=== PATIENT | male | born 1935 | race African-American/Black ===

== ENCOUNTER → 2017-06-05 17:18 | Outpatient (CLI) | payer MEDICARE, SELFPAY ==
--- NOTE | 2017-06-05 17:45 | RAD_ITS ---
STUDY: X-RAY CHEST REASON FOR EXAM: Male, 81 years old. Cough, bronchitis TECHNIQUE: Frontal and lateral views COMPARISON: None. FINDINGS: Sternotomy wires are again noted. The lungs are not fully expanded. There is no demonstrated pleural abnormality. Stable mild cardiomegaly. Normal mediastinum and donnie. Normal visualized pulmonary arteries. Calcified aortic arch and descending thoracic aorta. Degenerative changes and scoliosis of the thoracic spine. Normal visualized ribs, clavicles, and shoulders. There is no demonstrated abnormality of the visualized soft tissue structures of the upper abdomen. RAD/Chest PA and Lateral IMPRESSION: No acute pulmonary pathology of the chest. Electronically Signed: Bakari Faust DO at 18:21 EST Tel [phone], Service support ,
== END ==
PROVIDERS: Family Provider Family Medicine Geriatric Medicine; PCP Family Medicine Geriatric Medicine; Visit Provider Family Medicine Geriatric Medicine
DX: J40 Bronchitis, not specified as acute or chronic (principal); R68.83 Chills (without fever)
CPT/HCPCS: 71046; 87633

== ENCOUNTER → 2017-08-05 16:37 | Outpatient (CLI) | payer MEDICARE, SELFPAY ==
[2017-08-05 17:09] LABS: Absolute Lymphocyte Count 2.29 X10^3/ul (0.83-4.51); Basophil# 0.01 X10^3/uL; Basophil% 0.1 % (0-1); Eosinophil# 0.07 X10^3/uL; Hematocrit 40.2 % (40-54); Hemoglobin 13.4 g/dl (13.0-16.5); Lymphocyte # 2.29 X10^3/ul (4.0); Lymphocyte % 33.5 % (19-41); Mean Corp Hgb Conc 33.3 g/gl (32-36); Mean Corpuscular Hgb 30.7 pg (27.0-32.0); Mean Corpuscular Volume 92.2 fL (80-94); Monocyte# 0.42 X10^3/uL; Monocyte% 6.1 % (0-10); Neutrophil # 4.04 X10^3/uL (2.7-7.7); Neutrophil % 59.3 % (47-70); POSITIVE COUNT NO; POSITIVE DIFFERENTIAL NO; POSITIVE MORPHOLOGY NO; Platelet Count 192 K/mm3 (150-450); RBC Distribution Width CV 16.1 % (11.6-14.6); RBC Distribution Width SD 53.5 fl (35.1-43.9); Red Blood Count 4.36 M/mm3 (4.6-6.2); White Blood Count 6.8 K/mm3 (4.4-11.0)
[2017-08-05 17:34] LABS: Erythrocyte Sedimentation Rate 29 mm/hr (0-20)
[2017-08-05 17:56] LABS: Anion Gap 6 (5-15); BUN 17 mg/dL (7-18); CRP < 2.90 mg/L (0.0-3.0); Calcium,Total 9.3 mg/dL (8.5-10.1); Chloride 107 mmol/L (98-107); Creatinine, Serum 1.31 mg/dL (0.70-1.30); EST Glomerular Filtration Rate 56 mL/min (>60); Est Glom Filt Rate - Afr Amer 68 mL/min (>60); Glucose 81 mg/dL (74-106); Potassium 4.5 mmol/L (3.5-5.1); Sodium Level 141 mmol/L (136-145); Uric Acid 7.6 mg/dL (3.5-7.2)
== END ==
PROVIDERS: Family Provider Family Medicine Geriatric Medicine; PCP Family Medicine Geriatric Medicine; Visit Provider Family Medicine Geriatric Medicine
DX: M25.569 Pain in unspecified knee (principal); M79.609 Pain in unspecified limb
CPT/HCPCS: 36415; 80048; 84550; 85025; 85652; 86140

== ENCOUNTER → 2017-08-06 08:47 | Outpatient (CLI) | payer MEDICARE, SELFPAY ==
--- NOTE | 2017-08-05 16:59 | RAD_ITS ---
STUDY: X-RAY - RIGHT KNEE REASON FOR EXAM: Male, 81 years old. Osteoarthritis TECHNIQUE: 3 view(s) of the knee. COMPARISON: 02/03/2013 FINDINGS: Normal visualized distal femur. Normal visualized proximal tibia and fibula. Normal proximal tibiofibular articulation. There is spurring along the articular surface of the patella. There is moderate degenerative arthrosis of the medial femorotibial compartment with moderate joint space narrowing. There is moderate degenerative arthrosis of the lateral femorotibial compartment with moderate joint space narrowing. There is patella janessa. There is no demonstrated joint effusion. There are atherosclerotic calcifications. RAD/Knee 3 Views IMPRESSION: Degenerative changes. No acute bony abnormality. Electronically Signed: Vipul Phipps DO at 10:34 EDT Tel , Service support ,
--- NOTE | 2017-08-06 09:21 | VDLE_ITS ---
Reason For Study: LEG PAIN AND SWELLING RIGHT LEFT GSV is normal. GSV is normal. CFV is compressible, spontaneous, phasic, CFV is compressible, spontaneous, phasic, competent and demonstrates normal competent, and demonstrates normal augmentation. augmentation. FV is compressible, spontaneous, phasic, FV and POP V are patent, compressible, competent and demonstrates normal spontaneous, phasic and demonstrate augmentation. INCOMPETENCY with augmentation. POP V is compressible, spontaneous, phasic, T/P Trunk is compressible. competent and demonstrates normal PTV is compressible. augmentation. LT PerV is compressible. T/P Trunk is compressible. PTV is compressible. RT PerV is compressible. Procedure Exam performed in department. A preliminary report was called and/or faxed to Dr. Tello. Interpretation Summary Deep veins of the lower extremities are bilaterally patent and compressible segmentally. There is no evidence of deep vein thrombosis on either side. Valvular competence appears intact within the proximal deep venous system on the right . On the left, the femoral vein and popliteal vein are incompetent. The left common femoral vein is competent. The greater saphenous veins appear bilaterally patent and compressible segmentally. Ordering Physician: Ashvin Tello Referring Physician: Ashvin Tello Chi Performed By: Binta Marin RVT
== END ==
PROVIDERS: Family Provider Family Medicine Geriatric Medicine; PCP Family Medicine Geriatric Medicine; Visit Provider Family Medicine Geriatric Medicine
DX: R60.0 Localized edema (principal); M17.9 Osteoarthritis of knee, unspecified; R60.9 Edema, unspecified
CPT/HCPCS: 73562; 93970

== ENCOUNTER 2017-10-14 16:41 | Observation (INO) | payer MEDICARE, SELFPAY ==
[2017-10-14] VITALS (10 sets, daily range): BP systolic 127–162; BP diastolic 63–83; PULSE 69–84; RESP 13–22; TEMP 36.8–37.1; O2SAT 93–98; BMI 35.3; BMI 33.5; BMI 33.6
--- NOTE | 2017-10-14 16:53 | EKG12_ITS ---
Test Reason : CP Blood Pressure : / mmHG Vent. Rate : 079 BPM Atrial Rate : 079 BPM P-R Int : 178 ms QRS Dur : 098 ms QT Int : 402 ms P-R-T Axes : 013 -55 -05 degrees QTc Int : 460 ms Sinus rhythm with frequent Premature ventricular complexes Left anterior fascicular block Abnormal ECG Confirmed by ALEXANDER GARZON, KWESI ([id number]), editorial project manager ISABELLE WYMAN ([id number]) on 10/17/2017 1:37:12 PM Referred By: SYEDA Confirmed By:KWESI MUNOZ MD
--- NOTE | 2017-10-14 16:55 | RAD_ITS ---
STUDY: X-RAY CHEST REASON FOR EXAM: Male, 82 years old. PT WITH SUDDEN ONSET OF STERNAL CHEST PAIN WHEN AT EYE DR. TECHNIQUE: Single AP portable view of the chest. COMPARISON: 06.05.17. FINDINGS: The lungs are clear and expanded. There is no demonstrated pleural abnormality. There are calcifications of the coronary arteries. Normal mediastinum and donine. Normal visualized pulmonary arteries. There is atherosclerotic tortuosity of the aortic arch and descending thoracic aorta. There are diffuse degenerative changes of the visualized thoracic spine. There is degenerative osteoarthritis of the bilateral shoulders. There is no demonstrated abnormality of the visualized soft tissue structures of the upper abdomen. RAD/Chest 1 View (Portable) IMPRESSION: Normal x-ray examination of the chest. Electronically Signed: Andrew Chen MD at 17:27 EDT , Service support ,
[2017-10-14 17:49] LABS: Absolute Lymphocyte Count 2.77 X10^3/ul (0.83-4.51); Absolute Neutrophil Count 3.7 X10^3/uL (2.0-7.7); Basophil# 0.02 X10^3/uL; Basophil% 0.3 % (0-1); Eosinophils% 1.4 % (0-5); Hematocrit 43.5 % (40-54); Hemoglobin 14.7 g/dl (13.0-16.5); Lymphocyte # 2.77 X10^3/ul (4.0); Lymphocyte % 38.4 % (19-41); Mean Corp Hgb Conc 33.8 g/gl (32-36); Mean Corpuscular Hgb 31.5 pg (27.0-32.0); Mean Corpuscular Volume 93.3 fL (80-94); Mean Platelet Vol. 10.6 fl (6.2-12.0); Monocyte# 0.58 X10^3/uL; Neutrophil # 3.74 X10^3/uL (2.7-7.7); Neutrophil % 51.8 % (47-70); Platelet Count 221 K/mm3 (150-450); RBC Distribution Width CV 14.9 % (11.6-14.6); RBC Distribution Width SD 50.1 fl (35.1-43.9); Red Blood Count 4.66 M/mm3 (4.6-6.2); White Blood Count 7.2 K/mm3 (4.4-11.0)
[2017-10-14 17:57] LABS: POSITIVE COUNT NO; POSITIVE DIFFERENTIAL NO; POSITIVE MORPHOLOGY NO
[2017-10-14 18:08] LABS: International Normalized Ratio 1.6; Prothrombin Time (Protime)PT. 18.7 SECONDS (11.7-14.9)
[2017-10-14 18:19] LABS: Anion Gap 7 (5-15); BUN 14 mg/dL (7-18); Calcium,Total 9.4 mg/dL (8.5-10.1); Chloride 107 mmol/L (98-107); Creatinine, Serum 1.27 mg/dL (0.70-1.30); EST Glomerular Filtration Rate 58 mL/min (>60); Est Glom Filt Rate - Afr Amer 70 mL/min (>60); Estimated Creatinine Clearance 42.65 ml/min; Glucose 79 mg/dL (74-106); Potassium 4.4 mmol/L (3.5-5.1); Sodium Level 143 mmol/L (136-145)
--- NOTE | 2017-10-14 18:38 | ED.VISSUMM ---
- ER Visit Summary Date of Service: 10/14/17 Chief Complaint: Substernal aching tightness with shortness of breath. History of Present Illness: The patient is a 82 M who presents to the emergency room by ambulance because of midsternal chest discomfort with dyspnea. He is a poor informant. He has known coronary disease with multiple vessels bypassed and multiple stents. He is on Coumadin for recent diagnosis of pulmonary embolus. He was given aspirin by paramedics and nitro. Nitro did help his discomfort. He does have history of orthopnea that is stable. He does report increased swelling of his lower extremities, however. Per review of old records he has had 5 vessels bypassed and multiple stents. He also has history of CVA, congestive heart failure, hypertension, hypercholesterolemia. He has history of tricuspid valve disease. Physical Examination: Vital signs are essentially unremarkable. HEENT exam is unremarkable. Heart is regular. There is no murmur, gallop or rub. Lungs are clear to auscultation. He has well-healed midsternal and midline abdominal scar. There is no abdominal bruit, palpable or pulsatile mass. Difficult to assess pulses because of swelling. There is no asymmetry, discoloration, leg vein distention or tenderness along the description deep venous system. There is no palpable cords. He is alert he is oriented. 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 Chest x-ray reveals median sternal wires. Mild cardiomegaly with limited story volume. No other interpretation was made. There is no evidence of pleural effusion. There is no abnormality of the osseous structures. CBC unremarkable. Electro panels unremarkable. INR is subtherapeutic at 1.6. Troponin is less than 0.015. Emergency Department Course and Treatment: Patient was treated with nitroglycerin sublingual. He received aspirin by squad. Cardiac workup was undertaken. Treatment Plan: PCU for further testing Disposition: Further testing and serial enzymes Impression: 1. Midsternal chest pain 2. History coronary disease 3. History of CVA 4. History hypertension 5. History of hypercholesterolemia 6. History of congestive heart failure 7. History of pulmonary embolus This note was generated with [employer] dictation software. It may contain incorrect words, spelling, and punctuation that were not noted in review of the chart prior to signing ED Disposition - Plan for ED Patient: Chief Complaint: Chest Pain Referrals: Ashvin Tello Chi, MD [Primary Care Provider] -
--- NOTE | 2017-10-14 19:07 | HP.PCM_ITS ---
Problem List (1) Chest pain Status: Acute Qualifiers: Ischemic chest pain type: stable angina pectoris History of Present Illness Date of Admission: 10/14/17 Chief Complaint: chest pain The patient is a 82 year old M with a significant history of multiple CVAs/TIA; CAD with CABG and multiple stents; CHF; pulmonary embolism on warfarin therapy, hypertension and hyperlipidemia who presented with sudden onset excruciating chest pain that started on the day of his admission. 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 The paramedics were called and he was brought to the emergency department. Associated with symptoms is shortness of breath. The patient chest pain improved with nitroglycerin. The patient is a known patient of [facility] and had a last stress test in 2016 which did not show any evidence of ischemia. Past Medical History Past Medical History (Chronic Problems): Chronic Problems (Last Reviewed 10/14/17 @ 19:52 by Bobo Connell MD) History of left heart catheterization (Chronic) Prior to CABG 09/12/2000 @ [facility]; 05/01/[address] Yancey @ [facility]; 08/27/2012 @ [facility] per Dr. Alcala Atherosclerotic heart disease of [place] coronary artery with other forms of angina pectoris (Chronic) CASTILLO graft to LAD, radial art graft to RCA, saphenous vein graft to CFX, saphenous vein graft to OM 1, OM 2 OTCAm 06/21/02 of distal & proximal RCA, PTCA with EASTON to proximal LAD 07/2012 Dizziness and giddiness (Chronic) Precordial chest pain (Chronic) Aortocoronary bypass status (Chronic) CABG 09/12/2000 X 5 vessels: CASTILLO to LAD,left radial artery to RCA, SVG to first snd second DX branches of the LAD and SVG to the lateral CX which 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) Right pulmonary embolus (Chronic) Stroke (Chronic) Hyperlipidemia (Chronic) Hypertension (Chronic) Medical History: Medical History (Last Reviewed 10/14/17 @ 19:52 by Bobo Connell MD) Atherosclerotic heart disease of [place] coronary artery with other forms of angina pectoris (Chronic) I25.118 CASTILLO graft to LAD, radial art graft to RCA, saphenous vein graft to CFX, saphenous vein graft to OM 1, OM 2 OTCAm 06/21/02 of distal & proximal RCA, PTCA with EASTON to proximal LAD 07/2012 Dizziness and giddiness (Chronic) R42 Precordial chest pain (Chronic) 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) Z79.899 Shortness of breath (Chronic) R06.02 Tricuspid valve disorder (Chronic) I07.9 Pulmonary hypertension (Chronic) I27.20 Congestive heart failure (Chronic) I50.9 Systolic dysfunction Family history of hypertension (Chronic) Z82.49 Atherosclerotic heart disease of [place] coronary artery without angina pectoris (Chronic) I25.10 Right pulmonary embolus (Chronic) I26.99 Stroke (Chronic) I63.9 Hyperlipidemia (Chronic) E78.5 Hypertension (Chronic) I10 Allergies diazepam [From Valium] Allergy (Intermediate, Verified 10/14/17 16:42) Other HALLUCINATIONS morphine Allergy (Intermediate, Verified 10/14/17 16:42) Other TWITCHES Home Medications: Ambulatory Orders Medication Instructions Recorded Aspirin [Aspirin, Baby] 81 mg PO DAILY@0800 06/23/13 Metoprolol(XL)Succ [Toprol Xl 25 mg PO DAILY 06/23/13 (Beta Luis Felipe)] Cetirizine HCl [Zyrtec] 10 mg PO DAILY 03/25/15 Finasteride [Proscar] 5 mg PO DAILY 03/25/15 Folic Acid/Vit Bcomp,C [B-Complex 400 mcg PO DAILY 03/25/15 with Vit C Caplet] Furosemide [Lasix] 40 mg PO DAILY 03/25/15 Isosorbide Mononitrate [Isosorbide 60 mg PO DAILY 03/25/15 Mononitrate ER] Multivit-Min/FA/Lycopen/Lutein 1 ea PO DAILY 03/25/15 [Centrum Silver Tablet] Nitroglycerin [Nitrostat] 0.4 mg SUBLINGUAL Q5M PRN 03/25/15 Oxybutynin Chloride [Ditropan Xl] 10 mg PO DAILY 03/25/15 atorvastatin 40 mg tablet 40 mg PO QHS tab 05/08/17 ergocalciferol (vitamin D2) 50,000 50,000 unit PO QMONTH 05/08/17 unit capsule folic acid 400 mcg tablet 400 mcg PO QDAY 05/08/17 lubiprostone 24 mcg capsule 24 mcg PO BID cap 05/08/17 magnesium oxide 400 mg tablet 400 mg PO QDAY tab 05/08/17 pantoprazole 20 mg tablet,delayed See Label Instructions PO QDAY 05/08/17 release hydrocodone 5 mg-acetaminophen 325 1 tab PO Q6H PRN 06/05/17 mg tablet warfarin 5 mg tablet 5 mg PO .COMPLEX tab 06/05/17 Surgical History: Surgical History (Last Reviewed 10/14/17 @ 19:52 by Bobo Connell MD) History of left heart catheterization (Chronic) Z98.890 Prior to CABG 09/12/2000 @ [facility]; 05/01/[address] Yancey @ [facility]; 08/27/2012 @ [facility] per Dr. 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 Monet [facility] Surgical History: coronary bypass surgery, total hip arthroplasty, - - Hiatal hernia surgery. Lives: Spouse/ Significant Other Smoking Status: Former smoker - *Family History Maternal Family History: Family History (Last Reviewed 06/05/17 @ 15:25 by Fito Alcala MD) Father No problems noted. Mother Cancer Brother Throat cancer Brother COPD (chronic obstructive pulmonary disease) Brother No problems noted. Sister COPD (chronic obstructive pulmonary disease) Heart disease Sister COPD (chronic obstructive pulmonary disease) History Items: No pertinent history Paternal Family History: Family History (Last Reviewed 06/05/17 @ 15:25 by Fito Alcala MD) Father No problems noted. Mother Cancer Brother Throat cancer Brother COPD (chronic obstructive pulmonary disease) Brother No problems noted. Sister COPD (chronic obstructive pulmonary disease) Heart disease Sister COPD (chronic obstructive pulmonary disease) History Items: No pertinent history Review of Systems Constitutional: Reports: Fatigue. Denies: Anorexia Eyes: Denies: Double vision, Pain HEENT: Denies: Head Aches, Sinus Congestion, Sinus Drainage Cardiovascular: Reports: Chest Pain, Chest Tightness, Orthopnea - (Chronic) Respiratory: Reports: Shortness of Breath. Denies: Cough, Shortness of breath at rest, Sputum production Gastrointestinal: Denies: Abdominal Pain, Nausea, Vomiting Genitourinary: Denies: Dysuria Musculoskeletal: Reports: Back Pain Skin: Denies: Rash, Wounds Neurological: Denies: Numbness, Tingling, Focal weakness Psychiatric: Denies: Anxiety, Depression, Homicidal Ideations, Suicidal Ideations Hematologic/ Lymphatic: Denies: Easy Bruising, Easy Bleeding VTE Information - Inpt Only VTE Present on Admission: No VTE Mechan Device Prophylaxis: None VTE Pharm Prophylaxis ordered?: No Reason prophylaxis not ordered:: Medical Contraindication - On warfarin for a history of PE. Patient Problems: Active and Suspected Problems (Last Reviewed 10/14/17 @ 19:52 by Bobo Connell MD) Chest pain (Acute) - Physical Exam General: Alert, Oriented x3, Cooperative HEENT: Atraumatic, PERRLA, EOMI, Normocephalic Neck: Supple, No JVD, Negative Carotid Bruits Lungs: Clear to auscultation, Normal air movement Cardiovascular: Regular rate, No murmurs Abdomen: Bowel Sounds Present Extremities: No edema, Capillary Refill Less than 3 Seconds Skin: No rashes, No breakdown Musculoskeletal: No Tenderness to Palpation of Joints or Extremities Neurological: Cranial nerves II-XII grossly intact, - - Motor strength 2/5 in right lower extremity. (Previous CVA).All other extremities 5/5. Range of motion severely limited in right lower extremity. Vital Signs Temp Pulse Resp BP Pulse Ox 98.7 F 71 22 H 152/78 H 95 10/14/17 16:43 10/14/17 18:00 10/14/17 18:00 10/14/17 18:00 10/14/17 18:00 Oxygen Flow Rate (L/min) 2 Oxygen Delivery Method Nasal Cannula Weight: 102.3 kg Body Mass Index (BMI) 35.3 Laboratory Tests Past 24 Hrs 10/14/17 10/14/17 10/14/17 16:55 16:55 16:55 WBC 7.2 RBC 4.66 Hgb 14.7 Hct 43.5 MCV 93.3 MCH 31.5 MCHC 33.8 RDW 14.9 H RDW Differential 50.1 H Plt Count 221 MPV 10.6 Immature Gran % (Auto) 0.100 Neut % (Auto) 51.8 Lymph % (Auto) 38.4 Ballard % (Auto) 8.0 Eos % (Auto) 1.4 Baso % (Auto) 0.3 Absolute Neuts (auto) 3.7 Absolute Lymphs (auto) 2.77 Total Counted Not Reportable PT 18.7 H INR 1.6 Sodium 143 Potassium 4.4 Chloride 107 Carbon Dioxide 29.0 Anion Gap 7 BUN 14 Creatinine 1.27 Estim Creat Clear Calc 42.65 Est GFR (MDRD) Af Amer 70 Est GFR (MDRD) Non-Af 58 L BUN/Creatinine Ratio 11.0 Glucose 79 Calcium 9.4 Troponin I < 0.015 Assessment/Plan All Active Problems (Last Reviewed 10/14/17 @ 19:52 by Bobo Connell MD) Chest pain (Acute) This is an 82 year old gentleman with a significant history of hypertension, CAD status post CABG and stents, CVA, CHF and hyperlipidemia who is a known patient of [facility] presenting with sudden onset chest pain that improved dramatically with nitroglycerin. His last stress test in 2015 did not show evidence of ischemia. His current presentation is concerning for stable angina. Chest pain Likely due to stable angina. However because of his risk factors will continue cardiac enzymes. First cardiac enzymes was negative. Because patient is not known patient of [facility] will consult cardiology. Chest x-ray with a calcification of coronary arteries Nitroglycerin as needed for chest pain The patient received aspirin 324 in route to the ED. Continue aspirin 81 mg daily. Continue metoprolol succinate Continue isosorbide mononitrate Lipitor continued Hypertension Metoprolol and Imdur continue as above Hydralazine as needed for systolic blood pressure 101 60 History of PE On home warfarin INR is sub-therapeutic at 1.6 Warfarin dose adjusted for 5 mg daily to 7.5 mg daily. Daily PT/INR DVT prophylaxis continue Coumadin. Code Visit Inpatient E&M: 99160 Init Hosp L2
--- NOTE | 2017-10-14 20:55 | EKG12_ITS ---
Test Reason : CP REPEAT Blood Pressure : / mmHG Vent. Rate : 066 BPM Atrial Rate : 066 BPM P-R Int : 204 ms QRS Dur : 100 ms QT Int : 434 ms P-R-T Axes : 028 -50 000 degrees QTc Int : 454 ms Poor data quality, interpretation may be adversely affected Sinus rhythm with occasional Premature ventricular complexes and Fusion complexes Left anterior fascicular block Abnormal ECG When compared with ECG of 14-OCT-2017 16:45, MANUAL COMPARISON REQUIRED, DATA IS UNCONFIRMED Confirmed by ALEXANDER GARZON, KWESI ([id number]), development editor ISABELLE WYMAN ([id number]) on 10/17/2017 1:52:54 PM Referred By: JUANI Confirmed By:KWESI MUNOZ MD
[2017-10-14] MEDS: Atorvastatin Calcium 40 MG Tablet PO (23:17)
[2017-10-15] VITALS (8 sets, daily range): BP systolic 110–147; BP diastolic 67–71; PULSE 60–66; RESP 14–16; TEMP 36.7–36.9; O2SAT 93–94
[2017-10-15 04:23] LABS: Absolute Lymphocyte Count 2.62 X10^3/ul (0.83-4.51); Absolute Neutrophil Count 3.7 X10^3/uL (2.0-7.7); Basophil# 0.02 X10^3/uL; Basophil% 0.3 % (0-1); Eosinophil# 0.11 X10^3/uL; Eosinophils% 1.6 % (0-5); Hematocrit 40.6 % (40-54); Hemoglobin 13.7 g/dl (13.0-16.5); Lymphocyte # 2.62 X10^3/ul (4.0); Lymphocyte % 37.6 % (19-41); Mean Corp Hgb Conc 33.7 g/gl (32-36); Mean Corpuscular Hgb 31.5 pg (27.0-32.0); Mean Corpuscular Volume 93.3 fL (80-94); Mean Platelet Vol. 10.6 fl (6.2-12.0); Monocyte# 0.48 X10^3/uL; Monocyte% 6.9 % (0-10); Neutrophil # 3.72 X10^3/uL (2.7-7.7); Neutrophil % 53.5 % (47-70); Platelet Count 201 K/mm3 (150-450); RBC Distribution Width CV 14.7 % (11.6-14.6); RBC Distribution Width SD 50.3 fl (35.1-43.9); Red Blood Count 4.35 M/mm3 (4.6-6.2)
[2017-10-15 04:24] LABS: POSITIVE COUNT NO; POSITIVE DIFFERENTIAL NO; POSITIVE MORPHOLOGY NO
[2017-10-15 04:33] LABS: Anion Gap 10 (5-15); BUN 15 mg/dL (7-18); BUN/Creat Ratio 14.3 RATIO (10-20); Calcium,Total 8.9 mg/dL (8.5-10.1); Chloride 107 mmol/L (98-107); Creatinine, Serum 1.05 mg/dL (0.70-1.30); EST Glomerular Filtration Rate 72 mL/min (>60); Est Glom Filt Rate - Afr Amer 87 mL/min (>60); Estimated Creatinine Clearance 51.59 ml/min; Glucose 93 mg/dL (74-106); Potassium 3.9 mmol/L (3.5-5.1); Sodium Level 142 mmol/L (136-145)
--- NOTE | 2017-10-15 05:55 | EKG12_ITS ---
Test Reason : AM EKG Blood Pressure : / mmHG Vent. Rate : 064 BPM Atrial Rate : 064 BPM P-R Int : 210 ms QRS Dur : 108 ms QT Int : 432 ms P-R-T Axes : 022 -47 -06 degrees QTc Int : 445 ms Sinus rhythm with 1st degree A-V block Left anterior fascicular block Left ventricular hypertrophy Abnormal ECG When compared with ECG of 14-OCT-2017 21:44, MANUAL COMPARISON REQUIRED, DATA IS UNCONFIRMED Confirmed by ALEXANDER GARZON, KWESI ([id number]), movie editor ISABELLE WYMAN ([id number]) on 10/17/2017 1:51:58 PM Referred By: JUANI Confirmed By:KWESI MUNOZ MD
[2017-10-15 07:38] LABS: Partial Thromboplast Time 31.8 Seconds (24.1-36.2)
--- NOTE | 2017-10-15 08:17 | PCM.CONS.C ---
Reason for Consult Date of Consultation: 10/15/17 Reason for Consultation: Chest pain. History of Present Illness: LOVELY SINGH, is a 81 M who presents to the emergency room yesterday. He had been doing well and in his stable state of health until he went to the academic interventionist for a procedure. While there he apparently demonstrated and developed what he says was excruciating chest discomfort. There was no radiation of the discomfort no dizziness or diaphoresis. The emergency medical squad was called and brought him to the emergency room. He says that he had some improvement with sublingual nitroglycerin. He was admitted for further workup.He is a gentleman with a history of coronary artery disease status post coronary bypass surgery. 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 He denies any shortness breath or paroxysmal nocturnal dyspnea or pedal edema. 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 The CASTILLO to the LAD was minimally functional and he had an angioplasty and stenting to the left anterior descending artery. His last stress test was in 2015 with no obvious evidence of ischemia. He has had no neck arm or jaw discomfort suggest angina no dizziness no diaphoresis no near syncope or syncope. His physical exam today demonstrates clear lung colon regular rate and rhythm and no pedal edema. He is scheduled for an awaiting stress testing this morning. [] Past Medical History Allergies/Adverse Reactions: Allergies diazepam [From Valium] Allergy (Intermediate, Verified 10/14/17 16:42) Other HALLUCINATIONS morphine Allergy (Intermediate, Verified 10/14/17 16:42) Other TWITCHES Home Medications: Ambulatory Orders Medication Instructions Recorded Aspirin [Aspirin, Baby] 81 mg PO DAILY@0800 06/23/13 Metoprolol(XL)Succ [Toprol Xl 25 mg PO DAILY 06/23/13 (Beta Luis Felipe)] Cetirizine HCl [Zyrtec] 10 mg PO DAILY 03/25/15 Finasteride [Proscar] 5 mg PO DAILY 03/25/15 Folic Acid/Vit Bcomp,C [B-Complex 400 mcg PO DAILY 03/25/15 with Vit C Caplet] Furosemide [Lasix] 40 mg PO DAILY 03/25/15 Isosorbide Mononitrate [Isosorbide 60 mg PO DAILY 03/25/15 Mononitrate ER] Multivit-Min/FA/Lycopen/Lutein 1 ea PO DAILY 03/25/15 [Centrum Silver Tablet] Nitroglycerin [Nitrostat] 0.4 mg SUBLINGUAL Q5M PRN 03/25/15 Oxybutynin Chloride [Ditropan Xl] 10 mg PO DAILY 03/25/15 atorvastatin 40 mg tablet 40 mg PO QHS tab 05/08/17 ergocalciferol (vitamin D2) 50,000 50,000 unit PO QMONTH 05/08/17 unit capsule folic acid 400 mcg tablet 400 mcg PO QDAY 05/08/17 lubiprostone 24 mcg capsule 24 mcg PO BID cap 05/08/17 magnesium oxide 400 mg tablet 400 mg PO QDAY tab 05/08/17 pantoprazole 20 mg tablet,delayed See Label Instructions PO QDAY 05/08/17 release hydrocodone 5 mg-acetaminophen 325 1 tab PO Q6H PRN 06/05/17 mg tablet warfarin 5 mg tablet 5 mg PO .COMPLEX tab 06/05/17 Past Medical History (Chronic Problems): Chronic Problems (Last Reviewed 10/14/17 @ 19:52 by Bobo Connell MD) History of left heart catheterization (Chronic) Prior to CABG 09/12/2000 @ [facility]; 05/01/[address] Yancey @ [facility]; 08/27/2012 @ [facility] per Dr. Alcala Atherosclerotic heart disease of [place] coronary artery with other forms of angina pectoris (Chronic) CASTILLO graft to LAD, radial art graft to RCA, saphenous vein graft to CFX, saphenous vein graft to OM 1, OM 2 OTCAm 06/21/02 of distal & proximal RCA, PTCA with EASTON to proximal LAD 07/2012 Dizziness and giddiness (Chronic) Precordial chest pain (Chronic) Aortocoronary bypass status (Chronic) CABG 09/12/2000 X 5 vessels: CASTILLO to LAD,left radial artery to RCA, SVG to first snd second DX branches of the LAD and SVG to the lateral CX which 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 - *Family History Maternal Family History: Family History (Last Reviewed 06/05/17 @ 15:25 by Fito Alcala MD) Father No problems noted. Mother Cancer Brother Throat cancer Brother COPD (chronic obstructive pulmonary disease) Brother No problems noted. Sister COPD (chronic obstructive pulmonary disease) Heart disease Sister COPD (chronic obstructive pulmonary disease) History Items: No pertinent history Paternal Family History: Family History (Last Reviewed 06/05/17 @ 15:25 by Fito Alcala MD) Father No problems noted. Mother Cancer Brother Throat cancer Brother COPD (chronic obstructive pulmonary disease) Brother No problems noted. Sister COPD (chronic obstructive pulmonary disease) Heart disease Sister COPD (chronic obstructive pulmonary disease) History Items: No pertinent history Lives: Spouse/ Significant Other Smoking Status: Former smoker Alcohol: None Drugs: None Review of Systems - Review of Systems General: Denies: Fever, Night Sweats, Fatigue Cardiovascular: Reports: Chest Discomfort. Denies: Shortness of Breath, Orthopnea, PND, Peripheral Edema, Palpitations, Lightheadedness, Dizziness, Near Syncope, Syncope Respiratory: Denies: Cough, Sputum Production, Hemoptysis Gastrointestinal: Denies: Hematemesis, Hematochezia, Melena Genitourinary: Denies: Dysuria, Hematuria Skin: Denies: Rash Subjectve: Pleasant gentleman in no distress sleeping. Objective: Vital Signs Temp Pulse Resp BP Pulse Ox 98.4 F 64 16 137/71 H 94 10/15/17 08:07 10/15/17 08:07 10/15/17 08:07 10/15/17 08:07 10/15/17 08:07 Oxygen Delivery Method Room Air Weight: 214 lb 4.629 oz Body Mass Index (BMI) 33.5 Intake and Output for Last 24 Hours 10/13/17 10/14/17 10/15/17 23:59 23:59 23:59 Intake Total 720 / 720 Output Total 1150 / 1150 Balance -430 / -430 General: Awake, Alert, Oriented x 3 HEENT: PERRL, EOMI, Sclera Non Icteric Neck: Supple, Good ROM, No Lymph Node Enlargement Lungs: Clear to auscultation Cardiovascular: Regular Rhythm, Normal S1, Normal S2, No Murmurs, No Rubs, No Gallops Vascular: No Carotid Bruits, Normal Femoral Pulses, Normal Radial Pulses, Normal Dorsalis Pedal Pulse, Normal Posterior Tibial Pulses Abdomen: Bowel Sounds Present, Soft, Non Tender, No HSM, No Organomegaly Extremities: No Cyanosis, No Clubbing, No edema Neurological: No Focal Motor or Sensory Deficit 10/14/17 21:41: Troponin I < 0.015 10/15/17 00:01: Troponin I < 0.015 10/15/17 03:09: Sodium 142, Potassium 3.9, Chloride 107, Carbon Dioxide 25.0, Anion Gap 10, BUN 15, Creatinine 1.05, Est GFR (MDRD) Af Amer 87, Est GFR (MDRD) Non-Af 72, BUN/Creatinine Ratio 14.3, Glucose 93, Calcium 8.9 10/15/17 03:09: Troponin I < 0.015 10/15/17 03:09: WBC 7.0, RBC 4.35 L, Hgb 13.7, Hct 40.6, MCV 93.3, MCH 31.5, MCHC 33.7, RDW 14.7 H, RDW Differential 50.3 H, Plt Count 201, MPV 10.6, Immature Gran % (Auto) 0.100, Neut % (Auto) 53.5, Lymph % (Auto) 37.6, [place] % (Auto) 6.9, Eos % (Auto) 1.6, Baso % (Auto) 0.3, Absolute Neuts (auto) 3.7, Total Counted Not Reportable 10/15/17 07:15: APTT 31.8 Rhythm: EKG: Normal sinus rhythm with a rate of 64 bpm Assessment/Plan 1. Chest pain. Patient has known coronary artery disease history but experienced chest discomfort which was uncharacteristic for angina. His EKG is noted to be normal with no changes in his troponins thus far have been normal. I would recommend and concur with obtaining a pharmacologic myocardial perfusion stress test. If the above is normal I would suggest continued medical therapy. 2. Hypertension Patient has known hypertensive heart disease and his blood pressure appears to well controlled on the current medical therapy I would not recommend we make any changes at this particular time. 3. Coronary artery disease. Patient is status post carotid bypass surgery. His anatomy is well detailed in my HPI. My recommendations at this time will be dependent on what his stress test shows. 4. Previous pulmonary embolism. He does have a history of previous pulmonary embolism but his most recent echocardiogram demonstrated ejection fraction of 55-60% with normal pulmonary pressures. I do not think that this chest pain is a manifestation of that. Thank you for allowing me to participate in the care of your patient. Please don't hesitate to call if any issues arise
--- NOTE | 2017-10-15 08:22 | CON.PCM_ITS ---
Reason for Consult Date of Consultation: 10/15/17 Reason for Consultation: Chest pain. History of Present Illness: LOVELY SINGH, is a 81 M who presents to the emergency room yesterday. He had been doing well and in his stable state of health until he went to the poultry scientist for a procedure. While there he apparently demonstrated and developed what he says was excruciating chest discomfort. There was no radiation of the discomfort no dizziness or diaphoresis. The emergency medical squad was called and brought him to the emergency room. He says that he had some improvement with sublingual nitroglycerin. He was admitted for further workup.He is a gentleman with a history of coronary artery disease status post coronary bypass surgery. 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 He denies any shortness breath or paroxysmal nocturnal dyspnea or pedal edema. 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 The CASTILLO to the LAD was minimally functional and he had an angioplasty and stenting to the left anterior descending artery. His last stress test was in 2015 with no obvious evidence of ischemia. He has had no neck arm or jaw discomfort suggest angina no dizziness no diaphoresis no near syncope or syncope. His physical exam today demonstrates clear lung colon regular rate and rhythm and no pedal edema. He is scheduled for an awaiting stress testing this morning. [] Past Medical History Allergies/Adverse Reactions: Allergies diazepam [From Valium] Allergy (Intermediate, Verified 10/14/17 16:42) Other HALLUCINATIONS morphine Allergy (Intermediate, Verified 10/14/17 16:42) Other TWITCHES Home Medications: Ambulatory Orders Medication Instructions Recorded Aspirin [Aspirin, Baby] 81 mg PO DAILY@0800 06/23/13 Metoprolol(XL)Succ [Toprol Xl 25 mg PO DAILY 06/23/13 (Beta Luis Felipe)] Cetirizine HCl [Zyrtec] 10 mg PO DAILY 03/25/15 Finasteride [Proscar] 5 mg PO DAILY 03/25/15 Folic Acid/Vit Bcomp,C [B-Complex 400 mcg PO DAILY 03/25/15 with Vit C Caplet] Furosemide [Lasix] 40 mg PO DAILY 03/25/15 Isosorbide Mononitrate [Isosorbide 60 mg PO DAILY 03/25/15 Mononitrate ER] Multivit-Min/FA/Lycopen/Lutein 1 ea PO DAILY 03/25/15 [Centrum Silver Tablet] Nitroglycerin [Nitrostat] 0.4 mg SUBLINGUAL Q5M PRN 03/25/15 Oxybutynin Chloride [Ditropan Xl] 10 mg PO DAILY 03/25/15 atorvastatin 40 mg tablet 40 mg PO QHS tab 05/08/17 ergocalciferol (vitamin D2) 50,000 50,000 unit PO QMONTH 05/08/17 unit capsule folic acid 400 mcg tablet 400 mcg PO QDAY 05/08/17 lubiprostone 24 mcg capsule 24 mcg PO BID cap 05/08/17 magnesium oxide 400 mg tablet 400 mg PO QDAY tab 05/08/17 pantoprazole 20 mg tablet,delayed See Label Instructions PO QDAY 05/08/17 release hydrocodone 5 mg-acetaminophen 325 1 tab PO Q6H PRN 06/05/17 mg tablet warfarin 5 mg tablet 5 mg PO .COMPLEX tab 06/05/17 Past Medical History (Chronic Problems): Chronic Problems (Last Reviewed 10/14/17 @ 19:52 by Bobo Connell MD) History of left heart catheterization (Chronic) Prior to CABG 09/12/2000 @ [facility]; 05/01/[address] Yancey @ [facility]; 08/27/[address] [facility] per Dr. Alcala Atherosclerotic heart disease of [place] coronary artery with other forms of angina pectoris (Chronic) CASTILLO graft to LAD, radial art graft to RCA, saphenous vein graft to CFX, saphenous vein graft to OM 1, OM 2 OTCAm 06/21/02 of distal & proximal RCA, PTCA with EASTON to proximal LAD 07/2012 Dizziness and giddiness (Chronic) Precordial chest pain (Chronic) Aortocoronary bypass status (Chronic) CABG 09/12/2000 X 5 vessels: CASTILLO to LAD,left radial artery to RCA, SVG to first snd second DX branches of the LAD and SVG to the lateral CX which 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 Monet 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 - *Family History Maternal Family History: Family History (Last Reviewed 06/05/17 @ 15:25 by Fito Alcala MD) Father No problems noted. Mother Cancer Brother Throat cancer Brother COPD (chronic obstructive pulmonary disease) Brother No problems noted. Sister COPD (chronic obstructive pulmonary disease) Heart disease Sister COPD (chronic obstructive pulmonary disease) History Items: No pertinent history Paternal Family History: Family History (Last Reviewed 06/05/17 @ 15:25 by Fito Alcala MD) Father No problems noted. Mother Cancer Brother Throat cancer Brother COPD (chronic obstructive pulmonary disease) Brother No problems noted. Sister COPD (chronic obstructive pulmonary disease) Heart disease Sister COPD (chronic obstructive pulmonary disease) History Items: No pertinent history Lives: Spouse/ Significant Other Smoking Status: Former smoker Alcohol: None Drugs: None Review of Systems - Review of Systems General: Denies: Fever, Night Sweats, Fatigue Cardiovascular: Reports: Chest Discomfort. Denies: Shortness of Breath, Orthopnea, PND, Peripheral Edema, Palpitations, Lightheadedness, Dizziness, Near Syncope, Syncope Respiratory: Denies: Cough, Sputum Production, Hemoptysis Gastrointestinal: Denies: Hematemesis, Hematochezia, Melena Genitourinary: Denies: Dysuria, Hematuria Skin: Denies: Rash Subjectve: Pleasant gentleman in no distress sleeping. Objective: Vital Signs Temp Pulse Resp BP Pulse Ox 98.4 F 64 16 137/71 H 94 10/15/17 08:07 10/15/17 08:07 10/15/17 08:07 10/15/17 08:07 10/15/17 08:07 Oxygen Delivery Method Room Air Weight: 214 lb 4.629 oz Body Mass Index (BMI) 33.5 Intake and Output for Last 24 Hours 10/13/17 10/14/17 10/15/17 23:59 23:59 23:59 Intake Total 720 / 720 Output Total 1150 / 1150 Balance -430 / -430 General: Awake, Alert, Oriented x 3 HEENT: PERRL, EOMI, Sclera Non Icteric Neck: Supple, Good ROM, No Lymph Node Enlargement Lungs: Clear to auscultation Cardiovascular: Regular Rhythm, Normal S1, Normal S2, No Murmurs, No Rubs, No Gallops Vascular: No Carotid Bruits, Normal Femoral Pulses, Normal Radial Pulses, Normal Dorsalis Pedal Pulse, Normal Posterior Tibial Pulses Abdomen: Bowel Sounds Present, Soft, Non Tender, No HSM, No Organomegaly Extremities: No Cyanosis, No Clubbing, No edema Neurological: No Focal Motor or Sensory Deficit 10/14/17 21:41: Troponin I < 0.015 10/15/17 00:01: Troponin I < 0.015 10/15/17 03:09: Sodium 142, Potassium 3.9, Chloride 107, Carbon Dioxide 25.0, Anion Gap 10, BUN 15, Creatinine 1.05, Est GFR (MDRD) Af Amer 87, Est GFR (MDRD ) Non-Af 72, BUN/Creatinine Ratio 14.3, Glucose 93, Calcium 8.9 10/15/17 03:09: Troponin I < 0.015 10/15/17 03:09: WBC 7.0, RBC 4.35 L, Hgb 13.7, Hct 40.6, MCV 93.3, MCH 31.5, MCHC 33.7, RDW 14.7 H, RDW Differential 50.3 H, Plt Count 201, MPV 10.6, Immature Gran % (Auto) 0.100, Neut % (Auto) 53.5, Lymph % (Auto) 37.6, [place] % ( Auto) 6.9, Eos % (Auto) 1.6, Baso % (Auto) 0.3, Absolute Neuts (auto) 3.7, Total Counted Not Reportable 10/15/17 07:15: APTT 31.8 Rhythm: EKG: Normal sinus rhythm with a rate of 64 bpm Assessment/Plan 1. Chest pain. Patient has known coronary artery disease history but experienced chest discomfort which was uncharacteristic for angina. His EKG is noted to be normal with no changes in his troponins thus far have been normal. I would recommend and concur with obtaining a pharmacologic myocardial perfusion stress test. If the above is normal I would suggest continued medical therapy. 2. Hypertension Patient has known hypertensive heart disease and his blood pressure appears to well controlled on the current medical therapy I would not recommend we make any changes at this particular time. 3. Coronary artery disease. Patient is status post carotid bypass surgery. His anatomy is well detailed in my HPI. My recommendations at this time will be dependent on what his stress test shows. 4. Previous pulmonary embolism. He does have a history of previous pulmonary embolism but his most recent echocardiogram demonstrated ejection fraction of 55-60% with normal pulmonary pressures. I do not think that this chest pain is a manifestation of that. Thank you for allowing me to participate in the care of your patient. Please don't hesitate to call if any issues arise
[2017-10-15 09:29] LABS: International Normalized Ratio 1.6; Prothrombin Time (Protime)PT. 18.8 SECONDS (11.7-14.9)
--- NOTE | 2017-10-15 11:02 | STRESSREP ---
Stress Test Report Pharmacologic myocardial perfusion stress test. 82-year-old man with a history of coronary bypass surgery with a left internal mammary artery to the left anterior descending artery, left radial to the circumflex right coronary artery, saphenous vein graft to first and second diagonal branches and saphenous vein graft to lateral circumflex artery. Stress protocol: Resting EKG demonstrates sinus bradycardia with a rate of 59 bpm normal intervals and noted resting blood pressure is 122/84 mmHg. 0.4 mg of regadenoson was infused per usual protocol followed by rapid intravenous saline flush injection continuous EKG monitoring was performed. The patient maintained sinus rhythm throughout the recording the maximum heart rate was 81 bpm which was 58% of maximum predicted heart rate the maximum workload was 1 metabolic equivalent. The resting blood pressure is 122/84 with a final blood pressure 118/70 mmHg. Myocardial perfusion protocol. 14.4 mCi of technetium 99m sestamibi was injected stress images were obtained stress and rest images were reconstructed and compared in the short axis vertical long and horizontal long axis. Gated images were also obtained. Perfusion SPECT analysis: Review of the stress images demonstrate normal uptake of tracer noted in the septum anterior wall and lateral wall. The basal inferolateral wall has mild to moderately reduced perfusion on the stress images which is also present on the resting images. There is a hint of perhaps minimal improvement. No significant ischemia however is noted. Previous basal inferior infarct is present as well. The right ventricle is noted to be prominent. Gated SPECT analysis: The gated ejection fraction is 68%. Conclusion: Pharmacologic myocardial perfusion stress test with no significant ischemia noted. Previous basal inferior infarct is present. Minimal humaira-infarct ischemia cannot be completely excluded. Preserved ejection fraction.
[2017-10-15] MEDS: Folic Acid 1 MG Tablet 0.5 MG PO (11:49)
[2017-10-15] MEDS: Furosemide 20 MG Tablet PO (11:49)
[2017-10-15] MEDS: Loratadine 10 MG Tablet PO (11:49)
[2017-10-15] MEDS: Lubiprostone 24 MCG Capsule PO (11:49)
[2017-10-15] MEDS: Isosorbide Mononitrate 60 MG Tablet PO (11:49)
[2017-10-15] MEDS: Aspirin 81 MG TAB.CHEW PO (11:49)
[2017-10-15] MEDS: Pantoprazole Sodium 20 MG Tablet PO (11:50)
[2017-10-15] MEDS: Finasteride 5 MG Tablet PO (11:50)
[2017-10-15] MEDS: HYDROcodone Bitartrate/Apap 5/325 Tablet PO (11:50)
[2017-10-15] MEDS: Metoprolol(XL)Succ 25 MG Tablet PO (11:50)
--- NOTE | 2017-10-15 12:28 | CHAPLAIN ---
Type of Pastoral Visit _x__ Initial Visit ___ Follow-up Visit ___ On-call Visit ___ General Patient Visit ___ Spiritual Assessment ___ Family Conference ___ Bereavement ___ Rapid Response ___ Code Blue ___ Other (describe below) Pastoral Care Referral From _x__ Patient ___ Family ___ Nurse ___ Physician ___ Nut Chopper ___ Supervisor Refractory Products ___ Other (describe below) Sacrament/Intervention _x__ Active listening ___ Anointing ___ Jainism _x__ Bereavement ___ Communion _x__ Olivia exploration ___ _x__ Life review _x__ Prayer ___ Reconciliation ___ Sacrament of Sick _x__ Supportive presence ___ Wedding ___ Other (describe below) Pastoral Comments
--- NOTE | 2017-10-15 14:29 | PCM.DC ---
- Discharge Diagnoses Current Active Problems: Current Active and Chronic Problems (Last Reviewed 10/14/17 @ 19:52 by Bobo Connell MD) Chest pain (Acute) You will use the following diet at home:: Other - Resume previous diet Discharge Activity: Return to Normal Activity Call your doctor if you observe: Fever of 101 or Higher, Shortness of breath, Dizziness, Fainting spells, Chest pain Allergies/Adverse Reactions: Allergies diazepam [From Valium] Allergy (Intermediate, Verified 10/14/17 16:42) Other HALLUCINATIONS morphine Allergy (Intermediate, Verified 10/14/17 16:42) Other TWITCHES Medications to take at Discharge Aspirin [Aspirin, Baby] 81 mg PO DAILY@0800 06/23/13 Metoprolol(XL)Succ [Toprol Xl (Beta Luis Felipe)] 25 mg PO DAILY 06/23/13 Cetirizine HCl [Zyrtec] 10 mg PO DAILY 03/25/15 Finasteride [Proscar] 5 mg PO DAILY 03/25/15 Folic Acid/Vit Bcomp,C [B-Complex with Vit C Caplet] 400 mcg PO DAILY 03/25/15 Furosemide [Lasix] 40 mg PO DAILY 03/25/15 Isosorbide Mononitrate [Isosorbide Mononitrate ER] 60 mg PO DAILY 03/25/15 Multivit-Min/FA/Lycopen/Lutein [Centrum Silver Tablet] 1 ea PO DAILY 03/25/15 Nitroglycerin [Nitrostat] 0.4 mg SUBLINGUAL Q5M PRN 03/25/15 Oxybutynin Chloride [Ditropan Xl] 10 mg PO DAILY 03/25/15 atorvastatin 40 mg tablet 40 mg PO QHS tab 05/08/17 ergocalciferol (vitamin D2) 50,000 unit capsule 50,000 unit PO QMONTH 05/08/17 folic acid 400 mcg tablet 400 mcg PO QDAY 05/08/17 lubiprostone 24 mcg capsule 24 mcg PO BID cap 05/08/17 magnesium oxide 400 mg tablet 400 mg PO QDAY tab 05/08/17 pantoprazole 20 mg tablet,delayed release See Label Instructions PO QDAY 05/08/17 hydrocodone 5 mg-acetaminophen 325 mg tablet 1 tab PO Q6H PRN 06/05/17 warfarin 5 mg tablet 5 mg PO .COMPLEX tab 06/05/17 Primary Care Physician: Ashvin Tello Chi, MD [Primary Care Provider] - Please follow up with your Primary Care Physician in: 1-2 weeks Test Results: Test results from this visit will be discussed in further detail at your follow-up appointment, if applicable. Proposed Discharge Date: 10/15/17
--- NOTE | 2017-10-15 14:42 | DCINST_ITS ---
- Discharge Diagnoses Current Active Problems: Current Active and Chronic Problems (Last Reviewed 10/14/17 @ 19:52 by Bobo Connell MD) Chest pain (Acute) You will use the following diet at home:: Other - Resume previous diet Discharge Activity: Return to Normal Activity Call your doctor if you observe: Fever of 101 or Higher, Shortness of breath, Dizziness, Fainting spells, Chest pain Allergies/Adverse Reactions: Allergies diazepam [From Valium] Allergy (Intermediate, Verified 10/14/17 16:42) Other HALLUCINATIONS morphine Allergy (Intermediate, Verified 10/14/17 16:42) Other TWITCHES Medications to take at Discharge Aspirin [Aspirin, Baby] 81 mg PO DAILY@0800 06/23/13 Metoprolol(XL)Succ [Toprol Xl (Beta Luis Felipe)] 25 mg PO DAILY 06/23/13 Cetirizine HCl [Zyrtec] 10 mg PO DAILY 03/25/15 Finasteride [Proscar] 5 mg PO DAILY 03/25/15 Folic Acid/Vit Bcomp,C [B-Complex with Vit C Caplet] 400 mcg PO DAILY 03/25/15 Furosemide [Lasix] 40 mg PO DAILY 03/25/15 Isosorbide Mononitrate [Isosorbide Mononitrate ER] 60 mg PO DAILY 03/25/15 Multivit-Min/FA/Lycopen/Lutein [Centrum Silver Tablet] 1 ea PO DAILY 03/25/15 Nitroglycerin [Nitrostat] 0.4 mg SUBLINGUAL Q5M PRN 03/25/15 Oxybutynin Chloride [Ditropan Xl] 10 mg PO DAILY 03/25/15 atorvastatin 40 mg tablet 40 mg PO QHS tab 05/08/17 ergocalciferol (vitamin D2) 50,000 unit capsule 50,000 unit PO QMONTH 05/08/17 folic acid 400 mcg tablet 400 mcg PO QDAY 05/08/17 lubiprostone 24 mcg capsule 24 mcg PO BID cap 05/08/17 magnesium oxide 400 mg tablet 400 mg PO QDAY tab 05/08/17 pantoprazole 20 mg tablet,delayed release See Label Instructions PO QDAY hydrocodone 5 mg-acetaminophen 325 mg tablet 1 tab PO Q6H PRN 06/05/17 warfarin 5 mg tablet 5 mg PO .COMPLEX tab 06/05/17 Primary Care Physician: Ashvin Tello Chi, MD [Primary Care Provider] - Please follow up with your Primary Care Physician in: 1-2 weeks Test Results: Test results from this visit will be discussed in further detail at your follow- up appointment, if applicable. Proposed Discharge Date: 10/15/17
--- NOTE | 2017-10-21 10:26 | PCM.DC.SUM ---
Discharge Date and Diagnosis Date of Admission: 10/14/17 Date of Discharge: 10/15/17 - Primary Discharge Diagnosis Chest pain - Secondary Discharge Diagnosis Chronic Problems (Last Reviewed 10/14/17 @ 19:52 by Bobo Connell MD) Foraminal stenosis of lumbar region (Chronic) History of left heart catheterization (Chronic) Prior to CABG 09/12/2000 @ [facility]; 05/01/[address] Yancey @ [facility]; 08/27/[address] [facility] per Dr. 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 Electronically Signed: Andrew Chen MD at 17:27 EDT , Service support , Dr. Fito [facility] Operations: None Procedures: Stress test Summary of Care Provided: The patient is a 82 year old M with multiple medical problems including coronary artery disease with history of CABG ?5 vessels who presented to the emergency department at [facility] on 10/14/2017 complaining of tightening in his chest associated with shortness of breath. EKG showed normal sinus rhythm with frequent premature ventricular complexes and a left anterior hemiblock. There were no significant ST or T-wave changes to indicate ischemia. Troponin was less than 0.015. Chest x-ray revealed no acute findings. He was admitted to a monitored bed on PCU and serial cardiac enzymes were ordered and were negative. Consultation was obtained with Dr. Alcala who recommended a pharmacologic stress test. The stress test revealed no significant ischemia and the gated ejection fraction was 68%. Dr. Alcala recommended continuing medical therapy. He had no significant dysrhythmia during the course of his hospital admission. He was discharged home and instructed to follow-up with Dr. Tello in 1-2 weeks. Discharge Activity: Return to Normal Activity Call your doctor if you observe: Fever of 101 or Higher, Shortness of breath, Dizziness, Fainting spells, Chest pain Home Medications: Medications to take at Discharge Aspirin [Aspirin, Baby] 81 mg PO DAILY@0800 06/23/13 Metoprolol(XL)Succ [Toprol Xl (Beta Luis Felipe)] 25 mg PO DAILY 06/23/13 Cetirizine HCl [Zyrtec] 10 mg PO DAILY 03/25/15 Finasteride [Proscar] 5 mg PO DAILY 03/25/15 Folic Acid/Vit Bcomp,C [B-Complex with Vit C Caplet] 400 mcg PO DAILY 03/25/15 Furosemide [Lasix] 40 mg PO DAILY 03/25/15 Isosorbide Mononitrate [Isosorbide Mononitrate ER] 60 mg PO DAILY 03/25/15 Multivit-Min/FA/Lycopen/Lutein [Centrum Silver Tablet] 1 ea PO DAILY 03/25/15 Nitroglycerin [Nitrostat] 0.4 mg SUBLINGUAL Q5M PRN 03/25/15 Oxybutynin Chloride [Ditropan Xl] 10 mg PO DAILY 03/25/15 atorvastatin 40 mg tablet 40 mg PO QHS tab 05/08/17 ergocalciferol (vitamin D2) 50,000 unit capsule 50,000 unit PO QMONTH 05/08/17 folic acid 400 mcg tablet 400 mcg PO QDAY 05/08/17 lubiprostone 24 mcg capsule 24 mcg PO BID cap 05/08/17 magnesium oxide 400 mg tablet 400 mg PO QDAY tab 05/08/17 pantoprazole 20 mg tablet,delayed release See Label Instructions PO QDAY 05/08/17 hydrocodone 5 mg-acetaminophen 325 mg tablet 1 tab PO Q6H PRN 06/05/17 warfarin 5 mg tablet 5 mg PO .COMPLEX tab 06/05/17 Primary Care Physician: Ashvin Tello Chi, MD [Primary Care Provider] - Please follow up with your Primary Care Physician in: 1-2 weeks Disposition: Home Minutes spent on discharge:: 25 Patient Condition:: Good Medical Necessity - Tobacco Use Smoking Status: Former smoker Meaningful Use Info Meaningful Use Diagnoses (Choose all that apply): None applicable Code Visit OBSV E&M: 85990 Observation care discharge
--- NOTE | 2017-10-21 10:32 | DS.PCM_ITS ---
Discharge Date and Diagnosis Date of Admission: 10/14/17 Date of Discharge: 10/15/17 - Primary Discharge Diagnosis Chest pain - Secondary Discharge Diagnosis Chronic Problems (Last Reviewed 10/14/17 @ 19:52 by Bobo Connell MD) Foraminal stenosis of lumbar region (Chronic) History of left heart catheterization (Chronic) Prior to CABG 09/12/2000 @ [facility]; 05/01/[address] Yancey @ [facility]; 08/27/2012 @ [facility] per Dr. 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 Electronically Signed: Andrew Chen MD at 17:27 EDT , Service support , Dr. Fito [facility] Operations: None Procedures: Stress test Summary of Care Provided: The patient is a 82 year old M with multiple medical problems including coronary artery disease with history of CABG ?5 vessels who presented to the emergency department at [facility] on 10/14/2017 complaining of tightening in his chest associated with shortness of breath. EKG showed normal sinus rhythm with frequent premature ventricular complexes and a left anterior hemiblock. There were no significant ST or T-wave changes to indicate ischemia. Troponin was less than 0.015. Chest x-ray revealed no acute findings. He was admitted to a monitored bed on PCU and serial cardiac enzymes were ordered and were negative. Consultation was obtained with Dr. Alcala who recommended a pharmacologic stress test. The stress test revealed no significant ischemia and the gated ejection fraction was 68%. Dr. Alcala recommended continuing medical therapy. He had no significant dysrhythmia during the course of his hospital admission. He was discharged home and instructed to follow-up with Dr. Tello in 1-2 weeks. Discharge Activity: Return to Normal Activity Call your doctor if you observe: Fever of 101 or Higher, Shortness of breath, Dizziness, Fainting spells, Chest pain Home Medications: Medications to take at Discharge Aspirin [Aspirin, Baby] 81 mg PO DAILY@0800 06/23/13 Metoprolol(XL)Succ [Toprol Xl (Beta Luis Felipe)] 25 mg PO DAILY 06/23/13 Cetirizine HCl [Zyrtec] 10 mg PO DAILY 03/25/15 Finasteride [Proscar] 5 mg PO DAILY 03/25/15 Folic Acid/Vit Bcomp,C [B-Complex with Vit C Caplet] 400 mcg PO DAILY 03/25/15 Furosemide [Lasix] 40 mg PO DAILY 03/25/15 Isosorbide Mononitrate [Isosorbide Mononitrate ER] 60 mg PO DAILY 03/25/15 Multivit-Min/FA/Lycopen/Lutein [Centrum Silver Tablet] 1 ea PO DAILY 03/25/15 Nitroglycerin [Nitrostat] 0.4 mg SUBLINGUAL Q5M PRN 03/25/15 Oxybutynin Chloride [Ditropan Xl] 10 mg PO DAILY 03/25/15 atorvastatin 40 mg tablet 40 mg PO QHS tab 05/08/17 ergocalciferol (vitamin D2) 50,000 unit capsule 50,000 unit PO QMONTH 05/08/17 folic acid 400 mcg tablet 400 mcg PO QDAY 05/08/17 lubiprostone 24 mcg capsule 24 mcg PO BID cap 05/08/17 magnesium oxide 400 mg tablet 400 mg PO QDAY tab 05/08/17 pantoprazole 20 mg tablet,delayed release See Label Instructions PO QDAY hydrocodone 5 mg-acetaminophen 325 mg tablet 1 tab PO Q6H PRN 06/05/17 warfarin 5 mg tablet 5 mg PO .COMPLEX tab 06/05/17 Primary Care Physician: Ashvin Tello Chi, MD [Primary Care Provider] - Please follow up with your Primary Care Physician in: 1-2 weeks Disposition: Home Minutes spent on discharge:: 25 Patient Condition:: Good Medical Necessity - Tobacco Use Smoking Status: Former smoker Meaningful Use Info Meaningful Use Diagnoses (Choose all that apply): None applicable Code Visit OBSV E&M: 76888 Observation care discharge
== END 2017-10-15 14:42 | disposition home or self-care (01) ==
LOC: ED 17:15 → PCU 19:51
PROVIDERS: Internal Medicine Cardiovascular Disease; Admitting Provider Hospitalist; Emergency Provider Emergency Medicine; Family Provider Family Medicine Geriatric Medicine; PCP Family Medicine Geriatric Medicine; Visit Provider Internal Medicine
DX: R07.89 Other chest pain (principal); I25.10 Atherosclerotic heart disease of native coronary artery without angina pectoris; I27.20 Pulmonary hypertension, unspecified; E78.5 Hyperlipidemia, unspecified; Z86.73 Personal history of transient ischemic attack (TIA), and cerebral infarction without residual deficits; Z86.711 Personal history of pulmonary embolism; I11.0 Hypertensive heart disease with heart failure; I50.22 Chronic systolic (congestive) heart failure; Z87.891 Personal history of nicotine dependence; M79.89 Other specified soft tissue disorders; Z95.1 Presence of aortocoronary bypass graft; Z79.82 Long term (current) use of aspirin; Z79.899 Other long term (current) drug therapy; Z79.01 Long term (current) use of anticoagulants; I44.4 Left anterior fascicular block
CPT/HCPCS: 36415; 71045; 78452; 80048; 84484; 85025; 85610; 85730; 93005; 93017; 97162; 97165; 97802; 99218; 99285; A9500; J7030; A4216; G0378; J2785

== ENCOUNTER → 2017-12-18 16:26 | Outpatient (CLI) | payer MEDICARE, SELFPAY ==
[2017-12-18 18:27] LABS: M R Staph aureus DNA By PCR Negative (Negative); Probe Check PASS; Staph aureus DNA By PCR NEGATIVE (Negative)
== END ==
PROVIDERS: Family Provider Family Medicine Geriatric Medicine; PCP Family Medicine Geriatric Medicine; Visit Provider Family Medicine Geriatric Medicine
DX: I10 Essential (primary) hypertension (principal); E55.9 Vitamin D deficiency, unspecified; L03.119 Cellulitis of unspecified part of limb; B95.62 Methicillin resistant Staphylococcus aureus infection as the cause of diseases classified elsewhere
CPT/HCPCS: 87070; 87205; 87640

== ENCOUNTER 2018-01-09 10:30 | Outpatient (RCR) | payer MEDICARE, SELFPAY ==
[2018-01-02 09:43] VITALS: BP 132/73; PULSE 68; RESP 18; TEMP 36.6; BMI 34.4
--- NOTE | 2018-01-02 11:52 | PCM.WC.HP ---
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 Monet [facility] (2) Congestive heart failure Status: Chronic Current Visit: Yes Code(s): I50.9 - Heart failure, unspecified Comment: Systolic dysfunction (3) Right pulmonary embolus Status: Chronic Current Visit: No Code(s): I26.99 - Other pulmonary embolism without acute cor pulmonale (4) 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 Status: Chronic Current Visit: Yes Code(s): I83.029 - Varicose veins of left lower extremity with ulcer of unspecified site History of Present Illness Chief Complaint: Nonhealing wound of left lower leg History of Wound: 82-year-old black male who comes to the wound center referred by Dr. Mcgovern for an quarter size open area on the medial aspect of the left lower ankle. Cobble stone type textured skin around the area also. Patient has history of quadruple bypass and use most of the veins from his left lower leg and an artery from his left forearm. Garcia states his left leg is always swollen and does not understand why. Patient has history of the same happenings pretty regularly every year or so. Last visit was in June 2016. Vision was cultured by Dr. Mcgovern for no MRSA. The open area is very superficial about the size of a quarter and should heal well it was blistered and now open. Past Medical History Past Medical History: Chronic Problems (Last Reviewed 10/14/17 @ 19:52 by Bobo Connell MD) Foraminal stenosis of lumbar region (Chronic) History of left heart catheterization (Chronic) Prior to CABG 09/12/2000 @ [facility]; 05/01/[address] Yancey @ [facility]; 08/27/2012 @ [facility] per Dr. 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 Allergies/Adverse Reactions: Allergies diazepam [From Valium] Allergy (Intermediate, Verified 12/05/17 14:57) Other HALLUCINATIONS morphine Allergy (Intermediate, Verified 12/05/17 14:57) Other TWITCHES Home Medications: Ambulatory Orders Medication Instructions Recorded Aspirin [Aspirin, Baby] 81 mg PO DAILY@0800 06/23/13 Metoprolol(XL)Succ [Toprol Xl 25 mg PO DAILY 06/23/13 (Beta Luis Felipe)] Cetirizine HCl [Zyrtec] 10 mg PO DAILY 03/25/15 Finasteride [Proscar] 5 mg PO DAILY 03/25/15 Isosorbide Mononitrate [Isosorbide 60 mg PO DAILY 03/25/15 Mononitrate ER] Multivit-Min/FA/Lycopen/Lutein 1 ea PO DAILY 03/25/15 [Centrum Silver Tablet] Nitroglycerin [Nitrostat] 0.4 mg SUBLINGUAL Q5M PRN 03/25/15 atorvastatin 40 mg tablet 40 mg PO QHS tab 05/08/17 lubiprostone 24 mcg capsule 24 mcg PO BID cap 05/08/17 magnesium oxide 400 mg tablet 400 mg PO QDAY tab 05/08/17 pantoprazole 20 mg tablet,delayed See Rx Instructions PO QDAY 05/08/17 release warfarin 5 mg tablet 5 mg PO .COMPLEX tab 06/05/17 colchicine 0.6 mg tablet PO 30 Days #30 12/05/17 furosemide 40 mg tablet 40 mg PO .prn tab 12/05/17 tamsulosin 0.4 mg capsule PO 30 Days #30 12/05/17 - Family History Maternal Family History: Family History (Last Reviewed 12/05/17 @ 14:59 by Nicole Garber) Father No problems noted. Mother Cancer Brother Throat cancer Brother COPD (chronic obstructive pulmonary disease) Brother No problems noted. Sister COPD (chronic obstructive pulmonary disease) Heart disease Sister COPD (chronic obstructive pulmonary disease) No pertinent history Paternal Family History: Family History (Last Reviewed 12/05/17 @ 14:59 by Nicole Garber) Father No problems noted. Mother Cancer Brother Throat cancer Brother COPD (chronic obstructive pulmonary disease) Brother No problems noted. Sister COPD (chronic obstructive pulmonary disease) Heart disease Sister COPD (chronic obstructive pulmonary disease) No pertinent history Smoking Status: Never smoker Review of Systems Constitutional: Denies: Chills, Fever Eyes: Denies: Blurred vision, Drainage, Pain HEENT: Denies: Difficulty Hearing, Difficulty Swallowing, Sore Throat, Visual Changes Cardiovascular: Denies: Chest Pain, Palpitations, Syncope Respiratory: Denies: Cough, Shortness of Breath Gastrointestinal: Denies: Abdominal Pain, Nausea, Vomiting Genitourinary: Denies: Dysuria, Frequency Musculoskeletal: Denies: Joint Pain, Muscle pain Skin: Reports: Wounds - Peripheral vascular ulcers left lower medial ankle. Denies: Jaundice, Rash Neurological: Denies: Balance problems, Change in Speech, Difficulty swallowing, Focal weakness Psychiatric: Denies: Anxiety, Depression Endocrine: Denies: Change in Body Habitus Hematologic/ Lymphatic: Denies: Adenopathy - Physical Exam Vital Signs Temp Pulse Resp BP 98 F 68 18 132/73 H 01/02/18 09:43 01/02/18 09:43 01/02/18 09:43 01/02/18 09:43 General: Oriented x3, Cooperative, Well developed HEENT: Atraumatic, PERRLA Oral: Moist Mucosa Neck: Supple, No JVD Lungs: Clear to auscultation, Normal air movement Cardiovascular: Regular rate, Regular Rhythm Abdomen: Bowel Sounds Present, Soft, Non Tender, No Hepato-splenomegaly Extremities: No clubbing, Edema, - - Peripheral vascular Wound Measurements and Assessment WC - Nurse 1 - General Ulcer Measurement Start: 01/02/18 09:28 Freq: Status: Active Protocol: Activity Type Activity Date Activity User E-Sign Co-Sign Detail Recorded Client Recorded Date Recorded By Document 01/02/18 09:43 CS [id number] 01/02/18 09:55 CS 01/02/18 09:43 Wound Center Nurse 1 [Ulcer Assessment] #3 LEFT MEDIAL LE -Combined with other wound No -Current Size (cm) - Length 0.1 -Current Size (cm) - Width 0.1 -Current Size (cm) - Depth 0.1 -Total Square Cm 0.01 -Date of Last Picture (Recall this 01/02/18 field) -Photo Taken Yes -Epithelialization Large 67-100% -Tunneling No -Undermining/Tunneling No -Circular Undermining No [Edema Assessment] -Lower Limb Edema Present Yes -Right Calf (cm) 39 -Right Ankle (cm) 25 -Left Calf (cm) 39 -Left Ankle (cm) 25 WC - Nurse 2 - General Ulcer CM Notes Start: 01/02/18 09:28 Freq: Status: Active Protocol: Activity Type Activity Date Activity User E-Sign Co-Sign Detail Recorded Client Recorded Date Recorded By Document 01/02/18 10:22 MW [id number] 01/02/18 10:27 MW 01/02/18 10:22 Wound Center Nurse 2 [Procedure/Treatment] #3 LEFT MEDIAL LE -Time 10:22 -Correct Patient Yes -Correct Side, Site, Position Yes -Correct Procedure Yes -Procedure Performed Yes -Type of Procedure Debridement -Clinical Debridement Subcutaneous -Post Debridement Size (cm) - Length 2.8 -Post Debridement Size (cm) - Width 2.5 -Post Debridement Size (cm) - Depth 0.1 -Total Square Cm 7.00 -Wound/Ulcer Outcome Not Healed -Ulcer Cleansing Rinsed/ Irrigated with Saline -Foul Odor after Cleansing No -Bioengineered Tissue No -Bleeding Controlled with Pressure -Treatment Response Procedure Tolerated Well [See Physician Procedure note for Specifics] Pain Scale: 0-10 Numeric [Pain] -Is Patient Pain Free? Yes Musculoskeletal: No Tenderness to Palpation of Joints or Extremities Lymphatic: No Cervical, Supraclavicular, or Inguinal Adenopathy Neurological: Cranial nerves II-XII grossly intact, Neuro grossly intact Psych/Mental Status: Normal Affect, Appropriate Debridement Note Post-Debridement Measurements/Treatment WC - Nurse 2 - General Ulcer CM Notes Start: 01/02/18 09:28 Freq: Status: Active Protocol: Activity Type Activity Date Activity User E-Sign Co-Sign Detail Recorded Client Recorded Date Recorded By Document 01/02/18 10:22 MW [id number] 01/02/18 10:27 MW 01/02/18 10:22 Wound Center Nurse 2 #3 LEFT MEDIAL LE -Time 10:22 -Correct Patient Yes -Correct Side, Site, Position Yes -Correct Procedure Yes -Procedure Performed Yes -Type of Procedure Debridement -Clinical Debridement Subcutaneous -Post Debridement Size (cm) - Length 2.8 -Post Debridement Size (cm) - Width 2.5 -Post Debridement Size (cm) - Depth 0.1 -Total Square Cm 7.00 -Wound/Ulcer Outcome Not Healed -Ulcer Cleansing Rinsed/ Irrigated with Saline -Foul Odor after Cleansing No -Bioengineered Tissue No -Bleeding Controlled with Pressure -Treatment Response Procedure Tolerated Well Pain Scale: 0-10 Numeric Is Patient Pain Free? Yes Wound debrided: Left lower medial ankle peripheral vascular ulcer Type of Debridement: Selective debridement Anesthesia Used: 5% Lidocaine Gel Depth: Down to and including healthy tissue Percentage of wound debrided: 100 Instrument Used: 3mm curette Tissue Removed: Fibrin and some devitalized tissue Severity: Limited To Skin Breakdown Amount of bleeding with debridement: Mild Bleeding Controlled with: Compression and gauze Patient tolerated procedure well Assessment/Plan Active Problems (Last Reviewed 10/14/17 @ 19:52 by Bobo Connell MD) Aortocoronary bypass status (Chronic) CABG 09/12/2000 X 5 vessels: CASTILLO to LAD,left radial artery to RCA, SVG to first snd second DX branches of the LAD and SVG to the lateral CX which 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 Apply Aquacel silver to the area moistened Adaptic gauze and tape. Layer Tubigrip to the left leg and a regular stocking to the right. Follow up in 1 week
--- NOTE | 2018-01-02 11:56 | HP.PCM_ITS ---
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 Mcgovern for an quarter size open area on the medial aspect of the left lower ankle. Cobble stone type textured skin around the area also. Patient has history of quadruple bypass and use most of the veins from his left lower leg and an artery from his left forearm. Garcia states his left leg is always swollen and does not understand why. Patient has history of the same happenings pretty regularly every year or so. Last visit was in June 2016. Vision was cultured by Dr. Mcgovern for no MRSA. The open area is very superficial about the size of a quarter and should heal well it was blistered and now open. Past Medical History Past Medical History: Chronic Problems (Last Reviewed 10/14/17 @ 19:52 by Bobo Connell MD) Foraminal stenosis of lumbar region (Chronic) History of left heart catheterization (Chronic) Prior to CABG 09/12/2000 @ [facility]; 05/01/[address] Yancey @ [facility]; 08/27/2012 @ [facility] per Dr. Alcala Atherosclerotic heart disease of [place] coronary artery with other forms of angina pectoris (Chronic) CASTILLO graft to LAD, radial art graft to RCA, saphenous vein graft to CFX, saphenous vein graft to OM 1, OM 2 OTCAm 06/21/02 of distal & proximal RCA, PTCA with [place] to proximal LAD 07/2012 Dizziness and giddiness (Chronic) Precordial chest pain (Chronic) Aortocoronary bypass status (Chronic) CABG 09/12/2000 X 5 vessels: CASTILLO to LAD,left radial artery to RCA, SVG to first snd second DX branches of the LAD and SVG to the lateral CX which 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 Allergies/Adverse Reactions: Allergies diazepam [From Valium] Allergy (Intermediate, Verified 12/05/17 14:57) Other HALLUCINATIONS morphine Allergy (Intermediate, Verified 12/05/17 14:57) Other TWITCHES Home Medications: Ambulatory Orders Medication Instructions Recorded Aspirin [Aspirin, Baby] 81 mg PO DAILY@0800 06/23/13 Metoprolol(XL)Succ [Toprol Xl 25 mg PO DAILY 06/23/13 (Beta Luis Felipe)] Cetirizine HCl [Zyrtec] 10 mg PO DAILY 03/25/15 Finasteride [Proscar] 5 mg PO DAILY 03/25/15 Isosorbide Mononitrate [Isosorbide 60 mg PO DAILY 03/25/15 Mononitrate ER] Multivit-Min/FA/Lycopen/Lutein 1 ea PO DAILY 03/25/15 [Centrum Silver Tablet] Nitroglycerin [Nitrostat] 0.4 mg SUBLINGUAL Q5M PRN 03/25/15 atorvastatin 40 mg tablet 40 mg PO QHS tab 05/08/17 lubiprostone 24 mcg capsule 24 mcg PO BID cap 05/08/17 magnesium oxide 400 mg tablet 400 mg PO QDAY tab 05/08/17 pantoprazole 20 mg tablet,delayed See Rx Instructions PO QDAY 05/08/17 release warfarin 5 mg tablet 5 mg PO .COMPLEX tab 06/05/17 colchicine 0.6 mg tablet PO 30 Days #30 12/05/17 furosemide 40 mg tablet 40 mg PO .prn tab 12/05/17 tamsulosin 0.4 mg capsule PO 30 Days #30 12/05/17 - Family History Maternal Family History: Family History (Last Reviewed 12/05/17 @ 14:59 by Nicole Garber) Father No problems noted. Mother Cancer Brother Throat cancer Brother COPD (chronic obstructive pulmonary disease) Brother No problems noted. Sister COPD (chronic obstructive pulmonary disease) Heart disease Sister COPD (chronic obstructive pulmonary disease) No pertinent history Paternal Family History: Family History (Last Reviewed 12/05/17 @ 14:59 by Nicole Garber) Father No problems noted. Mother Cancer Brother Throat cancer Brother COPD (chronic obstructive pulmonary disease) Brother No problems noted. Sister COPD (chronic obstructive pulmonary disease) Heart disease Sister COPD (chronic obstructive pulmonary disease) No pertinent history Smoking Status: Never smoker Review of Systems Constitutional: Denies: Chills, Fever Eyes: Denies: Blurred vision, Drainage, Pain HEENT: Denies: Difficulty Hearing, Difficulty Swallowing, Sore Throat, Visual Changes Cardiovascular: Denies: Chest Pain, Palpitations, Syncope Respiratory: Denies: Cough, Shortness of Breath Gastrointestinal: Denies: Abdominal Pain, Nausea, Vomiting Genitourinary: Denies: Dysuria, Frequency Musculoskeletal: Denies: Joint Pain, Muscle pain Skin: Reports: Wounds - Peripheral vascular ulcers left lower medial ankle. Denies: Jaundice, Rash Neurological: Denies: Balance problems, Change in Speech, Difficulty swallowing, Focal weakness Psychiatric: Denies: Anxiety, Depression Endocrine: Denies: Change in Body Habitus Hematologic/ Lymphatic: Denies: Adenopathy - Physical Exam Vital Signs Temp Pulse Resp BP 98 F 68 18 132/73 H 01/02/18 09:43 01/02/18 09:43 01/02/18 09:43 01/02/18 09:43 General: Oriented x3, Cooperative, Well developed HEENT: Atraumatic, PERRLA Oral: Moist Mucosa Neck: Supple, No JVD Lungs: Clear to auscultation, Normal air movement Cardiovascular: Regular rate, Regular Rhythm Abdomen: Bowel Sounds Present, Soft, Non Tender, No Hepato-splenomegaly Extremities: No clubbing, Edema, - - Peripheral vascular Wound Measurements and Assessment WC - Nurse 1 - General Ulcer Measurement Start: 01/02/18 09:28 Freq: Status: Active Protocol: Activity Type Activity Date Activity User E-Sign Co-Sign Detail Recorded Client Recorded Date Recorded By Document 01/02/18 09:43 CS [id number] 01/02/18 09:55 CS 01/02/18 09:43 Wound Center Nurse 1 [Ulcer Assessment] #3 LEFT MEDIAL LE -Combined with other wound No -Current Size (cm) - Length 0.1 -Current Size (cm) - Width 0.1 -Current Size (cm) - Depth 0.1 -Total Square Cm 0.01 -Date of Last Picture (Recall this 01/02/18 field) -Photo Taken Yes -Epithelialization Large 67-100% -Tunneling No -Undermining/Tunneling No -Circular Undermining No [Edema Assessment] -Lower Limb Edema Present Yes -Right Calf (cm) 39 -Right Ankle (cm) 25 -Left Calf (cm) 39 -Left Ankle (cm) 25 WC - Nurse 2 - General Ulcer CM Notes Start: 01/02/18 09:28 Freq: Status: Active Protocol: Activity Type Activity Date Activity User E-Sign Co-Sign Detail Recorded Client Recorded Date Recorded By Document 01/02/18 10:22 MW [id number] 01/02/18 10:27 MW 01/02/18 10:22 Wound Center Nurse 2 [Procedure/Treatment] #3 LEFT MEDIAL LE -Time 10:22 -Correct Patient Yes -Correct Side, Site, Position Yes -Correct Procedure Yes -Procedure Performed Yes -Type of Procedure Debridement -Clinical Debridement Subcutaneous -Post Debridement Size (cm) - Length 2.8 -Post Debridement Size (cm) - Width 2.5 -Post Debridement Size (cm) - Depth 0.1 -Total Square Cm 7.00 -Wound/Ulcer Outcome Not Healed -Ulcer Cleansing Rinsed/ Irrigated with Saline -Foul Odor after Cleansing No -Bioengineered Tissue No -Bleeding Controlled with Pressure -Treatment Response Procedure Tolerated Well [See Physician Procedure note for Specifics] Pain Scale: 0-10 Numeric [Pain] -Is Patient Pain Free? Yes Musculoskeletal: No Tenderness to Palpation of Joints or Extremities Lymphatic: No Cervical, Supraclavicular, or Inguinal Adenopathy Neurological: Cranial nerves II-XII grossly intact, Neuro grossly intact Psych/Mental Status: Normal Affect, Appropriate Debridement Note Post-Debridement Measurements/Treatment WC - Nurse 2 - General Ulcer CM Notes Start: 01/02/18 09:28 Freq: Status: Active Protocol: Activity Type Activity Date Activity User E-Sign Co-Sign Detail Recorded Client Recorded Date Recorded By Document 01/02/18 10:22 MW [id number] 01/02/18 10:27 MW 01/02/18 10:22 Wound Center Nurse 2 #3 LEFT MEDIAL LE -Time 10:22 -Correct Patient Yes -Correct Side, Site, Position Yes -Correct Procedure Yes -Procedure Performed Yes -Type of Procedure Debridement -Clinical Debridement Subcutaneous -Post Debridement Size (cm) - Length 2.8 -Post Debridement Size (cm) - Width 2.5 -Post Debridement Size (cm) - Depth 0.1 -Total Square Cm 7.00 -Wound/Ulcer Outcome Not Healed -Ulcer Cleansing Rinsed/ Irrigated with Saline -Foul Odor after Cleansing No -Bioengineered Tissue No -Bleeding Controlled with Pressure -Treatment Response Procedure Tolerated Well Pain Scale: 0-10 Numeric Is Patient Pain Free? Yes Wound debrided: Left lower medial ankle peripheral vascular ulcer Type of Debridement: Selective debridement Anesthesia Used: 5% Lidocaine Gel Depth: Down to and including healthy tissue Percentage of wound debrided: 100 Instrument Used: 3mm curette Tissue Removed: Fibrin and some devitalized tissue Severity: Limited To Skin Breakdown Amount of bleeding with debridement: Mild Bleeding Controlled with: Compression and gauze Patient tolerated procedure well Assessment/Plan Active Problems (Last Reviewed 10/14/17 @ 19:52 by Bobo Connell MD) Aortocoronary bypass status (Chronic) CABG 09/12/2000 X 5 vessels: CASTILLO to LAD,left radial artery to RCA, SVG to first snd second DX branches of the LAD and SVG to the lateral CX which 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 Apply Aquacel silver to the area moistened Adaptic gauze and tape. Layer Tubigrip to the left leg and a regular stocking to the right. Follow up in 1 week
[2018-01-09 10:35] VITALS: BP 153/74; PULSE 67; RESP 18; TEMP 36.6; BMI 34.4
--- NOTE | 2018-01-09 12:31 | PN.PCM_ITS ---
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 Mcgovern for an quarter size open area on the medial aspect of the left lower ankle. Cobble stone type textured skin around the area also. Patient has history of quadruple bypass and use most of the veins from his left lower leg and an artery from his left forearm. Garcia states his left leg is always swollen and does not understand why. Patient has history of the same happenings pretty regularly every year or so. Last visit was in June 2016. Vision was cultured by Dr. Mcgovern for no MRSA. The open area is very superficial about the size of a quarter and should heal well it was blistered and now open. Progress of Wound: Today the ulcer has healed and will be discharged from the wound center. Selective debridement to get all skin from around the edge was used but that was all. - Physical Exam Vital Signs Temp Pulse Resp BP 97.8 F 67 18 153/74 H 01/09/18 10:35 01/09/18 10:35 01/09/18 10:35 01/09/18 10:35 General: Oriented x3, Cooperative, Well developed HEENT: Atraumatic, PERRLA Oral: Moist Mucosa Neck: Supple, No JVD Lungs: Clear to auscultation, Normal air movement Cardiovascular: Regular rate, Regular Rhythm Abdomen: Bowel Sounds Present, Soft, Non Tender, No Hepato-splenomegaly Extremities: No clubbing, No edema, - - Right lower extremity medial side of leg Wound Measurements and Assessment WC - Nurse 1 - General Ulcer Measurement Start: 01/02/18 09:28 Freq: Status: Active Protocol: Activity Type Activity Date Activity User E-Sign Co-Sign Detail Recorded Client Recorded Date Recorded By Document 01/09/18 10:35 CS [id number] 01/09/18 10:36 CS 01/09/18 10:35 Wound Center Nurse 1 [Ulcer Assessment] #3 LEFT MEDIAL LE -Combined with other wound No -Current Size (cm) - Length 2.7 -Current Size (cm) - Width 2.6 -Current Size (cm) - Depth 0.1 -Total Square Cm 7.02 -Photo Taken No -Epithelialization Small 1-33% -Tunneling No -Undermining/Tunneling No -Circular Undermining No -Exudate Amt None Present (0 %) -Wound Margin Flat & Intact -Granulation Amt Large (67-100%) -Granulation Quality Hyper- granulation -Slough/Fibrin No -Necrosis Amt None Present (0 %) -Necrotic Tissue Type Eschar -Texture (Renata-wound Skin Appearance) No Abnormality Assessed -Moisture (Renata-wound Skin Appearance No Abnormality ) Assessed -Color (Renata-wound Skin Appearance) No Abnormality Assessed -Temperature (Renata-wound Skin No Abnormality Appearance) (Pt Warm) -Tenderness on Palpation (Renata-wound Yes Skin Appearance) -Ulcer Cleansing Rinsed/ Irrigated with Saline -Foul Odor after Cleansing No -Anesthetic Used 4% Lidocaine Solution [Edema Assessment] -Lower Limb Edema Present Yes -Left Calf (cm) 39.2 -Left Ankle (cm) 25 WC - Nurse 2 - General Ulcer CM Notes Start: 01/02/18 09:28 Freq: Status: Active Protocol: Activity Type Activity Date Activity User E-Sign Co-Sign Detail Recorded Client Recorded Date Recorded By Document 01/09/18 11:10 MW [id number] 01/09/18 11:13 MW 01/09/18 11:10 Wound Center Nurse 2 [Procedure/Treatment] #3 LEFT MEDIAL LE -Time 11:10 -Correct Patient Yes -Correct Side, Site, Position Yes -Correct Procedure Yes -Procedure Performed Yes -Type of Procedure Debridement -Clinical Debridement Selective -Post Debridement Size (cm) - Length 0 -Post Debridement Size (cm) - Width 0 -Post Debridement Size (cm) - Depth 0 -Total Square Cm 0 -Wound/Ulcer Outcome Healed- Epithelialized -Ulcer Cleansing Rinsed/ Irrigated with Saline -Foul Odor after Cleansing No -Bioengineered Tissue No -Bleeding Controlled with NA -Treatment Response Procedure Tolerated Well [See Physician Procedure note for Specifics] Pain Scale: 0-10 Numeric [Pain] -Is Patient Pain Free? Yes Musculoskeletal: No Tenderness to Palpation of Joints or Extremities Lymphatic: No Cervical, Supraclavicular, or Inguinal Adenopathy Neurological: Cranial nerves II-XII grossly intact, Neuro grossly intact Psych/Mental Status: Normal Affect, Appropriate Debridement Note Post-Debridement Measurements/Treatment WC - Nurse 2 - General Ulcer CM Notes Start: 01/02/18 09:28 Freq: Status: Active Protocol: Activity Type Activity Date Activity User E-Sign Co-Sign Detail Recorded Client Recorded Date Recorded By Document 01/02/18 10:22 MW [id number] 01/02/18 10:27 MW Document 01/09/18 11:10 MW [id number] 01/09/18 11:13 MW 01/02/18 01/09/18 10:22 11:10 Wound Center Nurse 2 #3 LEFT MEDIAL LE -Time 10:22 11:10 -Correct Patient Yes Yes -Correct Side, Site, Position Yes Yes -Correct Procedure Yes Yes -Procedure Performed Yes Yes -Type of Procedure Debridement Debridement -Clinical Debridement Subcutaneous Selective -Post Debridement Size (cm) - Length 2.8 0 -Post Debridement Size (cm) - Width 2.5 0 -Post Debridement Size (cm) - Depth 0.1 0 -Total Square Cm 7.00 0 -Wound/Ulcer Outcome Not Healed Healed- Epithelialized -Ulcer Cleansing Rinsed/ Rinsed/ Irrigated with Irrigated with Saline Saline -Foul Odor after Cleansing No No -Bioengineered Tissue No No -Bleeding Controlled with Pressure NA -Treatment Response Procedure Procedure Tolerated Well Tolerated Well Pain Scale: 0-10 Numeric Is Patient Pain Free? Yes Yes Wound debrided: Right lower extremity Type of Debridement: Selective debridement Anesthesia Used: 5% Lidocaine Gel Depth: Down to and including healthy tissue Percentage of wound debrided: 100 Instrument Used: 7mm curette, - Tissue Removed: Devitalized tissue Severity: Limited To Skin Breakdown Amount of bleeding with debridement: None Bleeding Controlled with: Pressure Assessment/Plan Active Problems (Last Reviewed 10/14/17 @ 19:52 by Bobo Connell MD) Aortocoronary bypass status (Chronic) CABG 09/12/2000 X 5 vessels: CASTILLO to LAD,left radial artery to RCA, SVG to first snd second DX branches of the LAD and SVG to the lateral CX which 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 Follow-up as needed
== END 2018-01-28 23:59 ==
LOC: WC 10:30
PROVIDERS: Family Provider Family Medicine Geriatric Medicine; PCP Family Medicine Geriatric Medicine; Visit Provider Nurse Practitioner
DX: I83.023 Varicose veins of left lower extremity with ulcer of ankle (principal); L97.321 Non-pressure chronic ulcer of left ankle limited to breakdown of skin; Z86.711 Personal history of pulmonary embolism; Z95.1 Presence of aortocoronary bypass graft; I25.10 Atherosclerotic heart disease of native coronary artery without angina pectoris; E78.5 Hyperlipidemia, unspecified; I11.0 Hypertensive heart disease with heart failure; Z79.899 Other long term (current) drug therapy; Z79.82 Long term (current) use of aspirin; Z79.01 Long term (current) use of anticoagulants; I50.22 Chronic systolic (congestive) heart failure
CPT/HCPCS: 11042; 99212; 99213; G0463

== ENCOUNTER → 2018-01-27 16:27 | Outpatient (CLI) | payer MEDICARE, SELFPAY ==
[2018-01-27 17:34] LABS: Absolute Lymphocyte Count 2.38 X10^3/ul (0.83-4.51); Absolute Neutrophil Count 3.2 X10^3/uL (2.0-7.7); Basophil# 0.02 X10^3/uL; Basophil% 0.3 % (0-1); Eosinophil# 0.08 X10^3/uL; Eosinophils% 1.3 % (0-5); Hematocrit 39.1 % (40-54); Hemoglobin 12.4 g/dl (13.0-16.5); Lymphocyte # 2.38 X10^3/ul (4.0); Mean Corp Hgb Conc 31.7 g/gl (32-36); Mean Corpuscular Volume 94.4 fL (80-94); Mean Platelet Vol. 10.6 fl (6.2-12.0); Monocyte% 6.6 % (0-10); Neutrophil # 3.21 X10^3/uL (2.7-7.7); Neutrophil % 52.6 % (47-70); Platelet Count 201 K/mm3 (150-450); RBC Distribution Width CV 14.8 % (11.6-14.6); RBC Distribution Width SD 51.3 fl (35.1-43.9); Red Blood Count 4.14 M/mm3 (4.6-6.2); White Blood Count 6.1 K/mm3 (4.4-11.0)
[2018-01-27 17:35] LABS: POSITIVE COUNT NO; POSITIVE DIFFERENTIAL NO; POSITIVE MORPHOLOGY NO
[2018-01-27 17:53] LABS: Anion Gap 6 (5-15); BUN 14 mg/dL (7-18); BUN/Creat Ratio 11.7 RATIO (10-20); CPK Total, Creatine Kinase 895 U/L (39-308); Calcium,Total 9.4 mg/dL (8.5-10.1); Chloride 107 mmol/L (98-107); EST Glomerular Filtration Rate 62 mL/min (>60); Est Glom Filt Rate - Afr Amer 75 mL/min (>60); Glucose 92 mg/dL (74-106); Potassium 4.5 mmol/L (3.5-5.1); Sodium Level 141 mmol/L (136-145)
[2018-01-27 18:03] LABS: D-Dimer Quantitative (DVT/PE) 0.44 FEU/ug/m (0.27-0.49)
[2018-01-28 11:49] LABS: BNP,B-Type NATRIURETIC PEPTIDE 69.7 pg/mL (0-100)
[2018-01-29 10:08] LABS: Myoglobin, Serum 583 ng/mL (28-72)
== END ==
PROVIDERS: Family Provider Family Medicine Geriatric Medicine; PCP Family Medicine Geriatric Medicine; Visit Provider Family Medicine Geriatric Medicine
DX: R06.02 Shortness of breath (principal)
CPT/HCPCS: 36415; 80048; 82550; 83874; 83880; 84484; 85025; 85379

== ENCOUNTER → 2018-01-28 11:14 | Outpatient (CLI) | payer MEDICARE, SELFPAY ==
[2018-01-28 12:53] LABS: CPK Total, Creatine Kinase 947 U/L (39-308)
[2018-01-29 10:08] LABS: Myoglobin, Serum 508 ng/mL (28-72)
== END ==
PROVIDERS: Family Provider Family Medicine Geriatric Medicine; PCP Family Medicine Geriatric Medicine; Visit Provider Family Medicine Geriatric Medicine
DX: R06.02 Shortness of breath (principal)
CPT/HCPCS: 36415; 82550; 83874; 84484

== ENCOUNTER → 2018-02-05 15:07 | Outpatient (CLI) | payer MEDICARE, SELFPAY ==
[2018-02-05 17:39] LABS: CPK Total, Creatine Kinase 892 U/L (39-308)
== END ==
PROVIDERS: Family Provider Family Medicine Geriatric Medicine; PCP Family Medicine Geriatric Medicine; Visit Provider Family Medicine Geriatric Medicine
DX: R06.89 Other abnormalities of breathing (principal)
CPT/HCPCS: 36415; 82550

== ENCOUNTER → 2018-03-17 17:54 | Outpatient (CLI) | payer MEDICARE, SELFPAY ==
--- NOTE | 2018-03-17 18:08 | RAD_ITS ---
STUDY: X-RAY CHEST REASON FOR EXAM: Male, 82 years old. Cough. History of open heart surgery. TECHNIQUE: PA and lateral views of the chest. COMPARISON: October 14, 2017. FINDINGS: The lungs are clear and expanded. There is no demonstrated pleural abnormality. Sternal cerclage wires are present from a prior sternotomy. Normal mediastinum and donnie. Normal visualized pulmonary arteries. There is atherosclerotic calcification of the aortic arch with tortuosity. The thoracic spine is obscured by the mediastinum. There is degenerative osteoarthritis of the bilateral shoulders. There is no demonstrated abnormality of the visualized soft tissue structures of the upper abdomen. RAD/Chest PA and Lateral IMPRESSION: Evidence of median sternotomy. There is no acute cardiopulmonary disease. Electronically Signed: Taurus York DO at 18:16 EST Tel [phone], Service support ,
--- OUTSIDE RECORDS SUMMARY | 2018-06-19 06:03 | XMS RPT_ITS ---
:1935 Author Organization OHIP Support Name Relationship Address Phone THEODORE SINGH Unavailable [address] + [place] [address] SINGH, BRYCE/BRIAN Unavailable Unavailable + [place] [address] R Unavailable Unavailable Unavailable SINGH, THEODORE Unavailable [address] + [place] [address] SINGH, BRYCE/BRIAN Unavailable Unavailable + [place] [address] R Unavailable Unavailable Unavailable SINGH, THEODORE Unavailable [address] + [place] [address] SINGH, BRYCE/BRIAN Unavailable . + [place] [address] R Unavailable Unavailable Unavailable SINGH, THEODORE Unavailable [address] + [place] [address] SINGH, BRYCE/BRIAN Unavailable . + [place] [address] R Unavailable Unavailable Unavailable SINGH, THEODORE Unavailable [address] + [place] [address] SINGH, BRYCE/BRIAN Unavailable . + [place] [address] R Unavailable Unavailable Unavailable SINGH, THEODORE Unavailable [address] + [place] [address] SINGH, BRYCE/BRIAN Unavailable . + [place] [address] R Unavailable Unavailable Unavailable SINGH, THEODORE Unavailable [address] + [place] [address] SINGH, BRYCE/BRIAN Unavailable . + [place] [address] R Unavailable Unavailable Unavailable SINGH, THEODORE Unavailable [address] + [place] [address] SINGH, BRYCE/BRIAN Unavailable . + [place] [address] R Unavailable Unavailable Unavailable SINGH, THEODORE Unavailable [address] + [place] [address] SINGH, BRYCE/BRIAN Unavailable . + [place] [address] R Unavailable Unavailable Unavailable SINGH, THEODORE Unavailable [address] + [place] [address] SINGH, BRYCE/BRIAN Unavailable Unavailable + [place] [address] R Unavailable Unavailable Unavailable SINGH, THEODORE Unavailable [address] + [place] [address] SINGH, BRYCE/BRIAN Unavailable Unavailable + [place] [address] R Unavailable Unavailable Unavailable SINGH, THEODORE Unavailable [address] + [place] [address] R Unavailable Unavailable Unavailable SINGH, THEODORE Unavailable [address] + [place] [address] SINGH, BRYCE/BRIAN Unavailable Unavailable + [place] [address] R Unavailable Unavailable Unavailable SINGH, THEODORE Unavailable [address] + [place] [address] SINGH, BRYCE/BRIAN Unavailable Unavailable + [place] [address] R Unavailable Unavailable Unavailable SINGH, THEODORE Unavailable [address] + [place] [address] R Unavailable Unavailable Unavailable SINGH, THEODORE Unavailable [address] + [place] [address] R Unavailable Unavailable Unavailable SINGH, THEODORE Unavailable [address] + [place] [address] R Unavailable Unavailable Unavailable R Unavailable Unavailable Unavailable SINGH, THEODORE Unavailable [address] + [place] [address] R Unavailable Unavailable Unavailable CARLOS JUSTICE Unavailable [address] + [place] [address] Care Team Providers Name Role Phone Ashvin Tello Chi Attending Unavailable Omer, Ashvin Chi Primary Care Unavailable Fito Alcala Attending Unavailable Bobo Connell Admitting Unavailable Sementi, Irma Attending Unavailable Omer, Ashvin Chi Primary Care Unavailable Fredrick, Fito Consulting Unavailable Semenlarry, Irma Consulting Unavailable Bobo Connell Admitting Unavailable Agyeponbibi Bobo Attending Unavailable Omer, Ashvin Chi Primary Care Unavailable Agyeponbibi Bobo Consulting Unavailable Omer, Ashvin Chi Primary Care Unavailable Agyepong, Bobo Admitting Unavailable Fredrick, [place] Consulting Unavailable Sementi, Irma Attending Unavailable Omer, Ashvin Chi Attending Unavailable Omer, Ashvin Chi Referring Unavailable Omer, Ashvin Chi Primary Care Unavailable Omer, Ashvin Chi Attending Unavailable Omer, Ashvin Chi Primary Care Unavailable Omer, Ashvin Chi Attending Unavailable Omer, Ashvin Chi Primary Care Unavailable Fredrick, Fito Attending Unavailable Omer, Ashvin Chi Referring Unavailable Omer, Ashvin Chi Primary Care Unavailable Omer, Ashvin Chi Attending Unavailable Omer, Ashvin Chi Referring Unavailable Omer, Ashvin Chi Primary Care Unavailable Omer, Ashvin Chi Attending Unavailable Omer, Ashvin Chi Referring Unavailable Omer, Ashvin Chi Primary Care Unavailable Marianna Mckeon LENS CUTTER-C Attending Unavailable Omer, Ashvin Chi Primary Care Unavailable Omer, Ashvin Chi Attending Unavailable Omer, Ashvin Chi Primary Care Unavailable Omer, Ahsvin Chi Attending Unavailable Omer, Ashvin Chi Primary Care Unavailable Marianna Mckeon LENS CUTTER-C Attending Unavailable Omer, Ashvin Chi Primary Care Unavailable Omer, Ashvin Chi Attending Unavailable Omer, Ashvin Chi Primary Care Unavailable Leana Wade Attending Unavailable Omer, Ashvin Chi Referring Unavailable Fredrick, Fito Attending Unavailable PROBLEMS PROBLEMS DATE TYPE CONDITION / CODE ATTENDING STATUS SOURCE 04/09/2018 Unknown R68.83 - Chills Omer, Ashvin Chi Active [place] (without fever) / Community R68.83(ICD-10) Hospital Repository 03/17/2018 Unknown J40 - Bronchitis, not Omer, Ashvin Chi Active [place] specified as acute or Community chronic / J40(ICD-10) Hospital Repository 03/17/2018 Unknown R05 - Cough / Omer, Ashvin Chi Active [place] R05(ICD-10) Community Hospital Repository 12/24/2017 Unknown I10 - Essential Omer, Ashvin Chi Active [place] (primary) hypertension Community / I10(ICD-10) Hospital Repository 11/11/2017 Unknown R07.9 - Chest pain, Fredrick, [place] Active [place] unspecified / Community R07.9(ICD-10) Hospital Repository 11/12/2017 Unknown R94.31 - Abnormal Fredrick, Fito Active [place] electrocardiogram Community [ECG] [EKG] / Hospital R94.31(ICD-10) Repository 06/05/2017 Unknown Z95.1 - Presence of Fredrick, [place] Active [place] aortocoronary bypass Community graft / Z95.1(ICD-10) Hospital Repository 06/05/2017 Unknown E78.5 - Fredrick, [place] Active [place] Hyperlipidemia, Community unspecified / Hospital E78.5(ICD-10) Repository 06/05/2017 Unknown I26.99 - Other Fredrick, [place] Active [place] pulmonary embolism Community without acute cor Hospital pulmonale / Repository I26.99(ICD-10) PROCEDURES PROCEDURES No Procedure Records FoundRESULTS RESULTS Observed: 04/09/2018 Status: F Source: [place] RESPIRATORY PANEL 6:55 PM [facility] MOLECULAR REPOSITORY RP PANEL ADENOVIRUS Not Detected HUMAN METAPHNEUMO Not Detected INFLUENZA A Not Detected INFLUENZA A (SUBTYPE H1) Not Detected INFLUENZA A (SUBTYPE H3) Not Detected INFLUENZA B Not Detected PARAINFLUENZA 1 Not Detected PARAINFLUENZA 2 Not Detected PARAINFLUENZA 3 Not Detected PARAINFLUENZA 4 Not Detected RHINOVIRUS Not Detected RSV A Not Detected RSV B Not Detected NAAT METHOD Testing was performed using nucleic acid amplification Performed By: #### M100.638 #### [facility] [address], [place], [id number] Observed: 03/17/2018 Status: F Source: [place] RESPIRATORY PANEL 6:30 PM [facility] MOLECULAR REPOSITORY RP PANEL ADENOVIRUS Not Detected HUMAN METAPHNEUMO Not Detected INFLUENZA A Not Detected INFLUENZA A (SUBTYPE H1) Not Detected INFLUENZA A (SUBTYPE H3) Not Detected INFLUENZA B Not Detected PARAINFLUENZA 1 Not Detected PARAINFLUENZA 2 Not Detected PARAINFLUENZA 3 Not Detected PARAINFLUENZA 4 Not Detected RHINOVIRUS Not Detected RSV A Not Detected RSV B Not Detected NAAT METHOD Testing was performed using nucleic acid amplification Performed By: #### M100.638 #### [facility] [address], [place], [id number] CHEST PA AND LATERAL Observed: 03/17/2018 Status: F Source: [place] 6:08 PM [facility] REPOSITORY [facility] Imaging Services [address] [place] [address] Chest PA and Lateral MR#: [id number] Acct: [id number] Name: LOVELY SINGH Sr. Rep #: [id number] : 1935 M 82 From: Fatmata York DO PCP: Ashvin Tello MD, Chi Status: REG CLI Study: Chest PA and Lateral Date of Exam: 03/17/18 Exam# [id number] Ordering Dr: Ashvin Tello MD STUDY: X-RAY CHEST REASON FOR EXAM: Male, 82 years old. Cough. History of open heart surgery. TECHNIQUE: PA and lateral views of the chest. COMPARISON: October 14, 2017. FINDINGS: The lungs are clear and expanded. There is no demonstrated pleural abnormality. Sternal cerclage wires are present from a prior sternotomy. Normal mediastinum and donnie. Normal visualized pulmonary arteries. There is atherosclerotic calcification of the aortic arch with tortuosity. The thoracic spine is obscured by the mediastinum. There is degenerative osteoarthritis of the bilateral shoulders. There is no demonstrated abnormality of the visualized soft tissue structures of the upper abdomen. RAD/Chest PA and Lateral IMPRESSION: Evidence of median sternotomy. There is no acute cardiopulmonary disease. Electronically Signed: Fatmata York DO at 18:16 EST Tel [phone], Service support , CC: Ashvin Tello MD Web Systems Developer: Signed CPK TOTAL, CREATINE Collected: 02/05/2018 Status: F Source: [place] KINASE 3:08 PM [facility] REPOSITORY TYPE CODE TESTS RESULT OUT OF RANGE REFERENCE UNITS LAB L501.3620 39-308 U/L High CPK TOTAL 892 Performed By: #### L501.3620 #### [facility] [address] [place], [address] CPK TOTAL, CREATINE Collected: 01/28/2018 Status: F Source: [place] KINASE 11:16 AM [facility] REPOSITORY Order Comment: 'TROP' Serial specimen #1, #2, #3, or #4: 1 TYPE CODE TESTS RESULT OUT OF RANGE REFERENCE UNITS LAB L501.3620 39-308 U/L High CPK TOTAL 947 Performed By: #### L501.3620, L501.4010 #### [facility] [address] [place], [address] TROPONIN-I Collected: 01/28/2018 Status: F Source: [place] 11:16 AM [facility] REPOSITORY Order Comment: 'TROP' Serial specimen #1, #2, #3, or #4: 1 TYPE CODE TESTS RESULT OUT OF RANGE REFERENCE UNITS LAB L501.4010 <0.045 ng/mL Normal < 0.015 TROPONIN-I Result Comment: TROPONIN-I EXPECTED VALUES <0.045 Negative 0.045 - 0.590 Consistent with Cardiac Damage > OR = 0.600 Critical Value Not every elevated troponin is indicative of OR. These values should be used with clinical judgement in examining the patient's clinical picture for diagnosis. To establish a diagnosis of OR versus myocardial injury, there must be a demonstrated rise and/or fall in the troponin values, in addition to ischemic symptoms, EKG changes, new regional wall motion abnormality, and/or angiographical evidence. PLEASE NOTE: REFERENCE RANGES EDITED 17 Performed By: #### L501.3620, L501.4010 #### [facility] [address] [place], [address] MYOGLOBIN, SERUM Collected: 01/28/2018 Status: F Source: [place] 11:16 AM [facility] REPOSITORY TYPE CODE TESTS RESULT OUT OF RANGE REFERENCE UNITS LAB L3600.5100 28-72 ng/mL High 508 Myoglobin, Ser Result Comment: Performed at: [facility] [id number] Software Clerk: Joey Cho PhD, Phone: [phone] Performed By: #### L3600.5100 #### [facility] (refer to report for specific site) refer to report for address and phone number CBC W/DIFF, AUTOMATED Collected: 01/27/2018 Status: F Source: [place] 4:29 PM [facility] REPOSITORY TYPE CODE TESTS RESULT OUT OF RANGE REFERENCE UNITS LAB L100.1000 4.4-11.0 K/mm3 Normal WBC 6.1 LAB L100.1200 4.6-6.2 M/mm3 Low RBC 4.14 LAB L100.1300 13.0-16.5 g/dl Low HGB 12.4 LAB L100.1400 40-54 % Low HCT 39.1 LAB L100.1500 80-94 fL High MCV 94.4 LAB L100.1600 27.0-32.0 pg Normal MCH 30.0 LAB L100.1700 32-36 g/gl Low MCHC 31.7 LAB L100.1810 11.6-14.6 % High RDW CV 14.8 LAB L100.1820 35.1-43.9 fl High RDW SD 51.3 LAB L100.1900 150-450 K/mm3 Normal PLT 201 LAB L100.2000 6.2-12.0 fl Normal MPV 10.6 LAB L100.2100 47-70 % Normal NEUT% 52.6 LAB L100.2200 19-41 % Normal LY% 39.0 LAB L100.2300 0-10 % Normal MONO% 6.6 LAB L100.2400 0-5 % Normal EO% 1.3 LAB L100.2500 0-1 % Normal BASO% 0.3 LAB L100.2550 0.0-0.9 % Normal IM GRAN % 0.200 Result Comment: IG% - Immature Granulocytes (promyelocytes, myelocytes and metamyelocytes) > 1% indicates that a LEFT SHIFT is Present. LAB L100.2620 2.0-7.7 X10 3/uL Normal Absolute Neut 3.2 LAB L100.2720 0.83-4.51 X10 3/ul Normal Absolute Lymph 2.38 Performed By: #### L100.0100 #### [facility] [place], [address] BASIC METABOLIC Collected: 01/27/2018 Status: F Source: [place] PROFILE (BMP) 4:29 PM [facility] REPOSITORY Order Comment: 'TROP' Serial specimen #1, #2, #3, or #4: 1 TYPE CODE TESTS RESULT OUT OF RANGE REFERENCE UNITS LAB L501.0100 74-106 mg/dL Normal GLU 92 Result Comment: Please note revised GLUCOSE reference range effective 2017. LAB L501.1000 7-18 mg/dL Normal BUN 14 LAB L501.1100 0.70-1.30 mg/dL Normal CREAT,SERUM 1.20 Result Comment: The validity of the calculated GFR AND GFRAA in patients over 70 years has not been determined. Clinical correlation is essential. LAB L501.1110 >60 mL/min Normal EST GFR 62 Result Comment: Non- GFR Calc LAB L501.1115 >60 mL/min Normal EST GFR - AA 75 Result Comment: GFR Calc LAB L501.1300 10-20 RATIO Normal BUN/CRE 11.7 LAB L501.2200 8.5-10.1 mg/dL CA Normal 9.4 LAB L501.5300 136-145 mmol/L NA Normal 141 LAB L501.5600 3.5-5.1 mmol/L K Normal 4.5 LAB L501.5900 98-107 mmol/L CL Normal 107 LAB L501.6100 21.0-32.0 mmol/L Normal CO2 28.0 LAB L501.6200 5-15 Normal GAP 6 Performed By: #### L500.2500, L501.3620, L501.4010 #### [facility] [address] [place], [place], [id number] CPK TOTAL, CREATINE Collected: 01/27/2018 Status: F Source: [place] KINASE 4:29 PM [facility] REPOSITORY Order Comment: 'TROP' Serial specimen #1, #2, #3, or #4: 1 TYPE CODE TESTS RESULT OUT OF RANGE REFERENCE UNITS LAB L501.3620 39-308 U/L High CPK TOTAL 895 Performed By: #### L500.2500, L501.3620, L501.4010 #### [facility] [address] [place], [place], [address] TROPONIN-I Collected: 01/27/2018 Status: F Source: [place] 4:29 PM [facility] REPOSITORY Order Comment: 'TROP' Serial specimen #1, #2, #3, or #4: 1 TYPE CODE TESTS RESULT OUT OF RANGE REFERENCE UNITS LAB L501.4010 <0.045 ng/mL Normal < 0.015 TROPONIN-I Result Comment: TROPONIN-I EXPECTED VALUES <0.045 Negative 0.045 - 0.590 Consistent with Cardiac Damage > OR = 0.600 Critical Value Not every elevated troponin is indicative of OR. These values should be used with clinical judgement in examining the patient's clinical picture for diagnosis. To establish a diagnosis of OR versus myocardial injury, there must be a demonstrated rise and/or fall in the troponin values, in addition to ischemic symptoms, EKG changes, new regional wall motion abnormality, and/or angiographical evidence. PLEASE NOTE: REFERENCE RANGES EDITED 17 Performed By: #### L500.2500, L501.3620, L501.4010 #### [facility] [address] [place], [address] D-DIMER QUANTITATIVE Collected: 01/27/2018 Status: F Source: [place] (DVT/PE) 4:29 PM [facility] REPOSITORY TYPE CODE TESTS RESULT OUT OF RANGE REFERENCE UNITS LAB L300.8000 0.27-0.49 FEU/ug/m Normal D-DIMER 0.44 QUANT Result Comment: NORMAL D-Dimer level (<0.50) indicates no DVT or PE. Performed By: #### L300.8000 #### [facility] [address] [place], [address] BNP,B-TYPE NATRIURETIC Collected: 01/27/2018 Status: F Source: [place] PEPTIDE 4:29 PM [facility] REPOSITORY TYPE CODE TESTS RESULT OUT OF RANGE REFERENCE UNITS LAB L503.6620 0-100 pg/mL Normal B-TYPE 69.7 SELWYN PEP Performed By: #### L503.6620 #### [facility] [address] [place], [address] MYOGLOBIN, SERUM Collected: 01/27/2018 Status: F Source: [place] 4:29 PM [facility] REPOSITORY TYPE CODE TESTS RESULT OUT OF RANGE REFERENCE UNITS LAB L3600.5100 28-72 ng/mL High 583 Myoglobin, Ser Result Comment: Performed at: - [facility] [address], [place], [place] [id number] Software Clerk: Joey Cho PhD, Phone: [phone] Performed By: #### L3600.5100 #### [facility] (refer to report for specific site) refer to report for address and phone number WOUND CTR HISTORY Observed: 01/02/2018 Status: F Source: [place] AND PHYSICAL 11:58 AM [facility] REPOSITORY [facility] [address] [place] [address] Wound Ctr History AND Physical 01/02/18 1152 MR#: [id number] Acct: [id number] Name: LOVELY SINGH Sr. 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 Mcgovern for an quarter size open area on the medial aspect of the left lower ankle. Cobble stone type textured skin around the area also. Patient has history of quadruple bypass and use most of the veins from his left lower leg and an artery from his left forearm. Garcia states his left leg is always swollen and does not understand why. Patient has history of the same happenings pretty regularly every year or so. Last visit was in June 2016. Vision was cultured by Dr. Mcgovern for no MRSA. The open area is very superficial about the size of a quarter and should heal well it was blistered and now open. Past Medical History Past Medical History: Chronic Problems (Last Reviewed 10/14/17 @ 19:52 by Bobo Connell MD) Foraminal stenosis of lumbar region (Chronic) History of left heart catheterization (Chronic) Prior to CABG 09/12/2000 @ [facility]; 05/01/[address] Yancey @ [facility]; 08/27/2012 @ [facility] per Dr. 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 Allergies/Adverse Reactions: Allergies diazepam [From Valium] Allergy (Intermediate, Verified 12/05/17 14:57) Other HALLUCINATIONS morphine Allergy (Intermediate, Verified 12/05/17 14:57) Other TWITCHES Home Medications: Ambulatory Orders Medication Instructions Recorded Aspirin [Aspirin, Baby] 81 mg PO DAILY@0800 06/23/13 Metoprolol(XL)Succ [Toprol Xl 25 mg PO DAILY 06/23/13 (Beta Luis Felipe)] - Family History Maternal Family History: Family History (Last Reviewed 12/05/17 @ 14:59 by Nicole Garber) Father No problems noted. Mother Cancer Brother Throat cancer Brother COPD (chronic obstructive pulmonary disease) Brother No problems noted. Sister COPD (chronic obstructive pulmonary disease) Heart disease Sister COPD (chronic obstructive pulmonary disease) No pertinent history Paternal Family History: Family History (Last Reviewed 12/05/17 @ 14:59 by Nicole Garber) Father No problems noted. Mother Cancer Brother Throat cancer Brother COPD (chronic obstructive pulmonary disease) Brother No problems noted. Sister COPD (chronic obstructive pulmonary disease) Heart disease Sister COPD (chronic obstructive pulmonary disease) No pertinent history Smoking Status: Never smoker Review of Systems Constitutional: Denies: Chills, Fever Eyes: Denies: Blurred vision, Drainage, Pain HEENT: Denies: Difficulty Hearing, Difficulty Swallowing, Sore Throat, Visual Changes Cardiovascular: Denies: Chest Pain, Palpitations, Syncope Respiratory: Denies: Cough, Shortness of Breath Gastrointestinal: Denies: Abdominal Pain, Nausea, Vomiting Genitourinary: Denies: Dysuria, Frequency Musculoskeletal: Denies: Joint Pain, Muscle pain Skin: Reports: Wounds - Peripheral vascular ulcers left lower medial ankle. Denies: Jaundice, Rash Neurological: Denies: Balance problems, Change in Speech, Difficulty swallowing, Focal weakness Psychiatric: Denies: Anxiety, Depression Endocrine: Denies: Change in Body Habitus Hematologic/ Lymphatic: Denies: Adenopathy - Physical Exam Vital Signs Temp Pulse Resp BP 98 F 68 18 132/73 H 01/02/18 09:43 01/02/18 09:43 01/02/18 09:43 01/02/18 09:43 General: Oriented x3, Cooperative, Well developed HEENT: Atraumatic, PERRLA Oral: Moist Mucosa Neck: Supple, No JVD Lungs: Clear to auscultation, Normal air movement Cardiovascular: Regular rate, Regular Rhythm Abdomen: Bowel Sounds Present, Soft, Non Tender, No Hepato-splenomegaly Extremities: No clubbing, Edema, - - Peripheral vascular Wound Measurements and Assessment WC - Nurse 1 - General Ulcer Measurement Start: 01/02/18 09:28 Freq: Status: Active Protocol: Activity Type Activity Date Activity User E-Sign Co-Sign Detail Recorded Client Recorded Date Recorded By Document 01/02/18 09:43 CS [id number] 01/02/18 09:55 CS Wound Center Nurse 1 [Ulcer Assessment] #3 LEFT MEDIAL LE -Combined with other wound No -Current Size (cm) - Length 0.1 -Current Size (cm) - Width 0.1 WC - Nurse 2 - General Ulcer CM Notes Start: 01/02/18 09:28 Freq: Status: Active Protocol: Activity Type Activity Date Activity User E-Sign Co-Sign Detail Recorded Client Recorded Date Recorded By Document 01/02/18 10:22 MW [id number] 01/02/18 10:27 MW Wound Center Nurse 2 Musculoskeletal: No Tenderness to Palpation of Joints or Extremities Lymphatic: No Cervical, Supraclavicular, or Inguinal Adenopathy Neurological: Cranial nerves II-XII grossly intact, Neuro grossly intact Psych/Mental Status: Normal Affect, Appropriate Debridement Note Post-Debridement Measurements/Treatment WC - Nurse 2 - General Ulcer CM Notes Start: 01/02/18 09:28 Freq: Status: Active Protocol: Activity Type Activity Date Activity User E-Sign Co-Sign Detail Recorded Client Recorded Date Recorded By Document 01/02/18 10:22 MW [id number] 01/02/18 10:27 MW Wound Center Nurse 2 #3 LEFT MEDIAL LE -Time 10:22 -Correct Patient Yes -Correct Side, Site, Position Yes Wound debrided: Left lower medial ankle peripheral vascular ulcer Type of Debridement: Selective debridement Anesthesia Used: 5% Lidocaine Gel Depth: Down to and including healthy tissue Percentage of wound debrided: 100 Instrument Used: 3mm curette Tissue Removed: Fibrin and some devitalized tissue Severity: Limited To Skin Breakdown Amount of bleeding with debridement: Mild Bleeding Controlled with: Compression and gauze Patient tolerated procedure well Assessment/Plan Active Problems (Last Reviewed 10/14/17 @ 19:52 by Bobo Connell MD) Aortocoronary bypass status (Chronic) CABG 09/12/2000 X 5 vessels: CASTILLO to LAD,left radial artery to RCA, SVG to first snd second DX branches of the LAD and SVG to the lateral CX which 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 Apply Aquacel silver to the area moistened Adaptic gauze and tape. Layer Tubigrip to the left leg and a regular stocking to the right. Follow up in 1 week 01/02/18 1158 <Electronically signed by Marianna MYERS> Date Marianna MYERS CC: Signed MRSA WOUND DNA BY Collected: 12/18/2017 Status: F Source: NATE PCR 4:27 PM [facility] REPOSITORY Order Comment: Specimen Source? LEG WOUND SWAB TYPE CODE TESTS RESULT OUT OF RANGE REFERENCE UNITS LAB L8200.1100 Negative Normal MRSA Negative RESULT LAB [id number] Negative Normal SA RESULT NEGATIVE Performed By: #### [id number] #### [facility] [address] [place], [address] Observed: 12/18/2017 Status: F Source: NATE CULTURE, WOUND 4:27 PM [facility] REPOSITORY Gram Stain Gram Stain No organisms seen Wound Culture Possible skin contamination, further Identification and sensitivity will be performed only by physician's request. ORGANISM 1: Coag Negative Staph Amount Growth Rare Performed By: #### [id number] #### [facility] [address] [place] [address] [place], [address] CARDIOLOGY VISIT Observed: 12/11/2017 Status: F Source: NATE REPORT 10:36 AM [facility] REPOSITORY [facility] [address] [place] [address] OFFICE VISIT Date of Service: 12/05/17 MR#: [id number] Acct: [id number] Name: LOVELY SINGH Sr. Rep #: [id number] : 1935 Provider: Leana Wade Age/Sex: 82/M Location: [facility] Status: Signed HPI HPI Details: LOVELY SINGH, is a 82 M who presents to the office today for a cardiovascular follow-up. He has a history of coronary artery disease with bypass surgery. 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 He also has a history of hypertension, hyperlipidemia and previous pulmonary embolism. Patient does not have any chest discomfort. He does not have any worsening shortness of breath. He does not have any palpitations. He does not have any lightheadedness or dizziness. He does have lower extremity edema. He does work with his primary care doctor this. He does use his compression stockings. He does have a history of ulcerations in which she does see the wound center for. Intake Vital Signs12/05/17 Height 5 ft 7 in 12/05/17 Weight: 220 lb 12/05/17 Body Mass Index (BMI) 34.4 12/05/17 Blood Pressure 138/82 12/05/17 Blood Pressure Location Lt brachial Intake Visit Reasons: 6 M Clerk Rating Required: No Accompanied by: Is patient in pain?: No Allergies diazepam [From Valium] Allergy (Intermediate, Verified 12/05/17 14:57) Other morphine Allergy (Intermediate, Verified 12/05/17 14:57) Other Medications Aspirin [Aspirin, Baby] 81 mg PO DAILY@0800 06/23/13 [History Confirmed 12/05/17] Metoprolol(XL)Succ [Toprol Xl (Beta Luis Felipe)] 25 mg PO DAILY 06/23/13 [History Confirmed 12/05/17] Cetirizine HCl [Zyrtec] 10 mg PO DAILY 03/25/15 [History Confirmed 12/05/17] Finasteride [Proscar] 5 mg PO DAILY 03/25/15 [History Confirmed 12/05/17] Isosorbide Mononitrate [Isosorbide Mononitrate ER] 60 mg PO DAILY 03/25/15 [History Confirmed 12/05/17] Multivit-Min/FA/Lycopen/Lutein [Centrum Silver Tablet] 1 ea PO DAILY 03/25/15 [History Confirmed 12/05/17] Nitroglycerin [Nitrostat] 0.4 mg SUBLINGUAL Q5M PRN 03/25/15 [History Confirmed 12/05/17] atorvastatin 40 mg tablet 40 mg PO QHS tab 05/08/17 [History Confirmed 12/05/17] lubiprostone 24 mcg capsule 24 mcg PO BID cap 05/08/17 [History Confirmed 12/05/17] magnesium oxide 400 mg tablet 400 mg PO QDAY tab 05/08/17 [History Confirmed 12/05/17] pantoprazole 20 mg tablet,delayed release See Label Instructions PO QDAY 05/08/17 [History Confirmed 12/05/17] warfarin 5 mg tablet 5 mg PO .COMPLEX tab 06/05/17 [History Confirmed 12/05/17] colchicine 0.6 mg tablet PO 30 Days #30 12/05/17 [History Confirmed 12/05/17] furosemide 40 mg tablet 40 mg PO .prn tab 12/05/17 [History Confirmed 12/05/17] tamsulosin 0.4 mg capsule PO 30 Days #30 12/05/17 [History Confirmed 12/05/17] PFSH Medical History Atherosclerotic heart disease of [place] coronary artery with other forms of angina pectoris (Chronic) Dizziness and giddiness (Chronic) Precordial chest pain (Chronic) FCI use of drug (Chronic) Shortness of breath (Chronic) Tricuspid valve disorder (Chronic) Pulmonary hypertension (Chronic) Congestive heart failure (Chronic) Family history of hypertension (Chronic) Atherosclerotic heart disease of [place] coronary artery without angina pectoris (Chronic) Right pulmonary embolus (Chronic) Stroke (Chronic) Hyperlipidemia (Chronic) Hypertension (Chronic) Surgical History History of left heart catheterization (Chronic) Aortocoronary bypass status (Chronic) Family History Father , Unknown cause No problems noted. Mother Cancer Brother Throat cancer Brother COPD (chronic obstructive pulmonary disease) Brother , unknown cause No problems noted. Sister COPD (chronic obstructive pulmonary disease) Heart disease Sister COPD (chronic obstructive pulmonary disease) Social History Smoking Status: Former smoker pack-years: 15 ROS Const Const: Negative for weakness, fatigue, fever(s) or headache(s) Eyes Eyes: Negative for blind spots, loss of peripheral vision or transient loss of vision ENT ENT: Negative for headache(s), dizziness, tinnitus or Nosebleed/epistaxis Cardio Chest Pain: No Palpitations: No Edema: None Muscle aches with walking: None Resp Respiratory: Negative for SOB with activity, SOB at rest, SOB orthopnea\SOB lying down or Cough GI GI: Negative nausea, vomiting, heartburn or vomiting blood/hematemesis : Negative for hematuria Musc Musc: Negative for muscle aches/ myalgia Neuro Neuro: Negative for weakness, headache(s), dizziness, near syncope, syncope, lightheadedness or orthostatic symptoms [place] Hematologic/Lymphatic: Negative for easy bleeding Endo Endo: Negative for fatigue Cardiology Exam Const Appearance: cooperative, healthy appearing, well developed, well groomed and no acute distress Nutritional Appearance: well nourished and average body habitus Orientation: alert, awake and oriented x3 Head Head: normal to inspection, normocephalic and atraumatic Ears: hearing grossly normal bilaterally and external ears normal Nose: external nose normal, nasal mucous membranes and turbinates normal, nares normal, septum normal, no nasal discharge Face and Sinus: face symmetric Mouth: oral mucosae normal, tongue normal, oropharynx normal and moist mucous membranes Teeth and gingiva: dentition normal Throat: posterior oropharynx normal, tonsils normal and uvula midline Eyes General: appearance normal, both eyes and all related structures Eyelids: eyelids normal Conjunctivae: conjunctivae normal Pupils: PERRL, normal by confrontation and accommodation normal EOM: EOM intact bilaterally Neck Neck: normal visual inspection, trachea midline and no JVD JVD: +5 Carotids: normal carotid upstroke and bounding pulses Chest Chest inspection: normal inspection of the chest, symmetric chest movement and normal respiratory effort Auscultation: Bilateral: Clear to Auscultation Cardio Palpation: normal PMI Rate: regular rate Rhythm: regular rhythm Heart sounds: S1 normal, S2 normal and normal, physiologic split S2; negative rub, gallop or murmur GI GI: normal to inspection, soft, no hepatosplenomegaly and bowel sounds present Neuro General: alert, awake, oriented x3, no focal sensory deficit, gait normal and moves all extremities Skin Skin: no rashes or lesions noted Extremities Pulses: Normal: Left Radial Pulse, Diminished: Right Dorsalis Pedis Pulse, Left Dorsalis Pedis Pulse, Right Posterior Tibial Pulse, Left Posterior Tibial Pulse, Absent: Right Radial Pulse (Radial graft ) Lower Extremity Edema: +1: Bilateral (wearing compression stockings) Musculoskel Musculoskeletal: No joint tenderness Psych Psychological: normal affect Supplemental Info Heart catheterization 2012 demonstrated the abnormal circumflex arising from the right coronary artery the right coronary artery was previously angioplastied with mild disease in the left main coronary artery gives rise to left anterior descending artery with an 80% stenotic lesion. The CASTILLO to the LAD was minimally functional and he had an angioplasty and stenting to the left anterior descending artery. His last stress test was in 2015 with no obvious evidence of ischemia. Assessment AND Plan 1. Atherosclerosis of [place] coronary artery of [place] heart without angina pectoris I25.10 Plan - MICHELLE Keith Stable, from a cardiac standpoint patient does not have any symptoms of angina. We recommend that they continue with current aggressive medical management and risk factor modification. 2. Essential hypertension I10 Plan - MICHELLE Keith Blood pressure is well controlled on current medications, we do not recommend any changes at this time. 3. Hyperlipidemia, unspecified hyperlipidemia type E78.5 Plan - MICHELLE Keith This is managed by his primary care doctor. He will continue with his low-dose statin 4. Right pulmonary embolus I26.99 Plan - MICHELLE Kieth Patient will remain on Coumadin. His INR is managed by his primary care Plan Detail Additional Comments - MICHELLE Keith The above patient was discussed with Dr. Alcala, he agrees with plan of care. Thank you for allowing us to participate in patient's plan of care, if you have any questions please do not hesitate to call. This note was generated using a voice recognition system and there may be incorrect words, spelling or punctuation errors that were not noted when reviewing the office note prior to saving. 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 transplanted heart: [place] heart Essential hypertension I10 Hypertension type: essential hypertension Hyperlipidemia, unspecified hyperlipidemia type E78.5 Hyperlipidemia type: unspecified Right pulmonary embolus I26.99 Coding Level of Care Code Off vis,est,level 3 Diagnoses Atherosclerosis of [place] coronary artery of [place] heart without angina pectoris I25.10 [place] vs. transplanted heart: [place] heart Essential hypertension I10 Hypertension type: essential hypertension Hyperlipidemia, unspecified hyperlipidemia type E78.5 Hyperlipidemia type: unspecified Right pulmonary embolus I26.99 12/05/17 1609 <Electronically signed by Leana MARTINEZ> Date Leana MARTINEZ 12/11/17 1036<Electronically signed by Fito Alcala MD> Cosigner Signature: Date (if applicable) Fito Alcala MD CC: Ashvin Tello MD DISCHARGE SUMMARY Observed: 10/21/2017 Status: F Source: MANNING 10:32 AM [facility] REPOSITORY [facility] Medical Records Department [address] [place] [address] Discharge Summary 10/21/17 1026 MR#: [id number] Acct: [id number] Name: LOVELY SINGH . Rep #: [id number] : 1935 82 From: Mike Sanchez DO PCP: Ashvin Tello MD, Chi Status: DIS OLEG Y Location: [place] [address] Discharge Date and Diagnosis Date of Admission: 10/14/17 Date of Discharge: 10/15/17 - Primary Discharge Diagnosis Chest pain - Secondary Discharge Diagnosis Chronic Problems (Last Reviewed 10/14/17 @ 19:52 by Bobo Connell MD) Foraminal stenosis of lumbar region (Chronic) History of left heart catheterization (Chronic) Prior to CABG 09/12/2000 @ [facility]; 05/01/[address] Yancey @ [facility]; 08/27/2012 @ [facility] per Dr. 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 Electronically Signed: Andrew Chen MD at 17:27 EDT , Service support , Dr. Fito Alcala[facility] Operations: None Procedures: Stress test Summary of Care Provided: The patient is a 82 year old M with multiple medical problems including coronary artery disease with history of CABG 5 vessels who presented to the emergency department at [facility] on 10/14/2017 complaining of tightening in his chest associated with shortness of breath. EKG showed normal sinus rhythm with frequent premature ventricular complexes and a left anterior hemiblock. There were no significant ST or T-wave changes to indicate ischemia. Troponin was less than 0.015. Chest x-ray revealed no acute findings. He was admitted to a monitored bed on PCU and serial cardiac enzymes were ordered and were negative. Consultation was obtained with Dr. Alcala who recommended a pharmacologic stress test. The stress test revealed no significant ischemia and the gated ejection fraction was 68%. Dr. Alcala recommended continuing medical therapy. He had no significant dysrhythmia during the course of his hospital admission. He was discharged home and instructed to follow-up with Dr. Tello in 1-2 weeks. Discharge Activity: Return to Normal Activity Call your doctor if you observe: Fever of 101 or Higher, Shortness of breath, Dizziness, Fainting spells, Chest pain Home Medications: Medications to take at Discharge Aspirin [Aspirin, Baby] 81 mg PO DAILY@0800 06/23/13 Metoprolol(XL)Succ [Toprol Xl (Beta Luis Felipe)] 25 mg PO DAILY 06/23/13 Cetirizine HCl [Zyrtec] 10 mg PO DAILY 03/25/15 Finasteride [Proscar] 5 mg PO DAILY 03/25/15 Folic Acid/Vit Bcomp,C [B-Complex with Vit C Caplet] 400 mcg PO DAILY 03/25/15 Furosemide [Lasix] 40 mg PO DAILY 03/25/15 Isosorbide Mononitrate [Isosorbide Mononitrate ER] 60 mg PO DAILY 03/25/15 Multivit-Min/FA/Lycopen/Lutein [Centrum Silver Tablet] 1 ea PO DAILY 03/25/15 Nitroglycerin [Nitrostat] 0.4 mg SUBLINGUAL Q5M PRN 03/25/15 Oxybutynin Chloride [Ditropan Xl] 10 mg PO DAILY 03/25/15 atorvastatin 40 mg tablet 40 mg PO QHS tab 05/08/17 ergocalciferol (vitamin D2) 50,000 unit capsule 50,000 unit PO QMONTH 05/08/17 folic acid 400 mcg tablet 400 mcg PO QDAY 05/08/17 lubiprostone 24 mcg capsule 24 mcg PO BID cap 05/08/17 magnesium oxide 400 mg tablet 400 mg PO QDAY tab 05/08/17 pantoprazole 20 mg tablet,delayed release See Label Instructions PO QDAY 05/08/17 hydrocodone 5 mg-acetaminophen 325 mg tablet 1 tab PO Q6H PRN 06/05/17 warfarin 5 mg tablet 5 mg PO .COMPLEX tab 06/05/17 Primary Care Physician: Ashvin Tello Chi, MD [Primary Care Provider] - Please follow up with your Primary Care Physician in: 1-2 weeks Disposition: Home Minutes spent on discharge:: 25 Patient Condition:: Good Medical Necessity - Tobacco Use Smoking Status: Former smoker Meaningful Use Info Meaningful Use Diagnoses (Choose all that apply): None applicable Code Visit OBSV DARIANA: 87001 Observation care discharge 10/21/17 1032 <Electronically signed by Mike Sanchez DO> Date M Chantel Sanchez DO [facility] Signature (if applicable): Date CC: Irma Sanchez; Ashvin Tello MD Signed 12 LEAD ELECTROCARDIOGRAM Observed: 10/17/2017 Status: F Source: NATE 1:53 PM [facility] REPOSITORY [facility] Cardiovascular Services [address] [place] [address] 12 Lead EKG 10/14/17 2144 MR#: [id number] Acct: [id number] Name: LOVELY SINGH Sr. Rep #: [id number] : 1935 82 From: Fito Alcala MD Attending Dr: Irma Sanchez Status: DIS OLEG Ordering Dr: Bobo Connell MD Date: 10/14/17 Location: [facility] Sex: M AA Admitted: 10/14/17 Test Reason : CP REPEAT Blood Pressure : / mmHG Vent. Rate : 066 BPM Atrial Rate : 066 BPM P-R Int : 204 ms QRS Dur : 100 ms QT Int : 434 ms P-R-T Axes : 028 -50 000 degrees QTc Int : 454 ms Poor data quality, interpretation may be adversely affected Sinus rhythm with occasional Premature ventricular complexes and Fusion complexes Left anterior fascicular block Abnormal ECG When compared with ECG of 14-OCT-2017 16:45, MANUAL COMPARISON REQUIRED, DATA IS UNCONFIRMED Confirmed by FITO ALCALA MD ([id number]), book or script editor ISABELLE WYMAN ([id number]) on 10/17/2017 1:52:54 PM Referred By: JUANI Confirmed By:FITO ALCALA MD 10/17/17 1352 Date Fito Alcala MD CC: Irma Sanchez; Bobo Connell MD; Ashvin Tello MD Signed 12 LEAD ELECTROCARDIOGRAM Observed: 10/17/2017 Status: F Source: NATE 1:52 PM [facility] REPOSITORY [facility] Cardiovascular Services [address] [place] [address] 12 Lead EKG 10/15/17 0511 MR#: [id number] Acct: [id number] Name: LOVELY SINGH Sr. Rep #: [id number] : 1935 82 From: Fito Alcala MD Attending Dr: Irma Sanchez Status: DIS OLEG Ordering Dr: Fito Alcala MD Date: 10/15/17 Location: [facility] Sex: M AA Admitted: 10/14/17 Test Reason : AM EKG Blood Pressure : / mmHG Vent. Rate : 064 BPM Atrial Rate : 064 BPM P-R Int : 210 ms QRS Dur : 108 ms QT Int : 432 ms P-R-T Axes : 022 -47 -06 degrees QTc Int : 445 ms Sinus rhythm with 1st degree A-V block Left anterior fascicular block Left ventricular hypertrophy Abnormal ECG When compared with ECG of 14-OCT-2017 21:44, MANUAL COMPARISON REQUIRED, DATA IS UNCONFIRMED Confirmed by FREDRICK GARZON, FITO ([id number]), book or script editor ISABELLE WYMAN ([id number]) on 10/17/2017 1:51:58 PM Referred By: JUANI Confirmed By:FITO ALCALA MD 10/17/17 1352 Date Fito Alcala MD CC: Irma Sanchez; Fito Alcala MD; Ashvin Tello MD Signed 12 LEAD ELECTROCARDIOGRAM Observed: 10/17/2017 Status: F Source: NATE 1:37 PM [facility] REPOSITORY [facility] Cardiovascular Services [address] [place] [address] 12 Lead EKG 10/14/17 1645 MR#: [id number] Acct: [id number] Name: LOVELY SINGH Sr. Rep #: [id number] : 1935 82 From: Fito Alcala MD Attending Dr: Irma Sanchez Status: DIS OLEG Ordering Dr: Holger Nj MD Date: 10/14/17 Location: [facility] Sex: M AA Admitted: 10/14/17 Test Reason : CP Blood Pressure : / mmHG Vent. Rate : 079 BPM Atrial Rate : 079 BPM P-R Int : 178 ms QRS Dur : 098 ms QT Int : 402 ms P-R-T Axes : 013 -55 -05 degrees QTc Int : 460 ms Sinus rhythm with frequent Premature ventricular complexes Left anterior fascicular block Abnormal ECG Confirmed by FITO ALCALA MD ([id number]), book or script editor ISABELLE WYMAN ([id number]) on 10/17/2017 1:37:12 PM Referred By: SYEDA Confirmed By:FITO ALCALA MD 10/17/17 1337 Date Fito Alcala MD CC: Irma Sanchez; Ashvin Tello MD; Holger Nj MD Signed CONSULTATION Observed: 10/15/2017 Status: F Source: MANNING 7:21 PM [facility] REPOSITORY [facility] Medical Records Department [address] [place] [address] Consultation 10/15/17816 MR#: [id number] Acct: [id number] Name: LOVELY SINGH Sr. Rep #: [id number] : 1935 82 From: Fito Alcala MD PCP: Ashvin Tello MD, Chi Status: DIS OLEG Y Location: [place] [address] Reason for Consult Date of Consultation: 10/15/17 Reason for Consultation: Chest pain. History of Present Illness: LOVELY SINGH, is a 81 M who presents to the emergency room yesterday. He had been doing well and in his stable state of health until he went to the secured entrance monitor for a procedure. While there he apparently demonstrated and developed what he says was excruciating chest discomfort. There was no radiation of the discomfort no dizziness or diaphoresis. The emergency medical squad was called and brought him to the emergency room. He says that he had some improvement with sublingual nitroglycerin. He was admitted for further workup.He is a gentleman with a history of coronary artery disease status post coronary bypass surgery. 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 He denies any shortness breath or paroxysmal nocturnal dyspnea or pedal edema. 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 The CASTILLO to the LAD was minimally functional and he had an angioplasty and stenting to the left anterior descending artery. His last stress test was in 2015 with no obvious evidence of ischemia. He has had no neck arm or jaw discomfort suggest angina no dizziness no diaphoresis no near syncope or syncope. His physical exam today demonstrates clear lung colon regular rate and rhythm and no pedal edema. He is scheduled for an awaiting stress testing this morning. [] Past Medical History Allergies/Adverse Reactions: Allergies diazepam [From Valium] Allergy (Intermediate, Verified 10/14/17 16:42) Other HALLUCINATIONS morphine Allergy (Intermediate, Verified 10/14/17 16:42) Other TWITCHES Home Medications: Ambulatory Orders Medication Instructions Recorded Past Medical History (Chronic Problems): Chronic Problems (Last Reviewed 10/14/17 @ 19:52 by Bobo Connell MD) History of left heart catheterization (Chronic) Prior to CABG 09/12/2000 @ [facility]; 05/01/[address] Yancey @ [facility]; 08/27/2012 @ [facility] per Dr. 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 - *Family History Maternal Family History: Family History (Last Reviewed 06/05/17 @ 15:25 by Fito Alcala MD) Father No problems noted. Mother Cancer Brother Throat cancer Brother COPD (chronic obstructive pulmonary disease) Brother No problems noted. Sister COPD (chronic obstructive pulmonary disease) Heart disease Sister COPD (chronic obstructive pulmonary disease) History Items: No pertinent history Paternal Family History: Family History (Last Reviewed 06/05/17 @ 15:25 by Fito Alcala MD) Father No problems noted. Mother Cancer Brother Throat cancer Brother COPD (chronic obstructive pulmonary disease) Brother No problems noted. Sister COPD (chronic obstructive pulmonary disease) Heart disease Sister COPD (chronic obstructive pulmonary disease) History Items: No pertinent history Lives: Spouse/ Significant Other Smoking Status: Former smoker Alcohol: None Drugs: None Review of Systems - Review of Systems General: Denies: Fever, Night Sweats, Fatigue Cardiovascular: Reports: Chest Discomfort. Denies: Shortness of Breath, Orthopnea, PND, Peripheral Edema, Palpitations, Lightheadedness, Dizziness, Near Syncope, Syncope Respiratory: Denies: Cough, Sputum Production, Hemoptysis Gastrointestinal: Denies: Hematemesis, Hematochezia, Melena Genitourinary: Denies: Dysuria, Hematuria Skin: Denies: Rash Subjectve: Pleasant gentleman in no distress sleeping. Objective: Vital Signs Temp Pulse Resp BP Pulse Ox 98.4 F 64 16 137/71 H 94 10/15/17 08:07 10/15/17 08:07 10/15/17 08:07 10/15/17 08:07 10/15/17 08:07 Oxygen Delivery Method Room Air Weight: 214 lb 4.629 oz Body Mass Index (BMI) 33.5 Intake and Output for Last 24 Hours Intake Total 720 / 720 Output Total 1150 / 1150 Balance -430 / -430 General: Awake, Alert, Oriented x 3 HEENT: PERRL, EOMI, Sclera Non Icteric Neck: Supple, Good ROM, No Lymph Node Enlargement Lungs: Clear to auscultation Cardiovascular: Regular Rhythm, Normal S1, Normal S2, No Murmurs, No Rubs, No Gallops Vascular: No Carotid Bruits, Normal Femoral Pulses, Normal Radial Pulses, Normal Dorsalis Pedal Pulse, Normal Posterior Tibial Pulses Abdomen: Bowel Sounds Present, Soft, Non Tender, No HSM, No Organomegaly Extremities: No Cyanosis, No Clubbing, No edema Neurological: No Focal Motor or Sensory Deficit 10/14/17 21:41: Troponin I < 0.015 10/15/17 00:01: Troponin I < 0.015 10/15/17 03:09: Sodium 142, Potassium 3.9, Chloride 107, Carbon Dioxide 25.0, Anion Gap 10, BUN 15, Creatinine 1.05, Est GFR (MDRD) Af Amer 87, Est GFR (MDRD) Non-Af 72, BUN/Creatinine Ratio 14.3, Glucose 93, Calcium 8.9 10/15/17 03:09: Troponin I < 0.015 10/15/17 03:09: WBC 7.0, RBC 4.35 L, Hgb 13.7, Hct 40.6, MCV 93.3, MCH 31.5, MCHC 33.7, RDW 14.7 H, RDW Differential 50.3 H, Plt Count 201, MPV 10.6, Immature Gran % (Auto) 0.100, Neut % (Auto) 53.5, Lymph % (Auto) 37.6, [place] % (Auto) 6.9, Eos % (Auto) 1.6, Baso % (Auto) 0.3, Absolute Neuts (auto) 3.7, Total Counted Not Reportable 10/15/17 07:15: APTT 31.8 Rhythm: EKG: Normal sinus rhythm with a rate of 64 bpm Assessment/Plan 1. Chest pain. Patient has known coronary artery disease history but experienced chest discomfort which was uncharacteristic for angina. His EKG is noted to be normal with no changes in his troponins thus far have been normal. I would recommend and concur with obtaining a pharmacologic myocardial perfusion stress test. If the above is normal I would suggest continued medical therapy. 2. Hypertension Patient has known hypertensive heart disease and his blood pressure appears to well controlled on the current medical therapy I would not recommend we make any changes at this particular time. 3. Coronary artery disease. Patient is status post carotid bypass surgery. His anatomy is well detailed in my HPI. My recommendations at this time will be dependent on what his stress test shows. 4. Previous pulmonary embolism. He does have a history of previous pulmonary embolism but his most recent echocardiogram demonstrated ejection fraction of 55-60% with normal pulmonary pressures. I do not think that this chest pain is a manifestation of that. Thank you for allowing me to participate in the care of your patient. Please don't hesitate to call if any issues arise 10/15/171920 <Electronically signed by Fito Alcala MD> Date Fito Alcala MD Cosigner Signature (if applicable): Date CC: Fito Alcala MD; Ashvin Tello MD Signed DISCHARGE INSTRUCTION Observed: 10/15/2017 Status: F Source: MANNING 2:43 PM [facility] REPOSITORY [facility] Medical Records Department [address] [place] [id number] Instructions for Home/Discharge Instructions 10/15/17 1429 MR#: [id number] Acct: [id number] Name: LOVELY SINGH Sr. Rep #: [id number] : 1935 82 From: Mike Sanchez DO PCP: Omer GARZON,Ashvin Hall Status: ADM OLEG - Discharge Diagnoses Current Active Problems: Current Active and Chronic Problems (Last Reviewed 10/14/17 @ 19:52 by Bobo Connell MD) Chest pain (Acute) You will use the following diet at home:: Other - Resume previous diet Discharge Activity: Return to Normal Activity Call your doctor if you observe: Fever of 101 or Higher, Shortness of breath, Dizziness, Fainting spells, Chest pain Allergies/Adverse Reactions: Allergies diazepam [From Valium] Allergy (Intermediate, Verified 10/14/17 16:42) Other HALLUCINATIONS morphine Allergy (Intermediate, Verified 10/14/17 16:42) Other TWITCHES Medications to take at Discharge Aspirin [Aspirin, Baby] 81 mg PO DAILY@0800 06/23/13 Metoprolol(XL)Succ [Toprol Xl (Beta Luis Felipe)] 25 mg PO DAILY 06/23/13 Cetirizine HCl [Zyrtec] 10 mg PO DAILY 03/25/15 Finasteride [Proscar] 5 mg PO DAILY 03/25/15 Folic Acid/Vit Bcomp,C [B-Complex with Vit C Caplet] 400 mcg PO DAILY 03/25/15 Furosemide [Lasix] 40 mg PO DAILY 03/25/15 Isosorbide Mononitrate [Isosorbide Mononitrate ER] 60 mg PO DAILY 03/25/15 Multivit-Min/FA/Lycopen/Lutein [Centrum Silver Tablet] 1 ea PO DAILY 03/25/15 Nitroglycerin [Nitrostat] 0.4 mg SUBLINGUAL Q5M PRN 03/25/15 Oxybutynin Chloride [Ditropan Xl] 10 mg PO DAILY 03/25/15 atorvastatin 40 mg tablet 40 mg PO QHS tab 05/08/17 ergocalciferol (vitamin D2) 50,000 unit capsule 50,000 unit PO QMONTH 05/08/17 folic acid 400 mcg tablet 400 mcg PO QDAY 05/08/17 lubiprostone 24 mcg capsule 24 mcg PO BID cap 05/08/17 magnesium oxide 400 mg tablet 400 mg PO QDAY tab 05/08/17 pantoprazole 20 mg tablet,delayed release See Label Instructions PO QDAY 05/08/17 hydrocodone 5 mg-acetaminophen 325 mg tablet 1 tab PO Q6H PRN 06/05/17 warfarin 5 mg tablet 5 mg PO .COMPLEX tab 06/05/17 Primary Care Physician: Ashvin Tello Chi, MD [Primary Care Provider] - Please follow up with your Primary Care Physician in: 1-2 weeks Test Results: Test results from this visit will be discussed in further detail at your follow-up appointment, if applicable. Proposed Discharge Date: 10/15/17 10/15/17 1443 <Electronically signed by Mike Sanchez DO> Date Mike Chantel Sanchez DO CC: Fito Alcala MD; Ashvin Tello MD STRESS REPORT Observed: 10/15/2017 Status: F Source: MANNING 11:07 AM [facility] REPOSITORY [facility] Cardiovascular Services [address] [place] [address] MR#: [id number] Acct: [id number] Name: LOVELY SINGH Sr. Rep #: [id number] : 1935 82 From: Fito Alcala MD Primary Care: Ashvin Tello MD, Chi Status: ADM OLEG Ordering Dr: Sex: Mike CLEMENTS Stress Test Report Pharmacologic myocardial perfusion stress test. 82-year-old man with a history of coronary bypass surgery with a left internal mammary artery to the left anterior descending artery, left radial to the circumflex right coronary artery, saphenous vein graft to first and second diagonal branches and saphenous vein graft to lateral circumflex artery. Stress protocol: Resting EKG demonstrates sinus bradycardia with a rate of 59 bpm normal intervals and noted resting blood pressure is 122/84 mmHg. 0.4 mg of regadenoson was infused per usual protocol followed by rapid intravenous saline flush injection continuous EKG monitoring was performed. The patient maintained sinus rhythm throughout the recording the maximum heart rate was 81 bpm which was 58% of maximum predicted heart rate the maximum workload was 1 metabolic equivalent. The resting blood pressure is 122/84 with a final blood pressure 118/70 mmHg. Myocardial perfusion protocol. 14.4 mCi of technetium 99m sestamibi was injected stress images were obtained stress and rest images were reconstructed and compared in the short axis vertical long and horizontal long axis. Gated images were also obtained. Perfusion SPECT analysis: Review of the stress images demonstrate normal uptake of tracer noted in the septum anterior wall and lateral wall. The basal inferolateral wall has mild to moderately reduced perfusion on the stress images which is also present on the resting images. There is a hint of perhaps minimal improvement. No significant ischemia however is noted. Previous basal inferior infarct is present as well. The right ventricle is noted to be prominent. Gated SPECT analysis: The gated ejection fraction is 68%. Conclusion: Pharmacologic myocardial perfusion stress test with no significant ischemia noted. Previous basal inferior infarct is present. Minimal humaira-infarct ischemia cannot be completely excluded. Preserved ejection fraction. 10/15/177 <Electronically signed by Fito Alcala MD> Date Fito Alcala MD CC: Irma Sanchez; Ashvin Tello MD Date Dictated: 10/15/171101 Date Transcribed: 10/15/171101 Web Systems Developer: CO Signed PARTIAL THROMBOPLAST Collected: 10/15/2017 Status: F Source: MANNING TIME 7:15 AM [facility] REPOSITORY Order Comment: PT REFUSED WAS DRAWN AROUND 0300 DID NOT WANT POKED AGAIN. TYPE CODE TESTS RESULT OUT OF RANGE REFERENCE UNITS LAB L300.4310 24.1-36.2 Seconds Normal PTT 31.8 Performed By: #### L100.0100, L300.4310 #### [facility] [address] [place], [place], [address] PROTHROMBIN TIME W/INR Collected: 10/15/2017 Status: F Source: MANNING 7:15 AM [facility] REPOSITORY TYPE CODE TESTS RESULT OUT OF RANGE REFERENCE UNITS LAB L300.4150 11.7-14.9 SECONDS High PROTIME 18.8 LAB L300.4200 Normal INR 1.6 Performed By: #### L300.3900 #### [facility] [address] [place], [address] TROPONIN-I Collected: 10/15/2017 Status: F Source: MANNING 3:09 AM [facility] REPOSITORY Order Comment: 'TROP' Serial specimen #1, #2 or #3: 3 TYPE CODE TESTS RESULT OUT OF RANGE REFERENCE UNITS LAB L501.4010 <0.045 ng/mL Normal < 0.015 TROPONIN-I Result Comment: TROPONIN-I EXPECTED VALUES <0.045 Negative 0.045 - 0.590 Consistent with Cardiac Damage > OR = 0.600 Critical Value Not every elevated troponin is indicative of OR. These values should be used with clinical judgement in examining the patient's clinical picture for diagnosis. To establish a diagnosis of OR versus myocardial injury, there must be a demonstrated rise and/or fall in the troponin values, in addition to ischemic symptoms, EKG changes, new regional wall motion abnormality, and/or angiographical evidence. PLEASE NOTE: REFERENCE RANGES EDITED 17 Performed By: #### L501.4010 #### [facility] [place], [address] CBC W/DIFF, AUTOMATED Collected: 10/15/2017 Status: F Source: MANNING 3:09 AM [facility] REPOSITORY TYPE CODE TESTS RESULT OUT OF RANGE REFERENCE UNITS LAB L100.1000 4.4-11.0 K/mm3 Normal WBC 7.0 LAB L100.1200 4.6-6.2 M/mm3 Low RBC 4.35 LAB L100.1300 13.0-16.5 g/dl Normal HGB 13.7 LAB L100.1400 40-54 % Normal HCT 40.6 LAB L100.1500 80-94 fL Normal MCV 93.3 LAB L100.1600 27.0-32.0 pg Normal MCH 31.5 LAB L100.1700 32-36 g/gl Normal MCHC 33.7 LAB L100.1810 11.6-14.6 % High RDW CV 14.7 LAB L100.1820 35.1-43.9 fl High RDW SD 50.3 LAB L100.1900 150-450 K/mm3 Normal PLT 201 LAB L100.2000 6.2-12.0 fl Normal MPV 10.6 LAB L100.2100 47-70 % Normal NEUT% 53.5 LAB L100.2200 19-41 % Normal LY% 37.6 LAB L100.2300 0-10 % Normal MONO% 6.9 LAB L100.2400 0-5 % Normal EO% 1.6 LAB L100.2500 0-1 % Normal BASO% 0.3 LAB L100.2550 0.0-0.9 % Normal IM GRAN % 0.100 Result Comment: IG% - Immature Granulocytes (promyelocytes, myelocytes and metamyelocytes) > 1% indicates that a LEFT SHIFT is Present. LAB L100.2620 2.0-7.7 X10 3/uL Normal Absolute Neut 3.7 LAB L100.2720 0.83-4.51 X10 3/ul Normal Absolute Lymph 2.62 Performed By: #### L100.0100, L300.4310 #### [facility] [address] [place], [place], [address] BASIC METABOLIC Collected: 10/15/2017 Status: F Source: NATE PROFILE (BMP) 3:09 AM [facility] REPOSITORY TYPE CODE TESTS RESULT OUT OF RANGE REFERENCE UNITS LAB L501.0100 74-106 mg/dL Normal GLU 93 Result Comment: Please note revised GLUCOSE reference range effective 2017. LAB L501.1000 7-18 mg/dL Normal BUN 15 LAB L501.1100 0.70-1.30 mg/dL Normal CREAT,SERUM 1.05 Result Comment: The validity of the calculated GFR AND GFRAA in patients over 70 years has not been determined. Clinical correlation is essential. LAB L501.1110 >60 mL/min Normal EST GFR 72 Result Comment: Non- GFR Calc LAB L501.1115 >60 mL/min Normal EST GFR - AA 87 Result Comment: GFR Calc LAB L501.1255 ml/min Normal Estimated CRCL 51.59 LAB L501.1300 10-20 RATIO Normal BUN/CRE 14.3 LAB L501.2200 8.5-10 mg/dL Normal .1 CA 8.9 LAB L501.5300 136-14 mmol/L Normal 5 NA 142 LAB L501.5600 3.5-5. mmol/L Normal 1 K 3.9 LAB L501.5900 98-107 mmol/L Normal CL 107 LAB L501.6100 21.0-3 mmol/L Normal 2.0 CO2 25.0 LAB L501.6200 5-15 Normal GAP 10 Performed By: #### L500.2500 #### [facility] [address] [facility] [place], [address] TROPONIN-I Collected: 10/15/2017 Status: F Source: NATE 12:01 AM [facility] REPOSITORY Order Comment: 'TROP' Serial specimen #1, #2 or #3: 2 TYPE CODE TESTS RESULT OUT OF RANGE REFERENCE UNITS LAB L501.4010 <0.045 ng/mL Normal < 0.015 TROPONIN-I Result Comment: TROPONIN-I EXPECTED VALUES <0.045 Negative 0.045 - 0.590 Consistent with Cardiac Damage > OR = 0.600 Critical Value Not every elevated troponin is indicative of OR. These values should be used with clinical judgement in examining the patient's clinical picture for diagnosis. To establish a diagnosis of OR versus myocardial injury, there must be a demonstrated rise and/or fall in the troponin values, in addition to ischemic symptoms, EKG changes, new regional wall motion abnormality, and/or angiographical evidence. PLEASE NOTE: REFERENCE RANGES EDITED 17 Performed By: #### L501.4010 #### [facility] [address] [place], [address] TROPONIN-I Collected: 10/14/2017 Status: F Source: MANNING 9:41 PM [facility] REPOSITORY Order Comment: 'TROP' Serial specimen #1, #2 or #3: 1 TYPE CODE TESTS RESULT OUT OF RANGE REFERENCE UNITS LAB L501.4010 <0.045 ng/mL Normal < 0.015 TROPONIN-I Result Comment: TROPONIN-I EXPECTED VALUES <0.045 Negative 0.045 - 0.590 Consistent with Cardiac Damage > OR = 0.600 Critical Value Not every elevated troponin is indicative of OR. These values should be used with clinical judgement in examining the patient's clinical picture for diagnosis. To establish a diagnosis of OR versus myocardial injury, there must be a demonstrated rise and/or fall in the troponin values, in addition to ischemic symptoms, EKG changes, new regional wall motion abnormality, and/or angiographical evidence. PLEASE NOTE: REFERENCE RANGES EDITED 17 Performed By: #### L501.4010 #### [facility] [address] [place], [address] HISTORY AND PHYSICAL Observed: 10/14/2017 Status: F Source: MANNING EXAM 8:18 PM [facility] REPOSITORY [facility] Medical Records Department [address] [place] [address] History and Physical 10/14/17 1907 MR#: [id number] Acct: [id number] Name: LOVELY SINGH Rep #: [id number] : 1935 82 From: Bobo Connell MD PCP: Omer GARZON,Ashvin Hall Status: ADM OLEG Y Location: [place] [address] Problem List (1) Chest pain Status: Acute Qualifiers: Ischemic chest pain type: stable angina pectoris History of Present Illness Date of Admission: 10/14/17 Chief Complaint: chest pain The patient is a 82 year old M with a significant history of multiple CVAs/TIA; CAD with CABG and multiple stents; CHF; pulmonary embolism on warfarin therapy,hypertension and hyperlipidemia who presented with sudden onset excruciating chest pain that started on the day of his admission. 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 The paramedics were called and he was brought to the emergency department. Associated with symptoms is shortness of breath. The patient chest pain improved with nitroglycerin. The patient is a known patient of [facility] and had a last stress test in 2015 which did not show any evidence of ischemia. Past Medical History Past Medical History (Chronic Problems): Chronic Problems (Last Reviewed 10/14/17 @ 19:52 by Bobo Connell MD) History of left heart catheterization (Chronic) Prior to CABG 09/12/2000 @ [facility]; 05/01/[address] Yancey @ [facility]; 08/27/2012 @ [facility] per Dr. Alcala Atherosclerotic heart disease of [place] coronary artery with other forms of angina pectoris (Chronic) CASTILLO graft to LAD, radial art graft to RCA, saphenous vein graft to CFX, saphenous vein graft to OM 1, OM 2 OTCAm 06/21/02 of distal AND proximal RCA, PTCA with EASTON to proximal LAD 07/2012 Dizziness and giddiness (Chronic) Precordial chest pain (Chronic) Aortocoronary bypass status (Chronic) CABG 09/12/2000 X 5 vessels: CASTILOL to LAD,left radial artery to RCA, SVG to first snd second DX branches of the LAD and SVG to the lateral CX which 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) Right pulmonary embolus (Chronic) Stroke (Chronic) Hyperlipidemia (Chronic) Hypertension (Chronic) Medical History: Medical History (Last Reviewed 10/14/17 @ 19:52 by Bobo Connell MD) Atherosclerotic heart disease of [place] coronary artery with other forms of angina pectoris (Chronic) I25.118 CASTILLO graft to LAD, radial art graft to RCA, saphenous vein graft to CFX, saphenous vein graft to OM 1, OM 2 OTCAm 06/21/02 of distal AND proximal RCA, PTCA with EASTON to proximal LAD 07/2012 Dizziness and giddiness (Chronic) R42 Precordial chest pain (Chronic) 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 use of drug (Chronic) Z79.899 Shortness of breath (Chronic) R06.02 Tricuspid valve disorder (Chronic) I07.9 Pulmonary hypertension (Chronic) I27.20 Congestive heart failure (Chronic) I50.9 Systolic dysfunction Family history of hypertension (Chronic) Z82.49 Atherosclerotic heart disease of [place] coronary artery without angina pectoris (Chronic) I25.10 Right pulmonary embolus (Chronic) I26.99 Stroke (Chronic) I63.9 Hyperlipidemia (Chronic) E78.5 Hypertension (Chronic) I10 Allergies diazepam [From Valium] Allergy (Intermediate, Verified 10/14/17 16:42) Other HALLUCINATIONS morphine Allergy (Intermediate, Verified 10/14/17 16:42) Other TWITCHES Home Medications: Ambulatory Orders Medication Instructions Recorded Surgical History: Surgical History (Last Reviewed 10/14/17 @ 19:52 by Bobo Connell MD) History of left heart catheterization (Chronic) Z98.890 Prior to CABG 09/12/2000 @ [facility]; 05/01/[address] Yancey @ [facility]; 08/27/2012 @ [facility] per Dr. 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 Monet [facility] Surgical History: coronary bypass surgery, total hip arthroplasty, - - Hiatal hernia surgery. Lives: Spouse/ Significant Other Smoking Status: Former smoker - *Family History Maternal Family History: Family History (Last Reviewed 06/05/17 @ 15:25 by Fito Alcala MD) Father No problems noted. Mother Cancer Brother Throat cancer Brother COPD (chronic obstructive pulmonary disease) Brother No problems noted. Sister COPD (chronic obstructive pulmonary disease) Heart disease Sister COPD (chronic obstructive pulmonary disease) History Items: No pertinent history Paternal Family History: Family History (Last Reviewed 06/05/17 @ 15:25 by Fito Alcala MD) Father No problems noted. Mother Cancer Brother Throat cancer Brother COPD (chronic obstructive pulmonary disease) Brother No problems noted. Sister COPD (chronic obstructive pulmonary disease) Heart disease Sister COPD (chronic obstructive pulmonary disease) History Items: No pertinent history Review of Systems Constitutional: Reports: Fatigue. Denies: Anorexia Eyes: Denies: Double vision, Pain HEENT: Denies: Head Aches, Sinus Congestion, Sinus Drainage Cardiovascular: Reports: Chest Pain, Chest Tightness, Orthopnea - (Chronic) Respiratory: Reports: Shortness of Breath. Denies: Cough, Shortness of breath at rest, Sputum production Gastrointestinal: Denies: Abdominal Pain, Nausea, Vomiting Genitourinary: Denies: Dysuria Musculoskeletal: Reports: Back Pain Skin: Denies: Rash, Wounds Neurological: Denies: Numbness, Tingling, Focal weakness Psychiatric: Denies: Anxiety, Depression, Homicidal Ideations, Suicidal Ideations Hematologic/ Lymphatic: Denies: Easy Bruising, Easy Bleeding VTE Information - Inpt Only VTE Present on Admission: No VTE Mechan Device Prophylaxis: None VTE Pharm Prophylaxis ordered?: No Reason prophylaxis not ordered:: Medical Contraindication - On warfarin for a history of PE. Patient Problems: Active and Suspected Problems (Last Reviewed 10/14/17 @ 19:52 by Bobo Connell MD) Chest pain (Acute) - Physical Exam General: Alert, Oriented x3, Cooperative HEENT: Atraumatic, PERRLA, EOMI, Normocephalic Neck: Supple, No JVD, Negative Carotid Bruits Lungs: Clear to auscultation, Normal air movement Cardiovascular: Regular rate, No murmurs Abdomen: Bowel Sounds Present Extremities: No edema, Capillary Refill Less than 3 Seconds Skin: No rashes, No breakdown Musculoskeletal: No Tenderness to Palpation of Joints or Extremities Neurological: Cranial nerves II-XII grossly intact, - - Motor strength 2/5 in right lower extremity. (Previous CVA).All other extremities 5/5. Range of motion severely limited in right lower extremity. Vital Signs Temp Pulse Resp BP Pulse Ox 98.7 F 71 22 H 152/78 H 95 10/14/17 16:43 10/14/17 18:00 10/14/17 18:00 10/14/17 18:00 10/14/17 18:00 Oxygen Flow Rate (L/min) 2 Oxygen Delivery Method Nasal Cannula Weight: 102.3 kg Body Mass Index (BMI) 35.3 Laboratory Tests Past 24 Hrs Assessment/Plan All Active Problems (Last Reviewed 10/14/17 @ 19:52 by Bobo Connell MD) Chest pain (Acute) This is an 82 year old gentleman with a significant history of hypertension, CAD status post CABG and stents, CVA, CHF and hyperlipidemia who is a known patient of [facility] presenting with sudden onset chest pain that improved dramatically with nitroglycerin. His last stress test in 2015 did not show evidence of ischemia. His current presentation is concerning for stable angina. Chest pain Likely due to stable angina. However because of his risk factors will continue cardiac enzymes. First cardiac enzymes was negative. Because patient is not known patient of [facility] will consult cardiology. Chest x-ray with a calcification of coronary arteries Nitroglycerin as needed for chest pain The patient received aspirin 324 in route to the ED. Continue aspirin 81 mg daily. Continue metoprolol succinate Continue isosorbide mononitrate Lipitor continued Hypertension Metoprolol and Imdur continue as above Hydralazine as needed for systolic blood pressure 101 60 History of PE On home warfarin INR is sub-therapeutic at 1.6 Warfarin dose adjusted for 5 mg daily to 7.5 mg daily. Daily PT/INR DVT prophylaxis continue Coumadin. Code Visit Inpatient E AND M: 25320 Init Hosp L2 10/14/172017 <Electronically signed by Bobo Connell MD> Date Bobo Connell MD Cosigner Signature: Date (if applicable) CC: Bobo Connell MD; Ashvin Tello MD Signed EMERGENCY DEPARTMENT Observed: 10/14/2017 Status: F Source: MANNING SUMMARY 6:44 PM [facility] REPOSITORY [facility] Medical Records Department [address] [place] [address] Emergency Department Summary 10/14/17 1838 MR#: [id number] Acct: [id number] Name: LOVELY SINGH Rep #: [id number] : 1935 82 From: Holger Nj MD PCP: Ashvin Tello MD, Chi Status: REG ER - ER Visit Summary Date of Service: 10/14/17 Chief Complaint: Substernal aching tightness with shortness of breath. History of Present Illness: The patient is a 82 M who presents to the emergency room by ambulance because of midsternal chest discomfort with dyspnea. He is a poor informant. He has known coronary disease with multiple vessels bypassed and multiple stents. He is on Coumadin for recent diagnosis of pulmonary embolus. He was given aspirin by paramedics and nitro. Nitro did help his discomfort. He does have history of orthopnea that is stable. He does report increased swelling of his lower extremities, however. Per review of old records he has had 5 vessels bypassed and multiple stents. He also has history of CVA, congestive heart failure, hypertension, hypercholesterolemia. He has history of tricuspid valve disease. Physical Examination: Vital signs are essentially unremarkable. HEENT exam is unremarkable. Heart is regular. There is no murmur, gallop or rub. Lungs are clear to auscultation. He has well-healed midsternal and midline abdominal scar. There is no abdominal bruit, palpable or pulsatile mass. Difficult to assess pulses because of swelling. There is no asymmetry, discoloration, leg vein distention or tenderness along the description deep venous system. There is no palpable cords. He is alert he is oriented. 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 Chest x-ray reveals median sternal wires. Mild cardiomegaly with limited story volume. No other interpretation was made. There is no evidence of pleural effusion. There is no abnormality of the osseous structures. CBC unremarkable. Electro panels unremarkable. INR is subtherapeutic at 1.6. Troponin is less than 0.015. Emergency Department Course and Treatment: Patient was treated with nitroglycerin sublingual. He received aspirin by squad. Cardiac workup was undertaken. Treatment Plan: PCU for further testing Disposition: Further testing and serial enzymes Impression: 1. Midsternal chest pain 2. History coronary disease 3. History of CVA 4. History hypertension 5. History of hypercholesterolemia 6. History of congestive heart failure 7. History of pulmonary embolus This note was generated with PoachIt dictation software. It may contain incorrect words, spelling, and punctuation that were not noted in review of the chart prior to signing ED Disposition - Plan for ED Patient: Chief Complaint: Chest Pain Referrals: Ashvin Tello Chi, MD [Primary Care Provider] - What to do if you have Problems For any increased pain, shortness of breath, bleeding, nausea or vomiting, chest pain, or any unexpected problems, contact your Primary Care Provider. Call [facility] ([phone]) or report to the closest Emergency Room. Call 911 if necessary. 10/14/17 4164 <Electronically signed by Holger Nj MD> Date Holger Nj MD Cosigner Signature (If Indicated): Date CC: Ashvin Tello MD CBC W/DIFF, AUTOMATED Collected: 10/14/2017 Status: F Source: NATE 4:55 PM [facility] REPOSITORY TYPE CODE TESTS RESULT OUT OF RANGE REFERENCE UNITS LAB L100.1000 4.4-11.0 K/mm3 Normal WBC 7.2 LAB L100.1200 4.6-6.2 M/mm3 Normal RBC 4.66 LAB L100.1300 13.0-16.5 g/dl Normal HGB 14.7 LAB L100.1400 40-54 % Normal HCT 43.5 LAB L100.1500 80-94 fL Normal MCV 93.3 LAB L100.1600 27.0-32.0 pg Normal MCH 31.5 LAB L100.1700 32-36 g/gl Normal MCHC 33.8 LAB L100.1810 11.6-14.6 % High RDW CV 14.9 LAB L100.1820 35.1-43.9 fl High RDW SD 50.1 LAB L100.1900 150-450 K/mm3 Normal PLT 221 LAB L100.2000 6.2-12.0 fl Normal MPV 10.6 LAB L100.2100 47-70 % Normal NEUT% 51.8 LAB L100.2200 19-41 % Normal LY% 38.4 LAB L100.2300 0-10 % Normal MONO% 8.0 LAB L100.2400 0-5 % Normal EO% 1.4 LAB L100.2500 0-1 % Normal BASO% 0.3 LAB L100.2550 0.0-0.9 % Normal IM GRAN % 0.100 Result Comment: IG% - Immature Granulocytes (promyelocytes, myelocytes and metamyelocytes) > 1% indicates that a LEFT SHIFT is Present. LAB L100.2620 2.0-7.7 X10 3/uL Normal Absolute Neut 3.7 LAB L100.2720 0.83-4.51 X10 3/ul Normal Absolute Lymph 2.77 Performed By: #### L100.0100 #### [facility] [address] [facility]. [place], [place], [address] PROTHROMBIN TIME W/INR Collected: 10/14/2017 Status: F Source: MANNING 4:55 PM [facility] REPOSITORY TYPE CODE TESTS RESULT OUT OF RANGE REFERENCE UNITS LAB L300.4150 11.7-14.9 SECONDS High PROTIME 18.7 LAB L300.4200 Normal INR 1.6 Performed By: #### L300.3900 #### [facility] [address] [place], [address] BASIC METABOLIC Collected: 10/14/2017 Status: F Source: MANNING PROFILE (BMP) 4:55 PM [facility] REPOSITORY TYPE CODE TESTS RESULT OUT OF RANGE REFERENCE UNITS LAB L501.0100 74-106 mg/dL Normal GLU 79 Result Comment: Please note revised GLUCOSE reference range effective 2017. LAB L501.1000 7-18 mg/dL Normal BUN 14 LAB L501.1100 0.70-1.30 mg/dL Normal CREAT,SERUM 1.27 Result Comment: The validity of the calculated GFR AND GFRAA in patients over 70 years has not been determined. Clinical correlation is essential. LAB L501.1110 >60 mL/min Low EST GFR 58 Result Comment: Non- GFR Calc LAB L501.1115 >60 mL/min Normal EST GFR - AA 70 Result Comment: GFR Calc LAB L501.1255 ml/min Normal Estimated CRCL 42.65 LAB L501.1300 10-20 RATIO Normal BUN/CRE 11.0 LAB L501.2200 8.5-10 mg/dL Normal .1 CA 9.4 LAB L501.5300 136-14 mmol/L Normal 5 NA 143 LAB L501.5600 3.5-5. mmol/L Normal 1 K 4.4 Result Comment: Slight Hemolysis, Result may be falsely increased. LAB L501.5900 98-107 mmol/L Normal CL 107 LAB L501.6100 21.0-32.0 mmol/L Normal CO2 29.0 LAB L501.6200 5-15 Normal 7 GAP Performed By: #### L500.2500, L501.4010 #### [facility] [address] [facility] [place], [address] TROPONIN-I Collected: 10/14/2017 Status: F Source: NATE 4:55 PM [facility] REPOSITORY TYPE CODE TESTS RESULT OUT OF RANGE REFERENCE UNITS LAB L501.4010 <0.045 ng/mL Normal < 0.015 TROPONIN-I Result Comment: TROPONIN-I EXPECTED VALUES <0.045 Negative 0.045 - 0.590 Consistent with Cardiac Damage > OR = 0.600 Critical Value Not every elevated troponin is indicative of OR. These values should be used with clinical judgement in examining the patient's clinical picture for diagnosis. To establish a diagnosis of OR versus myocardial injury, there must be a demonstrated rise and/or fall in the troponin values, in addition to ischemic symptoms, EKG changes, new regional wall motion abnormality, and/or angiographical evidence. PLEASE NOTE: REFERENCE RANGES EDITED 17 Performed By: #### L500.2500, L501.4010 #### [facility] [address] [place], [address] CHEST 1 VIEW Observed: 10/14/2017 Status: F Source: MANNING (PORTABLE) 4:54 PM [facility] REPOSITORY [facility] Imaging Services [address] [place] [address] Chest 1 View (Portable) MR#: [id number] Acct: [id number] Name: LOVELY SINGH Rep #: [id number] : 1935 M 82 From: Andrew Chen MD PCP: Omer GARZON,Ashvin Hall Status: REG ER Study: Chest 1 View (Portable) Date of Exam: 10/14/17 Exam# [id number] Ordering Dr: Holger Nj MD STUDY: X-RAY CHEST REASON FOR EXAM: Male, 82 years old. PT WITH SUDDEN ONSET OF STERNAL CHEST PAIN WHEN AT EYE DR. TECHNIQUE: Single AP portable view of the chest. COMPARISON: 3. FINDINGS: The lungs are clear and expanded. There is no demonstrated pleural abnormality. There are calcifications of the coronary arteries. Normal mediastinum and donnie. Normal visualized pulmonary arteries. There is atherosclerotic tortuosity of the aortic arch and descending thoracic aorta. There are diffuse degenerative changes of the visualized thoracic spine. There is degenerative osteoarthritis of the bilateral shoulders. There is no demonstrated abnormality of the visualized soft tissue structures of the upper abdomen. RAD/Chest 1 View (Portable) IMPRESSION: Normal x-ray examination of the chest. Electronically Signed: Andrew Chen MD at 17:27 EDT , Service support , CC: Ashvin Tello MD; Holger Nj MD Web Systems Developer: Signed VENOUS DUPLEX LOWER Observed: 08/06/2017 Status: F Source: NATE EXTREMITY 10:09 PM [facility] REPOSITORY [facility] Cardiovascular Services [address] [address] Venous Duplex US - Donal Extrem 08/06/17922 MR#: [id number] Acct: [id number] Name: LOVELY SINGH Rep #: [id number] : 1935 81 From: Ok Roberts MD Attending Dr: Omer GARZON,Ashvin Hall Status: REG CLI Ordering Dr: Ashvin Tello MD Date: 08/06/17 Location: CVS Sex: M AA Admitted: Reason For Study: LEG PAIN AND SWELLING RIGHT LEFT GSV is normal. GSV is normal. CFV is compressible, spontaneous, phasic, CFV is compressible, spontaneous, phasic, competent and demonstrates normal competent, and demonstrates normal augmentation. augmentation. FV is compressible, spontaneous, phasic, FV and POP V are patent, compressible, competent and demonstrates normal spontaneous, phasic and demonstrate augmentation. INCOMPETENCY with augmentation. POP V is compressible, spontaneous, phasic, T/P Trunk is compressible. competent and demonstrates normal PTV is compressible. augmentation. LT PerV is compressible. T/P Trunk is compressible. PTV is compressible. RT PerV is compressible. Procedure Exam performed in department. A preliminary report was called and/or faxed to Dr. Tello. Interpretation Summary Deep veins of the lower extremities are bilaterally patent and compressible segmentally. There is no evidence of deep vein thrombosis on either side. Valvular competence appears intact within the proximal deep venous system on the right . On the left, the femoral vein and popliteal vein are incompetent. The left common femoral vein is competent. The greater saphenous veins appear bilaterally patent and compressible segmentally. Ordering Physician: Ashvin Tello Referring Physician: Ashvin Tello Chi Performed By: Binta Marin RVT 08/06/172208 Date Ok Roberts MD CC: Ashvin Tello MD Date Dictated: 08/06/17922 Date Transcribed: 08/06/172208 Web Systems Developer: Signed KNEE 3 VIEWS Observed: 08/05/2017 Status: F Source: MANNING 4:59 PM [facility] REPOSITORY [facility] Imaging Services [address] [place] [address] [place] [address] Knee 3 Views MR#: [id number] Acct: [id number] Name: LOVELY SINGH Rep #: [id number] : 1935 M 81 From: Vipul Phipps DO PCP: Ashvin Tello MD, Chi Status: REG CLI Study: Knee 3 Views Date of Exam: 08/05/17 Exam# [id number] Ordering Dr: Ashvin Tello MD STUDY: X-RAY - RIGHT KNEE REASON FOR EXAM: Male, 81 years old. Osteoarthritis TECHNIQUE: 3 view(s) of the knee. COMPARISON: 02/03/2013 FINDINGS: Normal visualized distal femur. Normal visualized proximal tibia and fibula. Normal proximal tibiofibular articulation. There is spurring along the articular surface of the patella. There is moderate degenerative arthrosis of the medial femorotibial compartment with moderate joint space narrowing. There is moderate degenerative arthrosis of the lateral femorotibial compartment with moderate joint space narrowing. There is patella janessa. There is no demonstrated joint effusion. There are atherosclerotic calcifications. RAD/Knee 3 Views IMPRESSION: Degenerative changes. No acute bony abnormality. Electronically Signed: Vipul PhippsDO at 10:34 EDT Tel , Service support , CC: Ashvin Tello MD Web Systems Developer: Signed CBC W/DIFF, AUTOMATED Collected: 08/05/2017 Status: F Source: NATE 4:38 PM [facility] REPOSITORY TYPE CODE TESTS RESULT OUT OF RANGE REFERENCE UNITS LAB L100.1000 4.4-11.0 K/mm3 Normal WBC 6.8 LAB L100.1200 4.6-6.2 M/mm3 Low RBC 4.36 LAB L100.1300 13.0-16.5 g/dl Normal HGB 13.4 LAB L100.1400 40-54 % Normal HCT 40.2 LAB L100.1500 80-94 fL Normal MCV 92.2 LAB L100.1600 27.0-32.0 pg Normal MCH 30.7 LAB L100.1700 32-36 g/gl Normal MCHC 33.3 LAB L100.1810 11.6-14.6 % High RDW CV 16.1 LAB L100.1820 35.1-43.9 fl High RDW SD 53.5 LAB L100.1900 150-450 K/mm3 Normal PLT 192 LAB L100.2000 6.2-12.0 fl Normal MPV 10.0 LAB L100.2100 47-70 % Normal NEUT% 59.3 LAB L100.2200 19-41 % Normal LY% 33.5 LAB L100.2300 0-10 % Normal MONO% 6.1 LAB L100.2400 0-5 % Normal EO% 1.0 LAB L100.2500 0-1 % Normal BASO% 0.1 LAB L100.2550 0.0-0.9 % Normal IM GRAN % 0.000 Result Comment: IG% - Immature Granulocytes (promyelocytes, myelocytes and metamyelocytes) > 1% indicates that a LEFT SHIFT is Present. LAB L100.2620 2.0-7.7 X10 3/uL Normal Absolute Neut 4.0 LAB L100.2720 0.83-4.51 X10 3/ul Normal Absolute Lymph 2.29 Performed By: #### L100.0100, L101.9900 #### [facility] [address] [place], [address] ERYTHROCYTE SED RATE Collected: 08/05/2017 Status: F Source: NATE 4:38 PM [facility] REPOSITORY TYPE CODE TESTS RESULT OUT OF RANGE REFERENCE UNITS LAB L102.0000 0-20 mm/hr High SED RATE 29 Performed By: #### L100.0100, L101.9900 #### [facility] [address] [place], [address] BASIC METABOLIC Collected: 08/05/2017 Status: F Source: NATE PROFILE (BMP) 4:38 PM [facility] REPOSITORY TYPE CODE TESTS RESULT OUT OF RANGE REFERENCE UNITS LAB L501.0100 74-106 mg/dL Normal GLU 81 Result Comment: Please note revised GLUCOSE reference range effective 2017. LAB L501.1000 7-18 mg/dL Normal BUN 17 LAB L501.1100 0.70-1.30 mg/dL High CREAT,SERUM 1.31 Result Comment: The validity of the calculated GFR AND GFRAA in patients over 70 years has not been determined. Clinical correlation is essential. LAB L501.1110 >60 mL/min Low EST GFR 56 Result Comment: Non- GFR Calc LAB L501.1115 >60 mL/min Normal EST GFR - AA 68 Result Comment: GFR Calc LAB L501.1300 10-20 RATIO Normal BUN/CRE 13.0 LAB L501.2200 8.5-10.1 mg/dL CA Normal 9.3 LAB L501.5300 136-145 mmol/L NA Normal 141 LAB L501.5600 3.5-5.1 mmol/L K Normal 4.5 Result Comment: Moderate Hemolysis, Result may be falsely increased. LAB L501.5900 98-107 mmol/L Normal CL 107 LAB L501.6100 21.0-32.0 mmol/L Normal CO2 28.0 LAB L501.6200 5-15 Normal 6 GAP Performed By: #### L500.2500, L501.1400, L501.6710 #### [facility] [address] [place], [address] URIC ACID Collected: 08/05/2017 Status: F Source: MANNING 4:38 PM [facility] REPOSITORY TYPE CODE TESTS RESULT OUT OF RANGE REFERENCE UNITS LAB L501.1400 3.5-7.2 mg/dL High URIC 7.6 Result Comment: The drugs N-Acetylcysteine and Metamizole may falsely depress this assay. Performed By: #### L500.2500, L501.1400, L501.6710 #### [facility] [address] [facility], [address] CRP Collected: 08/05/2017 Status: F Source: MANNING 4:38 PM [facility] REPOSITORY TYPE CODE TESTS RESULT OUT OF RANGE REFERENCE UNITS LAB L501.6710 0.0-3.0 mg/L Normal < 2.90 C-REACTIVE PROT Result Comment: C-Reactive Protein (CRP) provides useful information for the diagnosis, therapy and monitoring of inflammatory processes and associated diseases. For the evaluation of Relative Risk for Cardiovascular Disease, a High Sensitivity CRP (HSCRP) should be ordered. Performed By: #### L500.2500, L501.1400, L501.6710 #### [facility] [address] [facility] [place], [place], [address] Observed: 06/05/2017 Status: F Source: MANNING RESPIRATORY PANEL 6:20 PM [facility] MOLECULAR REPOSITORY RP PANEL ADENOVIRUS Not Detected HUMAN METAPHNEUMO Not Detected INFLUENZA A Not Detected INFLUENZA A (SUBTYPE H1) Not Detected INFLUENZA A (SUBTYPE H3) Not Detected INFLUENZA B Not Detected PARAINFLUENZA 1 Not Detected PARAINFLUENZA 2 Not Detected PARAINFLUENZA 3 Not Detected PARAINFLUENZA 4 Not Detected RHINOVIRUS Not Detected RSV A Not Detected RSV B Not Detected NAAT METHOD Testing was performed using nucleic acid amplification Performed By: #### M100.638 #### [facility] [address] [place], [place], [address] CHEST PA AND LATERAL Observed: 06/05/2017 Status: F Source: MANNING 5:52 PM [facility] REPOSITORY [facility] Imaging Services [address] [place] [address] Chest PA and Lateral MR#: [id number] Acct: [id number] Name: LOVELY SINGH Rep #: [id number] : 1935 M 81 From: Bakari Faust DO PCP: Ashvin Tello MD, Chi Status: REG CLI Study: Chest PA and Lateral Date of Exam: 06/05/17 Exam# [id number] Ordering Dr: Ashvin Tello MD STUDY: X-RAY CHEST REASON FOR EXAM: Male, 81 years old. Cough, bronchitis TECHNIQUE: Frontal and lateral views COMPARISON: None. FINDINGS: Sternotomy wires are again noted. The lungs are not fully expanded. There is no demonstrated pleural abnormality. Stable mild cardiomegaly. Normal mediastinum and donnie. Normal visualized pulmonary arteries. Calcified aortic arch and descending thoracic aorta. Degenerative changes and scoliosis of the thoracic spine. Normal visualized ribs, clavicles, and shoulders. There is no demonstrated abnormality of the visualized soft tissue structures of the upper abdomen. RAD/Chest PA and Lateral IMPRESSION: No acute pulmonary pathology of the chest. Electronically Signed: Bakari Faust DO at 18:21 EST Tel [phone], Service support , CC: Ashvin Tello MD Web Systems Developer: Signed CARDIOLOGY VISIT Observed: 06/05/2017 Status: F Source: MANNING REPORT 3:29 PM [facility] REPOSITORY [facility] [address] [place] [address] OFFICE VISIT Date of Service: 06/05/17 MR#: [id number] Acct: [id number] Name: LOVELY SINGH Rep #: [id number] : 1935 Provider: Fito Alcala MD Age/Sex: 81/M [place] [facility] [place] Signed HPI HPI Chief Complaint: Follow-up visit. Details: LOVELY SNIGH, is a 81 M who presents to the office today for a follow-up visit. She is a gentleman with a history of coronary artery disease status post coronary bypass surgery. 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 He returns for follow-up visit he denies any chest pain or shortness breath or paroxysmal nocturnal dyspnea or pedal edema he says that at the moment he is recovering from an upper respiratory tract infection. 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 The CASTILLO to the LAD was minimally functional and he had an angioplasty and stenting to the left anterior descending artery. His last stress test was in 2015 with no obvious evidence of ischemia. He has had no neck arm or jaw discomfort suggest angina no dizziness no diaphoresis no near syncope or syncope. His physical exam today demonstrates clear lung colon regular rate and rhythm and no pedal edema. Intake Vital Signs06/05/17 Weight: 217 lb 06/05/17 Blood Pressure 120/60 Intake Visit Reasons: 6 M FU (pt r/s from 2-13) Accompanied by: Is patient in pain?: No Allergies diazepam [From Valium] Allergy (Intermediate, Verified 06/05/17 15:13) Other morphine Allergy (Intermediate, Verified 06/05/17 15:13) Other Medications Aspirin [Aspirin, Baby] 81 mg PO DAILY@0800 06/23/13 [History Confirmed 06/04/17] Metoprolol(XL)Succ [Toprol Xl (Beta Luis Felipe)] 25 mg PO DAILY 06/23/13 [History Confirmed 06/04/17] Cetirizine HCl [Zyrtec] 10 mg PO DAILY 03/25/15 [History Confirmed 06/04/17] Finasteride [Proscar] 5 mg PO DAILY 03/25/15 [History Confirmed 06/04/17] Folic Acid/Vit Bcomp,C [B-Complex with Vit C Caplet] 400 mcg PO DAILY 03/25/15 [History Confirmed 06/05/17] Furosemide [Lasix] 40 mg PO DAILY 03/25/15 [History Confirmed 06/04/17] Isosorbide Mononitrate [Isosorbide Mononitrate ER] 60 mg PO DAILY 03/25/15 [History Confirmed 06/04/17] Multivit-Min/FA/Lycopen/Lutein [Centrum Silver Tablet] 1 ea PO DAILY 03/25/15 [History Confirmed 06/04/17] Nitroglycerin [Nitrostat] 0.4 mg SUBLINGUAL Q5M PRN 03/25/15 [History Confirmed 06/04/17] Oxybutynin Chloride [Ditropan Xl] 10 mg PO DAILY 03/25/15 [History Confirmed 06/04/17] atorvastatin 40 mg tablet 40 mg PO QHS tab 05/08/17 [History Confirmed 06/04/17] ergocalciferol (vitamin D2) 50,000 unit capsule 50,000 unit PO QMONTH 05/08/17 [History Confirmed 06/04/17] folic acid 400 mcg tablet 400 mcg PO QDAY 05/08/17 [History Confirmed 06/04/17] lubiprostone 24 mcg capsule 24 mcg PO BID cap 05/08/17 [History Confirmed 06/04/17] magnesium oxide 400 mg tablet 400 mg PO QDAY tab 05/08/17 [History Confirmed 06/04/17] pantoprazole 20 mg tablet,delayed release See Label Instructions PO QDAY 05/08/17 [History Confirmed 06/05/17] hydrocodone 5 mg-acetaminophen 325 mg tablet 1 tab PO Q6H PRN 06/05/17 [History Confirmed 06/05/17] warfarin 5 mg tablet 5 mg PO .COMPLEX tab 06/05/17 [History Confirmed 06/05/17] Ejection fraction %: 55 to 59 PFSH Medical History Atherosclerotic heart disease of [place] coronary artery with other forms of angina pectoris (Chronic) Dizziness and giddiness (Chronic) Precordial chest pain (Chronic) 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 Mother Cancer Brother Throat cancer Brother COPD (chronic obstructive pulmonary disease) Brother , unknown cause No problems noted. Sister COPD (chronic obstructive pulmonary disease) Heart disease Sister COPD (chronic obstructive pulmonary disease) Social History Smoking Status: Former smoker pack-years: 15 ROS Const Const: Positive for fatigue and other (Has a sinus/upper respiratory infection); negative for body ache, fever(s), chills, night sweats, daytime sleepiness, difficulty sleeping, excessive sweating, weight gain, weight loss, increased appetite, poor appetite, anorexia, frequent falls, headache(s) or weakness Eyes Eyes: Negative for blind spots, loss of peripheral vision, transient loss of vision, change in vision, floaters, tunnel vision, other, blurry vision or double vision ENT ENT: Negative for balance problems, tongue swelling, lip swelling, dizziness or headache(s) Cardio Chest Pain: No Palpitations: No Edema: Bilateral (Chronic, wears support socks) Muscle aches with walking: None Resp Respiratory: Positive for other (Cough productive dark yellow sputum); negative for SOB with activity, SOB at rest, SOB orthopnea\SOB lying down, Coughing up blood/hemoptysis, chest congestion, pain on inspiration, snoring, stridor, wheezing, crackles or paroxysmal nocturnal dyspnea GI GI: Positive for nausea (from sinus drainage); negative vomiting, heartburn, constipation, belching, bloating, cramping, vomiting blood/hematemesis, bright, red blood in stools, black,tarry stools, loose stools, Difficulty Swallowing or other : Negative for hematuria, frequent nighttime urination/ nocturia, erectile dysfunction or abnormal vaginal bleeding Musc Musc: Positive for muscle weakness and joint pain; negative for muscle aches/ myalgia or balance problems Skin Skin: Negative redness, non-healing lesions, rash, unusual bruising, skin ulcer, wounds, jaundice or other Neuro Neuro: Positive for other (walks with walker); negative for dizziness, lightheadedness, near syncope, syncope, orthostatic symptoms, frequent falls, headache(s), weakness, confusion, memory loss, restless legs, blurry vision, double vision, vertigo, seizures or lack of coordination [place] Hematologic/Lymphatic: Negative for easy bleeding, easy bruising, enlarged lymph nodes or other Endo Endo: Positive for fatigue; negative for excessive sweating Psych Psych: Negative for anxiety, depression, thoughts of harming anyone, thoughts of harming yourself, visual hallucinations, panic attacks or audible hallucinations Allergy Allergy/Immunology: Negative for rash, Negative for throat swelling, Negative for tongue swelling, Negative for hives, Negative for lip swelling Cardiology Exam Const Appearance: cooperative, healthy appearing, well developed, well groomed and no acute distress Nutritional Appearance: well nourished and average body habitus Orientation: alert, awake and oriented x3 Head Head: normal to inspection, normocephalic and atraumatic Ears: hearing grossly normal bilaterally and external ears normal Nose: external nose normal, nasal mucous membranes and turbinates normal, nares normal, septum normal, no nasal discharge Face and Sinus: face symmetric Mouth: oral mucosae normal, tongue normal, oropharynx normal and moist mucous membranes Teeth and gingiva: dentition normal Throat: posterior oropharynx normal, tonsils normal and uvula midline Eyes General: appearance normal, both eyes and all related structures Eyelids: eyelids normal Conjunctivae: conjunctivae normal Pupils: PERRL, normal by confrontation and accommodation normal EOM: EOM intact bilaterally Neck Neck: normal visual inspection, trachea midline and no JVD JVD: +5 Carotids: normal carotid upstroke and bounding pulses Chest Chest inspection: normal inspection of the chest, symmetric chest movement and normal respiratory effort Auscultation: Bilateral: Clear to Auscultation Cardio Palpation: normal PMI Rate: regular rate Rhythm: regular rhythm Heart sounds: S1 normal, S2 normal and normal, physiologic split S2; negative rub, gallop or murmur GI GI: normal to inspection, soft, no hepatosplenomegaly and bowel sounds present Neuro General: alert, awake, oriented x3, no focal sensory deficit, gait normal and moves all extremities Skin Skin: no rashes or lesions noted Extremities Pulses: Normal: Right Femoral Pulse, Left Femoral Pulse, Right Dorsalis Pedis Pulse, Left Dorsalis Pedis Pulse, Right Posterior Tibial Pulse, Left Posterior Tibial Pulse, Right Radial Pulse, Left Radial Pulse Lower Extremity Edema: None: Bilateral Musculoskel Musculoskeletal: No joint tenderness Psych Psychological: normal affect Assessment AND Plan 1. 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 Monet [facility] Plan He appears to be doing well at this time with no evidence of angina his last catheterization is as described above and his last stress test is as noted above. At this present time my recommendation will be to continue medical therapy with the risk factor modification. He has not used any more nitroglycerin recently. 2. Essential hypertension I10 Plan His blood pressure appears to be under excellent control on the current medications and I would not suggest that we make any adjustments. 3. Hyperlipidemia, unspecified hyperlipidemia type E78.5 Plan He will remain on his high intensity statin for secondary prevention. His most recent lipid profile is not immediately available to me however if you would continue to check it out be most grateful. 4. Right pulmonary embolus I26.99 Plan He does have a history of pulmonary embolism but his last echocardiogram demonstrated preserved ejection fraction estimated at 55-60% and a normally functioning right ventricle. There did not appear to be any significant tricuspid regurgitation. My recommendation will be for him to continue on his Coumadin. No other changes will be made. Thank you for allowing me to participate in the care of your patient. 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 Essential hypertension I10 Hypertension type: essential hypertension Hyperlipidemia, unspecified hyperlipidemia type E78.5 Hyperlipidemia type: unspecified Right pulmonary embolus I26.99 06/05/17 1529 <Electronically signed by Fito Alcala MD> Date Fito Alcala MD Cosigner Signature: Date (if applicable) CC: Ashvin Tello MD ALLERGIES ALLERGIES DATE TYPE / CODE NAME / CODE REACTION SEVERITY SOURCE 12/05/2017 Drug diazepam/F00 Other [place] [facility] Allergy/4160 [id number]([place] [address]([facility]) Repository CT) 12/05/2017 Drug morphine/F00 Other [place] [facility] Allergy/4160 [id number]([place] [address]([facility]) Repository CT) ENCOUNTERS ENCOUNTERS ADMIT/DISCHARGE ACCOUNT ADMITTING ENCOUNTER LOCATION SOURCE NUMBER CLASS 04/09/2018 [id number] Ambulatory [place] 2 [facility] ing:LABSPEC Repository 03/17/2018 [id number] Ambulatory [place] 2 [facility] ing:LAB Repository 02/08/2018 [id number] Ambulatory [place] 9 [facility] ing:WC Repository 02/05/2018 [id number] Ambulatory [place] 3 [facility] ing:POLAB3 Repository 01/28/2018 [id number] Ambulatory [place] 8 [facility] ing:POLAB3 Repository 01/27/2018 [id number] [place] 4 [facility] ing:POLAB3 Repository 01/09/2018/ [id number] Ambulatory [place] 8 4 [facility] ing:WC Repository 12/18/2017 [id number] Ambulatory [place] 5 [facility] ing:LABSPEC Repository 12/05/2017/ [id number] Ambulatory BMSBuilding:B [place] 8 5 [place] [place] 10/14/2017/ [id number] Ambulatory BMSBuilding:W [place] 8 6 [facility] Repository 10/14/2017 [id number] [place], Ambulatory BMSBuilding:B [place] 3 [place] [facility] [place] 10/14/2017 [id number] [place], Ambulatory BMSBuilding:B [place] 7 [place].[facility] Repository 10/14/2017/ [id number] [place], Amb[place] 5 [facility] ing:PCURoom: Repository [id number]: 1 10/14/2017/ [id number] Ambulatory BMSBuilding:W [place] 8 8 [facility] Repository 08/06/2017 [id number] Ambulatory [place] 9 [facility] ing:CVS Repository 08/05/2017 [id number] Ambulatory [place] 7 [facility] ing:POLAB3 Repository 06/05/2017 [id number] Ambulatory [place] 2 [facility] ing:RAD Repository 06/05/2017/ [id number] Ambulatory BMSBuilding:B [place] 8 8 [facility] Repository PAYERS PAYERS ENCOUNTER GUARANTOR PAYER SUBSCRIBER SOURCE 04/09/2018 LOVELY SINGH Primary LOVELY SINGH [place] Sr[address] Insurance:MEDICARE Sr.: [place] PART A [facility] [id number] Hospital [address]Div: (330) Number: Repository [phone] () [id number] Date:2018-04-09 04/09/2018 Secondary NOT GIVENUNK [place] Insurance:SELF PAY [facility] Number: Effective Repository Date:2018-04-09 03/17/2018 LOVELY SINGH Primary LOVELY SINGH [place] Sr[address] Insurance:MEDICARE Sr.: [place] PART A [facility] [id number] Hospital [address]Ulm: (330) Number: Repository [phone] () [id number] Date:2018-03-17 03/17/2018 Secondary NOT GIVENUNK [place] Insurance:SELF PAY [facility] Number: Effective Repository Date:2018-03-17 02/08/2018 LOVELY SINGH Primary LOVELY SINGH [place] Sr[address] Insurance:MEDICARE Sr.: [place] PART A [facility] [id number] Hospital [address]Pev: (330) Number: Repository [phone] () [id number] Date:2018-01-02 02/08/2018 Secondary NOT GIVENUNK [place] Insurance:SELF PAY [facility] Number: Effective Repository Date:2018-01-29 02/05/2018 LOVELY SINGH Primary LOVELY [place] Sr[address] Insurance:MEDICARE Sr.: [place] PART A [facility] [id number] Hospital [address]Uzq: (330) Number: Repository [phone] () [id number] Date:2018-02-05 02/05/2018 Secondary NOT GIVENUNK [place] Insurance:SELF PAY [facility] Number: Effective Repository Date:2018-02-05 01/28/2018 LOVELY SINGH Primary LOVELY [place] Sr[address] Insurance:MEDICARE Sr.: [place] PART A [facility] [id number] Hospital [address]Qcz: (330) Number: Repository [phone] () [id number] Date:2018-01-28 01/28/2018 Secondary NOT GIVENUNK [place] Insurance:SELF PAY [facility] Number: Effective Repository Date:2018-01-28 01/27/2018 LOVELY SINGH Primary LOVELY [place] Sr[address] Insurance:MEDICARE Sr.: [place] PART A [facility] [id number] Hospital [address]Non: (330) Number: Repository [phone] () [id number] Date:2018-01-27 01/27/2018 Secondary NOT GIVENUNK [place] Insurance:SELF PAY [facility] Number: Effective Repository Date:2018-01-27 01/09/2018 LOVELY SINGH Primary LOVELY [place] Sr[address] Insurance:MEDICARE Sr.: [place] PART A [facility] [id number] Hospital [address]Sgt: (330) Number: Repository [phone] () [id number] Date:2018-01-02 01/09/2018 Secondary NOT GIVENUNK [place] Insurance:SELF PAY [facility] Number: Effective Repository Date:2018-01-02 12/18/2017 LOVELY SINGH Primary LOVELY SINGH [place] Sr[address] Insurance:MEDICARE Sr.: [place] PART A [facility] [id number] Hospital [address]Swl: (330) Number: Repository [phone] () [id number] Date:2017-11-03 12/18/2017 Secondary NOT GIVENUNK [place] Insurance:SELF PAY [facility] Effective Repository Date:2017-11-03 12/05/2017 LOVELY SINGH Primary LOVELY SINGH [place] Sr[address] Insurance:MEDICARE Sr.: [place] PART A [facility] [id number] Hospital [address]Ctz: (330) Number: Repository [phone] () [id number] Date:2017-06-05 12/05/2017 Secondary LOVELY SAMANTHA [place] Insurance:AETNA Sr.: [facility] SUPPLEMENT [facility] [id number] Hospital Number: Repository [id number] Date:[id number] SENIOR SUPPLEMENT [address] [place] [id number]: 12/05/2017 Tertiary NOT GIVENUNK [place] Insurance:SELF PAY [facility] Number: Effective Repository Date:2017-12-05 10/14/2017 LOVELY SINGH Primary LOVELY [place] Sr[address] Insurance:MEDICARE Sr.: [place] PART A [facility] [id number] Hospital [address]Dgx: (330) Number: Repository [phone] () [id number] Date:2017-10-14 10/14/2017 Secondary NOT GIVENUNK [place] Insurance:SELF PAY [facility] Number: Effective Repository Date:2017-10-14 10/14/2017 LOVELY SINGH Primary LOVELY SINGH [place] Sr[address] Insurance:MEDICARE Sr.: [place] PART A [facility] [id number] Hospital [address]Lhy: (330) Number: Repository [phone] () [id number] Date:2017-10-14 10/14/2017 Secondary NOT GIVENUNK [place] Insurance:SELF PAY [facility] Number: Effective Repository Date:2017-10-14 10/14/2017 LOVELY SINGH[address] Primary LOVELY SINGHDOB: [place], Insurance:MEDICARE [id number] On license of [facility] [address]Vnk: PART A [facility] Number: Repository () [id number] Date:2017-10-14 10/14/2017 Secondary NOT GIVENUNK [place] Insurance:SELF PAY [facility] Number: Effective Repository Date:2017-10-14 10/14/2017 LOVELY SINGH Primary LOVELY SINGH [place] Sr[address] Insurance:MEDICARE Sr.: [place] PART A [facility] [id number] Hospital [address]Brt: (330) Number: Repository [phone] () [id number] Date:2017-10-14 10/14/2017 Secondary NOT GIVENUNK [place] Insurance:SELF PAY [facility] Number: Effective Repository Date:2017-10-14 10/14/2017 LOVELY SINGH Primary LOVELY SINGH [place] Sr[address] Insurance:MEDICARE Sr.: [place] PART A [facility] [id number] Hospital [address]Muj: (330) Number: Repository [phone] () [id number] Date:2017-10-14 10/14/2017 Secondary NOT GIVENUNK [place] Insurance:SELF PAY [facility] Number: Effective Repository Date:2017-10-14 08/06/2017 LOVELY SINGH[address] Primary LOVELY SINGHDOB: [place], Insurance:MEDICARE [id number] On license of [facility] [address]Wns: PART A [facility] Number: Repository () [id number] Date:2017-08-05 08/06/2017 Secondary NOT GIVENUNK [place] Insurance:SELF PAY [facility] Number: Effective Repository Date:2017-08-05 08/05/2017 LOVELY SINGH[address] Primary LOVELY SINGHDOB: [place], Insurance:MEDICARE [id number] [address]Wrr: PART A [facility] Number: Repository () [id number] Date:2017-08-05 08/05/2017 Secondary NOT GIVENUNK [place] Insurance:SELF PAY [facility] Number: Effective Repository Date:2017-08-05 06/05/2017 LOVELY DIAS [address] Primary LOVELY SINGHDOB: [place], Insurance:MEDICARE [id number] [address]Maq: PART A [facility] Number: Repository () [id number] Date:2017-06-05 06/05/2017 Secondary NOT GIVENUNK [place] Insurance:SELF PAY [facility] Number: Effective Repository Date:2017-06-05 06/05/2017 LOVELY SINGH[address] Primary LOVELY SINGHDOB: [place], Insurance:MEDICARE [id number] [address]Qcw: PART A [facility] Number: Repository () [id number] Date:2017-05-16 06/05/2017 Secondary LOVELY SIMMONSB: [place] Insurance:AETNA [id number] Number: Repository [id number] Date:[id number] [facility] SUPPLEMENT [address] [address], [place] [address]XY: 06/05/2017 Tertiary NOT GIVENUNK [place] Insurance:SELF PAY [facility] Number: Effective Repository Date:2017-05-16
== END ==
PROVIDERS: Family Provider Family Medicine Geriatric Medicine; PCP Family Medicine Geriatric Medicine; Referring Provider Family Medicine Geriatric Medicine; Visit Provider Family Medicine Geriatric Medicine
DX: J40 Bronchitis, not specified as acute or chronic (principal); R68.83 Chills (without fever); R05 Cough
CPT/HCPCS: 71046; 87633

== ENCOUNTER → 2018-04-09 18:42 | Outpatient (CLI) | payer MEDICARE, SELFPAY | PROVIDERS: Family Provider Family Medicine Geriatric Medicine; PCP Family Medicine Geriatric Medicine; Referring Provider Family Medicine Geriatric Medicine; Visit Provider Family Medicine Geriatric Medicine | DX: R68.83 Chills (without fever) (principal) | CPT/HCPCS: 87633 ==

== ENCOUNTER → 2018-04-30 15:27 | Outpatient (CLI) | payer MEDICARE, SELFPAY ==
[2018-04-30 17:09] LABS: Absolute Lymphocyte Count 1.71 X10^3/ul (0.83-4.51); Absolute Neutrophil Count 2.9 X10^3/uL (2.0-7.7); Basophil# 0.01 X10^3/uL; Basophil% 0.2 % (0-1); Eosinophil# 0.65 X10^3/uL; Eosinophils% 11.5 % (0-5); Hematocrit 36.8 % (40-54); Hemoglobin 11.6 g/dl (13.0-16.5); Lymphocyte # 1.71 X10^3/ul (4.0); Lymphocyte % 30.3 % (19-41); Mean Corp Hgb Conc 31.5 g/gl (32-36); Mean Corpuscular Hgb 28.7 pg (27.0-32.0); Mean Corpuscular Volume 91.1 fL (80-94); Mean Platelet Vol. 10.6 fl (6.2-12.0); Monocyte# 0.42 X10^3/uL; Monocyte% 7.4 % (0-10); Neutrophil # 2.85 X10^3/uL (2.7-7.7); Neutrophil % 50.4 % (47-70); Platelet Count 187 K/mm3 (150-450); RBC Distribution Width SD 56.9 fl (35.1-43.9); Red Blood Count 4.04 M/mm3 (4.6-6.2); White Blood Count 5.7 K/mm3 (4.4-11.0)
[2018-04-30 17:14] LABS: POSITIVE COUNT NO; POSITIVE DIFFERENTIAL NO; POSITIVE MORPHOLOGY NO
[2018-04-30 17:17] LABS: Anion Gap 10 (5-15); BUN 18 mg/dL (7-18); Chloride 108 mmol/L (98-107); Creatinine, Serum 1.29 mg/dL (0.70-1.30); EST Glomerular Filtration Rate 57 mL/min (>60); Est Glom Filt Rate - Afr Amer 69 mL/min (>60); Glucose 94 mg/dL (74-106); Potassium 4.9 mmol/L (3.5-5.1); Sodium Level 142 mmol/L (136-145)
== END ==
PROVIDERS: Family Provider Family Medicine Geriatric Medicine; PCP Family Medicine Geriatric Medicine; Visit Provider Family Medicine Geriatric Medicine
DX: R60.9 Edema, unspecified (principal)
CPT/HCPCS: 36415; 80048; 85025

== ENCOUNTER → 2018-05-04 16:20 | Outpatient (CLI) | payer MEDICARE, SELFPAY ==
[2018-05-04 17:07] LABS: Absolute Lymphocyte Count 3.05 X10^3/ul (0.83-4.51); Basophil# 0.03 X10^3/uL; Basophil% 0.4 % (0-1); Eosinophil# 0.46 X10^3/uL; Eosinophils% 6.4 % (0-5); Hematocrit 38.2 % (40-54); Lymphocyte # 3.05 X10^3/ul (4.0); Lymphocyte % 42.6 % (19-41); Mean Corp Hgb Conc 31.4 g/gl (32-36); Mean Corpuscular Hgb 28.2 pg (27.0-32.0); Mean Corpuscular Volume 89.7 fL (80-94); Mean Platelet Vol. 10.3 fl (6.2-12.0); Monocyte# 0.63 X10^3/uL; Monocyte% 8.8 % (0-10); Neutrophil # 2.98 X10^3/uL (2.7-7.7); Neutrophil % 41.7 % (47-70); POSITIVE COUNT NO; POSITIVE DIFFERENTIAL NO; POSITIVE MORPHOLOGY NO; Platelet Count 226 K/mm3 (150-450); RBC Distribution Width CV 16.5 % (11.6-14.6); RBC Distribution Width SD 53.4 fl (35.1-43.9); Red Blood Count 4.26 M/mm3 (4.6-6.2); White Blood Count 7.2 K/mm3 (4.4-11.0)
[2018-05-04 17:41] LABS: ALB/GLOB Ratio 0.6 RATIO (0.9-2.4); AST(SGOT) 28 U/L (15-37); Alanine Aminotransfer ALT/SGPT 32 U/L (16-61); Albumin, Serum 2.8 g/dL (3.2-5.0); Alkaline Phosphatase 91 U/L (45-117); Anion Gap 11 (5-15); BUN 21 mg/dL (7-18); BUN/Creat Ratio 14.1 RATIO (10-20); Calcium,Total 9.1 mg/dL (8.5-10.1); Chloride 107 mmol/L (98-107); Creatinine, Serum 1.49 mg/dL (0.70-1.30); EST Glomerular Filtration Rate 48 mL/min (>60); Est Glom Filt Rate - Afr Amer 58 mL/min (>60); Globulin 4.8 g/dL (2.2-4.2); Glucose 95 mg/dL (74-106); Protein, Total 7.6 g/dL (6.4-8.2); Sodium Level 143 mmol/L (136-145); Thyroid Stim Hormone (TSH) 1.45 uIU/mL (0.358-3.74); Uric Acid 7.4 mg/dL (3.5-7.2)
[2018-05-04 17:51] LABS: Vitamin D,25 Hydroxy 17.8 ng/mL (29.95-100.01)
== END ==
PROVIDERS: Family Provider Family Medicine Geriatric Medicine; PCP Family Medicine Geriatric Medicine; Visit Provider Family Medicine Geriatric Medicine
DX: I10 Essential (primary) hypertension (principal); M10.9 Gout, unspecified; E55.9 Vitamin D deficiency, unspecified
CPT/HCPCS: 36415; 80053; 82306; 84443; 84550; 85025

== ENCOUNTER → 2018-05-05 12:20 | Outpatient (CLI) | payer MEDICARE, OTHER, SELFPAY ==
--- NOTE | 2018-05-05 12:25 | VDLE_ITS ---
Reason For Study: edema RIGHT LEFT GSV is normal. GSV is normal. CFV is compressible, spontaneous, phasic, CFV is compressible, spontaneous, phasic, competent and demonstrates normal competent, and demonstrates normal augmentation. augmentation. FV is compressible, spontaneous, phasic, FV is compressible, spontaneous, phasic, competent and demonstrates normal competent and demonstrates normal augmentation. augmentation. POP V is compressible, spontaneous, phasic, T/P Trunk is compressible. competent and demonstrates normal PTV is compressible. augmentation. LT PerV is compressible. T/P Trunk is compressible. POP V is patent, compressible, spontaneous, PTV is compressible. phasic and demonstrate incompetency with RT PerV is compressible. augmentation. Procedure Exam performed in department. The exam was diagnostic. Limited views if calf veins due to edema. A preliminary report was called and/or faxed to Dr. Tello's office. Interpretation Summary Deep veins of the lower extremities are bilaterally patent and compressible segmentally. There is no evidence of deep vein thrombosis on either side. Valvular competence appears intact within the proximal deep venous system on the right . On the left, the popliteal vein is incompetent. The greater saphenous veins appear bilaterally patent and compressible segmentally. Ordering Physician: Ashvin Tello Performed By: Yosvany Johansen RVT
--- NOTE | 2018-05-05 13:08 | CT_ITS ---
STUDY: CT RIGHT TIBIA AND FIBULA WITH CONTRAST REASON FOR EXAM: Male, 82 years old. Sores of the lower leg and ankle being treated at wound Center RADIATION DOSAGE (If Supplied By Facility): CTDIvol = ( 15.35 ) mGy, DLP = ( 986.99 ) mGycm TECHNIQUE: Transaxial CT imaging of the lower leg was performed post contrast administration. The examination was performed with intravenous administration of 100 ml of Isovue 300 contrast material. Sagittal and coronal images were reconstructed. Individualized dose optimization techniques were used for this CT. COMPARISON: None. FINDINGS: No acute fracture of the tibia or fibula. There is arthritic change at the knee with spurring and joint effusion. There is skin thickening and subcutaneous edema at the anterior aspect of the lower leg and the dorsum of the foot. There is no enhancing mass or fluid collection. Normal musculature. There are atherosclerotic calcifications. CT/Extremity Lower WITH Contrast IMPRESSION: Subcutaneous edema and skin thickening. No abscess or fluid collection. No fracture or periosteal reaction. Electronically Signed: Robert Baca MD at 17:55 EST , Service support ,
== END ==
PROVIDERS: Family Provider Family Medicine Geriatric Medicine; PCP Family Medicine Geriatric Medicine; Referring Provider Family Medicine Geriatric Medicine; Visit Provider Family Medicine Geriatric Medicine
DX: R60.0 Localized edema (principal); M79.609 Pain in unspecified limb
CPT/HCPCS: 73701; 93970; Q9967

== ENCOUNTER 2018-05-10 10:22 | Inpatient (IN) | payer MEDICARE, OTHER, SELFPAY ==
[2018-05-10] VITALS (11 sets, daily range): BP systolic 130–160; BP diastolic 73–91; PULSE 71–84; RESP 18–26; TEMP 36.7–37.1; O2SAT 95–100; BMI 35.2; BMI 34.9; BMI 35.0
--- NOTE | 2018-05-10 10:36 | EKG12_ITS ---
Test Reason : CP Blood Pressure : / mmHG Vent. Rate : 083 BPM Atrial Rate : 083 BPM P-R Int : 170 ms QRS Dur : 104 ms QT Int : 380 ms P-R-T Axes : 032 -42 -24 degrees QTc Int : 446 ms Normal sinus rhythm Left axis deviation Pulmonary disease pattern Incomplete right bundle branch block Minimal voltage criteria for LVH, may be normal variant Abnormal ECG Confirmed by ALEXANDER GARZON, KWESI ([id number]), fashion editor ISABELLE WYMAN ([id number]) on 05/15/2018 9:03:00 AM Referred By: NELLY Confirmed By:KWESI MUNOZ MD
--- NOTE | 2018-05-10 10:36 | RAD_ITS ---
STUDY: X-RAY CHEST REASON FOR EXAM: Male, 82 years old. Chest pain TECHNIQUE: AP COMPARISON: 03/17/2018 FINDINGS: Lungs continue to be hypoinflated with bibasilar atelectasis or fibrotic scarring, stable. There is no demonstrated pleural abnormality. There is mild cardiac enlargement. Sternal wires and mediastinal surgical clips compatible with prior CABG. Normal visualized pulmonary arteries. Normal visualized aortic arch and descending thoracic aorta. No acute bony process. There is no demonstrated abnormality of the visualized soft tissue structures of the upper abdomen. RAD/Chest 1 View (Portable) IMPRESSION: Stable, nonacute portable x-ray examination of the chest. Electronically Signed: Jermaine Lawler MD at 11:03 EST , Service support ,
--- NOTE | 2018-05-10 10:50 | ED.DCSUM_ITS ---
- ER Visit Summary Date of Service: 05/10/18 Chief Complaint: Body aches, chest pain, leg wounds History of Present Illness: The patient is a 82 M reports body aches, chest pain since yesterday. He states he is not felt well recently in general. He has had a cough and was recently diagnosed with bronchitis. He is currently on antibiotics for leg infection. It does appear the patient had a CT scan of his lower leg less than 1 week ago that showed skin thickening but no evidence of abscess. Patient has history of coronary disease with cardiac bypass, CHF, hypertension, high cholesterol, prior stroke, and pulmonary embolism. He does continue to take Coumadin. Physical Examination: Vital signs are remarkable only for respiratory rate of 26. Patient is lying in bed no acute distress. He speaking full sentences. Head neck examination is unremarkable. Heart is regular rate and rhythm. Lungs sounds are diminished at the bases. He does have anterior chest wall tenderness that re-creates his pain. There is no crepitus. Abdomen is soft with mild epigastric tenderness. No guarding or rebound. Active bowel sounds noted throughout. Lower extremity examination reveals 2+ edema to the bilateral ankles that is symmetric. He has right lower leg wounds with clean edges. There is mild surrounding erythema. There is mild erythema noted to the anterior left lower salgado without evidence of skin breakdown. Test Results: EKG is sinus 83 with no sign of acute ischemia. He has an intraventricular conduction delay noted that is unchanged when compared to prior. Portable chest x-ray shows stable nonacute chest. CBC was normal white count with hemoglobin 11.5. Chemistry studies unremarkable. INR is supratherapeutic at 4.1. Initial troponin is 0.027. Emergency Department Course and Treatment: Patient was given aspirin. On repeat evaluation patient states he has no pain now that he is wrapped in warm blankets. I did review prior records and he did have a stress test in September 2017. He was wishing to go home, but in light of his prior cardiac disease we did agree to repeat troponin and repeat EKG. Repeat EKG is unchanged, however repeat troponin is now 0.430. On repeat evaluation at this time he does describe some slight chest tightness. He will be given nitro to see if this helps relieve the pain. He will be admitted for further treatment and evaluation. Treatment Plan: [] Disposition: Admit Impression: 1. Chest pain/NSTEMI 2. Supratherapeutic INR 3. Chronic lower leg wounds/cellulitis This note was generated with [employer] dictation software. It may contain incorrect words, spelling, and punctuation that were not noted in review of the chart prior to signing ED Disposition - Plan for ED Patient: Referrals: Ashvin Tello Chi, MD [Primary Care Provider] -
[2018-05-10 11:02] LABS: Absolute Lymphocyte Count 1.84 X10^3/ul (0.83-4.51); Absolute Neutrophil Count 4.1 X10^3/uL (2.0-7.7); Basophil# 0.02 X10^3/uL; Basophil% 0.3 % (0-1); Eosinophil# 0.26 X10^3/uL; Eosinophils% 3.8 % (0-5); Hemoglobin 11.5 g/dl (13.0-16.5); Lymphocyte # 1.84 X10^3/ul (4.0); Lymphocyte % 26.8 % (19-41); Mean Corp Hgb Conc 31.9 g/gl (32-36); Mean Corpuscular Hgb 28.8 pg (27.0-32.0); Mean Platelet Vol. 9.7 fl (6.2-12.0); Monocyte# 0.61 X10^3/uL; Monocyte% 8.9 % (0-10); Neutrophil # 4.12 X10^3/uL (2.7-7.7); Neutrophil % 60.1 % (47-70); Platelet Count 229 K/mm3 (150-450); RBC Distribution Width CV 16.4 % (11.6-14.6); RBC Distribution Width SD 53.1 fl (35.1-43.9); White Blood Count 6.9 K/mm3 (4.4-11.0)
[2018-05-10 11:03] LABS: POSITIVE COUNT NO; POSITIVE DIFFERENTIAL NO; POSITIVE MORPHOLOGY NO
[2018-05-10] MEDS: 0.9% Normal Saline 1,000 ML 15 ML IV (11:04)
[2018-05-10 11:09] LABS: International Normalized Ratio 4.1
--- NOTE | 2018-05-10 11:10 | NURSING ---
NOTIFIED OF PT/INR RESULTS
[2018-05-10 11:16] LABS: Anion Gap 7 (5-15); BUN 17 mg/dL (7-18); BUN/Creat Ratio 13.4 RATIO (10-20); Calcium,Total 8.9 mg/dL (8.5-10.1); Chloride 108 mmol/L (98-107); Creatinine, Serum 1.27 mg/dL (0.70-1.30); EST Glomerular Filtration Rate 58 mL/min (>60); Est Glom Filt Rate - Afr Amer 70 mL/min (>60); Estimated Creatinine Clearance 42.65 ml/min; Glucose 95 mg/dL (74-106); Potassium 4.4 mmol/L (3.5-5.1); Sodium Level 140 mmol/L (136-145)
--- NOTE | 2018-05-10 12:24 | EKG12_ITS ---
Test Reason : REPEAT Blood Pressure : / mmHG Vent. Rate : 072 BPM Atrial Rate : 072 BPM P-R Int : 184 ms QRS Dur : 102 ms QT Int : 404 ms P-R-T Axes : 030 -38 -18 degrees QTc Int : 442 ms Sinus rhythm with Premature atrial complexes Left axis deviation Abnormal ECG Confirmed by ALEXANDER GARZON, KWESI ([id number]), business editor ISABELLE WYMAN ([id number]) on 05/15/2018 9:03:46 AM Referred By: VIVIENNE Confirmed By:KWESI MUNOZ MD
[2018-05-10] MEDS: Aspirin 81 MG TAB.CHEW 324 MG PO (12:40)
--- NOTE | 2018-05-10 15:13 | PCM.HP.STD ---
Problem List (1) Unstable angina Status: Acute (2) Cellulitis Status: Acute Qualifiers: Site of cellulitis: extremity Site of cellulitis of extremity: lower extremity Laterality: unspecified laterality Qualified Code(s): L03.119 - Cellulitis of unspecified part of limb History of Present Illness Date of Admission: 05/10/18 Chief Complaint: Chest pain The patient is a 82 year old M who has not been feeling well but started experiencing chest pain yesterday. Patient described it is across his chest and also associated with malaise. Patient had recent been treated for lower extremity cellulitis. Patient said he had some blisters on his distal lower extremities and then subsequent redness. Patient presented to the emergency room with his chest pain complaint and underwent EKG that was unremarkable as well as initial troponin. Patient's chest pain was still ongoing and underwent a subsequent troponin that was positive at 0.4. Patient received a nitroglycerin. He is currently feeling better still having chest pain at this time. Patient does have a history of coronary artery disease with CABG and 8-10 stents. He cannot say that this is similar to his prior episodes of chest pain but it may be different. He does complain of some abdominal pain but does have a known hiatal hernia. Positive nausea. [] Past Medical History Past Medical History (Chronic Problems): Chronic Problems (Last Reviewed 10/14/17 @ 19:52 by Bobo Connell MD) Foraminal stenosis of lumbar region (Chronic) History of left heart catheterization (Chronic) Prior to CABG 09/12/2000 @ [facility]; 05/01/[address] Yancey @ [facility]; 08/27/2012 @ [facility] per Dr. Alcala Atherosclerotic heart disease of [place] coronary artery with other forms of angina pectoris (Chronic) CASTILLO graft to LAD, radial art graft to RCA, saphenous vein graft to CFX, saphenous vein graft to OM 1, OM 2 OTCAm 06/21/02 of distal & proximal RCA, PTCA with EASTON to proximal LAD 07/2012 Dizziness and giddiness (Chronic) Precordial chest pain (Chronic) Aortocoronary bypass status (Chronic) CABG 09/12/2000 X 5 vessels: CASTILLO to LAD,left radial artery to RCA, SVG to first snd second DX branches of the LAD and SVG to the lateral CX which 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) Right pulmonary embolus (Chronic) Stroke (Chronic) Hyperlipidemia (Chronic) Hypertension (Chronic) Medical History: Medical History (Last Reviewed 05/10/18 @ 15:16 by Ravi Tafoya DO) Atherosclerotic heart disease of [place] coronary artery with other forms of angina pectoris (Chronic) I25.118 CASTILLO graft to LAD, radial art graft to RCA, saphenous vein graft to CFX, saphenous vein graft to OM 1, OM 2 OTCAm 06/21/02 of distal & proximal RCA, PTCA with EASTON to proximal LAD 07/2012 Dizziness and giddiness (Chronic) R42 Precordial chest pain (Chronic) 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) Z79.899 Shortness of breath (Chronic) R06.02 Tricuspid valve disorder (Chronic) I07.9 Pulmonary hypertension (Chronic) I27.20 Congestive heart failure (Chronic) I50.9 Systolic dysfunction Family history of hypertension (Chronic) Z82.49 Atherosclerotic heart disease of [place] coronary artery without angina pectoris (Chronic) I25.10 Right pulmonary embolus (Chronic) I26.99 Stroke (Chronic) I63.9 Hyperlipidemia (Chronic) E78.5 Hypertension (Chronic) I10 Allergies diazepam [From Valium] Allergy (Intermediate, Verified 05/10/18 10:27) Other HALLUCINATIONS morphine Allergy (Intermediate, Verified 05/10/18 10:27) Other TWITCHES Home Medications: Ambulatory Orders Medication Instructions Recorded Aspirin [Aspirin, Baby] 81 mg PO DAILY@0800 06/23/13 Metoprolol(XL)Succ [Toprol Xl 50 mg PO DAILY 06/23/13 (Beta Luis Felipe)] Cetirizine HCl [Zyrtec] 10 mg PO DAILY 03/25/15 Finasteride [Proscar] 5 mg PO DAILY 03/25/15 Isosorbide Mononitrate [Isosorbide 60 mg PO DAILY 03/25/15 Mononitrate ER] Multivit-Min/FA/Lycopen/Lutein 1 ea PO DAILY 03/25/15 [Centrum Silver Tablet] atorvastatin 40 mg tablet 40 mg PO QHS tab 05/08/17 lubiprostone 24 mcg capsule 24 mcg PO BID cap 05/08/17 magnesium oxide 400 mg (241.3 mg 400 mg PO QDAY tab 05/08/17 magnesium) tablet pantoprazole 20 mg tablet,delayed 40 mg PO QDAY 05/08/17 release warfarin 5 mg tablet 5 mg PO .COMPLEX tab 06/05/17 furosemide 40 mg tablet 40 mg PO DAILY tab 12/05/17 tamsulosin 0.4 mg capsule 0.4 mg PO DAILY 30 Days #30 12/05/17 Albuterol IH (ProAir) [Proair Hfa 2 puff INHALATION Q4H PRN PRN 05/10/18 (SP)Vent Pts] Cephalexin [Keflex] 500 mg PO TID 05/10/18 Doxycycline 100 mg PO BID 05/10/18 Folic Acid 0.4 mg PO DAILY@0800 05/10/18 Travoprost 0.004% [Travatan-Z 1 drop EACH EYE QHS 05/10/18 0.004% Eye Drop] Varicella-Zoster Ge/As01b/Pf 50 mcg IM . DIRECTED 05/10/18 [Shingrix Vial Kit] Surgical History: Surgical History (Last Updated 05/10/18 @ 15:16 by Ravi Tafoya DO) History of left heart catheterization (Chronic) Z98.890 Prior to CABG 09/12/2000 @ [facility]; 05/01/[address] Yancey @ [facility]; 08/27/2012 @ [facility] per Dr. 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 Monet [facility] History of repair of hiatal hernia Z98.890, Z87.19 Surgical History: coronary bypass surgery, total hip arthroplasty, - - Hiatal hernia surgery. Smoking Status: Former smoker Tobacco Use: Non-smoker Alcohol: None Drugs: None - *Family History Maternal Family History: Family History (Last Reviewed 05/10/18 @ 15:16 by Ravi Tafoya DO) Father No problems noted. Mother Cancer Brother Throat cancer Brother COPD (chronic obstructive pulmonary disease) Brother No problems noted. Sister COPD (chronic obstructive pulmonary disease) Heart disease Sister COPD (chronic obstructive pulmonary disease) History Items: No pertinent history Paternal Family History: Family History (Last Reviewed 05/10/18 @ 15:16 by Ravi Tafoya DO) Father No problems noted. Mother Cancer Brother Throat cancer Brother COPD (chronic obstructive pulmonary disease) Brother No problems noted. Sister COPD (chronic obstructive pulmonary disease) Heart disease Sister COPD (chronic obstructive pulmonary disease) History Items: No pertinent history Review of Systems Constitutional: Reports: Malaise. Denies: Anorexia, Chills, Fever Eyes: Denies: Blurred vision, Double vision HEENT: Denies: Head Aches, Sinus Congestion, Sinus Drainage Cardiovascular: Reports: Chest Pain, Edema Respiratory: Reports: Shortness of Breath. Denies: Cough Gastrointestinal: Reports: Abdominal Pain, Constipation, Nausea. Denies: Vomiting Genitourinary: Denies: Dysuria Musculoskeletal: Denies: Joint Pain, Joint Tenderness Skin: Reports: - - Swelling and blisters of his lower extremities that opened up and subsequent redness. Neurological: Denies: Numbness, Tingling, Focal weakness Psychiatric: Denies: Anxiety, Depression Endocrine: Denies: Change in Body Habitus, Heat/ Cold Intolerance Hematologic/ Lymphatic: Reports: Hx of blood clot. Denies: Easy Bruising, Easy Bleeding Comment: A 10 point review of systems were negative except as mentioned in the history of present illness and the other review of systems. VTE Information - Inpt Only VTE Present on Admission: No VTE Mechan Device Prophylaxis: None VTE Pharm Prophylaxis ordered?: Yes Patient Problems: Active and Suspected Problems (Last Reviewed 10/14/17 @ 19:52 by Bobo Connell MD) Unstable angina (Acute) Cellulitis (Acute) - Physical Exam General: Alert, Cooperative, No apparent distress, - - Listless. Afebrile. Covered in blankets. HEENT: Atraumatic, Normocephalic, - - No scleral icterus Oral: Moist Mucosa, No Gingival or Mucosal Lesions/ Ulcerations, - - Dentures in place Neck: No Nodes, Thyroid Normal Size and Texture Lungs: Clear to auscultation, Normal air movement, No rhonchi, No wheeze Cardiovascular: Regular rate, Regular Rhythm, Normal S1, Normal S2, No murmurs Abdomen: Bowel Sounds Present, Soft, Non-Distended, No Hepato-splenomegaly, Tender - Epigastric Extremities: No Calf Tenderness, Edema Skin: - - Venous stasis dermatitis of lower extremities. Does have some faint erythema of the distal lower extremities. Some other skin tears are opened vesicles on the anterior shins. No purulence nor foul odor was appreciated. Musculoskeletal: No Tenderness to Palpation of Joints or Extremities, No Muscle Wasting Neurological: Deep Tendon Reflexes 2+/4 and Symmetrical, Neuro grossly intact, - - No clonus Psych/Mental Status: Normal Affect, Appropriate Vital Signs Temp Pulse Resp BP Pulse Ox 37.0 C 74 18 141/77 H 97 05/10/18 10:32 05/10/18 15:12 05/10/18 15:10 05/10/18 15:12 05/10/18 15:10 Oxygen Flow Rate (L/min) 2 Oxygen Delivery Method Room Air Weight: 102.058 kg Body Mass Index (BMI) 35.2 Laboratory Tests Past 24 Hrs 05/10/18 05/10/18 05/10/18 10:45 10:45 10:45 WBC 6.9 RBC 4.00 L Hgb 11.5 L Hct 36.0 L MCV 90.0 MCH 28.8 MCHC 31.9 L RDW 16.4 H RDW Differential 53.1 H Plt Count 229 MPV 9.7 Immature Gran % (Auto) 0.100 Neut % (Auto) 60.1 Lymph % (Auto) 26.8 Bowie % (Auto) 8.9 Eos % (Auto) 3.8 Baso % (Auto) 0.3 Absolute Neuts (auto) 4.1 Absolute Lymphs (auto) 1.84 Total Counted Not Reportable PT 40.0 H INR 4.1 H* Sodium 140 Potassium 4.4 Chloride 108 H Carbon Dioxide 25.0 Anion Gap 7 BUN 17 Creatinine 1.27 Estim Creat Clear Calc 42.65 Est GFR (MDRD) Af Amer 70 Est GFR (MDRD) Non-Af 58 L BUN/Creatinine Ratio 13.4 Glucose 95 Calcium 8.9 Troponin I 0.027 05/10/18 13:35 WBC RBC Hgb Hct MCV MCH MCHC RDW RDW Differential Plt Count MPV Immature Gran % (Auto) Neut % (Auto) Lymph % (Auto) Bowie % (Auto) Eos % (Auto) Baso % (Auto) Absolute Neuts (auto) Absolute Lymphs (auto) Total Counted PT INR Sodium Potassium Chloride Carbon Dioxide Anion Gap BUN Creatinine Estim Creat Clear Calc Est GFR (MDRD) Af Amer Est GFR (MDRD) Non-Af BUN/Creatinine Ratio Glucose Calcium Troponin I 0.430 H EKG personally reviewed and showed normal sinus rhythm with incomplete right bundle branch block T wave inversion V1. Unchanged from October 15, 2017. Chest x-ray reviewed and showed poor respiratory effort. No definitive infiltrates. Cardiomegaly. Assessment/Plan All Active Problems (Last Reviewed 10/14/17 @ 19:52 by Bobo Connell MD) Unstable angina (Acute) Cellulitis (Acute) Chest pain (Acute) Cellulitis and abscess of left lower extremity (Resolved) 1. Unstable angina Patient with known coronary disease with history of CASTILLO to the LAD, left radial to the right coronary, SVG to the first and second diagonal branch of the LAD and SVG to the lateral circumflex which has an aberrant origin from the RCA plus multiple stents Troponin is a slightly elevated at 0.43, up from 0.027 earlier today Patient already anticoagulated with an INR of 4.1. Continue with aspirin, metoprolol succinate Discussed with Dr. Carlton,, of cardiology, he stated that patient will be evaluated by cardiology service on the . Will place patient on Nitropatch. Patient is still having symptoms then we may need to initiate a nitroglycerin drip. 2. Bilateral lower extremity cellulitis Patient does have increased warmth. This may very well be cellulitis or just venous stasis dermatitis. Would continue with the doxycycline and Keflex as ordered as outpatient previously. Patient does have some opened vesicles versus skin tears on his shins, to which, I will have wound care evaluate. 3. Heart failure with preserved ejection fraction Patient does not appear to be an acute heart failure at this time. However, his weight has gone up 2 kg since. We will will place the patient on IV Lasix to facilitate further diuresis while he is inpatient. Once patient is euvolemic, I would anticipate patient being returned back to his oral Lasix. Will need to be determined if he is to resume his 40 mg daily or dosing or something else. 4. Venous thromboembolism Already anticoagulated on Coumadin 5. DVT prophylaxis: Patient is anticoagulated with a supratherapeutic INR. Discussed with the patient's family at bedside. All questions were answered. Code Visit Inpatient E&M: [id number] Init Hosp L3
--- NOTE | 2018-05-10 15:17 | HP.PCM_ITS ---
Problem List (1) Unstable angina Status: Acute (2) Cellulitis Status: Acute Qualifiers: Site of cellulitis: extremity Site of cellulitis of extremity: lower extremity Laterality: unspecified laterality Qualified Code(s): L03.119 - Cellulitis of unspecified part of limb History of Present Illness Date of Admission: 05/10/18 Chief Complaint: Chest pain The patient is a 82 year old M who has not been feeling well but started experiencing chest pain yesterday. Patient described it is across his chest and also associated with malaise. Patient had recent been treated for lower extremity cellulitis. Patient said he had some blisters on his distal lower extremities and then subsequent redness. Patient presented to the emergency room with his chest pain complaint and underwent EKG that was unremarkable as well as initial troponin. Patient's chest pain was still ongoing and underwent a subsequent troponin that was positive at 0.4. Patient received a nitroglycerin. He is currently feeling better still having chest pain at this time. Patient does have a history of coronary artery disease with CABG and 8-10 stents. He cannot say that this is similar to his prior episodes of chest pain but it may be different. He does complain of some abdominal pain but does have a known hiatal hernia. Positive nausea. [] Past Medical History Past Medical History (Chronic Problems): Chronic Problems (Last Reviewed 10/14/17 @ 19:52 by Bobo Connell MD) Foraminal stenosis of lumbar region (Chronic) History of left heart catheterization (Chronic) Prior to CABG 09/12/2000 @ [facility]; 05/01/[address] Yancey @ [facility]; 08/27/2012 @ [facility] per Dr. Alcala Atherosclerotic heart disease of [place] coronary artery with other forms of angina pectoris (Chronic) CASTILLO graft to LAD, radial art graft to RCA, saphenous vein graft to CFX, saphenous vein graft to OM 1, OM 2 OTCAm 06/21/02 of distal & proximal RCA, PTCA with EASTON to proximal LAD 07/2012 Dizziness and giddiness (Chronic) Precordial chest pain (Chronic) Aortocoronary bypass status (Chronic) CABG 09/12/2000 X 5 vessels: CASTILLO to LAD,left radial artery to RCA, SVG to first snd second DX branches of the LAD and SVG to the lateral CX which 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 Monet 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) Right pulmonary embolus (Chronic) Stroke (Chronic) Hyperlipidemia (Chronic) Hypertension (Chronic) Medical History: Medical History (Last Reviewed 05/10/18 @ 15:16 by Ravi Tafoya DO) Atherosclerotic heart disease of [place] coronary artery with other forms of angina pectoris (Chronic) I25.118 CASTILLO graft to LAD, radial art graft to RCA, saphenous vein graft to CFX, s aphenous vein graft to OM 1, OM 2 OTCAm 06/21/02 of distal & proximal RCA, PTCA with EASTON to proximal LAD 07/2012 Dizziness and giddiness (Chronic) R42 Precordial chest pain (Chronic) R07.2 senior living use of drug (Chronic) Z79.899 Shortness of breath (Chronic) R06.02 Tricuspid valve disorder (Chronic) I07.9 Pulmonary hypertension (Chronic) I27.20 Congestive heart failure (Chronic) I50.9 Systolic dysfunction Family history of hypertension (Chronic) Z82.49 Atherosclerotic heart disease of [place] coronary artery without angina pectoris (Chronic) I25.10 Right pulmonary embolus (Chronic) I26.99 Stroke (Chronic) I63.9 Hyperlipidemia (Chronic) E78.5 Hypertension (Chronic) I10 Allergies diazepam [From Valium] Allergy (Intermediate, Verified 05/10/18 10:27) Other HALLUCINATIONS morphine Allergy (Intermediate, Verified 05/10/18 10:27) Other TWITCHES Home Medications: Ambulatory Orders Medication Instructions Recorded Aspirin [Aspirin, Baby] 81 mg PO DAILY@0800 06/23/13 Metoprolol(XL)Succ [Toprol Xl 50 mg PO DAILY 06/23/13 (Beta Luis Felipe)] Cetirizine HCl [Zyrtec] 10 mg PO DAILY 03/25/15 Finasteride [Proscar] 5 mg PO DAILY 03/25/15 Isosorbide Mononitrate [Isosorbide 60 mg PO DAILY 03/25/15 Mononitrate ER] Multivit-Min/FA/Lycopen/Lutein 1 ea PO DAILY 03/25/15 [Centrum Silver Tablet] atorvastatin 40 mg tablet 40 mg PO QHS tab 05/08/17 lubiprostone 24 mcg capsule 24 mcg PO BID cap 05/08/17 magnesium oxide 400 mg (241.3 mg 400 mg PO QDAY tab 05/08/17 magnesium) tablet pantoprazole 20 mg tablet,delayed 40 mg PO QDAY 05/08/17 release warfarin 5 mg tablet 5 mg PO .COMPLEX tab 06/05/17 furosemide 40 mg tablet 40 mg PO DAILY tab 12/05/17 tamsulosin 0.4 mg capsule 0.4 mg PO DAILY 30 Days #30 12/05/17 Albuterol IH (ProAir) [Proair Hfa 2 puff INHALATION Q4H PRN PRN 05/10/18 (SP)Vent Pts] Cephalexin [Keflex] 500 mg PO TID 05/10/18 Doxycycline 100 mg PO BID 05/10/18 Folic Acid 0.4 mg PO DAILY@0800 05/10/18 Travoprost 0.004% [Travatan-Z 1 drop EACH EYE QHS 05/10/18 0.004% Eye Drop] Varicella-Zoster Ge/As01b/Pf 50 mcg IM . DIRECTED 05/10/18 [Shingrix Vial Kit] Surgical History: Surgical History (Last Updated 05/10/18 @ 15:16 by Ravi Tafoya DO) History of left heart catheterization (Chronic) Z98.890 Prior to CABG 09/12/2000 @ [facility]; 05/01/[address] Yancey @ [facility]; 08/27/2012 @ [facility] per Dr. 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 Monet [facility] History of repair of hiatal hernia Z98.890, Z87.19 Surgical History: coronary bypass surgery, total hip arthroplasty, - - Hiatal hernia surgery. Smoking Status: Former smoker Tobacco Use: Non-smoker Alcohol: None Drugs: None - *Family History Maternal Family History: Family History (Last Reviewed 05/10/18 @ 15:16 by Ravi Tafoya DO) Father No problems noted. Mother Cancer Brother Throat cancer Brother COPD (chronic obstructive pulmonary disease) Brother No problems noted. Sister COPD (chronic obstructive pulmonary disease) Heart disease Sister COPD (chronic obstructive pulmonary disease) History Items: No pertinent history Paternal Family History: Family History (Last Reviewed 05/10/18 @ 15:16 by Ravi Tafoya DO) Father No problems noted. Mother Cancer Brother Throat cancer Brother COPD (chronic obstructive pulmonary disease) Brother No problems noted. Sister COPD (chronic obstructive pulmonary disease) Heart disease Sister COPD (chronic obstructive pulmonary disease) History Items: No pertinent history Review of Systems Constitutional: Reports: Malaise. Denies: Anorexia, Chills, Fever Eyes: Denies: Blurred vision, Double vision HEENT: Denies: Head Aches, Sinus Congestion, Sinus Drainage Cardiovascular: Reports: Chest Pain, Edema Respiratory: Reports: Shortness of Breath. Denies: Cough Gastrointestinal: Reports: Abdominal Pain, Constipation, Nausea. Denies: Vomiting Genitourinary: Denies: Dysuria Musculoskeletal: Denies: Joint Pain, Joint Tenderness Skin: Reports: - - Swelling and blisters of his lower extremities that opened up and subsequent redness. Neurological: Denies: Numbness, Tingling, Focal weakness Psychiatric: Denies: Anxiety, Depression Endocrine: Denies: Change in Body Habitus, Heat/ Cold Intolerance Hematologic/ Lymphatic: Reports: Hx of blood clot. Denies: Easy Bruising, Easy Bleeding Comment: A 10 point review of systems were negative except as mentioned in the history of present illness and the other review of systems. VTE Information - Inpt Only VTE Present on Admission: No VTE Mechan Device Prophylaxis: None VTE Pharm Prophylaxis ordered?: Yes Patient Problems: Active and Suspected Problems (Last Reviewed 10/14/17 @ 19:52 by Bobo Connell MD) Unstable angina (Acute) Cellulitis (Acute) - Physical Exam General: Alert, Cooperative, No apparent distress, - - Listless. Afebrile. Covered in blankets. HEENT: Atraumatic, Normocephalic, - - No scleral icterus Oral: Moist Mucosa, No Gingival or Mucosal Lesions/ Ulcerations, - - Dentures in place Neck: No Nodes, Thyroid Normal Size and Texture Lungs: Clear to auscultation, Normal air movement, No rhonchi, No wheeze Cardiovascular: Regular rate, Regular Rhythm, Normal S1, Normal S2, No murmurs Abdomen: Bowel Sounds Present, Soft, Non-Distended, No Hepato-splenomegaly, T hallie - Epigastric Extremities: No Calf Tenderness, Edema Skin: - - Venous stasis dermatitis of lower extremities. Does have some faint erythema of the distal lower extremities. Some other skin tears are opened vesicles on the anterior shins. No purulence nor foul odor was appreciated. Musculoskeletal: No Tenderness to Palpation of Joints or Extremities, No Muscle Wasting Neurological: Deep Tendon Reflexes 2+/4 and Symmetrical, Neuro grossly intact, - - No clonus Psych/Mental Status: Normal Affect, Appropriate Vital Signs Temp Pulse Resp BP Pulse Ox 37.0 C 74 18 141/77 H 97 05/10/18 10:32 05/10/18 15:12 05/10/18 15:10 05/10/18 15:12 05/10/18 15:10 Oxygen Flow Rate (L/min) 2 Oxygen Delivery Method Room Air Weight: 102.058 kg Body Mass Index (BMI) 35.2 Laboratory Tests Past 24 Hrs 05/10/18 05/10/18 05/10/18 10:45 10:45 10:45 WBC 6.9 RBC 4.00 L Hgb 11.5 L Hct 36.0 L MCV 90.0 MCH 28.8 MCHC 31.9 L RDW 16.4 H RDW Differential 53.1 H Plt Count 229 MPV 9.7 Immature Gran % (Auto) 0.100 Neut % (Auto) 60.1 Lymph % (Auto) 26.8 [place] % (Auto) 8.9 Eos % (Auto) 3.8 Baso % (Auto) 0.3 Absolute Neuts (auto) 4.1 Absolute Lymphs (auto) 1.84 Total Counted Not Reportable PT 40.0 H INR 4.1 H* Sodium 140 Potassium 4.4 Chloride 108 H Carbon Dioxide 25.0 Anion Gap 7 BUN 17 Creatinine 1.27 Estim Creat Clear Calc 42.65 Est GFR (MDRD) Af Amer 70 Est GFR (MDRD) Non-Af 58 L BUN/Creatinine Ratio 13.4 Glucose 95 Calcium 8.9 Troponin I 0.027 05/10/18 13:35 WBC RBC Hgb Hct MCV MCH MCHC RDW RDW Differential Plt Count MPV Immature Gran % (Auto) Neut % (Auto) Lymph % (Auto) [place] % (Auto) Eos % (Auto) Baso % (Auto) Absolute Neuts (auto) Absolute Lymphs (auto) Total Counted PT INR Sodium Potassium Chloride Carbon Dioxide Anion Gap BUN Creatinine Estim Creat Clear Calc Est GFR (MDRD) Af Amer Est GFR (MDRD) Non-Af BUN/Creatinine Ratio Glucose Calcium Troponin I 0.430 H EKG personally reviewed and showed normal sinus rhythm with incomplete right bundle branch block T wave inversion V1. Unchanged from October 15, 2017. Chest x-ray reviewed and showed poor respiratory effort. No definitive infiltrates. Cardiomegaly. Assessment/Plan All Active Problems (Last Reviewed 10/14/17 @ 19:52 by Bobo Connell MD) Unstable angina (Acute) Cellulitis (Acute) Chest pain (Acute) Cellulitis and abscess of left lower extremity (Resolved) 1. Unstable angina Patient with known coronary disease with history of CASTILLO to the LAD, left radial to the right coronary, SVG to the first and second diagonal branch of the LAD and SVG to the lateral circumflex which has an aberrant origin from the RCA plus multiple stents Troponin is a slightly elevated at 0.43, up from 0.027 earlier today Patient already anticoagulated with an INR of 4.1. Continue with aspirin, metoprolol succinate Discussed with Dr. Carlton,, of cardiology, he stated that patient will be evaluated by cardiology service on the . Will place patient on Nitropatch. Patient is still having symptoms then we may need to initiate a nitroglycerin drip. 2. Bilateral lower extremity cellulitis Patient does have increased warmth. This may very well be cellulitis or just venous stasis dermatitis. Would continue with the doxycycline and Keflex as ordered as outpatient previously. Patient does have some opened vesicles versus skin tears on his shins, to which, I will have wound care evaluate. 3. Heart failure with preserved ejection fraction Patient does not appear to be an acute heart failure at this time. However, his weight has gone up 2 kg since. We will will place the patient on IV Lasix to facilitate further diuresis while he is inpatient. Once patient is euvolemic, I would anticipate patient being returned back to his oral Lasix. Will need to be determined if he is to resume his 40 mg daily or dosing or something else. 4. Venous thromboembolism Already anticoagulated on Coumadin 5. DVT prophylaxis: Patient is anticoagulated with a supratherapeutic INR. Discussed with the patient's family at bedside. All questions were answered. Code Visit Inpatient E&M: 39629 Init Hosp L3
--- NOTE | 2018-05-10 15:59 | EKG12_ITS ---
Test Reason : MORNING EKG Blood Pressure : / mmHG Vent. Rate : 071 BPM Atrial Rate : 071 BPM P-R Int : 198 ms QRS Dur : 104 ms QT Int : 430 ms P-R-T Axes : 018 -46 -29 degrees QTc Int : 467 ms Sinus rhythm with Premature atrial complexes Pulmonary disease pattern Incomplete right bundle branch block Left anterior fascicular block Minimal voltage criteria for LVH, may be normal variant ST & T wave abnormality, consider lateral ischemia Confirmed by ALEXNADER GARZON, KWESI ([id number]), acquisitions editor ISABELLE WYMAN ([id number]) on 05/19/2018 11:46:59 AM Referred By: KAITLYN Confirmed By:KWESI MNUOZ MD
--- NOTE | 2018-05-10 16:00 | ECHOCS_ITS ---
Reason For Study: ELEVATED TROPONIN Procedure This was a 2D Doppler, Color Flow transthoracic echocardiogram. Contrast injection was performed. The study was technically limited. Exam performed portable in patient room. Left Ventricle Normal LV size. Mild concentric left ventricular hypertrophy. Left ventricular systolic function is normal. The estimated ejection fraction is 65 %. No regional wall motion abnormalities noted. Right Ventricle Normal RV size. Normal systolic function. Atria The left atrium is mildly enlarged. Normal right atrium. Mitral Valve Normal mitral valve. Tricuspid Valve Normal tricuspid valve. Mild (1+) tricuspid valve insufficiency. Pulmonary artery systolic pressure is 38 mmHg. Aortic Valve Trisinus/trileaflet aortic valve. Mild (1+) aortic valve insufficiency. Pulmonic Valve Normal pulmonic valve. Great Vessels Normal aortic root. The pulmonary artery is normal size. Normal inferior vena cava. Pericardium/Pleural No pericardial effusion. Medication Diluted definity 3ml given slow IV push to enhance endocardial definition. MMode/2D Measurements & Calculations LVIDd: 3.4 cm IVSd: 1.4 cm Ao root diam: 3.7 cm LVIDs: 2.4 cm LVPWd: 1.1 cm FS: 29.2 % LAV(MOD-sp4): 61.0 ml LVAd ap4: 29.6 cm2 SV(MOD-sp4): 58.2 ml EDV(MOD-sp4): 85.0 ml EDV(sp4-el): 91.5 ml LVAs ap4: 14.4 cm2 ESV(MOD-sp4): 26.8 ml ESV(sp4-el): 26.5 ml EF(MOD-sp4): 68.5 % EF(sp4-el): 71.0 % SV(sp4-el): 65.0 ml LA A4 area: 21.7 cm2 LA dimension(2D): 3.8 cm RA A4 area: 17.8 cm2 Time Measurements MV dec time: 0.24 sec Doppler Measurements & Calculations MV E max mayank: 77.7 cm/sec Lat Peak E' Mayank: 9.4 cm/sec Med Peak E' Mayank: 5.2 cm/sec MV A max mayank: 75.1 cm/sec E/E' lat: 8.2 E/E' med: 14.9 MV E/A: 1.0 Ao V2 max: 150.4 cm/sec LV V1 max: 98.0 cm/sec TR max mayank: 292.6 cm/sec Ao max P.1 mmHg LV V1 max P.9 mmHg TR max P.3 mmHg Interpretation Summary The left atrium is mildly enlarged. Normal LV size. Mild concentric left ventricular hypertrophy. Left ventricular systolic function is normal. The estimated ejection fraction is 65 %. Pulmonary artery systolic pressure is 38 mmHg. Contrast injection was performed. Ordering Physician: Ravi Tafoya Referring Physician: LIAT CLARK [facility]I Performed By: Ciara Degroot, BRADLEY, RVT
--- NOTE | 2018-05-10 17:25 | NURSING ---
Lab phones with critical troponin of 0.852
[2018-05-10] MEDS: Nitroglycerin Oint 1 INCH PACKET TRANSDERM. (19:05)
[2018-05-10] MEDS: Furosemide 40 MG/4 ML Vial IV (19:07)
[2018-05-10] MEDS: Cephalexin 500 MG Capsule PO (21:15)
[2018-05-10] MEDS: Doxycycline 100 MG CAPSULE PO (21:15)
[2018-05-10] MEDS: Atorvastatin Calcium 40 MG Tablet PO (21:16)
[2018-05-10] MEDS: Latanoprost 0.005% 1 Bottle 1 DRP EACH EYE (21:16)
[2018-05-11] VITALS (16 sets, daily range): BP systolic 93–132; BP diastolic 51–69; PULSE 66–90; RESP 16–20; TEMP 36.6–37.2; O2SAT 92–100
[2018-05-11] MEDS: Nitroglycerin Oint 1 INCH PACKET TRANSDERM. ×3 (01:40→11:45)
[2018-05-11 05:51] LABS: Partial Thromboplast Time 64.5 Seconds (24.1-36.2); Prothrombin Time (Protime)PT. 35.8 SECONDS (11.7-14.9)
[2018-05-11 05:52] LABS: Absolute Lymphocyte Count 2.18 X10^3/ul (0.83-4.51); Absolute Neutrophil Count 4.2 X10^3/uL (2.0-7.7); Basophil# 0.03 X10^3/uL; Basophil% 0.4 % (0-1); Eosinophil# 0.31 X10^3/uL; Eosinophils% 4.3 % (0-5); Hematocrit 37.4 % (40-54); Hemoglobin 11.8 g/dl (13.0-16.5); Lymphocyte # 2.18 X10^3/ul (4.0); Lymphocyte % 30.2 % (19-41); Mean Corp Hgb Conc 31.6 g/gl (32-36); Mean Corpuscular Hgb 28.4 pg (27.0-32.0); Mean Corpuscular Volume 90.1 fL (80-94); Monocyte# 0.51 X10^3/uL; Monocyte% 7.1 % (0-10); Neutrophil # 4.17 X10^3/uL (2.7-7.7); Neutrophil % 57.9 % (47-70); Platelet Count 254 K/mm3 (150-450); RBC Distribution Width CV 16.4 % (11.6-14.6); RBC Distribution Width SD 53.1 fl (35.1-43.9); Red Blood Count 4.15 M/mm3 (4.6-6.2); White Blood Count 7.2 K/mm3 (4.4-11.0)
[2018-05-11 05:55] LABS: Anion Gap 9 (5-15); BUN 19 mg/dL (7-18); BUN/Creat Ratio 16.1 RATIO (10-20); Calcium,Total 9.3 mg/dL (8.5-10.1); Chloride 106 mmol/L (98-107); Cholesterol 125 mg/dL (200); Creatinine, Serum 1.18 mg/dL (0.70-1.30); EST Glomerular Filtration Rate 63 mL/min (>60); Est Glom Filt Rate - Afr Amer 76 mL/min (>60); Glucose 98 mg/dL (74-106); High Density Lipoprotein 48 mg/dL; Potassium 4.2 mmol/L (3.5-5.1); Sodium Level 141 mmol/L (136-145); Triglycerides 116 mg/dL; Very Low Density Lipoprotein 23 mg/dL (5-40)
[2018-05-11] MEDS: Cephalexin 500 MG Capsule PO ×3 (06:18→21:52)
[2018-05-11 06:24] LABS: International Normalized Ratio 3.6
[2018-05-11 06:25] LABS: POSITIVE COUNT NO; POSITIVE DIFFERENTIAL NO; POSITIVE MORPHOLOGY NO
--- NOTE | 2018-05-11 07:52 | PCM.CONS.C ---
Reason for Consult Date of Consultation: 05/11/18 Reason for Consultation: Chest pain and abnormal cardiac enzymes History of Present Illness: The patient is a 82 year old M who presented to the emergency room yesterday. He had been doing well and in his stable state of health until yesterday when he said he started having some chest discomfort. He thinks this has been going on for the last month or so however. He is also had some malaise. He says at times the chest pain is sharp. There was no radiation of the discomfort no dizziness or diaphoresis. He says that he had some improvement with sublingual nitroglycerin. He was admitted for further workup.He is a gentleman with a history of coronary artery disease status post coronary bypass surgery. 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 He denies any shortness breath or paroxysmal nocturnal dyspnea or pedal edema. 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 The CASTILLO to the LAD was minimally functional and he had an angioplasty and stenting to the left anterior descending artery. His last stress test was in 2018 with no obvious evidence of ischemia. Small amount of lateral humaira-infarct ischemia cannot be excluded he has had no neck arm or jaw discomfort suggest angina no dizziness no diaphoresis no near syncope or syncope. His physical exam today demonstrates clear lung colon regular rate and rhythm and no pedal edema. Past Medical History Allergies/Adverse Reactions: Allergies diazepam [From Valium] Allergy (Intermediate, Verified 05/10/18 10:27) Other HALLUCINATIONS morphine Allergy (Intermediate, Verified 05/10/18 10:27) Other TWITCHES Home Medications: Ambulatory Orders Medication Instructions Recorded Aspirin [Aspirin, Baby] 81 mg PO DAILY@0800 06/23/13 Metoprolol(XL)Succ [Toprol Xl 50 mg PO DAILY 06/23/13 (Beta Luis Felipe)] Cetirizine HCl [Zyrtec] 10 mg PO DAILY 03/25/15 Finasteride [Proscar] 5 mg PO DAILY 03/25/15 Isosorbide Mononitrate [Isosorbide 60 mg PO DAILY 03/25/15 Mononitrate ER] Multivit-Min/FA/Lycopen/Lutein 1 ea PO DAILY 03/25/15 [Centrum Silver Tablet] atorvastatin 40 mg tablet 40 mg PO QHS tab 05/08/17 lubiprostone 24 mcg capsule 24 mcg PO BID cap 05/08/17 magnesium oxide 400 mg (241.3 mg 400 mg PO QDAY tab 05/08/17 magnesium) tablet pantoprazole 20 mg tablet,delayed 40 mg PO DAILY 05/08/17 release warfarin 5 mg tablet 5 mg PO .COMPLEX tab 06/05/17 furosemide 40 mg tablet 40 mg PO DAILY tab 12/05/17 tamsulosin 0.4 mg capsule 0.4 mg PO DAILY 30 Days #30 12/05/17 Albuterol IH (ProAir) [Proair Hfa 2 puff INHALATION Q4H PRN PRN 05/10/18 (SP)Vent Pts] Cephalexin [Keflex] 500 mg PO TID 05/10/18 Doxycycline 100 mg PO BID 05/10/18 Folic Acid 0.4 mg PO DAILY@0800 05/10/18 Travoprost 0.004% [Travatan-Z 1 drop EACH EYE QHS 05/10/18 0.004% Eye Drop] Varicella-Zoster Ge/As01b/Pf 50 mcg IM . 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 Yancey @ [facility]; 08/27/[address] [facility] per Dr. 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 - *Family History Maternal Family History: Family History (Last Reviewed 05/10/18 @ 15:16 by Ravi Tafoya DO) Father No problems noted. Mother Cancer Brother Throat cancer Brother COPD (chronic obstructive pulmonary disease) Brother No problems noted. Sister COPD (chronic obstructive pulmonary disease) Heart disease Sister COPD (chronic obstructive pulmonary disease) History Items: No pertinent history Paternal Family History: Family History (Last Reviewed 05/10/18 @ 15:16 by Ravi Tafoya DO) Father No problems noted. Mother Cancer Brother Throat cancer Brother COPD (chronic obstructive pulmonary disease) Brother No problems noted. Sister COPD (chronic obstructive pulmonary disease) Heart disease Sister COPD (chronic obstructive pulmonary disease) History Items: No pertinent history Smoking Status: Former smoker Tobacco Use: Non-smoker Alcohol: None Drugs: None Review of Systems - Review of Systems General: Reports: Fatigue, Malaise. Denies: Fever, Night Sweats HEENT: Denies: Vision Change Cardiovascular: Denies: Chest Discomfort, Shortness of Breath, Orthopnea, PND, Peripheral Edema, Palpitations, Lightheadedness, Dizziness, Near Syncope, Syncope Respiratory: Denies: Cough, Sputum Production, Hemoptysis Gastrointestinal: Denies: Hematemesis, Hematochezia, Melena Genitourinary: Denies: Dysuria, Hematuria Skin: Denies: Rash Neurological: Denies: Dizziness Psychiatric: Denies: Anxiety Endocrine: Denies: Unexplained Weight Loss Hematologic/ Lymphatic: Denies: Anemia Subjectve: Pleasant gentleman in no apparent distress Objective: Vital Signs Temp Pulse Resp BP Pulse Ox 98.3 F 70 18 128/67 H 97 05/11/18 06:15 05/11/18 06:15 05/11/18 06:15 05/11/18 06:17 05/11/18 06:15 Oxygen Flow Rate (L/min) 2 Oxygen Delivery Method Room Air Weight: 222 lb 14.197 oz Body Mass Index (BMI) 34.9 Intake and Output for Last 24 Hours 05/09/18 05/10/18 05/11/18 23:59 23:59 23:59 Intake Total 250 / 250 360 / 360 Output Total 2425 / 2425 Balance 250 / 250 -2064 / -2064 General: Awake, Alert, Oriented x 3 HEENT: PERRL, EOMI, Sclera Non Icteric Neck: Supple, Good ROM, No Lymph Node Enlargement Lungs: Clear to auscultation Cardiovascular: Regular Rhythm, Normal S1, Normal S2, No Murmurs, No Rubs, No Gallops Vascular: No Carotid Bruits, Normal Femoral Pulses, Normal Radial Pulses, Normal Dorsalis Pedal Pulse, Normal Posterior Tibial Pulses Abdomen: Bowel Sounds Present, Soft, Non Tender, No HSM, No Organomegaly Extremities: No Cyanosis, No Clubbing, No edema Musculoskeletal: No Erythema Skin: No Rashes Lymphatic: No Lymph Node Enlargement Neurological: No Focal Motor or Sensory Deficit Psych/Mental Status: Appropriate 05/10/18 10:45: WBC 6.9, RBC 4.00 L, Hgb 11.5 L, Hct 36.0 L, MCV 90.0, MCH 28.8, MCHC 31.9 L, RDW 16.4 H, RDW Differential 53.1 H, Plt Count 229, MPV 9.7, Immature Gran % (Auto) 0.100, Neut % (Auto) 60.1, Lymph % (Auto) 26.8, [place] % (Auto) 8.9, Eos % (Auto) 3.8, Baso % (Auto) 0.3, Absolute Neuts (auto) 4.1, Total Counted Not Reportable 05/10/18 10:45: PT 40.0 H, INR 4.1 H* 05/10/18 10:45: Sodium 140, Potassium 4.4, Chloride 108 H, Carbon Dioxide 25.0, Anion Gap 7, BUN 17, Creatinine 1.27, Est GFR (MDRD) Af Amer 70, Est GFR (MDRD) Non-Af 58 L, BUN/Creatinine Ratio 13.4, Glucose 95, Calcium 8.9, Troponin I 0.027 05/10/18 13:35: Troponin I 0.430 H 05/10/18 16:26: Troponin I 0.852 H* 05/11/18 05:15: WBC 7.2, RBC 4.15 L, Hgb 11.8 L, Hct 37.4 L, MCV 90.1, MCH 28.4, MCHC 31.6 L, RDW 16.4 H, RDW Differential 53.1 H, Plt Count 254, MPV 10.0, Immature Gran % (Auto) 0.100, Neut % (Auto) 57.9, Lymph % (Auto) 30.2, [place] % (Auto) 7.1, Eos % (Auto) 4.3, Baso % (Auto) 0.4, Absolute Neuts (auto) 4.2, Total Counted Not Reportable 05/11/18 05:15: PT 35.8 H, INR 3.6 H*, APTT 64.5 H 05/11/18 05:15: Sodium 141, Potassium 4.2, Chloride 106, Carbon Dioxide 26.0, Anion Gap 9, BUN 19 H, Creatinine 1.18, Est GFR (MDRD) Af Amer 76, Est GFR (MDRD) Non-Af 63, BUN/Creatinine Ratio 16.1, Glucose 98, Calcium 9.3, Triglycerides 116, Cholesterol 125, LDL Cholesterol 54, VLDL Cholesterol 23, HDL Cholesterol 48 Rhythm: EKG: Normal sinus rhythm with T wave inversions noted inferiorly Assessment/Plan 1. Non-ST elevation myocardial infarction Patient presents with chest discomfort albeit atypical and has a non-ST elevation myocardial infarction. He underwent stress testing last year with no obvious ischemia. At this juncture it may be prudent to reevaluate his coronary anatomy. He is unfortunately on Coumadin due to previous pulmonary emboli and the recommendation would be to hold his Coumadin until his INR is close to therapeutic. Will obtain an echocardiogram on him today and then repeat his INR in the morning. It may be a few days before this. We will start him on isosorbide in the meantime. 2. Coronary artery disease The patient has known coronary artery disease as discussed above. This will be evaluated later this week. 3. Hypertension Patient's blood pressure is under excellent control at this particular time no other changes will be made 4. Hyperlipidemia Will continue with aggressive risk factor modification. Thank you for allowing me to participate in the care of your patient. Please don't hesitate to call if any issues arise
--- NOTE | 2018-05-11 07:56 | CON.PCM_ITS ---
Reason for Consult Date of Consultation: 05/11/18 Reason for Consultation: Chest pain and abnormal cardiac enzymes History of Present Illness: The patient is a 82 year old M who presented to the emergency room yesterday. He had been doing well and in his stable state of health until yesterday when he said he started having some chest discomfort. He thinks this has been going on for the last month or so however. He is also had some malaise. He says at times the chest pain is sharp. There was no radiation of the discomfort no dizziness or diaphoresis. He says that he had some improvement with sublingual nitroglycerin. He was admitted for further workup.He is a gentleman with a history of coronary artery disease status post coronary bypass surgery. 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 He denies any shortness breath or paroxysmal nocturnal dyspnea or pedal edema. 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 The CASTILLO to the LAD was minimally functional and he had an angioplasty and stenting to the left anterior descending artery. His last stress test was in 2018 with no obvious evidence of ischemia. Small amount of lateral humaira-infarct ischemia cannot be excluded he has had no neck arm or jaw discomfort suggest angina no dizziness no diaphoresis no near syncope or syncope. His physical exam today d emonstrates clear lung colon regular rate and rhythm and no pedal edema. Past Medical History Allergies/Adverse Reactions: Allergies diazepam [From Valium] Allergy (Intermediate, Verified 05/10/18 10:27) Other HALLUCINATIONS morphine Allergy (Intermediate, Verified 05/10/18 10:27) Other TWITCHES Home Medications: Ambulatory Orders Medication Instructions Recorded Aspirin [Aspirin, Baby] 81 mg PO DAILY@0800 06/23/13 Metoprolol(XL)Succ [Toprol Xl 50 mg PO DAILY 06/23/13 (Beta Luis Felipe)] Cetirizine HCl [Zyrtec] 10 mg PO DAILY 03/25/15 Finasteride [Proscar] 5 mg PO DAILY 03/25/15 Isosorbide Mononitrate [Isosorbide 60 mg PO DAILY 03/25/15 Mononitrate ER] Multivit-Min/FA/Lycopen/Lutein 1 ea PO DAILY 03/25/15 [Centrum Silver Tablet] atorvastatin 40 mg tablet 40 mg PO QHS tab 05/08/17 lubiprostone 24 mcg capsule 24 mcg PO BID cap 05/08/17 magnesium oxide 400 mg (241.3 mg 400 mg PO QDAY tab 05/08/17 magnesium) tablet pantoprazole 20 mg tablet,delayed 40 mg PO DAILY 05/08/17 release warfarin 5 mg tablet 5 mg PO .COMPLEX tab 06/05/17 furosemide 40 mg tablet 40 mg PO DAILY tab 12/05/17 tamsulosin 0.4 mg capsule 0.4 mg PO DAILY 30 Days #30 12/05/17 Albuterol IH (ProAir) [Proair Hfa 2 puff INHALATION Q4H PRN PRN 05/10/18 (SP)Vent Pts] Cephalexin [Keflex] 500 mg PO TID 05/10/18 Doxycycline 100 mg PO BID 05/10/18 Folic Acid 0.4 mg PO DAILY@0800 05/10/18 Travoprost 0.004% [Travatan-Z 1 drop EACH EYE QHS 05/10/18 0.004% Eye Drop] Varicella-Zoster Ge/As01b/Pf 50 mcg IM . 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 Yancey @ [facility]; 08/27/2012 @ [facility] per Dr. Alcala Atherosclerotic heart disease of [place] coronary artery with other forms of angina pectoris (Chronic) CASTILLO graft to LAD, radial art graft to RCA, saphenous vein graft to CFX, saphenous vein graft to OM 1, OM 2 OTCAm 06/21/02 of distal & proximal RCA, PTCA with [place] to proximal LAD 07/2012 Dizziness and giddiness (Chronic) Precordial chest pain (Chronic) Aortocoronary bypass status (Chronic) CABG 09/12/2000 X 5 vessels: CASTILLO to LAD,left radial artery to RCA, SVG to first snd second DX branches of the LAD and SVG to the lateral CX which 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 - *Family History Maternal Family History: Family History (Last Reviewed 05/10/18 @ 15:16 by Ravi Tafoya DO) Father No problems noted. Mother Cancer Brother Throat cancer Brother COPD (chronic obstructive pulmonary disease) Brother No problems noted. Sister COPD (chronic obstructive pulmonary disease) Heart disease Sister COPD (chronic obstructive pulmonary disease) History Items: No pertinent history Paternal Family History: Family History (Last Reviewed 05/10/18 @ 15:16 by Ravi Tafoya DO) Father No problems noted. Mother Cancer Brother Throat cancer Brother COPD (chronic obstructive pulmonary disease) Brother No problems noted. Sister COPD (chronic obstructive pulmonary disease) Heart disease Sister COPD (chronic obstructive pulmonary disease) History Items: No pertinent history Smoking Status: Former smoker Tobacco Use: Non-smoker Alcohol: None Drugs: None Review of Systems - Review of Systems General: Reports: Fatigue, Malaise. Denies: Fever, Night Sweats HEENT: Denies: Vision Change Cardiovascular: Denies: Chest Discomfort, Shortness of Breath, Orthopnea, PND, Peripheral Edema, Palpitations, Lightheadedness, Dizziness, Near Syncope, Syncope Respiratory: Denies: Cough, Sputum Production, Hemoptysis Gastrointestinal: Denies: Hematemesis, Hematochezia, Melena Genitourinary: Denies: Dysuria, Hematuria Skin: Denies: Rash Neurological: Denies: Dizziness Psychiatric: Denies: Anxiety Endocrine: Denies: Unexplained Weight Loss Hematologic/ Lymphatic: Denies: Anemia Subjectve: Pleasant gentleman in no apparent distress Objective: Vital Signs Temp Pulse Resp BP Pulse Ox 98.3 F 70 18 128/67 H 97 05/11/18 06:15 05/11/18 06:15 05/11/18 06:15 05/11/18 06:17 05/11/18 06:15 Oxygen Flow Rate (L/min) 2 Oxygen Delivery Method Room Air Weight: 222 lb 14.197 oz Body Mass Index (BMI) 34.9 Intake and Output for Last 24 Hours 05/09/18 05/10/18 05/11/18 23:59 23:59 23:59 Intake Total 250 / 250 360 / 360 Output Total 2425 / 2425 Balance 250 / 250 -2064 / -2064 General: Awake, Alert, Oriented x 3 HEENT: PERRL, EOMI, Sclera Non Icteric Neck: Supple, Good ROM, No Lymph Node Enlargement Lungs: Clear to auscultation Cardiovascular: Regular Rhythm, Normal S1, Normal S2, No Murmurs, No Rubs, No Gallops Vascular: No Carotid Bruits, Normal Femoral Pulses, Normal Radial Pulses, Normal Dorsalis Pedal Pulse, Normal Posterior Tibial Pulses Abdomen: Bowel Sounds Present, Soft, Non Tender, No HSM, No Organomegaly Extremities: No Cyanosis, No Clubbing, No edema Musculoskeletal: No Erythema Skin: No Rashes Lymphatic: No Lymph Node Enlargement Neurological: No Focal Motor or Sensory Deficit Psych/Mental Status: Appropriate 05/10/18 10:45: WBC 6.9, RBC 4.00 L, Hgb 11.5 L, Hct 36.0 L, MCV 90.0, MCH 28.8, MCHC 31.9 L, RDW 16.4 H, RDW Differential 53.1 H, Plt Count 229, MPV 9.7, Immature Gran % (Auto) 0.100, Neut % (Auto) 60.1, Lymph % (Auto) 26.8, [place] % (Auto) 8.9, Eos % (Auto) 3.8, Baso % (Auto) 0.3, Absolute Neuts (auto) 4.1, Total Counted Not Reportable 05/10/18 10:45: PT 40.0 H, INR 4.1 H* 05/10/18 10:45: Sodium 140, Potassium 4.4, Chloride 108 H, Carbon Dioxide 25.0, Anion Gap 7, BUN 17, Creatinine 1.27, Est GFR (MDRD) Af Amer 70, Est GFR (MDRD) Non-Af 58 L, BUN/Creatinine Ratio 13.4, Glucose 95, Calcium 8.9, Troponin I 0.027 05/10/18 13:35: Troponin I 0.430 H 05/10/18 16:26: Troponin I 0.852 H* 05/11/18 05:15: WBC 7.2, RBC 4.15 L, Hgb 11.8 L, Hct 37.4 L, MCV 90.1, MCH 28.4, MCHC 31.6 L, RDW 16.4 H, RDW Differential 53.1 H, Plt Count 254, MPV 10.0, Immature Gran % (Auto) 0.100, Neut % (Auto) 57.9, Lymph % (Auto) 30.2, [place] % (Auto) 7.1, Eos % (Auto) 4.3, Baso % (Auto) 0.4, Absolute Neuts (auto) 4.2, Total Counted Not Reportable 05/11/18 05:15: PT 35.8 H, INR 3.6 H*, APTT 64.5 H 05/11/18 05:15: Sodium 141, Potassium 4.2, Chloride 106, Carbon Dioxide 26.0, Anion Gap 9, BUN 19 H, Creatinine 1.18, Est GFR (MDRD) Af Amer 76, Est GFR (MDRD) Non-Af 63, BUN/Creatinine Ratio 16.1, Glucose 98, Calcium 9.3, Triglycerides 116, Cholesterol 125, LDL Cholesterol 54, VLDL Cholesterol 23, HDL Cholesterol 48 Rhythm: EKG: Normal sinus rhythm with T wave inversions noted inferiorly Assessment/Plan 1. Non-ST elevation myocardial infarction * Patient presents with chest discomfort albeit atypical and has a non-ST elevation myocardial infarction. * He underwent stress testing last year with no obvious ischemia. At this juncture it may be prudent to reevaluate his coronary anatomy. He is unfortunately on Coumadin due to previous pulmonary emboli and the recommendation would be to hold his Coumadin until his INR is close to therapeutic. * Will obtain an echocardiogram on him today and then repeat his INR in the morning. It may be a few days before this. We will start him on isosorbide in the meantime. * 2. Coronary artery disease * The patient has known coronary artery disease as discussed above. This will be evaluated later this week. * 3. Hypertension * Patient's blood pressure is under excellent control at this particular time no other changes will be made * 4. Hyperlipidemia * Will continue with aggressive risk factor modification. * * Thank you for allowing me to participate in the care of your patient. Please don't hesitate to call if any issues arise
[2018-05-11] MEDS: Pantoprazole Sodium 40 MG Tablet PO (09:34)
[2018-05-11] MEDS: Tamsulosin HCl 0.4 MG Capsule PO (09:34)
[2018-05-11] MEDS: Metoprolol(XL)Succ 50 MG Tablet PO (09:34)
[2018-05-11] MEDS: Magnesium Oxide 400 MG Tablet PO (09:35)
[2018-05-11] MEDS: Furosemide 40 MG/4 ML Vial IV (09:35)
[2018-05-11] MEDS: Isosorbide Mononitrate 60 MG Tablet PO (09:35)
[2018-05-11] MEDS: Loratadine 10 MG Tablet PO (09:35)
[2018-05-11] MEDS: Finasteride 5 MG Tablet PO (09:35)
[2018-05-11] MEDS: Aspirin 81 MG TAB.CHEW PO (09:35)
[2018-05-11] MEDS: Folic Acid 1 MG Tablet PO (09:35)
[2018-05-11] MEDS: Doxycycline 100 MG CAPSULE PO ×2 (09:35→21:51)
[2018-05-11] MEDS: Multivitamins,Ther W-Minerals Tablet 1 TABLET PO (09:35)
[2018-05-11] MEDS: 0.9% NaCl Peripheral Flush Adult/Peds IV ×4 (09:36→23:32)
--- NOTE | 2018-05-11 10:27 | NURSING ---
wound photo: right lower leg
--- NOTE | 2018-05-11 10:28 | NURSING ---
wound photo: left lower leg
--- NOTE | 2018-05-11 12:13 | PCM.PN.HOSP ---
Patient Problems: Active and Suspected Problems (Last Reviewed 05/10/18 @ 15:16 by Ravi Tafoya DO) Unstable angina (Acute) Cellulitis (Acute) Subjective: Patient is an 82-year-old gentleman with extensive past medical history including CAD status post CABG, pulmonary embolism on systemic anticoagulation with Coumadin who presented with chest pain. Admitted to a monitored bed subsequent serial cardiac enzymes consistent with acute non-STEMI consult placed to cardiology Objective: GENERAL: cooperative HEENT: Atraumatic; moist oral mucosa EYES; Anicteric, Normal Conjunctiva NECK; supple, normal thyroid, no distended JVD. RESPIRATORY: Diminished to auscultation bilaterally, CARDIOVASCULAR: Regular S1 S2, no audible murmurs GI: soft, non-tender, normoactive bowel sounds, : No Renal angle tenderness; EXTREMITIES: no clubbing, no cyanosis. MUSCULOSKELETAL: No Joint Tenderness; no muscle waisting NEURO: Awake; no lateralizing signs. SKIN: Bilateral lower extremity stasis dermatitis PSYCH; Normal affect Vitals/I&O's: Vital Signs Temp Pulse Resp BP Pulse Ox 98.4 F 74 16 108/51 L 92 05/11/18 11:32 05/11/18 11:45 05/11/18 11:32 05/11/18 11:45 05/11/18 11:32 Oxygen Flow Rate (L/min) 2 Oxygen Delivery Method Room Air Weight: 101.1 kg Body Mass Index (BMI) 34.9 Intake and Output for Last 24 Hours 05/09/18 05/10/18 05/11/18 23:59 23:59 23:59 Intake Total 250 / 250 660 / 660 Output Total 2425 / 2425 Balance 250 / 250 -1765 / -1765 Laboratory Results 05/10/18 13:35: Troponin I 0.430 H 05/10/18 16:26: Troponin I 0.852 H* 05/11/18 05:15: WBC 7.2, RBC 4.15 L, Hgb 11.8 L, Hct 37.4 L, MCV 90.1, MCH 28.4, MCHC 31.6 L, RDW 16.4 H, RDW Differential 53.1 H, Plt Count 254, MPV 10.0, Immature Gran % (Auto) 0.100, Neut % (Auto) 57.9, Lymph % (Auto) 30.2, [place] % (Auto) 7.1, Eos % (Auto) 4.3, Baso % (Auto) 0.4, Absolute Neuts (auto) 4.2, Absolute Lymphs (auto) 2.18, Total Counted Not Reportable 05/11/18 05:15: PT 35.8 H, INR 3.6 H*, APTT 64.5 H 05/11/18 05:15: Sodium 141, Potassium 4.2, Chloride 106, Carbon Dioxide 26.0, Anion Gap 9, BUN 19 H, Creatinine 1.18, Estim Creat Clear Calc 45.90, Est GFR (MDRD) Af Amer 76, Est GFR (MDRD) Non-Af 63, BUN/Creatinine Ratio 16.1, Glucose 98, Calcium 9.3, Triglycerides 116, Cholesterol 125, LDL Cholesterol 54, VLDL Cholesterol 23, HDL Cholesterol 48 Current Medications Albuterol Sulfate (Ventolin Aerosols) 2 mg INHALATION Q4H PRN PRN PRN Reason: WHEEZING Aspirin (Aspirin, Baby) 81 mg PO DAILY@0800 [facility] Last Admin: 05/11/18 09:35 Dose: 81 mg Atorvastatin Calcium (Lipitor) 40 mg PO QHS [facility] Last Admin: 05/10/18 21:16 Dose: 40 mg Cephalexin (Keflex) 500 mg PO TID [facility] Last Admin: 05/11/18 06:18 Dose: 500 mg Doxycycline Monohydrate (Doxycycline) 100 mg PO BID [facility] Last Admin: 05/11/18 09:35 Dose: 100 mg Finasteride (Proscar) 5 mg PO DAILY [facility] Last Admin: 05/11/18 09:35 Dose: 5 mg Folic Acid (Folic Acid) 1 mg PO DAILY@0800 [facility] Last Admin: 05/11/18 09:35 Dose: 1 mg Furosemide (Lasix) 40 mg IV BID@1000,1800 [facility] Last Admin: 05/11/18 09:35 Dose: 40 mg Isosorbide Mononitrate (Imdur) 60 mg PO DAILY [facility] Last Admin: 05/11/18 09:35 Dose: 60 mg Latanoprost (Xalatan Opthalmic) 1 drop EACH EYE QHS [facility] Last Admin: 05/10/18 21:16 Dose: 1 drop Loratadine (Claritin) 10 mg PO DAILY [facility] Last Admin: 05/11/18 09:35 Dose: 10 mg Magnesium Hydroxide (Milk Of Magnesia) 30 ml PO DAILY PRN PRN Reason: Constipation Magnesium Oxide (Mag-Ox 400) 400 mg PO DAILY [facility] Last Admin: 05/11/18 09:35 Dose: 400 mg Metoprolol Succinate (Toprol Xl (Beta Luis Felipe)) 50 mg PO DAILY [facility] Last Admin: 05/11/18 09:34 Dose: 50 mg Multivitamins/Minerals (Multivitamin With Minerals) 1 tablet PO DAILY@0800 [facility] Last Admin: 05/11/18 09:35 Dose: 1 tablet Nitroglycerin (Nitrostat) 0.4 mg SUBLINGUAL Q5M PRN PRN Reason: CHEST PAIN Nitroglycerin (Nitrobid) 1 inch TRANSDERM. Q6 [facility] Last Admin: 05/11/18 11:45 Dose: 1 inch Nutritional Formula (Lactose Free) (Ensure Enlive) 120 ml PO 4X/DAY [facility] Last Admin: 05/11/18 09:38 Dose: 120 ml Pantoprazole Sodium (Protonix) 40 mg PO DAILY [facility] Last Admin: 05/11/18 09:34 Dose: 40 mg Sodium Chloride () 5 - 15 ml IV UD PRN PRN Reason: SALINE FLUSH Last Admin: 05/11/18 09:36 Dose: 10 ml Tamsulosin HCl (Flomax) 0.4 mg PO DAILY [facility] Last Admin: 05/11/18 09:34 Dose: 0.4 mg Medical Necessity - Tobacco Use Smoking Status: Former smoker Tobacco Use: Non-smoker Assessment/Plan All Active Problems (Last Reviewed 05/10/18 @ 15:16 by Ravi Tafoya DO) Chest pain (Acute) Unstable angina (Acute) Cellulitis (Acute) Cellulitis and abscess of left lower extremity (Resolved) Patient is an 82-year-old gentleman with extensive past medical history including CAD status post CABG, pulmonary embolism on systemic anticoagulation with Coumadin who presented with chest pain. Admitted to a monitored bed subsequent serial cardiac enzymes consistent with acute non-STEMI consult placed to cardiology 1. Acute non-STEMI: Patient has been admitted to monitored bed where he is being managed per protocol so far with beta-blockade starting therapy and antiplatelet with aspirin. Patient was not placed on systemic anticoagulation since he is on Coumadin and INR was markedly elevated on admission. Patient is been seen by cardiology with plans for patient to undergo possible left heart cath. 2. 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 Monet [facility] 3. Hypertension-blood pressure controlled, home medications continued with dose adjustment as needed 4. Dyslipidemia-patient is on statin therapy, continued at home dose 5. BPH patient is on Proscar 6. History of pulmonary embolism on systemic anticoagulation with Coumadin INR on admission was 4.1, 3.6 as of 05/11/2018 7. Bilateral lower extremity cellulitis. This was felt to be venous stasis dermatitis by admitting physician however patient had been started on doxycycline as outpatient continued during his stay. 8. DVT prophylaxis on Coumadin no need for additional measures Active Medications Albuterol Sulfate (Ventolin Aerosols) 2 mg INHALATION Q4H PRN PRN PRN Reason: WHEEZING Aspirin (Aspirin, Baby) 81 mg PO DAILY@0800 [facility] Last Admin: 05/11/18 09:35 Dose: 81 mg Atorvastatin Calcium (Lipitor) 40 mg PO QHS [facility] Last Admin: 05/10/18 21:16 Dose: 40 mg Cephalexin (Keflex) 500 mg PO TID [facility] Last Admin: 05/11/18 06:18 Dose: 500 mg Doxycycline Monohydrate (Doxycycline) 100 mg PO BID [facility] Last Admin: 05/11/18 09:35 Dose: 100 mg Finasteride (Proscar) 5 mg PO DAILY [facility] Last Admin: 05/11/18 09:35 Dose: 5 mg Folic Acid (Folic Acid) 1 mg PO DAILY@0800 [facility] Last Admin: 05/11/18 09:35 Dose: 1 mg Furosemide (Lasix) 40 mg IV BID@1000,1800 [facility] Last Admin: 05/11/18 09:35 Dose: 40 mg Isosorbide Mononitrate (Imdur) 60 mg PO DAILY [facility] Last Admin: 05/11/18 09:35 Dose: 60 mg Latanoprost (Xalatan Opthalmic) 1 drop EACH EYE QHS [facility] Last Admin: 05/10/18 21:16 Dose: 1 drop Loratadine (Claritin) 10 mg PO DAILY [facility] Last Admin: 05/11/18 09:35 Dose: 10 mg Magnesium Hydroxide (Milk Of Magnesia) 30 ml PO DAILY PRN PRN Reason: Constipation Magnesium Oxide (Mag-Ox 400) 400 mg PO DAILY [facility] Last Admin: 05/11/18 09:35 Dose: 400 mg Metoprolol Succinate (Toprol Xl (Beta Luis Felipe)) 50 mg PO DAILY [facility] Last Admin: 05/11/18 09:34 Dose: 50 mg Multivitamins/Minerals (Multivitamin With Minerals) 1 tablet PO DAILY@0800 [facility] Last Admin: 05/11/18 09:35 Dose: 1 tablet Nitroglycerin (Nitrostat) 0.4 mg SUBLINGUAL Q5M PRN PRN Reason: CHEST PAIN Nitroglycerin (Nitrobid) 1 inch TRANSDERM. Q6 [facility] Last Admin: 05/11/18 11:45 Dose: 1 inch Nutritional Formula (Lactose Free) (Ensure Enlive) 120 ml PO 4X/DAY [facility] Last Admin: 05/11/18 09:38 Dose: 120 ml Pantoprazole Sodium (Protonix) 40 mg PO DAILY [facility] Last Admin: 05/11/18 09:34 Dose: 40 mg Sodium Chloride () 5 - 15 ml IV UD PRN PRN Reason: SALINE FLUSH Last Admin: 05/11/18 09:36 Dose: 10 ml Tamsulosin HCl (Flomax) 0.4 mg PO DAILY [facility] Last Admin: 05/11/18 09:34 Dose: 0.4 mg Clinical Impression(s) from Imaging Studies Chest X-Ray 05/10/18 10:36 IMPRESSION: Stable, nonacute portable x-ray examination of the chest. Electronically Signed: Jermaine Lawler MD at 11:03 EST , Service support , Code Visit Inpatient E&M: 01278 Subs Hosp L3
--- NOTE | 2018-05-11 14:39 | CASEMGMT ---
RN CM Assessment Presentation: pt presented with chest pain, lower extremity cellulitis. Possible plan for heart cathPt has been [facility] past. is able to assist with dressing changes if needed to be done @ home. Intro role of CM and purpose of RN CM assessment. PCP: Dr. Tello Preferred Pharmacy: [facility] Insurance: [facility] Prescription Benefit: yes LNOK: Marie Living Arrangements: one story home with ramp into home. Pt needs assist with bathing, ADL's. states she is able to assist him with these. She is willing to learn dressing changes to legs if needed. DME: shower chair, cane, walker, Cpap. No oxygen use. HHC: both pt and decline wanting home health care at this time. DC PLAN: Anticipate home on discharge.
--- NOTE | 2018-05-11 14:45 | CASEMGMT ---
SW spoke with patient and he said he does not have a Healthcare POA or Healthcare LW. He is not interested in documents. Latricia JON MSW
[2018-05-11] MEDS: Atorvastatin Calcium 40 MG Tablet PO (21:52)
[2018-05-11] MEDS: Latanoprost 0.005% 1 Bottle 1 DRP EACH EYE (21:52)
--- NOTE | 2018-05-11 23:08 | NURSING ---
Pharmacy contacted at this time d/t concern for interaction when ordering Toradol. An interaction came up with Aspirin. Ravi in pharmacy said since ASA and Toradol are both non-sterroidals, it could increase bleeding. Pharmacy notified that pt potentially having heart cath in the AM and that INR is already high. Ravi states that with it being a X1 dose of Toradol and 81 mg ASA, it will be okay.
[2018-05-11] MEDS: Ketorolac 30 MG/ML Syringe IV (23:24)
[2018-05-12] VITALS (17 sets, daily range): BP systolic 105–133; BP diastolic 55–74; PULSE 61–86; RESP 14–18; TEMP 36.7–36.8; O2SAT 91–97
[2018-05-12 01:05] LABS: Color, Urine Straw (Yellow); Glucose, Dipstick Normal (Normal); Ketone-Dipstick Negative (Negative); Leukocyte Esterase-Dipstick Negative /ul (Negative); Nitrite-Dipstick Negative (Negative); Occult Blood-Urine 250 /ul (Negative); Protein-Dipstick Negative (Negative); Urine Bilirubin Dipstick Negative (Negative); Urine Clarity Clear (Clear); Urine Urobilinogen Normal (Normal)
[2018-05-12 05:51] LABS: Absolute Lymphocyte Count 2.19 X10^3/ul (0.83-4.51); Basophil# 0.03 X10^3/uL; Basophil% 0.4 % (0-1); Eosinophils% 4.2 % (0-5); Hemoglobin 11.5 g/dl (13.0-16.5); Lymphocyte # 2.19 X10^3/ul (4.0); Lymphocyte % 30.4 % (19-41); Mean Corp Hgb Conc 31.9 g/gl (32-36); Mean Corpuscular Hgb 28.8 pg (27.0-32.0); Mean Platelet Vol. 9.4 fl (6.2-12.0); Monocyte# 0.68 X10^3/uL; Monocyte% 9.4 % (0-10); Neutrophil # 3.98 X10^3/uL (2.7-7.7); Neutrophil % 55.3 % (47-70); Platelet Count 242 K/mm3 (150-450); RBC Distribution Width CV 16.5 % (11.6-14.6); RBC Distribution Width SD 53.3 fl (35.1-43.9); White Blood Count 7.2 K/mm3 (4.4-11.0)
[2018-05-12 05:52] LABS: POSITIVE COUNT NO; POSITIVE DIFFERENTIAL NO; POSITIVE MORPHOLOGY NO
--- NOTE | 2018-05-12 05:55 | EKG12_ITS ---
Test Reason : AM EKG Blood Pressure : / mmHG Vent. Rate : 066 BPM Atrial Rate : 066 BPM P-R Int : 206 ms QRS Dur : 106 ms QT Int : 428 ms P-R-T Axes : 017 -40 -27 degrees QTc Int : 448 ms Normal sinus rhythm Left axis deviation Pulmonary disease pattern Minimal voltage criteria for LVH, may be normal variant Nonspecific T wave abnormality Abnormal ECG When compared with ECG of 10-MAY-2018 16:08, MANUAL COMPARISON REQUIRED, DATA IS UNCONFIRMED Confirmed by ALEXANDER GARZON, KWESI ([id number]), telegraph editor ISABELLE WYMAN ([id number]) on 05/15/2018 9:25:02 AM Referred By: DR VEGA Confirmed By:KWESI MUNOZ MD
[2018-05-12 05:59] LABS: Prothrombin Time (Protime)PT. 22.6 SECONDS (11.7-14.9)
[2018-05-12 06:07] LABS: Anion Gap 10 (5-15); BUN 28 mg/dL (7-18); BUN/Creat Ratio 20.1 RATIO (10-20); Chloride 103 mmol/L (98-107); Creatinine, Serum 1.39 mg/dL (0.70-1.30); EST Glomerular Filtration Rate 52 mL/min (>60); Est Glom Filt Rate - Afr Amer 63 mL/min (>60); Estimated Creatinine Clearance 38.97 ml/min; Glucose 94 mg/dL (74-106); Potassium 4.3 mmol/L (3.5-5.1); Sodium Level 140 mmol/L (136-145)
--- NOTE | 2018-05-12 06:38 | NURSING ---
Pt states he doesn't feel well this morning. States he feels worn out. States nothing in particular is bothering him. Pt seems drowsy. Vital signs stable.
[2018-05-12] MEDS: Nitroglycerin Oint 1 INCH PACKET TRANSDERM. ×4 (06:46→23:41)
[2018-05-12] MEDS: Cephalexin 500 MG Capsule PO ×3 (06:47→22:11)
--- NOTE | 2018-05-12 09:15 | PCM.PN.HOSP ---
Patient Problems: Active and Suspected Problems (Last Reviewed 05/10/18 @ 15:16 by Ravi Tafoya DO) Unstable angina (Acute) Cellulitis (Acute) Subjective: Patient seen complains of not feeling well however unable to pinpoint exactly what is wrong with him. INR is down to 2.0. Patient troponin repeated the day prior was trending down. Objective: GENERAL: cooperative HEENT: Atraumatic; moist oral mucosa EYES; Anicteric, Normal Conjunctiva NECK; supple, normal thyroid, no distended JVD. RESPIRATORY: Diminished to auscultation bilaterally, CARDIOVASCULAR: Regular S1 S2, no audible murmurs GI: soft, non-tender, normoactive bowel sounds, : No Renal angle tenderness; EXTREMITIES: no clubbing, no cyanosis. MUSCULOSKELETAL: No Joint Tenderness; no muscle waisting NEURO: Awake; no lateralizing signs. SKIN: Bilateral lower extremity stasis dermatitis PSYCH; Normal affect Vitals/I&O's: Vital Signs Temp Pulse Resp BP Pulse Ox 98.1 F 61 16 123/71 H 91 05/12/18 06:30 05/12/18 07:00 05/12/18 06:30 05/12/18 06:46 05/12/18 07:24 Oxygen Flow Rate (L/min) 95 Oxygen Delivery Method Room Air Weight: 102 kg Body Mass Index (BMI) 34.9 Intake and Output for Last 24 Hours 05/10/18 05/11/18 05/12/18 23:59 23:59 23:59 Intake Total 250 / 250 1030 / 1030 Output Total 3325 / 3325 0 / 0 Balance 250 / 250 -2295 / -2295 Laboratory Results 05/11/18 12:35: Troponin I 0.418 H 05/12/18 00:46: Urine Color Straw, Urine Clarity Clear, Urine pH 6.0, Ur Specific [place] 1.010, Urine Protein Negative, Urine Glucose (UA) Normal, Urine Ketones Negative, Urine Occult Blood 250 H, Urine Nitrite Negative, Urine Bilirubin Negative, Urine Urobilinogen Normal, Ur Leukocyte Esterase Negative 05/12/18 05:32: WBC 7.2, RBC 4.00 L, Hgb 11.5 L, Hct 36.0 L, MCV 90.0, MCH 28.8, MCHC 31.9 L, RDW 16.5 H, RDW Differential 53.3 H, Plt Count 242, MPV 9.4, Immature Gran % (Auto) 0.300, Neut % (Auto) 55.3, Lymph % (Auto) 30.4, [place] % (Auto) 9.4, Eos % (Auto) 4.2, Baso % (Auto) 0.4, Absolute Neuts (auto) 4.0, Absolute Lymphs (auto) 2.19, Total Counted Not Reportable 05/12/18 05:32: PT 22.6 H, INR 2.0, APTT 48.0 H 05/12/18 05:32: Sodium 140, Potassium 4.3, Chloride 103, Carbon Dioxide 27.0, Anion Gap 10, BUN 28 H, Creatinine 1.39 H, Estim Creat Clear Calc 38.97, Est GFR (MDRD) Af Amer 63, Est GFR (MDRD) Non-Af 52 L, BUN/Creatinine Ratio 20.1 H, Glucose 94, Calcium 9.0 Current Medications Albuterol Sulfate (Ventolin Aerosols) 2 mg INHALATION Q4H PRN PRN PRN Reason: WHEEZING Aspirin (Aspirin, Baby) 81 mg PO DAILY@0800 [facility] Last Admin: 05/11/18 09:35 Dose: 81 mg Atorvastatin Calcium (Lipitor) 40 mg PO QHS [facility] Last Admin: 05/11/18 21:52 Dose: 40 mg Cephalexin (Keflex) 500 mg PO TID [facility] Last Admin: 05/12/18 06:47 Dose: 500 mg Doxycycline Monohydrate (Doxycycline) 100 mg PO BID [facility] Last Admin: 05/11/18 21:51 Dose: 100 mg Finasteride (Proscar) 5 mg PO DAILY [facility] Last Admin: 05/11/18 09:35 Dose: 5 mg Folic Acid (Folic Acid) 1 mg PO DAILY@0800 [facility] Last Admin: 05/11/18 09:35 Dose: 1 mg Furosemide (Lasix) 40 mg IV BID@1000,1800 [facility] Last Admin: 05/11/18 17:29 Dose: Not Given Isosorbide Mononitrate (Imdur) 60 mg PO DAILY [facility] Last Admin: 05/11/18 09:35 Dose: 60 mg Latanoprost (Xalatan Opthalmic) 1 drop EACH EYE QHS [facility] Last Admin: 05/11/18 21:52 Dose: 1 drop Loratadine (Claritin) 10 mg PO DAILY [facility] Last Admin: 05/11/18 09:35 Dose: 10 mg Magnesium Hydroxide (Milk Of Magnesia) 30 ml PO DAILY PRN PRN Reason: Constipation Magnesium Oxide (Mag-Ox 400) 400 mg PO DAILY [facility] Last Admin: 05/11/18 09:35 Dose: 400 mg Metoprolol Succinate (Toprol Xl (Beta Luis Felipe)) 50 mg PO DAILY [facility] Last Admin: 05/11/18 09:34 Dose: 50 mg Multivitamins/Minerals (Multivitamin With Minerals) 1 tablet PO DAILY@0800 [facility] Last Admin: 05/11/18 09:35 Dose: 1 tablet Nitroglycerin (Nitrostat) 0.4 mg SUBLINGUAL Q5M PRN PRN Reason: CHEST PAIN Nitroglycerin (Nitrobid) 1 inch TRANSDERM. Q6 [facility] Last Admin: 05/12/18 06:46 Dose: 1 inch Nutritional Formula (Lactose Free) (Ensure Enlive) 120 ml PO 4X/DAY [facility] Last Admin: 05/11/18 23:34 Dose: 120 ml Pantoprazole Sodium (Protonix) 40 mg PO DAILY [facility] Last Admin: 05/11/18 09:34 Dose: 40 mg Sodium Chloride () 5 - 15 ml IV UD PRN PRN Reason: SALINE FLUSH Last Admin: 05/11/18 23:32 Dose: 10 ml Tamsulosin HCl (Flomax) 0.4 mg PO DAILY [facility] Last Admin: 05/11/18 09:34 Dose: 0.4 mg Medical Necessity - Tobacco Use Smoking Status: Former smoker Tobacco Use: Non-smoker Assessment/Plan All Active Problems (Last Reviewed 05/10/18 @ 15:16 by Ravi Tafoya DO) Chest pain (Acute) Unstable angina (Acute) Cellulitis (Acute) Cellulitis and abscess of left lower extremity (Resolved) Patient is an 82-year-old gentleman with extensive past medical history including CAD status post CABG, pulmonary embolism on systemic anticoagulation with Coumadin who presented with chest pain. Admitted to a monitored bed subsequent serial cardiac enzymes consistent with acute non-STEMI consult placed to cardiology 1. Acute non-STEMI: Patient has been admitted to monitored bed where he is being managed per protocol so far with beta-blockade starting therapy and antiplatelet with aspirin. Patient was not placed on systemic anticoagulation since he is on Coumadin and INR was markedly elevated on admission. Patient has been seen by cardiology with plans for patient to undergo possible left heart cath.. 2. 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 Monet [facility] 3. Hypertension-blood pressure controlled, home medications continued with dose adjustment as needed 4. Dyslipidemia-patient is on statin therapy, continued at home dose 5. BPH patient is on Proscar 6. History of pulmonary embolism on systemic anticoagulation with Coumadin INR on admission was 4.1, 3.6 as of 05/11/2018 7. Bilateral lower extremity cellulitis. This was felt to be venous stasis dermatitis by admitting physician however patient had been started on doxycycline as outpatient continued during his stay. 8. DVT prophylaxis on Coumadin no need for additional measures Code Visit Inpatient E&M: [id number] Subs Hosp L2
[2018-05-12] MEDS: Magnesium Oxide 400 MG Tablet PO (10:29)
[2018-05-12] MEDS: Folic Acid 1 MG Tablet PO (10:29)
[2018-05-12] MEDS: Finasteride 5 MG Tablet PO (10:29)
[2018-05-12] MEDS: Metoprolol(XL)Succ 50 MG Tablet PO (10:29)
[2018-05-12] MEDS: Isosorbide Mononitrate 60 MG Tablet PO (10:29)
[2018-05-12] MEDS: Doxycycline 100 MG CAPSULE PO ×2 (10:30→22:10)
[2018-05-12] MEDS: Multivitamins,Ther W-Minerals Tablet 1 TABLET PO (10:30)
[2018-05-12] MEDS: Pantoprazole Sodium 40 MG Tablet PO (10:30)
[2018-05-12] MEDS: Aspirin 81 MG TAB.CHEW PO (10:30)
[2018-05-12] MEDS: Loratadine 10 MG Tablet PO (10:30)
[2018-05-12] MEDS: Tamsulosin HCl 0.4 MG Capsule PO (10:30)
[2018-05-12] MEDS: 0.9% NaCl Peripheral Flush Adult/Peds IV (12:03)
[2018-05-12] MEDS: Furosemide 40 MG/4 ML Vial IV ×2 (12:03→17:04)
--- NOTE | 2018-05-12 16:44 | PN.CARD_ITS ---
Subjectve: Patient seen and evaluated. Has not had any chest pain. Objective: Vital Signs Temp Pulse Resp BP Pulse Ox 98.3 F 80 18 105/55 L 97 05/12/18 15:09 05/12/18 15:09 05/12/18 15:09 05/12/18 15:09 05/12/18 15:09 Oxygen Flow Rate (L/min) 95 Oxygen Delivery Method Room Air Weight: 224 lb 13.944 oz Body Mass Index (BMI) 34.9 Intake and Output for Last 24 Hours 05/10/18 05/11/18 05/12/18 23:59 23:59 23:59 Intake Total 250 / 250 1030 / 1030 510 / 510 Output Total 3325 / 3325 350 / 350 Balance 250 / 250 -2295 / -2295 160 / 160 General: Awake, Alert, Oriented x 3 HEENT: PERRL, EOMI, Sclera Non Icteric Neck: Supple, Good ROM, No Lymph Node Enlargement Lungs: Clear to auscultation Cardiovascular: Regular Rhythm, Normal S1, Normal S2, No Murmurs, No Rubs, No Gallops Vascular: No Carotid Bruits, Normal Femoral Pulses, Normal Radial Pulses, Normal Dorsalis Pedal Pulse, Normal Posterior Tibial Pulses Abdomen: Bowel Sounds Present, Soft, Non Tender, No HSM, No Organomegaly Extremities: No Cyanosis, No Clubbing, No edema Musculoskeletal: No Erythema Skin: No Rashes Lymphatic: No Lymph Node Enlargement Neurological: No Focal Motor or Sensory Deficit Psych/Mental Status: Appropriate 05/12/18 00:46: Urine Color Straw, Urine Clarity Clear, Urine pH 6.0, Ur Specific [place] 1.010, Urine Protein Negative, Urine Glucose (UA) Normal, Urine Ketones Negative, Urine Occult Blood 250 H, Urine Nitrite Negative, Urine Bilirubin Negative, Urine Urobilinogen Normal, Ur Leukocyte Esterase Negative 05/12/18 05:32: WBC 7.2, RBC 4.00 L, Hgb 11.5 L, Hct 36.0 L, MCV 90.0, MCH 28.8, MCHC 31.9 L, RDW 16.5 H, RDW Differential 53.3 H, Plt Count 242, MPV 9.4, Immature Gran % (Auto) 0.300, Neut % (Auto) 55.3, Lymph % (Auto) 30.4, [place] % (Auto) 9.4, Eos % (Auto) 4.2, Baso % (Auto) 0.4, Absolute Neuts (auto) 4.0, Total Counted Not Reportable 05/12/18 05:32: PT 22.6 H, INR 2.0, APTT 48.0 H 05/12/18 05:32: Sodium 140, Potassium 4.3, Chloride 103, Carbon Dioxide 27.0, Anion Gap 10, BUN 28 H, Creatinine 1.39 H, Est GFR (MDRD) Af Amer 63, Est GFR (MDRD) Non-Af 52 L, BUN/Creatinine Ratio 20.1 H, Glucose 94, Calcium 9.0 Medical Necessity - Tobacco Use Smoking Status: Former smoker Tobacco Use: Non-smoker Assessment/Plan 1. Non-ST elevation myocardial infarction * Patient presents with chest discomfort albeit atypical and has a non-ST elevation myocardial infarction. * He underwent stress testing last year with no obvious ischemia. At this juncture it may be prudent to reevaluate his coronary anatomy. He is unfortunately on Coumadin due to previous pulmonary emboli and the recommendation would be to hold his Coumadin until his INR is close to therapeutic. * For left heart catheterization in a.m. * His echocardiogram demonstrated preserved left ventricular systolic function estimated at 65% with no wall motion abnormalities present 2. Coronary artery disease * The patient has known coronary artery disease as discussed above. This will be evaluated later this week. * 3. Hypertension * Patient's blood pressure is under excellent control at this particular time no other changes will be made * 4. Hyperlipidemia * Will continue with aggressive risk factor modification. * * Thank you for allowing me to participate in the care of your patient. Please don't hesitate to call if any issues arise
[2018-05-12] MEDS: Latanoprost 0.005% 1 Bottle 1 DRP EACH EYE (22:11)
[2018-05-12] MEDS: Atorvastatin Calcium 40 MG Tablet PO (22:11)
[2018-05-13] VITALS (28 sets, daily range): BP systolic 98–154; BP diastolic 57–84; PULSE 61–81; RESP 16–27; TEMP 36.6–37; O2SAT 94–100
[2018-05-13 05:20] LABS: Hematocrit 37.6 % (40-54); Hemoglobin 12.1 g/dl (13.0-16.5); Mean Corp Hgb Conc 32.2 g/gl (32-36); Mean Corpuscular Hgb 28.9 pg (27.0-32.0); Mean Corpuscular Volume 89.7 fL (80-94); Mean Platelet Vol. 9.8 fl (6.2-12.0); Platelet Count 245 K/mm3 (150-450); RBC Distribution Width CV 16.3 % (11.6-14.6); RBC Distribution Width SD 52.5 fl (35.1-43.9); Red Blood Count 4.19 M/mm3 (4.6-6.2); White Blood Count 7.7 K/mm3 (4.4-11.0)
[2018-05-13 05:23] LABS: Scan Indicated on CBC? Y/N NO
[2018-05-13] MEDS: Cephalexin 500 MG Capsule PO ×3 (05:25→21:29)
[2018-05-13 05:26] LABS: International Normalized Ratio 1.4; Prothrombin Time (Protime)PT. 17.6 SECONDS (11.7-14.9)
[2018-05-13] MEDS: Nitroglycerin Oint 1 INCH PACKET TRANSDERM. (05:26)
[2018-05-13] MEDS: Aspirin 81 MG TAB.CHEW PO (05:26)
[2018-05-13] MEDS: Isosorbide Mononitrate 60 MG Tablet PO (05:27)
[2018-05-13] MEDS: Metoprolol(XL)Succ 50 MG Tablet PO (05:27)
[2018-05-13] MEDS: 0.9% NaCl Peripheral Flush Adult/Peds IV ×2 (05:28→13:53)
[2018-05-13 05:36] LABS: Anion Gap 7 (5-15); BUN 29 mg/dL (7-18); BUN/Creat Ratio 21.3 RATIO (10-20); Calcium,Total 9.2 mg/dL (8.5-10.1); Chloride 105 mmol/L (98-107); Creatinine, Serum 1.36 mg/dL (0.70-1.30); EST Glomerular Filtration Rate 53 mL/min (>60); Est Glom Filt Rate - Afr Amer 65 mL/min (>60); Estimated Creatinine Clearance 39.83 ml/min; Glucose 99 mg/dL (74-106); Potassium 4.7 mmol/L (3.5-5.1); Sodium Level 141 mmol/L (136-145)
--- NOTE | 2018-05-13 05:55 | EKG12_ITS ---
Test Reason : POST PCI Blood Pressure : / mmHG Vent. Rate : 068 BPM Atrial Rate : 068 BPM P-R Int : 194 ms QRS Dur : 112 ms QT Int : 410 ms P-R-T Axes : 027 -41 -08 degrees QTc Int : 435 ms Normal sinus rhythm Left axis deviation Abnormal ECG When compared with ECG of 13-MAY-2018 05:39, MANUAL COMPARISON REQUIRED, DATA IS UNCONFIRMED Confirmed by ALEXANDER GARZON, KWESI ([id number]), society editor ISABELLE WYMAN ([id number]) on 05/15/2018 9:31:07 AM Referred By: HALLIE Confirmed By:KWESI MUNOZ MD
--- NOTE | 2018-05-13 09:34 | PCM.PN.HOSP ---
Patient Problems: Active and Suspected Problems (Last Reviewed 05/10/18 @ 15:16 by Ravi Tafoya DO) Unstable angina (Acute) Cellulitis (Acute) Subjective: Patient seen INR down to 1.4 plans for patient plan is for patient to undergo left heart catheterization later this morning Objective: GENERAL: cooperative HEENT: Atraumatic; moist oral mucosa EYES; Anicteric, Normal Conjunctiva NECK; supple, normal thyroid, no distended JVD. RESPIRATORY: Diminished to auscultation bilaterally, CARDIOVASCULAR: Regular S1 S2, no audible murmurs GI: soft, non-tender, normoactive bowel sounds, : No Renal angle tenderness; EXTREMITIES: no clubbing, no cyanosis. MUSCULOSKELETAL: No Joint Tenderness; no muscle waisting NEURO: Awake; no lateralizing signs. SKIN: Bilateral lower extremity stasis dermatitis PSYCH; Normal affect Vitals/I&O's: Vital Signs Temp Pulse Resp BP Pulse Ox 98.5 F 64 18 138/70 H 94 05/13/18 05:22 05/13/18 05:27 05/13/18 05:22 05/13/18 05:27 05/13/18 05:22 Oxygen Flow Rate (L/min) 95 Oxygen Delivery Method Room Air Weight: 101 kg Body Mass Index (BMI) 34.9 Intake and Output for Last 24 Hours 05/11/18 05/12/18 05/13/18 23:59 23:59 23:59 Intake Total 1030 / 1030 870 / 870 Output Total 3325 / 3325 1325 / 1325 Balance -2295 / -2295 -455 / -455 Microbiology Past 72 Hours 05/10/18 11:00 Blood Culture (Wb) - Anticubital Right Blood Culture - Preliminary No growth in 48 hours. 05/10/18 10:45 Blood Culture (Wb) - Anticubital Left Blood Culture - Preliminary No growth in 48 hours. Laboratory Results 05/13/18 05:00: WBC 7.7, RBC 4.19 L, Hgb 12.1 L, Hct 37.6 L, MCV 89.7, MCH 28.9, MCHC 32.2, RDW 16.3 H, RDW Differential 52.5 H, Plt Count 245, MPV 9.8 05/13/18 05:00: PT 17.6 H, INR 1.4, APTT 40.0 H 05/13/18 05:00: Sodium 141, Potassium 4.7, Chloride 105, Carbon Dioxide 29.0, Anion Gap 7, BUN 29 H, Creatinine 1.36 H, Estim Creat Clear Calc 39.83, Est GFR (MDRD) Af Amer 65, Est GFR (MDRD) Non-Af 53 L, BUN/Creatinine Ratio 21.3 H, Glucose 99, Calcium 9.2 Current Medications Albuterol Sulfate (Ventolin Aerosols) 2 mg INHALATION Q4H PRN PRN PRN Reason: WHEEZING Aspirin (Aspirin, Baby) 81 mg PO DAILY@0800 [facility] Last Admin: 05/13/18 05:26 Dose: 81 mg Atorvastatin Calcium (Lipitor) 40 mg PO QHS [facility] Last Admin: 05/12/18 22:11 Dose: 40 mg Cephalexin (Keflex) 500 mg PO TID [facility] Last Admin: 05/13/18 05:25 Dose: 500 mg Doxycycline Monohydrate (Doxycycline) 100 mg PO BID [facility] Last Admin: 05/12/18 22:10 Dose: 100 mg Finasteride (Proscar) 5 mg PO DAILY [facility] Last Admin: 05/12/18 10:29 Dose: 5 mg Folic Acid (Folic Acid) 1 mg PO DAILY@0800 [facility] Last Admin: 05/12/18 10:29 Dose: 1 mg Furosemide (Lasix) 40 mg IV BID@1000,1800 [facility] Last Admin: 05/12/18 17:04 Dose: 40 mg Sodium Chloride () 1,000 mls @ 15 mls/hr IV .Q48H [facility] Isosorbide Mononitrate (Imdur) 60 mg PO DAILY [facility] Last Admin: 05/13/18 05:27 Dose: 60 mg Latanoprost (Xalatan Opthalmic) 1 drop EACH EYE QHS [facility] Last Admin: 05/12/18 22:11 Dose: 1 drop Loratadine (Claritin) 10 mg PO DAILY [facility] Last Admin: 05/12/18 10:30 Dose: 10 mg Lubiprostone (Amitiza) 24 mcg PO BID [facility] Last Admin: 05/12/18 23:37 Dose: Not Given Magnesium Hydroxide (Milk Of Magnesia) 30 ml PO DAILY PRN PRN Reason: Constipation Magnesium Oxide (Mag-Ox 400) 400 mg PO DAILY [facility] Last Admin: 05/12/18 10:29 Dose: 400 mg Metoprolol Succinate (Toprol Xl (Beta Luis Felipe)) 50 mg PO DAILY [facility] Last Admin: 05/13/18 05:27 Dose: 50 mg Multivitamins/Minerals (Multivitamin With Minerals) 1 tablet PO DAILY@0800 [facility] Last Admin: 05/12/18 10:30 Dose: 1 tablet Nitroglycerin (Nitrostat) 0.4 mg SUBLINGUAL Q5M PRN PRN Reason: CHEST PAIN Nitroglycerin (Nitrobid) 1 inch TRANSDERM. Q6 [facility] Last Admin: 05/13/18 05:26 Dose: 1 inch Nutritional Formula (Lactose Free) (Ensure Enlive) 120 ml PO 4X/DAY [facility] Last Admin: 05/12/18 22:11 Dose: 120 ml Pantoprazole Sodium (Protonix) 40 mg PO DAILY [facility] Last Admin: 05/12/18 10:30 Dose: 40 mg Sodium Chloride () 5 - 15 ml IV UD PRN PRN Reason: SALINE FLUSH Last Admin: 05/13/18 05:28 Dose: 10 ml Tamsulosin HCl (Flomax) 0.4 mg PO DAILY [facility] Last Admin: 05/12/18 10:30 Dose: 0.4 mg Medical Necessity - Tobacco Use Smoking Status: Former smoker Tobacco Use: Non-smoker Assessment/Plan All Active Problems (Last Reviewed 05/10/18 @ 15:16 by Ravi Tafoya DO) Chest pain (Acute) Unstable angina (Acute) Cellulitis (Acute) Cellulitis and abscess of left lower extremity (Resolved) Patient is an 82-year-old gentleman with extensive past medical history including CAD status post CABG, pulmonary embolism on systemic anticoagulation with Coumadin who presented with chest pain. Admitted to a monitored bed subsequent serial cardiac enzymes consistent with acute non-STEMI consult placed to cardiology 1. Acute non-STEMI: Patient has been admitted to monitored bed where he is being managed per protocol so far with beta-blockade starting therapy and antiplatelet with aspirin. Patient was not placed on systemic anticoagulation since he is on Coumadin and INR was markedly elevated on admission. Patient has been seen by cardiology with plans for patient to undergo left heart cath on 05/13/2018 with INR down to 1.4.. 2. 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 Monet [facility] 3. Hypertension-blood pressure controlled, home medications continued with dose adjustment as needed 4. Dyslipidemia-patient is on statin therapy, continued at home dose 5. BPH patient is on Proscar 6. History of pulmonary embolism on systemic anticoagulation with Coumadin INR on admission was 4.1, 3.6 as of 05/11/2018 7. Bilateral lower extremity cellulitis. This was felt to be venous stasis dermatitis by admitting physician however patient had been started on doxycycline as outpatient continued during his stay. 8. DVT prophylaxis on Coumadin no need for additional measures Code Visit Inpatient E&M: 52028 Subs Hosp L2
[2018-05-13] MEDS: 0.9% Normal Saline 1,000 ML 15 ML IV (11:26)
--- NOTE | 2018-05-13 12:28 | PCM.PN.CARD ---
Subjectve: Patient seen and evaluated. Appears to be doing fair. Objective: Vital Signs Temp Pulse Resp BP Pulse Ox 98.5 F 64 16 108/72 96 05/13/18 09:30 05/13/18 09:30 05/13/18 09:30 05/13/18 09:30 05/13/18 09:30 Oxygen Flow Rate (L/min) 95 Oxygen Delivery Method Room Air Weight: 222 lb 10.67 oz Body Mass Index (BMI) 34.9 Intake and Output for Last 24 Hours 05/11/18 05/12/18 05/13/18 23:59 23:59 23:59 Intake Total 1030 / 1030 870 / 870 Output Total 3325 / 3325 1325 / 1325 Balance -2295 / -2295 -455 / -455 General: Awake, Alert, Oriented x 3 HEENT: PERRL, EOMI, Sclera Non Icteric Neck: Supple, Good ROM, No Lymph Node Enlargement Lungs: Clear to auscultation Cardiovascular: Regular Rhythm, Normal S1, Normal S2, No Murmurs, No Rubs, No Gallops Vascular: No Carotid Bruits, Normal Femoral Pulses, Normal Radial Pulses, Normal Dorsalis Pedal Pulse, Normal Posterior Tibial Pulses Abdomen: Bowel Sounds Present, Soft, Non Tender, No HSM, No Organomegaly Extremities: No Cyanosis, No Clubbing, No edema Neurological: No Focal Motor or Sensory Deficit Psych/Mental Status: Appropriate 05/13/18 05:00: WBC 7.7, RBC 4.19 L, Hgb 12.1 L, Hct 37.6 L, MCV 89.7, MCH 28.9, MCHC 32.2, RDW 16.3 H, RDW Differential 52.5 H, Plt Count 245, MPV 9.8 05/13/18 05:00: PT 17.6 H, INR 1.4, APTT 40.0 H 05/13/18 05:00: Sodium 141, Potassium 4.7, Chloride 105, Carbon Dioxide 29.0, Anion Gap 7, BUN 29 H, Creatinine 1.36 H, Est GFR (MDRD) Af Amer 65, Est GFR (MDRD) Non-Af 53 L, BUN/Creatinine Ratio 21.3 H, Glucose 99, Calcium 9.2 Rhythm: EKG: ECHO: Stress Test: Cardiac Cath: PCI: CT Surgery: Holter monitor: EPS: PPM: CXR: Chest CT Scan: Medical Necessity - Tobacco Use Smoking Status: Former smoker Tobacco Use: Non-smoker Assessment/Plan 1. Non-ST elevation myocardial infarction Patient presents with chest discomfort albeit atypical and has a non-ST elevation myocardial infarction. He underwent stress testing last year with no obvious ischemia. At this juncture it may be prudent to reevaluate his coronary anatomy. Cardiac catheterization demonstrated the following: Normal left main coronary artery extending into the left anterior descending artery with previously placed stent which is patent with no high-grade stenosis noted in the LAD. [place] right coronary artery with ulcerated plaque of 80-85% in the mid to distal portion and moderately severe disease in the proximal to midportion with slow flow noted distally. Saphenous vein graft sequential to the obtuse marginal 1 and 2 with no high-grade stenosis Radial graft to the right coronary artery which is noted to be previously occluded. Left internal mammary artery to the left anterior descending artery which was atretic Based on the above angiographic findings the patient would undergo angioplasty and stenting of the right coronary artery. His echocardiogram demonstrated preserved left ventricular systolic function estimated at 65% with no wall motion abnormalities present 2. Coronary artery disease The patient has known coronary artery disease as discussed above. This will be evaluated later this week. 3. Hypertension Patient's blood pressure is under excellent control at this particular time no other changes will be made 4. Hyperlipidemia Will continue with aggressive risk factor modification. Thank you for allowing me to participate in the care of your patient. Please don't hesitate to call if any issues arise
--- NOTE | 2018-05-13 12:31 | PN.CARD_ITS ---
Subjectve: Patient seen and evaluated. Appears to be doing fair. Objective: Vital Signs Temp Pulse Resp BP Pulse Ox 98.5 F 64 16 108/72 96 05/13/18 09:30 05/13/18 09:30 05/13/18 09:30 05/13/18 09:30 05/13/18 09:30 Oxygen Flow Rate (L/min) 95 Oxygen Delivery Method Room Air Weight: 222 lb 10.67 oz Body Mass Index (BMI) 34.9 Intake and Output for Last 24 Hours 05/11/18 05/12/18 05/13/18 23:59 23:59 23:59 Intake Total 1030 / 1030 870 / 870 Output Total 3325 / 3325 1325 / 1325 Balance -2295 / -2295 -455 / -455 General: Awake, Alert, Oriented x 3 HEENT: PERRL, EOMI, Sclera Non Icteric Neck: Supple, Good ROM, No Lymph Node Enlargement Lungs: Clear to auscultation Cardiovascular: Regular Rhythm, Normal S1, Normal S2, No Murmurs, No Rubs, No Gallops Vascular: No Carotid Bruits, Normal Femoral Pulses, Normal Radial Pulses, Normal Dorsalis Pedal Pulse, Normal Posterior Tibial Pulses Abdomen: Bowel Sounds Present, Soft, Non Tender, No HSM, No Organomegaly Extremities: No Cyanosis, No Clubbing, No edema Neurological: No Focal Motor or Sensory Deficit Psych/Mental Status: Appropriate 05/13/18 05:00: WBC 7.7, RBC 4.19 L, Hgb 12.1 L, Hct 37.6 L, MCV 89.7, MCH 28.9, MCHC 32.2, RDW 16.3 H, RDW Differential 52.5 H, Plt Count 245, MPV 9.8 05/13/18 05:00: PT 17.6 H, INR 1.4, APTT 40.0 H 05/13/18 05:00: Sodium 141, Potassium 4.7, Chloride 105, Carbon Dioxide 29.0, Anion Gap 7, BUN 29 H, Creatinine 1.36 H, Est GFR (MDRD) Af Amer 65, Est GFR (MDRD) Non-Af 53 L, BUN/Creatinine Ratio 21.3 H, Glucose 99, Calcium 9.2 Rhythm: EKG: ECHO: Stress Test: Cardiac Cath: PCI: CT Surgery: Holter monitor: EPS: PPM: CXR: Chest CT Scan: Medical Necessity - Tobacco Use Smoking Status: Former smoker Tobacco Use: Non-smoker Assessment/Plan 1. Non-ST elevation myocardial infarction * Patient presents with chest discomfort albeit atypical and has a non-ST elevation myocardial infarction. * He underwent stress testing last year with no obvious ischemia. At this juncture it may be prudent to reevaluate his coronary anatomy. * Cardiac catheterization demonstrated the following: Normal left main coronary artery extending into the left anterior descending artery with previously placed stent which is patent with no high-grade stenosis noted in the LAD. * [place] right coronary artery with ulcerated plaque of 80-85% in the mid to distal portion and moderately severe disease in the proximal to midportion with slow flow noted distally. * Saphenous vein graft sequential to the obtuse marginal 1 and 2 with no high- grade stenosis * Radial graft to the right coronary artery which is noted to be previously occluded. * Left internal mammary artery to the left anterior descending artery which was atretic * Based on the above angiographic findings the patient would undergo angioplasty and stenting of the right coronary artery. * * His echocardiogram demonstrated preserved left ventricular systolic function estimated at 65% with no wall motion abnormalities present 2. Coronary artery disease * The patient has known coronary artery disease as discussed above. This will be evaluated later this week. * 3. Hypertension * Patient's blood pressure is under excellent control at this particular time no other changes will be made * 4. Hyperlipidemia * Will continue with aggressive risk factor modification. * * Thank you for allowing me to participate in the care of your patient. Please don't hesitate to call if any issues arise
--- NOTE | 2018-05-13 13:21 | CL.D_ITS ---
Patient Name: LOVELY SINGH Study Date: 05/13/2018 Performing: Fito Alcala MD Ht: 66.92 inches 170 cm : 1935 Wt: 222.67 lbs 101 kg Age: 82 Gender: male BSA: 2.11 PROCEDURE(S) PERFORMED MO03-DZI/COR/CABG [id number] W OR WO PTCA, SINGLE CORONARY ARTERY CLINICAL PROFILE AND INDICATIONS Indications: Worsening Angina, Suspected CAD, ACS <= 24 hrs, Worsening Angina, Stable Known CAD Heart Failure: None Stress/Imaging Stress/Image Study Performed: No Stress/Image Study Performed: No Angina Classification Anginal Classification w/in 2 Weeks: CCS III CAD Presentations: Unstable angina. Non-STEMI. Symptom onset Date/Time: 05/12/2018 Time Not Availa ble Comorbidities/Risk Factors: Hypertension Dyslipidemia Prior PCI CONCLUSIONS Severe disease noted of the [place] right coronary artery RECOMMENDATIONS Referred for immediate PCI DESCRIPTION OF PROCEDURE The patient arrived to the procedure lab. The risks and benefits of the procedure as well as a full d escription of our services here and current unavailability of surgical backup were fully explained to the patient and/or their significant other prior to the catheterization. The Timeout was completed, verifying the correct patient and procedure. The patient's procedural site was prepped and draped in the usual fashion. Local anesthetic was given subcutaneously to right groin region with Lidocaine 2%. Using a modified Seldinger technique, arterial access was obtained via the right femoral artery, a 5 Fr sheath was inserted. Left Coronary Artery selective angiography was performed in multiple views u sing a 5 Fr. JL4 catheter. Saphenous Vein graft to the OM 1 selective angiography was performed in mu ltiple views using a 5 Fr. 3DRC catheter. Right Coronary Artery selective angiography was then perfor med in multiple views using a 5 Fr. 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 RIGHT CORONARY ARTERY: PROX RCA: Mild luminal irregularities less than 30% MID RCA: Mild luminal irregularities DISTAL RCA: Eccentric plaque with 80-90% stenosis GRAFTS: CASTILLO graft to the Mid LAD atretic Sequential graft to the OM1 and 2 is patent with mild diffuse disease Radial graft to the RPDA is totally occluded COMPLICATIONS No Complications PROCEDURE MEDICATIONS Oxygen: 2 L/min via nasal cannula Brilinta 180 mg PO @ 05/13/2018 12:03:37 Heparin 2 unit(s) IV 05/13/2018 12:35:06 Nitro 200 mcg IC 05/13/2018 12:37:25 Nitro 200 mcg IC 05/13/2018 12:37:25 Nitro 200 mcg IC 05/13/2018 12:43:58 SUMMARY OF HEMODYNAMIC DATA Time AIR REST ECG 12:03:53 AO 119/61 (86) SA 12:04:02 AO 114/61 (84) 12:38:05 Signed By Fito Alcala MD On 05/13/2018 13:20:43 Fito Alcala MD
--- NOTE | 2018-05-13 13:27 | CL.I_ITS ---
Patient Name: LOVELY SINGH Study Date: 05/13/2018 Performing: Elias Montilla MD Ht: 66.92 inches 170 cm : 1935 Wt: 222.67 lbs 101 kg Age: 82 Gender: male BSA: 2.11 PROCEDURE(S) PERFORMED [id number] W OR WO PTCA, SINGLE CORONARY ARTERY CLINICAL PROFILE AND CO-MORBIDITIES Indications: Worsening Angina, Suspected CAD, ACS <= 24 hrs, Worsening Angina, Stable Known CAD Heart Failure: None Stress/Imaging Stress/Image Study Performed: No Stress/Image Study Performed: No Angina Classification Anginal Classification w/in 2 Weeks: CCS III CAD Presentations: Unstable angina. Non-STEMI. Symptom onset Date/Time: 05/12/2018 Time Not Availa ble Comorbidities/Risk Factors: Hypertension Dyslipidemia Prior PCI Prior CABG CONCLUSIONS Successful PTCA/EASTON distal RCA with a 3.5 x 38 Promus Syergy, post dilated proximally at 3.78 and 4.0 mm at interface of 4.0 stent; 85%-->0%, no dissection. Successful PTCA/EASTON mid RCA with a 4.0 x 32 Promus Synergy, post dilated with a 4.0 x 12 NC Balloon; 75%-->0%, no dissection. RECOMMENDATIONS Highly recommend quitting all tobacco products Follow up with primary chief nurse Risk factor modification ASA Indefinitley Plavix for at least 12 months Routine post interventional care Refer for Outpatient Cardiac Rehab Manual sheath removal per protocol Follow up with Dr. Alcala Manual sheath removal given sheath appears to be in profunda artery. DESCRIPTION OF PROCEDURE The patient arrived to the procedure lab. The risks and benefits of the procedure as well as a full d escription of our services here and current unavailability of surgical backup were fully explained to the patient and/or their significant other prior to the catheterization. The Timeout was completed, verifying the correct patient and procedure. The patient's procedural site was prepped and draped in the usual fashion. Local anesthetic was given subcutaneously to right groin region with Lidocaine 2% Using a modified Seldinger technique,arterial access was obtained via the right femoral artery, a 5Fr sheath was inserted. Left Coronary Artery selective angiography was performed in multiple views usin g a 5 Fr. JL4 catheter. Saphenous Vein graft to the OM 1 selective angiography was performed in multi ple views using a 5 Fr. 3DRC catheter. Right Coronary Artery selective angiography was then performed in multiple views using a 5 Fr. 3DRC (Peng) catheter.The images were reviewed and options discussed. A decision was then made to proceed with an Intervention, IVUS or other adjunct pr ocedure. Arterial sheath was exchanged for a 6 Fr 55 Sheath. AL 1.0 Guide catheter was inserted and engage d into the RCA. BMW Guide wire was advanced to the RCA. 2.00X12 EMERGE Balloon catheter was inserted. Balloon catheter was advanced across lesion in the right coronary, distal. PTCA balloon inflated at 6 atms for 6 secs. PTCA balloon inflated at 12 atms for 8 secs. PTCA balloon inflated at 12 atms for 8 secs. PTCA balloon inflated at 12 atms for 8 secs. Angiogram performed post balloon dilatation. 3.5 0X38 SYNERGY Drug Eluting stent was inserted. Drug Eluting stent was advanced across the lesion in th e right coronary, distal. 4.00X32 SYNERGY Drug Eluting stent was inserted. Drug Eluting stent was adv anced across the lesion in the right coronary, mid. 4.00X12 NC EUPHORA Balloon catheter was inserted post stent. Angiogram performed post balloon dilatation. Arterial sheath was exchanged for a 6 Fr 11C M Sheath. The arterial sheath was sutured in place and capped INTERVENTION INFORMATION LESION SITE: RCA (Distal) Lesion Complexity: High/C, lesion at bifurcation: No, thrombus present: No, lesion length: 38 mm, cul prit lesion: Yes Pre Stenosis: 85 % Pre intervention BRYNN flow: 3 PROCEDURE: Drug Eluting Stent with pre and post dilatation Post Stenosis: 0 % Post intervention BRYNN flow: 3 Lesion Devices: Bernal .014 BMW Carver Straight 190cm Cook 6F 55cm Sheath Medtronic 6 Fr AL1.0 100cm Guide Catheter Melecio Sci EMERGE MR 2.00x12 BALLOON Melecio Sci Synergy MR EASTON 3.50x38 Medtronic NC EUPHORA RX 4.0x12 BALLOON LESION SITE: RCA (Mid) Lesion Complexity: High/C, lesion at bifurcation: No, thrombus present: No, lesion length: 32 mm, cul prit lesion: No Pre Stenosis: 75 % Pre intervention BRYNN flow: 3 PROCEDURE: Drug Eluting Stent with pre and post dilatation Post Stenosis: 0 % Post intervention BRYNN flow: 3 Lesion Devices: Bernal .014 BMW Carver Straight 190cm Medtronic 6 Fr AL1.0 100cm Guide Catheter Melecio Sci Synergy MR EASTON 4.00x32 Medtronic NC EUPHORA RX 4.0x12 BALLOON COMPLICATIONS No Complications PROCEDURE MEDICATIONS Oxygen: 2 L/min via nasal cannula Brilinta 180 mg PO @ 05/13/2018 12:03:37 Heparin 2 unit(s) IV 05/13/2018 12:35:06 Nitro 200 mcg IC 05/13/2018 12:37:25 Nitro 200 mcg IC 05/13/2018 12:37:25 Nitro 200 mcg IC 05/13/2018 12:43:58 SUMMARY OF HEMODYNAMIC DATA Time AIR REST ECG 12:03:53 AO 119/61 (86) SA 12:04:02 AO 114/61 (84) 12:38:05 Signed By Elias Montilla MD On 05/13/2018 13:26:02 Elias Montilla MD
[2018-05-13] MEDS: 0.9% Normal Saline 1,000 ML 150 ML IV (13:30)
[2018-05-13] MEDS: Ketorolac 30 MG/ML Syringe IV (15:12)
[2018-05-13] MEDS: Folic Acid 1 MG Tablet PO (15:13)
[2018-05-13] MEDS: Tamsulosin HCl 0.4 MG Capsule PO (15:13)
[2018-05-13] MEDS: Multivitamins,Ther W-Minerals Tablet 1 TABLET PO (15:13)
[2018-05-13] MEDS: Finasteride 5 MG Tablet PO (15:13)
[2018-05-13] MEDS: Magnesium Oxide 400 MG Tablet PO (15:14)
[2018-05-13] MEDS: Lubiprostone 24 MCG Capsule PO ×2 (15:14→21:29)
[2018-05-13] MEDS: Pantoprazole Sodium 40 MG Tablet PO (15:14)
[2018-05-13] MEDS: Doxycycline 100 MG CAPSULE PO ×2 (15:15→21:29)
[2018-05-13] MEDS: Loratadine 10 MG Tablet PO (15:15)
[2018-05-13 15:56] LABS: ACT Activated Clotting Time 164 sec (74-137)
[2018-05-13] MEDS: Ondansetron 4 MG/2 ML Vial IV (17:41)
[2018-05-13 17:51] LABS: ACT Activated Clotting Time 180 sec (74-137)
--- NOTE | 2018-05-13 18:00 | NURSING ---
Patients home med, Herb, returned to patients (Marie) to take home.
[2018-05-13] MEDS: Furosemide 40 MG/4 ML Vial IV (19:02)
--- NOTE | 2018-05-13 19:30 | NURSING ---
during shift to shift report it was noted that pt pulled PIV out
[2018-05-13] MEDS: Atorvastatin Calcium 40 MG Tablet PO (21:29)
[2018-05-13] MEDS: Latanoprost 0.005% 1 Bottle 1 DRP EACH EYE (21:29)
[2018-05-14] VITALS (13 sets, daily range): BP systolic 106–134; BP diastolic 63–94; PULSE 64–81; RESP 14–31; TEMP 36.6–36.7; O2SAT 93–98
[2018-05-14] MEDS: Cephalexin 500 MG Capsule PO (05:43)
[2018-05-14] MEDS: 0.9% NaCl Peripheral Flush Adult/Peds IV (05:43)
--- NOTE | 2018-05-14 07:15 | PCM.PN.HOSP ---
Patient Problems: Active and Suspected Problems (Last Updated 05/13/18 @ 17:19 by Lena Holder) Unstable angina (Acute) Cellulitis (Acute) Subjective: Seen. Underwent angioplasty to the RCA on 03/12/2019 Objective: GENERAL: cooperative HEENT: Atraumatic; moist oral mucosa EYES; Anicteric, Normal Conjunctiva NECK; supple, normal thyroid, no distended JVD. RESPIRATORY: Diminished to auscultation bilaterally, CARDIOVASCULAR: Regular S1 S2, no audible murmurs GI: soft, non-tender, normoactive bowel sounds, : No Renal angle tenderness; EXTREMITIES: no clubbing, no cyanosis. MUSCULOSKELETAL: No Joint Tenderness; no muscle waisting NEURO: Awake; no lateralizing signs. SKIN: Bilateral lower extremity stasis dermatitis PSYCH; Normal affect Vitals/I&O's: Vital Signs Temp Pulse Resp BP Pulse Ox 97.9 F 64 19 H 128/70 H 94 05/14/18 00:00 05/14/18 06:00 05/14/18 06:00 05/14/18 06:00 05/14/18 06:00 Oxygen Flow Rate (L/min) 2 Oxygen Delivery Method Room Air Weight: 101 kg Body Mass Index (BMI) 34.9 Intake and Output for Last 24 Hours 05/12/18 05/13/18 05/14/18 23:59 23:59 23:59 Intake Total 870 / 870 780 / 780 200 / 200 Output Total 1325 / 1325 1400 / 1400 900 / 900 Balance -455 / -455 -620 / -620 -700 / -700 Microbiology Past 72 Hours 05/10/18 11:00 Blood Culture (Wb) - Anticubital Right Blood Culture - Preliminary No growth in 48 hours. 05/10/18 10:45 Blood Culture (Wb) - Anticubital Left Blood Culture - Preliminary No growth in 48 hours. Laboratory Results 05/13/18 13:07: Activated Clotting Time 180 H 05/13/18 15:41: Activated Clotting Time 164 H Current Medications Albuterol Sulfate (Ventolin Aerosols) 2 mg INHALATION Q4H PRN PRN PRN Reason: WHEEZING Aspirin (Aspirin, Baby) 81 mg PO DAILY@0800 [facility] Last Admin: 05/13/18 05:26 Dose: 81 mg Atorvastatin Calcium (Lipitor) 40 mg PO QHS [facility] Last Admin: 05/13/18 21:29 Dose: 40 mg Cephalexin (Keflex) 500 mg PO TID [facility] Last Admin: 05/14/18 05:43 Dose: 500 mg Doxycycline Monohydrate (Doxycycline) 100 mg PO BID [facility] Last Admin: 05/13/18 21:29 Dose: 100 mg Finasteride (Proscar) 5 mg PO DAILY [facility] Last Admin: 05/13/18 15:13 Dose: 5 mg Folic Acid (Folic Acid) 1 mg PO DAILY@0800 [facility] Last Admin: 05/13/18 15:13 Dose: 1 mg Furosemide (Lasix) 40 mg IV BID@1000,1800 [facility] Last Admin: 05/13/18 19:02 Dose: 40 mg Sodium Chloride () 1,000 mls @ 15 mls/hr IV .Q48H [facility] Last Admin: 05/13/18 11:26 Dose: 15 mls/hr Isosorbide Mononitrate (Imdur) 60 mg PO DAILY [facility] Last Admin: 05/13/18 05:27 Dose: 60 mg Ketorolac Tromethamine (Toradol) 30 mg IV Q6H PRN PRN PRN Reason: PAIN Stop: 05/18/18 14:50 Last Admin: 05/13/18 15:12 Dose: 30 mg Latanoprost (Xalatan Opthalmic) 1 drop EACH EYE QHS [facility] Last Admin: 05/13/18 21:29 Dose: 1 drop Loratadine (Claritin) 10 mg PO DAILY [facility] Last Admin: 05/13/18 15:15 Dose: 10 mg Lubiprostone (Amitiza) 24 mcg PO BID [facility] Last Admin: 05/13/18 21:29 Dose: 24 mcg Magnesium Hydroxide (Milk Of Magnesia) 30 ml PO DAILY PRN PRN Reason: Constipation Magnesium Oxide (Mag-Ox 400) 400 mg PO DAILY [facility] Last Admin: 05/13/18 15:14 Dose: 400 mg Meperidine HCl (Demerol) 25 mg IV Q4H PRN PRN PRN Reason: RIGORS Last Admin: 05/13/18 17:42 Dose: 25 mg Metoprolol Succinate (Toprol Xl (Beta Luis Felipe)) 50 mg PO DAILY [facility] Last Admin: 05/13/18 05:27 Dose: 50 mg Multivitamins/Minerals (Multivitamin With Minerals) 1 tablet PO DAILY@0800 [facility] Last Admin: 05/13/18 15:13 Dose: 1 tablet Nitroglycerin (Nitrostat) 0.4 mg SUBLINGUAL Q5M PRN PRN Reason: CHEST PAIN Nutritional Formula (Lactose Free) (Ensure Enlive) 120 ml PO 4X/DAY [facility] Last Admin: 05/13/18 21:30 Dose: 120 ml Ondansetron HCl (Zofran) 4 mg IV Q6H PRN PRN PRN Reason: NAUSEA/VOMITING Last Admin: 05/13/18 17:41 Dose: 4 mg Pantoprazole Sodium (Protonix) 40 mg PO DAILY [facility] Last Admin: 05/13/18 15:14 Dose: 40 mg Sodium Chloride () 5 - 15 ml IV UD PRN PRN Reason: SALINE FLUSH Last Admin: 05/14/18 05:43 Dose: 10 ml Tamsulosin HCl (Flomax) 0.4 mg PO DAILY [facility] Last Admin: 05/13/18 15:13 Dose: 0.4 mg Medical Necessity - Tobacco Use Smoking Status: Former smoker Tobacco Use: Non-smoker Assessment/Plan All Active Problems (Last Updated 05/13/18 @ 17:19 by Lena Holder) H/O coronary artery bypass surgery (Resolved 09/12/00) History of coronary artery stent placement (Resolved 05/13/18) Unstable angina (Acute) Cellulitis (Acute) Cellulitis and abscess of left lower extremity (Resolved) Chest pain (Resolved) Patient is an 82-year-old gentleman with extensive past medical history including CAD status post CABG, pulmonary embolism on systemic anticoagulation with Coumadin who presented with chest pain. Admitted to a monitored bed subsequent serial cardiac enzymes consistent with acute non-STEMI consult placed to cardiology 1. Acute non-STEMI: Patient has been admitted to monitored bed where he is being managed per protocol so far with beta-blockade starting therapy and antiplatelet with aspirin. Patient was not placed on systemic anticoagulation since he is on Coumadin and INR was markedly elevated on admission. Patient has underwent left heart cath on 05/13/2018; findings below a)Normal left main coronary artery extending into the left anterior descending artery with previously placed stent which is patent with no high-grade stenosis noted in the LAD. b )[place] right coronary artery with ulcerated plaque of 80-85% in the mid to distal portion and moderately severe disease in the proximal to midportion with slow flow noted distally. c) Saphenous vein graft sequential to the obtuse marginal 1 and 2 with no high-grade stenosis d) Radial graft to the right coronary artery which is noted to be previously occluded. e) Left internal mammary artery to the left anterior descending artery which was atretic Based on the above angiographic findings the patient would undergo angioplasty and stenting of the right coronary artery. His echocardiogram demonstrated preserved left ventricular systolic function estimated at 65% with no wall motion abnormalities present 2. CAD status post CABG 09/12/2000 X 5 vessels: CASTILOL to LAD,left radial artery to RCA, SVG to first snd second DX branches of the LAD and SVG to the lateral CX which 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 Monet [facility] 3. Hypertension-blood pressure controlled, home medications continued with dose adjustment as needed 4. Dyslipidemia-patient is on statin therapy, continued at home dose 5. BPH patient is on Proscar 6. History of pulmonary embolism on systemic anticoagulation with Coumadin INR on admission was 4.1, 3.6 as of 05/11/2018 7. Bilateral lower extremity cellulitis. This was felt to be venous stasis dermatitis by admitting physician however patient had been started on doxycycline as outpatient continued during his stay. 8. DVT prophylaxis on Coumadin no need for additional measures Code Visit Inpatient E&M: [address] [facility] Hosp L3
--- NOTE | 2018-05-14 08:01 | PN.CARD_ITS ---
Subjectve: Patient seen and evaluated. Appears to be doing well. Objective: Vital Signs Temp Pulse Resp BP Pulse Ox 97.9 F 68 31 H 134/75 H 95 05/14/18 00:00 05/14/18 07:43 05/14/18 07:43 05/14/18 07:43 05/14/18 07:43 Oxygen Flow Rate (L/min) 2 Oxygen Delivery Method Room Air Weight: 222 lb 10.67 oz Body Mass Index (BMI) 34.9 Intake and Output for Last 24 Hours 05/12/18 05/13/18 05/14/18 23:59 23:59 23:59 Intake Total 870 / 870 780 / 780 200 / 200 Output Total 1325 / 1325 1400 / 1400 900 / 900 Balance -455 / -455 -620 / -620 -700 / -700 General: Awake, Alert, Oriented x 3 HEENT: PERRL, EOMI, Sclera Non Icteric Neck: Supple, Good ROM, No Lymph Node Enlargement Lungs: Clear to auscultation Cardiovascular: Regular Rhythm, Normal S1, Normal S2, No Murmurs, No Rubs, No Gallops Vascular: No Carotid Bruits, Normal Femoral Pulses, Normal Radial Pulses, Normal Dorsalis Pedal Pulse, Normal Posterior Tibial Pulses Abdomen: Bowel Sounds Present, Soft, Non Tender, No HSM, No Organomegaly Extremities: No Cyanosis, No Clubbing, No edema Neurological: No Focal Motor or Sensory Deficit Rhythm: EKG: ECHO: Stress Test: Cardiac Cath: PCI: CT Surgery: Holter monitor: EPS: PPM: CXR: Chest CT Scan: Medical Necessity - Tobacco Use Smoking Status: Former smoker Tobacco Use: Non-smoker Assessment/Plan 1. Non-ST elevation myocardial infarction * Patient presents with chest discomfort albeit atypical and has a non-ST elevation myocardial infarction. * He underwent stress testing last year with no obvious ischemia. At this juncture it may be prudent to reevaluate his coronary anatomy. * Cardiac catheterization demonstrated the following: Normal left main coronary artery extending into the left anterior descending artery with previously placed stent which is patent with no high-grade stenosis noted in the LAD. * [place] right coronary artery with ulcerated plaque of 80-85% in the mid to distal portion and moderately severe disease in the proximal to midportion with slow flow noted distally. * Saphenous vein graft sequential to the obtuse marginal 1 and 2 with no high- grade stenosis * Radial graft to the right coronary artery which is noted to be previously occluded. * Left internal mammary artery to the left anterior descending artery which was atretic * Based on the above angiographic findings the patient underwent angioplasty and stenting of the right coronary artery. * We will continue Brilinta 90 mg twice a day for a month * Restart anticoagulation with Coumadin * * His echocardiogram demonstrated preserved left ventricular systolic function estimated at 65% with no wall motion abnormalities present 2. Coronary artery disease * The patient has known coronary artery disease as discussed above. This will be evaluated later this week. * 3. Hypertension * Patient's blood pressure is under excellent control at this particular time no other changes will be made * 4. Hyperlipidemia * Will continue with aggressive risk factor modification. * * * Patient can be discharged for outpatient follow-up. * Thank you for allowing me to participate in the care of your patient. Please don't hesitate to call if any issues arise
--- NOTE | 2018-05-14 08:34 | DCINST_ITS ---
- Discharge Diagnoses Current Active Problems: Current Active and Chronic Problems (Last Updated 05/13/18 @ 17:19 by Lena Holder) Essential (primary) hypertension (Chronic) Secondary pulmonary arterial hypertension (Chronic) Unstable angina (Acute) Cellulitis (Acute) You will use the following diet at home:: Cardiac Allergies/Adverse Reactions: Allergies diazepam [From Valium] Allergy (Intermediate, Verified 05/10/18 10:27) Other HALLUCINATIONS morphine Allergy (Intermediate, Verified 05/10/18 10:27) Other TWITCHES Medications to take at Discharge Aspirin [Aspirin, Baby] 81 mg PO DAILY@0800 06/23/13 Metoprolol(XL)Succ [Toprol Xl (Beta Luis Felipe)] 50 mg PO DAILY 06/23/13 Cetirizine HCl [Zyrtec] 10 mg PO DAILY 03/25/15 Finasteride [Proscar] 5 mg PO DAILY 03/25/15 Isosorbide Mononitrate [Isosorbide Mononitrate ER] 60 mg PO DAILY 03/25/15 Multivit-Min/FA/Lycopen/Lutein [Centrum Silver Tablet] 1 ea PO DAILY 03/25/15 atorvastatin 40 mg tablet 40 mg PO QHS tab 05/08/17 lubiprostone 24 mcg capsule 24 mcg PO BID cap 05/08/17 magnesium oxide 400 mg (241.3 mg magnesium) tablet 400 mg PO QDAY tab 05/08/17 pantoprazole 20 mg tablet,delayed release 40 mg PO DAILY 05/08/17 warfarin 5 mg tablet 5 mg PO .COMPLEX tab 06/05/17 furosemide 40 mg tablet 40 mg PO DAILY tab 12/05/17 tamsulosin 0.4 mg capsule 0.4 mg PO DAILY 30 Days #30 12/05/17 Albuterol IH (ProAir) [Proair Hfa] 2 puff INHALATION Q4H PRN PRN 05/10/18 Folic Acid 0.4 mg PO DAILY@0800 05/10/18 Travoprost 0.004% [Travatan-Z 0.004% Eye Drop] 1 drop EACH EYE QHS 05/10/18 Varicella-Zoster Ge/As01b/Pf [Shingrix Vial Kit] 50 mcg IM . DIRECTED 05/10/18 Ticagrelor [Brilinta] 90 mg PO BID #180 tablet 05/14/18 The following prescriptions were given: Ticagrelor [Brilinta] 90 mg PO BID #180 tablet Primary Care Physician: Ashvin Tello Chi, MD [Primary Care Provider] - Please follow up with your Primary Care Physician in: in 3-5 days for INR check and subsequent adjustment of Coumadin dose if nee Test Results: Test results from this visit will be discussed in further detail at your follow- up appointment, if applicable. Please Follow Up With: Fito Alcala MD When: in 2-4 weeks Proposed Discharge Date: 05/14/18
--- NOTE | 2018-05-14 08:34 | PCM.DC.SUM ---
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) Atherosclerotic heart disease of [place] coronary artery with other forms of angina pectoris (Chronic) Dizziness and giddiness (Chronic) Shortness of breath (Chronic) Right pulmonary embolus (Chronic) Stroke (Chronic) Hyperlipidemia (Chronic) Hospital Course and Treatment Consultations 05/10/18 16:00 Consult: Onc/Wound/director pediatric Routine Comment: Operations: None Summary of Care Provided: Patient is an 82-year-old gentleman with extensive past medical history including CAD status post CABG, pulmonary embolism on systemic anticoagulation with Coumadin who presented with chest pain. Admitted to a monitored bed subsequent serial cardiac enzymes consistent with acute non-STEMI consult placed to cardiology 1. Acute non-STEMI: Patient has been admitted to monitored bed where he is being managed per protocol so far with beta-blockade starting therapy and antiplatelet with aspirin. Patient was not placed on systemic anticoagulation since he is on Coumadin and INR was markedly elevated on admission. Patient underwent left heart cath on 05/13/2018; findings below a)Normal left main coronary artery extending into the left anterior descending artery with previously placed stent which is patent with no high-grade stenosis noted in the LAD. b )[place] right coronary artery with ulcerated plaque of 80-85% in the mid to distal portion and moderately severe disease in the proximal to midportion with slow flow noted distally. c) Saphenous vein graft sequential to the obtuse marginal 1 and 2 with no high-grade stenosis d) Radial graft to the right coronary artery which is noted to be previously occluded. e) Left internal mammary artery to the left anterior descending artery which was atretic Based on the above angiographic findings the patient would undergo angioplasty and stenting of the right coronary artery. His echocardiogram demonstrated preserved left ventricular systolic function estimated at 65% with no wall motion abnormalities present 2. 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 Monet [facility] 3. Hypertension-blood pressure controlled, home medications continued with dose adjustment as needed 4. Dyslipidemia-patient is on statin therapy, continued at home dose 5. BPH patient is on Proscar 6. History of pulmonary embolism on systemic anticoagulation with Coumadin INR on admission was 4.1, 3.6 as of 05/11/2018 7. Bilateral lower extremity cellulitis. This was felt to be venous stasis dermatitis by admitting physician however patient had been started on doxycycline as outpatient continued during his stay. 8. DVT prophylaxis on Coumadin no need for additional measures Patient Problems: Active and Suspected Problems (Last Updated 05/13/18 @ 17:19 by Lena Holder) NSTEMI (non-ST elevated myocardial infarction) (Acute) Unstable angina (Acute) Objective: GENERAL: cooperative HEENT: Atraumatic; moist oral mucosa EYES; Anicteric, Normal Conjunctiva NECK; supple, normal thyroid, no distended JVD. RESPIRATORY: Diminished to auscultation bilaterally, CARDIOVASCULAR: Regular S1 S2, GI: soft, non-tender, normoactive bowel sounds, : No Renal angle tenderness; EXTREMITIES: no clubbing, no cyanosis NEURO: Awake; no lateralizing signs. - Physical Exam Vital Signs Temp Pulse Resp BP Pulse Ox 97.9 F 68 31 H 134/75 H 95 05/14/18 00:00 05/14/18 07:43 05/14/18 07:43 05/14/18 07:43 05/14/18 07:43 Oxygen Flow Rate (L/min) 2 Oxygen Delivery Method Room Air Weight: 101 kg Body Mass Index (BMI) 34.9 Intake and Output for Last 24 Hours 05/12/18 05/13/18 05/14/18 23:59 23:59 23:59 Intake Total 870 / 870 780 / 780 200 / 200 Output Total 1325 / 1325 1400 / 1400 900 / 900 Balance -455 / -455 -620 / -620 -700 / -700 Microbiology Past 72 Hours 05/10/18 11:00 Blood Culture - Preliminary Blood Culture (Wb) - Anticubital Right No growth in 48 hours. 05/10/18 10:45 Blood Culture - Preliminary Blood Culture (Wb) - Anticubital Left No growth in 48 hours. Laboratory Tests Past 24 Hrs 05/13/18 05/13/18 13:07 15:41 Activated Clotting Time 180 H 164 H Discharge Diet: Low fat/ Low Cholesterol Discharge Activity: Return to Normal Activity Home Medications: Medications to take at Discharge Aspirin [Aspirin, Baby] 81 mg PO DAILY@0800 06/23/13 Metoprolol(XL)Succ [Toprol Xl (Beta Luis Felipe)] 50 mg PO DAILY 06/23/13 Cetirizine HCl [Zyrtec] 10 mg PO DAILY 03/25/15 Finasteride [Proscar] 5 mg PO DAILY 03/25/15 Isosorbide Mononitrate [Isosorbide Mononitrate ER] 60 mg PO DAILY 03/25/15 Multivit-Min/FA/Lycopen/Lutein [Centrum Silver Tablet] 1 ea PO DAILY 03/25/15 atorvastatin 40 mg tablet 40 mg PO QHS tab 05/08/17 lubiprostone 24 mcg capsule 24 mcg PO BID cap 05/08/17 magnesium oxide 400 mg (241.3 mg magnesium) tablet 400 mg PO QDAY tab 05/08/17 pantoprazole 20 mg tablet,delayed release 40 mg PO DAILY 05/08/17 warfarin 5 mg tablet 5 mg PO .COMPLEX tab 06/05/17 furosemide 40 mg tablet 40 mg PO DAILY tab 12/05/17 tamsulosin 0.4 mg capsule 0.4 mg PO DAILY 30 Days #30 12/05/17 Albuterol IH (ProAir) [Proair Hfa] 2 puff INHALATION Q4H PRN PRN 05/10/18 Folic Acid 0.4 mg PO DAILY@0800 05/10/18 Travoprost 0.004% [Travatan-Z 0.004% Eye Drop] 1 drop EACH EYE QHS 05/10/18 Varicella-Zoster Ge/As01b/Pf [Shingrix Vial Kit] 50 mcg IM . DIRECTED 05/10/18 Ticagrelor [Brilinta] 90 mg PO BID #180 tablet 05/14/18 Following Prescrptions Were Given to Patient: Ticagrelor [Brilinta] 90 mg PO BID #180 tablet Primary Care Physician: Ashvin Tello Chi, MD [Primary Care Provider] - Please follow up with your Primary Care Physician in: in 3-5 days for INR check and subsequent adjustment of Coumadin dose if nee Please Follow Up With: Fito Alcala MD When: in 2-4 weeks Disposition: Home Minutes spent on discharge:: 35 Patient Condition:: Stable Medical Necessity - Tobacco Use Smoking Status: Former smoker Tobacco Use: Non-smoker Meaningful Use Info Meaningful Use Diagnoses (Choose all that apply): AMI - AMI Aspirin given w/in 24hrs of arrival?: Yes ASA at discharge?: Yes Statins at discharge?: Yes Donnie/ARB at discharge?: No Reason Donnie/ARB not ordered:: Not indicated Beta Luis Felipe at discharge?: Yes Done w/ Acute NM measure.: Yes Code Visit Inpatient E&M: 03758 Disch Hosp
--- NOTE | 2018-05-14 08:37 | DS.PCM_ITS ---
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 Admitted to a monitored bed subsequent serial cardiac enzymes consistent with acute non-STEMI consult placed to cardiology 1. Acute non-STEMI: Patient has been admitted to monitored bed where he is being managed per protocol so far with beta-blockade starting therapy and antiplatelet with aspirin. Patient was not placed on systemic anticoagulation since he is on Coumadin and INR was markedly elevated on admission. Patient underwent left heart cath on 05/13/2018; findings below a)Normal left main coronary artery extending into the left anterior descending artery with previously placed stent which is patent with no high-grade stenosis noted in the LAD. b )[place] right coronary artery with ulcerated plaque of 80-85% in the mid to distal portion and moderately severe disease in the proximal to midportion with slow flow noted distally. c) Saphenous vein graft sequential to the obtuse marginal 1 and 2 with no high- grade stenosis d) Radial graft to the right coronary artery which is noted to be previously occluded. e) Left internal mammary artery to the left anterior descending artery which was atretic Based on the above angiographic findings the patient would undergo angioplasty and stenting of the right coronary artery. His echocardiogram demonstrated preserved left ventricular systolic function estimated at 65% with no wall motion abnormalities present 2. 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 Monet [facility] 3. Hypertension-blood pressure controlled, home medications continued with dose adjustment as needed 4. Dyslipidemia-patient is on statin therapy, continued at home dose 5. BPH patient is on Proscar 6. History of pulmonary embolism on systemic anticoagulation with Coumadin INR on admission was 4.1, 3.6 as of 05/11/2018 7. Bilateral lower extremity cellulitis. This was felt to be venous stasis dermatitis by admitting physician however patient had been started on doxycycline as outpatient continued during his stay. 8. DVT prophylaxis on Coumadin no need for additional measures Patient Problems: Active and Suspected Problems (Last Updated 05/13/18 @ 17:19 by Lena Holder) NSTEMI (non-ST elevated myocardial infarction) (Acute) Unstable angina (Acute) Objective: GENERAL: cooperative HEENT: Atraumatic; moist oral mucosa EYES; Anicteric, Normal Conjunctiva NECK; supple, normal thyroid, no distended JVD. RESPIRATORY: Diminished to auscultation bilaterally, CARDIOVASCULAR: Regular S1 S2, GI: soft, non-tender, normoactive bowel sounds, : No Renal angle tenderness; EXTREMITIES: no clubbing, no cyanosis NEURO: Awake; no lateralizing signs. - Physical Exam Vital Signs Temp Pulse Resp BP Pulse Ox 97.9 F 68 31 H 134/75 H 95 05/14/18 00:00 05/14/18 07:43 05/14/18 07:43 05/14/18 07:43 05/14/18 07:43 Oxygen Flow Rate (L/min) 2 Oxygen Delivery Method Room Air Weight: 101 kg Body Mass Index (BMI) 34.9 Intake and Output for Last 24 Hours 05/12/18 05/13/18 05/14/18 23:59 23:59 23:59 Intake Total 870 / 870 780 / 780 200 / 200 Output Total 1325 / 1325 1400 / 1400 900 / 900 Balance -455 / -455 -620 / -620 -700 / -700 Microbiology Past 72 Hours 05/10/18 11:00 Blood Culture - Preliminary Blood Culture (Wb) - Anticubital Right No growth in 48 hours. 05/10/18 10:45 Blood Culture - Preliminary Blood Culture (Wb) - Anticubital Left No growth in 48 hours. Laboratory Tests Past 24 Hrs 05/13/18 05/13/18 13:07 15:41 Activated Clotting Time 180 H 164 H Discharge Diet: Low fat/ Low Cholesterol Discharge Activity: Return to Normal Activity Home Medications: Medications to take at Discharge Aspirin [Aspirin, Baby] 81 mg PO DAILY@0800 06/23/13 Metoprolol(XL)Succ [Toprol Xl (Beta Luis Felipe)] 50 mg PO DAILY 06/23/13 Cetirizine HCl [Zyrtec] 10 mg PO DAILY 03/25/15 Finasteride [Proscar] 5 mg PO DAILY 03/25/15 Isosorbide Mononitrate [Isosorbide Mononitrate ER] 60 mg PO DAILY 03/25/15 Multivit-Min/FA/Lycopen/Lutein [Centrum Silver Tablet] 1 ea PO DAILY 03/25/15 atorvastatin 40 mg tablet 40 mg PO QHS tab 05/08/17 lubiprostone 24 mcg capsule 24 mcg PO BID cap 05/08/17 magnesium oxide 400 mg (241.3 mg magnesium) tablet 400 mg PO QDAY tab 05/08/17 pantoprazole 20 mg tablet,delayed release 40 mg PO DAILY 05/08/17 warfarin 5 mg tablet 5 mg PO .COMPLEX tab 06/05/17 furosemide 40 mg tablet 40 mg PO DAILY tab 12/05/17 tamsulosin 0.4 mg capsule 0.4 mg PO DAILY 30 Days #30 12/05/17 Albuterol IH (ProAir) [Proair Hfa] 2 puff INHALATION Q4H PRN PRN 05/10/18 Folic Acid 0.4 mg PO DAILY@0800 05/10/18 Travoprost 0.004% [Travatan-Z 0.004% Eye Drop] 1 drop EACH EYE QHS 05/10/18 Varicella-Zoster Ge/As01b/Pf [Shingrix Vial Kit] 50 mcg IM . DIRECTED 05/10/18 Ticagrelor [Brilinta] 90 mg PO BID #180 tablet 05/14/18 Following Prescrptions Were Given to Patient: Ticagrelor [Brilinta] 90 mg PO BID #180 tablet Primary Care Physician: Ashvin Tello Chi, MD [Primary Care Provider] - Please follow up with your Primary Care Physician in: in 3-5 days for INR check and subsequent adjustment of Coumadin dose if nee Please Follow Up With: Fito Alcala MD When: in 2-4 weeks Disposition: Home Minutes spent on discharge:: 35 Patient Condition:: Stable Medical Necessity - Tobacco Use Smoking Status: Former smoker Tobacco Use: Non-smoker Meaningful Use Info Meaningful Use Diagnoses (Choose all that apply): AMI - AMI Aspirin given w/in 24hrs of arrival?: Yes ASA at discharge?: Yes Statins at discharge?: Yes Donnie/ARB at discharge?: No Reason Donnie/ARB not ordered:: Not indicated Beta Luis Felipe at discharge?: Yes Done w/ Acute TX measure.: Yes Code Visit Inpatient E&M: 83821 Disch Hosp
[2018-05-14] MEDS: Aspirin 81 MG TAB.CHEW PO (08:46)
[2018-05-14] MEDS: Folic Acid 1 MG Tablet PO (08:46)
[2018-05-14] MEDS: Loratadine 10 MG Tablet PO (08:47)
[2018-05-14] MEDS: Tamsulosin HCl 0.4 MG Capsule PO (08:47)
[2018-05-14] MEDS: Magnesium Oxide 400 MG Tablet PO (08:47)
[2018-05-14] MEDS: Lubiprostone 24 MCG Capsule PO (08:47)
[2018-05-14] MEDS: Isosorbide Mononitrate 60 MG Tablet PO (08:47)
[2018-05-14] MEDS: Doxycycline 100 MG CAPSULE PO (08:50)
[2018-05-14] MEDS: Metoprolol(XL)Succ 50 MG Tablet PO (08:51)
[2018-05-14] MEDS: Finasteride 5 MG Tablet PO (08:51)
[2018-05-14] MEDS: Pantoprazole Sodium 40 MG Tablet PO (08:51)
[2018-05-14] MEDS: Multivitamins,Ther W-Minerals Tablet 1 TABLET PO (08:52)
--- NOTE | 2018-05-14 11:05 | CRPHASE1 ---
Patient Data/Charges Phase II Referral:: [facility] Start Phase II:: FOLLOWING OFFICE VISIT WITH LOCKSTITCH COLLAR SETTER Risk Factors/Lifestyle Hx Hypertension: Yes Hx Diabetes Mellitus Type 1: No Hx Diabetes Mellitus Type 2: No Hx Metabolic Disorders: Yes Hx Dyslipidemia: Yes Hx Obesity: Yes Height: 5 ft 7 in - BMI 34.9 Stress: Home/Family Risk Factor for Sedentary Lifestyle: Moderate Risk Family History: Family History (Last Reviewed 05/10/18 @ 15:16 by Ravi Tafoya DO) Father No problems noted. Mother Cancer Brother Throat cancer Brother COPD (chronic obstructive pulmonary disease) Brother No problems noted. Sister COPD (chronic obstructive pulmonary disease) Heart disease Sister COPD (chronic obstructive pulmonary disease) Family History: Heart Disease Past Cardiac Illness: Coronary Artery Disease, Coronary Artery Bypass Graft Laboratory Values: Cardiac Rehab Phase I Labs Triglycerides 116 mg/dL (-199) 05/11/18 05:15 Cholesterol 125 mg/dL (200) 05/11/18 05:15 LDL Cholesterol 54 mg/dL (0-130) 05/11/18 05:15 HDL Cholesterol 48 mg/dL (40-) 05/11/18 05:15 Phase I Education Given On:: [place], Nutrition, Antiplatelet medication Issues Affecting Care:: None Knowledge of Condition:: Yes Learning Preferences: Verbal, Written - PT NOT SEEN D/T BEING DISCHARGED PRIOR TO GETTING CR ORDER- CALLED PATIENT Hospital Course Presenting Symptoms:: NSTEMI Medical/Surgical History CT:: Yes - NSTEMI COPD:: No KARAN:: No Diabetes:: No PVD:: Yes CABG: Yes Discharge/Home/Social Eval Discharge Disposition: Home
--- NOTE | 2018-05-14 11:09 | CRPHASE1_ITS ---
Patient Data/Charges Phase II Referral:: [facility] Start Phase II:: FOLLOWING OFFICE VISIT WITH SPEECH PATHOLOGY SUPERVISOR Risk Factors/Lifestyle Hx Hypertension: Yes Hx Diabetes Mellitus Type 1: No Hx Diabetes Mellitus Type 2: No Hx Metabolic Disorders: Yes Hx Dyslipidemia: Yes Hx Obesity: Yes Height: 5 ft 7 in - BMI 34.9 Stress: Home/Family Risk Factor for Sedentary Lifestyle: Moderate Risk Family History: Family History (Last Reviewed 05/10/18 @ 15:16 by Ravi Tafoya DO) Father No problems noted. Mother Cancer Brother Throat cancer Brother COPD (chronic obstructive pulmonary disease) Brother No problems noted. Sister COPD (chronic obstructive pulmonary disease) Heart disease Sister COPD (chronic obstructive pulmonary disease) Family History: Heart Disease Past Cardiac Illness: Coronary Artery Disease, Coronary Artery Bypass Graft Laboratory Values: Cardiac Rehab Phase I Labs Triglycerides 116 mg/dL (-199) 05/11/18 05:15 Cholesterol 125 mg/dL (200) 05/11/18 05:15 LDL Cholesterol 54 mg/dL (0-130) 05/11/18 05:15 HDL Cholesterol 48 mg/dL (40-) 05/11/18 05:15 Phase I Education Given On:: [place], Nutrition, Antiplatelet medication Issues Affecting Care:: None Knowledge of Condition:: Yes Learning Preferences: Verbal, Written - PT NOT SEEN D/T BEING DISCHARGED PRIOR TO GETTING CR ORDER- CALLED PATIENT Hospital Course Presenting Symptoms:: NSTEMI Medical/Surgical History CA:: Yes - NSTEMI COPD:: No KARAN:: No Diabetes:: No PVD:: Yes CABG: Yes Discharge/Home/Social Eval Discharge Disposition: Home
--- NOTE | 2018-05-14 11:10 | CRPH1.INSTRU ---
General Education CAD and cardiac anatomy and function:: Not instructed Explanation of diagnoses and procedures:: Not instructed Sign/Symptoms of [place]:: Not instructed Antiplatelet therapy: Not instructed Proper use of NTG-SL: Not instructed Emergency procedures and activation of EMS: Not instructed Compliance of all prescribed medications: Not instructed - PT NOT SEEN D/T BEING DISCHARGED PRIOR TO CR ORDER. PT. CALLED/ BOOKLET SENT Smoking Nicotine/Smoking Response Code:: Not instructed Dyslipidemia Patient Dyslipidemia Risk Factors Are:: Total Cholesterol, Triglycerides, HDL, LDL Recommendations Include:: Lipid profile provided, Reviewed NCEP/ATP guidelines, Therapeutic Lifestyle Change dietary guidelines Dyslipidemia Response Code:: Not instructed Overweight/Obesity Patient Overweight/Obesity Risk Factors Are:: Obesity - > or = 30 Recommendations Include:: Weight loss of 5-10%, Reduced calorie diet, Exercise 5-7 times/week Overweight/Obesity:: Not instructed Hypertension Recommendations Include:: Maintain BP <130/85, DASH dietary guidelines, Decrease/maintain normal body weight, Moderation of ETOH Hypertension:: Not instructed Heart Disease Heart Disease Response Code:: Not instructed Diabetes Patient Diabetes Risk Factors Are:: No documented hx of diabetes Metabolic Syndrome Patient Metabolic Syndrome Risk Factors Are [3 of 5]:: Waist circumference > 35 [female] or 40 [male], High triglyceride >150, Hypertension, Low HDL <40 [male] or < 50 [female] Recommendations Include:: Reinforce compliance to risk factor modifications, Encouraged follow-up with Primary Care Physician Metabolic Syndrome Response Code:: Not instructed Sedentary Patient Sedentary Risk Factors Are:: Lack of regular exercise Recommendations Include:: Aerobic exercise 5-7 times/week for 20-30 minutes continuously, Benefits of regular exercise, Discussed home walking program, Monitored Outpatient Cardiac Rehab Sedentary Response Code:: Not instructed Stress Recommendations Include:: Identification of stressors, and assessment of coping skills, Stress management techniques Stress Response Code:: Not instructed
--- NOTE | 2018-05-15 15:06 | CASEMGMT ---
HOOD [facility]URON DC Phone call: DC DATE: 05/14/18 DC Disposition: Home LACE/STRATA: 03/03 Intro role of CM to patient via phone. Pt states he has not picked up Brillinta because cost was $145/month. HOOD DURON offered to call [facility] with Brillinta savings card. Pt is agreeable and HOOD DURON called. First 30 day cost will be free. Called back to patient to let him know and to encourage him to speak with surgical services manager on Friday re: concern for cost of medication. Pt has good understanding of dc instructions. No further questions. Valdemar STONEN RN ACM
== END 2018-05-14 10:05 | disposition home or self-care (01) | DRG 247 ==
LOC: ED 11:12 → PCU 15:24 → ICU 05-14 06:37
PROVIDERS: Internal Medicine Cardiovascular Disease; Emergency Provider Emergency Medicine; Family Provider Family Medicine Geriatric Medicine; PCP Family Medicine Geriatric Medicine; Visit Provider Internal Medicine
DX: I21.4 Non-ST elevation (NSTEMI) myocardial infarction (principal); L03.115 Cellulitis of right lower limb; L03.116 Cellulitis of left lower limb; E78.5 Hyperlipidemia, unspecified; I87.2 Venous insufficiency (chronic) (peripheral); I25.110 Atherosclerotic heart disease of native coronary artery with unstable angina pectoris; N40.0 Benign prostatic hyperplasia without lower urinary tract symptoms; Z79.899 Other long term (current) drug therapy; Z87.891 Personal history of nicotine dependence; Z95.1 Presence of aortocoronary bypass graft; Z86.711 Personal history of pulmonary embolism; Z95.5 Presence of coronary angioplasty implant and graft; Z79.01 Long term (current) use of anticoagulants
CPT/HCPCS: 36415; 71045; 80048; 80061; 81002; 84484; 85025; 85027; 85347; 85610; 85730; 87040; 92928; 93005; 93306; 93458; 97162; 97166; 97530; 97535; 97802; 99285; J7030; Q9957; Q9967; A4216; C1725; C1769; C1874; C1887; C1894; C8929; C9600; J1327; J1940; J2405

== ENCOUNTER → 2018-05-18 14:09 | Outpatient (CLI) | payer MEDICARE, OTHER, SELFPAY ==
[2018-05-10 16:24] VITALS: BMI 34.9
[2018-05-18 14:51] LABS: Absolute Lymphocyte Count 2.47 X10^3/ul (0.83-4.51); Absolute Neutrophil Count 4.8 X10^3/uL (2.0-7.7); Basophil# 0.03 X10^3/uL; Basophil% 0.4 % (0-1); Eosinophil# 0.26 X10^3/uL; Eosinophils% 3.3 % (0-5); Hematocrit 37.6 % (40-54); Hemoglobin 11.8 g/dl (13.0-16.5); Lymphocyte # 2.47 X10^3/ul (4.0); Lymphocyte % 30.9 % (19-41); Mean Corp Hgb Conc 31.4 g/gl (32-36); Mean Corpuscular Hgb 28.2 pg (27.0-32.0); Mean Corpuscular Volume 89.7 fL (80-94); Mean Platelet Vol. 9.7 fl (6.2-12.0); Monocyte# 0.48 X10^3/uL; Neutrophil # 4.75 X10^3/uL (2.7-7.7); Neutrophil % 59.3 % (47-70); Platelet Count 245 K/mm3 (150-450); RBC Distribution Width CV 16.6 % (11.6-14.6); RBC Distribution Width SD 54.5 fl (35.1-43.9); Red Blood Count 4.19 M/mm3 (4.6-6.2)
[2018-05-18 14:55] LABS: POSITIVE COUNT NO; POSITIVE DIFFERENTIAL NO; POSITIVE MORPHOLOGY NO
[2018-05-18 15:13] LABS: BUN 17 mg/dL (7-18); Creatinine, Serum 1.31 mg/dL (0.70-1.30); Glucose 94 mg/dL (74-106)
[2018-05-18 15:14] LABS: Anion Gap 5 (5-15); CPK Total, Creatine Kinase 408 U/L (39-308); Calcium,Total 9.1 mg/dL (8.5-10.1); Chloride 104 mmol/L (98-107); EST Glomerular Filtration Rate 56 mL/min (>60); Est Glom Filt Rate - Afr Amer 67 mL/min (>60); Potassium 4.4 mmol/L (3.5-5.1); Sodium Level 137 mmol/L (136-145)
[2018-05-20 10:59] LABS: Myoglobin, Serum 156 ng/mL (28-72)
== END ==
LOC: POLAB3 14:10 → PSN 14:25
PROVIDERS: Family Provider Family Medicine Geriatric Medicine; PCP Family Medicine Geriatric Medicine; Visit Provider Family Medicine Geriatric Medicine
DX: I25.10 Atherosclerotic heart disease of native coronary artery without angina pectoris (principal); R68.83 Chills (without fever); R07.9 Chest pain, unspecified
CPT/HCPCS: 36415; 80048; 82550; 83874; 84484; 85025; 87633

== ENCOUNTER 2018-05-18 16:01 | Inpatient (IN) | payer MEDICARE, OTHER, SELFPAY ==
[2018-05-10 16:24] VITALS: BMI 34.9
[2018-05-18] VITALS (9 sets, daily range): BP systolic 110–146; BP diastolic 68–89; PULSE 58–73; RESP 16–24; TEMP 36.4–36.8; O2SAT 96–100; BMI 35.3; BMI 34.2; BMI 34.3
--- NOTE | 2018-05-18 16:22 | EKG12_ITS ---
Test Reason : OST PCI Blood Pressure : / mmHG Vent. Rate : 066 BPM Atrial Rate : 066 BPM P-R Int : 184 ms QRS Dur : 106 ms QT Int : 420 ms P-R-T Axes : 020 -49 -07 degrees QTc Int : 440 ms Normal sinus rhythm Left anterior fascicular block Nonspecific T wave abnormality Abnormal ECG When compared with ECG of 13-MAY-2018 13:40, MANUAL COMPARISON REQUIRED, DATA IS UNCONFIRMED Confirmed by ALEXANDER GARZON, KWESI ([id number]), newspaper editor ISABELLE WYMAN ([id number]) on 05/19/2018 11:55:23 AM Referred By: HALLIE Confirmed By:KWESI MUNOZ MD
--- NOTE | 2018-05-18 16:25 | RAD_ITS ---
STUDY: X-RAY CHEST REASON FOR EXAM: Male, 82 years old. Chest pain. TECHNIQUE: Single AP portable view of the chest. COMPARISON: May 10, 2018. FINDINGS: Telemetry wires overlie the chest. There is hypoexpansion of lungs without focal mass or infiltrate. There is no demonstrated pleural abnormality. Sternal cerclage wires are present from a prior sternotomy. The heart remains borderline enlarged. Normal mediastinum and donnie. Normal visualized pulmonary arteries. There is atherosclerotic calcification of the aortic arch with tortuosity. No visualized osseous changes. There is no demonstrated abnormality of the visualized soft tissue structures of the upper abdomen. RAD/Chest 1 View (Portable) IMPRESSION: Borderline cardiomegaly without acute pulmonary disease or interval change. Electronically Signed: Taurus York DO at 16:37 EST Tel [phone], Service support ,
[2018-05-18] MEDS: Aspirin 81 MG TAB.CHEW 243 MG PO (16:50)
[2018-05-18] MEDS: 0.9% Normal Saline 1,000 ML 15 ML IV (16:51)
[2018-05-18 16:58] LABS: International Normalized Ratio 1.1
--- NOTE | 2018-05-18 17:00 | ED.RN ---
TROP 1.[address] DR GARDNER AWARE
--- NOTE | 2018-05-18 17:08 | PCM.CONS.C ---
Reason for Consult Date of Consultation: 05/18/18 History of Present Illness: The patient is a 82 year old M who presented to the emergency room today. He had been doing well and in his stable state of health until yesterday when he said he started having some chest discomfort. He presented to his primary physician's office and had an EKG and troponin done the latter of which was abnormal and they called my office and he was instructed to go to the emergency room. He was admitted for further workup.He is a gentleman with a history of coronary artery disease status post coronary bypass surgery. 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 He denies any shortness breath or paroxysmal nocturnal dyspnea or pedal edema. His last heart catheterization 2017 demonstrated the abnormal circumflex arising from the right coronary artery the right coronary artery was previously angioplastied with severe disease noted in the distal and mid portions for which she underwent angioplasty and placement of a drug-eluting stent. There was mild disease in the left main coronary artery which gave rise to left anterior descending artery. The CASTILLO to the LAD was minimally functional. He was evaluated in the emergency room today and repeat blood work demonstrated that it was abnormal. His INR was however noted to be normal. Past Medical History Allergies/Adverse Reactions: Allergies diazepam [From Valium] Allergy (Intermediate, Verified 05/18/18 16:06) Other HALLUCINATIONS morphine Allergy (Intermediate, Verified 05/18/18 16:06) Other TWITCHES Home Medications: Ambulatory Orders Medication Instructions Recorded Aspirin [Aspirin, Baby] 81 mg PO DAILY@0800 06/23/13 Metoprolol(XL)Succ [Toprol Xl 50 mg PO DAILY 06/23/13 (Beta Luis Felipe)] Cetirizine HCl [Zyrtec] 10 mg PO DAILY 03/25/15 Finasteride [Proscar] 5 mg PO DAILY 03/25/15 Isosorbide Mononitrate [Isosorbide 60 mg PO DAILY 03/25/15 Mononitrate ER] Multivit-Min/FA/Lycopen/Lutein 1 ea PO DAILY 03/25/15 [Centrum Silver Tablet] atorvastatin 40 mg tablet 40 mg PO QHS tab 05/08/17 lubiprostone 24 mcg capsule 24 mcg PO BID cap 05/08/17 magnesium oxide 400 mg (241.3 mg 400 mg PO QDAY tab 05/08/17 magnesium) tablet pantoprazole 20 mg tablet,delayed 40 mg PO DAILY 05/08/17 release warfarin 5 mg tablet 5 mg PO .COMPLEX tab 06/05/17 furosemide 40 mg tablet 40 mg PO DAILY tab 12/05/17 tamsulosin 0.4 mg capsule 0.4 mg PO DAILY 30 Days #30 12/05/17 Albuterol IH (ProAir) [Proair Hfa] 2 puff INHALATION Q4H PRN PRN 05/10/18 Folic Acid 0.4 mg PO DAILY@0800 05/10/18 Travoprost 0.004% [Travatan-Z 1 drop EACH EYE QHS 05/10/18 0.004% Eye Drop] Varicella-Zoster Ge/As01b/Pf 50 mcg IM . 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 - *Family History Maternal Family History: Family History (Last Reviewed 05/10/18 @ 15:16 by Ravi Tafoya DO) Father No problems noted. Mother Cancer Brother Throat cancer Brother COPD (chronic obstructive pulmonary disease) Brother No problems noted. Sister COPD (chronic obstructive pulmonary disease) Heart disease Sister COPD (chronic obstructive pulmonary disease) History Items: No pertinent history Paternal Family History: Family History (Last Reviewed 05/10/18 @ 15:16 by Ravi Tafoya DO) Father No problems noted. Mother Cancer Brother Throat cancer Brother COPD (chronic obstructive pulmonary disease) Brother No problems noted. Sister COPD (chronic obstructive pulmonary disease) Heart disease Sister COPD (chronic obstructive pulmonary disease) History Items: No pertinent history Smoking Status: Former smoker Alcohol: None Drugs: None Review of Systems - Review of Systems General: Denies: Fever, Night Sweats, Fatigue HEENT: Denies: Vision Change Cardiovascular: Reports: Chest Discomfort. Denies: Shortness of Breath, Orthopnea, PND, Peripheral Edema, Palpitations, Lightheadedness, Dizziness, Near Syncope, Syncope Respiratory: Denies: Cough, Sputum Production, Hemoptysis Gastrointestinal: Denies: Hematemesis, Hematochezia, Melena Genitourinary: Denies: Dysuria, Hematuria Muscoloskeletal: Denies: Myalgias Skin: Denies: Rash Neurological: Denies: Dizziness Psychiatric: Denies: Anxiety Endocrine: Denies: Unexplained Weight Loss Hematologic/ Lymphatic: Denies: Anemia Subjectve: Pleasant gentleman in no apparent distress looks sleepy. Objective: Vital Signs Temp Pulse Resp BP Pulse Ox 98.3 F 71 24 H 110/68 100 05/18/18 16:01 05/18/18 17:03 05/18/18 17:03 05/18/18 17:03 05/18/18 17:03 Oxygen Flow Rate (L/min) 2 Oxygen Delivery Method Nasal Cannula Weight: 225 lb 12.054 oz Body Mass Index (BMI) 35.3 General: Awake, Alert, Oriented x 3 HEENT: PERRL, EOMI, Sclera Non Icteric Neck: Supple, Good ROM, No Lymph Node Enlargement Lungs: Clear to auscultation Cardiovascular: Regular Rhythm, Normal S1, Normal S2, No Murmurs, No Rubs, No Gallops Vascular: No Carotid Bruits, Normal Femoral Pulses, Normal Radial Pulses, Normal Dorsalis Pedal Pulse, Normal Posterior Tibial Pulses Abdomen: Bowel Sounds Present, Soft, Non Tender, No HSM, No Organomegaly Extremities: No Cyanosis, No Clubbing, No edema Musculoskeletal: No Erythema Skin: No Rashes Lymphatic: No Lymph Node Enlargement Neurological: No Focal Motor or Sensory Deficit Psych/Mental Status: Appropriate 05/18/18 16:15: PT 14.0, INR 1.1 05/18/18 16:15: Troponin I 1.260 H* Rhythm: EKG: ECHO: Stress Test: Cardiac Cath: PCI: CT Surgery: Holter monitor: EPS: PPM: CXR: Chest CT Scan: Assessment/Plan 1. Non-ST elevation myocardial infarction He presents approximately a week after his previous non-ST elevation myocardial infarction for which she underwent angioplasty and stenting and now has recurrent chest discomfort with enzyme elevation. At this point the appropriate thing would be to reevaluate his right coronary artery which was angioplastied and consider angioplasty to his apparent circumflex artery if the previously stented right coronary artery is noted to be patent. This has been discussed with interventionalist and will be performed tomorrow around noon. 2. Coronary artery bypass surgery Patient is status post coronary artery bypass surgery with his anatomy as described above. 3. Hypertension Blood pressure appears to be under good control will continue current medical therapy. 4. Hyperlipidemia Continue with aggressive risk factor modification. Will hold off on anticoagulation for now. Thank you for allowing me to participate in the care of your patient. Please don't hesitate to call if any issues arise
--- NOTE | 2018-05-18 17:13 | ED.DCSUM_ITS ---
- ER Visit Summary Date of Service: 05/18/18 Chief Complaint: Chest pain History of Present Illness: The patient is a 82 M admitted approximately week ago after having chest pain and an end STEMI. Patient received 1 cardiac stent and was discharged home on May 14. Patient states shortly after returning home he developed chest pain. He says was seen by his PCP today. Troponins drawn at the office today are now higher than at the time of discharge. He was intended to come back to the emergency room. Patient had previously been on Coumadin and states he restarted this medication after his stent. Physical Examination: Vital signs are unremarkable. Patient sitting upright in bed no acute distress. Head neck examination is unremarkable. Heart is regular rate and rhythm. Lungs sounds are clear. He does have chest wall tenderness along the left anterior chest. No crepitus. Abdomen is soft nontender. Extremity examination reveals 1+ bilateral edema. Test Results: Blood work from earlier today is reviewed. Patient's creatinine is 1.31 which is consistent with his baseline. Troponin was 1.130. During his last hospital stay troponin on the was 0.418. Chest x-ray was obtained at this time that shows borderline cardiomegaly. EKG at this time is sinus at [address] change. INR is 1.1. Troponin is currently 1.26. Emergency Department Course and Treatment: Patient was given baby aspirin. He received 1 sublingual nitro. He states he did not change his chest pain at all but did give him a headache and did slightly drop his blood pressure. Because he is not therapeutic on his Coumadin he is given an injection of Lovenox. I spoken with Dr. Alcala who will see the patient. I will speak with the hospitalist for admission. Treatment Plan: [] Disposition: Admit Impression: 1. Chest pain with recent end STEMI 2. Increasing troponins This note was generated with [employer] dictation software. It may contain incorrect words, spelling, and punctuation that were not noted in review of the chart prior to signing ED Disposition - Plan for ED Patient: Referrals: Ashvin Tello Chi, MD [Primary Care Provider] -
[2018-05-18] MEDS: Enoxaparin 100 MG/ML Syringe SC (17:17)
--- NOTE | 2018-05-18 17:18 | CON.PCM_ITS ---
Reason for Consult Date of Consultation: 05/18/18 History of Present Illness: The patient is a 82 year old M who presented to the emergency room today. He had been doing well and in his stable state of health until yesterday when he said he started having some chest discomfort. He presented to his primary physician's office and had an EKG and troponin done the latter of which was abnormal and they called my office and he was instructed to go to the emergency room. He was admitted for further workup.He is a gentleman with a history of coronary artery disease status post coronary bypass surgery. 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 He denies any shortness breath or paroxysmal nocturnal dyspnea or pedal edema. His last heart catheterization 2017 demonstrated the abnormal circumflex arising from the right coronary artery the right coronary artery was previously angioplastied with severe disease noted in the distal and mid portions for which she underwent angioplasty and placement of a drug-eluting stent. There was mild disease in the left main coronary artery which gave rise to left anterior descending artery. The CASTILLO to the LAD was minimally functional. He was evaluated in the emergency room today and repeat blood work demonstrated that it was abnormal. His INR was however noted to be normal. Past Medical History Allergies/Adverse Reactions: Allergies diazepam [From Valium] Allergy (Intermediate, Verified 05/18/18 16:06) Other HALLUCINATIONS morphine Allergy (Intermediate, Verified 05/18/18 16:06) Other TWITCHES Home Medications: Ambulatory Orders Medication Instructions Recorded Aspirin [Aspirin, Baby] 81 mg PO DAILY@0800 06/23/13 Metoprolol(XL)Succ [Toprol Xl 50 mg PO DAILY 06/23/13 (Beta Luis Felipe)] Cetirizine HCl [Zyrtec] 10 mg PO DAILY 03/25/15 Finasteride [Proscar] 5 mg PO DAILY 03/25/15 Isosorbide Mononitrate [Isosorbide 60 mg PO DAILY 03/25/15 Mononitrate ER] Multivit-Min/FA/Lycopen/Lutein 1 ea PO DAILY 03/25/15 [Centrum Silver Tablet] atorvastatin 40 mg tablet 40 mg PO QHS tab 05/08/17 lubiprostone 24 mcg capsule 24 mcg PO BID cap 05/08/17 magnesium oxide 400 mg (241.3 mg 400 mg PO QDAY tab 05/08/17 magnesium) tablet pantoprazole 20 mg tablet,delayed 40 mg PO DAILY 05/08/17 release warfarin 5 mg tablet 5 mg PO .COMPLEX tab 06/05/17 furosemide 40 mg tablet 40 mg PO DAILY tab 12/05/17 tamsulosin 0.4 mg capsule 0.4 mg PO DAILY 30 Days #30 12/05/17 Albuterol IH (ProAir) [Proair Hfa] 2 puff INHALATION Q4H PRN PRN 05/10/18 Folic Acid 0.4 mg PO DAILY@0800 05/10/18 Travoprost 0.004% [Travatan-Z 1 drop EACH EYE QHS 05/10/18 0.004% Eye Drop] Varicella-Zoster Ge/As01b/Pf 50 mcg IM . 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 - *Family History Maternal Family History: Family History (Last Reviewed 05/10/18 @ 15:16 by aRvi Tafoya DO) Father No problems noted. Mother Cancer Brother Throat cancer Brother COPD (chronic obstructive pulmonary disease) Brother No problems noted. Sister COPD (chronic obstructive pulmonary disease) Heart disease Sister COPD (chronic obstructive pulmonary disease) History Items: No pertinent history Paternal Family History: Family History (Last Reviewed 05/10/18 @ 15:16 by Ravi Tafoya DO) Father No problems noted. Mother Cancer Brother Throat cancer Brother COPD (chronic obstructive pulmonary disease) Brother No problems noted. Sister COPD (chronic obstructive pulmonary disease) Heart disease Sister COPD (chronic obstructive pulmonary disease) History Items: No pertinent history Smoking Status: Former smoker Alcohol: None Drugs: None Review of Systems - Review of Systems General: Denies: Fever, Night Sweats, Fatigue HEENT: Denies: Vision Change Cardiovascular: Reports: Chest Discomfort. Denies: Shortness of Breath, Orthopnea, PND, Peripheral Edema, Palpitations, Lightheadedness, Dizziness, Near Syncope, Syncope Respiratory: Denies: Cough, Sputum Production, Hemoptysis Gastrointestinal: Denies: Hematemesis, Hematochezia, Melena Genitourinary: Denies: Dysuria, Hematuria Muscoloskeletal: Denies: Myalgias Skin: Denies: Rash Neurological: Denies: Dizziness Psychiatric: Denies: Anxiety Endocrine: Denies: Unexplained Weight Loss Hematologic/ Lymphatic: Denies: Anemia Subjectve: Pleasant gentleman in no apparent distress looks sleepy. Objective: Vital Signs Temp Pulse Resp BP Pulse Ox 98.3 F 71 24 H 110/68 100 05/18/18 16:01 05/18/18 17:03 05/18/18 17:03 05/18/18 17:03 05/18/18 17:03 Oxygen Flow Rate (L/min) 2 Oxygen Delivery Method Nasal Cannula Weight: 225 lb 12.054 oz Body Mass Index (BMI) 35.3 General: Awake, Alert, Oriented x 3 HEENT: PERRL, EOMI, Sclera Non Icteric Neck: Supple, Good ROM, No Lymph Node Enlargement Lungs: Clear to auscultation Cardiovascular: Regular Rhythm, Normal S1, Normal S2, No Murmurs, No Rubs, No Gallops Vascular: No Carotid Bruits, Normal Femoral Pulses, Normal Radial Pulses, Normal Dorsalis Pedal Pulse, Normal Posterior Tibial Pulses Abdomen: Bowel Sounds Present, Soft, Non Tender, No HSM, No Organomegaly Extremities: No Cyanosis, No Clubbing, No edema Musculoskeletal: No Erythema Skin: No Rashes Lymphatic: No Lymph Node Enlargement Neurological: No Focal Motor or Sensory Deficit Psych/Mental Status: Appropriate 05/18/18 16:15: PT 14.0, INR 1.1 05/18/18 16:15: Troponin I 1.260 H* Rhythm: EKG: ECHO: Stress Test: Cardiac Cath: PCI: CT Surgery: Holter monitor: EPS: PPM: CXR: Chest CT Scan: Assessment/Plan 1. Non-ST elevation myocardial infarction * He presents approximately a week after his previous non-ST elevation myocardial infarction for which she underwent angioplasty and stenting and now has recurrent chest discomfort with enzyme elevation. At this point the appropriate thing would be to reevaluate his right coronary artery which was a ngioplastied and consider angioplasty to his apparent circumflex artery if the previously stented right coronary artery is noted to be patent. This has been discussed with interventionalist and will be performed tomorrow around noon. * 2. Coronary artery bypass surgery * Patient is status post coronary artery bypass surgery with his anatomy as described above. * 3. Hypertension * Blood pressure appears to be under good control will continue current medical therapy. * 4. Hyperlipidemia * Continue with aggressive risk factor modification. * * Will hold off on anticoagulation for now. * * Thank you for allowing me to participate in the care of your patient. Please don't hesitate to call if any issues arise
--- NOTE | 2018-05-18 18:03 | PCM.HP.STD ---
<Amaya Phipps - Last Filed: 05/18/18 18:57> Problem List (1) NSTEMI (non-ST elevated myocardial infarction) Status: Acute (2) Essential (primary) hypertension Status: Chronic (3) Secondary pulmonary arterial hypertension Status: Chronic (4) H/O coronary artery bypass surgery Status: Chronic Comment: CABG X 5 vessels: CASTILLO to LAD,left radial artery to RCA, SVG to first snd second DX branches of the LAD and SVG to the lateral CX which had aberrant origin from the RCA 09/12/2000 (5) History of coronary artery stent placement Status: Chronic Comment: PTCA/EASTON distal RCA with a 3.5 x 38 Promus Syergy and EASTON mid RCA with a 4.0 x 32 Promus Synergy Stent 05/13/18 EASTON-Prox LAD w/ 3.5 mm x 20 mm Promus Stent 08/27/12 [id number] & proximal RCA 06/21/2002 (6) 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 Status: Chronic (7) 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 (8) Cellulitis Status: Resolved Qualifiers: Site of cellulitis: extremity Site of cellulitis of extremity: lower extremity Laterality: unspecified laterality Qualified Code(s): L03.119 - Cellulitis of unspecified part of limb (9) Atherosclerotic heart disease of [place] coronary artery with other forms of angina pectoris Status: Chronic (10) Right pulmonary embolus Status: Resolved (11) Stroke Status: Chronic Qualifiers: Laterality of affected vessel: unspecified (12) Hyperlipidemia Status: Chronic Qualifiers: Hyperlipidemia type: unspecified Qualified Code(s): E78.5 - Hyperlipidemia, unspecified History of Present Illness Date of Admission: 05/18/18 Chief Complaint: Chest pain. The patient is a 82 year old M who presents emergency room due to chest pain. Patient was recently discharged 05/14/2018 following NSTEMI in which she underwent angioplasty and stenting of the right coronary artery. Last evening, patient developed chest pain with associated dizziness and shortness of breath. He denies pain radiation. He reports chest pain felt similar to recent admission with NSTEMI. Patient follows with Dr. Alcala. Patient states he followed up with primary care physician this morning who completed an EKG which was found to be abnormal and he was referred to the emergency room at that time. His past medical history includes CAD status post CABG and stents, hypertension, hyperlipidemia, BPH, history of pulmonary embolism on anticoagulation with Coumadin, GERD. Past Medical History Past Medical History (Chronic Problems): Chronic Problems (Last Updated 05/13/18 @ 17:19 by Lena Holder) Essential (primary) hypertension (Chronic) Secondary pulmonary arterial hypertension (Chronic) H/O coronary artery bypass surgery (Chronic 09/12/00) CABG X 5 vessels: CASTILLO to LAD,left radial artery to RCA, SVG to first snd second DX branches of the LAD and SVG to the lateral CX which had aberrant origin from the RCA 09/12/2000 History of coronary artery stent placement (Chronic 05/13/18) PTCA/EASTON distal RCA with a 3.5 x 38 Promus Syergy and EASTON mid RCA with a 4.0 x 32 Promus Synergy Stent 05/13/18 EASTON-Prox LAD w/ 3.5 mm x 20 mm Promus Stent 08/27/12 [id number] & proximal RCA 06/21/2002 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) 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 (Chronic) Stroke (Chronic) Hyperlipidemia (Chronic) Medical History: Medical History (Last Updated 05/13/18 @ 17:19 by Lena Holder) Essential (primary) hypertension (Chronic) I10 Secondary pulmonary arterial hypertension (Chronic) I27.21 Atherosclerotic heart disease of [place] coronary artery with other forms of angina pectoris (Chronic) I25.118 Stroke (Chronic) I63.9 Hyperlipidemia (Chronic) E78.5 Right pulmonary embolus (Resolved) I26.99 Congestive heart failure (Inactive) I50.9 Systolic dysfunction Family history of hypertension (Inactive) 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) Z79.899 Precordial chest pain (Inactive) R07.2 Pulmonary hypertension (Inactive) 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 Allergies diazepam [From Valium] Allergy (Intermediate, Verified 05/18/18 16:06) Other HALLUCINATIONS morphine Allergy (Intermediate, Verified 05/18/18 16:06) Other TWITCHES Home Medications: Ambulatory Orders Medication Instructions Recorded Aspirin [Aspirin, Baby] 81 mg PO DAILY@0800 06/23/13 Metoprolol(XL)Succ [Toprol Xl 50 mg PO DAILY 06/23/13 (Beta Luis Felipe)] Cetirizine HCl [Zyrtec] 10 mg PO DAILY 03/25/15 Finasteride [Proscar] 5 mg PO DAILY 03/25/15 Isosorbide Mononitrate [Isosorbide 60 mg PO DAILY 03/25/15 Mononitrate ER] Multivit-Min/FA/Lycopen/Lutein 1 ea PO DAILY 03/25/15 [Centrum Silver Tablet] atorvastatin 40 mg tablet 40 mg PO QHS tab 05/08/17 lubiprostone 24 mcg capsule 24 mcg PO BID cap 05/08/17 magnesium oxide 400 mg (241.3 mg 400 mg PO QDAY tab 05/08/17 magnesium) tablet pantoprazole 20 mg tablet,delayed 40 mg PO DAILY 05/08/17 release warfarin 5 mg tablet 5 mg PO .COMPLEX tab 06/05/17 furosemide 40 mg tablet 40 mg PO DAILY tab 12/05/17 tamsulosin 0.4 mg capsule 0.4 mg PO DAILY 30 Days #30 12/05/17 Albuterol IH (ProAir) [Proair Hfa] 2 puff INHALATION Q4H PRN PRN 05/10/18 Folic Acid 0.4 mg PO DAILY@0800 05/10/18 Travoprost 0.004% [Travatan-Z 1 drop EACH EYE QHS 05/10/18 0.004% Eye Drop] Varicella-Zoster Ge/As01b/Pf 50 mcg IM . DIRECTED 05/10/18 [Shingrix Vial Kit] Ticagrelor [Brilinta] 90 mg PO BID #180 tablet 05/14/18 Surgical History: Surgical History (Last Reviewed 05/18/18 @ 18:05 by LUCIA Prieto) H/O coronary artery bypass surgery (Chronic) Onset Date: 09/12/00 Z95.1 CABG X 5 vessels: CASTILLO to LAD,left radial artery to RCA, SVG to first snd second DX branches of the LAD and SVG to the lateral CX which had aberrant origin from the RCA 09/12/2000 History of coronary artery stent placement (Chronic) Onset Date: 05/13/18 Z95.5 PTCA/EASTON distal RCA with a 3.5 x 38 Promus Syergy and EASTON mid RCA with a 4.0 x 32 Promus Synergy Stent 05/13/18 EASTON-Prox LAD w/ 3.5 mm x 20 mm Promus Stent 08/27/12 [id number] & proximal RCA 06/21/2002 History of repair of hiatal hernia Z98.890, Z87.19 Surgical History: coronary bypass surgery, total hip arthroplasty, - - Hiatal hernia surgery. Lives: Spouse/ Significant Other Smoking Status: Former smoker Alcohol: None Drugs: None - *Family History Maternal Family History: Family History (Last Reviewed 05/18/18 @ 18:06 by LUCIA Prieto) Father No problems noted. Mother Cancer Brother Throat cancer Brother COPD (chronic obstructive pulmonary disease) Brother No problems noted. Sister COPD (chronic obstructive pulmonary disease) Heart disease Sister COPD (chronic obstructive pulmonary disease) Paternal Family History: Family History (Last Reviewed 05/18/18 @ 18:06 by LUCIA Prieto) Father No problems noted. Mother Cancer Brother Throat cancer Brother COPD (chronic obstructive pulmonary disease) Brother No problems noted. Sister COPD (chronic obstructive pulmonary disease) Heart disease Sister COPD (chronic obstructive pulmonary disease) Review of Systems Constitutional: Denies: Chills, Fever, Weight Change HEENT: Denies: Head Aches, Sinus Congestion, Sinus Drainage Cardiovascular: Reports: Chest Pain, Light Headedness. Denies: Palpitations, Syncope Respiratory: Denies: Cough, Shortness of breath at rest, Sputum production Gastrointestinal: Denies: Abdominal Pain, Nausea, Vomiting Genitourinary: Denies: Dysuria Musculoskeletal: Denies: Joint Pain, Joint Tenderness Skin: Denies: Rash, Wounds Neurological: Denies: Numbness, Tingling, Focal weakness Psychiatric: Denies: Anxiety, Depression, Homicidal Ideations, Suicidal Ideations Hematologic/ Lymphatic: Denies: Easy Bruising, Easy Bleeding VTE Information - Inpt Only VTE Present on Admission: No VTE Mechan Device Prophylaxis: None VTE Pharm Prophylaxis ordered?: Yes - Physical Exam General: Alert, Oriented x3, Cooperative HEENT: Atraumatic, PERRLA, EOMI, Normocephalic Neck: Supple, No JVD, Negative Carotid Bruits Lungs: Clear to auscultation, Normal air movement Cardiovascular: Regular rate, Regular Rhythm, Normal S1, Normal S2, No murmurs Abdomen: Bowel Sounds Present, Soft, Non Tender, Non-Distended Extremities: No clubbing, No cyanosis, No edema, Capillary Refill Less than 3 Seconds Skin: No rashes, No breakdown, - - Chronic venous stasis skin changes bilateral lower extremities with superficial ulcerations. Musculoskeletal: No Tenderness to Palpation of Joints or Extremities Neurological: Cranial nerves II-XII grossly intact, Neuro grossly intact Psych/Mental Status: Normal Affect, Appropriate Vital Signs Temp Pulse Resp BP Pulse Ox 98.3 F 65 23 H 124/74 H 99 05/18/18 16:01 05/18/18 17:55 05/18/18 17:55 05/18/18 17:55 05/18/18 17:55 Oxygen Flow Rate (L/min) 2 Oxygen Delivery Method Nasal Cannula Weight: 225 lb 12.054 oz Body Mass Index (BMI) 35.3 Laboratory Tests Past 24 Hrs 05/18/18 05/18/18 16:15 16:15 PT 14.0 INR 1.1 Troponin I 1.260 H* Assessment/Plan All Active Problems (Last Updated 05/13/18 @ 17:19 by Lena Holder) NSTEMI (non-ST elevated myocardial infarction) (Acute) Cellulitis (Resolved) Cellulitis and abscess of left lower extremity (Resolved) Chest pain (Resolved) Right pulmonary embolus (Resolved) 1. Acute NSTEMI-cardiology consulted from ER. Patient recently underwent left heart cath 05/13/2018 which he underwent angioplasty and stenting of the right coronary artery. Plan for cardiac catheterization tomorrow to reevaluate right coronary artery and to consider angioplasty to circumflex artery if recently stented right coronary artery is patent. Continue aspirin, statin, Brilinta, beta-luis felipe, isosorbide. 2. CAD status post CABG August 2000 and stents-Continue aspirin, statin, Brilinta, beta-luis felipe, isosorbide. 3. Hypertension-stable, continue current regimen. 4. Hyperlipidemia-continue statin. 5. History of pulmonary embolism-on anticoagulation with Coumadin. 6. 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 7. BPH-continue Proscar regimen. DVT prophylaxis-Coumadin This patient was seen by LUCIA Prieto under the supervision of Dr. Minor. <Praveen Minor - Last Filed: 05/18/18 19:11> History of Present Illness The patient is a 82 year old M [] Past Medical History Medical History: Medical History (Last Updated 05/13/18 @ 17:19 by Lena Holder) Essential (primary) hypertension (Chronic) I10 Secondary pulmonary arterial hypertension (Chronic) I27.21 Atherosclerotic heart disease of [place] coronary artery with other forms of angina pectoris (Chronic) I25.118 Stroke (Chronic) I63.9 Hyperlipidemia (Chronic) E78.5 Right pulmonary embolus (Resolved) I26.99 Congestive heart failure (Inactive) I50.9 Systolic dysfunction Family history of hypertension (Inactive) Z82.49 half-way use of drug (Inactive) Z79.899 Precordial chest pain (Inactive) R07.2 Pulmonary hypertension (Inactive) 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 Allergies diazepam [From Valium] Allergy (Intermediate, Verified 05/18/18 16:06) Other HALLUCINATIONS morphine Allergy (Intermediate, Verified 05/18/18 16:06) Other TWITCHES Surgical History: Surgical History (Last Reviewed 05/18/18 @ 18:05 by LUCIA Prieto) H/O coronary artery bypass surgery (Chronic) Onset Date: 09/12/00 Z95.1 CABG X 5 vessels: CASTILLO to LAD,left radial artery to RCA, SVG to first snd second DX branches of the LAD and SVG to the lateral CX which had aberrant origin from the RCA 09/12/2000 History of coronary artery stent placement (Chronic) Onset Date: 05/13/18 Z95.5 PTCA/EASTON distal RCA with a 3.5 x 38 Promus Syergy and EASTON mid RCA with a 4.0 x 32 Promus Synergy Stent 05/13/18 EASTON-Prox LAD w/ 3.5 mm x 20 mm Promus Stent 08/27/12 [id number] & proximal RCA 06/21/2002 History of repair of hiatal hernia Z98.890, Z87.19 - *Family History Maternal Family History: Family History (Last Reviewed 05/18/18 @ 18:06 by LUCIA Prieto) Father No problems noted. Mother Cancer Brother Throat cancer Brother COPD (chronic obstructive pulmonary disease) Brother No problems noted. Sister COPD (chronic obstructive pulmonary disease) Heart disease Sister COPD (chronic obstructive pulmonary disease) Paternal Family History: Family History (Last Reviewed 05/18/18 @ 18:06 by Amaya Phipps NP-C) Father No problems noted. Mother Cancer Brother Throat cancer Brother COPD (chronic obstructive pulmonary disease) Brother No problems noted. Sister COPD (chronic obstructive pulmonary disease) Heart disease Sister COPD (chronic obstructive pulmonary disease) - Physical Exam Vital Signs Temp Pulse Resp BP Pulse Ox 97.5 F L 62 16 142/78 H 100 05/18/18 18:48 05/18/18 18:48 05/18/18 18:48 05/18/18 18:48 05/18/18 18:48 Oxygen Flow Rate (L/min) 2 Oxygen Delivery Method Nasal Cannula Weight: 218 lb 11.177 oz Body Mass Index (BMI) 34.2 Laboratory Tests Past 24 Hrs 05/18/18 05/18/18 16:15 16:15 PT 14.0 INR 1.1 Troponin I 1.260 H* Code Visit Addendum: Dr. Minor I personally examined the patient and reviewed the chart. I agree with the above. 82-year-old male who was recently discharged after having a stent placed for an NSTEMI, presents with chest pain. He was found to have an elevated troponin in the ER. Cardiology was consulted and they recommend undergoing a cardiac cath to reevaluate his right circulation. We will continue with his Brilinta and his aspirin, will hold his Coumadin for procedure in the morning. Otherwise we will also continue with aggressive medical management of his risk factors. Inpatient E&M: 95437 Init Hosp L3
--- NOTE | 2018-05-18 18:13 | HP.PCM_ITS ---
<Amaya Phipps - Last Filed: 05/18/18 18:57> Problem List (1) NSTEMI (non-ST elevated myocardial infarction) Status: Acute (2) Essential (primary) hypertension Status: Chronic (3) Secondary pulmonary arterial hypertension Status: Chronic (4) H/O coronary artery bypass surgery Status: Chronic Comment: CABG X 5 vessels: CASTILLO to LAD,left radial artery to RCA, SVG to first snd second DX branches of the LAD and SVG to the lateral CX which had aberrant origin from the RCA 09/12/2000 (5) History of coronary artery stent placement Status: Chronic Comment: PTCA/EASTON distal RCA with a 3.5 x 38 Promus Syergy and ESATON mid RCA with a 4.0 x 32 Promus Synergy Stent 05/13/18 EASTON-Prox LAD w/ 3.5 mm x 20 mm Promus Stent 08/27/12 [id number] & proximal RCA 06/21/2002 (6) 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 Status: Chronic (7) 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 (8) Cellulitis Status: Resolved Qualifiers: Site of cellulitis: extremity Site of cellulitis of extremity: lower extremity Laterality: unspecified laterality Qualified Code(s): L03.119 - Cellulitis of unspecified part of limb (9) Atherosclerotic heart disease of [place] coronary artery with other forms of angina pectoris Status: Chronic (10) Right pulmonary embolus Status: Resolved (11) Stroke Status: Chronic Qualifiers: Laterality of affected vessel: unspecified (12) Hyperlipidemia Status: Chronic Qualifiers: Hyperlipidemia type: unspecified Qualified Code(s): E78.5 - Hyperlipidemia, unspecified History of Present Illness Date of Admission: 05/18/18 Chief Complaint: Chest pain. The patient is a 82 year old M who presents emergency room due to chest pain. Patient was recently discharged 05/14/2018 following NSTEMI in which she underwent angioplasty and stenting of the right coronary artery. Last evening, patient developed chest pain with associated dizziness and shortness of breath. He denies pain radiation. He reports chest pain felt similar to recent admission with NSTEMI. Patient follows with Dr. Alcala. Patient states he followed up with primary care physician this morning who completed an EKG which was found to be abnormal and he was referred to the emergency room at that time. His past medical history includes CAD status post CABG and stents, hypertension, hyperlipidemia, BPH, history of pulmonary embolism on anticoagulation with Coumadin, GERD. Past Medical History Past Medical History (Chronic Problems): Chronic Problems (Last Updated 05/13/18 @ 17:19 by Lena Holder) Essential (primary) hypertension (Chronic) Secondary pulmonary arterial hypertension (Chronic) H/O coronary artery bypass surgery (Chronic 09/12/00) CABG X 5 vessels: CASTILLO to LAD,left radial artery to RCA, SVG to first snd second DX branches of the LAD and SVG to the lateral CX which had aberrant origin from the RCA 09/12/2000 History of coronary artery stent placement (Chronic 05/13/18) PTCA/EASTON distal RCA with a 3.5 x 38 Promus Syergy and EASTON mid RCA with a 4.0 x 32 Promus Synergy Stent 05/13/18 EASTON-Prox LAD w/ 3.5 mm x 20 mm Promus Stent 08/27/12 [id number] & proximal RCA 06/21/2002 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) Foraminal stenosis of lumbar region (Chronic) Atherosclerotic heart disease of [place] coronary artery with other forms of angina pectoris (Chronic) Stroke (Chronic) Hyperlipidemia (Chronic) Medical History: Medical History (Last Updated 05/13/18 @ 17:19 by Lena Holder) Essential (primary) hypertension (Chronic) I10 Secondary pulmonary arterial hypertension (Chronic) I27.21 Atherosclerotic heart disease of [place] coronary artery with other forms of angina pectoris (Chronic) I25.118 Stroke (Chronic) I63.9 Hyperlipidemia (Chronic) E78.5 Right pulmonary embolus (Resolved) I26.99 Congestive heart failure (Inactive) I50.9 Systolic dysfunction Family history of hypertension (Inactive) 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 (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) Z79.899 Precordial chest pain (Inactive) R07.2 Pulmonary hypertension (Inactive) 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 Allergies diazepam [From Valium] Allergy (Intermediate, Verified 05/18/18 16:06) Other HALLUCINATIONS morphine Allergy (Intermediate, Verified 05/18/18 16:06) Other TWITCHES Home Medications: Ambulatory Orders Medication Instructions Recorded Aspirin [Aspirin, Baby] 81 mg PO DAILY@0800 06/23/13 Metoprolol(XL)Succ [Toprol Xl 50 mg PO DAILY 06/23/13 (Beta Luis Felipe)] Cetirizine HCl [Zyrtec] 10 mg PO DAILY 03/25/15 Finasteride [Proscar] 5 mg PO DAILY 03/25/15 Isosorbide Mononitrate [Isosorbide 60 mg PO DAILY 03/25/15 Mononitrate ER] Multivit-Min/FA/Lycopen/Lutein 1 ea PO DAILY 03/25/15 [Centrum Silver Tablet] atorvastatin 40 mg tablet 40 mg PO QHS tab 05/08/17 lubiprostone 24 mcg capsule 24 mcg PO BID cap 05/08/17 magnesium oxide 400 mg (241.3 mg 400 mg PO QDAY tab 05/08/17 magnesium) tablet pantoprazole 20 mg tablet,delayed 40 mg PO DAILY 05/08/17 release warfarin 5 mg tablet 5 mg PO .COMPLEX tab 06/05/17 furosemide 40 mg tablet 40 mg PO DAILY tab 12/05/17 tamsulosin 0.4 mg capsule 0.4 mg PO DAILY 30 Days #30 12/05/17 Albuterol IH (ProAir) [Proair Hfa] 2 puff INHALATION Q4H PRN PRN 05/10/18 Folic Acid 0.4 mg PO DAILY@0800 05/10/18 Travoprost 0.004% [Travatan-Z 1 drop EACH EYE QHS 05/10/18 0.004% Eye Drop] Varicella-Zoster Ge/As01b/Pf 50 mcg IM . DIRECTED 05/10/18 [Shingrix Vial Kit] Ticagrelor [Brilinta] 90 mg PO BID #180 tablet 05/14/18 Surgical History: Surgical History (Last Reviewed 05/18/18 @ 18:05 by LUCIA Prieto) H/O coronary artery bypass surgery (Chronic) Onset Date: 09/12/00 Z95.1 CABG X 5 vessels: CASTILLO to LAD,left radial artery to RCA, SVG to first snd second DX branches of the LAD and SVG to the lateral CX which had aberrant origin from the RCA 09/12/2000 History of coronary artery stent placement (Chronic) Onset Date: 05/13/18 Z95.5 PTCA/EASTON distal RCA with a 3.5 x 38 Promus Syergy and EASTON mid RCA with a 4.0 x 32 Promus Synergy Stent 05/13/18 EASTON-Prox LAD w/ 3.5 mm x 20 mm Promus Stent 08/27/12 ANF-Pydof-iutmju & proximal RCA 06/21/2002 History of repair of hiatal hernia Z98.890, Z87.19 Surgical History: coronary bypass surgery, total hip arthroplasty, - - Hiatal hernia surgery. Lives: Spouse/ Significant Other Smoking Status: Former smoker Alcohol: None Drugs: None - *Family History Maternal Family History: Family History (Last Reviewed 05/18/18 @ 18:06 by LUCIA Prieto) Father No problems noted. Mother Cancer Brother Throat cancer Brother COPD (chronic obstructive pulmonary disease) Brother No problems noted. Sister COPD (chronic obstructive pulmonary disease) Heart disease Sister COPD (chronic obstructive pulmonary disease) Paternal Family History: Family History (Last Reviewed 05/18/18 @ 18:06 by LUCIA Prieto) Father No problems noted. Mother Cancer Brother Throat cancer Brother COPD (chronic obstructive pulmonary disease) Brother No problems noted. Sister COPD (chronic obstructive pulmonary disease) Heart disease Sister COPD (chronic obstructive pulmonary disease) Review of Systems Constitutional: Denies: Chills, Fever, Weight Change HEENT: Denies: Head Aches, Sinus Congestion, Sinus Drainage Cardiovascular: Reports: Chest Pain, Light Headedness. Denies: Palpitations, Syncope Respiratory: Denies: Cough, Shortness of breath at rest, Sputum production Gastrointestinal: Denies: Abdominal Pain, Nausea, Vomiting Genitourinary: Denies: Dysuria Musculoskeletal: Denies: Joint Pain, Joint Tenderness Skin: Denies: Rash, Wounds Neurological: Denies: Numbness, Tingling, Focal weakness Psychiatric: Denies: Anxiety, Depression, Homicidal Ideations, Suicidal Ideations Hematologic/ Lymphatic: Denies: Easy Bruising, Easy Bleeding VTE Information - Inpt Only VTE Present on Admission: No VTE Mechan Device Prophylaxis: None VTE Pharm Prophylaxis ordered?: Yes - Physical Exam General: Alert, Oriented x3, Cooperative HEENT: Atraumatic, PERRLA, EOMI, Normocephalic Neck: Supple, No JVD, Negative Carotid Bruits Lungs: Clear to auscultation, Normal air movement Cardiovascular: Regular rate, Regular Rhythm, Normal S1, Normal S2, No murmurs Abdomen: Bowel Sounds Present, Soft, Non Tender, Non-Distended Extremities: No clubbing, No cyanosis, No edema, Capillary Refill Less than 3 Seconds Skin: No rashes, No breakdown, - - Chronic venous stasis skin changes bilateral lower extremities with superficial ulcerations. Musculoskeletal: No Tenderness to Palpation of Joints or Extremities Neurological: Cranial nerves II-XII grossly intact, Neuro grossly intact Psych/Mental Status: Normal Affect, Appropriate Vital Signs Temp Pulse Resp BP Pulse Ox 98.3 F 65 23 H 124/74 H 99 05/18/18 16:01 05/18/18 17:55 05/18/18 17:55 05/18/18 17:55 05/18/18 17:55 Oxygen Flow Rate (L/min) 2 Oxygen Delivery Method Nasal Cannula Weight: 225 lb 12.054 oz Body Mass Index (BMI) 35.3 Laboratory Tests Past 24 Hrs 05/18/18 05/18/18 16:15 16:15 PT 14.0 INR 1.1 Troponin I 1.260 H* Assessment/Plan All Active Problems (Last Updated 05/13/18 @ 17:19 by Lena Holder) NSTEMI (non-ST elevated myocardial infarction) (Acute) Cellulitis (Resolved) Cellulitis and abscess of left lower extremity (Resolved) Chest pain (Resolved) Right pulmonary embolus (Resolved) 1. Acute NSTEMI-cardiology consulted from ER. Patient recently underwent left heart cath 05/13/2018 which he underwent angioplasty and stenting of the right coronary artery. Plan for cardiac catheterization tomorrow to reevaluate right coronary artery and to consider angioplasty to circumflex artery if recently stented right coronary artery is patent. Continue aspirin, statin, Brilinta, beta-luis felipe, isosorbide. 2. CAD status post CABG August 2000 and stents-Continue aspirin, statin, Brilinta, beta-luis felipe, isosorbide. 3. Hypertension-stable, continue current regimen. 4. Hyperlipidemia-continue statin. 5. History of pulmonary embolism-on anticoagulation with Coumadin. 6. 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 7. BPH-continue Proscar regimen. DVT prophylaxis-Coumadin This patient was seen by LUCIA Prieto under the supervision of Dr. Minor. <Praveen Minor - Last Filed: 05/18/18 19:11> History of Present Illness The patient is a 82 year old M [] Past Medical History Medical History: Medical History (Last Updated 05/13/18 @ 17:19 by Lena Holder) Essential (primary) hypertension (Chronic) I10 Secondary pulmonary arterial hypertension (Chronic) I27.21 Atherosclerotic heart disease of [place] coronary artery with other forms of angina pectoris (Chronic) I25.118 Stroke (Chronic) I63.9 Hyperlipidemia (Chronic) E78.5 Right pulmonary embolus (Resolved) I26.99 Congestive heart failure (Inactive) I50.9 Systolic dysfunction Family history of hypertension (Inactive) Z82.49 intermediate use of drug (Inactive) Z79.899 Precordial chest pain (Inactive) R07.2 Pulmonary hypertension (Inactive) 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 Allergies diazepam [From Valium] Allergy (Intermediate, Verified 05/18/18 16:06) Other HALLUCINATIONS morphine Allergy (Intermediate, Verified 05/18/18 16:06) Other TWITCHES Surgical History: Surgical History (Last Reviewed 05/18/18 @ 18:05 by LUCIA Prieto) H/O coronary artery bypass surgery (Chronic) Onset Date: 09/12/00 Z95.1 CABG X 5 vessels: CASTILLO to LAD,left radial artery to RCA, SVG to first snd second DX branches of the LAD and SVG to the lateral CX which had aberrant origin from the RCA 09/12/2000 History of coronary artery stent placement (Chronic) Onset Date: 05/13/18 Z95.5 PTCA/EASTON distal RCA with a 3.5 x 38 Promus Syergy and EASTON mid RCA with a 4.0 x 32 Promus Synergy Stent 05/13/18 EASTON-Prox LAD w/ 3.5 mm x 20 mm Promus Stent 08/27/12 IMK-Pomcc-jsqjvo & proximal RCA 06/21/2002 History of repair of hiatal hernia Z98.890, Z87.19 - *Family History Maternal Family History: Family History (Last Reviewed 05/18/18 @ 18:06 by LUCIA Prieto) Father No problems noted. Mother Cancer Brother Throat cancer Brother COPD (chronic obstructive pulmonary disease) Brother No problems noted. Sister COPD (chronic obstructive pulmonary disease) Heart disease Sister COPD (chronic obstructive pulmonary disease) Paternal Family History: Family History (Last Reviewed 05/18/18 @ 18:06 by Amaya Phipps NP-C) Father No problems noted. Mother Cancer Brother Throat cancer Brother COPD (chronic obstructive pulmonary disease) Brother No problems noted. Sister COPD (chronic obstructive pulmonary disease) Heart disease Sister COPD (chronic obstructive pulmonary disease) - Physical Exam Vital Signs Temp Pulse Resp BP Pulse Ox 97.5 F L 62 16 142/78 H 100 05/18/18 18:48 05/18/18 18:48 05/18/18 18:48 05/18/18 18:48 05/18/18 18:48 Oxygen Flow Rate (L/min) 2 Oxygen Delivery Method Nasal Cannula Weight: 218 lb 11.177 oz Body Mass Index (BMI) 34.2 Laboratory Tests Past 24 Hrs 05/18/18 05/18/18 16:15 16:15 PT 14.0 INR 1.1 Troponin I 1.260 H* Code Visit Addendum: Dr. Minor I personally examined the patient and reviewed the chart. I agree with the above. 82-year-old male who was recently discharged after having a stent placed for an NSTEMI, presents with chest pain. He was found to have an elevated troponin in the ER. Cardiology was consulted and they recommend undergoing a cardiac cath to reevaluate his right circulation. We will continue with his Stacey linta and his aspirin, will hold his Coumadin for procedure in the morning. Otherwise we will also continue with aggressive medical management of his risk factors. Inpatient E&M: 24783 Init Hosp L3
--- NOTE | 2018-05-18 18:40 | EKG12_ITS ---
Test Reason : CP Blood Pressure : / mmHG Vent. Rate : 074 BPM Atrial Rate : 074 BPM P-R Int : 178 ms QRS Dur : 106 ms QT Int : 384 ms P-R-T Axes : 022 -50 -23 degrees QTc Int : 426 ms Normal sinus rhythm Leftward axis Incomplete right bundle branch block Left anterior fascicular block Moderate voltage criteria for LVH, may be normal variant Nonspecific T wave abnormality Poor R wave progression Abnormal ECG Confirmed by HELADIO GARZON, LIBIA ([id number]), city editor ISABELLE WYMAN ([id number]) on 05/20/2018 9:56:31 AM Referred By: YUNIOR Confirmed By:LIBIA LEIJA MD
[2018-05-18] MEDS: Atorvastatin Calcium 40 MG Tablet PO (20:45)
[2018-05-18] MEDS: TICAGRELOR 90 MG TABLET PO (20:45)
[2018-05-18] MEDS: Latanoprost 0.005% 1 Bottle 1 DRP EACH EYE (20:46)
[2018-05-18] MEDS: 0.9% NaCl Peripheral Flush Adult/Peds IV (21:16)
[2018-05-19] VITALS (25 sets, daily range): BP systolic 85–192; BP diastolic 38–78; PULSE 58–72; RESP 12–23; TEMP 36.5–36.8; O2SAT 97–100
--- NOTE | 2018-05-19 01:42 | NURSING ---
00:50 RUQ abd dressing saturated with bright red blood. Pinhole examined. Still oozing. Dsg replaced with folded 4x4 and elastic tape to aid with pressure. Will cont to monitor for bleeding.
[2018-05-19 05:24] LABS: Absolute Lymphocyte Count 1.87 X10^3/ul (0.83-4.51); Basophil# 0.02 X10^3/uL; Basophil% 0.3 % (0-1); Eosinophil# 0.29 X10^3/uL; Eosinophils% 4.4 % (0-5); Hematocrit 35.6 % (40-54); Hemoglobin 11.2 g/dl (13.0-16.5); Lymphocyte # 1.87 X10^3/ul (4.0); Lymphocyte % 28.4 % (19-41); Mean Corp Hgb Conc 31.5 g/gl (32-36); Mean Corpuscular Hgb 28.3 pg (27.0-32.0); Mean Corpuscular Volume 89.9 fL (80-94); Mean Platelet Vol. 9.6 fl (6.2-12.0); Monocyte% 6.1 % (0-10); Neutrophil % 60.6 % (47-70); Platelet Count 226 K/mm3 (150-450); RBC Distribution Width CV 16.6 % (11.6-14.6); RBC Distribution Width SD 55.2 fl (35.1-43.9); Red Blood Count 3.96 M/mm3 (4.6-6.2); White Blood Count 6.6 K/mm3 (4.4-11.0)
[2018-05-19 05:27] LABS: POSITIVE COUNT NO; POSITIVE DIFFERENTIAL NO; POSITIVE MORPHOLOGY NO
[2018-05-19 05:35] LABS: Anion Gap 7 (5-15); BUN 16 mg/dL (7-18); BUN/Creat Ratio 14.7 RATIO (10-20); Calcium,Total 8.8 mg/dL (8.5-10.1); Chloride 108 mmol/L (98-107); Creatinine, Serum 1.09 mg/dL (0.70-1.30); EST Glomerular Filtration Rate 69 mL/min (>60); Est Glom Filt Rate - Afr Amer 83 mL/min (>60); Estimated Creatinine Clearance 49.69 ml/min; Glucose 100 mg/dL (74-106); Potassium 4.8 mmol/L (3.5-5.1); Sodium Level 139 mmol/L (136-145)
[2018-05-19 05:37] LABS: International Normalized Ratio 1.1; Prothrombin Time (Protime)PT. 14.4 SECONDS (11.7-14.9)
[2018-05-19 05:38] LABS: Partial Thromboplast Time 41.9 Seconds (24.1-36.2)
--- NOTE | 2018-05-19 05:46 | NURSING ---
0530 abd dressing saturated with isaac red blood. Some very small lines of clots noted on the gauze. Pts dsg removed. Pinhole still oozing very slowly. 2 4x4 folded gauze applied with elastic bandage to make it tight for pressure. Will continue to monitor.
--- NOTE | 2018-05-19 05:55 | EKG12_ITS ---
Test Reason : AM EKG Blood Pressure : / mmHG Vent. Rate : 065 BPM Atrial Rate : 065 BPM P-R Int : 198 ms QRS Dur : 100 ms QT Int : 416 ms P-R-T Axes : 008 -51 -41 degrees QTc Int : 432 ms Normal sinus rhythm Incomplete right bundle branch block Left anterior fascicular block Minimal voltage criteria for LVH, may be normal variant T wave abnormality, consider inferolateral ischemia Abnormal ECG Confirmed by HELADIO GARZON, LIBIA ([id number]), editorial intern ISABELLE WYMAN ([id number] on 05/20/2018 10:09:36 AM Referred By: NIA Confirmed By:LIBIA LEIJA MD
[2018-05-19] MEDS: Metoprolol(XL)Succ 50 MG Tablet PO (06:42)
[2018-05-19] MEDS: Pantoprazole Sodium 20 MG Tablet 40 MG PO (06:42)
[2018-05-19] MEDS: Aspirin 81 MG TAB.CHEW PO (06:43)
[2018-05-19] MEDS: TICAGRELOR 90 MG TABLET PO ×2 (06:43→21:36)
[2018-05-19] MEDS: Isosorbide Mononitrate 60 MG Tablet PO (06:43)
[2018-05-19] MEDS: 0.9% Normal Saline 1,000 ML 15 ML IV ×2 (06:45→10:41)
[2018-05-19 07:35] LABS: Bacteria 0 SEEN /hpf (None Seen); Mucous, Urine 0 SEEN /hpf (<or=2+); Red Blood Cells-Urine 0 SEEN /hpf (0-5); Squamous Epithelial Cells - UA 0 SEEN /hpf (0-5); White Blood Cells 0 SEEN /hpf (0-5)
[2018-05-19 07:47] LABS: Color, Urine Straw (Yellow); Glucose, Dipstick Normal (Normal); Ketone-Dipstick Negative (Negative); Leukocyte Esterase-Dipstick Negative /ul (Negative); Nitrite-Dipstick Negative (Negative); Occult Blood-Urine Negative /ul (Negative); Protein-Dipstick Negative (Negative); Urine Bilirubin Dipstick Negative (Negative); Urine Clarity Clear (Clear); Urine Urobilinogen Normal (Normal)
--- NOTE | 2018-05-19 12:22 | PN_ITS ---
<Amaya Phipps - Last Filed: 05/19/18 12:22> Subjective: Patient seen and examined prior to undergoing cardiac cath. Mild chest pain overnight, he reports improvement overall. To undergo cardiac catheterization this afternoon. - Physical Exam General: Alert, Oriented x3, Cooperative HEENT: Atraumatic, PERRLA, EOMI, Normocephalic Neck: Supple, No JVD, Negative Carotid Bruits Lungs: Clear to auscultation, Normal air movement Cardiovascular: Regular rate, Regular Rhythm, Normal S1, Normal S2, No murmurs Abdomen: Bowel Sounds Present, Soft, Non Tender, Non-Distended Extremities: No clubbing, No cyanosis, No edema, Capillary Refill Less than 3 Seconds Skin: No rashes, No breakdown, - - Chronic venous stasis skin changes bilateral lower extremities with superficial ulcerations. Musculoskeletal: No Tenderness to Palpation of Joints or Extremities Neurological: Cranial nerves II-XII grossly intact, Neuro grossly intact Psych/Mental Status: Normal Affect, Appropriate Vital Signs Temp Pulse Resp BP Pulse Ox 98.2 F 62 20 H 122/71 H 97 05/19/18 06:32 05/19/18 07:00 05/19/18 06:32 05/19/18 06:42 05/19/18 06:32 Oxygen Flow Rate (L/min) 2 Oxygen Delivery Method Room Air Weight: 218 lb 11.177 oz Body Mass Index (BMI) 34.2 Intake and Output for Last 24 Hours 05/17/18 05/18/18 05/19/18 23:59 23:59 23:59 Intake Total 510 / 510 Output Total 875 / 875 Balance -365 / -365 Laboratory Tests Past 24 Hrs 05/18/18 05/18/18 05/18/18 16:15 16:15 19:20 WBC RBC Hgb Hct MCV MCH MCHC RDW RDW Differential Plt Count MPV Immature Gran % (Auto) Neut % (Auto) Lymph % (Auto) Jenkins % (Auto) Eos % (Auto) Baso % (Auto) Absolute Neuts (auto) Absolute Lymphs (auto) Total Counted PT 14.0 INR 1.1 APTT Sodium Potassium Chloride Carbon Dioxide Anion Gap BUN Creatinine Estim Creat Clear Calc Est GFR (MDRD) Af Amer Est GFR (MDRD) Non-Af BUN/Creatinine Ratio Glucose Calcium Troponin I 1.260 H* 1.510 H* Urine Color Urine Clarity Urine pH Ur Specific Bruno Urine Protein Urine Glucose (UA) Urine Ketones Urine Occult Blood Urine Nitrite Urine Bilirubin Urine Urobilinogen Ur Leukocyte Esterase Urine RBC Urine WBC Ur Squamous Epith Cells Urine Bacteria Urine Mucus 05/18/18 05/19/18 05/19/18 22:45 05:00 05:00 WBC 6.6 RBC 3.96 L Hgb 11.2 L Hct 35.6 L MCV 89.9 MCH 28.3 MCHC 31.5 L RDW 16.6 H RDW Differential 55.2 H Plt Count 226 MPV 9.6 Immature Gran % (Auto) 0.200 Neut % (Auto) 60.6 Lymph % (Auto) 28.4 Jenkins % (Auto) 6.1 Eos % (Auto) 4.4 Baso % (Auto) 0.3 Absolute Neuts (auto) 4.0 Absolute Lymphs (auto) 1.87 Total Counted Not Reportable PT INR APTT Sodium 139 Potassium 4.8 Chloride 108 H Carbon Dioxide 24.0 Anion Gap 7 BUN 16 Creatinine 1.09 Estim Creat Clear Calc 49.69 Est GFR (MDRD) Af Amer 83 Est GFR (MDRD) Non-Af 69 BUN/Creatinine Ratio 14.7 Glucose 100 Calcium 8.8 Troponin I 1.510 H* Urine Color Urine Clarity Urine pH Ur Specific Bruno Urine Protein Urine Glucose (UA) Urine Ketones Urine Occult Blood Urine Nitrite Urine Bilirubin Urine Urobilinogen Ur Leukocyte Esterase Urine RBC Urine WBC Ur Squamous Epith Cells Urine Bacteria Urine Mucus 05/19/18 05/19/18 05:00 07:30 WBC RBC Hgb Hct MCV MCH MCHC RDW RDW Differential Plt Count MPV Immature Gran % (Auto) Neut % (Auto) Lymph % (Auto) Jenkins % (Auto) Eos % (Auto) Baso % (Auto) Absolute Neuts (auto) Absolute Lymphs (auto) Total Counted PT 14.4 INR 1.1 APTT 41.9 H Sodium Potassium Chloride Carbon Dioxide Anion Gap BUN Creatinine Estim Creat Clear Calc Est GFR (MDRD) Af Amer Est GFR (MDRD) Non-Af BUN/Creatinine Ratio Glucose Calcium Troponin I Urine Color Straw Urine Clarity Clear Urine pH 8.0 Ur Specific Bruno 1.010 Urine Protein Negative Urine Glucose (UA) Normal Urine Ketones Negative Urine Occult Blood Negative Urine Nitrite Negative Urine Bilirubin Negative Urine Urobilinogen Normal Ur Leukocyte Esterase Negative Urine RBC 0 SEEN Urine WBC 0 SEEN Ur Squamous Epith Cells 0 SEEN Urine Bacteria 0 SEEN Urine Mucus 0 SEEN Medical Necessity - Tobacco Use Smoking Status: Former smoker Assessment/Plan All Active Problems (Last Updated 05/19/18 @ 16:49 by Lena Holder) NSTEMI (non-ST elevated myocardial infarction) (Acute) Cellulitis (Resolved) Cellulitis and abscess of left lower extremity (Resolved) Chest pain (Resolved) Right pulmonary embolus (Resolved) 1. Acute NSTEMI-cardiology consulted. Patient recently underwent left heart cath 05/13/2018 which he underwent angioplasty and stenting of the right coronary artery. Plan for cardiac catheterization today to reevaluate right coronary artery and to consider angioplasty to circumflex artery if recently stented right coronary artery is patent. Continue aspirin, statin, Brilinta, beta- maria e, isosorbide. 2. CAD status post CABG August 2000 and stents-Continue aspirin, statin, Brilinta, beta-maria e, isosorbide. 3. Hypertension-stable, continue current regimen. 4. Hyperlipidemia-continue statin. 5. History of pulmonary embolism-on anticoagulation with Coumadin. 6. 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 7. BPH-continue Proscar regimen. DVT prophylaxis-Coumadin on hold pending cath. This patient was seen by LUCIA Prieto under the supervision of Dr. Jean Baptiste. <Kelsey Jean Baptiste - Last Filed: 05/19/18 17:01> - Physical Exam Vital Signs Temp Pulse Resp BP Pulse Ox 97.7 F L 58 L 15 114/57 L 99 05/19/18 13:45 05/19/18 16:00 05/19/18 16:00 05/19/18 16:00 05/19/18 16:00 Oxygen Flow Rate (L/min) 2 Oxygen Delivery Method Room Air Weight: 99.2 kg Body Mass Index (BMI) 34.2 Intake and Output for Last 24 Hours 05/17/18 05/18/18 05/19/18 23:59 23:59 23:59 Intake Total 510 / 510 Output Total 875 / 875 Balance -365 / -365 Laboratory Tests Past 24 Hrs 05/18/18 05/18/18 05/18/18 16:15 16:15 19:20 WBC RBC Hgb Hct MCV MCH MCHC RDW RDW Differential Plt Count MPV Immature Gran % (Auto) Neut % (Auto) Lymph % (Auto) Jenkins % (Auto) Eos % (Auto) Baso % (Auto) Absolute Neuts (auto) Absolute Lymphs (auto) Total Counted PT 14.0 INR 1.1 APTT Activated Clotting Time Sodium Potassium Chloride Carbon Dioxide Anion Gap BUN Creatinine Estim Creat Clear Calc Est GFR (MDRD) Af Amer Est GFR (MDRD) Non-Af BUN/Creatinine Ratio Glucose Calcium Troponin I 1.260 H* 1.510 H* Urine Color Urine Clarity Urine pH Ur Specific Bruno Urine Protein Urine Glucose (UA) Urine Ketones Urine Occult Blood Urine Nitrite Urine Bilirubin Urine Urobilinogen Ur Leukocyte Esterase Urine RBC Urine WBC Ur Squamous Epith Cells Urine Bacteria Urine Mucus 05/18/18 05/19/18 05/19/18 22:45 05:00 05:00 WBC 6.6 RBC 3.96 L Hgb 11.2 L Hct 35.6 L MCV 89.9 MCH 28.3 MCHC 31.5 L RDW 16.6 H RDW Differential 55.2 H Plt Count 226 MPV 9.6 Immature Gran % (Auto) 0.200 Neut % (Auto) 60.6 Lymph % (Auto) 28.4 Jenkins % (Auto) 6.1 Eos % (Auto) 4.4 Baso % (Auto) 0.3 Absolute Neuts (auto) 4.0 Absolute Lymphs (auto) 1.87 Total Counted Not Reportable PT INR APTT Activated Clotting Time Sodium 139 Potassium 4.8 Chloride 108 H Carbon Dioxide 24.0 Anion Gap 7 BUN 16 Creatinine 1.09 Estim Creat Clear Calc 49.69 Est GFR (MDRD) Af Amer 83 Est GFR (MDRD) Non-Af 69 BUN/Creatinine Ratio 14.7 Glucose 100 Calcium 8.8 Troponin I 1.510 H* Urine Color Urine Clarity Urine pH Ur Specific Bruno Urine Protein Urine Glucose (UA) Urine Ketones Urine Occult Blood Urine Nitrite Urine Bilirubin Urine Urobilinogen Ur Leukocyte Esterase Urine RBC Urine WBC Ur Squamous Epith Cells Urine Bacteria Urine Mucus 05/19/18 05/19/18 05/19/18 05:00 07:30 12:56 WBC RBC Hgb Hct MCV MCH MCHC RDW RDW Differential Plt Count MPV Immature Gran % (Auto) Neut % (Auto) Lymph % (Auto) Jenkins % (Auto) Eos % (Auto) Baso % (Auto) Absolute Neuts (auto) Absolute Lymphs (auto) Total Counted PT 14.4 INR 1.1 APTT 41.9 H Activated Clotting Time 290 H Sodium Potassium Chloride Carbon Dioxide Anion Gap BUN Creatinine Estim Creat Clear Calc Est GFR (MDRD) Af Amer Est GFR (MDRD) Non-Af BUN/Creatinine Ratio Glucose Calcium Troponin I Urine Color Straw Urine Clarity Clear Urine pH 8.0 Ur Specific Bruno 1.010 Urine Protein Negative Urine Glucose (UA) Normal Urine Ketones Negative Urine Occult Blood Negative Urine Nitrite Negative Urine Bilirubin Negative Urine Urobilinogen Normal Ur Leukocyte Esterase Negative Urine RBC 0 SEEN Urine WBC 0 SEEN Ur Squamous Epith Cells 0 SEEN Urine Bacteria 0 SEEN Urine Mucus 0 SEEN 05/19/18 05/19/18 15:03 16:05 WBC RBC Hgb Hct MCV MCH MCHC RDW RDW Differential Plt Count MPV Immature Gran % (Auto) Neut % (Auto) Lymph % (Auto) Jenkins % (Auto) Eos % (Auto) Baso % (Auto) Absolute Neuts (auto) Absolute Lymphs (auto) Total Counted PT INR APTT Activated Clotting Time 213 H 191 H Sodium Potassium Chloride Carbon Dioxide Anion Gap BUN Creatinine Estim Creat Clear Calc Est GFR (MDRD) Af Amer Est GFR (MDRD) Non-Af BUN/Creatinine Ratio Glucose Calcium Troponin I Urine Color Urine Clarity Urine pH Ur Specific Bruno Urine Protein Urine Glucose (UA) Urine Ketones Urine Occult Blood Urine Nitrite Urine Bilirubin Urine Urobilinogen Ur Leukocyte Esterase Urine RBC Urine WBC Ur Squamous Epith Cells Urine Bacteria Urine Mucus Assessment/Plan This patient was seen in conjunction with Amaya Phipps NP. I have independently interviewed and examined the patient and reviewed pertinent historical, laboratory, and other data. Please refer to her note for patient's presentation, findings, and recommendations. Patient was seen and examined. He was admitted yesterday after being asked to go to the emergency department when an EKG and troponin done in his primary care doctor's office, were abnormal. He was admitted to the telemetry floor and managed as NSTEMI. 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 Overnight patient had bleeding from his Lovenox injection site. Had to be reinforced. He was seen in the ICU post cardiac cath. He denied any chest pain or dizziness. He is undergoing post cardiac cath groin protocol. Vitals were reviewed -stable Physical Exam: Gen: Alert oriented x3, not pale, not jaundiced, appears comfortable CVS:HS I +II, regular, no murmurs RESP: Clinically clear to auscultation GI: Bowel sounds present, soft, nontender, no palpable organs EXT:No edema, dressing over the right distal leg ASSESSMENT: 1. 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 CAD status post CABG 3. Hypertension 4. Hyperlipidemia 5. History of PE 6. Bilateral lower extremity venous stasis dermatitis, chronic right leg ulcer 7. BPH 8. Bleeding from Lovenox injection site Meds reviewed Plan: Continue with post-cath protocol With aspirin, Plavix, statin, beta-maria e Pressure dressing to Lovenox injection site Code Visit Inpatient E&M: [id number] [facility] Hosp L3
[2018-05-19 13:22] LABS: ACT Activated Clotting Time 290 sec (74-137)
--- NOTE | 2018-05-19 13:27 | CL.I_ITS ---
Patient Name: LOVELY SINGH Study Date: 05/19/2018 Performing: Elais Montilla MD Ht: 67 inches 170 cm : 1935 Wt: 218.5 lbs 99 kg Age: 82 Gender: male BSA: 2.1 PROCEDURE(S) PERFORMED [id number], CORONARY OR GRAFT, INITIAL VESSEL [id number] W OR WO PTCA, SINGLE CORONARY ARTERY [id number] W OR WO PTCA, SINGLE CORONARY ARTERY CLINICAL PROFILE AND CO-MORBIDITIES Patient presents with NSTEMI for urgent cardiac cath Indications: ACS <= 24 hrs, New Onset Angina <= 2 months, Stable Known CAD, Other Heart Failure: None Stress/Imaging Stress/Image Study Performed: No Angina Classification Anginal Classification w/in 2 Weeks: CCS IV CAD Presentations: Unstable angina. Non-STEMI. Symptom onset Date/Time: 05/18/2018 Time Not Availa ble Comorbidities/Risk Factors: Hypertension Dyslipidemia Prior PCI CONCLUSIONS Successful PTCA/EASTON of distal RCA in stent plaque protrusion with possible non occlusive thrombus uti lizing multiple wires, ballloons, and finally a 3.5 x 32 Promus Synergy, post dilated with a 4.0 x 8 NC Ballloon; 85%-->0%, no dissection. Stent apposition confirmed with IVUS before and after stent de ployment. Successful PTCA/EASTON Anomalous LCX off of RCA with a 2.25 x 24 Promus Synergy, 90%-->0%, no dissection . RECOMMENDATIONS Highly recommend quitting all tobacco products Follow up with primary wood heel back liner Risk factor modification ASA Indefinitley Plavix for at least 12 months Routine post interventional care Refer for Outpatient Cardiac Rehab Manual sheath removal per protocol Follow up with Dr. Alcala NO COUMADIN FOR AT LEAST 3 MONTHS UNTIL ALL STENTS HAVE ENDOTHELIALIZED. Manual sheath removal given proximity to profunda and hip replacement. asa and either brilinta or plavix for life. DESCRIPTION OF PROCEDURE The patient arrived to the procedure lab. The risks and benefits of the procedure as well as a full d escription of our services here and current unavailability of surgical backup were fully explained to the patient and/or their significant other prior to the catheterization. The Timeout was completed, verifying the correct patient and procedure. The patient's procedural site was prepped and draped in the usual fashion. Local anesthetic was given subcutaneously to right groin region with Lidocaine 2%. Using a modified Seldinger technique, arterial access was obtained via the right femoral artery, a 4 Fr sheath was inserted. Right Coronary Artery selective angiography was then performed in multiple vi ews using a 4 Fr. 3DRC catheter Arterial sheath was exchanged for a 6 Fr 55cm Sheath. AL1 Guide catheter was inserted and engaged into the RCA. BMW Cambridge Guide wire was advanced to the RCA. NC Emerge 3.5 x 12 Balloon catheter was inserted. Balloon catheter was advanced across lesion in the right coronary, distal. Angiogram pe rformed pre balloon dilatation. PTCA balloon inflated at 14 atms for 10 secs. PTCA balloon inflated a t 10 atms for 10 secs. Angiogram performed post balloon dilatation. PTCA balloon inflated at 14 atms for 10 secs. PTCA balloon inflated at 16 atms for 8 secs. Angiogram performed post balloon dilatation . NC Euphora 4.0 x 12 Balloon catheter was inserted. Balloon catheter was advanced across lesion in t he right coronary, distal. Angiogram performed pre balloon dilatation. PTCA balloon inflated at 14 at ms for 14 secs. PTCA balloon inflated at 14 atms for 6 secs. PTCA balloon inflated at 14 atms for 6 s ecs. PTCA balloon inflated at 14 atms for 14 secs. PTCA balloon inflated at 12 atms for 5 secs. PTCA balloon inflated at 12 atms for 3 secs. PTCA balloon inflated at 14 atms for 6 secs. PTCA balloon inflated at 14 atms for 6 secs. PTCA balloon inflated at 14 atms for 6 secs. Angiogram perfor med post balloon dilatation. IVUS pullback recording was performed on the RCA for post PCI assessmen t. [place] AP inserted Pass # 1 [place] AP Removed Synergy 4.0 x 32 Drug Eluting stent was inserted. Dr ug Eluting stent was advanced across the lesion in the right coronary, distal. Angiogram performed pr e stent deployment. Drug Eluting stent was removed intact, failed to cross lesion Runthrough Guide wi re was inserted as a zoila wire NC Euphora 4.0 x 12 Balloon catheter was reinserted Balloon catheter was advanced across lesion in the right coronary, distal. PTCA balloon inflated at 12 atms for 10 sec s. PTCA balloon inflated at 12 atms for 4 secs. PTCA balloon inflated at 12 atms for 47 secs. PTCA ba lloon inflated at 14 atms for 6 secs. PTCA balloon inflated at 14 atms for 6 secs. Angiogram performed post balloon dilatation. PTCA balloon inflated at 14 atms for 5 secs. [place] AP i nserted Pass # 2 [place] AP Removed [place] AP inserted on Runthrough wire for pass #3 [place] AP Remove d Synergy 4.0 x 32 Drug Eluting stent was inserted on the Runthrough Wire. Drug Eluting stent was rem kirill intact, failed to cross lesion Synergy 4.0 x 32 Drug Eluting stent was reinserted on [employer] Wire. Drug Eluting stent was removed intact, failed to cross lesion Resolute 4.0 x 30 Drug Eluting stent was inserted. Drug Eluting stent was removed intact, failed to cross lesion Synergy 3.50 x 32 Drug Eluting stent was inserted om the Runthrough wire. Drug Eluting stent was removed intact, failed to cross lesion Synergy 3.5 x 32 Drug Eluting stent was reinserted Drug Eluting stent was advanced a cross the lesion in the right coronary, distal. Angiogram performed post stent deployment. NC Euphora 4.0 x 12 Balloon catheter was inserted. Balloon catheter was advanced across lesion in the right coronary, distal. NC Emerge 4.0 x 8 Balloon catheter was inserted. Angiogram performed post balloon dilatation. IVUS pullback recording was performed on the RCA for post PCI assessment. MP2 G uide catheter was inserted and engaged into the LCA. BMW Cambridge Guide wire was reinserted and adva nced to the Circumflex. Emerge 2.0 x 12 Balloon catheter was inserted. Angiogram performed pre balloo n dilatation. Balloon catheter was reinserted PTCA balloon inflated at 8 atms for 6 secs. PTCA balloo n inflated at 8 atms for 6 secs. Angiogram performed post balloon dilatation. PTCA balloon inflated a t 8 atms for 6 secs. PTCA balloon inflated at 10 atms for 4 secs. PTCA balloon inflated at 10 atms fo r 20 secs. Angiogram performed post balloon dilatation. synergy 2.25x24 Drug Eluting stent was insert ed. Arterial sheath was exchanged for a 6 Fr Sheath. Contrast was injected through the sheath and the Right Iliac and Femoral artery were assessed for possible closure device. The arterial sheath was sutured in place and capped INTERVENTION INFORMATION LESION SITE: RCA (Distal) Lesion Complexity: High/C, lesion at bifurcation: No, thrombus present: Yes, lesion length: 32 mm, cu lprit lesion: Yes Pre Stenosis: 85 % Pre intervention BRYNN flow: 3 PROCEDURE: Drug Eluting Stent with pre and post dilatation Post Stenosis: 0 % Post intervention BRYNN flow: 3 Lesion Devices: Cook 6F 55cm Sheath Medtronic 6 Fr AL1.0 100cm Guide Catheter Bernal .014 BMW Cambridge Straight 190cm Melecio Sci NC EMERGE MR 3.50x12 BALLOON Medtronic NC EUPHORA RX 4.0x12 BALLOON Medtronic 6 Fr. [place] AP Aspiration Catheter IGT Devices ( Formerly [employer]) Coronary IVUS Catheter Terumo .014 Runthrough Extra Floppy 180cm straight Melecio Sci Synergy MR EASTON 3.50x32 Melecio Sci NC EMERGE MR 4.00x08 BALLOON LESION SITE: Circumflex (Proximal) Lesion Complexity: High/C, lesion at bifurcation: No, thrombus present: No, lesion length: 24 mm, cul prit lesion: No Pre Stenosis: 90 % Pre intervention BRYNN flow: 2 PROCEDURE: Drug Eluting Stent with pre dilatation. Post Stenosis: 0 % Post intervention BRYNN flow: 3 Lesion Devices: Terumo .014 Runthrough Extra Floppy 180cm straight Medtronic 6 Fr MP2 100cm Guide Catheter Melecio Sci EMERGE MR 2.00x12 BALLOON Melecio Sci Synergy MR EASTON 2.25x24 COMPLICATIONS No Complications PROCEDURE MEDICATIONS Fentanyl 25 mcg IV Versed 1 mg IV Fentanyl 25 mcg IV Versed 1 mg IV Fentanyl 25 mcg IV Fentanyl 25 mcg IV Versed 1 mg IV Oxygen: 2 L/min via nasal cannula Heparin 6000 unit(s) IV 05/19/2018 11:17:27 Heparin 4000 unit(s) IV 05/19/2018 11:47:16 Heparin 4000 unit(s) IV 05/19/2018 12:29:04 Nitro 200 mcg IC 05/19/2018 12:11:46 Nitro 200 mcg IC 05/19/2018 12:11:46 IV Bolus: .9 NaCl 1500ml total 05/19/2018 11:12:54 IV Fluids: .9 NaCl decreased to 150 ml/hr 05/19/2018 12:37:03 SUMMARY OF HEMODYNAMIC DATA Time AIR REST ECG 10:58:32 AO 101/57 (76) SA 11:12:31 AO 108/62 (78) 12:55:23 Signed By Elias Montilla MD On 05/19/2018 13:25:40 Elias Montilla MD
--- NOTE | 2018-05-19 13:42 | EKG12_ITS ---
Test Reason : CP ADMIT Blood Pressure : / mmHG Vent. Rate : 059 BPM Atrial Rate : 059 BPM P-R Int : 210 ms QRS Dur : 100 ms QT Int : 428 ms P-R-T Axes : 013 -47 -37 degrees QTc Int : 423 ms Sinus bradycardia with 1st degree A-V block Incomplete right bundle branch block Left anterior fascicular block Minimal voltage criteria for LVH, may be normal variant T wave abnormality, consider inferior ischemia T wave abnormality, consider anterolateral ischemia Abnormal ECG Confirmed by HELADIO GARZON, LIBIA ([id number]), editor in chief ISABELLE WYMAN ([id number]) on 05/20/2018 10:10:56 AM Referred By: DR KRAMER Confirmed By:LIBIA LEIJA MD
[2018-05-19] MEDS: fentaNYL 100 MCG/2 ML Ampul 25 MCG IV ×2 (14:06→17:11)
[2018-05-19] MEDS: Acetaminophen 325 MG Tablet 650 MG PO (14:06)
[2018-05-19] MEDS: Furosemide 40 MG Tablet PO (14:07)
[2018-05-19] MEDS: Loratadine 10 MG Tablet PO (14:07)
[2018-05-19] MEDS: Tamsulosin HCl 0.4 MG Capsule PO (14:07)
[2018-05-19] MEDS: Finasteride 5 MG Tablet PO (14:08)
[2018-05-19] MEDS: Folic Acid 1 MG Tablet 0.5 MG PO (14:08)
[2018-05-19 15:16] LABS: ACT Activated Clotting Time 213 sec (74-137)
[2018-05-19] MEDS: 0.9% Normal Saline 1,000 ML 150 ML IV (15:54)
[2018-05-19 16:16] LABS: ACT Activated Clotting Time 191 sec (74-137)
[2018-05-19 17:26] LABS: ACT Activated Clotting Time 175 sec (74-137)
[2018-05-19 18:26] LABS: ACT Activated Clotting Time 158 sec (74-137)
[2018-05-19] MEDS: Atorvastatin Calcium 40 MG Tablet PO (21:36)
[2018-05-19] MEDS: Latanoprost 0.005% 1 Bottle 1 DRP EACH EYE (21:37)
[2018-05-20] VITALS (13 sets, daily range): BP systolic 96–155; BP diastolic 53–78; PULSE 65–88; RESP 15–24; TEMP 36.7–36.8; O2SAT 97–99
[2018-05-20 04:31] LABS: Hematocrit 30.7 % (40-54); Hemoglobin 9.8 g/dl (13.0-16.5); Mean Corp Hgb Conc 31.9 g/gl (32-36); Mean Corpuscular Hgb 28.8 pg (27.0-32.0); Mean Corpuscular Volume 90.3 fL (80-94); Mean Platelet Vol. 10.4 fl (6.2-12.0); Platelet Count 215 K/mm3 (150-450); RBC Distribution Width CV 16.5 % (11.6-14.6); White Blood Count 7.4 K/mm3 (4.4-11.0)
[2018-05-20 04:41] LABS: Anion Gap 10 (5-15); BUN 17 mg/dL (7-18); BUN/Creat Ratio 14.3 RATIO (10-20); Calcium,Total 8.2 mg/dL (8.5-10.1); Chloride 107 mmol/L (98-107); Creatinine, Serum 1.19 mg/dL (0.70-1.30); EST Glomerular Filtration Rate 62 mL/min (>60); Est Glom Filt Rate - Afr Amer 75 mL/min (>60); Estimated Creatinine Clearance 45.52 ml/min; Glucose 100 mg/dL (74-106); Potassium 4.5 mmol/L (3.5-5.1); Scan Indicated on CBC? Y/N NO; Sodium Level 140 mmol/L (136-145)
--- NOTE | 2018-05-20 07:58 | CRPHASE1 ---
Patient Data/Charges Reason Not Completed:: Patient was just recently catherd on 05/14/2018 and seen following that intervention. Risk Factors/Lifestyle Family History: Family History (Last Reviewed 05/18/18 @ 18:06 by LUCIA Prieto) Father No problems noted. Mother Cancer Brother Throat cancer Brother COPD (chronic obstructive pulmonary disease) Brother No problems noted. Sister COPD (chronic obstructive pulmonary disease) Heart disease Sister COPD (chronic obstructive pulmonary disease)
--- NOTE | 2018-05-20 08:00 | CRPH1.INSTRU ---
General Education CAD and cardiac anatomy and function:: Not instructed - Patient was just recently cathed on 05/14/2018 and seen by [facility] staff following his previous intervention.
--- NOTE | 2018-05-20 08:05 | PN.CARD_ITS ---
Subjectve: Patient seen and evaluated. Appears to be doing much better. Objective: Vital Signs Temp Pulse Resp BP Pulse Ox 98.2 F 72 15 138/73 H 99 05/20/18 05:00 05/20/18 06:00 05/20/18 06:00 05/20/18 06:00 05/20/18 06:00 Oxygen Flow Rate (L/min) 2 Oxygen Delivery Method Room Air Weight: 218 lb 11.177 oz Body Mass Index (BMI) 34.2 Intake and Output for Last 24 Hours 05/18/18 05/19/18 05/20/18 23:59 23:59 23:59 Intake Total 1561 / 1561 120 / 120 Output Total 2024 / 2024 200 / 200 Balance -464 / -464 -80 / -80 General: Awake, Alert, Oriented x 3 HEENT: PERRL, EOMI, Sclera Non Icteric Neck: Supple, Good ROM, No Lymph Node Enlargement Lungs: Clear to auscultation Cardiovascular: Regular Rhythm, Normal S1, Normal S2, No Murmurs, No Rubs, No Gallops Vascular: No Carotid Bruits, Normal Femoral Pulses, Normal Radial Pulses, Normal Dorsalis Pedal Pulse, Normal Posterior Tibial Pulses Abdomen: Bowel Sounds Present, Soft, Non Tender, No HSM, No Organomegaly Extremities: No Cyanosis, No Clubbing, No edema Lymphatic: No Lymph Node Enlargement Neurological: No Focal Motor or Sensory Deficit Psych/Mental Status: Appropriate 05/19/18 07:30: Urine Color Straw, Urine Clarity Clear, Urine pH 8.0, Ur Specific [place] 1.010, Urine Protein Negative, Urine Glucose (UA) Normal, Urine Ketones Negative, Urine Occult Blood Negative, Urine Nitrite Negative, Urine Bilirubin Negative, Urine Urobilinogen Normal, Ur Leukocyte Esterase Negative, Urine RBC 0 SEEN, Urine WBC 0 SEEN 05/20/18 04:15: WBC 7.4, RBC 3.40 L, Hgb 9.8 L, Hct 30.7 L, MCV 90.3, MCH 28.8, MCHC 31.9 L, RDW 16.5 H, RDW Differential 53.0 H, Plt Count 215, MPV 10.4 05/20/18 04:15: Sodium 140, Potassium 4.5, Chloride 107, Carbon Dioxide 23.0, Anion Gap 10, BUN 17, Creatinine 1.19, Est GFR (MDRD) Af Amer 75, Est GFR (MDRD) Non-Af 62, BUN/Creatinine Ratio 14.3, Glucose 100, Calcium 8.2 L Rhythm: EKG: ECHO: Stress Test: Cardiac Cath: PCI: CT Surgery: Holter monitor: EPS: PPM: CXR: Chest CT Scan: Medical Necessity - Tobacco Use Smoking Status: Former smoker Assessment/Plan 1. Non-ST elevation myocardial infarction * He presents approximately a week after his previous non-ST elevation myocardial infarction for which she underwent angioplasty and stenting and now has recurrent chest discomfort with enzyme elevation. * She underwent cardiac catheterization yesterday which demonstrated restenosis of her recently placed stent for which he had angioplasty and stent placement in the right coronary artery. 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 He appears to have done well his groin is intact his EKG is unchanged and his creatinine is better with his hemoglobin is stable. * 2. Coronary artery bypass surgery * Patient is status post coronary artery bypass surgery with his anatomy as described above. * 3. Hypertension * Blood pressure appears to be under good control will continue current medical therapy. * 4. Hyperlipidemia * Continue with aggressive risk factor modification. * * Will hold off on anticoagulation for now. Will not resume Coumadin. * Discharge home for outpatient follow-up * Thank you for allowing me to participate in the care of your patient. Please don't hesitate to call if any issues arise
--- NOTE | 2018-05-20 08:06 | DS.PCM_ITS ---
Discharge Date and Diagnosis Date of Admission: 05/18/18 Date of Discharge: 05/20/18 - Primary Discharge Diagnosis 1. 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 09/12/2000 History of coronary artery stent placement (Chronic 05/13/18) PTCA/EASTON Anomalous LCX off of RCA with a 2.25 x 24 Promus Synergy and PTCA/EASTON of distal RCA in stent plaque protrusion with possible non occlusive thrombus w/ 3.5 x 32 Promus Synergy05/19/18 PTCA/EASTON distal RCA with a 3.5 x 38 Promus Syergy and EASTON mid RCA with a 4.0 x 32 Promus Synergy Stent 05/13/18 EASTON-Prox LAD w/ 3.5 mm x 20 mm Promus Stent 08/27/12 [id number] & proximal RCA 06/21/2002 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 pectoris (Chronic) PTCA/EASTON Anomalous LCX off of RCA with a 2.25 x 24 Promus Synergy and PTCA/EASTON of distal RCA in stent plaque protrusion with possible non occlusive thrombus w/ 3.5 x 32 Promus Synergy05/19/18 PTCA/EASTON distal RCA with a 3.5 x 38 Promus Syergy and EASTON mid RCA with a 4.0 x 32 Promus Synergy Stent 05/13/18 EASTON-Prox LAD w/ 3.5 mm x 20 mm Promus Stent 08/27/12 [id number] & proximal RCA 06/21/2002 Stroke (Chronic) Hyperlipidemia (Chronic) Hospital Course and Treatment Imaging Results: Clinical Impression(s) from Imaging Studies Chest X-Ray 05/18/18 16:25 IMPRESSION: Borderline cardiomegaly without acute pulmonary disease or interval change. Electronically Signed: Taurus York DO at 16:37 EST Tel [phone], Service support , Cardiology Operations: None Procedures: Cardiac catheterization Summary of Care Provided: The patient is a 82 year old M with medical history of CAD status post CABG, recently had cardiac catheterization in 2018 with a drug eluting stent was placed in his RCA. Patient has started having some chest discomfort, followed up with his primary care doctor, an EKG and troponin done were abnormal, he was asked to go to the emergency department. His troponins were elevated, INR was normal. Patient was seen by the wicker molded candles in the emergency department, and he underwent left heart cath on 05/19/18 and 2 stents placed in his right coronary artery. He was continued on his aspirin, statin, Brilinta, beta-luis felipe and isosorbide. During his admission, patient had bleeding from his anterior abdominal wall Lovenox patient site for which packing and reinforcement had to be done. There was no more bleeding at the time of discharge. Patient was discontinued on his Coumadin. Subjective: On the day of discharge, patient was seen and examined. No more bleeding from his anterior abdominal wall. Denies any chest pain or dizziness or palpitation s. No acute events overnight. Objective: Physical Exam General: Alert, Oriented x3, Cooperative, obese HEENT: Atraumatic, PERRLA, EOMI, Normocephalic Neck: Supple, No JVD, Negative Carotid Bruits Lungs: Clear to auscultation, Normal air movement Cardiovascular: Regular rate, Regular Rhythm, Normal S1, Normal S2, No murmurs Abdomen: Bowel Sounds Present, Soft, Non Tender, Non-Distended Extremities: No clubbing, No cyanosis, No edema, Capillary Refill Less than 3 Seconds Skin: No rashes, No breakdown, - - Chronic venous stasis skin changes bilateral lower extremities with superficial ulcerations, no bleeding from the anterior abdominal wall injection site Musculoskeletal: No Tenderness to Palpation of Joints or Extremities Neurological: Cranial nerves II-XII grossly intact, Neuro grossly intact Psych/Mental Status: Normal Affect, Appropriate - Physical Exam Vital Signs Temp Pulse Resp BP Pulse Ox 98.2 F 72 15 138/73 H 99 05/20/18 05:00 05/20/18 06:00 05/20/18 06:00 05/20/18 06:00 05/20/18 06:00 Oxygen Flow Rate (L/min) 2 Oxygen Delivery Method Room Air Weight: 99.2 kg Body Mass Index (BMI) 34.2 Intake and Output for Last 24 Hours 05/18/18 05/19/18 05/20/18 23:59 23:59 23:59 Intake Total 1561 / 1561 120 / 120 Output Total 2024 / 2024 200 / 200 Balance -464 / -464 -80 / -80 Laboratory Tests Past 24 Hrs 05/19/18 05/19/18 05/19/18 07:30 12:56 15:03 WBC RBC Hgb Hct MCV MCH MCHC RDW RDW Differential Plt Count MPV Activated Clotting Time 290 H 213 H Sodium Potassium Chloride Carbon Dioxide Anion Gap BUN Creatinine Estim Creat Clear Calc Est GFR (MDRD) Af Amer Est GFR (MDRD) Non-Af BUN/Creatinine Ratio Glucose Calcium Urine Color Straw Urine Clarity Clear Urine pH 8.0 Ur Specific [place] 1.010 Urine Protein Negative Urine Glucose (UA) Normal Urine Ketones Negative Urine Occult Blood Negative Urine Nitrite Negative Urine Bilirubin Negative Urine Urobilinogen Normal Ur Leukocyte Esterase Negative Urine RBC 0 SEEN Urine WBC 0 SEEN Ur Squamous Epith Cells 0 SEEN Urine Bacteria 0 SEEN Urine Mucus 0 SEEN 05/19/18 05/19/18 05/19/18 16:05 17:11 18:15 WBC RBC Hgb Hct MCV MCH MCHC RDW RDW Differential Plt Count MPV Activated Clotting Time 191 H 175 H 158 H Sodium Potassium Chloride Carbon Dioxide Anion Gap BUN Creatinine Estim Creat Clear Calc Est GFR (MDRD) Af Amer Est GFR (MDRD) Non-Af BUN/Creatinine Ratio Glucose Calcium Urine Color Urine Clarity Urine pH Ur Specific [place] Urine Protein Urine Glucose (UA) Urine Ketones Urine Occult Blood Urine Nitrite Urine Bilirubin Urine Urobilinogen Ur Leukocyte Esterase Urine RBC Urine WBC Ur Squamous Epith Cells Urine Bacteria Urine Mucus 05/20/18 05/20/18 04:15 04:15 WBC 7.4 RBC 3.40 L Hgb 9.8 L Hct 30.7 L MCV 90.3 MCH 28.8 MCHC 31.9 L RDW 16.5 H RDW Differential 53.0 H Plt Count 215 MPV 10.4 Activated Clotting Time Sodium 140 Potassium 4.5 Chloride 107 Carbon Dioxide 23.0 Anion Gap 10 BUN 17 Creatinine 1.19 Estim Creat Clear Calc 45.52 Est GFR (MDRD) Af Amer 75 Est GFR (MDRD) Non-Af 62 BUN/Creatinine Ratio 14.3 Glucose 100 Calcium 8.2 L Urine Color Urine Clarity Urine pH Ur Specific [place] Urine Protein Urine Glucose (UA) Urine Ketones Urine Occult Blood Urine Nitrite Urine Bilirubin Urine Urobilinogen Ur Leukocyte Esterase Urine RBC Urine WBC Ur Squamous Epith Cells Urine Bacteria Urine Mucus Discharge Diet: Low fat/ Low Cholesterol, 2000 mg Sodium Diet Discharge Activity: Return to Normal Activity Home Medications: Medications to take at Discharge Aspirin [Aspirin, Baby] 81 mg PO DAILY@0800 06/23/13 Metoprolol(XL)Succ [Toprol Xl (Beta Luis Felipe)] 50 mg PO DAILY 06/23/13 Cetirizine HCl [Zyrtec] 10 mg PO DAILY 03/25/15 Finasteride [Proscar] 5 mg PO DAILY 03/25/15 Isosorbide Mononitrate [Isosorbide Mononitrate ER] 60 mg PO DAILY 03/25/15 Multivit-Min/FA/Lycopen/Lutein [Centrum Silver Tablet] 1 ea PO DAILY 03/25/15 atorvastatin 40 mg tablet 40 mg PO QHS tab 05/08/17 lubiprostone 24 mcg capsule 24 mcg PO BID cap 05/08/17 magnesium oxide 400 mg (241.3 mg magnesium) tablet 400 mg PO QDAY tab 05/08/17 pantoprazole 20 mg tablet,delayed release 40 mg PO DAILY 05/08/17 furosemide 40 mg tablet 40 mg PO DAILY tab 12/05/17 tamsulosin 0.4 mg capsule 0.4 mg PO DAILY 30 Days #30 12/05/17 Albuterol IH (ProAir) [Proair Hfa] 2 puff INHALATION Q4H PRN PRN 05/10/18 Folic Acid 0.4 mg PO DAILY@0800 05/10/18 Travoprost 0.004% [Travatan-Z 0.004% Eye Drop] 1 drop EACH EYE QHS 05/10/18 Varicella-Zoster Ge/As01b/Pf [Shingrix Vial Kit] 50 mcg IM . DIRECTED 05/10/18 Ticagrelor [Brilinta] 90 mg PO BID #180 tablet 05/14/18 Acetaminophen [Tylenol Tablet] 650 mg PO Q6H PRN PRN tablet 05/20/18 Primary Care Physician: Ashvin Tello Chi, MD [Primary Care Provider] - Disposition: Home Minutes spent on discharge:: 40 Patient Condition:: Stable Medical Necessity - Tobacco Use Smoking Status: Former smoker Tobacco Use: Non-smoker Meaningful Use Info Meaningful Use Diagnoses (Choose all that apply): None applicable Code Visit Inpatient E&M: 23210 Disch Hosp
--- NOTE | 2018-05-20 08:18 | DCINST_ITS ---
- Discharge Diagnoses Reason(s) for Visit for Discharge Instructions: Chest pain You will use the following diet at home:: Cardiac Your food should be the consistency of: Regular Your liquids should be the consistency of: Regular/Thin Discharge Activity: Return to Normal Activity Additional Instructions: Continue to take all your medications as prescribed. Your coumadin has been stopped. Follow-up with Dr. Alcala as scheduled. Allergies/Adverse Reactions: Allergies diazepam [From Valium] Allergy (Intermediate, Verified 05/18/18 16:06) Other HALLUCINATIONS morphine Allergy (Intermediate, Verified 05/18/18 16:06) Other TWITCHES Medications to take at Discharge Aspirin [Aspirin, Baby] 81 mg PO DAILY@0800 06/23/13 Metoprolol(XL)Succ [Toprol Xl (Beta Luis Felipe)] 50 mg PO DAILY 06/23/13 Cetirizine HCl [Zyrtec] 10 mg PO DAILY 03/25/15 Finasteride [Proscar] 5 mg PO DAILY 03/25/15 Isosorbide Mononitrate [Isosorbide Mononitrate ER] 60 mg PO DAILY 03/25/15 Multivit-Min/FA/Lycopen/Lutein [Centrum Silver Tablet] 1 ea PO DAILY 03/25/15 atorvastatin 40 mg tablet 40 mg PO QHS tab 05/08/17 lubiprostone 24 mcg capsule 24 mcg PO BID cap 05/08/17 magnesium oxide 400 mg (241.3 mg magnesium) tablet 400 mg PO QDAY tab 05/08/17 pantoprazole 20 mg tablet,delayed release 40 mg PO DAILY 05/08/17 furosemide 40 mg tablet 40 mg PO DAILY tab 12/05/17 tamsulosin 0.4 mg capsule 0.4 mg PO DAILY 30 Days #30 12/05/17 Albuterol IH (ProAir) [Proair Hfa] 2 puff INHALATION Q4H PRN PRN 05/10/18 Folic Acid 0.4 mg PO DAILY@0800 05/10/18 Travoprost 0.004% [Travatan-Z 0.004% Eye Drop] 1 drop EACH EYE QHS 05/10/18 Varicella-Zoster Ge/As01b/Pf [Shingrix Vial Kit] 50 mcg IM . DIRECTED 05/10/18 Ticagrelor [Brilinta] 90 mg PO BID #180 tablet 05/14/18 Acetaminophen [Tylenol Tablet] 650 mg PO Q6H PRN PRN tablet 05/20/18 Primary Care Physician: Ashvin Tello Chi, MD [Primary Care Provider] - Please follow up with your Primary Care Physician in: within 1-2 weeks Test Results: Test results from this visit will be discussed in further detail at your follow- up appointment, if applicable. Please Follow Up With: Fito Alcala MD When: within 1-2 weeks Proposed Discharge Date: 05/20/18
[2018-05-20] MEDS: Tamsulosin HCl 0.4 MG Capsule PO (08:32)
[2018-05-20] MEDS: Aspirin 81 MG TAB.CHEW PO (08:32)
[2018-05-20] MEDS: Isosorbide Mononitrate 60 MG Tablet PO (08:32)
[2018-05-20] MEDS: TICAGRELOR 90 MG TABLET PO (08:32)
[2018-05-20] MEDS: Metoprolol(XL)Succ 50 MG Tablet PO (08:32)
[2018-05-20] MEDS: Furosemide 40 MG Tablet PO (08:32)
[2018-05-20] MEDS: Loratadine 10 MG Tablet PO (08:33)
[2018-05-20] MEDS: Folic Acid 1 MG Tablet 0.5 MG PO (08:33)
[2018-05-20] MEDS: Finasteride 5 MG Tablet PO (08:34)
[2018-05-20] MEDS: Pantoprazole Sodium 20 MG Tablet 40 MG PO (08:39)
--- NOTE | 2018-05-20 10:00 | EKG12_ITS ---
Test Reason : AM EKG Blood Pressure : / mmHG Vent. Rate : 071 BPM Atrial Rate : 071 BPM P-R Int : 186 ms QRS Dur : 106 ms QT Int : 406 ms P-R-T Axes : 015 -47 -28 degrees QTc Int : 441 ms Sinus rhythm with Premature atrial complexes Left anterior fascicular block Anterior infarct , age undetermined T wave abnormality, consider lateral ischemia Abnormal ECG When compared with ECG of 19-MAY-2018 13:28, MANUAL COMPARISON REQUIRED, DATA IS UNCONFIRMED Confirmed by ALEXANDER GARZON, KWESI ([id number]), editor school photograph TAWNYA CASTILLO ([id number]) on 05/25/2018 5:30:51 PM Referred By: NIA Confirmed By:KWESI MUNOZ MD
--- NOTE | 2018-05-20 14:36 | CASEMGMT ---
HOOD CM Readmission Note. Pt readmitted for cardiac intervention. Intro role of CM to patient and his in room. Pt states he has his Brillinta 30 day free prescription filled at home from previous admission. Pt states his mnthly cost will be high. 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 Pt states he is doing well @ home and no assist needed. is able to assist. Valdemar LI RN ACM
--- NOTE | 2018-05-20 14:39 | CASEMGMT ---
RN CM Note: [facility] Tier reduction form not completed by physician yet. Sent through interoffice mail along with copy of pt's prescription card to Dr. Alcala's office for completion.Valdemar LI RN ACM
== END 2018-05-20 10:30 | disposition home or self-care (01) | DRG 247 ==
LOC: ED 16:45 → PCU 17:46 → ICU 05-19 11:42
PROVIDERS: Internal Medicine Cardiovascular Disease; Admitting Provider Family Medicine; Emergency Provider Emergency Medicine; Family Provider Family Medicine Geriatric Medicine; PCP Family Medicine Geriatric Medicine; Visit Provider Internal Medicine
DX: I22.2 Subsequent non-ST elevation (NSTEMI) myocardial infarction (principal); T82.855A Stenosis of coronary artery stent, initial encounter; Q24.5 Malformation of coronary vessels; I21.4 Non-ST elevation (NSTEMI) myocardial infarction; N40.0 Benign prostatic hyperplasia without lower urinary tract symptoms; E78.5 Hyperlipidemia, unspecified; I87.2 Venous insufficiency (chronic) (peripheral); Z87.891 Personal history of nicotine dependence; I25.10 Atherosclerotic heart disease of native coronary artery without angina pectoris; I10 Essential (primary) hypertension; Z95.5 Presence of coronary angioplasty implant and graft; Z79.899 Other long term (current) drug therapy; Z86.711 Personal history of pulmonary embolism; Z95.1 Presence of aortocoronary bypass graft; I27.21 Secondary pulmonary arterial hypertension; R58 Hemorrhage, not elsewhere classified; T80.89XA Other complications following infusion, transfusion and therapeutic injection, initial encounter; Y84.8 Other medical procedures as the cause of abnormal reaction of the patient, or of later complication, without mention of misadventure at the time of the procedure; Z79.82 Long term (current) use of aspirin
CPT/HCPCS: 36415; 71045; 80048; 81001; 82550; 83874; 84484; 85025; 85027; 85347; 85610; 85730; 87633; 92928; 92978; 93005; 99152; 99153; 99285; J7030; J7040; A4216; C1725; C1753; C1757; C1769; C1874; C1887; C1894; C9600; Q9967

== ENCOUNTER → 2018-05-25 08:50 | Outpatient (CLI) | payer MEDICARE, OTHER, SELFPAY ==
[2018-05-18 18:53] VITALS: BMI 34.2
== END ==
PROVIDERS: Family Provider Family Medicine Geriatric Medicine; PCP Family Medicine Geriatric Medicine; Visit Provider Family Medicine Geriatric Medicine
DX: I48.0 Paroxysmal atrial fibrillation (principal)

== ENCOUNTER → 2018-05-28 12:03 | Outpatient (CLI) | payer MEDICARE, OTHER, SELFPAY ==
[2018-05-18 18:53] VITALS: BMI 34.2
--- NOTE | 2018-05-28 12:34 | PCM.CR.HP2 ---
CR - History & Physical - General Arrival date:: 05/28/18 Arrival time:: 12:00 Date of Referral:: 05/18/18 Date of CR Evaluation:: 05/28/18 Referring Physician: Primary Diagnosis: PCI WITH STENT - History of Present Cardiac Event Onset Date: Enter Onset Date of cardiac illnesses in Comment field below PTCA or coronary stenting:: Yes - 05/13/18 - Medications Home Medications: Ambulatory Orders Medication Instructions Recorded Aspirin [Aspirin, Baby] 81 mg PO DAILY@0800 06/23/13 Metoprolol(XL)Succ [Toprol Xl 50 mg PO DAILY 06/23/13 (Beta Luis Felipe)] Cetirizine HCl [Zyrtec] 10 mg PO DAILY 03/25/15 Finasteride [Proscar] 5 mg PO DAILY 03/25/15 Isosorbide Mononitrate [Isosorbide 60 mg PO DAILY 03/25/15 Mononitrate ER] Multivit-Min/FA/Lycopen/Lutein 1 ea PO DAILY 03/25/15 [Centrum Silver Tablet] atorvastatin 40 mg tablet 40 mg PO QHS tab 05/08/17 lubiprostone 24 mcg capsule 24 mcg PO BID cap 05/08/17 magnesium oxide 400 mg (241.3 mg 400 mg PO QDAY tab 05/08/17 magnesium) tablet pantoprazole 20 mg tablet,delayed 40 mg PO DAILY 05/08/17 release furosemide 40 mg tablet 40 mg PO DAILY tab 12/05/17 tamsulosin 0.4 mg capsule 0.4 mg PO DAILY 30 Days #30 12/05/17 Albuterol IH (ProAir) [Proair Hfa] 2 puff INHALATION Q4H PRN PRN 05/10/18 Folic Acid 0.4 mg PO DAILY@0800 05/10/18 Travoprost 0.004% [Travatan-Z 1 drop EACH EYE QHS 05/10/18 0.004% Eye Drop] Varicella-Zoster Ge/As01b/Pf 50 mcg IM . DIRECTED 05/10/18 [Shingrix Vial Kit] Ticagrelor [Brilinta] 90 mg PO BID #180 tablet 05/14/18 Acetaminophen [Tylenol Tablet] 650 mg PO Q6H PRN PRN tablet 05/20/18 - Allergies Allergies/Adverse Reactions: Allergies diazepam [From Valium] Allergy (Intermediate, Verified 05/18/18 16:06) Other HALLUCINATIONS morphine Allergy (Intermediate, Verified 05/18/18 16:06) Other TWITCHES - Sleep Disorder Evaluation Hx of Sleep Apnea: Yes Do you snore loudly (louder than talking or can be heard through closed doors)?: Yes - SLEEP LAB TO CONTACT PATIENT OR REFIT Do you often feel tired/ fatigued/ sleepy during daytime?: Yes Has anyone observed you stop breathing during sleep?: No History of Hypertension (for STOP score): Yes - HE HAS A CPAP AT HOME BUT DOESN'T USE STOP Results: Positive Advanced Directives - Advanced Directives Power of Reading Professor: No Living Will: No Advance Directives Information Provided: No Advance Directives on File: No DNR Order?:: No - MOLST See MOLST form: No Past Medical History - Past Medical Illness Medical History: Past Medical History (Last Updated 05/19/18 @ 16:49 by Lena Holder) Essential (primary) hypertension (Chronic) I10 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 of RCA with a 2.25 x 24 Promus Synergy and PTCA/EASTON of distal RCA in stent plaque protrusion with possible non occlusive thrombus w/ 3.5 x 32 Promus Synergy05/19/18 PTCA/EASTON distal RCA with a 3.5 x 38 Promus Syergy and EASTON mid RCA with a 4.0 x 32 Promus Synergy Stent 05/13/18 EASTON-Prox LAD w/ 3.5 mm x 20 mm Promus Stent 08/27/12 [id number]-hlbtaa & proximal RCA 06/21/2002 Stroke (Chronic) I63.9 Hyperlipidemia (Chronic) E78.5 Right pulmonary embolus (Resolved) I26.99 Congestive heart failure (Inactive) I50.9 Systolic dysfunction Family history of hypertension (Inactive) Z82.49 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) Z79.899 Precordial chest pain (Inactive) R07.2 Pulmonary hypertension (Inactive) 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 - Past Surgical History Surgical History: Past Surgical History (Last Updated 05/19/18 @ 16:49 by Lena Holder) H/O coronary artery bypass surgery (Chronic) Onset Date: 09/12/00 Z95.1 CABG X 5 vessels: CASTILLO to LAD,left radial artery to RCA, SVG to first snd second DX branches of the LAD and SVG to the lateral CX which had aberrant origin from the RCA 09/12/2000 History of coronary artery stent placement (Chronic) Onset Date: 05/13/18 Z95.5 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 - Family History Summary Family History: Family History (Last Reviewed 05/18/18 @ 18:06 by LUCIA Prieto) Father , Unknown cause No problems noted. Mother Cancer Brother Throat cancer Brother COPD (chronic obstructive pulmonary disease) Brother , unknown cause No problems noted. Sister COPD (chronic obstructive pulmonary disease) Heart disease Sister COPD (chronic obstructive pulmonary disease) Social History - Smoking History Smoking Status: Former smoker Hx Smoking Cessation Date: QUIT AT AGE 17 - Alcohol Use Alcohol Usage: No - Substance Abuse Hx Substance Use: No - Occupation Occupation (List type of work in comments):: Retired - Hobbies, Recreation, Social Activities Hobbies: Other - SINGING [employer] FAMILY AT [employer] Recreational Activities: I am able to engage in a few activities Social Environment - Status Marital Status: - Current Living Arrangements Living Environment:: Spouse - Children How many children do you have?: 8 Do any of your children live nearby?: Yes - ONE SON AT HOME - Safety Do you feel safe in your surroundings?: Yes - Assistance Do you need any assistance at home?: NO Review of Systems - Review of Systems Hints: Right click = Denies (Slash). Left click = Reports ([place]) Review of Present Symptoms: Reports: Shortness of Breath at Rest, Shortness of Breath with Exertion, Angina, Dizziness/Lightheadedness - MIGRAINE HEADACHES 3-4/WK TAKES EXCEDERINE HEADACHE PILLS., Fatigue - Pain Is Patient Pain Free?: No Pain Location: back - RUPTURED DISC CAUSING AI IN THE BACK DOWN THE HIP HE STATES HE HAS LIGHT PAIN EVERY DAY IN HIS CHEST1-05/10 Risk Factor Assessment - Vital Signs Pulse Ox: 98 Blood Pressure: 134/78 - Pulse Pulse Rate: 78 Pulse Rhythm: Regular - Hypertension On medication(s)?: YES Blood Pressure Sitting - Right Arm: 134/78 - Diabetes Nutrition Referral for Diabetes: No - Obesity Height: 1.7 m Weight:: 100.244 kg Weight in Pounds: 221.0 lbs Weight Source: Stated by Patient Body Mass Index (BMI): 34.6 - Risk Stratification Risk Guidelines: Lowest Risk: Risk Factor for Dyslipidemia, Risk Factor for Diabetes, Risk Factor for Depression, Moderate Risk: Risk Factor for Obesity, Risk Factor for Hypertension, Highest Risk: Risk Factor for Sedentary Lifestyle - For Smoking Smoking Risk Guidelines: Smoking Low Risk: None or quit greater than 6 months ago. Smoking Moderate Risk: Smoker or quit 6 months or less ago. Smoking High Risk: Smoker - For Dyslipidemia Dyslipidemia Risk Guidelines: Low Risk: Moderate Risk: High Risk: 15-25% fat 25.1-29% fat >/= 30% fat. <7% sat fat 7-9% sat fat >9% sat fat. <150 mg chol 150-299 mg chol >/= 300 mg chol. LDL <100 LDL 100-129 LDL >/= 130. Chol/HDL ratio <5.0 Chol/HDL ratio 5.0-6.0 Chol/HDL ratio >6.0. Triglycerides <100 Triglycerides 100-149 Triglycerides >/= 150 - For Diabetes Mellitus Diabetes Risk Guidelines: Diabetes Low Risk: HgA1c <6.5% and/or FBG <120. Diabetes Moderate Risk: HgA1c 6.6-7.9% and/or FBG 120-180. Diabetes High Risk: HgA1c >/= 8% and/or FBG >180 - For Obesity/Overweight Obesity/Overweight Risk Guidelines: Obesity Low Risk: BMI <25.0. Obesity Moderate Risk: BMI 25-29.9. Obesity High Risk: BMI >/= 30.0 - For Hypertension Hypertension Risk Guidelines: Hypertension Low Risk: Systolic <120 and Diastolic <80. Hypertension Moderate Risk: Systolic 120-139 and Diastolic 80-89. Hypertension High Risk: Systolic >/= 140 and Diastolic >/= 90 - For Sedentary Lifestyle Sedentary Lifestyle Risk Guidelines: Sedentary Lifestyle Low Risk: >/= 1,500 kcal/week. Sedentary Lifestyle Moderate Risk: 700-1,499 kcal/week. Sedentary Lifestyle High Risk: < 700 kcal/week - For Depression Depression Risk Guidelines: Depression Low Risk: Not clinically depressed. Depression Moderate Risk: Mildly depressed. Depression High Risk: Clinically depressed - Family History Family History: Family History (Last Reviewed 05/18/18 @ 18:06 by LUCIA Prieto) Father No problems noted. Mother Cancer Brother Throat cancer Brother COPD (chronic obstructive pulmonary disease) Brother No problems noted. Sister COPD (chronic obstructive pulmonary disease) Heart disease Sister COPD (chronic obstructive pulmonary disease) Motivation - Motivation to Participate On a scale of 1 to 10, how prepared are you to commit to attending program?: 10 What do you see as barriers to successfully being able to complete the program?: BACK PAIN What do you see as the benefits of succesfully completing the program? In other words, what do you hope to get out of participating in the program?: INCREASE ENERGY LEVEL Are there issues you are dealing with that will interfere with completing the program?: YES BACK PAIN Do you have a spouse or signficant other, family or friends who will help support you to complete the program?: YES
--- NOTE | 2018-05-28 12:51 | CR.ITP_ITS ---
General Information - General Information Admitting Diagnosis: PCI WITH STENT Special Needs: USES A CANE FOR SUPPORT - Education/Goals Barriers to Learning: Low Literacy Individual Counseling: Initial Assessment: High Blood Pressure, Overweight/Obesity, B. Waist Circumference >35/Females >40/Males, Hypertension, Sedentary Lifestyle Cardiac Rehabilitation Goals: 1. Maintain the individual as the primary focus of care. 2. To improve the patient's quality of life. 3. Identification of cardiac risk factors and provide cardiac risk factor management. 4. Enhance the psychosocial status of the patient. 5. Reconditioning enough to allow the patient to resume customary activities. 6. Control symptoms of cardiac disease Scale for measuring improvement of personal goals: Enter appropriate number in Comments. 2 = Unchanged. 3 = Slightly Better. 4 = Moderate Improvement. 5 = Met my Goal Personal Goals: Initial Assessment: Improve energy level, Improve knowledge of cardiac disease, Improve muscle strength and endurance, Improve diet and eating habits (eat healthier), Control risk factors (learn risk factor modification) Exercise - Initial Assessment - Visit Date of Eval: 05/28/18 Session #:: 36 - Stages of Change Stages of Change:: Action - Stress Test SpO2 (%):: 98 EKG: NSR 68/MIN - Physician Prescribed Exercise Modalities: NuStep, SciFit Frequency (days/week): 3x/week for 12 weeks [36 sessions] Intensity: 60-80% age predicted maximum heart rate reserve Target Heart Rate:: 100-106 - Hypertension Do any of the following apply?: Yes Resting Blood Pressure:: 134/79 - Education Goals:: Warm-up, RPE PENNY Scale, S/S, Safe Exercise, Self-Monitoring - Exercise Program Goals Exercise Program Goals: Aerobic Activity >30 min Nutrition - Initial Assessment - Program Goals Nutrition Program Goals: LDL <70. Total Cholesterol <200. HDL >45. Triglycerides <150. HgbA1C <7%. BMI <25 - Visit Date of Assessment:: 05/28/18 - Diabetes Diabetes:: No - Weight Management Height: 1.7 m Weight:: 100.244 kg - Intervention Referral to dietitian:: No Referral to Diabetic Clinic:: No Will attend diet classes:: Yes - Education Gave educational materials for:: Healthy eating Tobacco - Initial Assessment - Program Goals Tobacco Program Goals: Complete smoking cessation. Attend education classes. Improve Knowledge Test score - Learning Barriers Learning Barriers: Literacy - Tobacco Use Tobacco Use: Non-smoker - Intervention Education Schedule Given:: Yes - Education Gave educational material for:: Coronary artery disease, Risk factors, Sexuality, Medical compliance, Cardiac A&P, Angina signs & symptoms Psychosocial - Initial Assess - Target Goals Target Goals: Assess presence or absence of depression. Using a valid screening tool, maximizes coping skills. Positive support system - Psychosocial Test Tool Used:: HANDS Depression Questionnaire - Intervention PS - Interventions: Yes Attend Stress Management Classes, No Referral to Mental Health, No Referral to [facility] Case Management, No Referral to Physician, No Uses Stress Management Skills - Education Gave educational materials for:: Coping techniques, Signs & symptoms of depression, Stress management, Relaxation techniques - Patient/Program Goal Preventative Medication(s):: Aspirin, Clopidogrel, Beta maria e, Statin/lipid - Assistive Devices Assistive Devices:: Cane, Wheelchair, Gait belt Fall Risk Assessed:: Yes Patient Health Questionnaire Initial Assessment 1. Little interest or pleasure in doing things: More than half the days 2. Feeling down, depressed, or hopeless: Not at all 3. Trouble falling or staying asleep, or sleeping too much: More than half the days 4. Feeling tired or having little energy: Nearly every day 5. Poor appetite or overeating: Not at all 6. Feeling bad about yourself -- or that you are a failure or have let yourself or your family down: Not at all 7. Trouble concentrating on things, such as reading the newspaper or watching television: Not at all 8. Moving or speaking so slowly that other people could have noticed. Or the opp osite - being so fidgety or restless that you have been moving around a lot more than usual: More than half the days 9. Thoughts that you would be better off , or of hurting yourself in some way: Not at all How difficult have these problems made it for you to do your work, take care of things at home, or get along with other people?: Somewhat difficult Total Score: 9 TALIA-Q SV Test - Statements CAD is a disease of the arteries in the heart: False Examples of risk factors for heart disease: I Don't Know Angina is chest pain or discomfort: I Don't Know The benefits of resistance training include: I Don't Know Eating more meat and dairy products: False Anti-platelet medications such as aspirin are important: True The only effective way to manage stress: False An exercise warm-up slowly increases heart rate: True Prepared, processed foods usually have high sodium: True Depression is common after a heart attack: True The statin medications lower cholesterol: True To control blood pressure, lower the amount of sodium: True If someone gets chest discomfort during walking: I Don't Know Transfats are partially hydrogenated vegetable oils: True Sleep apnea that is not treated increases the risk: True To control cholesterol, one should become a vegetarian: False Someone knows if he/she is exercising at the right level: True Diabetes cannot be prevented with exercise & health eating: False Stress is a large risk for heart attack: True A diet that can help lower blood pressure is rich in: True - Total Score Total Correct Responses: 15 Self-Efficacy Initial Assessment We would like to know how confident you are in doing certain activities. Please select your confidence level for:: Select your confidence level for the following using the scale 1-10 where 1 is not at all confident and 10 is totally confident. Your score is the average of all 6 responses. Fatigue: How confident are you that you can keep the fatigue caused by your disease from interfering with the things you want to do? Select Number: 3 Physical Discomfort or Pain: How confident are you that you can keep the physical discomfort or pain of your disease from interfering with the things you want to do? Select Number: 3 Emotional Distress: How confident are you that you can keep the emotional distress caused by your disease from interfering with the things you want to do? Select Number: 9 Other Symptoms or Health Problems: How confident are you that you can keep other symptoms or health problems from interfering with the things you want to do? Select Number: 8 Different Tasks and Activities: How confident are you that you can do the different tasks and activities needed to manage your health condition so as to reduce your need to see a doctor? Select Number: 2 Medication: How confident are you that you can do things other than just taking medication to reduce how much your illness affects your everyday life? Select Number: 7 Total Score:: 5 Nutrition Survey - Nutrition Survey Instructions Scoring Instructions: Scoring is as follows: Yes = 1 points. No = 0 point. Patient score that is >/=12 is considered to be at potential nutritional risk and could benefit from a referral to a registered dietitian. - Nutrition Survey Initial Have you lost >10 lbs over the past 2 months without trying?: No Are you following a special diet at home for diabetes, low fat, or low salt?: Yes Are you interested in meeting with a dietitian for help understanding your diet?: No Do you eat less than 3 meals a day?: Yes Do you eat fatty meats (smith, sausage, ribs, etc), fried foods, desserts, large amounts of salad dressings, margarine, butter, or cheese most days?: No Do you have food allergies? [Enter types in comment field]: No Do you season food with salt, seasoning salt, or garlic salt?: Yes Do you used canned, boxed, frozen meals, or soups, seasoning packets?: No
--- NOTE | 2018-05-28 12:51 | CR.HP_ITS ---
CR - History & Physical - General Arrival date:: 05/28/18 Arrival time:: 12:00 Date of Referral:: 05/18/18 Date of CR Evaluation:: 05/28/18 Referring Physician: Primary Diagnosis: PCI WITH STENT - History of Present Cardiac Event Onset Date: Enter Onset Date of cardiac illnesses in Comment field below PTCA or coronary stenting:: Yes - 05/13/18 - Medications Home Medications: Ambulatory Orders Medication Instructions Recorded Aspirin [Aspirin, Baby] 81 mg PO DAILY@0800 06/23/13 Metoprolol(XL)Succ [Toprol Xl 50 mg PO DAILY 06/23/13 (Beta Luis Felipe)] Cetirizine HCl [Zyrtec] 10 mg PO DAILY 03/25/15 Finasteride [Proscar] 5 mg PO DAILY 03/25/15 Isosorbide Mononitrate [Isosorbide 60 mg PO DAILY 03/25/15 Mononitrate ER] Multivit-Min/FA/Lycopen/Lutein 1 ea PO DAILY 03/25/15 [Centrum Silver Tablet] atorvastatin 40 mg tablet 40 mg PO QHS tab 05/08/17 lubiprostone 24 mcg capsule 24 mcg PO BID cap 05/08/17 magnesium oxide 400 mg (241.3 mg 400 mg PO QDAY tab 05/08/17 magnesium) tablet pantoprazole 20 mg tablet,delayed 40 mg PO DAILY 05/08/17 release furosemide 40 mg tablet 40 mg PO DAILY tab 12/05/17 tamsulosin 0.4 mg capsule 0.4 mg PO DAILY 30 Days #30 12/05/17 Albuterol IH (ProAir) [Proair Hfa] 2 puff INHALATION Q4H PRN PRN 05/10/18 Folic Acid 0.4 mg PO DAILY@0800 05/10/18 Travoprost 0.004% [Travatan-Z 1 drop EACH EYE QHS 05/10/18 0.004% Eye Drop] Varicella-Zoster Ge/As01b/Pf 50 mcg IM . DIRECTED 05/10/18 [Shingrix Vial Kit] Ticagrelor [Brilinta] 90 mg PO BID #180 tablet 05/14/18 Acetaminophen [Tylenol Tablet] 650 mg PO Q6H PRN PRN tablet 05/20/18 - Allergies Allergies/Adverse Reactions: Allergies diazepam [From Valium] Allergy (Intermediate, Verified 05/18/18 16:06) Other HALLUCINATIONS morphine Allergy (Intermediate, Verified 05/18/18 16:06) Other TWITCHES - Sleep Disorder Evaluation Hx of Sleep Apnea: Yes Do you snore loudly (louder than talking or can be heard through closed doors)?: Yes - SLEEP LAB TO CONTACT PATIENT OR REFIT Do you often feel tired/ fatigued/ sleepy during daytime?: Yes Has anyone observed you stop breathing during sleep?: No History of Hypertension (for STOP score): Yes - HE HAS A CPAP AT HOME BUT DOESN'T USE STOP Results: Positive Advanced Directives - Advanced Directives Power of Warm In Worker: No Living Will: No Advance Directives Information Provided: No Advance Directives on File: No DNR Order?:: No - MOLST See MOLST form: No Past Medical History - Past Medical Illness Medical History: Past Medical History (Last Updated 05/19/18 @ 16:49 by Lena Holder) Essential (primary) hypertension (Chronic) I10 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 of RCA with a 2.25 x 24 Promus Synergy and PTCA/EASTON of distal RCA in stent plaque protrusion with possible non occlusive thrombus w/ 3.5 x 32 Promus Synergy05/19/18 PTCA/EASTON distal RCA with a 3.5 x 38 Promus Syergy and EASTON mid RCA with a 4.0 x 32 Promus Synergy Stent 05/13/18 EASTON-Prox LAD w/ 3.5 mm x 20 mm Promus Stent 08/27/12 [id number] & proximal RCA 06/21/2002 Stroke (Chronic) I63.9 Hyperlipidemia (Chronic) E78.5 Right pulmonary embolus (Resolved) I26.99 Congestive heart failure (Inactive) I50.9 Systolic dysfunction Family history of hypertension (Inactive) 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.899 Precordial chest pain (Inactive) R07.2 Pulmonary hypertension (Inactive) 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 - Past Surgical History Surgical History: Past Surgical History (Last Updated 05/19/18 @ 16:49 by Lnea Holder) H/O coronary artery bypass surgery (Chronic) Onset Date: 09/12/00 Z95.1 CABG X 5 vessels: CASTILLO to LAD,left radial artery to RCA, SVG to first snd second DX branches of the LAD and SVG to the lateral CX which had aberrant origin from the RCA 09/12/2000 History of coronary artery stent placement (Chronic) Onset Date: 05/13/18 Z95.5 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 - Family History Summary Family History: Family History (Last Reviewed 05/18/18 @ 18:06 by LUCIA Prieto) Father , Unknown cause No problems noted. Mother Cancer Brother Throat cancer Brother COPD (chronic obstructive pulmonary disease) Brother , unknown cause No problems noted. Sister COPD (chronic obstructive pulmonary disease) Heart disease Sister COPD (chronic obstructive pulmonary disease) Social History - Smoking History Smoking Status: Former smoker Hx Smoking Cessation Date: QUIT AT AGE 17 - Alcohol Use Alcohol Usage: No - Substance Abuse Hx Substance Use: No - Occupation Occupation (List type of work in comments):: Retired - Hobbies, Recreation, Social Activities Hobbies: Other - SINGING [employer] FAMILY AT [employer] Recreational Activities: I am able to engage in a few activities Social Environment - Status Marital Status: - Current Living Arrangements Living Environment:: Spouse - Children How many children do you have?: 8 Do any of your children live nearby?: Yes - ONE SON AT HOME - Safety Do you feel safe in your surroundings?: Yes - Assistance Do you need any assistance at home?: NO Review of Systems - Review of Systems Hints: Right click = Denies (Slash). Left click = Reports ([place]) Review of Present Symptoms: Reports: Shortness of Breath at Rest, Shortness of Breath with Exertion, Angina, Dizziness/Lightheadedness - MIGRAINE HEADACHES 3- 4/WK TAKES EXCEDERINE HEADACHE PILLS., Fatigue - Pain Is Patient Pain Free?: No Pain Location: back - RUPTURED DISC CAUSING AI IN THE BACK DOWN THE HIP HE STATES HE HAS LIGHT PAIN EVERY DAY IN HIS CHEST1-05/10 Risk Factor Assessment - Vital Signs Pulse Ox: 98 Blood Pressure: 134/78 - Pulse Pulse Rate: 78 Pulse Rhythm: Regular - Hypertension On medication(s)?: YES Blood Pressure Sitting - Right Arm: 134/78 - Diabetes Nutrition Referral for Diabetes: No - Obesity Height: 1.7 m Weight:: 100.244 kg Weight in Pounds: 221.0 lbs Weight Source: Stated by Patient Body Mass Index (BMI): 34.6 - Risk Stratification Risk Guidelines: Lowest Risk: Risk Factor for Dyslipidemia, Risk Factor for Diabetes, Risk Factor for Depression, Moderate Risk: Risk Factor for Obesity, Risk Factor for Hypertension, Highest Risk: Risk Factor for Sedentary Lifestyle - For Smoking Smoking Risk Guidelines: Smoking Low Risk: None or quit greater than 6 months ago. Smoking Moderate Risk: Smoker or quit 6 months or less ago. Smoking High Risk: Smoker - For Dyslipidemia Dyslipidemia Risk Guidelines: Low Risk: Moderate Risk: High Risk: 15-25% fat 25.1-29% fat >/= 30% fat. <7% sat fat 7-9% sat fat >9% sat fat. <150 mg chol 150-299 mg chol >/= 300 mg chol. LDL <100 LDL 100-129 LDL >/= 130. Chol/HDL ratio <5.0 Chol/HDL ratio 5.0-6.0 Chol/HDL ratio >6.0. Triglycerides <100 Triglycerides 100-149 Triglycerides >/= 150 - For Diabetes Mellitus Diabetes Risk Guidelines: Diabetes Low Risk: HgA1c <6.5% and/or FBG <120. Diabetes Moderate Risk: HgA1c 6.6-7.9% and/or FBG 120-180. Diabetes High Risk: HgA1c >/= 8% and/or FBG >180 - For Obesity/Overweight Obesity/Overweight Risk Guidelines: Obesity Low Risk: BMI <25.0. Obesity Moderate Risk: BMI 25-29.9. Obesity High Risk: BMI >/= 30.0 - For Hypertension Hypertension Risk Guidelines: Hypertension Low Risk: Systolic <120 and Diastolic <80. Hypertension Moderate Risk: Systolic 120-139 and Diastolic 80-89. Hypertension High Risk: Systolic >/= 140 and Diastolic >/= 90 - For Sedentary Lifestyle Sedentary Lifestyle Risk Guidelines: Sedentary Lifestyle Low Risk: >/= 1,500 kcal/week. Sedentary Lifestyle Moderate Risk: 700-1,499 kcal/week. Sedentary Lifestyle High Risk: < 700 kcal/week - For Depression Depression Risk Guidelines: Depression Low Risk: Not clinically depressed. Depression Moderate Risk: Mildly depressed. Depression High Risk: Clinically depressed - Family History Family History: Family History (Last Reviewed 05/18/18 @ 18:06 by LUCIA Prieto) Father No problems noted. Mother Cancer Brother Throat cancer Brother COPD (chronic obstructive pulmonary disease) Brother No problems noted. Sister COPD (chronic obstructive pulmonary disease) Heart disease Sister COPD (chronic obstructive pulmonary disease) Motivation - Motivation to Participate On a scale of 1 to 10, how prepared are you to commit to attending program?: 10 What do you see as barriers to successfully being able to complete the program?: BACK PAIN What do you see as the benefits of succesfully completing the program? In other words, what do you hope to get out of participating in the program?: INCREASE ENERGY LEVEL Are there issues you are dealing with that will interfere with completing the program?: YES BACK PAIN Do you have a spouse or signficant other, family or friends who will help support you to complete the program?: YES
[2018-05-28 13:55] VITALS: BP 134/78; PULSE 78; O2SAT 98; BMI 34.6
[2018-05-28 14:11] VITALS: BP 134/79
== END ==
PROVIDERS: Family Provider Family Medicine Geriatric Medicine; PCP Family Medicine Geriatric Medicine; Referring Provider Internal Medicine Cardiovascular Disease; Visit Provider Internal Medicine Cardiovascular Disease
DX: I25.10 Atherosclerotic heart disease of native coronary artery without angina pectoris (principal); I27.21 Secondary pulmonary arterial hypertension; I10 Essential (primary) hypertension; Z95.1 Presence of aortocoronary bypass graft; Z95.5 Presence of coronary angioplasty implant and graft

== ENCOUNTER 2018-07-27 14:15 | Outpatient (RCR) | payer MEDICARE, OTHER, SELFPAY ==
[2018-05-28 13:55] VITALS: BMI 34.6
--- NOTE | 2018-06-24 08:53 | PCM.CR.ITP ---
Exercise - 30-day Assessment - Visit Date of Eval: 06/24/18 - Patient had to postpone starting his CR due to transportation issues. Session #:: 0 - Scheduled to start 07/01/2018 Tobacco - Initial Assessment - Program Goals Tobacco Program Goals: Complete smoking cessation. Attend education classes. Improve Knowledge Test score - Learning Barriers Learning Barriers: Literacy Psychosocial - Initial Assess - Target Goals Target Goals: Assess presence or absence of depression. Using a valid screening tool, maximizes coping skills. Positive support system - Psychosocial Test Tool Used:: HANDS Depression Questionnaire - Assistive Devices Fall Risk Assessed:: Yes
--- NOTE | 2018-07-24 08:18 | CR.ITP_ITS ---
General Information - General Information Admitting Diagnosis: PCI with stenting - Education/Goals Barriers to Learning: None Cardiac Rehabilitation Goals: 1. Maintain the individual as the primary focus of care. 2. To improve the patient's quality of life. 3. Identification of cardiac risk factors and provide cardiac risk factor management. 4. Enhance the psychosocial status of the patient. 5. Reconditioning enough to allow the patient to resume customary activities. 6. Control symptoms of cardiac disease Scale for measuring improvement of personal goals: Enter appropriate number in Comments. 2 = Unchanged. 3 = Slightly Better. 4 = Moderate Improvement. 5 = Met my Goal Exercise - 60-Day Assessment - Visit Date of Eval: 07/24/18 Session #:: 10 - Stages of Change Stages of Change:: Action - Physician Prescribed Exercise Modalities: NuStep Frequency (days/week): 3 Duration (Minutes):: 30-45 Intensity: 60-80% age predicted maximum heart rate reserve METs - Progression: 0.5-1.0 MET, RPE 11-14 WEEK: 2.5 Target Heart Rate:: 100-106 Max HR 78 - Hypertension Resting Blood Pressure:: 128/52 Peak Exercise Blood Pressure:: 148/78 - Intervention Home Exercise/Activity Goal:: Moderate Exercise 30 min/day x 5 days/wk - Education Goals:: Warm-up, RPE PENNY Scale, S/S, Safe Exercise, Self-Monitoring - Exercise Program Goals Exercise Program Goals: Aerobic Activity >30 min, B/P <130/80 Nutrition - 60-Day Assessment - Program Goals Nutrition Program Goals: LDL <70. Total Cholesterol <200. HDL >45. Triglycerides <150. HgbA1C <7%. BMI <25 - Visit Date of Eval: 07/24/18 - Stages of Change Stages of Change:: Action - Lipids Has the patient seen the dietitian?: No - Weight Management Weight:: 100.743 kg - Intervention Referral to dietitian:: No Referral to Diabetic Clinic:: No Will attend diet classes:: Yes - Education Attended class for:: Signs & symptoms of hypoglycemia, Signs & symptoms of hyperglycemia, Relate diabetes to coronary artery disease, Healthy eating Tobacco - Initial Assessment - Program Goals Tobacco Program Goals: Complete smoking cessation. Attend education classes. Improve Knowledge Test score - Learning Barriers Learning Barriers: Literacy Tobacco - 60-Day Assessment - Program Goals Tobacco Program Goals: Complete smoking cessation. Attend education classes. Improve Knowledge Test score - Stage of Change Stages of Change:: Action - Learning Barriers Learning Barriers: Participates in education - Family Support Do you have family support?: Yes - Tobacco Use Tobacco Use: Non-smoker - Intervention Smoking Cessation Referral:: No Individual Education/Counseling:: No Education Schedule Given:: Yes - Education Attended class for:: Tobacco triggers, Coronary artery disease, Risk factors, Sexuality, Medical compliance, Cardiac A&P, Angina signs & symptoms Psychosocial - Initial Assess - Target Goals Target Goals: Assess presence or absence of depression. Using a valid screening tool, maximizes coping skills. Positive support system - Psychosocial Test Tool Used:: HANDS Depression Questionnaire - Assistive Devices Fall Risk Assessed:: Yes Psychosocial - 60-Day Assess - Target Goals Target Goals: Assess presence or absence of depression. Using a valid screening tool, maximizes coping skills. Positive support system - Stages of Change Stages of Change:: Action - Psychosocial Test Tool Used:: HANDS Depression Questionnaire - Intervention PS - Interventions: Yes Attend Stress Management Classes, Yes Uses Stress Management Skills, No Referral to Mental Health, No Referral to [facility] Case Management, No Referral to Physician - Education Attended classes for:: Coping techniques, Signs & symptoms of depression, Stress management, Relaxation techniques - Assistive Devices Assistive Devices:: None Fall Risk Assessed:: Yes
[2018-07-24 08:21] VITALS: BP 128/52; BP 148/78
== END 2018-07-28 23:59 ==
LOC: CR 14:15
PROVIDERS: Family Provider Family Medicine Geriatric Medicine; PCP Family Medicine Geriatric Medicine; Referring Provider Internal Medicine Cardiovascular Disease; Visit Provider Internal Medicine Cardiovascular Disease
DX: I21.4 Non-ST elevation (NSTEMI) myocardial infarction (principal); I10 Essential (primary) hypertension; I27.21 Secondary pulmonary arterial hypertension; Z95.1 Presence of aortocoronary bypass graft; Z95.5 Presence of coronary angioplasty implant and graft
CPT/HCPCS: 93798

== ENCOUNTER 2018-08-28 14:15 | Outpatient (RCR) | payer MEDICARE, OTHER, SELFPAY ==
[2018-06-05 11:06] VITALS: BMI 34.0
[2018-07-29 00:20] VITALS: BP 128/52; BP 148/78
--- NOTE | 2018-08-26 08:36 | PCM.CR.ITP ---
General Information - General Information Admitting Diagnosis: PCI W/Stenting - Education/Goals Barriers to Learning: None Cardiac Rehabilitation Goals: 1. Maintain the individual as the primary focus of care. 2. To improve the patient's quality of life. 3. Identification of cardiac risk factors and provide cardiac risk factor management. 4. Enhance the psychosocial status of the patient. 5. Reconditioning enough to allow the patient to resume customary activities. 6. Control symptoms of cardiac disease Scale for measuring improvement of personal goals: Enter appropriate number in Comments. 2 = Unchanged. 3 = Slightly Better. 4 = Moderate Improvement. 5 = Met my Goal Exercise - 90-Day Assessment - Visit Date of Eval: 08/26/18 Session #:: 23 - Stages of Change Stages of Change:: Action - Physician Prescribed Exercise Modalities: NuStep Frequency (days/week): 3 Duration (Minutes):: 30-45 Intensity: 60-80% age predicted maximum heart rate reserve METs - Progression: 0.5-1.0 MET, RPE 11-14 WEEK: 3.5 Target Heart Rate:: 100-106 Max HR 74 - Hypertension Resting Blood Pressure:: 132/80 Peak Exercise Blood Pressure:: 142/82 - Intervention Home Exercise/Activity Goal:: Sitting Time <3 hrs/day - Education Goals:: Warm-up, RPE PENNY Scale, S/S, Safe Exercise, Self-Monitoring - Exercise Program Goals Exercise Program Goals: Aerobic Activity >30 min, B/P <130/80 Nutrition - 90-Day Assessment - Program Goals Nutrition Program Goals: LDL <70. Total Cholesterol <200. HDL >45. Triglycerides <150. HgbA1C <7%. BMI <25 - Visit Date of Eval: 08/26/18 - Stages of Change Stages of Change:: Action - Weight Management Weight:: 100.743 kg - Intervention Referral to dietitian:: No Referral to Diabetic Clinic:: No Will attend diet classes:: Yes - Education Attended class for:: Signs & symptoms of hypoglycemia, Signs & symptoms of hyperglycemia, Relate diabetes to coronary artery disease, Healthy eating Tobacco - Initial Assessment - Program Goals Tobacco Program Goals: Complete smoking cessation. Attend education classes. Improve Knowledge Test score - Learning Barriers Learning Barriers: Literacy Tobacco - 90-Day Assessment - Program Goals Tobacco Program Goals: Complete smoking cessation. Attend education classes. Improve Knowledge Test score - Stage of Change Stages of Change:: Action - Learning Barriers Learning Barriers: Participates in education - Family Support Do you have family support?: Yes - Tobacco Use Tobacco Use: Non-smoker - Intervention Smoking Cessation Referral:: No Individual Education/Counseling:: No Education Schedule Given:: Yes - Education Attended class for:: Tobacco triggers, Coronary artery disease, Risk factors, Sexuality, Medical compliance, Cardiac A&P, Angina signs & symptoms Psychosocial - Initial Assess - Target Goals Target Goals: Assess presence or absence of depression. Using a valid screening tool, maximizes coping skills. Positive support system - Psychosocial Test Tool Used:: HANDS Depression Questionnaire - Assistive Devices Fall Risk Assessed:: Yes Psychosocial - 90-Day Assess - Target Goals Target Goals: Assess presence or absence of depression. Using a valid screening tool, maximizes coping skills. Positive support system - Stages of Change Stages of Change:: Action - Psychosocial Test Tool Used:: HANDS Depression Questionnaire - Intervention PS - Interventions: Yes Attend Stress Management Classes, Yes Uses Stress Management Skills, No Referral to Mental Health, No Referral to [facility] Case Management, No Referral to Physician - Education Attended classes for:: Coping techniques, Signs & symptoms of depression, Stress management, Relaxation techniques - Assistive Devices Assistive Devices:: Cane, Wheelchair, Gait belt Fall Risk Assessed:: Yes
[2018-08-26 08:40] VITALS: BP 132/80; BP 142/82
== END 2018-08-28 23:59 ==
LOC: CR 14:15
PROVIDERS: Family Provider Family Medicine Geriatric Medicine; PCP Family Medicine Geriatric Medicine; Referring Provider Internal Medicine Cardiovascular Disease; Visit Provider Internal Medicine Cardiovascular Disease
DX: I21.4 Non-ST elevation (NSTEMI) myocardial infarction (principal); I10 Essential (primary) hypertension; I27.21 Secondary pulmonary arterial hypertension; Z95.1 Presence of aortocoronary bypass graft; Z95.5 Presence of coronary angioplasty implant and graft
CPT/HCPCS: 93798

== ENCOUNTER → 2018-09-08 16:24 | Outpatient (CLI) | payer MEDICARE, OTHER, SELFPAY ==
[2018-06-05 11:06] VITALS: BMI 34.0
--- NOTE | 2018-09-08 16:28 | RAD_ITS ---
STUDY: X-RAY - LUMBAR SPINE REASON FOR EXAM: Male, 83 years old. Back pain. TECHNIQUE: 3 view(s) of the lumbar spine were obtained. COMPARISON: January 22, 2016. FINDINGS: Lumbar levoscoliosis. Multilevel degenerative changes with disc space narrowing and osteophytosis. Prominent right lateral osteophytes L2-3 and L4-5. The soft tissue structures are unremarkable. Surgical clips right upper quadrant. Total right hip arthroplasty in normal alignment. Surgical clips in the pelvis. RAD/Lumbar Spine 2 or 3 Views IMPRESSION: No significant change in moderate to severe multilevel degenerative changes of the lumbar spine. Lumbar levoscoliosis. Electronically Signed: Moshe Rosales MD at 8:03 EDT , Service support ,
--- NOTE | 2018-09-08 16:28 | RAD_ITS ---
STUDY: X-RAY - LEFT SHOULDER REASON FOR EXAM: Male, 83 years old. Pain after fall. TECHNIQUE: 4 view(s) of the shoulder. COMPARISON: None. FINDINGS: Alignment is normal. No fracture or dislocation. Resection distal clavicle. Surgical anchor overlying the humeral head. The heart is enlarged. Sternal wires are present. Normal visualized pulmonary apex. RAD/Shoulder min 2 Views IMPRESSION: Postoperative changes left shoulder. No fracture identified. Electronically Signed: Moshe Rosales MD at 8:00 EDT , Service support ,
--- NOTE | 2018-09-08 16:30 | RAD_ITS ---
STUDY: X-RAY - CERVICAL SPINE REASON FOR EXAM: Male, 83 years old. Back pain. TECHNIQUE: 4 view(s) of the cervical spine were obtained. COMPARISON: None FINDINGS: Normal anterior atlantoaxial articulation. Normal odontoid process. Normal cervical lordosis. C7 and C7-T1 are not well-visualized on the lateral view. Normal vertebral bodies and endplates. Mild disc space narrowing at several levels. Normal visualized intervertebral neuroforamina. The soft tissue structures are unremarkable. RAD/Cerv Spine 2 or 3 Views IMPRESSION: Mild degenerative changes of the cervical spine, no fracture identified. C7 and C7-T1 not well-seen on lateral view. Consider additional view or CT.. Electronically Signed: Moshe Rosales MD at 6:17 EDT , Service support ,
== END ==
LOC: RAD 16:27
PROVIDERS: Family Provider Family Medicine Geriatric Medicine; PCP Family Medicine Geriatric Medicine; Referring Provider Anesthesiology Pain Medicine; Visit Provider Anesthesiology Pain Medicine
DX: M54.2 Cervicalgia (principal); M54.9 Dorsalgia, unspecified; M25.512 Pain in left shoulder
CPT/HCPCS: 72040; 72100; 73030

== ENCOUNTER → 2018-09-09 14:58 | Outpatient (CLI) | payer MEDICARE, OTHER, SELFPAY ==
[2018-06-05 11:06] VITALS: BMI 34.0
[2018-09-09 16:22] LABS: Absolute Neutrophil Count 3.4 X10^3/uL (2.0-7.7); Basophil# 0.02 X10^3/uL; Basophil% 0.3 % (0-1); Eosinophil# 0.24 X10^3/uL; Eosinophils% 3.8 % (0-5); Hematocrit 33.5 % (40-54); Hemoglobin 10.7 g/dl (13.0-16.5); Lymphocyte % 33.3 % (19-41); Mean Corp Hgb Conc 31.9 g/gl (32-36); Mean Corpuscular Hgb 26.9 pg (27.0-32.0); Mean Corpuscular Volume 84.2 fL (80-94); Mean Platelet Vol. 10.7 fl (6.2-12.0); Monocyte# 0.57 X10^3/uL; Neutrophil # 3.36 X10^3/uL (2.7-7.7); Neutrophil % 53.4 % (47-70); Platelet Count 205 K/mm3 (150-450); RBC Distribution Width CV 17.2 % (11.6-14.6); RBC Distribution Width SD 52.4 fl (35.1-43.9); Red Blood Count 3.98 M/mm3 (4.6-6.2); White Blood Count 6.3 K/mm3 (4.4-11.0)
[2018-09-09 16:23] LABS: POSITIVE COUNT NO; POSITIVE DIFFERENTIAL NO; POSITIVE MORPHOLOGY NO
[2018-09-09 16:49] LABS: Anion Gap 5 (5-15); BUN 16 mg/dL (7-18); BUN/Creat Ratio 13.4 RATIO (10-20); Calcium,Total 9.1 mg/dL (8.5-10.1); Chloride 110 mmol/L (98-107); Creatinine, Serum 1.19 mg/dL (0.70-1.30); EST Glomerular Filtration Rate 62 mL/min (>60); Est Glom Filt Rate - Afr Amer 75 mL/min (>60); Glucose 65 mg/dL (74-106); Potassium 4.7 mmol/L (3.5-5.1); Sodium Level 138 mmol/L (136-145)
== END ==
PROVIDERS: Family Provider Family Medicine Geriatric Medicine; PCP Family Medicine Geriatric Medicine; Referring Provider Nurse Practitioner Adult Health; Visit Provider Nurse Practitioner Adult Health
DX: R53.83 Other fatigue (principal)
CPT/HCPCS: 36415; 80048; 85025

== ENCOUNTER → 2018-09-10 13:12 | Outpatient (CLI) | payer MEDICARE, SELFPAY ==
[2018-06-05 11:06] VITALS: BMI 34.0
--- NOTE | 2018-09-10 13:17 | RAD_ITS ---
STUDY: X-RAY - RIGHT KNEE REASON FOR EXAM: Right knee pain. TECHNIQUE: 4 view(s) of the knee. COMPARISON: Radiographs 08/05/2017. FINDINGS: Normal visualized distal femur. Normal visualized proximal tibia and fibula. Normal proximal tibiofibular articulation. There are marginal osteophytes and moderate joint space narrowing of the medial femorotibial compartment. There are marginal osteophytes and severe joint space narrowing of the lateral femorotibial compartment, increased since the prior study. There are small marginal osteophytes without joint space narrowing of the patellofemoral articulation. There is vascular calcification. 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 Electronically Signed: Teodoro Prescott MD at 13:35 EDT Tel , Service support ,
== END ==
LOC: MTRAD 13:16
PROVIDERS: Family Provider Family Medicine; PCP Family Medicine; Referring Provider Nurse Practitioner Adult Health; Visit Provider Nurse Practitioner Adult Health
DX: M25.561 Pain in right knee (principal)
CPT/HCPCS: 73564

== ENCOUNTER → 2018-09-15 | Outpatient (CLI) | payer MEDICARE, SELFPAY ==
[2018-09-15 14:42] VITALS: BMI 34.0
[2018-09-15 15:59] LABS: BNP,B-Type NATRIURETIC PEPTIDE 419.2 pg/mL (0-100)
== END | disposition home or self-care (01) ==
LOC: LAB 14:52
PROVIDERS: Family Provider Family Medicine; PCP Family Medicine; Referring Provider Nurse Practitioner Family; Visit Provider Nurse Practitioner Family
DX: R06.09 Other forms of dyspnea (principal); I25.118 Atherosclerotic heart disease of native coronary artery with other forms of angina pectoris; I10 Essential (primary) hypertension
CPT/HCPCS: 36415; 83880

== ENCOUNTER 2018-09-23 14:15 | Outpatient (RCR) | payer MEDICARE, OTHER, SELFPAY ==
[2018-06-05 11:06] VITALS: BMI 34.0
[2018-08-29 00:25] VITALS: BP 132/80; BP 142/82
--- NOTE | 2018-09-23 08:21 | CR.ITP_ITS ---
General Information - General Information Admitting Diagnosis: PCI with stenting - Education/Goals Cardiac Rehabilitation Goals: 1. Maintain the individual as the primary focus of care. 2. To improve the patient's quality of life. 3. Identification of cardiac risk factors and provide cardiac risk factor management. 4. Enhance the psychosocial status of the patient. 5. Reconditioning enough to allow the patient to resume customary activities. 6. Control symptoms of cardiac disease Scale for measuring improvement of personal goals: Enter appropriate number in Comments. 2 = Unchanged. 3 = Slightly Better. 4 = Moderate Improvement. 5 = Met my Goal Exercise - Final/Discharge - Visit Date of Eval: 09/23/18 Session #:: 35 - Stages of Change Stages of Change:: Action - Physician Prescribed Exercise Modalities: NuStep Frequency (days/week): 3 Duration (Minutes):: 30-45 Intensity: 60-80% age predicted maximum heart rate reserve METs - Progression: 0.5-1.0 MET, RPE 11-14 WEEK: 3.5 Target Heart Rate:: 100-106 Max HR 80 - Hypertension Resting Blood Pressure:: 142/70 Peak Exercise Blood Pressure:: 154/82 - Intervention Home Exercise/Activity Goal:: Moderate Exercise 30 min/day x 5 days/wk - Education Goal Progress: Goal Met - Exercise Program Goals Exercise Program Goals: Aerobic Activity >30 min, B/P <130/80 Nutrition - Final Assessment - Program Goals Nutrition Program Goals: LDL <70. Total Cholesterol <200. HDL >45. Triglycerides <150. HgbA1C <7%. BMI <25 - Visit Date of Eval: 09/23/18 - Stages of Change Stages of Change:: Action - Weight Management Weight:: 100.743 kg - Intervention Referral to dietitian:: No Referral to Diabetic Clinic:: No Will attend diet classes:: Yes - Education Education Goal Reached?: Yes Tobacco - Initial Assessment - Program Goals Tobacco Program Goals: Complete smoking cessation. Attend education classes. Improve Knowledge Test score - Learning Barriers Learning Barriers: Literacy Tobacco - Final Assessment - Program Goals Tobacco Program Goals: Complete smoking cessation. Attend education classes. Improve Knowledge Test score - Stage of Change Stages of Change:: Action - Family Support Do you have family support?: Yes - Tobacco Use Tobacco Use: Non-smoker - Intervention Smoking Cessation Referral:: No Individual Education/Counseling:: No Education Schedule Given:: Yes - Education Education Goal Reached?: Yes Psychosocial - Initial Assess - Target Goals Target Goals: Assess presence or absence of depression. Using a valid screening tool, maximizes coping skills. Positive support system - Psychosocial Test Tool Used:: HANDS Depression Questionnaire - Assistive Devices Fall Risk Assessed:: Yes Psychosocial - Final Assessmen - Target Goals Target Goals: Assess presence or absence of depression. Using a valid screening tool, maximizes coping skills. Positive support system - Stages of Change Stages of Change:: Action - Psychosocial Test Tool Used:: HANDS Depression Questionnaire - Intervention PS - Interventions: Yes Attend Stress Management Classes, Yes Uses Stress Management Skills, No Referral to Mental Health, No Referral to [facility] Case Management, No Referral to Physician - Assistive Devices Assistive Devices:: Wheelchair Fall Risk Assessed:: Yes
[2018-09-23 08:34] VITALS: BP 142/70; BP 154/82
== END 2018-09-27 23:59 ==
LOC: CR 14:15
PROVIDERS: Family Provider Family Medicine Geriatric Medicine; PCP Family Medicine Geriatric Medicine; Referring Provider Internal Medicine Cardiovascular Disease; Visit Provider Internal Medicine Cardiovascular Disease
DX: I21.4 Non-ST elevation (NSTEMI) myocardial infarction (principal); I10 Essential (primary) hypertension; I27.21 Secondary pulmonary arterial hypertension; Z95.1 Presence of aortocoronary bypass graft; Z95.5 Presence of coronary angioplasty implant and graft
CPT/HCPCS: 93798

== ENCOUNTER 2018-10-04 11:23 | Inpatient (IN) | payer MEDICARE, SELFPAY ==
[2018-09-15 14:42] VITALS: BMI 34.0
[2018-10-04] VITALS (20 sets, daily range): BP systolic 151–173; BP diastolic 71–91; PULSE 64–85; RESP 12–31; TEMP 36.3–36.8; O2SAT 80–100; BMI 36.1; BMI 33.5; BMI 33.6
--- NOTE | 2018-10-04 11:37 | EKG12_ITS ---
Test Reason : CP Blood Pressure : / mmHG Vent. Rate : 079 BPM Atrial Rate : 079 BPM P-R Int : 168 ms QRS Dur : 102 ms QT Int : 430 ms P-R-T Axes : 029 -45 -22 degrees QTc Int : 493 ms Normal sinus rhythm Pulmonary disease pattern Incomplete right bundle branch block Left anterior fascicular block Moderate voltage criteria for LVH, may be normal variant Prolonged QT Abnormal ECG Confirmed by ALEXANDER GARZON, KWESI ([id number]), material expeditor KULWANT ZARCO ([id number]) on 10/06/2018 2:04:26 PM Referred By: MAMI Confirmed By:KWESI MUNOZ MD
--- NOTE | 2018-10-04 11:37 | RAD_ITS ---
STUDY: X-RAY CHEST REASON FOR EXAM: Male, 83 years old. Shortness of breath TECHNIQUE: Frontal view COMPARISON: May 18, 2018 FINDINGS: Stable sternotomy wires. The lungs are not fully expanded. There is no demonstrated pleural abnormality. Stable cardiomegaly Normal mediastinum and donnie. Normal visualized pulmonary arteries. Normal visualized aortic arch and descending thoracic aorta. Normal visualized thoracic spine. Normal visualized ribs, clavicles, and shoulders. There is no demonstrated abnormality of the visualized soft tissue structures of the upper abdomen. RAD/Chest 1 View (Portable) IMPRESSION: Cardiomegaly. Electronically Signed: Bakari Faust DO at 12:57 EDT Tel [phone], Service support ,
[2018-10-04] MEDS: Nitroglycerin Oint 1 INCH PACKET TRANSDERM. (12:05)
[2018-10-04] MEDS: Furosemide 100 MG/10 ML Vial 80 MG IV (12:06)
[2018-10-04 12:07] LABS: Anion Gap 6 (5-15); BUN 20 mg/dL (7-18); BUN/Creat Ratio 15.9 RATIO (10-20); Calcium,Total 8.9 mg/dL (8.5-10.1); Chloride 113 mmol/L (98-107); Creatinine, Serum 1.26 mg/dL (0.70-1.30); EST Glomerular Filtration Rate 58 mL/min (>60); Est Glom Filt Rate - Afr Amer 70 mL/min (>60); Estimated Creatinine Clearance 42.26 ml/min; Glucose 132 mg/dL (74-106); Potassium 4.5 mmol/L (3.5-5.1); Sodium Level 138 mmol/L (136-145)
--- NOTE | 2018-10-04 12:26 | CT_ITS ---
STUDY: CTA CHEST REASON FOR EXAM: Male, 83 years old. CHF, PE, dyspnea RADIATION DOSAGE (If Supplied By Facility): CTDIvol = ( 19.71 ) mGy, DLP = ( 486.38 ) mGycm TECHNIQUE: The examination was performed with the intravenous administration of 100 IV Isovue 370. Post-processing of the angiographic images was performed, with multiplanar reformation and 3D reconstruction. Individualized dose optimization techniques were used for this CT. COMPARISON: None. FINDINGS: Large filling defect is noted within the right main pulmonary artery extending into the proximal branches. This is compatible with pulmonary embolism. Calcified thoracic aorta and visualized great vessels. There is no demonstrated aortic dissection. Normal heart and pericardium. Normal mediastinum. Normal hilar regions. Normal visualized trachea and bronchi. The lungs are well expanded. Left upper and lower lobe infiltrates.. Normal pleura. Normal chest wall structures. Degenerative vertebral changes. Left renal cyst. Prior gastric surgery. CT/CTA Chest W/WO Contrast IMPRESSION: There is right-sided pulmonary embolism. No arterial dissection. Left pulmonary infiltrates. N.B. : The above information has been verbally conveyed by Bakari Faust DO to Sayra Hector MD, , on 10/04/2018 15:36:59 (ET). Electronically Signed: Bakari Faust DO at 15:19 EDT Tel [phone], Service support ,
[2018-10-04 13:06] LABS: Absolute Lymphocyte Count 1.14 X10^3/ul (0.83-4.51); Absolute Neutrophil Count 8.4 X10^3/uL (2.0-7.7); Basophil# 0.02 X10^3/uL; Basophil% 0.2 % (0-1); Eosinophil# 0.05 X10^3/uL; Eosinophils% 0.5 % (0-5); Hematocrit 34.7 % (40-54); Hemoglobin 11.2 g/dl (13.0-16.5); Lymphocyte # 1.14 X10^3/ul (4.0); Lymphocyte % 10.9 % (19-41); Mean Corp Hgb Conc 32.3 g/gl (32-36); Mean Corpuscular Hgb 27.2 pg (27.0-32.0); Mean Corpuscular Volume 84.2 fL (80-94); Mean Platelet Vol. 10.4 fl (6.2-12.0); Monocyte% 7.7 % (0-10); Neutrophil # 8.39 X10^3/uL (2.7-7.7); Neutrophil % 80.2 % (47-70); Platelet Count 162 K/mm3 (150-450); RBC Distribution Width CV 18.9 % (11.6-14.6); RBC Distribution Width SD 58.2 fl (35.1-43.9); Red Blood Count 4.12 M/mm3 (4.6-6.2); White Blood Count 10.5 K/mm3 (4.4-11.0)
[2018-10-04 13:10] LABS: Differential Indicated SCAN CRITERIA MET; POSITIVE COUNT YES; POSITIVE DIFFERENTIAL NO; POSITIVE MORPHOLOGY NO
[2018-10-04 13:27] LABS: Differential Comment SCANNED
[2018-10-04 13:28] LABS: Platelet Estimate ADEQUATE (ADEQ)
[2018-10-04 13:29] LABS: Anisocytosis 1+; Polychromasia RARE
[2018-10-04 13:33] LABS: BNP,B-Type NATRIURETIC PEPTIDE 955.2 pg/mL (0-100)
--- NOTE | 2018-10-04 15:40 | NURSING ---
DR SHADI PARSON
--- NOTE | 2018-10-04 15:41 | ED.DCSUM_ITS ---
- ER Visit Summary Date of Service: 10/04/18 Chief Complaint: [Chest pain] History of Present Illness: The patient is a 83 M [the emergency room chest pain or shortness of breath that started yesterday. Patient describes exertional dyspnea and pain that comes on with activity and improves with rest. Patient also says the pain is achy. On EMS arrival patient was noted to be hypoxic with O2 sat in the 50s. Patient not normally on home O2. Patient does have a history of coronary artery disease, CHF, hypertension, high cholesterol, and history of pulmonary embolism. Patient states his pulmonary embolism was about 5 years ago. He denies recent travel or surgery.] Physical Examination: [HEENT-PERRLA, EOMI. Cranial nerves II through XII grossly intact. TMs clear. Mucous membranes moist. No adenopathy. Cardiovascular-regular rate and rhythm without murmur or ectopy Lungs-bilaterally with some rales in the bases and diffuse rhonchi. Patient is tachypneic. No accessory muscle use or retractions. At the time I am evaluating the patient patient had already been placed on BiPAP. Abdomen-normoactive bowel sounds, soft, nontender, no rebound or rigidity, no peritoneal signs. Extremities-intact ?4, normal range of motion, normal pulses, atraumatic. Patient has edema both lower extremities of +3 symmetric.] Test Results: EKG obtain regular sinus rhythm with a ventricular rate of 79 bpm with an incomplete right bundle branch block and moderate LVH. CBC with differential showing a 10.5, hemoglobin 11.2, hematocrit 35, placement 62. Chemistries unremarkable. BUN was 20 creatinine 1.26. Troponin is 0.127. BNP was 955. Chest x-ray showed cardiomegaly otherwise nothing acute. Patient also had a CT of the chest that showed a large right-sided pulmonary embolism. [] Emergency Department Course and Treatment: [Initially given Lasix 80 mg IV. Patient also started on Lovenox 100 mg subcu.] Patient was started on BiPAP and tolerated it well. Treatment Plan: [Admit for further work-up and evaluation and treatment of his pulmonary embolism.] Disposition: [Admit] Impression: [Pulmonary embolism Hypoxemia] This note was generated with Digital [employer] software. It may contain incorrect words, spelling, and punctuation that were not noted in review of the chart prior to signing ED Disposition - Plan for ED Patient: Referrals: Calderon Ramirez MD [Primary Care Provider] -
--- NOTE | 2018-10-04 15:47 | NURSING ---
124 KORAM PULMONARY EMBOLISM, HYPOXIA
[2018-10-04] MEDS: Enoxaparin 100 MG/ML Syringe SC (15:49)
--- NOTE | 2018-10-04 16:27 | HP.PCM_ITS ---
History of Present Illness Date of Admission: 10/04/18 Chief Complaint: shortness of breath, chest pain The patient is a 83 year old M with an extensive past medical history as listed which includes a history of PE 5 years ago. He also has a history of CAD status post CABG in 2000 and also had drug-eluting stent placement in May 2018. Patient states he was taken off of his Coumadin recently. He was admitted with a complaint of shortness of breath and chest pain for about 2 days duration. Shortness of breath worsened and was assisted with orthopnea and PND and he also had bilateral lower extremity swelling which he says is not new. Symptoms did not improve and so he decided to come into the ED. He denied any history of recent travels or any recent surgeries. On admission in the ED, he was saturating at 85% on room air. Tachypneic with respiratory rate going up into the 30s during review. Was also elevated during review with systolic being in the 170s. Chemistry showed bicarb of 19 and initial troponin of 0.129 as well as BNP of 955. CBC was unremarkable. Chest x-ray showed cardiomegaly and chest CT done showed right-sided pulmonary embolism with left pulmonary infiltrates and no arterial dissection. He has been admitted to be managed for acute hypoxic respiratory failure due to PE and submassive PE. [] Past Medical History Past Medical History (Chronic Problems): Chronic Problems (Last Reviewed 06/05/18 @ 13:40 by Fito Alcala MD) Essential (primary) hypertension (Chronic) Secondary pulmonary arterial hypertension (Chronic) Atherosclerotic heart disease of [place] coronary artery with other forms of angina pectoris (Chronic) PTCA/EASTON Anomalous LCX off of RCA with a 2.25 x 24 Promus Synergy and PTCA/EASTON of distal RCA in stent plaque protrusion with possible non occlusive thrombus w/ 3.5 x 32 Promus Synergy05/19/18 PTCA/EASTON distal RCA with a 3.5 x 38 Promus Syergy and EASTON mid RCA with a 4.0 x 32 Promus Synergy Stent 05/13/18 EASTON-Prox LAD w/ 3.5 mm x 20 mm Promus Stent 08/27/12 [id number] & proximal RCA 06/21/2002 Hyperlipidemia (Chronic) Medical History: Medical History (Last Reviewed 06/05/18 @ 13:40 by Fito Alcala MD) NSTEMI (non-ST elevated myocardial infarction) (Acute) I21.4 Essential (primary) hypertension (Chronic) I10 Secondary pulmonary arterial hypertension (Chronic) I27.21 Atherosclerotic heart disease of [place] coronary artery with other forms of angina pectoris (Chronic) I25.118 PTCA/EASTON Anomalous LCX off of RCA with a 2.25 x 24 Promus Synergy and PTCA/EASTON of distal RCA in stent plaque protrusion with possible non occlusive thrombus w/ 3.5 x 32 Promus Synergy05/19/18 PTCA/EASTON distal RCA with a 3.5 x 38 Promus Syergy and EASTON mid RCA with a 4.0 x 32 Promus Synergy Stent 05/13/18 EASTON-Prox LAD w/ 3.5 mm x 20 mm Promus Stent 08/27/12 [id number] & proximal RCA 06/21/2002 Hyperlipidemia (Chronic) E78.5 CVA (cerebral vascular accident) I63.9 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 Pulmonary embolism I26.99 Right pulmonary embolus (Resolved) I26.99 Congestive heart failure (Inactive) I50.9 Systolic dysfunction Family history of hypertension (Inactive) Z82.49 long-term use of drug (Inactive) Z79.899 Precordial chest pain (Inactive) R07.2 Pulmonary hypertension (Inactive) 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 Allergies diazepam [From Valium] Allergy (Intermediate, Verified 10/04/18 11:24) Other HALLUCINATIONS morphine Allergy (Intermediate, Verified 10/04/18 11:24) Other TWITCHES Home Medications: Ambulatory Orders Medication Instructions Recorded Aspirin [Aspirin, Baby] 81 mg PO DAILY@0800 06/23/13 Metoprolol(XL)Succ [Toprol Xl 50 mg PO DAILY 06/23/13 (Beta Luis Felipe)] Cetirizine HCl [Zyrtec] 10 mg PO DAILY 03/25/15 Isosorbide Mononitrate [Isosorbide 60 mg PO DAILY 03/25/15 Mononitrate ER] Multivit-Min/FA/Lycopen/Lutein 1 ea PO DAILY 03/25/15 [Centrum Silver Tablet] atorvastatin 40 mg tablet 40 mg PO QHS tab 05/08/17 magnesium oxide 400 mg (241.3 mg 400 mg PO QDAY tab 05/08/17 magnesium) tablet furosemide 40 mg tablet 40 mg PO DAILY tab 12/05/17 tamsulosin 0.4 mg capsule 0.4 mg PO DAILY 30 Days #30 12/05/17 Folic Acid 0.4 mg PO DAILY@0800 05/10/18 Travoprost 0.004% [Travatan-Z 1 drop EACH EYE QHS 05/10/18 0.004% Eye Drop] Ticagrelor [Brilinta] 90 mg PO BID #180 tablet 05/14/18 Acetaminophen [Tylenol Tablet] 650 mg PO Q6H PRN PRN tablet 05/20/18 Lubiprostone [Amitiza] 24 mcg PO BID 10/04/18 Surgical History: Surgical History (Last Reviewed 06/05/18 @ 13:40 by Fito Alcala MD) H/O coronary artery bypass surgery (Resolved) Onset Date: 09/12/00 Z95.1 CABG X 5 vessels: CASTILLO to LAD,left radial artery to RCA, SVG to first snd second DX branches of the LAD and SVG to the lateral CX which had aberrant origin from the RCA 09/12/2000 History of coronary artery stent placement (Resolved) Onset Date: 05/13/18 Z95.5 PTCA/EASTON Anomalous LCX off of RCA with a 2.25 x 24 Promus Synergy and PTCA/EASTON of distal RCA in stent plaque protrusion with possible non occlusive thrombus w/ 3.5 x 32 Promus Synergy05/19/18 PTCA/EASTON distal RCA with a 3.5 x 38 Promus Syergy and EASTON mid RCA with a 4.0 x 32 Promus Synergy Stent 05/13/18 EASTON-Prox LAD w/ 3.5 mm x 20 mm Promus Stent 08/27/12 [id number] & proximal RCA 06/21/2002 History of repair of hiatal hernia Z98.890, Z87.19 Surgical History: coronary bypass surgery, total hip arthroplasty, - - Hiatal hernia surgery. Psychiatric History: No pertinent psych hx Smoking Status: Former smoker - *Family History Maternal Family History: Family History (Last Reviewed 06/05/18 @ 13:40 by Fito Alcala MD) Father No problems noted. Mother Cancer Brother Throat cancer Brother COPD (chronic obstructive pulmonary disease) Brother No problems noted. Sister COPD (chronic obstructive pulmonary disease) Heart disease Sister COPD (chronic obstructive pulmonary disease) History Items: No pertinent history Paternal Family History: Family History (Last Reviewed 06/05/18 @ 13:40 by Fito Alcala MD) Father No problems noted. Mother Cancer Brother Throat cancer Brother COPD (chronic obstructive pulmonary disease) Brother No problems noted. Sister COPD (chronic obstructive pulmonary disease) Heart disease Sister COPD (chronic obstructive pulmonary disease) History Items: No pertinent history Review of Systems Constitutional: Denies: Chills, Fever, Malaise, Weakness, Weight Change HEENT: Denies: Head Aches, Sinus Congestion, Sinus Drainage Cardiovascular: Reports: Chest Pain, Chest Tightness, Edema, Orthopnea, Paroxysmal Noc. Dyspnea. Denies: Chest Pressure, Palpitations, Syncope Respiratory: Reports: Shortness of Breath, Shortness of breath at rest, Shortness of breath upon exertion Gastrointestinal: Denies: Abdominal Pain, Nausea, Vomiting Genitourinary: Denies: Dysuria Musculoskeletal: Denies: Joint Pain, Joint Tenderness Skin: Denies: Rash, Wounds Neurological: Denies: Numbness, Tingling, Focal weakness Psychiatric: Denies: Anxiety, Depression, Homicidal Ideations, Suicidal Ideations Hematologic/ Lymphatic: Denies: Easy Bruising, Easy Bleeding VTE Information - Inpt Only VTE Present on Admission: Yes VTE Pharm Prophylaxis ordered?: Yes - Physical Exam General: Alert, Oriented x3, Cooperative, No apparent distress HEENT: Atraumatic, PERRLA, EOMI, Normocephalic Oral: Moist Mucosa Neck: Supple, No JVD, Negative Carotid Bruits Lungs: Short of Breath, Tachypneic, Using Accessory Muscles, - - on BIPAP. Decreased breath sounds bibasally, with some crackles auscultated Cardiovascular: Regular rate, Regular Rhythm, Normal S1, Normal S2, No murmurs Abdomen: Bowel Sounds Present, Soft, Non Tender Extremities: No clubbing, No cyanosis, Capillary Refill Less than 3 Seconds, - - bilateral LE pitting edema Skin: No rashes, No breakdown Musculoskeletal: No Tenderness to Palpation of Joints or Extremities Lymphatic: No Cervical, Supraclavicular, or Inguinal Adenopathy Neurological: Cranial nerves II-XII grossly intact, Neuro grossly intact, Motor Exam 5/5 strength throughout Psych/Mental Status: Normal Affect, Appropriate, Alert and oriented to time, place, person, mood and affect Vital Signs Temp Pulse Resp BP Pulse Ox 98 F 71 24 H 173/91 H 92 10/04/18 16:10 10/04/18 16:10 10/04/18 16:10 10/04/18 16:10 10/04/18 15:17 Oxygen Delivery Method Bi-pap Weight: 231 lb 0.711 oz Body Mass Index (BMI) 36.1 Laboratory Tests Past 24 Hrs 10/04/18 10/04/18 10/04/18 11:37 12:45 12:45 WBC 10.5 RBC 4.12 L Hgb 11.2 L Hct 34.7 L MCV 84.2 MCH 27.2 MCHC 32.3 RDW 18.9 H RDW Differential 58.2 H Plt Count 162 MPV 10.4 Immature Gran % (Auto) 0.500 Neut % (Auto) 80.2 H Lymph % (Auto) 10.9 L Maries % (Auto) 7.7 Eos % (Auto) 0.5 Baso % (Auto) 0.2 Absolute Neuts (auto) 8.4 H Absolute Lymphs (auto) 1.14 Total Counted Not Reportable Differential Comment SCANNED Platelet Estimate ADEQUATE Polychromasia RARE Anisocytosis 1+ Sodium 138 Potassium 4.5 Chloride 113 H Carbon Dioxide 19.0 L Anion Gap 6 BUN 20 H Creatinine 1.26 Estim Creat Clear Calc 42.26 Est GFR (MDRD) Af Amer 70 Est GFR (MDRD) Non-Af 58 L BUN/Creatinine Ratio 15.9 Glucose 132 H Calcium 8.9 Troponin I 0.129 H B-Natriuretic Peptide 955.2 H Diagnostic Data Chest X-Ray 10/04/18 11:37 IMPRESSION: Cardiomegaly. Electronically Signed: Bakari Faust DO at 12:57 EDT Tel [phone], Service support , Chest CTA 10/04/18 12:26 IMPRESSION: There is right-sided pulmonary embolism. No arterial dissection. Left pulmonary infiltrates. N.B. : The above information has been verbally conveyed by Bakari Faust DO to Sayra Hector MD, , on 10/04/2018 15:36:59 (ET). Electronically Signed: Bakari Faust DO at 15:19 EDT Tel [phone], Service support , Assessment/Plan All Active Problems (Last Reviewed 06/05/18 @ 13:40 by Fito Alcala MD) Dyspnea on exertion (Acute) LUQ abdominal pain (Acute) NSTEMI (non-ST elevated myocardial infarction) (Acute) H/O coronary artery bypass surgery (Resolved 09/12/00) History of coronary artery stent placement (Resolved 05/13/18) Cellulitis (Resolved) Cellulitis and abscess of left lower extremity (Resolved) Chest pain (Resolved) Right pulmonary embolus (Resolved) 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 (Resolved) 83 y/o male admitted with a complaint of SOB and chest pain 1. Acute hypoxic respiratory failure due to right sided submassive PE * Admit to PCU with telemetry * CT of the chest showed right-sided PE. Patient had been on Coumadin but it was recently discontinued after he came in and had drug-eluting stent placement in the RCA on account of CAD. * Patient was put on Brilinta and is also on aspirin. * I believe that due to the risk of bleeding with patient being on triple anticoagulants, that is why Coumadin was discontinued. * Initial troponin was 0.129 and BNP was 955.2. This could be due to cardiac strain from PE though he also has a history of heart failure and so acute exacerbation of heart failure cannot be ruled out. * Patient started on Lovenox in the ED. We will continue for now and switch to oral anticoagulant tomorrow. * Trend troponin. * Consult pulmonology. * Stat ABG ordered in the ED and results are pending. * Breathing treatments. * BIPAP * 2D echo ordered * patient counselled he will need to be on anticoagulation for life now * 2. Right-sided submassive PE:as under 1. 3. Acute on chronic exacerbation of heart failure with preserved ejection fraction: * EF is 65% from 2D echo in 05/19 * Hold p.o. Lasix. Start IV Lasix 40 mg twice daily. * Monitor input and output. * Fluid restriction to 1500 cc daily. * Continue metoprolol * 4. CAD status post CABG and stent: * Had drug-eluting stent placed in the RCA in May 2018 for NSTEMI. Subsequently had restenosis of recently placed stent. Currently on aspirin and Brilinta. Will continue. * Due to drug-eluting stent being placed just about 5 months ago, will continue dual antiplatelets due to risk of in-stent stenosis. * Patient counseled that he is at risk of bleeding as he is on dual antiplatelet plus anticoagulant now. * Continue statin. 5. Elevated troponin: * EKG showed no acute ST changes. * This could be due to troponin leak from right-sided PE. Though he also had chest pain, non-STEMI as well as on my list of differential due to the PE explaining the elevated troponin. * Will trend troponin and monitor. * Consult cardiology * 6. IBS: On lubiprostone DVT prophylaxis: Not indicated as patient has acute PE CODE STATUS: Full code * Patient counseled extensively about different types of CODE STATUS including full code, DNR CCA and DNR CCA. Patient elects to be full code. Total [id number] time 17 minutes. Code Visit Inpatient E&M: 12385 Init Hosp L3 Procedures: 12506 Advncd Care Plan 30 Min
[2018-10-04 17:11] LABS: Allen Test POS; Base Excess -2 mmol/L (-2 to +2); Bicarbonate 21.7 mmol/L (22-26); Blood Gas Specimen Type ART; EPAP 8; FI02 45; IPAP 14; PO2 106 mmHG (75-100); RR 12; SITE L Radial; SO2 98 % (95-99); Time Given 1655; Total Carbon Dioxide 23 mmol/L; pCO2 31.8 mmHg (35-45); pH 7.44 (7.35-7.45)
--- NOTE | 2018-10-04 17:48 | NURSING ---
Attempted to complete home medication list. Neither the patient not his know what medications patient is currently on. RN called [facility] to obtain medication list. Many medications hadn't been refilled for a while and family is unsure if he should still be taking. at bedside and states that there is no one at home to verify medications with patient's pill bottles. Patient states that he just switched PCP to Dr. Ramirez at [facility].
[2018-10-04] MEDS: Furosemide 40 MG/4 ML Vial IV (18:50)
[2018-10-04] MEDS: Tamsulosin HCl 0.4 MG Capsule PO (18:50)
[2018-10-04] MEDS: 0.9% NaCl Peripheral Flush Adult/Peds IV (18:51)
[2018-10-04] MEDS: TICAGRELOR 90 MG TABLET PO (23:15)
[2018-10-04] MEDS: Atorvastatin Calcium 40 MG Tablet PO (23:33)
[2018-10-04] MEDS: Latanoprost 0.005% 1 Bottle 1 DRP EACH EYE (23:33)
[2018-10-05] VITALS (23 sets, daily range): BP systolic 101–137; BP diastolic 55–70; PULSE 65–88; RESP 12–30; TEMP 36.5–37.1; O2SAT 92–99
--- NOTE | 2018-10-05 01:04 | NURSING ---
BIPAP ALARMING. PT HAD TAKEN OFF HIS BIPAP. DESATS INTO 70%. BIPAP QUICKLY REAPPLIED. PT RESPONDING TO VERBAL QUESTIONS. INCONT OF URINE. COMPLETE BED CHANGE DONE AT THIS TIME. 02 SATS INCREASED 94% WITH BIPAP IN TACT.
--- NOTE | 2018-10-05 01:49 | NURSING ---
2200: placed on 6l n/c to give hs meds. pt reports he needs to spit. mod amount of blood tinged sputum noted. pt started to desat on 6l n/c down to 70%. suctioned pt's mouth with yankaur and then placed back on bipap. called [facility]PS for high flow 02 tubing. pt also noted to have dislodged r hand iv. new saline lock started in r wrist.#22 ga. pt oxygen starating to rebound to 94% now on bipap. will retry adminstration of meds on 10l n/c.
--- NOTE | 2018-10-05 01:53 | NURSING ---
2315: placed on 10 l high flow 02 in order to give hs meds. 02 maintained at 92-94%. pt took meds at this time. some difficulty with his lipitor pill but was able to get it down
--- NOTE | 2018-10-05 05:55 | ECHOD_ITS ---
Reason For Study: AFIB/FLUTTER Procedure This was a 2D Doppler, Color Flow transthoracic echocardiogram. The study was technically difficult. Due to patient discomfort. Apical views were obtained above the breast near axillary area. Unable to ustilize Definity due to peak TR 77.1 mmHg. PT had active chest pain and near syncope beginning at image # 50 & throughout exam, changed EKG lead at that time. Notified Bob MORATAYA. Exam performed portable in patient room. Left Ventricle Normal LV size. Moderate concentric left ventricular hypertrophy. Left ventricular systolic function is normal. The estimated ejection fraction is 65 %. Stage 2 diastolic dysfunction. No regional wall motion abnormalities noted. Right Ventricle Normal RV size. Normal systolic function. Atria The left atrium is mildly enlarged. The right atrium is mildly enlarged. Mitral Valve Normal mitral valve. Tricuspid Valve Normal tricuspid valve. Moderate (2+) tricuspid valve insufficiency. Severe pulmonary hypertension. Pulmonary artery systolic pressure is 82 mmHg. Aortic Valve Normal aortic valve. Trisinus/trileaflet aortic valve. Pulmonic Valve Normal pulmonic valve. Great Vessels Normal aortic root. The pulmonary artery is normal size. Normal inferior vena cava. Pericardium/Pleural No pericardial effusion. MMode/2D Measurements & Calculations LVIDd: 3.9 cm IVSd: 1.3 cm Ao root diam: 3.5 cm LVIDs: 2.2 cm LVPWd: 1.2 cm FS: 41.9 % LAV(MOD-bp): 73.1 ml LA A4 area: 22.7 cm2 LA dimension(2D): 3.7 cm LAV(MOD-bp) Indexed: 35.1 ml/m2 LAV(MOD-sp2): 70.2 ml LAV(MOD-sp4): 72.9 ml RA A4 area: 21.2 cm2 Doppler Measurements & Calculations MV E max mayank: 77.6 cm/sec Lat Peak E' Mayank: 8.9 cm/sec Med Peak E' Mayank: 4.9 cm/sec MV A max mayank: 84.6 cm/sec E/E' lat: 8.7 E/E' med: 15.8 MV E/A: 0.92 Ao V2 max: 133.9 cm/sec LV V1 max: 100.4 cm/sec PA V2 max: 73.3 cm/sec Ao max P.2 mmHg LV V1 max P.0 mmHg TR max mayank: 423.1 cm/sec TR max P.1 mmHg Interpretation Summary Normal LV size. Left ventricular systolic function is normal. Moderate concentric left ventricular hypertrophy. The estimated ejection fraction is 65 %. Moderate (2+) tricuspid valve insufficiency. Severe pulmonary hypertension. Stage 2 diastolic dysfunction. Pulmonary artery systolic pressure is 82 mmHg. Comparedto the prveiuos the pulmonary pressures have increased. Ordering Physician: Laurel Hernandez Referring Physician: Calderon Ramirez Performed By: Roberta Arguelles, BRADLEY, RVT
[2018-10-05 06:14] LABS: Absolute Lymphocyte Count 1.37 X10^3/ul (0.83-4.51); Absolute Neutrophil Count 10.1 X10^3/uL (2.0-7.7); Basophil# 0.01 X10^3/uL; Basophil% 0.1 % (0-1); Eosinophil# 0.03 X10^3/uL; Eosinophils% 0.2 % (0-5); Hematocrit 32.9 % (40-54); Hemoglobin 10.6 g/dl (13.0-16.5); Lymphocyte # 1.37 X10^3/ul (4.0); Lymphocyte % 10.9 % (19-41); Mean Corp Hgb Conc 32.2 g/gl (32-36); Mean Corpuscular Hgb 26.4 pg (27.0-32.0); Mean Corpuscular Volume 81.8 fL (80-94); Mean Platelet Vol. 10.6 fl (6.2-12.0); Monocyte# 1.06 X10^3/uL; Monocyte% 8.4 % (0-10); Neutrophil # 10.09 X10^3/uL (2.7-7.7); Neutrophil % 80.2 % (47-70); Platelet Count 159 K/mm3 (150-450); RBC Distribution Width CV 18.9 % (11.6-14.6); RBC Distribution Width SD 56.4 fl (35.1-43.9); Red Blood Count 4.02 M/mm3 (4.6-6.2); White Blood Count 12.6 K/mm3 (4.4-11.0)
[2018-10-05 06:20] LABS: Anion Gap 8 (5-15); BUN 26 mg/dL (7-18); BUN/Creat Ratio 20.2 RATIO (10-20); Calcium,Total 8.8 mg/dL (8.5-10.1); Chloride 108 mmol/L (98-107); Creatinine, Serum 1.29 mg/dL (0.70-1.30); EST Glomerular Filtration Rate 57 mL/min (>60); Est Glom Filt Rate - Afr Amer 69 mL/min (>60); Estimated Creatinine Clearance 41.28 ml/min; Glucose 127 mg/dL (74-106); Potassium 3.9 mmol/L (3.5-5.1); Sodium Level 141 mmol/L (136-145)
[2018-10-05] MEDS: Enoxaparin 100 MG/ML Syringe SC (06:26)
[2018-10-05 06:34] LABS: POSITIVE COUNT NO; POSITIVE DIFFERENTIAL NO; POSITIVE MORPHOLOGY NO
--- NOTE | 2018-10-05 07:43 | CON.PCM_ITS ---
Reason for Consult Date of Consultation: 10/05/18 Reason for Consultation: Shortness of breath History of Present Illness: LOVELY SINGH, is a 83 M who presents to the hospital with shortness of breath . He has a history of coronary artery disease with bypass surgery on 09/12/2000. 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 He also has a history of hypertension, hyperlipidemia and previous pulmonary embolism. He was taken off his coagulation due to his recent stent placement. He has been having intermittent chest discomfort. He was seen in the emergency room and evaluated with a chest x-ray and CT scan which demonstrated evidence of pulmonary embolism. He also had mildly elevated troponin and natruretic peptide. Cardiology was called for further evaluation and management. Past Medical History Allergies/Adverse Reactions: Allergies diazepam [From Valium] Allergy (Intermediate, Verified 10/04/18 11:24) Other HALLUCINATIONS morphine Allergy (Intermediate, Verified 10/04/18 11:24) Other TWITCHES Home Medications: Ambulatory Orders Medication Instructions Recorded Aspirin [Aspirin, Baby] 81 mg PO DAILY@0800 06/23/13 Metoprolol(XL)Succ [Toprol Xl 50 mg PO DAILY 06/23/13 (Beta Luis Felipe)] Cetirizine HCl [Zyrtec] 10 mg PO DAILY 03/25/15 Isosorbide Mononitrate [Isosorbide 60 mg PO DAILY 03/25/15 Mononitrate ER] Multivit-Min/FA/Lycopen/Lutein 1 ea PO DAILY 03/25/15 [Centrum Silver Tablet] atorvastatin 40 mg tablet 40 mg PO QHS tab 05/08/17 magnesium oxide 400 mg (241.3 mg 400 mg PO QDAY tab 05/08/17 magnesium) tablet furosemide 40 mg tablet 40 mg PO DAILY tab 12/05/17 tamsulosin 0.4 mg capsule 0.4 mg PO DAILY 30 Days #30 12/05/17 Folic Acid 0.4 mg PO DAILY@0800 05/10/18 Travoprost 0.004% [Travatan-Z 1 drop EACH EYE QHS 05/10/18 0.004% Eye Drop] Ticagrelor [Brilinta] 90 mg PO BID #180 tablet 05/14/18 Acetaminophen [Tylenol Tablet] 650 mg PO Q6H PRN PRN tablet 05/20/18 Hydrocodone/Acetaminophen [[place] 1 tab PO TID 10/04/18 5-325 Tablet] Lubiprostone [Amitiza] 24 mcg PO BID 10/04/18 Naproxen 500 mg PO BID 10/04/18 Past Medical History (Chronic Problems): Chronic Problems (Last Reviewed 06/05/18 @ 13:40 by Fito Alcala MD) Essential (primary) hypertension (Chronic) Secondary pulmonary arterial hypertension (Chronic) 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 Psychiatric History: No pertinent psych hx - *Family History Maternal Family History: Family History (Last Reviewed 06/05/18 @ 13:40 by Fito Alcala MD) Father No problems noted. Mother Cancer Brother Throat cancer Brother COPD (chronic obstructive pulmonary disease) Brother No problems noted. Sister COPD (chronic obstructive pulmonary disease) Heart disease Sister COPD (chronic obstructive pulmonary disease) History Items: No pertinent history Paternal Family History: Family History (Last Reviewed 06/05/18 @ 13:40 by Fito Alcala MD) Father No problems noted. Mother Cancer Brother Throat cancer Brother COPD (chronic obstructive pulmonary disease) Brother No problems noted. Sister COPD (chronic obstructive pulmonary disease) Heart disease Sister COPD (chronic obstructive pulmonary disease) History Items: No pertinent history Lives: Spouse/ Significant Other Alcohol: None Drugs: None Review of Systems - Review of Systems General: Denies: Fever, Night Sweats, Fatigue HEENT: Denies: Vision Change Cardiovascular: Reports: Chest Discomfort, Shortness of Breath. Denies: Orthopnea, PND, Peripheral Edema, Palpitations, Lightheadedness, Dizziness, Near Syncope, Syncope Respiratory: Denies: Cough, Sputum Production, Hemoptysis Gastrointestinal: Denies: Hematemesis, Hematochezia, Melena Genitourinary: Denies: Dysuria, Hematuria Muscoloskeletal: Denies: Myalgias Skin: Denies: Rash Neurological: Denies: Dizziness Psychiatric: Denies: Anxiety Hematologic/ Lymphatic: Denies: Anemia Subjectve: Patient seen and evaluated. Appears to be sleeping. Objective: Vital Signs Temp Pulse Resp BP Pulse Ox 98.8 F 69 25 H 132/61 H 97 10/05/18 06:00 10/05/18 06:00 10/05/18 06:00 10/05/18 06:00 10/05/18 06:00 Oxygen Flow Rate (L/min) 6 Oxygen Delivery Method Bi-pap Weight: 214 lb 4.629 oz Body Mass Index (BMI) 33.5 Intake and Output for Last 24 Hours 10/03/18 10/04/18 10/05/18 23:59 23:59 23:59 Intake Total 250 / 450 350 / 350 Output Total 400 / 400 Balance -150 / 50 350 / 350 General: Awake, Alert, Oriented x 3 HEENT: PERRL, EOMI, Sclera Non Icteric Neck: Supple, Good ROM, No Lymph Node Enlargement Lungs: Clear to auscultation Cardiovascular: Regular Rhythm, Normal S1, Normal S2, No Murmurs, No Rubs, No Gallops Vascular: No Carotid Bruits, Normal Femoral Pulses, Normal Radial Pulses, Normal Dorsalis Pedal Pulse, Normal Posterior Tibial Pulses Abdomen: Bowel Sounds Present, Soft, Non Tender, No HSM, No Organomegaly Extremities: No Cyanosis, No Clubbing, No edema Musculoskeletal: No Erythema Skin: No Rashes Lymphatic: No Lymph Node Enlargement Neurological: No Focal Motor or Sensory Deficit Psych/Mental Status: Appropriate 10/04/18 11:37: Sodium 138, Potassium 4.5, Chloride 113 H, Carbon Dioxide 19.0 L , Anion Gap 6, BUN 20 H, Creatinine 1.26, Est GFR (MDRD) Af Amer 70, Est GFR (MDRD) Non-Af 58 L, BUN/Creatinine Ratio 15.9, Glucose 132 H, Calcium 8.9, Troponin I 0.129 H 10/04/18 12:45: WBC 10.5, RBC 4.12 L, Hgb 11.2 L, Hct 34.7 L, MCV 84.2, MCH 27.2, MCHC 32.3, RDW 18.9 H, RDW Differential 58.2 H, Plt Count 162, MPV 10.4, Immature Gran % (Auto) 0.500, Neut % (Auto) 80.2 H, Lymph % (Auto) 10.9 L, [place] % (Auto) 7.7, Eos % (Auto) 0.5, Baso % (Auto) 0.2, Absolute Neuts (auto) 8.4 H, Total Counted Not Reportable 10/04/18 12:45: B-Natriuretic Peptide 955.2 H 10/04/18 17:04: pH 7.44, Bicarbonate Actual 21.7 L, POC Total CO2 23, Base Excess -2, O2 Saturation 98, ABG pCO2 31.8 L, ABG pO2 106 H, Pawel Test POS 10/04/18 17:30: Troponin I 0.138 H 10/04/18 19:36: Troponin I 0.121 H 10/05/18 05:40: Sodium 141, Potassium 3.9, Chloride 108 H, Carbon Dioxide 25.0, Anion Gap 8, BUN 26 H, Creatinine 1.29, Est GFR (MDRD) Af Amer 69, Est GFR (MDRD) Non-Af 57 L, BUN/Creatinine Ratio 20.2 H, Glucose 127 H, Calcium 8.8 10/05/18 05:40: WBC 12.6 H, RBC 4.02 L, Hgb 10.6 L, Hct 32.9 L, MCV 81.8, MCH 26.4 L, MCHC 32.2, RDW 18.9 H, RDW Differential 56.4 H, Plt Count 159, MPV 10.6, Immature Gran % (Auto) 0.200, Neut % (Auto) 80.2 H, Lymph % (Auto) 10.9 L, [place] % (Auto) 8.4, Eos % (Auto) 0.2, Baso % (Auto) 0.1, Absolute Neuts (auto) 10.1 H , Total Counted Not Reportable Rhythm: EKG: Normal sinus rhythm with nonspecific ST changes Assessment/Plan 1. Dyspnea on exertion Patient presents with dyspnea and is noted to have a pulmonary embolism. He will need to be anticoagulated per usual protocol and would be on triple therapy. We need to be careful about GI bleeding. Echocardiogram should be performed to assess his left ventricular function. I suspect a mild troponin elevation in the natruretic peptide level is from right ventricular strain. 2. 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 No changes were made with the risk factor to his antianginal therapy. 3. 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 4. 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 5. Essential (primary) hypertension I10 Plan Patient's blood pressure is well-controlled. This is also been monitored during cardiac rehab and been well controlled most days. We will continue to monitor. We will not make any medication regimen changes. Orders 6. Hyperlipidemia, unspecified hyperlipidemia type E78.5 Plan He will continue with current statin medication. 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 Stent apposition confirmed with IVUS before and after stent deployment. 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 Echocardiogram from 05/10/2018: Interpretation Summary The left atrium is mildly enlarged. Normal LV size. Mild concentric left ventricular hypertrophy. Left ventricular systolic function is normal. The estimated ejection fraction is 65 %. Pulmonary artery systolic pressure is 38 mmHg. Contrast injection was performed. Stress test from 10/15/2017: Conclusion: Pharmacologic myocardial perfusion stress test with no significant ischemia noted. Previous basal inferior infarct is present. Minimal humaira-infarct ischemia cannot be completely excluded. Preserved ejection fraction.
--- NOTE | 2018-10-05 10:05 | EKG12_ITS ---
Test Reason : CP Blood Pressure : / mmHG Vent. Rate : 084 BPM Atrial Rate : 084 BPM P-R Int : 152 ms QRS Dur : 108 ms QT Int : 394 ms P-R-T Axes : 029 -51 -04 degrees QTc Int : 465 ms Sinus rhythm with Premature atrial complexes Incomplete right bundle branch block Left anterior fascicular block Moderate voltage criteria for LVH, may be normal variant Nonspecific ST and T wave abnormality Abnormal ECG When compared with ECG of 04-OCT-2018 11:32, MANUAL COMPARISON REQUIRED, DATA IS UNCONFIRMED Confirmed by TIFFANIE STERLING ([id number]), script editor KULWANT ZARCO ([id number]) on 10/08/2018 1:57:51 PM Referred By: SHADI Confirmed By:TIFFANIE STERLING
[2018-10-05] MEDS: Furosemide 40 MG/4 ML Vial IV (11:16)
[2018-10-05] MEDS: Metoprolol(XL)Succ 50 MG Tablet PO (11:16)
[2018-10-05] MEDS: Multivitamins,Ther W-Minerals Tablet 1 TABLET PO (11:17)
[2018-10-05] MEDS: TICAGRELOR 90 MG TABLET PO ×2 (11:17→21:47)
[2018-10-05] MEDS: Folic Acid 1 MG Tablet 0.5 MG PO (11:17)
[2018-10-05] MEDS: Magnesium Oxide 400 MG Tablet PO (11:17)
[2018-10-05] MEDS: Loratadine 10 MG Tablet PO (11:17)
[2018-10-05] MEDS: Isosorbide Mononitrate 60 MG Tablet PO (11:17)
[2018-10-05] MEDS: Aspirin 81 MG TAB.CHEW PO (11:18)
[2018-10-05] MEDS: Polyethylene Glycol 3350 17 GM PACKET PO (11:18)
--- NOTE | 2018-10-05 11:48 | CON.PCM_ITS ---
Problem List (1) Acute respiratory failure with hypoxia Status: Acute (2) Pulmonary embolism Status: Acute Qualifiers: Pulmonary embolism type: unspecified Chronicity: acute (3) NSTEMI (non-ST elevated myocardial infarction) Status: Acute (4) Essential (primary) hypertension Status: Chronic (5) Secondary pulmonary arterial hypertension Status: Chronic (6) H/O coronary artery bypass surgery Status: Resolved Comment: CABG X 5 vessels: CASTILLO to LAD,left radial artery to RCA, SVG to first snd second DX branches of the LAD and SVG to the lateral CX which had aberrant origin from the RCA 09/12/2000 (7) History of coronary artery stent placement Status: Resolved Comment: PTCA/EASTON Anomalous LCX off of RCA with a 2.25 x 24 Promus Synergy and PTCA/EASTON of distal RCA in stent plaque protrusion with possible non occlusive thrombus w/ 3.5 x 32 Promus Synergy05/19/18 PTCA/EASTON distal RCA with a 3.5 x 38 Promus Syergy and EASTON mid RCA with a 4.0 x 32 Promus Synergy Stent 05/13/18 EASTON-Prox LAD w/ 3.5 mm x 20 mm Promus Stent 08/27/12 [id number] & proximal RCA 06/21/2002 (8) Atherosclerotic heart disease of [place] coronary artery with other forms of angina pectoris Status: Chronic Comment: PTCA/EASTON Anomalous LCX off of RCA with a 2.25 x 24 Promus Synergy and PTCA/EASTON of distal RCA in stent plaque protrusion with possible non occlusive thrombus w/ 3.5 x 32 Promus Synergy05/19/18 PTCA/EASTON distal RCA with a 3.5 x 38 Promus Syergy and EASTON mid RCA with a 4.0 x 32 Promus Synergy Stent 05/13/18 EASTON-Prox LAD w/ 3.5 mm x 20 mm Promus Stent 08/27/12 [id number] & proximal RCA 06/21/2002 (9) Hyperlipidemia Status: Chronic Qualifiers: Hyperlipidemia type: unspecified Qualified Code(s): E78.5 - Hyperlipidemia, unspecified Reason for Consult Date of Consultation: 10/05/18 Reason for Consultation: Pulmonary embolism History of Present Illness: The patient is a 83 year old M, with past medical history listed below, who presented to [facility] on 10/04/2018 secondary to worsening shortness of breath. Patient reportedly has had worsening exertional dyspnea and pain of the chest on activity. Patient stated that this improved with rest and described the pain as achy. When EMS had arrived, patient was noted to have oxygen saturations in the 50s. Patient is not normally on supplemental oxygen. Patient does have a history of pulmonary embolism in the past approximately 5 years ago. On presentation to the ER, patient was noted to have diffuse rhonchi on exam, but no accessory muscle use. Patient was already on BiPAP therapy from EMS and appeared to have had improved respiratory status. Laboratory work-up showed a BUN of 20 with creatinine of 1.26. Troponin was mildly elevated at 0.127 and BNP was elevated at 955. Chest x-ray was unremarkable, but CT of the chest showed a large right-sided pulmonary embolism. Patient was placed on Lovenox therapy, Lasix and transferred to the PCU for further evaluation. Since being on the PCU, patient has been relatively dependent on BiPAP therapy. Patient reports his pain is somewhat improved. Patient's respiratory status is subjectively improved. Patient reports that he was on Coumadin in the past. Patient does report a cough producing thick brown sputum for the last 24 hours. No obvious bleeding such as hematuria, melena or hematochezia has been reported. Patient does report his right lower extremity has been more swollen than the left. Review of systems otherwise negative x10 systems. Patient somewhat frustrated secondary to BiPAP dependence. Past Medical History Past Medical History (Chronic Problems): Chronic Problems (Last Reviewed 06/05/18 @ 13:40 by Fito Alcala MD) Essential (primary) hypertension (Chronic) Secondary pulmonary arterial hypertension (Chronic) Atherosclerotic heart disease of [place] coronary artery with other forms of angina pectoris (Chronic) PTCA/EASTON Anomalous LCX off of RCA with a 2.25 x 24 Promus Synergy and PTCA/EASTON of distal RCA in stent plaque protrusion with possible non occlusive thrombus w/ 3.5 x 32 Promus Synergy05/19/18 PTCA/EASTON distal RCA with a 3.5 x 38 Promus Syergy and EASTON mid RCA with a 4.0 x 32 Promus Synergy Stent 05/13/18 EASTON-Prox LAD w/ 3.5 mm x 20 mm Promus Stent 08/27/12 [id number] & proximal RCA 06/21/2002 Hyperlipidemia (Chronic) Medical History: Medical History (Last Reviewed 06/05/18 @ 13:40 by Fito Alcala MD) NSTEMI (non-ST elevated myocardial infarction) (Acute) I21.4 Essential (primary) hypertension (Chronic) I10 Secondary pulmonary arterial hypertension (Chronic) I27.21 Atherosclerotic heart disease of [place] coronary artery with other forms of angina pectoris (Chronic) I25.118 PTCA/EASTON Anomalous LCX off of RCA with a 2.25 x 24 Promus Synergy and PTCA/EASTON of distal RCA in stent plaque protrusion with possible non occlusive thrombus w/ 3.5 x 32 Promus Synergy05/19/18 PTCA/EASTON distal RCA with a 3.5 x 38 Promus Syergy and EASTON mid RCA with a 4.0 x 32 Promus Synergy Stent 05/13/18 EASTON-Prox LAD w/ 3.5 mm x 20 mm Promus Stent 08/27/12 [id number] & proximal RCA 06/21/2002 Hyperlipidemia (Chronic) E78.5 CVA (cerebral vascular accident) I63.9 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 Pulmonary embolism I26.99 Right pulmonary embolus (Resolved) I26.99 Congestive heart failure (Inactive) I50.9 Systolic dysfunction Family history of hypertension (Inactive) Z82.49 custodial use of drug (Inactive) Z79.899 Precordial chest pain (Inactive) R07.2 Pulmonary hypertension (Inactive) 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 Allergies diazepam [From Valium] Allergy (Intermediate, Verified 10/04/18 11:24) Other HALLUCINATIONS morphine Allergy (Intermediate, Verified 10/04/18 11:24) Other TWITCHES Home Medications: Ambulatory Orders Medication Instructions Recorded Aspirin [Aspirin, Baby] 81 mg PO DAILY@0800 06/23/13 Metoprolol(XL)Succ [Toprol Xl 50 mg PO DAILY 06/23/13 (Beta Luis Felipe)] Cetirizine HCl [Zyrtec] 10 mg PO DAILY 03/25/15 Isosorbide Mononitrate [Isosorbide 60 mg PO DAILY 03/25/15 Mononitrate ER] Multivit-Min/FA/Lycopen/Lutein 1 ea PO DAILY 03/25/15 [Centrum Silver Tablet] atorvastatin 40 mg tablet 40 mg PO QHS tab 05/08/17 magnesium oxide 400 mg (241.3 mg 400 mg PO QDAY tab 05/08/17 magnesium) tablet furosemide 40 mg tablet 40 mg PO DAILY tab 12/05/17 tamsulosin 0.4 mg capsule 0.4 mg PO DAILY 30 Days #30 12/05/17 Folic Acid 0.4 mg PO DAILY@0800 05/10/18 Travoprost 0.004% [Travatan-Z 1 drop EACH EYE QHS 05/10/18 0.004% Eye Drop] Ticagrelor [Brilinta] 90 mg PO BID #180 tablet 05/14/18 Acetaminophen [Tylenol Tablet] 650 mg PO Q6H PRN PRN tablet 05/20/18 Hydrocodone/Acetaminophen [[place] 1 tab PO TID 10/04/18 5-325 Tablet] Lubiprostone [Amitiza] 24 mcg PO BID 10/04/18 Naproxen 500 mg PO BID 10/04/18 Surgical History: Surgical History (Last Reviewed 06/05/18 @ 13:40 by Fito Alcala MD) H/O coronary artery bypass surgery (Resolved) Onset Date: 09/12/00 Z95.1 CABG X 5 vessels: CASTILLO to LAD,left radial artery to RCA, SVG to first snd second DX branches of the LAD and SVG to the lateral CX which had aberrant origin from the RCA 09/12/2000 History of coronary artery stent placement (Resolved) Onset Date: 05/13/18 Z95.5 PTCA/EASTON Anomalous LCX off of RCA with a 2.25 x 24 Promus Synergy and PTCA/EASTON of distal RCA in stent plaque protrusion with possible non occlusive thrombus w/ 3.5 x 32 Promus Synergy05/19/18 PTCA/EASTON distal RCA with a 3.5 x 38 Promus Syergy and EASTON mid RCA with a 4.0 x 32 Promus Synergy Stent 05/13/18 EASTON-Prox LAD w/ 3.5 mm x 20 mm Promus Stent 08/27/12 [id number] & proximal RCA 06/21/2002 History of repair of hiatal hernia Z98.890, Z87.19 Surgical History: coronary bypass surgery, total hip arthroplasty, - - Hiatal hernia surgery. Psychiatric History: No pertinent psych hx Lives: Spouse/ Significant Other Alcohol: None Drugs: None - *Family History Maternal Family History: Family History (Last Reviewed 06/05/18 @ 13:40 by Fito Alcala MD) Father No problems noted. Mother Cancer Brother Throat cancer Brother COPD (chronic obstructive pulmonary disease) Brother No problems noted. Sister COPD (chronic obstructive pulmonary disease) Heart disease Sister COPD (chronic obstructive pulmonary disease) History Items: No pertinent history Paternal Family History: Family History (Last Reviewed 06/05/18 @ 13:40 by iFto Alcala MD) Father No problems noted. Mother Cancer Brother Throat cancer Brother COPD (chronic obstructive pulmonary disease) Brother No problems noted. Sister COPD (chronic obstructive pulmonary disease) Heart disease Sister COPD (chronic obstructive pulmonary disease) History Items: No pertinent history Review of Systems Comment: See HPI Patient Problems: Active and Suspected Problems (Last Reviewed 06/05/18 @ 13:40 by Fito Alcala MD) Acute respiratory failure with hypoxia (Acute) Pulmonary embolism (Acute) Objective: Echocardiogram shows EF of 65% with stage II diastolic dysfunction. Pulmonary artery systolic pressure of 82 mmHg noted. Left and right atrium are both mildly enlarged. CTA of the chest was personally reviewed and does show a large right-sided pulmonary emboli. Patient also has borderline bronchiectasis, right greater than left. - Physical Exam General: Alert, Oriented x3, Cooperative, - - Mild conversational dyspnea. Good BiPAP synchrony. HEENT: Atraumatic, PERRLA, EOMI, Normocephalic, - - No scleral icterus or injection noted. Oral: No Gingival or Mucosal Lesions/ Ulcerations, Dry Mucosa Neck: Supple, No Nodes, Trachea Midline, JVD, Right Lungs: No wheeze, No rales, Diminished, Rhonchi Cardiovascular: Regular rate, Regular Rhythm, Normal S1, Murmur - Grade 2 out of 6 diastolic ejection murmur at the left sternal border, No rub noted, No Gallop, - - Split S2 Abdomen: Bowel Sounds Present, Soft, Non Tender, Obese Extremities: No cyanosis, Clubbing - Stage II, Edema - Right lower extremity greater than left lower extremity Skin: No rashes, No breakdown, - - Venous stasis changes of bilateral lower extremities Musculoskeletal: No Tenderness to Palpation of Joints or Extremities Lymphatic: No Cervical, Supraclavicular, or Inguinal Adenopathy Neurological: Cranial nerves II-XII grossly intact, Neuro grossly intact, Motor Exam 5/5 strength throughout Psych/Mental Status: Appropriate, Flat Affect Vital Signs Temp Pulse Resp BP Pulse Ox 37.1 C 76 24 H 137/55 H 99 10/05/18 11:12 10/05/18 11:16 10/05/18 11:12 10/05/18 11:16 10/05/18 11:12 Oxygen Flow Rate (L/min) 6 Oxygen Delivery Method Bi-pap Weight: 97.2 kg Body Mass Index (BMI) 33.5 Intake and Output for Last 24 Hours 10/03/18 10/04/18 10/05/18 23:59 23:59 23:59 Intake Total 250 / 450 590 / 590 Output Total 400 / 400 200 / 200 Balance -150 / 50 390 / 390 Laboratory Tests Past 24 Hrs 10/04/18 10/04/18 10/04/18 11:37 12:45 12:45 WBC 10.5 RBC 4.12 L Hgb 11.2 L Hct 34.7 L MCV 84.2 MCH 27.2 MCHC 32.3 RDW 18.9 H RDW Differential 58.2 H Plt Count 162 MPV 10.4 Immature Gran % (Auto) 0.500 Neut % (Auto) 80.2 H Lymph % (Auto) 10.9 L [place] % (Auto) 7.7 Eos % (Auto) 0.5 Baso % (Auto) 0.2 Absolute Neuts (auto) 8.4 H Absolute Lymphs (auto) 1.14 Total Counted Not Reportable Differential Comment SCANNED Platelet Estimate ADEQUATE Polychromasia RARE Anisocytosis 1+ Specimen Type Sample Site pH Bicarbonate Actual POC Total CO2 Base Excess O2 Saturation O2 % ABG pCO2 ABG pO2 Pawel Test Respiration Rate O2 Delivery Device EPAP IPAP Blood Gas Notified Whom Blood Gas Notified Time Sodium 138 Potassium 4.5 Chloride 113 H Carbon Dioxide 19.0 L Anion Gap 6 BUN 20 H Creatinine 1.26 Estim Creat Clear Calc 42.26 Est GFR (MDRD) Af Amer 70 Est GFR (MDRD) Non-Af 58 L BUN/Creatinine Ratio 15.9 Glucose 132 H Calcium 8.9 Troponin I 0.129 H B-Natriuretic Peptide 955.2 H 10/04/18 10/04/18 10/04/18 17:04 17:30 19:36 WBC RBC Hgb Hct MCV MCH MCHC RDW RDW Differential Plt Count MPV Immature Gran % (Auto) Neut % (Auto) Lymph % (Auto) [place] % (Auto) Eos % (Auto) Baso % (Auto) Absolute Neuts (auto) Absolute Lymphs (auto) Total Counted Differential Comment Platelet Estimate Polychromasia Anisocytosis Specimen Type ART Sample Site L Radial pH 7.44 Bicarbonate Actual 21.7 L POC Total CO2 23 Base Excess -2 O2 Saturation 98 O2 % 45 ABG pCO2 31.8 L ABG pO2 106 H Pawel Test POS Respiration Rate 12 O2 Delivery Device Bi / C PAP EPAP 8 IPAP 14 Blood Gas Notified Whom HOSP Blood Gas Notified Time 1655 Sodium Potassium Chloride Carbon Dioxide Anion Gap BUN Creatinine Estim Creat Clear Calc Est GFR (MDRD) Af Amer Est GFR (MDRD) Non-Af BUN/Creatinine Ratio Glucose Calcium Troponin I 0.138 H 0.121 H B-Natriuretic Peptide 10/05/18 10/05/18 05:40 05:40 WBC 12.6 H RBC 4.02 L Hgb 10.6 L Hct 32.9 L MCV 81.8 MCH 26.4 L MCHC 32.2 RDW 18.9 H RDW Differential 56.4 H Plt Count 159 MPV 10.6 Immature Gran % (Auto) 0.200 Neut % (Auto) 80.2 H Lymph % (Auto) 10.9 L [place] % (Auto) 8.4 Eos % (Auto) 0.2 Baso % (Auto) 0.1 Absolute Neuts (auto) 10.1 H Absolute Lymphs (auto) 1.37 Total Counted Not Reportable Differential Comment Platelet Estimate Polychromasia Anisocytosis Specimen Type Sample Site pH Bicarbonate Actual POC Total CO2 Base Excess O2 Saturation O2 % ABG pCO2 ABG pO2 Pawel Test Respiration Rate O2 Delivery Device EPAP IPAP Blood Gas Notified Whom Blood Gas Notified Time Sodium 141 Potassium 3.9 Chloride 108 H Carbon Dioxide 25.0 Anion Gap 8 BUN 26 H Creatinine 1.29 Estim Creat Clear Calc 41.28 Est GFR (MDRD) Af Amer 69 Est GFR (MDRD) Non-Af 57 L BUN/Creatinine Ratio 20.2 H Glucose 127 H Calcium 8.8 Troponin I B-Natriuretic Peptide Clinical Impression(s) from Imaging Studies Chest X-Ray 10/04/18 11:37 IMPRESSION: Cardiomegaly. Electronically Signed: Bakari Faust DO at 12:57 EDT Tel [phone], Service support , Chest CTA 10/04/18 12:26 IMPRESSION: There is right-sided pulmonary embolism. No arterial dissection. Left pulmonary infiltrates. N.B. : The above information has been verbally conveyed by Bakari Faust DO to Sayra Hector MD, MD, on 10/04/2018 15:36:59 (ET). Electronically Signed: Bakari Faust DO at 15:19 EDT Tel [phone], Service support , Assessment/Plan All Active Problems (Last Reviewed 06/05/18 @ 13:40 by Fito Alcala MD) Acute respiratory failure with hypoxia (Acute) Pulmonary embolism (Acute) Dyspnea on exertion (Acute) LUQ abdominal pain (Acute) NSTEMI (non-ST elevated myocardial infarction) (Acute) 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 Continue anticoagulation and monitor for bleeding 2. Wean supplemental oxygen as tolerated 3. Keep saturations greater than 90% at all times 4. Agree with diuretic therapy 5. Walking oximetry prior to discharge 6. Consider outpatient complete PFT IMPRESSIONS: 1. Acute hypoxic respiratory failure secondary to submassive PE with cor pulmonale Patient was significantly elevated right-sided pressures noted on echocardiogram. This may be the etiology of slightly increased troponin and BNP given right ventricular strain. Patient's oxygenation will need to be controlled aggressively to keep saturations greater than 90% to avoid worsening of hypertension. Patient is appropriately on anticoagulant therapy. Wean oxygen as tolerated. Once patient is able to tolerate 30%, BiPAP breaks may be attempted with supplemental oxygen. Cannot exclude the need for long-term supplemental oxygen therapy. Would not recommend lower extremity Dopplers as this is not going to change plan of care. 2. Borderline bronchiectasis with left-sided infiltrates Unclear etiology. Patient may have an underlying pulmonary pathology that is not previously recognized. Patient should have outpatient pulmonary function testing. Left-sided infiltrates may be secondary to pulmonary infarct versus CHF associated with cor pulmonale. Likely hold on any inhaler therapy as tachycardia may exacerbate underlying diastolic dysfunction. 3. Chronic diastolic congestive heart failure/CAD status post CABG and stents/elevated troponin Complicated by cor pulmonale. Agree with diuretic therapy. Continue rate control with metoprolol. Patient recently had a stent in May 2018, so aspirin and Brilinta should be continued. Clinical suspicion for perfusion mismatch secondary to RV strain more than an acute ischemic event. 4. Advanced age/IBS/BPH/chronic pain syndrome/hypercholesterolemia/glaucoma Complicates care, management, recovery and prognosis. Okay to continue with baseline medications from my perspective. Code Visit Inpatient E&M: 87149 Init Hosp L3
--- NOTE | 2018-10-05 12:01 | PN_ITS ---
Patient Problems: Active and Suspected Problems (Last Reviewed 06/05/18 @ 13:40 by Fito Alcala MD) Acute respiratory failure with hypoxia (Acute) Pulmonary embolism (Acute) Subjective: Patient seen and examined. He was still on BiPAP at time of review. He still complained of shortness of breath and right-sided chest pain. He denies any palpitations or dizziness, cough, diarrhea vomiting. Review of symptoms otherwise negative. Labs and vitals reviewed. Vitals/I&O's: Vital Signs Temp Pulse Resp BP Pulse Ox 98.7 F 76 24 H 137/55 H 99 10/05/18 11:12 10/05/18 11:16 10/05/18 11:12 10/05/18 11:16 10/05/18 11:12 Oxygen Flow Rate (L/min) 6 Oxygen Delivery Method Bi-pap Weight: 214 lb 4.629 oz Body Mass Index (BMI) 33.5 Intake and Output for Last 24 Hours 10/03/18 10/04/18 10/05/18 23:59 23:59 23:59 Intake Total 250 / 450 590 / 590 Output Total 400 / 400 200 / 200 Balance -150 / 50 390 / 390 General: Alert, Oriented x3, Cooperative, No apparent distress HEENT: Atraumatic, PERRLA, EOMI, Normocephalic Oral: Moist Mucosa Neck: Supple, No JVD, Negative Carotid Bruits Lungs: Short of Breath, Tachypneic, Using Accessory Muscles, - - on BIPAP. Decreased breath sounds bibasally, with some crackles auscultated Cardiovascular: Regular rate, Regular Rhythm, Normal S1, Normal S2, No murmurs Abdomen: Bowel Sounds Present, Soft, Non Tender Extremities: No clubbing, No cyanosis, Capillary Refill Less than 3 Seconds, - - bilateral LE pitting edema Skin: No rashes, No breakdown Musculoskeletal: No Tenderness to Palpation of Joints or Extremities Lymphatic: No Cervical, Supraclavicular, or Inguinal Adenopathy Neurological: Cranial nerves II-XII grossly intact, Neuro grossly intact, Motor Exam 5/5 strength throughout Psych/Mental Status: Normal Affect, Appropriate, Alert and oriented to time, place, person, mood and affect Laboratory Results 10/04/18 11:37: Sodium 138, Potassium 4.5, Chloride 113 H, Carbon Dioxide 19.0 L , Anion Gap 6, BUN 20 H, Creatinine 1.26, Estim Creat Clear Calc 42.26, Est GFR (MDRD) Af Amer 70, Est GFR (MDRD) Non-Af 58 L, BUN/Creatinine Ratio 15.9, Glucose 132 H, Calcium 8.9, Troponin I 0.129 H 10/04/18 12:45: WBC 10.5, RBC 4.12 L, Hgb 11.2 L, Hct 34.7 L, MCV 84.2, MCH 27.2, MCHC 32.3, RDW 18.9 H, RDW Differential 58.2 H, Plt Count 162, MPV 10.4, Immature Gran % (Auto) 0.500, Neut % (Auto) 80.2 H, Lymph % (Auto) 10.9 L, [place] % (Auto) 7.7, Eos % (Auto) 0.5, Baso % (Auto) 0.2, Absolute Neuts (auto) 8.4 H, Absolute Lymphs (auto) 1.14, Total Counted Not Reportable, Differential Comment SCANNED, Platelet Estimate ADEQUATE, Polychromasia RARE, Anisocytosis 1+ 10/04/18 12:45: B-Natriuretic Peptide 955.2 H 10/04/18 17:04: Specimen Type ART, Sample Site L Radial, pH 7.44, Bicarbonate Actual 21.7 L, POC Total CO2 23, Base Excess -2, O2 Saturation 98, O2 % 45, ABG pCO2 31.8 L, ABG pO2 106 H, Pawel Test POS, Respiration Rate 12, O2 Delivery Device Bi / C PAP, EPAP 8, IPAP 14, Blood Gas Notified Whom BJ GARZON, Blood Gas Notified Time 9453 10/04/18 17:30: Troponin I 0.138 H 10/04/18 19:36: Troponin I 0.121 H 10/05/18 05:40: Sodium 141, Potassium 3.9, Chloride 108 H, Carbon Dioxide 25.0, Anion Gap 8, BUN 26 H, Creatinine 1.29, Estim Creat Clear Calc 41.28, Est GFR (MDRD) Af Amer 69, Est GFR (MDRD) Non-Af 57 L, BUN/Creatinine Ratio 20.2 H, Glucose 127 H, Calcium 8.8 10/05/18 05:40: WBC 12.6 H, RBC 4.02 L, Hgb 10.6 L, Hct 32.9 L, MCV 81.8, MCH 26.4 L, MCHC 32.2, RDW 18.9 H, RDW Differential 56.4 H, Plt Count 159, MPV 10.6, Immature Gran % (Auto) 0.200, Neut % (Auto) 80.2 H, Lymph % (Auto) 10.9 L, [place] % (Auto) 8.4, Eos % (Auto) 0.2, Baso % (Auto) 0.1, Absolute Neuts (auto) 10.1 H, Absolute Lymphs (auto) 1.37, Total Counted Not Reportable Diagnostic Data Chest X-Ray 10/04/18 11:37 IMPRESSION: Cardiomegaly. Electronically Signed: Bakari Faust DO at 12:57 EDT Tel [phone], Service support , Chest CTA 10/04/18 12:26 IMPRESSION: There is right-sided pulmonary embolism. No arterial dissection. Left pulmonary infiltrates. N.B. : The above information has been verbally conveyed by Bakari Faust DO to Sayra Hector MD, , on 10/04/2018 15:36:59 (ET). Electronically Signed: Bakari Faust DO at 15:19 EDT Tel [phone], Service support , Current Medications Acetaminophen (Tylenol) 650 mg PO Q6H PRN PRN PRN Reason: Mild Pain (0-2/10) Apixaban (Eliquis) 10 mg PO BID [facility] Aspirin (Aspirin, Baby) 81 mg PO DAILY@0800 [facility] Last Admin: 10/05/18 11:18 Dose: 81 mg Documented by: Atorvastatin Calcium (Lipitor) 40 mg PO QHS [facility] Last Admin: 10/04/18 23:33 Dose: 40 mg Documented by: Dextrose (D50w Syringe) 0 gm IV X1 PRN; Protocol PRN Reason: Hypoglycemia Folic Acid (Folic Acid) 0.5 mg PO DAILY@0800 [facility] Last Admin: 10/05/18 11:17 Dose: 0.5 mg Documented by: Furosemide (Lasix) 40 mg IV BID@1000,1800 [facility] Last Admin: 10/05/18 11:16 Dose: 40 mg Documented by: Glucagon () 1 mg IM .X1 PRN PRN Reason: Hypoglycemia Isosorbide Mononitrate (Imdur) 60 mg PO DAILY [facility] Last Admin: 10/05/18 11:17 Dose: 60 mg Documented by: Latanoprost (Xalatan Opthalmic) 1 drop EACH EYE QHS [facility] Last Admin: 10/04/18 23:33 Dose: 1 drop Documented by: Loratadine (Claritin) 10 mg PO DAILY [facility] Last Admin: 10/05/18 11:17 Dose: 10 mg Documented by: Magnesium Oxide (Mag-Ox 400) 400 mg PO DAILY [facility] Last Admin: 10/05/18 11:17 Dose: 400 mg Documented by: Metoprolol Succinate (Toprol Xl (Beta Luis Felipe)) 50 mg PO DAILY [facility] Last Admin: 10/05/18 11:16 Dose: 50 mg Documented by: Multivitamins/Minerals (Multivitamin With Minerals) 1 tablet PO DAILY@0800 [facility] Last Admin: 10/05/18 11:17 Dose: 1 tablet Documented by: Nutritional Formula (Lactose Free) (Ensure Enlive) 120 ml PO 4X/DAY [facility] Last Admin: 10/05/18 11:18 Dose: Not Given Documented by: Polyethylene Glycol (Miralax) 17 gm PO DAILY [facility] Last Admin: 10/05/18 11:18 Dose: 17 gm Documented by: Sodium Chloride () 10 - 40 ml IV UD PRN PRN Reason: SALINE FLUSH Last Admin: 10/04/18 18:51 Dose: 10 ml Documented by: Tamsulosin HCl (Flomax) 0.4 mg PO DAILY@1730 [facility] Last Admin: 10/04/18 18:50 Dose: 0.4 mg Documented by: Ticagrelor (Brilinta) 90 mg PO BID [facility] Last Admin: 10/05/18 11:17 Dose: 90 mg Documented by: Assessment/Plan All Active Problems (Last Reviewed 06/05/18 @ 13:40 by Fito Alcala MD) Acute respiratory failure with hypoxia (Acute) Pulmonary embolism (Acute) Dyspnea on exertion (Acute) LUQ abdominal pain (Acute) NSTEMI (non-ST elevated myocardial infarction) (Acute) H/O coronary artery bypass surgery (Resolved 09/12/00) History of coronary artery stent placement (Resolved 05/13/18) Cellulitis (Resolved) Cellulitis and abscess of left lower extremity (Resolved) Chest pain (Resolved) Right pulmonary embolus (Resolved) 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 (Resolved) 83 y/o male admitted with a complaint of SOB and chest pain 1. Acute hypoxic respiratory failure due to right sided submassive PE * still on BIPAP * on lovenox-therapeutic dose * CTA lungs showed right sided PE * BNP nad troponin were also elevated on admission, likely due to cardiac strain from PE * pulmonology and cardiology on board * to wean off BIPAP and transition to intranasal oxygen as tolerated * 2D echo: Normal left ventricular size with moderate concentric left ventricular hypertrophy and normal systolic function. EF of 65% in stage II diastolic dysfunction. Left atrium and right atrium mildly enlarged. PA systolic pressure is 82mmhg. * will likely need anticoagulation for life * continue breathing treatments * * 2. Right-sided submassive PE:as under 1. 3. Acute on chronic exacerbation of heart failure with preserved ejection fraction: * EF is 65% from 2D echo, with stage 2 diastolic dysfunction * on IV lasix 40mg bid * Output over the last 24 hours is just about 600 mils. * Monitor intake output and fluid restriction 1500 cc daily. On metoprolol. Continue. * Hold p.o. Lasix. Start IV Lasix 40 mg twice daily. * Monitor input and output. * Fluid restriction to 1500 cc daily. * Continue metoprolol * 4. Severe pulmonary hypertension * RVSP per echo was 82mmHg. Likely due to right sided PE * as under 1. * pulmonology on board * 5. CAD status post CABG and stent: * Had drug-eluting stent placed in the RCA in May 2018 for NSTEMI. S dominguezsequently had restenosis of recently placed stent. Currently on aspirin and Brilinta. * Due to drug-eluting stent being placed just about 5 months ago, will continue dual antiplatelets due to risk of in-stent stenosis. * Patient counseled that he is at risk of bleeding as he is on dual antiplatelet plus anticoagulant now. * on statin 6. Elevated troponin: * EKG showed no acute ST changes. * initial troponin was 0.129->0.138->0.121 * likely due to cardiac strain from PE * cardiology on board * continue aspirin and brilinta * * 7. IBS: On lubiprostone at home. 8. BPH: on flomax DVT prophylaxis: Not indicated as patient has acute PE Code Visit Inpatient E&M: 66370 Subs Hosp L3
[2018-10-05] MEDS: Acetaminophen 325 MG Tablet 650 MG PO (13:16)
--- NOTE | 2018-10-05 13:25 | CASEMGMT ---
HOOD DURON assessment: Face to Face with patient for initial transition planning/care coordination assessment. HOOD DURON introduced self and role at [facility], pt voices understanding and consents to assessment at this time. Pt is sitting up in bed with labored breathing at this time and pt is has been off/on bipap. Jessica RN at bedside during assessment to monitor pt on 10liters nc at this time. Pt is A/Ox4 at this time and answers all questions appropriately at this time. Pt's present for part of assessment. Care providers, pharmacy, and demographics verified at this time. PCP: Ashley Specialists: Fredrick, cardio Preferred Pharmacy: [facility] Insurance: [facility] A/B Prescription Benefit: Yes Living Will/HPOA: Pt states does not have LW/HPOA and declines need for info at this time. LNOK: ; Teodoro Kim, son; Jose Martin Kim, son Living Arrangements: Pt states lives with in 1 story home and states no concerns at home at this time. Pt states was independent with ADL's but was getting 'weaker' the last couple weeks. Transportation: Pt states drives self and states no transportation concerns at this time. DME/HHC: Pt states has only cpap but has not been using it 'like I should.' Pt states that he gets it thru a company out of [place]. Pt states no need for any further DME at this time. Pt states no hx of SNF or HHC in the past. Pt states some concerns with going home at time of discharge d/t breathing and weakness. Pt states is retired. Pt states does not smoke or drink ETOH. Pt states no further concerns/needs at this time. CM to follow for PT/OT eval, home oxygen need, and for any further discharge planning/needs. Advised pt/ to ask for CM if any further questions/concerns/needs arise, voice understanding. Pt Goal: Home Plan: TBD [place] HO[facility] DURON
[2018-10-05] MEDS: Tamsulosin HCl 0.4 MG Capsule PO (17:12)
[2018-10-05] MEDS: APIXABAN 5 MG TABLET 10 MG PO (17:12)
[2018-10-05] MEDS: Latanoprost 0.005% 1 Bottle 1 DRP EACH EYE (21:47)
[2018-10-05] MEDS: Atorvastatin Calcium 40 MG Tablet PO (21:47)
[2018-10-05] MEDS: NON-FORMULARY 1 PO (23:34)
[2018-10-06] VITALS (21 sets, daily range): BP systolic 102–124; BP diastolic 49–62; PULSE 66–86; RESP 12–26; TEMP 36.6–37.3; O2SAT 92–100
--- NOTE | 2018-10-06 08:23 | PCM.PN.PUL ---
Patient Problems: Active and Suspected Problems (Last Reviewed 06/05/18 @ 13:40 by Fito Alcala MD) Acute respiratory failure with hypoxia (Acute) Pulmonary embolism (Acute) Subjective: Patient did okay overnight. Patient still requiring BiPAP for most of the time, but was able to be on 10 L nasal cannula for short period of time. Patient has reported some hemoptysis, but describes this is mild bright streaks. Patient is denying any pain. - Physical Exam General: Alert, Cooperative, No apparent distress, - - Good BiPAP synchrony. HEENT: Atraumatic, PERRLA, EOMI, Normocephalic, - - Slight scleral injection Oral: No Gingival or Mucosal Lesions/ Ulcerations, Dry Mucosa Neck: Supple, No Nodes, Trachea Midline, JVD, Right Lungs: Clear to auscultation, Normal air movement, No rhonchi, No wheeze, No rales Cardiovascular: Regular rate, Regular Rhythm, Normal S1, Normal S2, Murmur, No rub noted, No Gallop Abdomen: Bowel Sounds Present, Soft, Non Tender, Non-Distended, Obese Extremities: No cyanosis, Clubbing, Edema - Much improved compared to previous Skin: - - No significant change compared to previous Musculoskeletal: No Tenderness to Palpation of Joints or Extremities Lymphatic: No Cervical, Supraclavicular, or Inguinal Adenopathy Neurological: Cranial nerves II-XII grossly intact, Neuro grossly intact, Motor Exam 5/5 strength throughout Psych/Mental Status: Normal Affect, Appropriate Vital Signs Temp Pulse Resp BP Pulse Ox 36.7 C 66 24 H 121/62 H 99 10/06/18 04:15 10/06/18 07:37 10/06/18 04:15 10/06/18 04:15 10/06/18 04:15 Oxygen Flow Rate (L/min) 10 Oxygen Delivery Method Bi-pap Weight: 98.9 kg Body Mass Index (BMI) 33.5 Intake and Output for Last 24 Hours 10/04/18 10/05/18 10/06/18 23:59 23:59 23:59 Intake Total 250 / 450 830 / 950 180 / 180 Output Total 400 / 400 750 / 750 Balance -150 / 50 80 / 200 180 / 180 Assessment/Plan All Active Problems (Last Reviewed 06/05/18 @ 13:40 by Fito Alcala MD) Acute respiratory failure with hypoxia (Acute) Pulmonary embolism (Acute) Dyspnea on exertion (Acute) LUQ abdominal pain (Acute) NSTEMI (non-ST elevated myocardial infarction) (Acute) 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 Continue anticoagulation and monitor for increased bleeding 2. Wean supplemental oxygen as tolerated 3. Keep saturations greater than 90% at all times 4. Agree with diuretic therapy 5. Walking oximetry prior to discharge 6. Consider outpatient complete PFT IMPRESSIONS: 1. Acute hypoxic respiratory failure secondary to submassive PE with cor pulmonale Patient was significantly elevated right-sided pressures noted on echocardiogram. This may be the etiology of slightly increased troponin and BNP given right ventricular strain. Patient's oxygenation will need to be controlled aggressively to keep saturations greater than 90% to avoid worsening of hypertension. Patient is having some mild hemoptysis at this time, but this would likely be tolerated given pulmonary artery pressures. Patient has had some improvement in right lower extremity edema, so repeat clot migration cannot be excluded. Patient's blood pressure appears to be tolerating well. Continue with BiPAP breaks as tolerated. Repeat hemoglobin is currently pending. 2. Borderline bronchiectasis with left-sided infiltrates Unclear etiology. Patient may have an underlying pulmonary pathology that is not previously recognized. Patient should have outpatient pulmonary function testing. Left-sided infiltrates may be secondary to pulmonary infarct versus CHF associated with cor pulmonale. Likely hold on any inhaler therapy as tachycardia may exacerbate underlying diastolic dysfunction. 3. Chronic diastolic congestive heart failure/CAD status post CABG and stents/elevated troponin Complicated by cor pulmonale. Agree with intermittent diuretic therapy. Continue rate control with metoprolol. Patient recently had a stent in May 2018, so aspirin and Brilinta should be continued. Clinical suspicion for perfusion mismatch secondary to RV strain more than an acute ischemic event. Patient will need a repeat echocardiogram in the future. 4. Advanced age/IBS/BPH/chronic pain syndrome/hypercholesterolemia/glaucoma Complicates care, management, recovery and prognosis. Okay to continue with baseline medications from my perspective. Code Visit Inpatient E&M: 10659 Subs Hosp L3
[2018-10-06 08:39] LABS: Absolute Lymphocyte Count 1.62 X10^3/ul (0.83-4.51); Basophil# 0.02 X10^3/uL; Basophil% 0.2 % (0-1); Eosinophil# 0.16 X10^3/uL; Eosinophils% 1.5 % (0-5); Hematocrit 30.8 % (40-54); Hemoglobin 9.9 g/dl (13.0-16.5); Lymphocyte # 1.62 X10^3/ul (4.0); Lymphocyte % 15.1 % (19-41); Mean Corp Hgb Conc 32.1 g/gl (32-36); Mean Corpuscular Hgb 26.6 pg (27.0-32.0); Mean Corpuscular Volume 82.8 fL (80-94); Mean Platelet Vol. 10.7 fl (6.2-12.0); Monocyte% 8.4 % (0-10); Neutrophil # 7.97 X10^3/uL (2.7-7.7); Neutrophil % 74.5 % (47-70); Platelet Count 153 K/mm3 (150-450); RBC Distribution Width CV 18.9 % (11.6-14.6); RBC Distribution Width SD 57.7 fl (35.1-43.9); Red Blood Count 3.72 M/mm3 (4.6-6.2); White Blood Count 10.7 K/mm3 (4.4-11.0)
[2018-10-06] MEDS: Folic Acid 1 MG Tablet 0.5 MG PO (08:40)
[2018-10-06] MEDS: Multivitamins,Ther W-Minerals Tablet 1 TABLET PO (08:40)
[2018-10-06] MEDS: TICAGRELOR 90 MG TABLET PO ×2 (08:40→21:04)
[2018-10-06] MEDS: APIXABAN 5 MG TABLET 10 MG PO ×2 (08:41→21:04)
[2018-10-06] MEDS: Loratadine 10 MG Tablet PO (08:41)
[2018-10-06] MEDS: Aspirin 81 MG TAB.CHEW PO (08:41)
[2018-10-06] MEDS: Magnesium Oxide 400 MG Tablet PO (08:42)
[2018-10-06] MEDS: Isosorbide Mononitrate 60 MG Tablet PO (08:42)
[2018-10-06] MEDS: Furosemide 40 MG/4 ML Vial IV ×2 (08:43→18:46)
[2018-10-06] MEDS: Metoprolol(XL)Succ 50 MG Tablet PO (08:43)
[2018-10-06 08:47] LABS: POSITIVE COUNT NO; POSITIVE DIFFERENTIAL NO; POSITIVE MORPHOLOGY NO
[2018-10-06] MEDS: Polyethylene Glycol 3350 17 GM PACKET PO (08:47)
[2018-10-06 09:00] LABS: Anion Gap 9 (5-15); BUN 34 mg/dL (7-18); BUN/Creat Ratio 25.2 RATIO (10-20); Calcium,Total 8.6 mg/dL (8.5-10.1); Chloride 107 mmol/L (98-107); Creatinine, Serum 1.35 mg/dL (0.70-1.30); EST Glomerular Filtration Rate 54 mL/min (>60); Est Glom Filt Rate - Afr Amer 65 mL/min (>60); Estimated Creatinine Clearance 39.44 ml/min; Glucose 110 mg/dL (74-106); Potassium 3.9 mmol/L (3.5-5.1); Sodium Level 142 mmol/L (136-145)
--- NOTE | 2018-10-06 09:20 | PN.CARD_ITS ---
Subjectve: Patient seen and evaluated. Appears to be doing better. Has had some coughing with mild hemoptysis. Objective: Vital Signs Temp Pulse Resp BP Pulse Ox 99.1 F 69 19 H 118/56 L 99 10/06/18 08:31 10/06/18 08:43 10/06/18 08:31 10/06/18 08:31 10/06/18 08:31 Oxygen Flow Rate (L/min) 10 Oxygen Delivery Method Bi-pap Weight: 218 lb 0.595 oz Body Mass Index (BMI) 33.5 Intake and Output for Last 24 Hours 10/04/18 10/05/18 10/06/18 23:59 23:59 23:59 Intake Total 250 / 450 830 / 950 180 / 180 Output Total 400 / 400 750 / 750 Balance -150 / 50 80 / 200 180 / 180 General: Awake, Alert, Oriented x 3 HEENT: PERRL, EOMI, Sclera Non Icteric Neck: Supple, Good ROM, No Lymph Node Enlargement Lungs: Clear to auscultation Cardiovascular: Regular Rhythm, Normal S1, Normal S2, No Murmurs, No Rubs, No Gallops Vascular: No Carotid Bruits, Normal Femoral Pulses, Normal Radial Pulses, Normal Dorsalis Pedal Pulse, Normal Posterior Tibial Pulses Abdomen: Bowel Sounds Present, Soft, Non Tender, No HSM, No Organomegaly Extremities: No Cyanosis, No Clubbing, No edema Musculoskeletal: No Erythema Skin: No Rashes Lymphatic: No Lymph Node Enlargement Neurological: No Focal Motor or Sensory Deficit Psych/Mental Status: Appropriate 10/06/18 08:10: WBC 10.7, RBC 3.72 L, Hgb 9.9 L, Hct 30.8 L, MCV 82.8, MCH 26.6 L, MCHC 32.1, RDW 18.9 H, RDW Differential 57.7 H, Plt Count 153, MPV 10.7, Immature Gran % (Auto) 0.300, Neut % (Auto) 74.5 H, Lymph % (Auto) 15.1 L, Whitley % (Auto) 8.4, Eos % (Auto) 1.5, Baso % (Auto) 0.2, Absolute Neuts (auto) 8.0 H, Total Counted Not Reportable 10/06/18 08:10: Sodium 142, Potassium 3.9, Chloride 107, Carbon Dioxide 26.0, Anion Gap 9, BUN 34 H, Creatinine 1.35 H, Est GFR (MDRD) Af Amer 65, Est GFR (MDRD) Non-Af 54 L, BUN/Creatinine Ratio 25.2 H, Glucose 110 H, Calcium 8.6 Rhythm: EKG: ECHO: Stress Test: Cardiac Cath: PCI: CT Surgery: Holter monitor: EPS: PPM: CXR: Chest CT Scan: Assessment/Plan 1. Dyspnea on exertion Patient presents with dyspnea and is noted to have a pulmonary embolism. He will need to be anticoagulated per usual protocol and would be on triple therapy. We need to be careful about GI bleeding. Echocardiogram demonstrated significant elevation in right ventricular pressures and this is likely responsible for the increased troponin as well as the natruretic peptide level. Patient has been started on appropriate anticoagulation. We will continue to follow. 2. 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 No changes were made with the risk factor to his antianginal therapy. 3. History of coronary artery stent placement Z95.5 PTCA/EASTON Anomalous LCX off of RCA with a 2.25 x 24 Promus Synergy and PTCA/EASTON of distal RCA in stent plaque protrusion with possible non occlusive thrombus w/ 3.5 x 32 Promus Synergy05/19/18 PTCA/EASTON distal RCA with a 3.5 x 38 Promus Syergy and EASTON mid RCA with a 4.0 x 32 Promus Synergy Stent 05/13/18 EASTON-Prox LAD w/ 3.5 mm x 20 mm Promus Stent 08/27/12 [id number] & proximal RCA 06/21/2002 He will continue the current treatment plan as outlined above. 4. 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 5. Essential (primary) hypertension I10 Plan Patient's blood pressure is well-controlled. This is also been monitored during cardiac rehab and been well controlled most days. We will continue to monitor. We will not make any medication regimen changes. Orders 6. Hyperlipidemia, unspecified hyperlipidemia type E78.5 Plan He will continue with current statin medication. 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 Stent apposition confirmed with IVUS before and after stent deployment. 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 Echocardiogram from 05/10/2018: Interpretation Summary The left atrium is mildly enlarged. Normal LV size. Mild concentric left ventricular hypertrophy. Left ventricular systolic function is normal. The estimated ejection fraction is 65 %. Pulmonary artery systolic pressure is 38 mmHg. Contrast injection was performed. Stress test from 10/15/2017: Conclusion: Pharmacologic myocardial perfusion stress test with no significant ischemia noted. Previous basal inferior infarct is present. Minimal humaira-infarct ischemia cannot be completely excluded. Preserved ejection fraction.
[2018-10-06] MEDS: Acetaminophen 325 MG Tablet 650 MG PO (11:21)
--- NOTE | 2018-10-06 11:48 | PN_ITS ---
Patient Problems: Active and Suspected Problems (Last Reviewed 06/05/18 @ 13:40 by Fito Alcala MD) Acute respiratory failure with hypoxia (Acute) Pulmonary embolism (Acute) Subjective: Patient seen and examined. He complains of coughing and bringing up streaks of blood. He still remains short of breath and is on BiPAP. He denies any chest pain or palpitations, dizziness, diarrhea or vomiting. Review of systems otherwise negative. Labs and vitals reviewed. Vitals/I&O's: Vital Signs Temp Pulse Resp BP Pulse Ox 99.1 F 69 19 H 118/56 L 99 10/06/18 08:31 10/06/18 08:43 10/06/18 08:31 10/06/18 08:31 10/06/18 08:31 Oxygen Flow Rate (L/min) 10 Oxygen Delivery Method Bi-pap Weight: 218 lb 0.595 oz Body Mass Index (BMI) 33.5 Intake and Output for Last 24 Hours 10/04/18 10/05/18 10/06/18 23:59 23:59 23:59 Intake Total 250 / 450 830 / 950 755 / 755 Output Total 400 / 400 750 / 750 200 / 200 Balance -150 / 50 80 / 200 555 / 555 General: Alert, Oriented x3, Cooperative, No apparent distress HEENT: Atraumatic, PERRLA, EOMI, Normocephalic Oral: Moist Mucosa Neck: Supple, No JVD, Negative Carotid Bruits Lungs: Short of Breath, Tachypneic, Using Accessory Muscles, - - on BIPAP. Decreased breath sounds bibasally Cardiovascular: Regular rate, Regular Rhythm, Normal S1, Normal S2, No murmurs Abdomen: Bowel Sounds Present, Soft, Non Tender Extremities: No clubbing, No cyanosis, Capillary Refill Less than 3 Seconds, - - bilateral LE pitting edema, greater on right than left Skin: No rashes, No breakdown Musculoskeletal: No Tenderness to Palpation of Joints or Extremities Lymphatic: No Cervical, Supraclavicular, or Inguinal Adenopathy Neurological: Cranial nerves II-XII grossly intact, Neuro grossly intact, Motor Exam 5/5 strength throughout Psych/Mental Status: Normal Affect, Appropriate, Alert and oriented to time, place, person, mood and affect Laboratory Results 10/06/18 08:10: WBC 10.7, RBC 3.72 L, Hgb 9.9 L, Hct 30.8 L, MCV 82.8, MCH 26.6 L, MCHC 32.1, RDW 18.9 H, RDW Differential 57.7 H, Plt Count 153, MPV 10.7, Immature Gran % (Auto) 0.300, Neut % (Auto) 74.5 H, Lymph % (Auto) 15.1 L, [place] % (Auto) 8.4, Eos % (Auto) 1.5, Baso % (Auto) 0.2, Absolute Neuts (auto) 8.0 H, Absolute Lymphs (auto) 1.62, Total Counted Not Reportable 10/06/18 08:10: Sodium 142, Potassium 3.9, Chloride 107, Carbon Dioxide 26.0, Anion Gap 9, BUN 34 H, Creatinine 1.35 H, Estim Creat Clear Calc 39.44, Est GFR (MDRD) Af Amer 65, Est GFR (MDRD) Non-Af 54 L, BUN/Creatinine Ratio 25.2 H, Glucose 110 H, Calcium 8.6 Diagnostic Data Chest X-Ray 10/04/18 11:37 IMPRESSION: Cardiomegaly. Electronically Signed: Bakari Faust DO at 12:57 EDT Tel [phone], Service support , Chest CTA 10/04/18 12:26 IMPRESSION: There is right-sided pulmonary embolism. No arterial dissection. Left pulmonary infiltrates. N.B. : The above information has been verbally conveyed by Bakari Faust DO to Sayra Hector MD, MD, on 10/04/2018 15:36:59 (ET). Electronically Signed: Bakari Faust DO at 15:19 EDT Tel [phone], Service support , Current Medications Acetaminophen (Tylenol) 650 mg PO Q6H PRN PRN PRN Reason: Mild Pain (0-2/10) Last Admin: 10/06/18 11:21 Dose: 650 mg Documented by: Apixaban (Eliquis) 10 mg PO BID JUAN Last Admin: 10/06/18 08:41 Dose: 10 mg Documented by: Aspirin (Aspirin, Baby) 81 mg PO DAILY@0800 [facility] Last Admin: 10/06/18 08:41 Dose: 81 mg Documented by: Atorvastatin Calcium (Lipitor) 40 mg PO QHS [facility] Last Admin: 10/05/18 21:47 Dose: 40 mg Documented by: Dextrose (D50w Syringe) 0 gm IV X1 PRN; Protocol PRN Reason: Hypoglycemia Folic Acid (Folic Acid) 0.5 mg PO DAILY@0800 [facility] Last Admin: 10/06/18 08:40 Dose: 0.5 mg Documented by: Furosemide (Lasix) 40 mg IV BID@1000,1800 [facility] Last Admin: 10/06/18 08:43 Dose: 40 mg Documented by: Glucagon () 1 mg IM .X1 PRN PRN Reason: Hypoglycemia Isosorbide Mononitrate (Imdur) 60 mg PO DAILY [facility] Last Admin: 10/06/18 08:42 Dose: 60 mg Documented by: Latanoprost (Xalatan Opthalmic) 1 drop EACH EYE QHS [facility] Last Admin: 10/05/18 21:47 Dose: 1 drop Documented by: Loratadine (Claritin) 10 mg PO DAILY [facility] Last Admin: 10/06/18 08:41 Dose: 10 mg Documented by: Magnesium Oxide (Mag-Ox 400) 400 mg PO DAILY [facility] Last Admin: 10/06/18 08:42 Dose: 400 mg Documented by: Metoprolol Succinate (Toprol Xl (Beta Luis Felipe)) 50 mg PO DAILY [facility] Last Admin: 10/06/18 08:43 Dose: 50 mg Documented by: Multivitamins/Minerals (Multivitamin With Minerals) 1 tablet PO DAILY@0800 [facility] Last Admin: 10/06/18 08:40 Dose: 1 tablet Documented by: Nutritional Formula (Lactose Free) (Ensure Enlive) 120 ml PO 4X/DAY [facility] Last Admin: 10/06/18 08:38 Dose: 120 ml Documented by: Oxycodone HCl (Oxyir) 5 mg PO X1 ONE Stop: 10/06/18 11:48 Polyethylene Glycol (Miralax) 17 gm PO DAILY [facility] Last Admin: 10/06/18 08:47 Dose: 17 gm Documented by: Sodium Chloride () 10 - 40 ml IV UD PRN PRN Reason: SALINE FLUSH Last Admin: 10/04/18 18:51 Dose: 10 ml Documented by: Tamsulosin HCl (Flomax) 0.4 mg PO DAILY@1730 [facility] Last Admin: 10/05/18 17:12 Dose: 0.4 mg Documented by: Ticagrelor (Brilinta) 90 mg PO BID [facility] Last Admin: 10/06/18 08:40 Dose: 90 mg Documented by: Assessment/Plan All Active Problems (Last Reviewed 06/05/18 @ 13:40 by Fito Alcala MD) Acute respiratory failure with hypoxia (Acute) Pulmonary embolism (Acute) Dyspnea on exertion (Acute) LUQ abdominal pain (Acute) NSTEMI (non-ST elevated myocardial infarction) (Acute) H/O coronary artery bypass surgery (Resolved 09/12/00) History of coronary artery stent placement (Resolved 05/13/18) Cellulitis (Resolved) Cellulitis and abscess of left lower extremity (Resolved) Chest pain (Resolved) Right pulmonary embolus (Resolved) 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 (Resolved) 83 y/o male admitted with a complaint of SOB and chest pain 1. Acute hypoxic respiratory failure due to right sided submassive PE * still on BIPAP with intermittent oxygen by nasal canula. Required up to 10L of oxygen * on PO eliquis 10mg bid * 2D echo: Normal left ventricular size with moderate concentric left ventricular hypertrophy and normal systolic function. EF of 65% in stage II diastolic dysfunction. Left atrium and right atrium mildly enlarged. PA systolic pressure is 82mmhg. * will likely need anticoagulation for life * continue breathing treatments * cardiology and pulmonology on board * 2. Right-sided submassive PE:as under 1. 3. Acute on chronic exacerbation of heart failure with preserved ejection fraction: * EF is 65% from 2D echo, with stage 2 diastolic dysfunction * on IV lasix 40mg bid * Fluid restriction to 1500 cc daily. * Continue metoprolol * 4. Severe pulmonary hypertension and cor pulmonale * RVSP per echo was 82mmHg. Likely due to right sided PE * as under 1. * pulmonology on board * on BIPAP; to transition to oxygen by nasal canula if patient can tolerate. * 5. CAD status post CABG and stent: * Had drug-eluting stent placed in the RCA in May 2018 for NSTEMI. Subsequently had restenosis of recently placed stent. Currently on aspirin and Brilinta. * Due to drug-eluting stent being placed just about 5 months ago, will continue dual antiplatelets due to risk of in-stent stenosis. * Patient counseled that he is at higher risk of bleeding as he is on dual antiplatelet plus eliquis. * on statin 6. Elevated troponin: * EKG showed no acute ST changes. * initial troponin was 0.129->0.138->0.121 * likely due to cardiac strain from PE * cardiology on board * continue aspirin and brilinta and eliquis * 7. IBS: On lubiprostone. Stable 8. BPH: on flomax DVT prophylaxis: Not indicated as patient has acute PE Code Visit Inpatient E&M: 65775 Subs Hosp L3
[2018-10-06] MEDS: oxyCODONE 5 MG Tablet PO (12:15)
--- NOTE | 2018-10-06 15:06 | CASEMGMT ---
Patient did not do well with therapy. SW spoke with patient about going to a fdc short term for rehab before going home. He said he probably will have to as he is pretty weak. SW spoke with patient and his about facilities and they agreed to have SW call TCU and put his name on the list. Plan: Possibly [facility] TCU when ready. Latricia JNO MSW
[2018-10-06] MEDS: Tamsulosin HCl 0.4 MG Capsule PO (18:44)
--- NOTE | 2018-10-06 19:20 | EKG12_ITS ---
Test Reason : CP Blood Pressure : / mmHG Vent. Rate : 082 BPM Atrial Rate : 082 BPM P-R Int : 148 ms QRS Dur : 104 ms QT Int : 388 ms P-R-T Axes : 028 -59 023 degrees QTc Int : 453 ms Normal sinus rhythm Incomplete right bundle branch block Left anterior fascicular block Minimal voltage criteria for LVH, may be normal variant Nonspecific ST abnormality Abnormal ECG When compared with ECG of 05-OCT-2018 10:27, MANUAL COMPARISON REQUIRED, DATA IS UNCONFIRMED Confirmed by TIFFANIE STERLING ([id number]), supervising editor news reel KULWANT ZARCO ([id number]) on 10/08/2018 2:05:23 PM Referred By: SHADI Confirmed By:TIFFANIE STERLING
--- NOTE | 2018-10-06 20:19 | CPS ---
PATIENT WAS 85% ON 8 LPM HIGH FLOW NC. PATIENT PLACED BACK ON BIPAP DUE TO SOB. PATIENTS NURSE AWARE.
[2018-10-06] MEDS: Atorvastatin Calcium 40 MG Tablet PO (21:04)
[2018-10-06] MEDS: Latanoprost 0.005% 1 Bottle 1 DRP EACH EYE (21:05)
[2018-10-07] VITALS (17 sets, daily range): BP systolic 111–134; BP diastolic 59–70; PULSE 61–87; RESP 12–27; TEMP 36.7–37; O2SAT 92–98
[2018-10-07] MEDS: Aspirin 81 MG TAB.CHEW PO (08:36)
[2018-10-07] MEDS: Loratadine 10 MG Tablet PO (08:37)
[2018-10-07] MEDS: Folic Acid 1 MG Tablet 0.5 MG PO (08:37)
[2018-10-07] MEDS: TICAGRELOR 90 MG TABLET PO ×2 (08:37→21:16)
[2018-10-07] MEDS: Multivitamins,Ther W-Minerals Tablet 1 TABLET PO (08:37)
[2018-10-07] MEDS: Polyethylene Glycol 3350 17 GM PACKET PO (08:38)
[2018-10-07] MEDS: Isosorbide Mononitrate 60 MG Tablet PO (08:38)
[2018-10-07] MEDS: Magnesium Oxide 400 MG Tablet PO (08:38)
[2018-10-07] MEDS: Furosemide 40 MG/4 ML Vial IV ×2 (08:38→17:12)
[2018-10-07] MEDS: APIXABAN 5 MG TABLET 10 MG PO ×2 (08:38→21:16)
[2018-10-07] MEDS: Metoprolol(XL)Succ 50 MG Tablet PO (08:39)
[2018-10-07] MEDS: 0.9% NaCl Peripheral Flush Adult/Peds IV ×2 (08:46→11:05)
--- NOTE | 2018-10-07 09:48 | PCM.PN.PUL ---
Patient Problems: Active and Suspected Problems (Last Reviewed 06/05/18 @ 13:40 by Fito Alcala MD) Acute respiratory failure with hypoxia (Acute) Pulmonary embolism (Acute) Subjective: Patient did okay overnight. No acute issues were reported. Patient was off of BiPAP therapy on my evaluation. Patient was able to produce sputum and dried blood was noted. No bright red blood was noted. Patient overall feels subjectively unchanged compared to previous. No fevers have been noted overnight. - Physical Exam General: Alert, Oriented x3, Cooperative, No apparent distress, - - Mild conversational dyspnea noted. HEENT: Atraumatic, PERRLA, EOMI, Normocephalic Oral: Moist Mucosa, No Gingival or Mucosal Lesions/ Ulcerations Neck: Supple, No Nodes, Trachea Midline, JVD, Right Lungs: No rhonchi, No wheeze, No rales, Diminished Cardiovascular: Regular rate, Regular Rhythm, Normal S1, Normal S2, Murmur, No rub noted, No Gallop Abdomen: Bowel Sounds Present, Soft, Non Tender, Non-Distended, Obese Extremities: No cyanosis, Capillary Refill Less than 3 Seconds, Clubbing, Edema Skin: - - No significant change compared to yesterday. Musculoskeletal: No Tenderness to Palpation of Joints or Extremities Lymphatic: No Cervical, Supraclavicular, or Inguinal Adenopathy Neurological: Cranial nerves II-XII grossly intact, Neuro grossly intact, Motor Exam 5/5 strength throughout Psych/Mental Status: Anxious, Flat Affect Vital Signs Temp Pulse Resp BP Pulse Ox 36.8 C 75 17 127/59 H 97 10/07/18 08:30 10/07/18 08:39 10/07/18 08:30 10/07/18 08:39 10/07/18 08:30 Oxygen Flow Rate (L/min) 8 Oxygen Delivery Method Nasal Cannula Weight: 97.4 kg Body Mass Index (BMI) 33.5 Intake and Output for Last 24 Hours 10/05/18 10/06/18 10/07/18 23:59 23:59 23:59 Intake Total 830 / 950 1405 / 1525 180 / 180 Output Total 750 / 750 500 / 900 550 / 550 Balance 80 / 200 905 / 625 -370 / -370 Assessment/Plan All Active Problems (Last Reviewed 06/05/18 @ 13:40 by Fito Alcala MD) Acute respiratory failure with hypoxia (Acute) Pulmonary embolism (Acute) Dyspnea on exertion (Acute) LUQ abdominal pain (Acute) NSTEMI (non-ST elevated myocardial infarction) (Acute) 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 Continue anticoagulation and monitor for increased bleeding 2. Wean supplemental oxygen as tolerated 3. Keep saturations greater than 90% at all times 4. Agree with diuretic therapy 5. Continue BiPAP with sleep and as needed during the day 6. Consider outpatient complete PFT IMPRESSIONS: 1. Acute hypoxic respiratory failure secondary to submassive PE with cor pulmonale Patient was significantly elevated right-sided pressures noted on echocardiogram. This may be the etiology of slightly increased troponin and BNP given right ventricular strain. Patient's oxygenation will need to be controlled aggressively to keep saturations greater than 90% to avoid worsening of hypertension. Patient is having some mild hemoptysis at this time, but this would likely be tolerated given pulmonary artery pressures. Patient appears to be responding to therapy appropriately. Amount of blood noted on patient's expectorated sample was minimal and the risk of discontinuation of anticoagulation far outweighs hemoptysis. Continue to wean oxygen as tolerated. Do anticipate patient will require BiPAP overnight with sleep despite improvement in daytime oxygenation. 2. Borderline bronchiectasis with left-sided infiltrates Unclear etiology. Patient may have an underlying pulmonary pathology that is not previously recognized. Patient should have outpatient pulmonary function testing. Left-sided infiltrates may be secondary to pulmonary infarct versus CHF associated with cor pulmonale. Likely hold on any inhaler therapy as tachycardia may exacerbate underlying diastolic dysfunction. 3. Chronic diastolic congestive heart failure/CAD status post CABG and stents/elevated troponin Complicated by cor pulmonale. Agree with intermittent diuretic therapy. Continue rate control with metoprolol. Patient recently had a stent in May 2018, so aspirin and Brilinta should be continued. Clinical suspicion for perfusion mismatch secondary to RV strain more than an acute ischemic event. Patient will need a repeat echocardiogram in the future to show improvement in pulmonary artery pressures. 4. Advanced age/IBS/BPH/chronic pain syndrome/hypercholesterolemia/glaucoma Complicates care, management, recovery and prognosis. Okay to continue with baseline medications from my perspective. Code Visit Inpatient E&M: 14321 Subs Hosp L3
[2018-10-07] MEDS: Ondansetron 4 MG/2 ML Vial IV (11:05)
--- NOTE | 2018-10-07 12:35 | PCM.PN.HOSP ---
Patient Problems: Active and Suspected Problems (Last Reviewed 06/05/18 @ 13:40 by Fito Alcala MD) Acute respiratory failure with hypoxia (Acute) Pulmonary embolism (Acute) Subjective: Patient seen and examined. He still does complain of shortness of breath and was on BiPAP at time of review. Review of systems otherwise negative. Vitals/I&O's: Vital Signs Temp Pulse Resp BP Pulse Ox 98.2 F 78 18 127/59 H 96 10/07/18 08:30 10/07/18 10:00 10/07/18 10:00 10/07/18 08:39 10/07/18 10:00 Oxygen Flow Rate (L/min) 8 Oxygen Delivery Method Nasal Cannula Weight: 214 lb 11.684 oz Body Mass Index (BMI) 33.5 Intake and Output for Last 24 Hours 10/05/18 10/06/18 10/07/18 23:59 23:59 23:59 Intake Total 830 / 950 1405 / 1525 567 / 567 Output Total 750 / 750 500 / 900 900 / 900 Balance 80 / 200 905 / 625 -333 / -333 General: Alert, Oriented x3, Cooperative, No apparent distress HEENT: Atraumatic, PERRLA, EOMI, Normocephalic Oral: Moist Mucosa Neck: Supple, No JVD, Negative Carotid Bruits Lungs: - - on BIPAP. Decreased breath sounds bibasally tachypnea has resolved Cardiovascular: Regular rate, Regular Rhythm, Normal S1, Normal S2, No murmurs Abdomen: Bowel Sounds Present, Soft, Non Tender Extremities: No clubbing, No cyanosis, Capillary Refill Less than 3 Seconds, - -1+ bilateral LE pitting edema, greater on right than left, improved Skin: No rashes, No breakdown Musculoskeletal: No Tenderness to Palpation of Joints or Extremities Lymphatic: No Cervical, Supraclavicular, or Inguinal Adenopathy Neurological: Cranial nerves II-XII grossly intact, Neuro grossly intact, Motor Exam 5/5 strength throughout Psych/Mental Status: Normal Affect, Appropriate, Alert and oriented to time, place, person, mood and affect Current Medications Acetaminophen (Tylenol) 650 mg PO Q6H PRN PRN PRN Reason: Mild Pain (0-2/10) Last Admin: 10/06/18 11:21 Dose: 650 mg Documented by: Apixaban (Eliquis) 10 mg PO BID [facility] Last Admin: 10/07/18 08:38 Dose: 10 mg Documented by: Aspirin (Aspirin, Baby) 81 mg PO DAILY@0800 [facility] Last Admin: 10/07/18 08:36 Dose: 81 mg Documented by: Atorvastatin Calcium (Lipitor) 40 mg PO QHS [facility] Last Admin: 10/06/18 21:04 Dose: 40 mg Documented by: Dextrose (D50w Syringe) 0 gm IV X1 PRN; Protocol PRN Reason: Hypoglycemia Folic Acid (Folic Acid) 0.5 mg PO DAILY@0800 [facility] Last Admin: 10/07/18 08:37 Dose: 0.5 mg Documented by: Furosemide (Lasix) 40 mg IV BID@1000,1800 [facility] Last Admin: 10/07/18 08:38 Dose: 40 mg Documented by: Glucagon () 1 mg IM .X1 PRN PRN Reason: Hypoglycemia Isosorbide Mononitrate (Imdur) 60 mg PO DAILY [facility] Last Admin: 10/07/18 08:38 Dose: 60 mg Documented by: Latanoprost (Xalatan Opthalmic) 1 drop EACH EYE QHS [facility] Last Admin: 10/06/18 21:05 Dose: 1 drop Documented by: Loratadine (Claritin) 10 mg PO DAILY [facility] Last Admin: 10/07/18 08:37 Dose: 10 mg Documented by: Magnesium Oxide (Mag-Ox 400) 400 mg PO DAILY [facility] Last Admin: 10/07/18 08:38 Dose: 400 mg Documented by: Metoprolol Succinate (Toprol Xl (Beta Luis Felipe)) 50 mg PO DAILY [facility] Last Admin: 10/07/18 08:39 Dose: 50 mg Documented by: Multivitamins/Minerals (Multivitamin With Minerals) 1 tablet PO DAILY@0800 [facility] Last Admin: 10/07/18 08:37 Dose: 1 tablet Documented by: Nutritional Formula (Lactose Free) (Ensure Enlive) 120 ml PO 4X/DAY [facility] Last Admin: 10/07/18 08:46 Dose: 120 ml Documented by: Ondansetron HCl (Zofran) 4 mg IV Q6H PRN PRN PRN Reason: NAUSEA Last Admin: 10/07/18 11:05 Dose: 4 mg Documented by: Polyethylene Glycol (Miralax) 17 gm PO DAILY [facility] Last Admin: 10/07/18 08:38 Dose: 17 gm Documented by: Sodium Chloride () 10 - 40 ml IV UD PRN PRN Reason: SALINE FLUSH Last Admin: 10/07/18 11:05 Dose: 10 ml Documented by: Tamsulosin HCl (Flomax) 0.4 mg PO DAILY@1730 [facility] Last Admin: 10/06/18 18:44 Dose: 0.4 mg Documented by: Ticagrelor (Brilinta) 90 mg PO BID [facility] Last Admin: 10/07/18 08:37 Dose: 90 mg Documented by: Assessment/Plan All Active Problems (Last Reviewed 06/05/18 @ 13:40 by Fito Alcala MD) Acute respiratory failure with hypoxia (Acute) Pulmonary embolism (Acute) Dyspnea on exertion (Acute) LUQ abdominal pain (Acute) NSTEMI (non-ST elevated myocardial infarction) (Acute) H/O coronary artery bypass surgery (Resolved 09/12/00) History of coronary artery stent placement (Resolved 05/13/18) Cellulitis (Resolved) Cellulitis and abscess of left lower extremity (Resolved) Chest pain (Resolved) Right pulmonary embolus (Resolved) 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 (Resolved) 1. Acute hypoxic respiratory failure due to right sided submassive PE still on BIPAP with intermittent oxygen by nasal canula. now requiring 8L of oxygen. on PO eliquis 10mg bid 2D echo: Normal left ventricular size with moderate concentric left ventricular hypertrophy and normal systolic function. EF of 65% in stage II diastolic dysfunction. Left atrium and right atrium mildly enlarged. PA systolic pressure is 82mmhg. will likely need anticoagulation for life continue breathing treatments cardiology and pulmonology on board 2. Right-sided submassive PE:as under 1. RLE is more swollen than left, and he may have a DVT. However, duplex not ordered as it won't [employer]. 3. Acute on chronic exacerbation of heart failure with preserved ejection fraction: EF is 65% from 2D echo, with stage 2 diastolic dysfunction on IV lasix 40mg bid; will consider switching to PO lasix tomorrow Fluid restriction to 1500 cc daily. Continue metoprolol 4. Severe pulmonary hypertension and cor pulmonale RVSP per echo was 82mmHg. Likely due to right sided PE as under 1. pulmonology on board on BIPAP and oxygen by nasal canula prn 5. CAD status post CABG and stent: Had drug-eluting stent placed in the RCA in May 2018 for NSTEMI. Subsequently had restenosis of recently placed stent. Currently on aspirin and Brilinta. on aspirin and brilinta as well as statin. 6. Elevated troponin: EKG showed no acute ST changes. initial troponin was 0.129->0.138->0.121 likely due to cardiac strain from PE on aspirin, brilinta and statin. 7. IBS: On lubiprostone. Stable 8. BPH: on flomax DVT prophylaxis: on therapeutic eliquis for PE Code Visit Inpatient E&M: 42939 Subs Hosp L3
--- NOTE | 2018-10-07 15:17 | NURSING ---
THIS RN WAS CALLED INTO ROOM BY ANCILLARY STAFF. PATIENT HAD BEEN WORKING WITH PHYSICAL THERAPY AND THEY WERE CONCERNED THAT PATIENT WAS GOING TO LOSE CONSCIOUSNESS. UPON MY ARRIVAL TO THE ROOM, PATIENT WAS LETHARGIC, RESPONSIVE TO VOICE, FOLLOWS COMMANDS, AND ANSWERS QUESTIONS APPROPRIATELY. BGM 174MG/DL. PATIENT'S SPO2 WAS 80% ON 8LPM HIGH FLOW O2 DURING EXERTION. PATIENT PLACED ON BIPAP AND HIS SPO2 INCREASED TO 98% AND HE REGAINED HIS BASELINE LEVEL OF CONSCIOUSNESS. VITAL SIGNS OBTAINED AND ARE STABLE. PATIENT LEFT IN A POSITION O0F COMFORT. BED IS LOWEST LOCKED POSITION WITH SIDE RAILS UP X3. BED ALARM ON. PATIENT DENIES ANY ADDITIONAL NEEDS AT THIS TIME.
[2018-10-07 15:25] LABS: Bedside Glucose 174 mg/dL (70-110)
[2018-10-07] MEDS: Tamsulosin HCl 0.4 MG Capsule PO (17:12)
[2018-10-07] MEDS: Atorvastatin Calcium 40 MG Tablet PO (21:16)
[2018-10-07] MEDS: Latanoprost 0.005% 1 Bottle 1 DRP EACH EYE (21:17)
[2018-10-08] VITALS (16 sets, daily range): BP systolic 113–142; BP diastolic 60–71; PULSE 72–96; RESP 12–27; TEMP 37–37.2; O2SAT 86–99
[2018-10-08] MEDS: Nitroglycerin (INPATIENT USE) 0.4 MG TAB.SUBL SUBLINGUAL (07:02)
--- NOTE | 2018-10-08 07:03 | NURSING ---
This RN updated patients RN on status and orders by Dr. Jean Baptiste.
--- NOTE | 2018-10-08 07:44 | NURSING ---
Nurse called to pt's room for c/o CP. HOOD Duenas went to pt's room to help as this nurse in with another pt with CP. Dr. Jean Baptiste notified, EKG obtained, troponin ordered. Pt given Nitro sublingual, after a few minutes pt states that CP is alleviated some. HOOD Tejada
[2018-10-08 07:58] LABS: Absolute Neutrophil Count 7.5 X10^3/uL (2.0-7.7); Basophil# 0.01 X10^3/uL; Basophil% 0.1 % (0-1); Eosinophil# 0.14 X10^3/uL; Eosinophils% 1.5 % (0-5); Hematocrit 29.9 % (40-54); Hemoglobin 9.7 g/dl (13.0-16.5); Lymphocyte % 7.7 % (19-41); Mean Corp Hgb Conc 32.4 g/gl (32-36); Mean Corpuscular Hgb 26.5 pg (27.0-32.0); Mean Corpuscular Volume 81.7 fL (80-94); Mean Platelet Vol. 10.8 fl (6.2-12.0); Monocyte# 0.73 X10^3/uL; Neutrophil # 7.49 X10^3/uL (2.7-7.7); Neutrophil % 82.6 % (47-70); Platelet Count 188 K/mm3 (150-450); RBC Distribution Width CV 18.6 % (11.6-14.6); RBC Distribution Width SD 55.9 fl (35.1-43.9); Red Blood Count 3.66 M/mm3 (4.6-6.2); White Blood Count 9.1 K/mm3 (4.4-11.0)
[2018-10-08 08:03] LABS: POSITIVE COUNT NO; POSITIVE DIFFERENTIAL NO; POSITIVE MORPHOLOGY NO
--- NOTE | 2018-10-08 08:52 | PN_ITS ---
Patient Problems: Active and Suspected Problems (Last Reviewed 06/05/18 @ 13:40 by Fito Alcala MD) Acute respiratory failure with hypoxia (Acute) Pulmonary embolism (Acute) Subjective: Patient did okay overnight. Patient continues to require high liter flow when off of BiPAP therapy. Patient resting comfortably during my evaluation and not interested in answering questions. - Physical Exam General: Oriented x3, Cooperative, No apparent distress, - - Good BiPAP synchrony. HEENT: Atraumatic, PERRLA, EOMI Oral: No Gingival or Mucosal Lesions/ Ulcerations, Dry Mucosa Neck: Supple, No Nodes, Trachea Midline, JVD, Right Lungs: Clear to auscultation, No rhonchi, No wheeze, No rales Cardiovascular: Normal S1, Normal S2, Irregular Rate, Murmur, No rub noted, No Gallop Abdomen: Bowel Sounds Present, Soft, Non Tender, Non-Distended Extremities: No cyanosis, Clubbing, Edema Skin: No rashes, No breakdown Musculoskeletal: No Tenderness to Palpation of Joints or Extremities Lymphatic: No Cervical, Supraclavicular, or Inguinal Adenopathy Neurological: Cranial nerves II-XII grossly intact, Neuro grossly intact, Motor Exam 5/5 strength throughout Psych/Mental Status: Flat Affect Vital Signs Temp Pulse Resp BP Pulse Ox 37.1 C 72 24 H 142/71 H 99 10/08/18 08:40 10/08/18 08:40 10/08/18 08:40 10/08/18 08:40 10/08/18 08:40 Oxygen Flow Rate (L/min) 10 Oxygen Delivery Method Bi-pap Weight: 95.2 kg Body Mass Index (BMI) 33.5 Intake and Output for Last 24 Hours 10/06/18 10/07/18 10/08/18 23:59 23:59 23:59 Intake Total 1405 / 1525 1327 / 1327 190 / 190 Output Total 500 / 900 1300 / 1300 Balance 905 / 625 27 / 190 / 190 Laboratory Tests Past 24 Hrs 10/08/18 10/08/18 07:25 07:25 WBC 9.1 RBC 3.66 L Hgb 9.7 L Hct 29.9 L MCV 81.7 MCH 26.5 L MCHC 32.4 RDW 18.6 H RDW Differential 55.9 H Plt Count 188 MPV 10.8 Immature Gran % (Auto) 0.100 Neut % (Auto) 82.6 H Lymph % (Auto) 7.7 L [place] % (Auto) 8.0 Eos % (Auto) 1.5 Baso % (Auto) 0.1 Absolute Neuts (auto) 7.5 Absolute Lymphs (auto) 0.70 L Total Counted Not Reportable Troponin I 0.083 H POC Glucose 10/07/18 15:13 POC Glucose 174 H Assessment/Plan All Active Problems (Last Reviewed 06/05/18 @ 13:40 by Fito Alcala MD) Acute respiratory failure with hypoxia (Acute) Pulmonary embolism (Acute) Dyspnea on exertion (Acute) LUQ abdominal pain (Acute) NSTEMI (non-ST elevated myocardial infarction) (Acute) 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 Continue anticoagulation and monitor for increased bleeding 2. Wean supplemental oxygen as tolerated 3. Keep saturations greater than 90% at all times 4. Continue diuretic therapy 5. Continue BiPAP with sleep and as needed during the day 6. Consider outpatient complete PFT IMPRESSIONS: 1. Acute hypoxic respiratory failure secondary to submassive PE with cor pulmonale Patient was significantly elevated right-sided pressures noted on echocardiogram. This may be the etiology of slightly increased troponin and BNP given right ventricular strain. Patient's oxygenation will need to be controlled aggressively to keep saturations greater than 90% to avoid worsening of hypertension. Patient's hemoptysis should not limit anticoagulation. Patient appears to be responding to therapy appropriately. Amount of blood noted on patient's expectorated sample was minimal and the risk of discontinuation of anticoagulation far outweighs hemoptysis. Continue to wean oxygen as tolerated. Do anticipate patient will require BiPAP overnight with sleep despite improvement in daytime oxygenation. 2. Borderline bronchiectasis with left-sided infiltrates Unclear etiology. Patient may have an underlying pulmonary pathology that is not previously recognized. Patient should have outpatient pulmonary function testing. Left-sided infiltrates may be secondary to pulmonary infarct versus CHF associated with cor pulmonale. Likely hold on any inhaler therapy as tachycardia may exacerbate underlying diastolic dysfunction. 3. Chronic diastolic congestive heart failure/CAD status post CABG and stents/elevated troponin Complicated by cor pulmonale. Agree with intermittent diuretic therapy. Continue rate control with metoprolol. Patient recently had a stent in May 2018, so aspirin and Brilinta should be continued. Clinical suspicion for perfu paras mismatch secondary to RV strain more than an acute ischemic event. Patient will need a repeat echocardiogram in the future to show improvement in pulmonary artery pressures. 4. Advanced age/IBS/BPH/chronic pain syndrome/hypercholesterolemia/glaucoma Complicates care, management, recovery and prognosis. Okay to continue with baseline medications from my perspective. Code Visit Inpatient E&M: 50327 Subs Hosp L3
--- NOTE | 2018-10-08 09:58 | EKG12_ITS ---
Test Reason : CP Blood Pressure : / mmHG Vent. Rate : 097 BPM Atrial Rate : 097 BPM P-R Int : 148 ms QRS Dur : 106 ms QT Int : 380 ms P-R-T Axes : 019 -49 001 degrees QTc Int : 482 ms Sinus rhythm with Premature atrial complexes Possible Left atrial enlargement Incomplete right bundle branch block Left anterior fascicular block Left ventricular hypertrophy Nonspecific ST and T wave abnormality Prolonged QT Abnormal ECG When compared with ECG of 06-OCT-2018 19:25, MANUAL COMPARISON REQUIRED, DATA IS UNCONFIRMED Confirmed by MATA GARZON, SHAYY ([id number]), rewrite editor KULWANT ZARCO ([id number]) on 10/09/2018 12:45:23 PM Referred By: SHADI Confirmed By:CHACE AUGUST MD
[2018-10-08] MEDS: Aspirin 81 MG TAB.CHEW PO (10:24)
[2018-10-08] MEDS: TICAGRELOR 90 MG TABLET PO (10:24)
[2018-10-08] MEDS: Multivitamins,Ther W-Minerals Tablet 1 TABLET PO (10:24)
[2018-10-08] MEDS: Loratadine 10 MG Tablet PO (10:24)
[2018-10-08] MEDS: Magnesium Oxide 400 MG Tablet PO (10:24)
[2018-10-08] MEDS: Metoprolol(XL)Succ 50 MG Tablet PO (10:25)
[2018-10-08] MEDS: Isosorbide Mononitrate 60 MG Tablet PO (10:25)
[2018-10-08] MEDS: Folic Acid 1 MG Tablet 0.5 MG PO (10:26)
[2018-10-08] MEDS: Furosemide 40 MG/4 ML Vial IV ×2 (10:26→17:19)
--- NOTE | 2018-10-08 11:26 | PCM.PN.HOSP ---
Patient Problems: Active and Suspected Problems (Last Reviewed 06/05/18 @ 13:40 by Fito Alcala MD) Acute respiratory failure with hypoxia (Acute) Pulmonary embolism (Acute) Subjective: Patient seen and examined. He complained of chest pain this morning. Was also noted to have hemoptysis and was also having epistasis. Shortness of breath still persists. He denies any nausea, vomiting or diarrhea. Review of systems otherwise negative. Labs and vitals reviewed. Vitals/I&O's: Vital Signs Temp Pulse Resp BP Pulse Ox 98.8 F 96 26 H 142/71 H 95 10/08/18 08:40 10/08/18 11:04 10/08/18 11:04 10/08/18 08:40 10/08/18 11:04 Oxygen Flow Rate (L/min) 10 Oxygen Delivery Method Bi-pap Weight: 209 lb 14.081 oz Body Mass Index (BMI) 33.5 Intake and Output for Last 24 Hours 10/06/18 10/07/18 10/08/18 23:59 23:59 23:59 Intake Total 1405 / 1525 1327 / 1327 190 / 190 Output Total 500 / 900 1300 / 1300 Balance 905 / 625 27 / 27 190 / 190 General: Alert, Oriented x3, Cooperative, No apparent distress HEENT: Atraumatic, PERRLA, EOMI, Normocephalic Oral: Moist Mucosa Neck: Supple, No JVD, Negative Carotid Bruits Lungs: - - on BIPAP. Decreased breath sounds bibasally. tachypnea this morning. Cardiovascular: Regular rate, Regular Rhythm, Normal S1, Normal S2, No murmurs Abdomen: Bowel Sounds Present, Soft, Non Tender Extremities: No clubbing, No cyanosis, Capillary Refill Less than 3 Seconds, - -1+ bilateral LE pitting edema, greater on right than left, improved Skin: No rashes, No breakdown Musculoskeletal: No Tenderness to Palpation of Joints or Extremities Lymphatic: No Cervical, Supraclavicular, or Inguinal Adenopathy Neurological: Cranial nerves II-XII grossly intact, Neuro grossly intact, Motor Exam 5/5 strength throughout Psych/Mental Status: Normal Affect, Appropriate, Alert and oriented to time, place, person, mood and affect Laboratory Results 10/07/18 15:13: POC Glucose 174 H 10/08/18 07:25: WBC 9.1, RBC 3.66 L, Hgb 9.7 L, Hct 29.9 L, MCV 81.7, MCH 26.5 L, MCHC 32.4, RDW 18.6 H, RDW Differential 55.9 H, Plt Count 188, MPV 10.8, Immature Gran % (Auto) 0.100, Neut % (Auto) 82.6 H, Lymph % (Auto) 7.7 L, [place] % (Auto) 8.0, Eos % (Auto) 1.5, Baso % (Auto) 0.1, Absolute Neuts (auto) 7.5, Absolute Lymphs (auto) 0.70 L, Total Counted Not Reportable 10/08/18 07:25: Troponin I 0.083 H Current Medications Acetaminophen (Tylenol) 650 mg PO Q6H PRN PRN PRN Reason: Mild Pain (0-2/10) Last Admin: 10/06/18 11:21 Dose: 650 mg Documented by: Apixaban (Eliquis) 10 mg PO BID [facility] Last Admin: 10/07/18 21:16 Dose: 10 mg Documented by: Aspirin (Aspirin, Baby) 81 mg PO DAILY@0800 [facility] Last Admin: 10/08/18 10:24 Dose: 81 mg Documented by: Atorvastatin Calcium (Lipitor) 40 mg PO QHS [facility] Last Admin: 10/07/18 21:16 Dose: 40 mg Documented by: Dextrose (D50w Syringe) 0 gm IV X1 PRN; Protocol PRN Reason: Hypoglycemia Folic Acid (Folic Acid) 0.5 mg PO DAILY@0800 [facility] Last Admin: 10/08/18 10:26 Dose: 0.5 mg Documented by: Furosemide (Lasix) 40 mg IV BID@1000,1800 [facility] Last Admin: 10/08/18 10:26 Dose: 40 mg Documented by: Glucagon () 1 mg IM .X1 PRN PRN Reason: Hypoglycemia Isosorbide Mononitrate (Imdur) 60 mg PO DAILY [facility] Last Admin: 10/08/18 10:25 Dose: 60 mg Documented by: Latanoprost (Xalatan Opthalmic) 1 drop EACH EYE QHS [facility] Last Admin: 10/07/18 21:17 Dose: 1 drop Documented by: Loratadine (Claritin) 10 mg PO DAILY [facility] Last Admin: 10/08/18 10:24 Dose: 10 mg Documented by: Magnesium Oxide (Mag-Ox 400) 400 mg PO DAILY [facility] Last Admin: 10/08/18 10:24 Dose: 400 mg Documented by: Metoprolol Succinate (Toprol Xl (Beta Luis Felipe)) 50 mg PO DAILY [facility] Last Admin: 10/08/18 10:25 Dose: 50 mg Documented by: Multivitamins/Minerals (Multivitamin With Minerals) 1 tablet PO DAILY@0800 [facility] Last Admin: 10/08/18 10:24 Dose: 1 tablet Documented by: Nitroglycerin (Nitrostat) 0.4 mg SUBLINGUAL Q5M PRN PRN Reason: CARDIAC/CHEST PAIN Last Admin: 10/08/18 07:02 Dose: 1 tab Documented by: Nutritional Formula (Lactose Free) (Ensure Enlive) 120 ml PO 4X/DAY [facility] Last Admin: 10/08/18 10:25 Dose: 120 ml Documented by: Ondansetron HCl (Zofran) 4 mg IV Q6H PRN PRN PRN Reason: NAUSEA Last Admin: 10/07/18 11:05 Dose: 4 mg Documented by: Polyethylene Glycol (Miralax) 17 gm PO DAILY [facility] Last Admin: 10/08/18 10:23 Dose: Not Given Documented by: Sodium Chloride () 10 - 40 ml IV UD PRN PRN Reason: SALINE FLUSH Last Admin: 10/07/18 11:05 Dose: 10 ml Documented by: Tamsulosin HCl (Flomax) 0.4 mg PO DAILY@1730 [facility] Last Admin: 10/07/18 17:12 Dose: 0.4 mg Documented by: Ticagrelor (Brilinta) 90 mg PO BID [facility] Last Admin: 10/08/18 10:24 Dose: 90 mg Documented by: Assessment/Plan All Active Problems (Last Reviewed 06/05/18 @ 13:40 by Fito Alcala MD) Acute respiratory failure with hypoxia (Acute) Pulmonary embolism (Acute) Dyspnea on exertion (Acute) LUQ abdominal pain (Acute) NSTEMI (non-ST elevated myocardial infarction) (Acute) H/O coronary artery bypass surgery (Resolved 09/12/00) History of coronary artery stent placement (Resolved 05/13/18) Cellulitis (Resolved) Cellulitis and abscess of left lower extremity (Resolved) Chest pain (Resolved) Right pulmonary embolus (Resolved) 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 (Resolved) 1. Acute hypoxic respiratory failure due to right sided submassive PE still on BIPAP with intermittent oxygen by nasal canula. gets SOB when transitioned to oxygen by nasal canula on PO eliquis 10mg bid 2D echo: Normal left ventricular size with moderate concentric left ventricular hypertrophy and normal systolic function. EF of 65% in stage II diastolic dysfunction. Left atrium and right atrium mildly enlarged. PA systolic pressure is 82mmhg. continue breathing treatments cardiology and pulmonology on board 2. Right-sided submassive PE: as under 1. RLE is more swollen than left, and he may have a DVT. However, duplex not ordered as it won't exchange teller. 3. Chest pain: complained of chest pain this morning. Troponin was 0.083; likely due to effect of PE and cardiac strain. EKG showed no acute ST changes. WIll continue monitoring. 4. Epistaxis and hemoptysis, likely due to anticoagulation noted to have epistaxis htis morning by nurse, and also having isaac hemoptysis discussed with cardiology, will dc brilinta and continue aspirin and eliquis for now 5. Acute on chronic exacerbation of heart failure with preserved ejection fraction: EF is 65% from 2D echo, with stage 2 diastolic dysfunction on IV lasix 40mg bid; Fluid restriction to 1500 cc daily. Continue metoprolol 6. Severe pulmonary hypertension and cor pulmonale RVSP per echo was 82mmHg. Likely due to right sided PE as under 1. pulmonology on board on BIPAP and oxygen by nasal canula prn 7. CAD status post CABG and stent: Had drug-eluting stent placed in the RCA in May 2018 for NSTEMI. Subsequently had restenosis of recently placed stent. Currently on aspirin and Brilinta. Brilinta held today after discussion with cardiology o/a of epistaxis and hemoptysis 8. Elevated troponin: EKG showed no acute ST changes. likely due to cardiac strain from PE on aspirin, brilinta and statin. brilinta discontinued today 7. IBS: On lubiprostone. Stable 8. BPH: on flomax DVT prophylaxis: on therapeutic eliquis for PE Code Visit Inpatient E&M: [id number] [place] [id number]
[2018-10-08] MEDS: APIXABAN 5 MG TABLET 10 MG PO ×2 (12:04→21:28)
--- NOTE | 2018-10-08 16:43 | CHAPLAIN ---
Type of Pastoral Visit _x__ Initial Visit ___ Follow-up Visit ___ On-call Visit ___ General Patient Visit ___ Spiritual Assessment ___ Family Conference ___ Bereavement ___ Rapid Response ___ Code Blue ___ Other (describe below) Pastoral Care Referral From _x__ Patient ___ Family _x__ Nurse ___ Physician ___ Grievance Manager ___ Wood Boat Builder Supervisor ___ Other (describe below) Sacrament/Intervention _x__ Active listening ___ Anointing ___ Synagogue ___ Bereavement ___ Communion _x__ Olivia exploration ___ ___ Life review _x__ Prayer ___ Reconciliation ___ Sacrament of Sick _x__ Supportive presence ___ Wedding ___ Other (describe below) Pastoral Comments RN suggested offer of spiritual care to patient and family members who are gathered into room; family is waiting on hospice consult; pt speaks to this police surgeon of his desire for suffering to end and to go home to be with Boby; pt seeks prayer support as the best thing we can do; family is supportive; pt is member of [employer]; offer of support given to family members
--- NOTE | 2018-10-08 17:07 | PN.CARD_ITS ---
Subjectve: Patient seen and evaluated. Appears to be short of breath also complaining of some chest discomfort. He appears uncomfortable. Objective: Vital Signs Temp Pulse Resp BP Pulse Ox 99.0 F 84 24 H 113/60 97 10/08/18 14:12 10/08/18 15:00 10/08/18 14:12 10/08/18 14:12 10/08/18 14:12 Oxygen Flow Rate (L/min) 10 Oxygen Delivery Method Bi-pap Weight: 209 lb 14.081 oz Body Mass Index (BMI) 33.5 Intake and Output for Last 24 Hours 10/06/18 10/07/18 10/08/18 23:59 23:59 23:59 Intake Total 1405 / 1525 1327 / 1327 430 / 430 Output Total 500 / 900 1300 / 1300 200 / 200 Balance 905 / 625 230 / 230 General: Awake, Alert, Oriented x 3 HEENT: PERRL, EOMI, Sclera Non Icteric Neck: Supple, Good ROM, No Lymph Node Enlargement Lungs: Diminished [place]onal Bases Cardiovascular: Regular Rhythm, Normal S1, Normal S2, No Murmurs, No Rubs, No Gallops Vascular: No Carotid Bruits, Normal Femoral Pulses, Normal Radial Pulses, Normal Dorsalis Pedal Pulse, Normal Posterior Tibial Pulses Abdomen: Bowel Sounds Present, Soft, Non Tender, No HSM, No Organomegaly Extremities: No Cyanosis, No Clubbing, No edema Musculoskeletal: No Erythema Skin: No Rashes Lymphatic: No Lymph Node Enlargement Neurological: No Focal Motor or Sensory Deficit 10/08/18 07:25: WBC 9.1, RBC 3.66 L, Hgb 9.7 L, Hct 29.9 L, MCV 81.7, MCH 26.5 L , MCHC 32.4, RDW 18.6 H, RDW Differential 55.9 H, Plt Count 188, MPV 10.8, Immature Gran % (Auto) 0.100, Neut % (Auto) 82.6 H, Lymph % (Auto) 7.7 L, [place] % (Auto) 8.0, Eos % (Auto) 1.5, Baso % (Auto) 0.1, Absolute Neuts (auto) 7.5, Tot al Counted Not Reportable 10/08/18 07:25: Troponin I 0.083 H Rhythm: EKG: ECHO: Stress Test: Cardiac Cath: PCI: CT Surgery: Holter monitor: EPS: PPM: CXR: Chest CT Scan: Assessment/Plan 1. Dyspnea on exertion Patient presents with dyspnea and is noted to have a pulmonary embolism. He will need to be anticoagulated per usual protocol but due to his epistaxis I would suggest that we discontinue his Brilinta at this particular time. His echocardiogram demonstrated significant elevation in his right ventricular pressures. This is likely responsible for his elevated troponin and natruretic peptide levels. We will continue the apixaban for now. 2. 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 No changes were made with the risk factor to his antianginal therapy. His Brilinta has been discontinued. 3. History of coronary artery stent placement Z95.5 PTCA/EASTON Anomalous LCX off of RCA with a 2.25 x 24 Promus Synergy and PTCA/EASTON of distal RCA in stent plaque protrusion with possible non occlusive thrombus w/ 3.5 x 32 Promus Synergy05/19/18 PTCA/EASTON distal RCA with a 3.5 x 38 Promus Syergy and EASTON mid RCA with a 4.0 x 32 Promus Synergy Stent 05/13/18 EASTON-Prox LAD w/ 3.5 mm x 20 mm Promus Stent 08/27/12 [id number] & proximal RCA 06/21/2002 He will continue the current treatment plan as outlined above. 4. 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 5. Essential (primary) hypertension I10 Plan Patient's blood pressure is well-controlled. This is also been monitored during cardiac rehab and been well controlled most days. We will continue to monitor. We will not make any medication regimen changes. Orders 6. Hyperlipidemia, unspecified hyperlipidemia type E78.5 Plan He will continue with current statin medication. I had a long discussion with his family who had just had a discussion with hospice. At this time they have decided against that. It would be helpful to give him something to relieve his pain. 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 Stent apposition confirmed with IVUS before and after stent deployment. 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 Echocardiogram from 05/10/2018: Interpretation Summary The left atrium is mildly enlarged. Normal LV size. Mild concentric left ventricular hypertrophy. Left ventricular systolic function is normal. The estimated ejection fraction is 65 %. Pulmonary artery systolic pressure is 38 mmHg. Contrast injection was performed. Stress test from 10/15/2017: Conclusion: Pharmacologic myocardial perfusion stress test with no significant ischemia noted. Previous basal inferior infarct is present. Minimal humaira-infarct ischemia cannot be completely excluded. Preserved ejection fraction.
[2018-10-08] MEDS: Tamsulosin HCl 0.4 MG Capsule PO (17:19)
[2018-10-08] MEDS: fentaNYL 100 MCG/2 ML Ampul 25 MCG IV (18:11)
[2018-10-08] MEDS: Atorvastatin Calcium 40 MG Tablet PO (21:28)
[2018-10-08] MEDS: Latanoprost 0.005% 1 Bottle 1 DRP EACH EYE (21:28)
[2018-10-08] MEDS: oxyCODONE 5 MG Tablet PO (22:38)
[2018-10-09] VITALS (19 sets, daily range): BP systolic 110–141; BP diastolic 55–69; PULSE 72–89; RESP 12–29; TEMP 36.4–37.2; O2SAT 81–100
--- NOTE | 2018-10-09 02:04 | NURSING ---
Per RT pt wore Bipap for a while, then declined. Talked with pt, who states the mask is uncomfortable, does not want to wear it right now. Advised pt we will monitor pt's O2 levels, but may need to put bipap back on. Pt aware, and understands. Pt is currently on Hi flow O2 via NC at 10L, will continue to monitor, and adjust O2 as needed. Will monitor and keep MD updated as well. Discussed with sewing supervisor Pt is a/o x3, DNRCCA. HOOD [place]
[2018-10-09] MEDS: oxyCODONE 5 MG Tablet PO ×2 (02:52→23:41)
[2018-10-09] MEDS: Acetaminophen 500 MG Tablet 1000 MG PO ×3 (05:33→21:01)
--- NOTE | 2018-10-09 09:38 | PCM.PN.PUL ---
Patient Problems: Active and Suspected Problems (Last Reviewed 06/05/18 @ 13:40 by Fito Alcala MD) Acute respiratory failure with hypoxia (Acute) Pulmonary embolism (Acute) Subjective: Patient did okay overnight. Patient reportedly had discussions with hospice yesterday evening, but has since denied wishes to address with hospice. This morning, patient was complaining of a chest heaviness on my evaluation. Patient's supplemental oxygen was found out of his nose and pulse oximeter was displaced. Pulse oximetry read 68%, but improved to 89% after replacement of nasal cannula. This did not result in resolution of chest pain. - Physical Exam General: Alert, Cooperative, - - Mild distress. HEENT: Atraumatic, PERRLA, EOMI, Normocephalic, - - Light scleral injection. Dried epistaxis in the right nares Oral: No Gingival or Mucosal Lesions/ Ulcerations, Dry Mucosa Neck: Supple, No Nodes, Trachea Midline, JVD, Right Lungs: No rhonchi, No wheeze, No rales, Diminished, - - Symmetric expansion. No dullness to percussion. Cardiovascular: Normal S1, Normal S2, No murmurs, Irregular Rate, No rub noted, No Gallop Abdomen: Bowel Sounds Present, Soft, Distended Extremities: No cyanosis, Clubbing, Edema Skin: No rashes, No breakdown Musculoskeletal: No Tenderness to Palpation of Joints or Extremities Lymphatic: No Cervical, Supraclavicular, or Inguinal Adenopathy Neurological: Cranial nerves II-XII grossly intact, Neuro grossly intact, Motor Exam 5/5 strength throughout Psych/Mental Status: Impulsive, Restless Vital Signs Temp Pulse Resp BP Pulse Ox 37.0 C 89 18 138/65 H 92 10/09/18 05:34 10/09/18 05:34 10/09/18 05:34 10/09/18 05:34 10/09/18 05:34 Oxygen Flow Rate (L/min) 10 Oxygen Delivery Method Nasal Cannula Weight: 96.6 kg Body Mass Index (BMI) 33.5 Intake and Output for Last 24 Hours 10/07/18 10/08/18 10/09/18 23:59 23:59 23:59 Intake Total 1327 / 1327 850 / 850 230 / 230 Output Total 1300 / 1300 400 / 400 Balance 450 / 450 230 / 230 Assessment/Plan All Active Problems (Last Reviewed 06/05/18 @ 13:40 by Fito Alcala MD) Acute respiratory failure with hypoxia (Acute) Pulmonary embolism (Acute) Dyspnea on exertion (Acute) LUQ abdominal pain (Acute) NSTEMI (non-ST elevated myocardial infarction) (Acute) 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 Continue anticoagulation and monitor for increased bleeding 2. Wean supplemental oxygen as tolerated 3. Keep saturations greater than 90% at all times 4. Continue diuretic therapy 5. Continue BiPAP with sleep and as needed during the day 6. Consider outpatient complete PFT IMPRESSIONS: 1. Acute hypoxic respiratory failure secondary to submassive PE with cor pulmonale Patient was significantly elevated right-sided pressures noted on echocardiogram. This may be the etiology of slightly increased troponin and BNP given right ventricular strain. Patient's oxygenation will need to be controlled aggressively to keep saturations greater than 90% to avoid worsening of hypercarbia. Patient's hemoptysis should not limit anticoagulation at these levels. Patient appears to be responding to therapy slowly. Continue to wean oxygen as tolerated. Do anticipate patient will require BiPAP overnight with sleep despite improvement in daytime oxygenation. 2. Borderline bronchiectasis with left-sided infiltrates Unclear etiology. Patient may have an underlying pulmonary pathology that is not previously recognized. Patient should have outpatient pulmonary function testing. Left-sided infiltrates may be secondary to pulmonary infarct versus CHF associated with cor pulmonale. Likely hold on any inhaler therapy as tachycardia may exacerbate underlying diastolic dysfunction. 3. Chronic diastolic congestive heart failure/CAD status post CABG and stents/elevated troponin Complicated by cor pulmonale. Agree with intermittent diuretic therapy. Continue rate control with metoprolol. Patient recently had a stent in May 2018, so aspirin and Brilinta should be continued. Clinical suspicion for perfusion mismatch secondary to RV strain more than an acute ischemic event. Patient will need a repeat echocardiogram in the future to show improvement in pulmonary artery pressures. Guarded long-term prognosis. 4. Advanced age/IBS/BPH/chronic pain syndrome/hypercholesterolemia/glaucoma Complicates care, management, recovery and prognosis. Okay to continue with baseline medications from my perspective. Patient is reportedly refusing hospice at this time. Code Visit Inpatient E&M: 80522 Subs Hosp L3
[2018-10-09] MEDS: Folic Acid 1 MG Tablet 0.5 MG PO (10:08)
[2018-10-09] MEDS: Loratadine 10 MG Tablet PO (10:08)
[2018-10-09] MEDS: Aspirin 81 MG TAB.CHEW PO (10:08)
[2018-10-09] MEDS: Multivitamins,Ther W-Minerals Tablet 1 TABLET PO (10:08)
[2018-10-09] MEDS: APIXABAN 5 MG TABLET 10 MG PO ×2 (10:09→21:02)
--- NOTE | 2018-10-09 10:09 | PCM.PN.HOSP ---
Patient Problems: Active and Suspected Problems (Last Reviewed 06/05/18 @ 13:40 by Fito Alcala MD) Acute respiratory failure with hypoxia (Acute) Pulmonary embolism (Acute) Subjective: Patient seen and examined. He looks much better today. Patient and family requested hospice evaluation yesterday. After hospice evaluated patient, they chose not to follow through with hospice. He is on nasal cannula 10 L of oxygen today and states he feels much better. Chest pain has improved. He did have some epistaxis this morning. Brilinta has been discontinued. Vitals/I&O's: Vital Signs Temp Pulse Resp BP Pulse Ox 98.6 F 89 18 138/65 H 92 10/09/18 05:34 10/09/18 05:34 10/09/18 05:34 10/09/18 05:34 10/09/18 05:34 Oxygen Flow Rate (L/min) 10 Oxygen Delivery Method Nasal Cannula Weight: 212 lb 15.465 oz Body Mass Index (BMI) 33.5 Intake and Output for Last 24 Hours 10/07/18 10/08/18 10/09/18 23:59 23:59 23:59 Intake Total 1327 / 1327 850 / 850 230 / 230 Output Total 1300 / 1300 400 / 400 Balance / 450 / 450 230 / 230 General: Alert, Oriented x3, Cooperative, No apparent distress, looks much better today HEENT: Atraumatic, PERRLA, EOMI, Normocephalic Oral: Moist Mucosa Neck: Supple, No JVD, Negative Carotid Bruits Lungs: - - off BIPAP. Decreased breath sounds bibasally. tachypnea this morning. Cardiovascular: Regular rate, Regular Rhythm, Normal S1, Normal S2, No murmurs Abdomen: Bowel Sounds Present, Soft, Non Tender Extremities: No clubbing, No cyanosis, Capillary Refill Less than 3 Seconds, - -edema of LE has resolved. Skin: No rashes, No breakdown Musculoskeletal: No Tenderness to Palpation of Joints or Extremities Lymphatic: No Cervical, Supraclavicular, or Inguinal Adenopathy Neurological: Cranial nerves II-XII grossly intact, Neuro grossly intact, Motor Exam 5/5 strength throughout Psych/Mental Status: Normal Affect, Appropriate, Alert and oriented to time, place, person, mood and affect Current Medications Acetaminophen (Tylenol) 650 mg PO Q6H PRN PRN PRN Reason: Mild Pain (0-2/10) Last Admin: 10/06/18 11:21 Dose: 650 mg Documented by: Acetaminophen (Tylenol) 1,000 mg PO Q8 [facility] Last Admin: 10/09/18 05:33 Dose: 1,000 mg Documented by: Apixaban (Eliquis) 10 mg PO BID [facility] Last Admin: 10/08/18 21:28 Dose: 10 mg Documented by: Aspirin (Aspirin, Baby) 81 mg PO DAILY@0800 [facility] Last Admin: 10/08/18 10:24 Dose: 81 mg Documented by: Atorvastatin Calcium (Lipitor) 40 mg PO QHS [facility] Last Admin: 10/08/18 21:28 Dose: 40 mg Documented by: Dextrose (D50w Syringe) 0 gm IV X1 PRN; Protocol PRN Reason: Hypoglycemia Folic Acid (Folic Acid) 0.5 mg PO DAILY@0800 [facility] Last Admin: 10/08/18 10:26 Dose: 0.5 mg Documented by: Furosemide (Lasix) 40 mg IV BID@1000,1800 [facility] Last Admin: 10/08/18 17:19 Dose: 40 mg Documented by: Glucagon () 1 mg IM .X1 PRN PRN Reason: Hypoglycemia Isosorbide Mononitrate (Imdur) 60 mg PO DAILY [facility] Last Admin: 10/08/18 10:25 Dose: 60 mg Documented by: Latanoprost (Xalatan Opthalmic) 1 drop EACH EYE QHS [facility] Last Admin: 10/08/18 21:28 Dose: 1 drop Documented by: Loratadine (Claritin) 10 mg PO DAILY [facility] Last Admin: 10/08/18 10:24 Dose: 10 mg Documented by: Magnesium Oxide (Mag-Ox 400) 400 mg PO DAILY [facility] Last Admin: 10/08/18 10:24 Dose: 400 mg Documented by: Metoprolol Succinate (Toprol Xl (Beta Luis Felipe)) 50 mg PO DAILY [facility] Last Admin: 10/08/18 10:25 Dose: 50 mg Documented by: Multivitamins/Minerals (Multivitamin With Minerals) 1 tablet PO DAILY@0800 [facility] Last Admin: 10/08/18 10:24 Dose: 1 tablet Documented by: Nitroglycerin (Nitrostat) 0.4 mg SUBLINGUAL Q5M PRN PRN Reason: CARDIAC/CHEST PAIN Last Admin: 10/08/18 07:02 Dose: 1 tab Documented by: Nutritional Formula (Lactose Free) (Ensure Enlive) 120 ml PO 4X/DAY [facility] Last Admin: 10/08/18 21:28 Dose: Not Given Documented by: Ondansetron HCl (Zofran) 4 mg IV Q6H PRN PRN PRN Reason: NAUSEA Last Admin: 10/07/18 11:05 Dose: 4 mg Documented by: Oxycodone HCl (Oxyir) 5 mg PO Q4H PRN PRN PRN Reason: SEVERE PAIN (6-01/07) Last Admin: 10/09/18 02:52 Dose: 5 mg Documented by: Polyethylene Glycol (Miralax) 17 gm PO DAILY [facility] Last Admin: 10/08/18 10:23 Dose: Not Given Documented by: Sodium Chloride () 10 - 40 ml IV UD PRN PRN Reason: SALINE FLUSH Last Admin: 10/07/18 11:05 Dose: 10 ml Documented by: Tamsulosin HCl (Flomax) 0.4 mg PO DAILY@1730 [facility] Last Admin: 10/08/18 17:19 Dose: 0.4 mg Documented by: Assessment/Plan All Active Problems (Last Reviewed 06/05/18 @ 13:40 by Fito Alcala MD) Acute respiratory failure with hypoxia (Acute) Pulmonary embolism (Acute) Dyspnea on exertion (Acute) LUQ abdominal pain (Acute) NSTEMI (non-ST elevated myocardial infarction) (Acute) H/O coronary artery bypass surgery (Resolved 09/12/00) History of coronary artery stent placement (Resolved 05/13/18) Cellulitis (Resolved) Cellulitis and abscess of left lower extremity (Resolved) Chest pain (Resolved) Right pulmonary embolus (Resolved) 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 (Resolved) 1. Acute hypoxic respiratory failure due to right sided submassive PE patient feeling much better. Now on 10L of oxygen by nasal canula on eliquis 10mg bid. 2D echo: Normal left ventricular size with moderate concentric left ventricular hypertrophy and normal systolic function. EF of 65% in stage II diastolic dysfunction. Left atrium and right atrium mildly enlarged. PA systolic pressure is 82mmhg. continue breathing treatments cardiology and pulmonology on board 2. Right-sided submassive PE: as under 1. 3. Chest pain: has improved. EKG showed no acute ST changes, and troponin was indeterminate likely due to pain from PE, severe pulmonary hypertension and probable lung infarct stable. 4. Epistaxis and hemoptysis, likely due to anticoagulation having mild epistaxis this morning brilinta discontinued; on aspirin and eliquis 5. Acute on chronic exacerbation of heart failure with preserved ejection fraction: EF is 65% from 2D echo, with stage 2 diastolic dysfunction on IV lasix 40mg bid; will switch to PO lasix 40mg bid. Fluid restriction to 1500 cc daily. Continue metoprolol 6. Severe pulmonary hypertension and cor pulmonale RVSP per echo was 82mmHg. Likely due to right sided PE as under 1. pulmonology on board on BIPAP and oxygen by nasal canula prn 7. CAD status post CABG and stent: Had drug-eluting stent placed in the RCA in May 2018 for NSTEMI. Subsequently had restenosis of recently placed stent. Currently on aspirin and Brilinta. Brilinta held after discussion with cardiology o/a of epistaxis and hemoptysis 8. Elevated troponin: EKG showed no acute ST changes. likely due to cardiac strain from PE on aspirin and statin. brilinta discontinued o/a of epistaxis 9. IBS: Stable 10. BPH: on flomax DVT prophylaxis: on therapeutic eliquis for PE Code status changed to DNRCCA yesterday Code Visit Inpatient E&M: 05329 [facility] Hosp L3
[2018-10-09] MEDS: Magnesium Oxide 400 MG Tablet PO (10:11)
[2018-10-09] MEDS: Isosorbide Mononitrate 60 MG Tablet PO (10:11)
[2018-10-09] MEDS: Furosemide 40 MG/4 ML Vial IV ×2 (10:11→18:29)
[2018-10-09] MEDS: Polyethylene Glycol 3350 17 GM PACKET PO (10:12)
[2018-10-09] MEDS: Metoprolol(XL)Succ 50 MG Tablet PO (10:12)
--- NOTE | 2018-10-09 11:13 | CPS ---
Sats at 83% upon entering the room. Patient had been on 10lpm High Flow Nasal Cannula. RN applying BiPAP. Assisted RN with placing patient on BiPAP. Patient had been having a nose bleed. Heated humidity added in-line on BiPAP, mask changed from Medium to Large. Patient did complain of soreness in cheek with Mask placement. Upper and Lower dentures removed, placed on counter.
--- NOTE | 2018-10-09 13:50 | CPS ---
Addendum entered by Bridgette Avery 10/09/18 15:14: Original Note: Patient refused BiPAP Mask. RN aware.
--- NOTE | 2018-10-09 13:50 | CPS ---
Patient refusing non rebreather mask, placed nasal cannula in mouth, left at the 10 lpm, sats at 92%. RN aware.
--- NOTE | 2018-10-09 13:55 | CPS ---
High flow nasal cannula in mouth.
--- NOTE | 2018-10-09 14:59 | CASEMGMT ---
SW spoke with patient's as patient was not feeling well. Patient's said their son is coming in from [place] tomorrow. D/C plan is tentatively TCU pending patient being medically ready. Green sheet is on the chart. Latricia JON MSW
[2018-10-09] MEDS: Tamsulosin HCl 0.4 MG Capsule PO (15:02)
--- NOTE | 2018-10-09 15:13 | CPS ---
Placed patient on Non Rebreather mask at 15lpm, sats quickly augustus into 90's.
[2018-10-09] MEDS: Atorvastatin Calcium 40 MG Tablet PO (21:01)
[2018-10-09] MEDS: Latanoprost 0.005% 1 Bottle 1 DRP EACH EYE (21:02)
--- NOTE | 2018-10-09 23:00 | CPS ---
pt refused bipap at this time
[2018-10-10] VITALS (13 sets, daily range): BP systolic 109–143; BP diastolic 51–67; PULSE 75–89; RESP 18–22; TEMP 36.7–37.4; O2SAT 92–100
[2018-10-10] MEDS: oxyCODONE 5 MG Tablet PO (04:07)
[2018-10-10] MEDS: Acetaminophen 500 MG Tablet 1000 MG PO ×3 (05:13→21:25)
--- NOTE | 2018-10-10 08:03 | PCM.PN.PUL ---
Patient Problems: Active and Suspected Problems (Last Reviewed 06/05/18 @ 13:40 by Fito Alcala MD) Acute respiratory failure with hypoxia (Acute) Pulmonary embolism (Acute) Subjective: Patient did okay overnight. Patient has been transitioned to a nonrebreather secondary to epistaxis. Patient has required BiPAP rescue overnight. No isaac hemoptysis has been reported. Did discuss with patient's son at the bedside extensively about goals of therapy and prognosis. Also discussed with Dr. Alcala and he will meet with the son also. - Physical Exam General: Alert, Cooperative, Disoriented, - - Poor vocalization. Appears weak. HEENT: Atraumatic, PERRLA, EOMI, Normocephalic, - - Slight scleral injection Oral: Moist Mucosa, No Gingival or Mucosal Lesions/ Ulcerations Neck: Supple, No JVD, No Nodes, Trachea Midline Lungs: Clear to auscultation, No rhonchi, No wheeze, No rales, - - Symmetric expansion. No dullness to percussion. Cardiovascular: Regular rate, Regular Rhythm, Normal S1, Normal S2, Murmur, No rub noted, No Gallop Abdomen: Bowel Sounds Present, Soft, Non Tender, Non-Distended Extremities: No cyanosis, Edema Skin: No rashes, No breakdown Musculoskeletal: No Tenderness to Palpation of Joints or Extremities Lymphatic: No Cervical, Supraclavicular, or Inguinal Adenopathy Neurological: Cranial nerves II-XII grossly intact, Neuro grossly intact Psych/Mental Status: Flat Affect, Restless Vital Signs Temp Pulse Resp BP Pulse Ox 36.9 C 80 18 122/60 H 100 10/10/18 02:59 10/10/18 03:04 10/10/18 02:59 10/10/18 02:59 10/10/18 02:59 Oxygen Flow Rate (L/min) 10 Oxygen Delivery Method Bi-pap Weight: 96.7 kg Body Mass Index (BMI) 33.5 Intake and Output for Last 24 Hours 10/08/18 10/09/18 10/10/18 23:59 23:59 23:59 Intake Total 850 / 850 930 / 930 240 / 240 Output Total 400 / 400 450 / 450 150 / 150 Balance 450 / 450 480 / 480 90 / 90 Assessment/Plan All Active Problems (Last Reviewed 06/05/18 @ 13:40 by Fito Alcala MD) Acute respiratory failure with hypoxia (Acute) Pulmonary embolism (Acute) Dyspnea on exertion (Acute) LUQ abdominal pain (Acute) NSTEMI (non-ST elevated myocardial infarction) (Acute) 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 Continue anticoagulation and monitor for increased bleeding 2. Wean supplemental oxygen as tolerated 3. Consider transition to Ventimask and wean to keep saturations 88 to 94% 4. Continue baseline diuretic therapy 5. Continue BiPAP with sleep and as needed during the day 6. Await family decision on goals of therapy 7. Continue PT/OT IMPRESSIONS: 1. Acute hypoxic respiratory failure secondary to submassive PE with cor pulmonale Patient was significantly elevated right-sided pressures noted on echocardiogram. This may be the etiology of slightly increased troponin and BNP given right ventricular strain. Patient's oxygenation demands have improved over the course of the hospitalization. Patient has had minimal bleeding complications. However, patient appears significantly weak secondary to immobility. Patient is being followed by PT/OT. Consider transition to a Ventimask to allow for titration of supplemental oxygen to avoid CO2 retention. 2. Borderline bronchiectasis with left-sided infiltrates Unclear etiology. Patient may have an underlying pulmonary pathology that is not previously recognized. Patient should have outpatient pulmonary function testing. Left-sided infiltrates may be secondary to pulmonary infarct versus CHF associated with cor pulmonale. Likely hold on any inhaler therapy as tachycardia may exacerbate underlying diastolic dysfunction. 3. Chronic diastolic congestive heart failure/CAD status post CABG and stents/elevated troponin Complicated by cor pulmonale. Agree with intermittent diuretic therapy. Continue rate control with metoprolol. Patient recently had a stent in May 2018, so aspirin and Brilinta should be continued. Clinical suspicion for perfusion mismatch secondary to RV strain more than an acute ischemic event. Patient will need a repeat echocardiogram in the future to show improvement in pulmonary artery pressures if patient remains aggressive. Guarded long-term prognosis. 4. Advanced age/IBS/BPH/chronic pain syndrome/hypercholesterolemia/glaucoma Complicates care, management, recovery and prognosis. Okay to continue with baseline medications from my perspective. Patient is reportedly refusing hospice at this time. Code Visit Inpatient E&M: 76866 Subs Hosp L3
[2018-10-10] MEDS: Multivitamins,Ther W-Minerals Tablet 1 TABLET PO (08:23)
[2018-10-10] MEDS: Aspirin 81 MG TAB.CHEW PO (08:23)
[2018-10-10] MEDS: Folic Acid 1 MG Tablet 0.5 MG PO (08:23)
--- NOTE | 2018-10-10 08:34 | PN.CARD_ITS ---
Subjectve: Patient seen and evaluated. Appears to be doing somewhat better. No bleeding at this time. Still feels quite weak. Objective: Vital Signs Temp Pulse Resp BP Pulse Ox 98.0 F 76 20 H 109/67 99 10/10/18 08:13 10/10/18 08:13 10/10/18 08:13 10/10/18 08:13 10/10/18 08:13 Oxygen Flow Rate (L/min) 14 Oxygen Delivery Method Non-Rebreather Weight: 213 lb 2.992 oz Body Mass Index (BMI) 33.5 Intake and Output for Last 24 Hours 10/08/18 10/09/18 10/10/18 23:59 23:59 23:59 Intake Total 850 / 850 930 / 930 240 / 240 Output Total 400 / 400 450 / 450 150 / 150 Balance 450 / 450 480 / 480 90 / 90 General: Awake, Alert, Oriented x 3, Ill Appearing HEENT: PERRL, EOMI, Sclera Non Icteric Neck: Supple, Good ROM, No Lymph Node Enlargement Lungs: Clear to auscultation Cardiovascular: Regular Rhythm, Normal S1, Normal S2, No Murmurs, No Rubs, No Gallops Vascular: No Carotid Bruits, Normal Femoral Pulses, Normal Radial Pulses, Normal Dorsalis Pedal Pulse, Normal Posterior Tibial Pulses Abdomen: Bowel Sounds Present, Soft, Non Tender, No HSM, No Organomegaly Extremities: No Cyanosis, No Clubbing, No edema Skin: No Rashes Lymphatic: No Lymph Node Enlargement Neurological: No Focal Motor or Sensory Deficit Psych/Mental Status: Appropriate Rhythm: EKG: ECHO: Stress Test: Cardiac Cath: PCI: CT Surgery: Holter monitor: EPS: PPM: CXR: Chest CT Scan: Assessment/Plan 1. Dyspnea on exertion Patient presents with dyspnea and is noted to have a pulmonary embolism. He will need to be anticoagulated per usual protocol but due to his epistaxis I would suggest that we discontinue his Brilinta at this particular time. His echocardiogram demonstrated significant elevation in his right ventricular pressures. This is likely responsible for his elevated troponin and natruretic peptide levels. We will continue the apixaban for now. His bleeding has improved and will continue his current regimen. 2. 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 No changes were made with the risk factor to his antianginal therapy. His Brilinta has been discontinued. 3. History of coronary artery stent placement Z95.5 PTCA/EASTON Anomalous LCX off of RCA with a 2.25 x 24 Promus Synergy and PTCA/EASTON of distal RCA in stent plaque protrusion with possible non occlusive thrombus w/ 3.5 x 32 Promus Synergy05/19/18 PTCA/EASTON distal RCA with a 3.5 x 38 Promus Syergy and EASTON mid RCA with a 4.0 x 32 Promus Synergy Stent 05/13/18 EASTON-Prox LAD w/ 3.5 mm x 20 mm Promus Stent 08/27/12 [id number] & proximal RCA 06/21/2002 He will continue the current treatment plan as outlined above. 4. 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 5. Essential (primary) hypertension I10 Plan Patient's blood pressure is well-controlled. This is also been monitored during cardiac rehab and been well controlled most days. We will continue to monitor. We will not make any medication regimen changes. Orders 6. Hyperlipidemia, unspecified hyperlipidemia type E78.5 Plan He will continue with current statin medication. I had a long discussion with his family who had just had a discussion with ladonna keen. At this time they have decided against that. It would be helpful to give him something to relieve his pain. I will however try and space out his OxyContin so that he is not so somnolent. Plans for extended care facility in [place]. 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 Stent apposition confirmed with IVUS before and after stent deployment. 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 Echocardiogram from 05/10/2018: Interpretation Summary The left atrium is mildly enlarged. Normal LV size. Mild concentric left ventricular hypertrophy. Left ventricular systolic function is normal. The estimated ejection fraction is 65 %. Pulmonary artery systolic pressure is 38 mmHg. Contrast injection was performed. Stress test from 10/15/2017: Conclusion: Pharmacologic myocardial perfusion stress test with no significant ischemia noted. Previous basal inferior infarct is present. Minimal humaira-infarct ischemia cannot be completely excluded. Preserved ejection fraction.
[2018-10-10] MEDS: Furosemide 40 MG Tablet PO (10:38)
[2018-10-10] MEDS: APIXABAN 5 MG TABLET 10 MG PO ×2 (10:39→21:25)
[2018-10-10] MEDS: 0.9% NaCl Peripheral Flush Adult/Peds IV (10:39)
[2018-10-10] MEDS: Isosorbide Mononitrate 60 MG Tablet PO (10:39)
[2018-10-10] MEDS: Magnesium Oxide 400 MG Tablet PO (10:40)
[2018-10-10] MEDS: Polyethylene Glycol 3350 17 GM PACKET PO (10:40)
[2018-10-10] MEDS: Loratadine 10 MG Tablet PO (10:40)
[2018-10-10] MEDS: Metoprolol(XL)Succ 50 MG Tablet PO (10:41)
--- NOTE | 2018-10-10 11:31 | PCM.PN.HOSP ---
Patient Problems: Active and Suspected Problems (Last Reviewed 06/05/18 @ 13:40 by Fito Alcala MD) Acute respiratory failure with hypoxia (Acute) Pulmonary embolism (Acute) Subjective: Patient seen and examined. He still looks frail but did look a bit better than previously. He has been transitioned to a nonrebreather mask on account of epistasis. He had no epistasis at time of review. He complained of feeling tired. Chest pain or however better review of systems otherwise negative. His son was by his bedside. Extensive discussion had with son about patient's presentation, hospital course and goals of care. Patient aware that patient had refused hospice. Son question whether he could take his father back to [place] where the son lives with her father could be closer to him. Hospitalist counseled son that in light of patient's severe debility and illness, would not be a good idea to transport him to [place] by car and was unlikely in commercial airline would fly him in his state. Son agreeable to keeping his father in the hospital urine was different. Patient was also interested in the various nursing homes that were available. Counseled that case management is good inform him better about these nursing homes. Vitals reviewed. Vitals/I&O's: Vital Signs Temp Pulse Resp BP Pulse Ox 98.0 F 89 20 H 109/67 99 10/10/18 08:13 10/10/18 11:11 10/10/18 08:13 10/10/18 08:13 10/10/18 08:13 Oxygen Flow Rate (L/min) 10 Oxygen Delivery Method Nasal Cannula Weight: 213 lb 2.992 oz Body Mass Index (BMI) 33.5 Intake and Output for Last 24 Hours 10/08/18 10/09/18 10/10/18 23:59 23:59 23:59 Intake Total 850 / 850 930 / 930 240 / 240 Output Total 400 / 400 450 / 450 150 / 150 Balance 450 / 450 480 / 480 90 / 90 General: Alert, Oriented x3, Cooperative, No apparent distress, still very frail and tired looking. HEENT: Atraumatic, PERRLA, EOMI, Normocephalic Oral: Moist Mucosa Neck: Supple, No JVD, Negative Carotid Bruits Lungs: - - off BIPAP. Decreased breath sounds bibasally.on oxygen by nonrebreather facemask Cardiovascular: Regular rate, Regular Rhythm, Normal S1, Normal S2, No murmurs Abdomen: Bowel Sounds Present, Soft, Non Tender Extremities: No clubbing, No cyanosis, Capillary Refill Less than 3 Seconds, - -edema of LE has resolved. Skin: No rashes, No breakdown Musculoskeletal: No Tenderness to Palpation of Joints or Extremities Lymphatic: No Cervical, Supraclavicular, or Inguinal Adenopathy Neurological: Cranial nerves II-XII grossly intact, Neuro grossly intact, Motor Exam 5/5 strength throughout Psych/Mental Status: Normal Affect, Appropriate, Alert and oriented to time, place, person, mood and affect Current Medications Acetaminophen (Tylenol) 650 mg PO Q6H PRN PRN PRN Reason: Mild Pain (0-2/10) Last Admin: 10/06/18 11:21 Dose: 650 mg Documented by: Acetaminophen (Tylenol) 1,000 mg PO Q8 [facility] Last Admin: 10/10/18 05:13 Dose: 1,000 mg Documented by: Apixaban (Eliquis) 10 mg PO BID [facility] Last Admin: 10/10/18 10:39 Dose: 10 mg Documented by: Aspirin (Aspirin, Baby) 81 mg PO DAILY@0800 [facility] Last Admin: 10/10/18 08:23 Dose: 81 mg Documented by: Atorvastatin Calcium (Lipitor) 40 mg PO QHS [facility] Last Admin: 10/09/18 21:01 Dose: 40 mg Documented by: Dextrose (D50w Syringe) 0 gm IV X1 PRN; Protocol PRN Reason: Hypoglycemia Folic Acid (Folic Acid) 0.5 mg PO DAILY@0800 [facility] Last Admin: 10/10/18 08:23 Dose: 0.5 mg Documented by: Furosemide (Lasix) 40 mg PO DAILY [facility] Last Admin: 10/10/18 10:38 Dose: 40 mg Documented by: Glucagon () 1 mg IM .X1 PRN PRN Reason: Hypoglycemia Isosorbide Mononitrate (Imdur) 60 mg PO DAILY [facility] Last Admin: 10/10/18 10:39 Dose: 60 mg Documented by: Latanoprost (Xalatan Opthalmic) 1 drop EACH EYE QHS [facility] Last Admin: 10/09/18 21:02 Dose: 1 drop Documented by: Loratadine (Claritin) 10 mg PO DAILY [facility] Last Admin: 10/10/18 10:40 Dose: 10 mg Documented by: Magnesium Oxide (Mag-Ox 400) 400 mg PO DAILY [facility] Last Admin: 10/10/18 10:40 Dose: 400 mg Documented by: Metoprolol Succinate (Toprol Xl (Beta Luis Felipe)) 50 mg PO DAILY [facility] Last Admin: 10/10/18 10:41 Dose: 50 mg Documented by: Multivitamins/Minerals (Multivitamin With Minerals) 1 tablet PO DAILY@0800 [facility] Last Admin: 10/10/18 08:23 Dose: 1 tablet Documented by: Nitroglycerin (Nitrostat) 0.4 mg SUBLINGUAL Q5M PRN PRN Reason: CARDIAC/CHEST PAIN Last Admin: 10/08/18 07:02 Dose: 1 tab Documented by: Nutritional Formula (Lactose Free) (Ensure Enlive) 120 ml PO 4X/DAY [facility] Last Admin: 10/10/18 10:38 Dose: 120 ml Documented by: Ondansetron HCl (Zofran) 4 mg IV Q6H PRN PRN PRN Reason: NAUSEA Last Admin: 10/07/18 11:05 Dose: 4 mg Documented by: Oxycodone HCl (Oxyir) 5 mg PO Q4H PRN PRN PRN Reason: SEVERE PAIN (6-10/10) Last Admin: 10/10/18 04:07 Dose: 5 mg Documented by: Polyethylene Glycol (Miralax) 17 gm PO DAILY [facility] Last Admin: 10/10/18 10:40 Dose: 17 gm Documented by: Sodium Chloride () 10 - 40 ml IV UD PRN PRN Reason: SALINE FLUSH Last Admin: 10/10/18 10:39 Dose: 30 ml Documented by: Tamsulosin HCl (Flomax) 0.4 mg PO DAILY@1730 [facility] Last Admin: 10/09/18 15:02 Dose: 0.4 mg Documented by: Assessment/Plan All Active Problems (Last Reviewed 06/05/18 @ 13:40 by Fito Alcala MD) Acute respiratory failure with hypoxia (Acute) Pulmonary embolism (Acute) Dyspnea on exertion (Acute) LUQ abdominal pain (Acute) NSTEMI (non-ST elevated myocardial infarction) (Acute) H/O coronary artery bypass surgery (Resolved 09/12/00) History of coronary artery stent placement (Resolved 05/13/18) Cellulitis (Resolved) Cellulitis and abscess of left lower extremity (Resolved) Chest pain (Resolved) Right pulmonary embolus (Resolved) 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 (Resolved) 1. Acute hypoxic respiratory failure due to right sided submassive PE on eliquis 10mg bid. 2D echo: Normal left ventricular size with moderate concentric left ventricular hypertrophy and normal systolic function. EF of 65% in stage II diastolic dysfunction. Left atrium and right atrium mildly enlarged. PA systolic pressure is 82mmhg. continue breathing treatments; now transitioned to oxygen by nonrebreather mask o.a o epistaxis. requires rescue BIPAP prn and especially at night cardiology and pulmonology on board 2. Right-sided submassive PE: as under 1. 3. Chest pain: resolved. 4. Epistaxis and hemoptysis, likely due to anticoagulation has improved. now on nonrebreather mask to help with epistaxis brilinta discontinued; on aspirin and eliquis 5. Acute on chronic exacerbation of heart failure with preserved ejection fraction: EF is 65% from 2D echo, with stage 2 diastolic dysfunction on IV lasix 40mg bid; will switch to PO lasix 40mg bid. Fluid restriction to 1500 cc daily. Continue metoprolol 6. Severe pulmonary hypertension and cor pulmonale RVSP per echo was 82mmHg. Likely due to right sided PE as under 1. pulmonology on board on BIPAP and oxygen by nasal canula prn 7. CAD status post CABG and stent: Had drug-eluting stent placed in the RCA in May 2018 for NSTEMI. Subsequently had restenosis of recently placed stent. Brilinta held after discussion with cardiology o/a of epistaxis and hemoptysis on aspirin 8. IBS: Stable 9. BPH: on flomax DVT prophylaxis: on therapeutic eliquis for PE Code status changed to DNRCCA Code Visit Inpatient E&M: 60[address] [facility] L3
[2018-10-10] MEDS: Tamsulosin HCl 0.4 MG Capsule PO (18:24)
--- NOTE | 2018-10-10 21:08 | EKG12_ITS ---
Test Reason : CP Blood Pressure : / mmHG Vent. Rate : 080 BPM Atrial Rate : 080 BPM P-R Int : 176 ms QRS Dur : 110 ms QT Int : 406 ms P-R-T Axes : 009 -43 -09 degrees QTc Int : 468 ms Sinus rhythm with Premature atrial complexes Left axis deviation Incomplete right bundle branch block Moderate voltage criteria for LVH, may be normal variant Nonspecific T wave abnormality Confirmed by ALEXANDER GARZON, KWESI ([id number]), editorial cartoonist KULWANT ZARCO ([id number]) on 10/14/2018 11:20:48 AM Referred By: KYREE Confirmed By:KWESI MUNOZ MD
[2018-10-10] MEDS: Atorvastatin Calcium 40 MG Tablet PO (21:25)
[2018-10-10] MEDS: Latanoprost 0.005% 1 Bottle 1 DRP EACH EYE (21:26)
[2018-10-11] VITALS (18 sets, daily range): BP systolic 119–144; BP diastolic 52–71; PULSE 64–84; RESP 12–28; TEMP 36.6–37.1; O2SAT 35–99
--- NOTE | 2018-10-11 04:21 | CPS ---
pt refuses bipap
[2018-10-11] MEDS: Acetaminophen 500 MG Tablet 1000 MG PO ×3 (05:15→21:03)
--- NOTE | 2018-10-11 06:23 | NURSING ---
This RN received call from lab stating patient refused his morning labs.
--- NOTE | 2018-10-11 08:31 | PN.CARD_ITS ---
Subjectve: Patient seen and evaluated. Overall looks okay. Feels very weak. Objective: Vital Signs Temp Pulse Resp BP Pulse Ox 98.8 F 76 20 H 128/64 H 92 10/11/18 03:00 10/11/18 07:21 10/11/18 03:00 10/11/18 03:00 10/11/18 08:04 Oxygen Flow Rate (L/min) 8 Oxygen Delivery Method Venturi Mask Weight: 214 lb 1.102 oz Body Mass Index (BMI) 33.5 Intake and Output for Last 24 Hours 10/09/18 10/10/18 10/11/18 23:59 23:59 23:59 Intake Total 930 / 930 1130 / 1130 Output Total 450 / 450 850 / 850 Balance 480 / 480 280 / 280 General: Awake, Alert, Oriented x 3 HEENT: PERRL, EOMI, Sclera Non Icteric Neck: Supple, Good ROM, No Lymph Node Enlargement Lungs: Diminished Donal Bases Cardiovascular: Regular Rhythm, Normal S1, Normal S2, No Murmurs, No Rubs, No Gallops Vascular: No Carotid Bruits, Normal Femoral Pulses, Normal Radial Pulses, Normal Dorsalis Pedal Pulse, Normal Posterior Tibial Pulses Abdomen: Bowel Sounds Present, Soft, Non Tender, No HSM, No Organomegaly Extremities: No Cyanosis, No Clubbing, No edema Musculoskeletal: No Erythema Skin: No Rashes Lymphatic: No Lymph Node Enlargement Neurological: No Focal Motor or Sensory Deficit Psych/Mental Status: Appropriate 10/10/18 21:09: Troponin I 0.061 H Rhythm: EKG: ECHO: Stress Test: Cardiac Cath: PCI: CT Surgery: Holter monitor: EPS: PPM: CXR: Chest CT Scan: Assessment/Plan 1. Dyspnea on exertion Patient presents with dyspnea and is noted to have a pulmonary embolism. He will need to be anticoagulated per usual protocol but due to his epistaxis I would suggest that we discontinue his Brilinta at this particular time. His echocardiogram demonstrated significant elevation in his right ventricular pressures. This is likely responsible for his elevated troponin and natruretic peptide levels. We will continue the apixaban for now. His bleeding has i mproved and will continue his current regimen. Patient should be encouraged to sit up in chair. 2. 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 No changes were made with the risk factor to his antianginal therapy. His Brilinta has been discontinued. 3. History of coronary artery stent placement Z95.5 PTCA/EASTON Anomalous LCX off of RCA with a 2.25 x 24 Promus Synergy and PTCA/EASTON of distal RCA in stent plaque protrusion with possible non occlusive thrombus w/ 3.5 x 32 Promus Synergy05/19/18 PTCA/EASTON distal RCA with a 3.5 x 38 Promus Syergy and EASTON mid RCA with a 4.0 x 32 Promus Synergy Stent 05/13/18 EASTON-Prox LAD w/ 3.5 mm x 20 mm Promus Stent 08/27/12 [id number] & proximal RCA 06/21/2002 He will continue the current treatment plan as outlined above. 4. 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 5. Essential (primary) hypertension I10 Plan Patient's blood pressure is well-controlled. This is also been monitored during cardiac rehab and been well controlled most days. We will continue to monitor. We will not make any medication regimen changes. Orders 6. Hyperlipidemia, unspecified hyperlipidemia type E78.5 Plan He will continue with current statin medication. I had a long discussion with his family who had just had a discussion with hospice. At this time they have decided against that. It would be helpful to give him something to relieve his pain. I will however try and space out his OxyContin so that he is not so somnolent. Plans for extended care facility in [place]. 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 Stent apposition confirmed with IVUS before and after stent deployment. 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 Echocardiogram from 05/10/2018: Interpretation Summary The left atrium is mildly enlarged. Normal LV size. Mild concentric left ventricular hypertrophy. Left ventricular systolic function is normal. The estimated ejection fraction is 65 %. Pulmonary artery systolic pressure is 38 mmHg. Contrast injection was performed. Stress test from 10/15/2017: Conclusion: Pharmacologic myocardial perfusion stress test with no significant ischemia noted. Previous basal inferior infarct is present. Minimal humaira-infarct ischemia cannot be completely excluded. Preserved ejection fraction.
--- NOTE | 2018-10-11 09:20 | PCM.PN.PUL ---
Patient Problems: Active and Suspected Problems (Last Reviewed 06/05/18 @ 13:40 by Fito Alcala MD) Acute respiratory failure with hypoxia (Acute) Pulmonary embolism (Acute) Subjective: Patient did okay overnight. Patient continues to be on BiPAP and high nasal cannula to maintain saturations. Patient was found with supplemental oxygen off and complaining of chest pain. This rapidly improved with placement of nasal cannula and improvement in saturations to 90%. Patient reports mild hemoptysis and epistaxis, but has not required any suctioning. Patient appears to be somewhat confused this morning and is unable to tell me if he was out of bed yesterday. Objective: Morning labs have been ordered, but not obtained at the time of this note. - Physical Exam General: Alert, Cooperative, Confused, - - Mild conversational dyspnea. HEENT: Atraumatic, PERRLA, EOMI, Normocephalic, - - No scleral icterus or injection noted. Oral: Moist Mucosa, No Gingival or Mucosal Lesions/ Ulcerations Neck: Supple, No Nodes, Trachea Midline, JVD, Right Lungs: No rhonchi, No wheeze, No rales, Diminished, - - Symmetric expansion. No dullness to percussion. Cardiovascular: Normal S1, Normal S2, Irregular Rate, Murmur, No rub noted, No Gallop Abdomen: Bowel Sounds Present, Soft, Non Tender, Distended - Slightly, Obese Extremities: No cyanosis, Capillary Refill Less than 3 Seconds, Clubbing, Edema Skin: No rashes, No breakdown Musculoskeletal: No Tenderness to Palpation of Joints or Extremities Lymphatic: No Cervical, Supraclavicular, or Inguinal Adenopathy Neurological: Cranial nerves II-XII grossly intact, Neuro grossly intact, Motor Exam 5/5 strength throughout Psych/Mental Status: Flat Affect, Restless Vital Signs Temp Pulse Resp BP Pulse Ox 37.1 C 76 20 H 128/64 H 92 10/11/18 03:00 10/11/18 07:21 10/11/18 03:00 10/11/18 03:00 10/11/18 08:04 Oxygen Flow Rate (L/min) 8 Oxygen Delivery Method Venturi Mask Weight: 97.1 kg Body Mass Index (BMI) 33.5 Intake and Output for Last 24 Hours 10/09/18 10/10/18 10/11/18 23:59 23:59 23:59 Intake Total 930 / 930 1130 / 1130 Output Total 450 / 450 850 / 850 Balance 480 / 480 280 / 280 Laboratory Tests Past 24 Hrs 10/10/18 21:09 Troponin I 0.061 H Assessment/Plan All Active Problems (Last Reviewed 06/05/18 @ 13:40 by Fito Alcala MD) Acute respiratory failure with hypoxia (Acute) Pulmonary embolism (Acute) Dyspnea on exertion (Acute) LUQ abdominal pain (Acute) NSTEMI (non-ST elevated myocardial infarction) (Acute) 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 Continue anticoagulation and monitor for increased bleeding 2. Wean supplemental oxygen as tolerated 3. Transition to Ventimask and wean to keep saturations 88 to 94% 4. Continue baseline diuretic therapy 5. Continue BiPAP with sleep and as needed during the day 6. Await family decision on goals of therapy 7. Continue PT/OT 8. Await morning labs, obtain chest x-ray for tomorrow morning 9. No indication for transfer to the intensive care unit at this time IMPRESSIONS: 1. Acute hypoxic respiratory failure secondary to submassive PE with cor pulmonale Patient was significantly elevated right-sided pressures noted on echocardiogram. This may be the etiology of slightly increased troponin and BNP given right ventricular strain. Patient's oxygenation demands have improved slowly over the course of the hospitalization. Patient has had minimal bleeding complications. However, patient appears significantly weak secondary to immobility. Some concern the patient may have a concomitant atelectasis complicating recovery. Patient is being followed by PT/OT. Consider transition to a Ventimask to allow for titration of supplemental oxygen to avoid CO2 retention. 2. Borderline bronchiectasis with left-sided infiltrates Unclear etiology. Patient may have an underlying pulmonary pathology that is not previously recognized. Patient should have outpatient pulmonary function testing. Left-sided infiltrates may be secondary to pulmonary infarct versus CHF associated with cor pulmonale. Reasonable to add bronchodilators at this time. Possibly add vest therapy if atelectasis or collapse noted on chest x-ray 3. Chronic diastolic congestive heart failure/CAD status post CABG and stents/elevated troponin Complicated by cor pulmonale. Agree with intermittent diuretic therapy. Continue rate control with metoprolol. Patient recently had a stent in May 2018, so aspirin and Brilinta should be continued. Clinical suspicion for perfusion mismatch secondary to RV strain more than an acute ischemic event. Patient will need a repeat echocardiogram in the future to show improvement in pulmonary artery pressures if patient remains aggressive. Guarded long-term prognosis. 4. Advanced age/IBS/BPH/chronic pain syndrome/hypercholesterolemia/glaucoma Complicates care, management, recovery and prognosis. Okay to continue with baseline medications from my perspective. Patient is reportedly refusing hospice at this time. Code Visit Inpatient E&M: 11589 Subs Hosp L3
[2018-10-11] MEDS: Polyethylene Glycol 3350 17 GM PACKET PO (09:36)
[2018-10-11] MEDS: Aspirin 81 MG TAB.CHEW PO (09:37)
[2018-10-11] MEDS: Folic Acid 1 MG Tablet 0.5 MG PO (09:38)
[2018-10-11] MEDS: Multivitamins,Ther W-Minerals Tablet 1 TABLET PO (09:38)
[2018-10-11] MEDS: APIXABAN 5 MG TABLET 10 MG PO ×2 (09:39→21:03)
[2018-10-11] MEDS: Isosorbide Mononitrate 60 MG Tablet PO (09:39)
[2018-10-11] MEDS: Loratadine 10 MG Tablet PO (09:39)
[2018-10-11] MEDS: Magnesium Oxide 400 MG Tablet PO (09:40)
[2018-10-11] MEDS: Metoprolol(XL)Succ 50 MG Tablet PO (09:40)
[2018-10-11] MEDS: Furosemide 40 MG Tablet PO (09:43)
--- NOTE | 2018-10-11 10:11 | PN_ITS ---
Patient Problems: Active and Suspected Problems (Last Reviewed 06/05/18 @ 13:40 by Fito Alcala MD) Acute respiratory failure with hypoxia (Acute) Pulmonary embolism (Acute) Subjective: Patient seen and examined. He still looks very frail and debilitated. He complains of some mild chest pain this morning. He was on nasal cannula oxygen at 8 L today. Review of systems otherwise negative. Vitals/I&O's: Vital Signs Temp Pulse Resp BP Pulse Ox 97.8 F 74 20 H 119/63 94 10/11/18 09:20 10/11/18 09:40 10/11/18 09:20 10/11/18 09:20 10/11/18 09:20 Oxygen Flow Rate (L/min) 8 Oxygen Delivery Method Venturi Mask Weight: 214 lb 1.102 oz Body Mass Index (BMI) 33.5 Intake and Output for Last 24 Hours 10/09/18 10/10/18 10/11/18 23:59 23:59 23:59 Intake Total 930 / 930 1130 / 1130 Output Total 450 / 450 850 / 850 Balance 480 / 480 280 / 280 General: Alert, Oriented x3, Cooperative, No apparent distress, still very frail and debilitated HEENT: Atraumatic, PERRLA, EOMI, Normocephalic Oral: Moist Mucosa Neck: Supple, No JVD, Negative Carotid Bruits Lungs: - - off BIPAP. Decreased breath sounds bibasally.on oxygen by nasal canula Cardiovascular: Regular rate, Regular Rhythm, Normal S1, Normal S2, No murmurs Abdomen: Bowel Sounds Present, Soft, Non Tender Extremities: No clubbing, No cyanosis, Capillary Refill Less than 3 Seconds, no edema Skin: No rashes, No breakdown Musculoskeletal: No Tenderness to Palpation of Joints or Extremities Lymphatic: No Cervical, Supraclavicular, or Inguinal Adenopathy Neurological: Cranial nerves II-XII grossly intact, Neuro grossly intact, Motor Exam 5/5 strength throughout Psych/Mental Status: Normal Affect, Appropriate, Alert and oriented to time, place, person, mood and affect Laboratory Results 10/10/18 21:09: Troponin I 0.061 H Current Medications Acetaminophen (Tylenol) 650 mg PO Q6H PRN PRN PRN Reason: Mild Pain (0-2/10) Last Admin: 10/06/18 11:21 Dose: 650 mg Documented by: Acetaminophen (Tylenol) 1,000 mg PO Q8 [facility] Last Admin: 10/11/18 05:15 Dose: 1,000 mg Documented by: Apixaban (Eliquis) 10 mg PO BID [facility] Last Admin: 10/11/18 09:39 Dose: 10 mg Documented by: Aspirin (Aspirin, Baby) 81 mg PO DAILY@0800 [facility] Last Admin: 10/11/18 09:37 Dose: 81 mg Documented by: Atorvastatin Calcium (Lipitor) 40 mg PO QHS [facility] Last Admin: 10/10/18 21:25 Dose: 40 mg Documented by: Dextrose (D50w Syringe) 0 gm IV X1 PRN; Protocol PRN Reason: Hypoglycemia Folic Acid (Folic Acid) 0.5 mg PO DAILY@0800 [facility] Last Admin: 10/11/18 09:38 Dose: 0.5 mg Documented by: Furosemide (Lasix) 40 mg PO DAILY [facility] Last Admin: 10/11/18 09:43 Dose: 40 mg Documented by: Glucagon () 1 mg IM .X1 PRN PRN Reason: Hypoglycemia Isosorbide Mononitrate (Imdur) 60 mg PO DAILY [facility] Last Admin: 10/11/18 09:39 Dose: 60 mg Documented by: Latanoprost (Xalatan Opthalmic) 1 drop EACH EYE QHS [facility] Last Admin: 10/10/18 21:26 Dose: 1 drop Documented by: Loratadine (Claritin) 10 mg PO DAILY [facility] Last Admin: 10/11/18 09:39 Dose: 10 mg Documented by: Magnesium Oxide (Mag-Ox 400) 400 mg PO DAILY [facility] Last Admin: 10/11/18 09:40 Dose: 400 mg Documented by: Metoprolol Succinate (Toprol Xl (Beta Luis Felipe)) 50 mg PO DAILY [facility] Last Admin: 10/11/18 09:40 Dose: 50 mg Documented by: Multivitamins/Minerals (Multivitamin With Minerals) 1 tablet PO DAILY@0800 [facility] Last Admin: 10/11/18 09:38 Dose: 1 tablet Documented by: Nitroglycerin (Nitrostat) 0.4 mg SUBLINGUAL Q5M PRN PRN Reason: CARDIAC/CHEST PAIN Last Admin: 10/08/18 07:02 Dose: 1 tab Documented by: Nutritional Formula (Lactose Free) (Ensure Enlive) 120 ml PO 4X/DAY [facility] Last Admin: 10/11/18 09:37 Dose: 120 ml Documented by: Ondansetron HCl (Zofran) 4 mg IV Q6H PRN PRN PRN Reason: NAUSEA Last Admin: 10/07/18 11:05 Dose: 4 mg Documented by: Oxycodone HCl (Oxyir) 5 mg PO Q4H PRN PRN PRN Reason: SEVERE PAIN (6-10/10) Last Admin: 10/10/18 04:07 Dose: 5 mg Documented by: Polyethylene Glycol (Miralax) 17 gm PO DAILY [facility] Last Admin: 10/11/18 09:36 Dose: 17 gm Documented by: Sodium Chloride () 10 - 40 ml IV UD PRN PRN Reason: SALINE FLUSH Last Admin: 10/10/18 10:39 Dose: 30 ml Documented by: Tamsulosin HCl (Flomax) 0.4 mg PO DAILY@1730 [facility] Last Admin: 10/10/18 18:24 Dose: 0.4 mg Documented by: Assessment/Plan All Active Problems (Last Reviewed 06/05/18 @ 13:40 by Fito Alcala MD) Acute respiratory failure with hypoxia (Acute) Pulmonary embolism (Acute) Dyspnea on exertion (Acute) LUQ abdominal pain (Acute) NSTEMI (non-ST elevated myocardial infarction) (Acute) H/O coronary artery bypass surgery (Resolved 09/12/00) History of coronary artery stent placement (Resolved 05/13/18) Cellulitis (Resolved) Cellulitis and abscess of left lower extremity (Resolved) Chest pain (Resolved) Right pulmonary embolus (Resolved) 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 (Resolved) 1. Acute hypoxic respiratory failure due to right sided submassive PE * on eliquis 10mg bid. * 2D echo: Normal left ventricular size with moderate concentric left ventricular hypertrophy and normal systolic function. EF of 65% in stage II diastolic dysfunction. Left atrium and right atrium mildly enlarged. PA systolic pressure is 82mmhg. * on BIPAP prn and oxygen by nasal canula. Requiring 8L of oxygen. * cardiology and pulmonology on board * 2. Right-sided submassive PE: * as under 1. * 3. Chest pain: * had some mild chest pain this morning, but this resolved after his oxygen was put back on. * will monitor * on tylenol and oxycodone for pain 4. Epistaxis and hemoptysis, likely due to anticoagulation * has improved. * brilinta discontinued; on aspirin and eliquis 5. Acute on chronic exacerbation of heart failure with preserved ejection fraction: * EF is 65% from 2D echo, with stage 2 diastolic dysfunction * on IV lasix 40mg bid; will switch to PO lasix 40mg daily * Fluid restriction to 1500 cc daily. * Continue metoprolol * 6. Severe pulmonary hypertension and cor pulmonale * RVSP per echo was 82mmHg. Likely due to right sided PE * as under 1. * pulmonology on board * on BIPAP and oxygen by nasal canula prn * 7. CAD status post CABG and stent: * Had drug-eluting stent placed in the RCA in May 2018 for NSTEMI. Subsequently had restenosis of recently placed stent. * Brilinta on dc'd due to * on aspirin, statin and metoprolol as well as Imdur. * 8. IBS: Stable 9. BPH: on flomax DVT prophylaxis: on therapeutic eliquis for PE Code status: DNRCCA. Patient evaluated by hospice and refused hospice care. Code Visit Inpatient E&M: 49484 Subs Hosp L3
[2018-10-11 18:38] LABS: Anion Gap 6 (5-15); BUN 39 mg/dL (7-18); BUN/Creat Ratio 31.2 RATIO (10-20); Calcium,Total 9.2 mg/dL (8.5-10.1); Chloride 99 mmol/L (98-107); Creatinine, Serum 1.25 mg/dL (0.70-1.30); EST Glomerular Filtration Rate 59 mL/min (>60); Est Glom Filt Rate - Afr Amer 71 mL/min (>60); Glucose 126 mg/dL (74-106); Potassium 4.8 mmol/L (3.5-5.1); Sodium Level 133 mmol/L (136-145)
[2018-10-11] MEDS: Tamsulosin HCl 0.4 MG Capsule PO (18:44)
[2018-10-11 19:07] LABS: Absolute Lymphocyte Count 1.62 X10^3/ul (0.83-4.51); Absolute Neutrophil Count 7.9 X10^3/uL (2.0-7.7); Basophil# 0.01 X10^3/uL; Basophil% 0.1 % (0-1); Eosinophil# 0.22 X10^3/uL; Eosinophils% 2.2 % (0-5); Hematocrit 28.4 % (40-54); Hemoglobin 9.5 g/dl (13.0-16.5); Lymphocyte # 1.62 X10^3/ul (4.0); Lymphocyte % 15.9 % (19-41); Mean Corp Hgb Conc 33.5 g/gl (32-36); Mean Corpuscular Hgb 26.8 pg (27.0-32.0); Mean Corpuscular Volume 80.2 fL (80-94); Mean Platelet Vol. 10.4 fl (6.2-12.0); Monocyte# 0.36 X10^3/uL; Monocyte% 3.5 % (0-10); Neutrophil # 7.93 X10^3/uL (2.7-7.7); Neutrophil % 78.1 % (47-70); Platelet Count 317 K/mm3 (150-450); RBC Distribution Width CV 18.5 % (11.6-14.6); RBC Distribution Width SD 54.1 fl (35.1-43.9); Red Blood Count 3.54 M/mm3 (4.6-6.2); White Blood Count 10.2 K/mm3 (4.4-11.0)
[2018-10-11 19:16] LABS: POSITIVE COUNT NO; POSITIVE DIFFERENTIAL NO; POSITIVE MORPHOLOGY NO
[2018-10-11] MEDS: Atorvastatin Calcium 40 MG Tablet PO (21:03)
[2018-10-11] MEDS: Latanoprost 0.005% 1 Bottle 1 DRP EACH EYE (21:04)
--- NOTE | 2018-10-11 22:40 | CPS ---
decreased FIO2 to 30%
[2018-10-12] VITALS (17 sets, daily range): BP systolic 102–128; BP diastolic 53–77; PULSE 68–87; RESP 12–25; TEMP 36.4–37.3; O2SAT 35–98
--- NOTE | 2018-10-12 05:55 | RAD_ITS ---
STUDY: X-RAY CHEST REASON FOR EXAM: Male, 83 years old. Shortness of breath. TECHNIQUE: AP and lateral views of the chest. COMPARISON: Comparison is made with prior study dated October 04, 2018. FINDINGS: EKG electrodes are seen. There is now evidence of infiltrate in the lateral aspect of the right lower lobe abutting the minor fissure. Mild increased markings at the left lung base as well. Sternal cerclage wires and vascular clips are present from a prior sternotomy and coronary artery bypass graft procedure (CABG). Moderate cardiomegaly. Normal mediastinum and donnie. Normal visualized pulmonary arteries. There is atherosclerotic calcification of the aortic arch with tortuosity. There are diffuse degenerative changes of the visualized thoracic spine. There is degenerative osteoarthritis of the bilateral shoulders. There is no demonstrated abnormality of the visualized soft tissue structures of the upper abdomen. RAD/Chest PA and Lateral IMPRESSION: Infiltrate in the peripheral aspect of the right lower lobe. Follow-up is recommended. Electronically Signed: Monico Sherman, at 11:25 EDT , Service support ,
[2018-10-12] MEDS: Acetaminophen 500 MG Tablet 1000 MG PO ×2 (06:14→13:08)
--- NOTE | 2018-10-12 07:33 | PN_ITS ---
Patient Problems: Active and Suspected Problems (Last Reviewed 06/05/18 @ 13:40 by Fito Alcala MD) Acute respiratory failure with hypoxia (Acute) Pulmonary embolism (Acute) Subjective: The patient was seen and examined at the bedside this morning. Events from the last 24 hours have been reviewed. The patient is currently afebrile, hemodynamically stable and maintaining appropriate oxygen saturations on 5 L/min via nasal cannula. The patient's family is present at the bedside. Objective: The patient's most recent lab work, culture data and imaging studies have all been personally reviewed. - Physical Exam General: Alert, Cooperative, No apparent distress HEENT: Atraumatic, PERRLA, Normocephalic Oral: No Gingival or Mucosal Lesions/ Ulcerations Neck: Supple, No Nodes, Trachea Midline Lungs: No rhonchi, No wheeze, No rales, Diminished Cardiovascular: Normal S1, Normal S2, Irregular Rate, Murmur Abdomen: Bowel Sounds Present, Soft, Non Tender, Obese Extremities: No clubbing, No cyanosis, Edema Skin: No breakdown Musculoskeletal: No Tenderness to Palpation of Joints or Extremities Lymphatic: No Cervical, Supraclavicular, or Inguinal Adenopathy Neurological: Neuro grossly intact Psych/Mental Status: Flat Affect Vital Signs Temp Pulse Resp BP Pulse Ox 97.5 F L 74 25 H 128/59 H 98 10/12/18 03:25 10/12/18 04:48 10/12/18 04:48 10/12/18 03:25 10/12/18 04:48 Oxygen Flow Rate (L/min) 5 Oxygen Delivery Method Nasal Cannula Weight: 216 lb 4.375 oz Body Mass Index (BMI) 33.5 Intake and Output for Last 24 Hours 10/10/18 10/11/18 10/12/18 23:59 23:59 23:59 Intake Total 1130 / 1130 450 / 570 180 / 180 Output Total 850 / 850 200 / 200 Balance 280 / 280 450 / 370 -20 / -20 Laboratory Tests Past 24 Hrs 10/11/18 10/11/18 18:10 18:10 WBC 10.2 RBC 3.54 L Hgb 9.5 L Hct 28.4 L MCV 80.2 MCH 26.8 L MCHC 33.5 RDW 18.5 H RDW Differential 54.1 H Plt Count 317 MPV 10.4 Immature Gran % (Auto) 0.200 Neut % (Auto) 78.1 H Lymph % (Auto) 15.9 L [place] % (Auto) 3.5 Eos % (Auto) 2.2 Baso % (Auto) 0.1 Absolute Neuts (auto) 7.9 H Absolute Lymphs (auto) 1.62 Total Counted Not Reportable Sodium 133 L Potassium 4.8 Chloride 99 Carbon Dioxide 28.0 Anion Gap 6 BUN 39 H Creatinine 1.25 Estim Creat Clear Calc 42.60 Est GFR (MDRD) Af Amer 71 Est GFR (MDRD) Non-Af 59 L BUN/Creatinine Ratio 31.2 H Glucose 126 H Calcium 9.2 Clinical Impression(s) from Imaging Studies Chest X-Ray 10/04/18 11:37 IMPRESSION: Cardiomegaly. Electronically Signed: Bakari Faust DO at 12:57 EDT Tel [phone], Service support , Chest CTA 10/04/18 12:26 IMPRESSION: There is right-sided pulmonary embolism. No arterial dissection. Left pulmonary infiltrates. N.B. : The above information has been verbally conveyed by Bakari Faust DO to Sayra Hector MD, , on 10/04/2018 15:36:59 (ET). Electronically Signed: Bakari Faust DO at 15:19 EDT Tel [phone], Service support , Assessment/Plan All Active Problems (Last Reviewed 06/05/18 @ 13:40 by Fito Alcala MD) Acute respiratory failure with hypoxia (Acute) Pulmonary embolism (Acute) Dyspnea on exertion (Acute) LUQ abdominal pain (Acute) NSTEMI (non-ST elevated myocardial infarction) (Acute) 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 Continue Eliquis as ordered. 2. Wean supplemental oxygen to maintain saturations at or above 90%. 3. Continue BiPAP therapy as needed. 4. Encourage incentive spirometer use and mobilize patient as tolerated. 5. Consider transitioning back to IV diuretic therapy today. IMPRESSIONS: 1. Acute hypoxic respiratory failure secondary to submassive PE with cor pulmonale Patient was significantly elevated right-sided pressures noted on echocardiogram. Patient's oxygenation demands have improved slowly over the course of the hospitalization. Patient has had minimal bleeding complications. However, patient appears significantly weak secondary to immobility. Some concern the patient may have a concomitant atelectasis complicating recovery. Patient is being followed by PT/OT. Continue noninvasive positive pressure ventilatory support as needed. This will aid in alveolar recruitment. Continue to wean supplemental oxygen to maintain saturations at or above 90%. Consider transitioning back to IV diuretic therapy today, as the patient's weight is up a bit. 2. Borderline bronchiectasis with left-sided infiltrates Unclear etiology. Patient may have an underlying pulmonary pathology that was not previously recognized. Patient should have outpatient pulmonary function testing. Left-sided infiltrates may be secondary to pulmonary infarct versus CHF associated with cor pulmonale. 3. Chronic diastolic congestive heart failure/CAD status post CABG and stents/elevated troponin Complicated by cor pulmonale. Agree with intermittent diuretic therapy. Continue rate control with metoprolol. Patient recently had a stent in May 2018, so aspirin and Brilinta should be continued. Patient will need a repeat echocardiogram in the future to show improvement in pulmonary artery pressures if patient remains aggressive. Guarded long-term prognosis. 4. Advanced age/IBS/BPH/chronic pain syndrome/hypercholesterolemia/glaucoma Complicates care, management, recovery and prognosis. Okay to continue with baseline medications from my perspective. This note was generated with [employer] dictation software. It may contain incorrect words, spelling, and punctuation that were not noted in checking the note before signing. Code Visit Inpatient E&M: 54340 Subs Hosp L2
[2018-10-12] MEDS: Folic Acid 1 MG Tablet 0.5 MG PO (09:32)
[2018-10-12] MEDS: Metoprolol(XL)Succ 50 MG Tablet PO (09:32)
[2018-10-12] MEDS: Aspirin 81 MG TAB.CHEW PO (09:33)
[2018-10-12] MEDS: Isosorbide Mononitrate 60 MG Tablet PO (09:33)
[2018-10-12] MEDS: Polyethylene Glycol 3350 17 GM PACKET PO (09:33)
[2018-10-12] MEDS: APIXABAN 5 MG TABLET 10 MG PO (09:33)
[2018-10-12] MEDS: Multivitamins,Ther W-Minerals Tablet 1 TABLET PO (09:33)
[2018-10-12] MEDS: Magnesium Oxide 400 MG Tablet PO (09:33)
[2018-10-12] MEDS: Furosemide 40 MG Tablet PO (09:33)
--- NOTE | 2018-10-12 11:35 | CASEMGMT ---
SW spoke with patient's son per his request. He is aware of plan for patient to go to TCU at d/c. He had questions about nursing homes when patient leaves TCU. He asked lots of questions regarding planning for future for his parents. RAFAEL gathered a packet of the resources he requested and gave them to him. [facility] Latricia PEREIRA
--- NOTE | 2018-10-12 13:01 | PN_ITS ---
Patient Problems: Active and Suspected Problems (Last Reviewed 06/05/18 @ 13:40 by Fito Alcala MD) Acute respiratory failure with hypoxia (Acute) Pulmonary embolism (Acute) Subjective: No acute issues. Very lethargic. No CP. Denies SOB. Minimally communicative. C/o hip pain and needs help being repositioned. Pt/family considering hospice. - Physical Exam General: Alert, Oriented x3, Cooperative, Lethargic HEENT: Atraumatic, PERRLA, EOMI, Normocephalic Neck: Supple, No JVD, Negative Carotid Bruits Lungs: Diminished Cardiovascular: Regular rate, No murmurs Abdomen: Bowel Sounds Present, Soft, Non Tender Extremities: No edema, Capillary Refill Less than 3 Seconds Skin: No rashes, No breakdown Musculoskeletal: No Tenderness to Palpation of Joints or Extremities Neurological: Cranial nerves II-XII grossly intact Psych/Mental Status: Depressed, Alert and oriented to time, place, person, mood and affect Vital Signs Temp Pulse Resp BP Pulse Ox 98.7 F 71 18 111/75 97 10/12/18 08:54 10/12/18 09:32 10/12/18 08:54 10/12/18 09:32 10/12/18 08:54 Oxygen Flow Rate (L/min) 3 Oxygen Delivery Method Bi-pap Weight: 216 lb 4.375 oz Body Mass Index (BMI) 33.5 Intake and Output for Last 24 Hours 10/10/18 10/11/18 10/12/18 23:59 23:59 23:59 Intake Total 1130 / 1130 450 / 570 180 / 180 Output Total 850 / 850 200 / 200 Balance 280 / 280 450 / 370 -20 / -20 Laboratory Tests Past 24 Hrs 10/11/18 10/11/18 18:10 18:10 WBC 10.2 RBC 3.54 L Hgb 9.5 L Hct 28.4 L MCV 80.2 MCH 26.8 L MCHC 33.5 RDW 18.5 H RDW Differential 54.1 H Plt Count 317 MPV 10.4 Immature Gran % (Auto) 0.200 Neut % (Auto) 78.1 H Lymph % (Auto) 15.9 L [place] % (Auto) 3.5 Eos % (Auto) 2.2 Baso % (Auto) 0.1 Absolute Neuts (auto) 7.9 H Absolute Lymphs (auto) 1.62 Total Counted Not Reportable Sodium 133 L Potassium 4.8 Chloride 99 Carbon Dioxide 28.0 Anion Gap 6 BUN 39 H Creatinine 1.25 Estim Creat Clear Calc 42.60 Est GFR (MDRD) Af Amer 71 Est GFR (MDRD) Non-Af 59 L BUN/Creatinine Ratio 31.2 H Glucose 126 H Calcium 9.2 Assessment/Plan All Active Problems (Last Reviewed 06/05/18 @ 13:40 by Fito Alcala MD) Acute respiratory failure with hypoxia (Acute) Pulmonary embolism (Acute) Dyspnea on exertion (Acute) LUQ abdominal pain (Acute) NSTEMI (non-ST elevated myocardial infarction) (Acute) H/O coronary artery bypass surgery (Resolved 09/12/00) History of coronary artery stent placement (Resolved 05/13/18) Cellulitis (Resolved) Cellulitis and abscess of left lower extremity (Resolved) Chest pain (Resolved) Right pulmonary embolus (Resolved) 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 (Resolved) 1. Acute hypoxic respiratory failure secondary to right-sided submassive PE- completed 1 week and productive re-. Of Eliquis will transition to 5 twice daily starting tonight. Echo with results as above. Severe pulmonary hypertension. Continue BiPAP as needed, oxygen via nasal cannula as needed. Audiology and pulmonology following. 2. Acute on chronic diastolic congestive heart failure-EF 65%. Complicated by severe pulmonary hypertension and cor pulmonale. Resume IV Lasix. Chest x-ray today is poor. 3. Epistaxis and hemoptysis secondary to Eliquis. Hemoglobin stable. No further bleeding noted. 4. Hyponatremia-suspect hypervolemic secondary to weight gain from fluid overload-we will trend with IV Lasix. 5. CAD with recent stent, restenosis. Unfortunately Brilinta had to be stopped secondary to his bleeding as above. Continue other medications as previously ordered. 6. BPH-Flomax DVT prophylaxis: Eliquis Discharge planning: Hospice versus senior living (TCU). Prognosis is poor. This patient was seen by Johnny Aguilera PA-C under the supervision of Doctor Espinal.
[2018-10-12] MEDS: Loratadine 10 MG Tablet PO (13:07)
--- NOTE | 2018-10-12 13:44 | PN.CARD_ITS ---
Subjectve: Patient seen and evaluated Objective: Vital Signs Temp Pulse Resp BP Pulse Ox 98.7 F 71 18 111/75 97 10/12/18 08:54 10/12/18 09:32 10/12/18 08:54 10/12/18 09:32 10/12/18 08:54 Oxygen Flow Rate (L/min) 5 Oxygen Delivery Method Nasal Cannula Weight: 216 lb 4.375 oz Body Mass Index (BMI) 33.5 Intake and Output for Last 24 Hours 10/10/18 10/11/18 10/12/18 23:59 23:59 23:59 Intake Total 1130 / 1130 450 / 570 180 / 180 Output Total 850 / 850 200 / 200 Balance 280 / 280 450 / 370 -20 / -20 General: Lethargic HEENT: PERRL, EOMI, Sclera Non Icteric Neck: Supple, Good ROM, No Lymph Node Enlargement Lungs: Clear to auscultation Cardiovascular: Regular Rhythm, Normal S1, Normal S2, No Murmurs, No Rubs, No Gallops 10/11/18 18:10: WBC 10.2, RBC 3.54 L, Hgb 9.5 L, Hct 28.4 L, MCV 80.2, MCH 26.8 L, MCHC 33.5, RDW 18.5 H, RDW Differential 54.1 H, Plt Count 317, MPV 10.4, Immature Gran % (Auto) 0.200, Neut % (Auto) 78.1 H, Lymph % (Auto) 15.9 L, [place] % (Auto) 3.5, Eos % (Auto) 2.2, Baso % (Auto) 0.1, Absolute Neuts (auto) 7.9 H, Total Counted Not Reportable 10/11/18 18:10: Sodium 133 L, Potassium 4.8, Chloride 99, Carbon Dioxide 28.0, Anion Gap 6, BUN 39 H, Creatinine 1.25, Est GFR (MDRD) Af Amer 71, Est GFR (MDRD) Non-Af 59 L, BUN/Creatinine Ratio 31.2 H, Glucose 126 H, Calcium 9.2 Rhythm: EKG: ECHO: Stress Test: Cardiac Cath: PCI: CT Surgery: Holter monitor: EPS: PPM: CXR: Chest CT Scan: Assessment/Plan 1. Dyspnea on exertion Patient presents with dyspnea and is noted to have a pulmonary embolism. He will need to be anticoagulated per usual protocol but due to his epistaxis I would suggest that we discontinue his Brilinta at this particular time. His echocardiogram demonstrated significant elevation in his right ventricular pressures. This is likely responsible for his elevated troponin and natruretic peptide levels. We will continue the apixaban for now. His bleeding has improved and will continue his current regimen. Patient should be encouraged to sit up in chair. 2. 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 No changes were made with the risk factor to his antianginal therapy. His Brilinta has been discontinued. 3. History of coronary artery stent placement Z95.5 PTCA/EASTON Anomalous LCX off of RCA with a 2.25 x 24 Promus Synergy and PTCA/EASTON of distal RCA in stent plaque protrusion with possible non occlusive thrombus w/ 3.5 x 32 Promus Synergy05/19/18 PTCA/EASTON distal RCA with a 3.5 x 38 Promus Syergy and EASTON mid RCA with a 4.0 x 32 Promus Synergy Stent 05/13/18 EASTON-Prox LAD w/ 3.5 mm x 20 mm Promus Stent 08/27/12 [id number] & proximal RCA 06/21/2002 He will continue the current treatment plan as outlined above. 4. 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 5. Essential (primary) hypertension I10 Plan Patient's blood pressure is well-controlled. This is also been monitored during cardiac rehab and been well controlled most days. We will continue to monitor. We will not make any medication regimen changes. Orders 6. Hyperlipidemia, unspecified hyperlipidemia type E78.5 Plan He will continue with current statin medication. I had a long discussion with his family who had just had a discussion with hospice. At this time they have decided against that. It would be helpful to give him something to relieve his pain. I will however try and space out his OxyContin so that he is not so somnolent. Plans for extended care facility in motion. 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 Stent apposition confirmed with IVUS before and after stent deployment. 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 Echocardiogram from 05/10/2018: Interpretation Summary The left atrium is mildly enlarged. Normal LV size. Mild concentric left ventricular hypertrophy. Left ventricular systolic function is normal. The estimated ejection fraction is 65 %. Pulmonary artery systolic pressure is 38 mmHg. Contrast injection was performed. Stress test from 10/15/2017: Conclusion: Pharmacologic myocardial perfusion stress test with no significant ischemia noted. Previous basal inferior infarct is present. Minimal humaira-infarct ischemia cannot be completely excluded. Preserved ejection fraction.
[2018-10-12] MEDS: Ketorolac 15 MG/ML Vial IV (14:24)
[2018-10-12] MEDS: 0.9% NaCl Peripheral Flush Adult/Peds IV ×2 (14:25→18:02)
--- NOTE | 2018-10-12 14:27 | CHAPLAIN ---
Type of Pastoral Visit ___ Initial Visit _x__ Follow-up Visit ___ On-call Visit ___ General Patient Visit ___ Spiritual Assessment ___ Family Conference ___ Bereavement ___ Rapid Response ___ Code Blue ___ Other (describe below) Pastoral Care Referral From ___ Patient ___ Family ___ Nurse ___ Physician ___ Correctional Medicine Physician ___ Air Sampling And Monitoring _x__ Other (describe below) Sacrament/Intervention _x__ Active listening ___ Anointing ___ Christianity ___ Bereavement ___ Communion ___ Olivia exploration ___ ___ Life review ___ Prayer ___ Reconciliation ___ Sacrament of Sick _x__ Supportive presence ___ Wedding ___ Other (describe below) Pastoral Comments family members in room; patient has fallen asleep; offer of support to family
[2018-10-12] MEDS: Furosemide 40 MG/4 ML Vial IV (18:02)
[2018-10-12] MEDS: Tamsulosin HCl 0.4 MG Capsule PO (18:02)
[2018-10-12] MEDS: CLARIFY ORDER 1 EACH NOTE (22:12)
[2018-10-12] MEDS: APIXABAN 5 MG TABLET PO (22:13)
[2018-10-12] MEDS: Atorvastatin Calcium 40 MG Tablet PO (22:13)
[2018-10-12] MEDS: Latanoprost 0.005% 1 Bottle 1 DRP EACH EYE (22:14)
[2018-10-13] VITALS (9 sets, daily range): BP systolic 113–157; BP diastolic 54–77; PULSE 70–89; RESP 12–24; TEMP 36.7–37.2; O2SAT 94–98
--- NOTE | 2018-10-13 04:22 | CPS ---
Asked pt. if he would like to go back on his BiPAP. Pt. refused to go back on. 98% on 5L HFNC. Pt. not showing signs of any respiratory distress. Will allow patient to remain off BiPAP due to pulse ox and assessment.
--- NOTE | 2018-10-13 07:18 | PCM.PN.CARD ---
Subjectve: Patient seen and evaluated. Objective: Vital Signs Temp Pulse Resp BP Pulse Ox 98.1 F 89 21 H 157/77 H 98 10/13/18 03:45 10/13/18 03:45 10/13/18 03:45 10/13/18 03:45 10/13/18 04:10 Oxygen Flow Rate (L/min) 5 Oxygen Delivery Method Nasal Cannula Weight: 211 lb 10.3 oz Body Mass Index (BMI) 33.5 Intake and Output for Last 24 Hours 10/11/18 10/12/18 10/13/18 23:59 23:59 23:59 Intake Total 450 / 570 180 / 180 150 / 150 Output Total 200 / 200 Balance 450 / 370 -20 / -20 150 / 150 General: Awake, Alert, Oriented x 3 HEENT: PERRL, EOMI, Sclera Non Icteric Neck: Supple, Good ROM, No Lymph Node Enlargement Lungs: Clear to auscultation Cardiovascular: Regular Rhythm, Normal S1, Normal S2, No Murmurs, No Rubs, No Gallops Vascular: No Carotid Bruits, Normal Femoral Pulses, Normal Radial Pulses, Normal Dorsalis Pedal Pulse, Normal Posterior Tibial Pulses Abdomen: Bowel Sounds Present, Soft, Non Tender, No HSM, No Organomegaly Extremities: No Cyanosis, No Clubbing, No edema Musculoskeletal: No Erythema Lymphatic: No Lymph Node Enlargement Neurological: No Focal Motor or Sensory Deficit Psych/Mental Status: Appropriate Rhythm: EKG: ECHO: Stress Test: Cardiac Cath: PCI: CT Surgery: Holter monitor: EPS: PPM: CXR: Chest CT Scan: Assessment/Plan 1. Dyspnea on exertion Patient presents with dyspnea and is noted to have a pulmonary embolism. He will need to be anticoagulated per usual protocol but due to his epistaxis I would suggest that we discontinue his Brilinta at this particular time. His echocardiogram demonstrated significant elevation in his right ventricular pressures. This is likely responsible for his elevated troponin and natruretic peptide levels. We will continue the apixaban for now. His bleeding has improved and will continue his current regimen. Patient should be encouraged to sit up in chair. After discussion with the patient, hospitalist, and family it appears that he may be stable to go to the transitional care unit today 2. Atherosclerotic heart disease of [place] coronary artery with other forms of angina pectoris I25.118 PTCA/EASTON Anomalous LCX off of RCA with a 2.25 x 24 Promus Synergy and PTCA/EASTON of distal RCA in stent plaque protrusion with possible non occlusive thrombus w/ 3.5 x 32 Promus Synergy05/19/18 PTCA/EASTON distal RCA with a 3.5 x 38 Promus Syergy and EASTON mid RCA with a 4.0 x 32 Promus Synergy Stent 05/13/18 EASTON-Prox LAD w/ 3.5 mm x 20 mm Promus Stent 08/27/12 [id number] & proximal RCA 06/21/2002 Patient will continue with medical therapy. No changes were made with the risk factor to his antianginal therapy. His Brilinta has been discontinued. 3. History of coronary artery stent placement Z95.5 PTCA/EASTON Anomalous LCX off of RCA with a 2.25 x 24 Promus Synergy and PTCA/EASTON of distal RCA in stent plaque protrusion with possible non occlusive thrombus w/ 3.5 x 32 Promus Synergy05/19/18 PTCA/EASTON distal RCA with a 3.5 x 38 Promus Syergy and EASTON mid RCA with a 4.0 x 32 Promus Synergy Stent 05/13/18 EASTON-Prox LAD w/ 3.5 mm x 20 mm Promus Stent 08/27/12 [id number] & proximal RCA 06/21/2002 He will continue the current treatment plan as outlined above. 4. 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 5. Essential (primary) hypertension I10 Plan Patient's blood pressure is well-controlled. This is also been monitored during cardiac rehab and been well controlled most days. We will continue to monitor. We will not make any medication regimen changes. Orders 6. Hyperlipidemia, unspecified hyperlipidemia type E78.5 Plan He will continue with current statin medication. Thank you for allowing me to participate in the care of your patient. Please don't hesitate to call if any issues arise
--- NOTE | 2018-10-13 07:33 | PCM.PN.PUL ---
Patient Problems: Active and Suspected Problems (Last Reviewed 06/05/18 @ 13:40 by Fito Alcala MD) Acute respiratory failure with hypoxia (Acute) Pulmonary embolism (Acute) Subjective: The patient was seen and examined at the bedside this morning. Events from the last 24 hours have been reviewed. The patient is currently afebrile, hemodynamically stable and maintaining appropriate oxygen saturations on 5 L/min via nasal cannula. The patient refused to use BiPAP for a portion of the night. Objective: The patient's most recent lab work, culture data and imaging studies have all been personally reviewed. - Physical Exam General: Alert, Cooperative, No apparent distress, Confused HEENT: Atraumatic, Normocephalic Oral: No Gingival or Mucosal Lesions/ Ulcerations Neck: Supple, No Nodes, Trachea Midline Lungs: No rhonchi, No wheeze, No rales, Diminished Cardiovascular: Regular rate, Regular Rhythm, Normal S1, Normal S2 Abdomen: Bowel Sounds Present, Soft, Non Tender, Obese Extremities: No clubbing, No cyanosis Skin: - - No significant change from previous Musculoskeletal: No Tenderness to Palpation of Joints or Extremities Lymphatic: No Cervical, Supraclavicular, or Inguinal Adenopathy Neurological: Neuro grossly intact Psych/Mental Status: Flat Affect Vital Signs Temp Pulse Resp BP Pulse Ox 98.1 F 74 21 H 157/77 H 98 10/13/18 03:45 10/13/18 07:09 10/13/18 03:45 10/13/18 03:45 10/13/18 04:10 Oxygen Flow Rate (L/min) 5 Oxygen Delivery Method Nasal Cannula Weight: 211 lb 10.3 oz Body Mass Index (BMI) 33.5 Intake and Output for Last 24 Hours 10/11/18 10/12/18 10/13/18 23:59 23:59 23:59 Intake Total 450 / 570 180 / 180 150 / 150 Output Total 200 / 200 Balance 450 / 370 -20 / -20 150 / 150 Labs (Last 48 Hours) 10/11/18 10/11/18 18:10 18:10 WBC 10.2 RBC 3.54 L Hgb 9.5 L Hct 28.4 L MCV 80.2 MCH 26.8 L MCHC 33.5 RDW 18.5 H RDW Differential 54.1 H Plt Count 317 MPV 10.4 Immature Gran % (Auto) 0.200 Neut % (Auto) 78.1 H Lymph % (Auto) 15.9 L [place] % (Auto) 3.5 Eos % (Auto) 2.2 Baso % (Auto) 0.1 Absolute Neuts (auto) 7.9 H Absolute Lymphs (auto) 1.62 Total Counted Not Reportable Sodium 133 L Potassium 4.8 Chloride 99 Carbon Dioxide 28.0 Anion Gap 6 BUN 39 H Creatinine 1.25 Estim Creat Clear Calc 42.60 Est GFR (MDRD) Af Amer 71 Est GFR (MDRD) Non-Af 59 L BUN/Creatinine Ratio 31.2 H Glucose 126 H Calcium 9.2 Clinical Impression(s) from Imaging Studies Chest X-Ray 10/04/18 11:37 IMPRESSION: Cardiomegaly. Electronically Signed: Bakari Faust DO at 12:57 EDT Tel [phone], Service support , Chest CTA 10/04/18 12:26 IMPRESSION: There is right-sided pulmonary embolism. No arterial dissection. Left pulmonary infiltrates. N.B. : The above information has been verbally conveyed by Bakari Faust DO to Sayra Hector MD, , on 10/04/2018 15:36:59 (ET). Electronically Signed: Bakari Faust DO at 15:19 EDT Tel [phone], Service support , Chest X-Ray 10/12/18 05:55 IMPRESSION: Infiltrate in the peripheral aspect of the right lower lobe. Follow-up is recommended. Electronically Signed: Monico Sherman, at 11:25 EDT , Service support , Assessment/Plan All Active Problems (Last Reviewed 06/05/18 @ 13:40 by Fito Alcala MD) Acute respiratory failure with hypoxia (Acute) Pulmonary embolism (Acute) Dyspnea on exertion (Acute) LUQ abdominal pain (Acute) NSTEMI (non-ST elevated myocardial infarction) (Acute) 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 Continue Eliquis as ordered. 2. Wean supplemental oxygen to maintain saturations at or above 90%. 3. Continue BiPAP therapy as needed. 4. Encourage incentive spirometer use and mobilize patient as tolerated. 5. Continue daily diuretic therapy. IMPRESSIONS: 1. Acute hypoxic respiratory failure secondary to submassive PE with cor pulmonale Patient was significantly elevated right-sided pressures noted on echocardiogram. Patient's oxygenation demands have improved slowly over the course of the hospitalization. Patient has had minimal bleeding complications. However, patient appears significantly weak secondary to immobility. Some concern the patient may have a concomitant atelectasis complicating recovery. Patient is being followed by PT/OT. Continue noninvasive positive pressure ventilatory support as needed. This will aid in alveolar recruitment. Continue to wean supplemental oxygen to maintain saturations at or above 90%. Continue diuretic therapy as tolerated. 2. Borderline bronchiectasis with left-sided infiltrates Unclear etiology. Patient may have an underlying pulmonary pathology that was not previously recognized. Patient should have outpatient pulmonary function testing. Left-sided infiltrates may be secondary to pulmonary infarct versus CHF associated with cor pulmonale. 3. Chronic diastolic congestive heart failure/CAD status post CABG and stents/elevated troponin Complicated by cor pulmonale. Agree with intermittent diuretic therapy. Continue rate control with metoprolol. Patient recently had a stent in May 2018, so aspirin and Brilinta should be continued. Patient will need a repeat echocardiogram in the future to show improvement in pulmonary artery pressures if patient remains aggressive. Guarded long-term prognosis. 4. Advanced age/IBS/BPH/chronic pain syndrome/hypercholesterolemia/glaucoma Complicates care, management, recovery and prognosis. Okay to continue with baseline medications from my perspective. This note was generated with [employer] dictation software. It may contain incorrect words, spelling, and punctuation that were not noted in checking the note before signing. Code Visit Inpatient E&M: 44800 Subs Hosp L2
[2018-10-13 08:14] LABS: Anion Gap 4 (5-15); BUN 35 mg/dL (7-18); BUN/Creat Ratio 29.4 RATIO (10-20); Calcium,Total 8.8 mg/dL (8.5-10.1); Chloride 100 mmol/L (98-107); Creatinine, Serum 1.19 mg/dL (0.70-1.30); EST Glomerular Filtration Rate 62 mL/min (>60); Est Glom Filt Rate - Afr Amer 75 mL/min (>60); Estimated Creatinine Clearance 44.75 ml/min; Glucose 102 mg/dL (74-106); Potassium 4.3 mmol/L (3.5-5.1); Sodium Level 134 mmol/L (136-145)
[2018-10-13 08:25] LABS: Hematocrit 27.1 % (40-54); Hemoglobin 8.9 g/dL (13.0-16.5); Mean Corp Hgb Conc 32.8 g/dL (32-36); Mean Corpuscular Hgb 26.8 pg (27.0-32.0); Mean Corpuscular Volume 81.6 fL (80-94); Mean Platelet Vol. 10.1 fl (6.2-12.0); Platelet Count 334 K/mm3 (150-450); RBC Distribution Width CV 18.5 % (11.6-14.6); Red Blood Count 3.32 M/mm3 (4.6-6.2)
[2018-10-13] MEDS: APIXABAN 5 MG TABLET PO (09:32)
[2018-10-13] MEDS: Loratadine 10 MG Tablet PO (09:32)
[2018-10-13] MEDS: Folic Acid 1 MG Tablet 0.5 MG PO (09:32)
[2018-10-13] MEDS: Magnesium Oxide 400 MG Tablet PO (09:32)
[2018-10-13] MEDS: Metoprolol(XL)Succ 50 MG Tablet PO (09:32)
[2018-10-13] MEDS: Multivitamins,Ther W-Minerals Tablet 1 TABLET PO (09:32)
[2018-10-13] MEDS: Isosorbide Mononitrate 60 MG Tablet PO (09:33)
[2018-10-13] MEDS: Aspirin 81 MG TAB.CHEW PO (09:33)
[2018-10-13] MEDS: Furosemide 40 MG/4 ML Vial IV (09:33)
[2018-10-13] MEDS: Polyethylene Glycol 3350 17 GM PACKET PO (09:34)
--- NOTE | 2018-10-13 11:55 | PCM.EXTCARCO ---
- Diet 10/04/18 16:57 Diet: Cardiac/Low Cholesterol Food consistency:: Regular Liquid Consistency:: Regular/Thin Diet: Fluid Restriction Food consistency:: Regular Liquid Consistency:: Regular/Thin Fluid restriction:: 1500 mL - Routine Orders/Code Status Suppository Type: Dulcolax 10mg Suppository Frequency: Daily PRN O2 Frequency: Continuous Keep PO Greater than or Equal to (%): 90 Routine Lab Work: CBC - 5 days, BMP - 5 days Code Status: DNC-A - Therapies Physical Therapy: Eval and Treat Occupational Therapy: Eval and Treat - Allergies/Procedures Done in Hospital Allergies/Adverse Reactions: Allergies diazepam [From Valium] Allergy (Intermediate, Verified 10/04/18 11:24) Other HALLUCINATIONS morphine Allergy (Intermediate, Verified 10/04/18 11:24) Other TWITCHES Procedures: 2-D Echocardiogram - Type of Care/Length of Stay Estimated LOS: Convalescent Care Less Than 30 days Type of Care Needed: Skilled Rehab Potential: Poor Prognosis: Poor - Additional Orders/Day of Discharge Day of Discharge: 10/13/18 - Dietary and Speech Recommendations Dietitian Recommendations/Changes: Suggest liberalize diet as indicated to regular/no added salt with fluid restriction as needed especially if PO remains compromised at meals. Continue ensure enlive on medpass as tolerated. - Follow Up Care Primary Care Physician: Calderon Ramirez MD [Primary Care Provider] - Please follow up with your Primary Care Physician in: 2 weeks Please Follow Up With: Fito Alcala MD Please Follow Up With: Kevin Winslow MD When: 2 weeks
--- NOTE | 2018-10-13 14:18 | DS.PCM_ITS ---
Discharge Date and Diagnosis - Problem List Patient Problems: Active and Suspected Problems (Last Reviewed 06/05/18 @ 13:40 by Fito Alcala MD) Acute respiratory failure with hypoxia (Acute) Pulmonary embolism (Acute) Date of Admission: 10/04/18 Date of Discharge: 10/13/18 - Primary Discharge Diagnosis Active and Suspected Problems (Last Reviewed 06/05/18 @ 13:40 by Fito Alcala MD) Acute respiratory failure with hypoxia (Acute) secondary to pulmonary embolism (Acute), submassive Acute on chronic diastolic congestive heart failure CAD history of CABG, stent, reocclusion of recent cardiac stent Epistaxis and hemoptysis secondary to anticoagulation Elevated troponin, non-STEMI versus secondary to PE Hypervolemic hyponatremia BPH Normocytic anemia - Secondary Discharge Diagnosis Chronic Problems (Last Reviewed 06/05/18 @ 13:40 by Fito Alcala MD) Essential (primary) hypertension (Chronic) 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 CT/CTA Chest W/WO Contrast IMPRESSION: There is right-sided pulmonary embolism. No arterial dissection. Left pulmonary infiltrates. N.B. : The above information has been verbally conveyed by Bakari Faust DO to Sayra Hector MD, MD, on 10/04/2018 15:36:59 (ET). Echo: Interpretation Summary Normal LV size. Left ventricular systolic function is normal. Moderate concentric left ventricular hypertrophy. The estimated ejection fraction is 65 %. Moderate (2+) tricuspid valve insufficiency. Severe pulmonary hypertension. Stage 2 diastolic dysfunction. Pulmonary artery systolic pressure is 82 mmHg. Comparedto the prveiuos the pulmonary pressures have increased. RAD/Chest PA and Lateral IMPRESSION: Infiltrate in the peripheral aspect of the right lower lobe. Follow-up is recommended. Consultations: Pulmonology- Gold[facility]Серг[facility] Operations: None Procedures: 2-D Echocardiogram Summary of Care Provided: Hospital course: The patient is a 83 year old M with past medical history as above notably for prior PE, CAD with CABG in 2000 and a drug-eluting stent placed May of this year, who was recently off his Coumadin, who presented to the emergency room with increased shortness of breath, chest pain, orthopnea, PND, bilateral lower extremity edema. He was found to be 85% on room air in the emergency room with tachypnea, elevated beta natruretic peptide, indeterminate troponin, and a CTA showing right-sided pulmonary embolism and left pulmonary infiltrates. He was admitted for acute hypoxic respiratory failure, chronic diastolic congestive heart failure, and submassive PE. He was started on Eliquis for PE, and given IV Lasix. He required BiPAP initially to maintain good saturations. Cardiology and pulmonology were consulted. An echo was obtained which demonstrated EF of 65%, stage II diastolic dysfunction, PA systolic pressure of 82 mmHg consistent with severe pulmonary hypertension. He developed epistaxis and hemoptysis with beginning Eliquis, is decided to be taken off his Brilinta, and that aspirin would be continued. His hemoglobin remained stable and his hemoptysis and epistaxis resolved. Troponins remained stable. The patient remains severely debilitated, with very poor breathing despite supplemental oxygen, BiPAP, and supportive care.. Given his severity of his PE and respiratory failure, underl torey CAD with failed stent and inability to continue Brilinta, his prognosis was very poor. He was felt appropriate for hospice. His family was contacted who traveled from out of state to visit him and discuss his care. They were not interested in hospice at this time. Given his ongoing debility and frailty it was felt that he was appropriate for care home. He was discharged to the transitional care unit for care home stable condition. He will continue Eliquis, continue to be off Brilinta, and continue his medications as otherwise ordered. He will need to follow-up with pulmonology in 2-week and cardiology as directed as an outpatient as well as with his PCP in 2 weeks. This patient was seen by Johnny Aguilera PA-C under the supervision of Doctor Teddy. [] Patient Problems: Active and Suspected Problems (Last Reviewed 06/05/18 @ 13:40 by Fito Alcala MD) Acute respiratory failure with hypoxia (Acute) Pulmonary embolism (Acute) - Physical Exam General: Alert, Oriented x3, Cooperative, Lethargic HEENT: Atraumatic, PERRLA, EOMI, Normocephalic Neck: Supple, No JVD, Negative Carotid Bruits Lungs: Clear to auscultation, Normal air movement Cardiovascular: Regular rate, No murmurs Abdomen: Bowel Sounds Present, Soft, Non Tender Extremities: No edema, Capillary Refill Less than 3 Seconds Skin: No rashes, No breakdown Musculoskeletal: No Tenderness to Palpation of Joints or Extremities Neurological: Cranial nerves II-XII grossly intact Psych/Mental Status: Normal Affect, Appropriate, Alert and oriented to time, place, person, mood and affect Vital Signs Temp Pulse Resp BP Pulse Ox 98.1 F 70 16 113/54 L 95 10/13/18 09:30 10/13/18 09:32 10/13/18 09:30 10/13/18 09:30 10/13/18 09:30 Oxygen Flow Rate (L/min) 5 Oxygen Delivery Method Nasal Cannula Weight: 211 lb 10.3 oz Body Mass Index (BMI) 33.5 Intake and Output for Last 24 Hours 10/11/18 10/12/18 10/13/18 23:59 23:59 23:59 Intake Total 450 / 570 180 / 180 390 / 390 Output Total 200 / 200 Balance 450 / 370 -20 / -20 390 / 390 Laboratory Tests Past 24 Hrs 10/13/18 10/13/18 07:28 07:28 WBC 10.0 RBC 3.32 L Hgb 8.9 L Hct 27.1 L MCV 81.6 MCH 26.8 L MCHC 32.8 RDW Std Deviation 55.0 H RDW Coeff of Karen 18.5 H Plt Count 334 MPV 10.1 Sodium 134 L Potassium 4.3 Chloride 100 Carbon Dioxide 30.0 Anion Gap 4 L BUN 35 H Creatinine 1.19 Estim Creat Clear Calc 44.75 Est GFR (MDRD) Af Amer 75 Est GFR (MDRD) Non-Af 62 BUN/Creatinine Ratio 29.4 H Glucose 102 Calcium 8.8 Discharge Diet: Low fat/ Low Cholesterol, 2000 mg Sodium Diet Discharge Activity: Return to Normal Activity Home Medications: Medications to take at Discharge Aspirin [Aspirin, Baby] 81 mg PO DAILY@0800 06/23/13 Metoprolol(XL)Succ [Toprol Xl (Beta Luis Felipe)] 50 mg PO DAILY 06/23/13 Cetirizine HCl [Zyrtec] 10 mg PO DAILY 03/25/15 Isosorbide Mononitrate [Isosorbide Mononitrate ER] 60 mg PO DAILY 03/25/15 Multivit-Min/FA/Lycopen/Lutein [Centrum Silver Tablet] 1 ea PO DAILY 03/25/15 atorvastatin 40 mg tablet 40 mg PO QHS tab 05/08/17 magnesium oxide 400 mg (241.3 mg magnesium) tablet 400 mg PO QDAY tab 05/08/17 furosemide 40 mg tablet 40 mg PO DAILY tab 12/05/17 tamsulosin 0.4 mg capsule 0.4 mg PO DAILY 30 Days #30 12/05/17 Folic Acid 0.4 mg PO DAILY@0800 05/10/18 Travoprost 0.004% [Travatan-Z 0.004% Eye Drop] 1 drop EACH EYE QHS 05/10/18 Acetaminophen [Tylenol Tablet] 650 mg PO Q6H PRN PRN tablet 05/20/18 Aspirin/Acetaminophen/Caffeine [Excedrin Migraine Caplet] 2 ea PO PRN 10/12/18 Apixaban [Eliquis] 5 mg PO BID tab 10/13/18 Calcium Carbonate [Tums] 1,000 mg PO Q4H PRN PRN tab 10/13/18 Ensure Enlive 120 ml PO 4X/DAY liquid 10/13/18 Nitroglycerin (INPATIENT USE) [Nitrostat] 0.4 mg SUBLINGUAL Q5M PRN tab.subl 10/13/18 Polyethylene Glycol 3350 [Miralax] 17 gm PO DAILY packet 10/13/18 Primary Care Physician: Calderon Ramirez MD [Primary Care Provider] - Please follow up with your Primary Care Physician in: 2 weeks Please Follow Up With: Fito Alcala MD When: as directed Please Follow Up With: Kevin Winslow MD When: 2 weeks [facility]position: [facility] Minutes spent on discharge:: 40 Patient Condition:: Stable Meaningful Use Info Meaningful Use Diagnoses (Choose all that apply): VTE - VTE Anticoag overlap given w/in hospital stay or rx'd at dc?: No Pt receive overlap for 5 days?: No Reason overlap not ordered, prescribed, or given for 5 days: Procedure Not Indicated
== END 2018-10-13 15:28 | disposition skilled nursing facility (03) | DRG 175 ==
LOC: ED 11:54 → PCU 15:58
PROVIDERS: Internal Medicine; Internal Medicine Critical Care Medicine; Physician Assistant; Admitting Provider Student in an Organized Health Care Education/Training Program; Emergency Provider Emergency Medicine; Family Provider Family Medicine; PCP Family Medicine; Visit Provider Family Medicine
DX: I26.99 Other pulmonary embolism without acute cor pulmonale (principal); J96.01 Acute respiratory failure with hypoxia; I50.33 Acute on chronic diastolic (congestive) heart failure; G93.41 Metabolic encephalopathy; R04.2 Hemoptysis; E87.1 Hypo-osmolality and hyponatremia; I25.10 Atherosclerotic heart disease of native coronary artery without angina pectoris; K58.9 Irritable bowel syndrome, unspecified; E78.5 Hyperlipidemia, unspecified; R04.0 Epistaxis; T45.525A Adverse effect of antithrombotic drugs, initial encounter; Z66 Do not resuscitate; N40.0 Benign prostatic hyperplasia without lower urinary tract symptoms; I27.81 Cor pulmonale (chronic); D64.9 Anemia, unspecified; I11.0 Hypertensive heart disease with heart failure; H40.9 Unspecified glaucoma; G89.4 Chronic pain syndrome; R79.89 Other specified abnormal findings of blood chemistry; I25.2 Old myocardial infarction; Z86.711 Personal history of pulmonary embolism; Z95.1 Presence of aortocoronary bypass graft; Z95.5 Presence of coronary angioplasty implant and graft
CPT/HCPCS: 36415; 36600; 71045; 71046; 71275; 80048; 82803; 82962; 83880; 84484; 85025; 85027; 93005; 93306; 94002; 94003; 97110; 97163; 97166; 97530; 97802; 99285; J7030; Q9967; A4216; J1940; J2405

== ENCOUNTER 2018-10-13 16:16 | Inpatient (IN) | payer MEDICARE, SELFPAY ==
[2018-10-04 16:58] VITALS: BMI 33.5
[2018-10-13 16:36] VITALS: BP 109/61; PULSE 75; RESP 24; TEMP 37.1; O2SAT 94
--- NOTE | 2018-10-13 16:43 | NURSING ---
Addendum entered by Larissa Vazquez 10/13/18 16:44: CORRECTION ARRIVAL TIME 1530 Original Note: PT ARRIVED FROM PCU VIA BED AT 1616
[2018-10-13 16:46] VITALS: BMI 32.5
[2018-10-13 16:48] VITALS: BMI 32.5
[2018-10-13] MEDS: APIXABAN 5 MG TABLET PO (18:51)
--- NOTE | 2018-10-13 18:55 | CASEMGMT ---
Social Work See attached assessment for complete details. Patient reporting to be working on complete advanced directives for health care and declining any assistance at this time. Monae Jon MSW, DONTRELL
[2018-10-13] MEDS: ASPIRIN/ACETAMINOPHEN/CAFFEINE 1 EACH TABLET 2 EACH PO (20:07)
--- NOTE | 2018-10-13 20:28 | HP.PCM_ITS ---
Problem List (1) Debility Status: Acute (2) Chest pain Status: Acute (3) Coronary artery disease Status: Chronic (4) Acute on chronic diastolic (congestive) heart failure Status: Acute (5) Hypertension Status: Chronic (6) Pulmonary hypertension Status: Chronic (7) Stroke Status: Chronic (8) Lumbar spinal stenosis Status: Chronic (9) Hypomagnesemia Status: Chronic (10) BPH (benign prostatic hyperplasia) Status: Chronic (11) Glaucoma Status: Chronic (12) Constipation Status: Chronic (13) Acute respiratory failure with hypoxia Status: Acute (14) Pulmonary embolism Status: Acute (15) Hyperlipidemia Status: Chronic Qualifiers: History of Present Illness Date of Admission: 10/13/18 Chief Complaint: Here for rehabilitation, strengthening, prior to discharge home with spouse. The patient is a 83 year old Male with below past medical history presented to [facility] Emergency Department 10/04/2018 with chest pain. 10/04/2018 Chest X-ray showed cardiomegaly. 10/04/2018 EKG normal sinus rhythm, incomplete right bundle branch block, left anterior fascicular block, moderate voltage criteria for left ventricular hypertrophy, prolonged QT. 10/04/2018 CTA chest right pulmonary embolism, left infiltrate. Shortness of breath x 2 days, dyspnea on exertion, Exertional chest pain. Pulsox 50's on arrival by squad, BiPAP applied. WBC 10.5, Hemoglobin 11.2, Hematocrit 35, Platelet 62. BMP okay, BUn 20, Cr 1.26, Troponin 0.127, BNP 955. Lasix 80MG IV given, Lovenox 100MG SC, BiPAP given. 10/04/2018 Admit to Hospital. coumadin stopped due to recent cardiac stent placement. On Brilinta, Aspirin. BiPAP. Lasix 40MG IV BID for acute on chronic diastolic heart failure. 10/05/2018 Echo Normal LV size. Moderate left ventricular hypertrophy. EF 65%. Severe pulmonary hypertension Stage 2 diastolic dysfunction. Pulmonary artery systolic pressure 82mm HG. 10/09/2018 BiPAP for respiratory failure. Eliquis 10MG BID for massive Pulmonary embolism. NSTEMI secondary to cardiac strain. Epistaxis, Hemoptysis, stop Brilinta, continue Aspirin, Eliquis. Lasix 40MG IV BID for acute on chronic diastolic heart failure. Hospice consulted, patient declined hospice. 10/13/2018 Admit to TCU with debility, here for rehabilitation, strengthening, prior to discharge home with . When I asked him if he was ready to fight (for his life)?, he told me, No, I am ready to . Past Medical History Past Medical History (Chronic Problems): Chronic Problems (Last Reviewed 06/05/18 @ 13:40 by Fito Alcala MD) Coronary artery disease (Chronic) Hypertension (Chronic) Pulmonary hypertension (Chronic) Stroke (Chronic) Lumbar spinal stenosis (Chronic) Hypomagnesemia (Chronic) BPH (benign prostatic hyperplasia) (Chronic) Glaucoma (Chronic) Constipation (Chronic) Essential (primary) hypertension (Chronic) Secondary pulmonary arterial hypertension (Chronic) Atherosclerotic heart disease of [place] coronary artery with other forms of angina pectoris (Chronic) PTCA/EASTON Anomalous LCX off of RCA with a 2.25 x 24 Promus Synergy and PTCA/EASTON of distal RCA in stent plaque protrusion with possible non occlusive thrombus w/ 3.5 x 32 Promus Synergy05/19/18 PTCA/EASTON distal RCA with a 3.5 x 38 Promus Syergy and EASTON mid RCA with a 4.0 x 32 Promus Synergy Stent 05/13/18 EASTON-Prox LAD w/ 3.5 mm x 20 mm Promus Stent 08/27/12 [id number] & proximal RCA 06/21/2002 Hyperlipidemia (Chronic) Medical History: Medical History (Last Reviewed 06/05/18 @ 13:40 by Fito Alcala MD) NSTEMI (non-ST elevated myocardial infarction) (Acute) I21.4 Essential (primary) hypertension (Chronic) I10 Secondary pulmonary arterial hypertension (Chronic) I27.21 Atherosclerotic heart disease of viejas coronary artery with other forms of angina pectoris (Chronic) I25.118 PTCA/EASTON Anomalous LCX off of RCA with a 2.25 x 24 Promus Synergy and PTCA/EASTON of distal RCA in stent plaque protrusion with possible non occlusive thrombus w/ 3.5 x 32 Promus Synergy05/19/18 PTCA/EASTON distal RCA with a 3.5 x 38 Promus Syergy and EASTON mid RCA with a 4.0 x 32 Promus Synergy Stent 05/13/18 EASTON-Prox LAD w/ 3.5 mm x 20 mm Promus Stent 08/27/12 [id number] & proximal RCA 06/21/2002 Hyperlipidemia (Chronic) E78.5 CVA (cerebral vascular accident) I63.9 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 Pulmonary embolism I26.99 Right pulmonary embolus (Resolved) I26.99 Congestive heart failure (Inactive) I50.9 Systolic dysfunction Family history of hypertension (Inactive) Z82.49 skilled nursing use of drug (Inactive) Z79.899 Precordial chest pain (Inactive) R07.2 Pulmonary hypertension (Inactive) 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 Allergies diazepam [From Valium] Allergy (Intermediate, Verified 10/04/18 11:24) Other HALLUCINATIONS morphine Allergy (Intermediate, Verified 10/04/18 11:24) Other TWITCHES Home Medications: Ambulatory Orders Medication Instructions Recorded Aspirin [Aspirin, Baby] 81 mg PO DAILY@0800 06/23/13 Metoprolol(XL)Succ [Toprol Xl 50 mg PO DAILY 06/23/13 (Beta Luis Felipe)] Cetirizine HCl [Zyrtec] 10 mg PO DAILY 03/25/15 Isosorbide Mononitrate [Isosorbide 60 mg PO DAILY 03/25/15 Mononitrate ER] Multivit-Min/FA/Lycopen/Lutein 1 ea PO DAILY 03/25/15 [Centrum Silver Tablet] atorvastatin 40 mg tablet 40 mg PO QHS tab 05/08/17 magnesium oxide 400 mg (241.3 mg 400 mg PO QDAY tab 05/08/17 magnesium) tablet furosemide 40 mg tablet 40 mg PO DAILY tab 12/05/17 tamsulosin 0.4 mg capsule 0.4 mg PO DAILY 30 Days #30 12/05/17 Folic Acid 0.4 mg PO DAILY@0800 05/10/18 Travoprost 0.004% [Travatan-Z 1 drop EACH EYE QHS 05/10/18 0.004% Eye Drop] Acetaminophen [Tylenol Tablet] 650 mg PO Q6H PRN PRN tablet 05/20/18 Aspirin/Acetaminophen/Caffeine 2 ea PO DAILY PRN 10/12/18 [Excedrin Migraine Caplet] Apixaban [Eliquis] 5 mg PO BID 10/13/18 Calcium Carbonate [Tums] 1,000 mg PO Q4H PRN PRN tab 10/13/18 Ensure Enlive 120 ml PO 4X/DAY 10/13/18 Nitroglycerin (INPATIENT USE) 0.4 mg SUBLINGUAL Q5M PRN tab.subl 10/13/18 [Nitrostat] Polyethylene Glycol 3350 [Miralax] 17 gm PO DAILY 10/13/18 Surgical History: Surgical History (Last Reviewed 06/05/18 @ 13:40 by Fito Alcala MD) H/O coronary artery bypass surgery (Resolved) Onset Date: 09/12/00 Z95.1 CABG X 5 vessels: CASTILLO to LAD,left radial artery to RCA, SVG to first snd second DX branches of the LAD and SVG to the lateral CX which had aberrant origin from the RCA 09/12/2000 History of coronary artery stent placement (Resolved) Onset Date: 05/13/18 Z95.5 PTCA/EASTON Anomalous LCX off of RCA with a 2.25 x 24 Promus Synergy and PTCA/EASTON of distal RCA in stent plaque protrusion with possible non occlusive thrombus w/ 3.5 x 32 Promus Synergy05/19/18 PTCA/EASTON distal RCA with a 3.5 x 38 Promus Syergy and EASTON mid RCA with a 4.0 x 32 Promus Synergy Stent 05/13/18 EASTON-Prox LAD w/ 3.5 mm x 20 mm Promus Stent 08/27/12 [id number]-[id number] & proximal RCA 06/21/2002 History of repair of hiatal hernia Z98.890, Z87.19 Surgical History: angioplasty - Stent., coronary bypass surgery, total hip arthroplasty, - - Hiatal hernia surgery. Psychiatric History: No pertinent psych hx Lives: Spouse/ Significant Other Smoking Status: Never smoker Tobacco Use: Non-smoker Alcohol: None Drugs: None - *Family History Maternal Family History: Family History (Last Reviewed 06/05/18 @ 13:40 by Fito Alcala MD) Father No problems noted. Mother Cancer Brother Throat cancer Brother COPD (chronic obstructive pulmonary disease) Brother No problems noted. Sister COPD (chronic obstructive pulmonary disease) Heart disease Sister COPD (chronic obstructive pulmonary disease) History Items: No pertinent history Paternal Family History: Family History (Last Reviewed 06/05/18 @ 13:40 by Fito Alcala MD) Father No problems noted. Mother Cancer Brother Throat cancer Brother COPD (chronic obstructive pulmonary disease) Brother No problems noted. Sister COPD (chronic obstructive pulmonary disease) Heart disease Sister COPD (chronic obstructive pulmonary disease) History Items: No pertinent history Review of Systems Constitutional: Reports: Weakness, Fatigue. Denies: Chills, Fever, Weight Change HEENT: Denies: Head Aches, Sinus Congestion, Sinus Drainage Cardiovascular: Denies: Chest Pain, Palpitations Respiratory: Denies: Cough, Shortness of breath at rest, Sputum production Gastrointestinal: Denies: Abdominal Pain, Nausea, Vomiting Genitourinary: Denies: Dysuria Musculoskeletal: Denies: Joint Pain, Joint Tenderness Skin: Denies: Rash, Wounds Neurological: Denies: Numbness, Tingling, Focal weakness Psychiatric: Denies: Anxiety, Depression, Homicidal Ideations, Suicidal Ideations Hematologic/ Lymphatic: Denies: Easy Bruising, Easy Bleeding VTE Information - Inpt Only VTE Present on Admission: Yes VTE Mechan Device Prophylaxis: Knee High ANTONIO Hose VTE Pharm Prophylaxis ordered?: No Reason prophylaxis not ordered:: Treatment Not Indicated Patient Problems: Active and Suspected Problems (Last Reviewed 06/05/18 @ 13:40 by Fito Alcala MD) Debility (Acute) Chest pain (Acute) Acute on chronic diastolic (congestive) heart failure (Acute) - Physical Exam General: Alert, Oriented x3, Cooperative HEENT: Atraumatic, PERRLA, EOMI, Normocephalic Neck: Supple, No JVD, Negative Carotid Bruits Lungs: Clear to auscultation, Normal air movement Cardiovascular: Regular rate, No murmurs Abdomen: Bowel Sounds Present, Soft, Non Tender Extremities: No edema, Capillary Refill Less than 3 Seconds Skin: No rashes, No breakdown Musculoskeletal: No Tenderness to Palpation of Joints or Extremities Neurological: Cranial nerves II-XII grossly intact Psych/Mental Status: Normal Affect, Appropriate Weight: 97.069 kg Body Mass Index (BMI) 32.5 Assessment/Plan All Active Problems (Last Reviewed 06/05/18 @ 13:40 by Fito Alcala MD) Acute respiratory failure with hypoxia (Acute) Pulmonary embolism (Acute) Debility (Acute) Chest pain (Acute) Acute on chronic diastolic (congestive) heart failure (Acute) Dyspnea on exertion (Acute) LUQ abdominal pain (Acute) NSTEMI (non-ST elevated myocardial infarction) (Acute) H/O coronary artery bypass surgery (Resolved 09/12/00) History of coronary artery stent placement (Resolved 05/13/18) Cellulitis (Resolved) Cellulitis and abscess of left lower extremity (Resolved) Chest pain (Resolved) Right pulmonary embolus (Resolved) 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 (Resolved) 83 year old male with below past medical history hospitalized for acute respiratory failure secondary to pulmonary embolism, complicated by acute on chronic diastolic heart failure, epistaxis, hemoptysis, admitted to TCU with debility, here for rehabilitation, strengthening, prior to discharge home with spouse. If he does not progress, consider hospice. * Debility - PT/OT. * Pain - Tylenol 1000MG TID, Tramadol 50MG Q6H PRN moderate pain, Oxycodone 5MG Q4H PRN severe pain. * Bowel - Miralax 17GM daily, Senna/colace 2 tablets BID, Dulcolax 10MG TX daily PRN. * Pneumonia vaccination - Administer Prevnar 13 and/or Pneumovax 23 as necessary. * DVT prophylaxis - Not necessary, already on Eliquis. * Pulmonary Embolism - Eliquis 5MG BID. * Coronary Artery Disease - Metoprolol succinate 50MG daily, Imdur 60MG daily, Aspirin 81MG daily, NTG 0.4MG Q5M PRN. * Migraine headaches - Excedrin 2 tablets daily PRN. * Hyperlipidemia - Atorvastatin 40NG QHS. * GERD - TUMS 1000MG Q4H PRN. * Nutrition - Ensure Enlive 120ML 4x/day, MVI daily. * Folate deficiency - Folic Acid 0.5MG daily. * Chronic diastolic heart failure - Metoprolol succinate 50MG daily, Imdur 60MG daily, Lasix 40MG daily. * Glaucoma - Xalatan 1GTT OU QHS. * Allergic rhinitis - Loratadine 10MG daily. * Hypomagnesemia - Magnesium Oxide 400MG daily. * Skin irritation - Calmoseptine TID. * BPH - Tamsulosin 0.4MG daily.
[2018-10-13] MEDS: Latanoprost 0.005% 1 Bottle 1 DRP EACH EYE (22:10)
[2018-10-13] MEDS: Menthol/Lanolin/Calamine/Znox 113 GM Tube 1 APPLIC TOPICAL (22:10)
[2018-10-13] MEDS: Atorvastatin Calcium 40 MG Tablet PO (22:11)
[2018-10-13] MEDS: Bisacodyl 10 MG Suppository RECTAL (22:16)
[2018-10-14 06:38] VITALS: BP 112/56; PULSE 72
[2018-10-14] MEDS: Menthol/Lanolin/Calamine/Znox 113 GM Tube 1 APPLIC TOPICAL ×3 (06:38→20:12)
[2018-10-14] MEDS: Loratadine 10 MG Tablet PO (06:38)
[2018-10-14] MEDS: Polyethylene Glycol 3350 17 GM PACKET PO (06:38)
[2018-10-14] MEDS: Metoprolol(XL)Succ 50 MG Tablet PO (06:38)
[2018-10-14] MEDS: APIXABAN 5 MG TABLET PO ×2 (06:38→18:02)
[2018-10-14] MEDS: Furosemide 40 MG Tablet PO (06:38)
[2018-10-14] MEDS: Isosorbide Mononitrate 60 MG Tablet PO (06:38)
[2018-10-14] MEDS: Senna/Docusate Sodium 1 Tablet 2 TABLET PO ×2 (06:43→18:02)
[2018-10-14] MEDS: Acetaminophen 500 MG Tablet 1000 MG PO ×3 (06:43→20:08)
[2018-10-14 07:17] VITALS: O2SAT 96
--- NOTE | 2018-10-14 10:37 | NURSING ---
Pt refusing lab draw today, attempted x2, dr mccoy updated, new order to retry tomorrow.
[2018-10-14] MEDS: Multivitamins,Ther W-Minerals Tablet 1 TABLET PO (12:14)
[2018-10-14] MEDS: Folic Acid 1 MG Tablet 0.5 MG PO (12:14)
[2018-10-14] MEDS: Magnesium Oxide 400 MG Tablet PO (12:15)
[2018-10-14] MEDS: Tuberculin,Purif.prot.deriv. 50 TU/ML Vial 5 ML ID (12:16)
[2018-10-14 15:25] VITALS: BP 134/47; PULSE 77; RESP 20; TEMP 37.1; O2SAT 97
[2018-10-14] MEDS: Calcium Carbonate 500 MG Tablet 1000 MG PO (15:39)
[2018-10-14] MEDS: Tamsulosin HCl 0.4 MG Capsule PO (18:02)
[2018-10-14] MEDS: Atorvastatin Calcium 40 MG Tablet PO (20:08)
[2018-10-14] MEDS: Latanoprost 0.005% 1 Bottle 1 DRP EACH EYE (20:11)
--- NOTE | 2018-10-14 20:55 | NURSING ---
Patient's sputum continues to be blood tinged. Dr. Tello notified. No new orders given.
[2018-10-14 21:59] LABS: Absolute Lymphocyte Count 2.09 X10^3/uL (0.83-4.51); Absolute Neutrophil Count 6.9 X10^3/uL (2.0-7.7); Basophil# 0.01 X10^3/uL; Basophil% 0.1 % (0-1); Eosinophil# 0.23 X10^3/uL; Eosinophils% 2.3 % (0-5); Hematocrit 28.1 % (40-54); Hemoglobin 8.9 g/dL (13.0-16.5); Lymphocyte # 2.09 X10^3/ul (4.0); Mean Corp Hgb Conc 31.7 g/dL (32-36); Mean Corpuscular Hgb 26.6 pg (27.0-32.0); Mean Corpuscular Volume 83.9 fL (80-94); Mean Platelet Vol. 9.8 fl (6.2-12.0); Monocyte# 0.63 X10^3/uL; Monocyte% 6.3 % (0-10); NRBC Flagged by Analyzer 0 % (0-5); Neutrophil # 6.94 X10^3/uL (2.7-7.7); Neutrophil % 69.7 % (47-70); Platelet Count 368 K/mm3 (150-450); RBC Distribution Width CV 18.6 % (11.6-14.6); RBC Distribution Width SD 56.8 fl (35.1-43.9); Red Blood Count 3.35 M/mm3 (4.6-6.2)
[2018-10-14 22:12] LABS: Anion Gap 3 (5-15); BUN 39 mg/dL (7-18); BUN/Creat Ratio 34.5 RATIO (10-20); Calcium,Total 8.8 mg/dL (8.5-10.1); Chloride 104 mmol/L (98-107); Creatinine, Serum 1.13 mg/dL (0.70-1.30); EST Glomerular Filtration Rate 66 mL/min (>60); Est Glom Filt Rate - Afr Amer 80 mL/min (>60); Estimated Creatinine Clearance 48.76 ml/min; Glucose 99 mg/dL (74-106); Potassium 4.6 mmol/L (3.5-5.1); Sodium Level 133 mmol/L (136-145)
[2018-10-15] MEDS: APIXABAN 5 MG TABLET PO ×2 (06:20→17:49)
[2018-10-15 06:21] VITALS: BP 115/68; PULSE 69
[2018-10-15] MEDS: Acetaminophen 500 MG Tablet 1000 MG PO ×3 (06:21→20:40)
[2018-10-15] MEDS: Metoprolol(XL)Succ 50 MG Tablet PO (06:21)
[2018-10-15] MEDS: Loratadine 10 MG Tablet PO (06:21)
[2018-10-15] MEDS: Isosorbide Mononitrate 60 MG Tablet PO (06:22)
[2018-10-15] MEDS: Furosemide 40 MG Tablet PO (06:22)
[2018-10-15] MEDS: Senna/Docusate Sodium 1 Tablet 2 TABLET PO (06:22)
[2018-10-15] MEDS: Menthol/Lanolin/Calamine/Znox 113 GM Tube 1 APPLIC TOPICAL ×3 (06:26→20:41)
[2018-10-15 10:38] VITALS: O2SAT 97
--- NOTE | 2018-10-15 11:53 | CASEMGMT ---
Addendum entered by Yari Mcconnell 10/15/18 15:39: Palliative Care visited pt and family - family/ would like more time to consider services. Will contact Palliative if agreeable. Original Note: Social Work Spoke with pt and about Palliative Care services using Palliative Care Screening Tool. Explained the pt's symptoms can be managed in the home with the goal of fewer hospitalizations. and pt agree to services. Referral made to [facility]. They will call the to schedule initial assessment. Will continue to follow. KELLI McnairW
[2018-10-15 14:55] VITALS: O2SAT 98
[2018-10-15 15:54] VITALS: BP 106/53; PULSE 72; RESP 24; TEMP 36.6; O2SAT 100
--- NOTE | 2018-10-15 16:20 | CHAPLAIN ---
Type of Pastoral Visit ___ Initial Visit _x__ Follow-up Visit ___ On-call Visit ___ General Patient Visit ___ Spiritual Assessment ___ Family Conference ___ Bereavement ___ Rapid Response ___ Code Blue ___ Other (describe below) Pastoral Care Referral From _x__ Patient ___ Family ___ Nurse ___ Physician ___ Cardiac Cath Tech ___ Chucking Lathe Operator ___ Other (describe below) Sacrament/Intervention ___ Active listening ___ Anointing ___ Episcopal ___ Bereavement ___ Communion ___ Olivia exploration ___ ___ Life review ___ Prayer ___ Reconciliation ___ Sacrament of Sick _x__ Supportive presence ___ Wedding ___ Other (describe below) Pastoral Comments patient seen in [facility] previously; family members gathered in room; pt is resting; offered support/presence with family;
--- NOTE | 2018-10-15 17:12 | RAD_ITS ---
STUDY: X-RAY CHEST REASON FOR EXAM: Male, 83 years old. Shortness of breath TECHNIQUE: PA and lateral views of the chest. COMPARISON: Prior study of 10/12/2018 FINDINGS: There is an infiltrate of the lateral right middle lobe, appearing similar to the previous study. There is no demonstrated pleural abnormality. Cardiomegaly is present. Status post sternotomy changes are seen. Normal mediastinum and donnie. Normal visualized pulmonary arteries. There are calcified plaques of the aortic arch. There are degenerative changes of the thoracic spine. There is a thoracolumbar dextroscoliosis. There are degenerative changes of the right shoulder joint. There is no demonstrated abnormality of the visualized soft tissue structures of the upper abdomen. RAD/Chest PA and Lateral IMPRESSION: Infiltrate of the lateral right middle lobe, similar to the previous study. Cardiomegaly. Status post sternotomy. Calcified plaques of the aortic arch. Electronically Signed: Celio Soriano MD at 19:14 EDT , Service support ,
[2018-10-15] MEDS: Tamsulosin HCl 0.4 MG Capsule PO (17:49)
[2018-10-15] MEDS: Latanoprost 0.005% 1 Bottle 1 DRP EACH EYE (20:41)
[2018-10-15] MEDS: Atorvastatin Calcium 40 MG Tablet PO (20:41)
--- NOTE | 2018-10-15 21:00 | NURSING ---
RN noticed pt more lethargic than Friday when perviously provided care. Pt barely able to hold eyes open, falling asleep while RN trying to talk to pt. RN sitting beside 1:1, therapeutic communication, much TLC provided. Pt informed RN he wanted to talk to his family in private at home. RN asked pt directly if he wanted to go to make arrangements prior to dying, pt said yes. Pt then informed RN he wanted to speak with his nephew justine clements. Per Dr Tello monitor patients performance over the weekend. Jose Martin son/POA aware and agreeable. Code status discussed at this time and Jose Martin POA/son wishes for pt to be a DNRCC. DNR identification form signed, purple bracelet applied.
[2018-10-16] MEDS: traMADol 50 MG Tablet PO ×2 (02:59→11:42)
[2018-10-16 06:20] VITALS: O2SAT 97
[2018-10-16 06:41] VITALS: BP 116/53; PULSE 69
[2018-10-16] MEDS: Loratadine 10 MG Tablet PO (06:41)
[2018-10-16] MEDS: Metoprolol(XL)Succ 50 MG Tablet PO (06:41)
[2018-10-16] MEDS: Furosemide 40 MG Tablet PO (06:42)
[2018-10-16] MEDS: Menthol/Lanolin/Calamine/Znox 113 GM Tube 1 APPLIC TOPICAL ×3 (06:42→20:48)
[2018-10-16] MEDS: Acetaminophen 500 MG Tablet 1000 MG PO (06:42)
[2018-10-16] MEDS: APIXABAN 5 MG TABLET PO ×2 (06:42→16:48)
[2018-10-16] MEDS: Isosorbide Mononitrate 60 MG Tablet PO (06:42)
[2018-10-16] MEDS: Senna/Docusate Sodium 1 Tablet 2 TABLET PO ×2 (06:42→16:47)
[2018-10-16] MEDS: Folic Acid 1 MG Tablet 0.5 MG PO (09:12)
[2018-10-16] MEDS: Multivitamins,Ther W-Minerals Tablet 1 TABLET PO (09:13)
[2018-10-16] MEDS: Magnesium Oxide 400 MG Tablet PO (09:13)
--- NOTE | 2018-10-16 14:23 | NURSING ---
TRIED TO ADMINISTER ROUTINE TYLENOL BUT R' REFUSED. HE STATES IT MAKES HIM SICK AND WANTS IT D/C'D ALTOGETHER. WHEN ASKED HOW HIS HEAD FELT, HE STATED IT'S FINE. FAMILY AT SIDE. EXPLAINED THAT THERE IS AN ORDER FOR OXYIR, BUT REFUSED AT THIS TIME. WILL UPDATE FOR D'CING TYLENOL. WILL MONITOR.
[2018-10-16 15:47] VITALS: BP 110/62; PULSE 76; RESP 20; TEMP 37; O2SAT 98
[2018-10-16] MEDS: Tamsulosin HCl 0.4 MG Capsule PO (16:47)
[2018-10-16] MEDS: oxyCODONE 5 MG Tablet PO (16:48)
--- NOTE | 2018-10-16 17:41 | NURSING ---
pt requesting that tylenol be dc'd makes me sick. Dr Tello updated. ordered dc'd
[2018-10-16] MEDS: Latanoprost 0.005% 1 Bottle 1 DRP EACH EYE (20:45)
[2018-10-16] MEDS: Atorvastatin Calcium 40 MG Tablet PO (20:46)
[2018-10-17 06:08] VITALS: BP 126/63; PULSE 71
[2018-10-17] MEDS: APIXABAN 5 MG TABLET PO ×2 (06:08→17:22)
[2018-10-17] MEDS: Loratadine 10 MG Tablet PO (06:08)
[2018-10-17] MEDS: Furosemide 40 MG Tablet PO (06:08)
[2018-10-17] MEDS: Isosorbide Mononitrate 60 MG Tablet PO (06:08)
[2018-10-17] MEDS: Metoprolol(XL)Succ 50 MG Tablet PO (06:08)
[2018-10-17] MEDS: Menthol/Lanolin/Calamine/Znox 113 GM Tube 1 APPLIC TOPICAL ×3 (06:10→21:26)
[2018-10-17 07:20] VITALS: O2SAT 98
[2018-10-17] MEDS: Magnesium Oxide 400 MG Tablet PO (08:46)
[2018-10-17] MEDS: Multivitamins,Ther W-Minerals Tablet 1 TABLET PO (08:47)
[2018-10-17] MEDS: Folic Acid 1 MG Tablet 0.5 MG PO (08:47)
[2018-10-17] MEDS: traMADol 50 MG Tablet PO (09:58)
[2018-10-17 11:38] VITALS: PULSE 82; RESP 18
[2018-10-17] MEDS: Ipratropium/Albuterol Sulfate 3 ML AMPUL.NEB INHALATION (11:38)
[2018-10-17] MEDS: Calcium Carbonate 500 MG Tablet 1000 MG PO (11:50)
[2018-10-17 16:00] VITALS: BP 104/55; PULSE 64; RESP 17; TEMP 36.9; O2SAT 98
[2018-10-17] MEDS: oxyCODONE 5 MG Tablet PO (17:20)
[2018-10-17] MEDS: Tamsulosin HCl 0.4 MG Capsule PO (17:22)
[2018-10-17] MEDS: Senna/Docusate Sodium 1 Tablet 2 TABLET PO (17:24)
[2018-10-17] MEDS: Atorvastatin Calcium 40 MG Tablet PO (21:28)
[2018-10-17] MEDS: Latanoprost 0.005% 1 Bottle 1 DRP EACH EYE (21:28)
[2018-10-18] MEDS: APIXABAN 5 MG TABLET PO ×2 (06:12→16:43)
[2018-10-18] MEDS: Loratadine 10 MG Tablet PO (06:12)
[2018-10-18] MEDS: Furosemide 40 MG Tablet PO (06:13)
[2018-10-18] MEDS: Isosorbide Mononitrate 60 MG Tablet PO (06:13)
[2018-10-18] MEDS: Senna/Docusate Sodium 1 Tablet 2 TABLET PO (06:13)
[2018-10-18 06:14] VITALS: BP 115/76; PULSE 71
[2018-10-18] MEDS: Metoprolol(XL)Succ 50 MG Tablet PO (06:14)
[2018-10-18] MEDS: Menthol/Lanolin/Calamine/Znox 113 GM Tube 1 APPLIC TOPICAL ×3 (06:17→21:14)
[2018-10-18 07:22] VITALS: O2SAT 97
[2018-10-18] MEDS: Multivitamins,Ther W-Minerals Tablet 1 TABLET PO (08:27)
[2018-10-18] MEDS: Magnesium Oxide 400 MG Tablet PO (08:27)
[2018-10-18] MEDS: Folic Acid 1 MG Tablet 0.5 MG PO (08:28)
[2018-10-18] MEDS: traMADol 50 MG Tablet PO (10:33)
[2018-10-18 16:00] VITALS: BP 100/53; PULSE 71; RESP 20; TEMP 37.2; O2SAT 5
[2018-10-18] MEDS: Tamsulosin HCl 0.4 MG Capsule PO (16:43)
[2018-10-18] MEDS: Latanoprost 0.005% 1 Bottle 1 DRP EACH EYE (21:12)
[2018-10-18] MEDS: Atorvastatin Calcium 40 MG Tablet PO (21:15)
--- NOTE | 2018-10-19 01:27 | NURSING ---
Pt reporting chest pain. Vital obtained. HR reg and tachy. Pt pain 7/10 rubbing chest, pt unable to describe pain. Pt denies pain radiating. EKG obtained Dr Omer zuleta. N.O. Nitro X1.
[2018-10-19 05:31] VITALS: BP 127/60; PULSE 67
[2018-10-19] MEDS: APIXABAN 5 MG TABLET PO ×2 (05:31→17:03)
[2018-10-19] MEDS: Senna/Docusate Sodium 1 Tablet 2 TABLET PO (05:31)
[2018-10-19] MEDS: Isosorbide Mononitrate 60 MG Tablet PO (05:31)
[2018-10-19] MEDS: Furosemide 40 MG Tablet PO (05:31)
[2018-10-19] MEDS: Metoprolol(XL)Succ 50 MG Tablet PO (05:31)
[2018-10-19] MEDS: Loratadine 10 MG Tablet PO (05:31)
[2018-10-19] MEDS: Menthol/Lanolin/Calamine/Znox 113 GM Tube 1 APPLIC TOPICAL ×3 (05:31→20:09)
[2018-10-19 06:57] VITALS: O2SAT 97
[2018-10-19] MEDS: Magnesium Oxide 400 MG Tablet PO (08:17)
[2018-10-19] MEDS: Folic Acid 1 MG Tablet 0.5 MG PO (08:17)
[2018-10-19] MEDS: Multivitamins,Ther W-Minerals Tablet 1 TABLET PO (08:17)
[2018-10-19] MEDS: traMADol 50 MG Tablet PO (14:45)
[2018-10-19 16:00] VITALS: BP 109/62; PULSE 68; RESP 18; TEMP 37.1; O2SAT 100
[2018-10-19] MEDS: Tamsulosin HCl 0.4 MG Capsule PO (17:03)
[2018-10-19] MEDS: Atorvastatin Calcium 40 MG Tablet PO (20:04)
[2018-10-19] MEDS: Latanoprost 0.005% 1 Bottle 1 DRP EACH EYE (20:08)
[2018-10-20 05:47] VITALS: BP 121/58; PULSE 69
[2018-10-20] MEDS: Loratadine 10 MG Tablet PO (05:47)
[2018-10-20] MEDS: Isosorbide Mononitrate 60 MG Tablet PO (05:47)
[2018-10-20] MEDS: Metoprolol(XL)Succ 50 MG Tablet PO (05:47)
[2018-10-20] MEDS: APIXABAN 5 MG TABLET PO ×2 (05:47→16:56)
[2018-10-20] MEDS: Furosemide 40 MG Tablet PO (05:47)
[2018-10-20] MEDS: Menthol/Lanolin/Calamine/Znox 113 GM Tube 1 APPLIC TOPICAL ×3 (05:48→19:50)
[2018-10-20] MEDS: Folic Acid 1 MG Tablet 0.5 MG PO (08:59)
[2018-10-20] MEDS: Multivitamins,Ther W-Minerals Tablet 1 TABLET PO (08:59)
[2018-10-20] MEDS: Magnesium Oxide 400 MG Tablet PO (08:59)
--- NOTE | 2018-10-20 13:22 | PHA.CONS_ITS ---
<Praveen Osborne C - Last Filed: 10/20/18 15:06> Progress Note - Pharmacy Subjective: [] TCU Admission Objective: Allergies diazepam [From Valium] Allergy (Intermediate, Verified 10/04/18 11:24) Other HALLUCINATIONS morphine Allergy (Intermediate, Verified 10/04/18 11:24) Other TWITCHES Current Medications Generic Name Dose Route Start Last Admin Trade Name Freq PRN Reason Stop Dose Admin Albuterol Sulfate 2.5 mg 10/15/18 19:57 Ventolin Aerosols INHALATION Q2H PRN PRN WHEEZING Albuterol/Ipratropium 3 ml 10/15/18 19:57 10/17/18 11:38 Duoneb INHALATION 3 ml Q6HWA.RT PRN Administration SHORTNESS OF BREATH Apixaban 5 mg 10/13/18 18:00 10/20/18 05:47 Eliquis PO 5 mg BID JUAN Administration Atorvastatin Calcium 40 mg 10/13/18 22:00 10/19/18 20:04 Lipitor PO 40 mg QHS JUAN Administration Bisacodyl 10 mg 10/13/18 16:52 10/13/18 22:16 Dulcolax RECTAL 10 mg DAILY PRN Administration Constipation Calamine/Phenol 1 applic 10/13/18 22:00 10/20/18 05:48 Calmoseptine Ointment TOPICAL 1 applicatio TID JUAN Administration Protocol Calcium Carbonate 1,000 mg 10/13/18 16:53 10/17/18 11:50 Tums PO 1,000 mg Q4H PRN PRN Administration INDIGESTION Folic Acid 0.5 mg 10/14/18 08:00 10/20/18 08:59 Folic Acid PO 0.5 mg DAILY@0800 JUAN Administration Furosemide 40 mg 10/14/18 06:00 10/20/18 05:47 Lasix PO 40 mg DAILY JUAN Administration Isosorbide Mononitrate 60 mg 10/14/18 06:00 10/20/18 05:47 Imdur PO 60 mg DAILY JUAN Administration Latanoprost 1 drop 10/13/18 22:00 10/19/18 20:08 Xalatan Opthalmic EACH EYE 1 drop QHS JUAN Administration Loratadine 10 mg 10/14/18 06:00 10/20/18 05:47 Claritin PO 10 mg DAILY JUAN Administration Magnesium Oxide 400 mg 10/14/18 08:00 10/20/18 08:59 Mag-Ox 400 PO 400 mg DAILYCM [facility] Administration Metoprolol Succinate 50 mg 10/14/18 06:00 10/20/18 05:47 Toprol Xl (Beta Luis Felipe) PO 50 mg DAILY [facility] Administration Multivitamins/Minerals 1 tablet 10/14/18 08:00 10/20/18 08:59 Multivitamin With Minerals PO 1 tablet DAILY@0800 [facility] Administration Nitroglycerin 0.4 mg 10/13/18 16:53 Nitrostat SUBLINGUAL Q5M PRN CARDIAC/CHEST PAIN Nutritional Formula (Lactose Free) 120 ml 10/13/18 17:00 10/20/18 11:21 Ensure Enlive PO 120 ml 4X/DAY [facility] Administration Oxycodone HCl 5 mg 10/13/18 20:50 10/17/18 17:20 Oxyir PO 5 mg Q4H PRN PRN Administration SEVERE PAIN (6-10/10) Polyethylene Glycol 17 gm 10/14/18 06:00 10/20/18 05:48 Miralax PO Not Given DAILY [facility] Senna/Docusate Sodium 2 tablet 10/14/18 06:00 10/20/18 05:47 Senokot-S, Renata-Colace PO Not Given BID [facility] Tamsulosin HCl 0.4 mg 10/14/18 17:30 10/19/18 17:03 Flomax PO 0.4 mg DAILY@1730 [facility] Administration Tramadol HCl 50 mg 10/13/18 20:50 10/19/18 14:45 Ultram PO 50 mg Q6H PRN PRN Administration MODERATE PAIN (4-5/10) Tuberculin PPD 5 tu 10/21/18 10:00 Tubersol, Aplisol, Ppd ID 10/21/18 10:01 X1 ONE Problem List (Last Reviewed 06/05/18 @ 13:40 by Fito Alcala MD) Debility (Acute) Chest pain (Acute) Coronary artery disease (Chronic) Acute on chronic diastolic (congestive) heart failure (Acute) Hypertension (Chronic) Pulmonary hypertension (Chronic) Stroke (Chronic) Lumbar spinal stenosis (Chronic) Hypomagnesemia (Chronic) BPH (benign prostatic hyperplasia) (Chronic) Glaucoma (Chronic) Constipation (Chronic) Vital Signs Temp Pulse Resp BP Pulse Ox 98.7 F 69 18 121/58 H 100 07/22/19 16:00 10/20/18 05:47 10/19/18 16:00 10/20/18 05:47 10/19/18 16:00 Oxygen Flow Rate (L/min) 5 Oxygen Delivery Method Nasal Cannula Weight: 97.069 kg Body Mass Index (BMI) 32.5 Sodium 133 mmol/L (136-145) L 10/14/18 21:50 Potassium 4.6 mmol/L (3.5-5.1) 10/14/18 21:50 Chloride 104 mmol/L (98-107) 10/14/18 21:50 Carbon Dioxide 26.0 mmol/L (21.0-32.0) 10/14/18 21:50 3 (5-15) L 10/14/18 21:50 BUN 39 mg/dL (7-18) H 10/14/18 21:50 1.13 mg/dL (0.70-1.30) 10/14/18 21:50 Est GFR (MDRD) Af Amer 80 mL/min (>60) 10/14/18 21:50 Est GFR (MDRD) Non-Af 66 mL/min (>60) 10/14/18 21:50 34.5 RATIO (10-20) H 10/14/18 21:50 Glucose 99 mg/dL (74-106) 10/14/18 21:50 Assessment/Plan: 1) Pain: Oxycodone 5mg po q4h prn for severe pain, Tramadol 50mg po q6h prn for moderate pain. Please continue to monitor prn usage and for signs/symptoms of increased/decreased pain. 2) Hyperlipidemia: Atorvastatin 40mg po qhs. Pt's LFTs and Lipid panel are within normal limits. Please continue to monitor. 3) GERD: Tums 1000mg po q4h prn. Please continue to monitor for signs/symptoms of GERD *4) Hypomagnesemia: Mag-Ox 400mg po daily with food. I could not find a recent magnesium level in the pt's chart. Please consider a yearly level. Thanks 5) BPH: Tamsulosin 0.4mg po daily at 1730. Please continue to monitor for signs/symptoms of BPH. 6) Allergic Rhinitis: Loratadine 10mg po daily. Please continue to monitor for signs/symptoms of allergies 7) Pulmonary Embolism: Eliquis 5mg po bid. Please continue to monitor for signs/symptoms of bleeding and/or clot 8) CHF, CAD: Metoprolol Succinate 50mg po daily, Imdur 60mg daily, Lasix 40mg po daily, NTG 0.4mg po SL q5m prn. Pt's average blood pressure for the last 10 readings is 113.4/59.5. Pt's pulse rate and rhythm is normal. Pt's Na is 133, K+ is 4.6, SrCr is 1.13. Please continue to monitor. Psychotropic Medications: none Unnecessary Medications: none *Bowel Regimen: Bisacodyl 10mg rectally daily prn for constipation, Miralax 17gm po daily, Senna/Docusate 2 tablets po bid. Pt has only received 6 out of 7 Miralax doses due to refusal and/or diarrhea. Please consider making this prn. thanks Date of Note:: 10/20/18 - Provider Comments Provider responsibility: Provider responsible to enter orders to implement recommendations <Ashvin Tello Chi - Last Filed: 10/20/18 16:59> Progress Note - Pharmacy Subjective: [] Objective: Allergies diazepam [From Valium] Allergy (Intermediate, Verified 10/04/18 11:24) Other HALLUCINATIONS morphine Allergy (Intermediate, Verified 10/04/18 11:24) Other TWITCHES Current Medications Generic Name Dose Route Start Last Admin Trade Name Freq PRN Reason Stop Dose Admin Albuterol Sulfate 2.5 mg 10/15/18 19:57 Ventolin Aerosols INHALATION Q2H PRN PRN WHEEZING Albuterol/Ipratropium 3 ml 10/15/18 19:57 10/17/18 11:38 Duoneb INHALATION 3 ml Q6HWA.RT PRN Administration SHORTNESS OF BREATH Apixaban 5 mg 10/13/18 18:00 10/20/18 16:56 Eliquis PO 5 mg BID JUAN Administration Atorvastatin Calcium 40 mg 10/13/18 22:00 10/19/18 20:04 Lipitor PO 40 mg QHS JUAN Administration Bisacodyl 10 mg 10/13/18 16:52 10/13/18 22:16 Dulcolax RECTAL 10 mg DAILY PRN Administration Constipation Calamine/Phenol 1 applic 10/13/18 22:00 10/20/18 14:00 Calmoseptine Ointment TOPICAL 1 applicatio TID [facility] Administration Protocol Calcium Carbonate 1,000 mg 10/13/18 16:53 10/17/18 11:50 Tums PO 1,000 mg Q4H PRN PRN Administration INDIGESTION Folic Acid 0.5 mg 10/14/18 08:00 10/20/18 08:59 Folic Acid PO 0.5 mg DAILY@0800 [facility] Administration Furosemide 40 mg 10/14/18 06:00 10/20/18 05:47 Lasix PO 40 mg DAILY JUAN Administration Isosorbide Mononitrate 60 mg 10/14/18 06:00 10/20/18 05:47 Imdur PO 60 mg DAILY [facility] Administration Latanoprost 1 drop 10/13/18 22:00 10/19/18 20:08 Xalatan Opthalmic EACH EYE 1 drop QHS [facility] Administration Loratadine 10 mg 10/14/18 06:00 10/20/18 05:47 Claritin PO 10 mg DAILY [facility] Administration Magnesium Oxide 400 mg 10/14/18 08:00 10/20/18 08:59 Mag-Ox 400 PO 400 mg DAILYCM [facility] Administration Metoprolol Succinate 50 mg 10/14/18 06:00 10/20/18 05:47 Toprol Xl (Beta Luis Felipe) PO 50 mg DAILY [facility] Administration Multivitamins/Minerals 1 tablet 10/14/18 08:00 10/20/18 08:59 Multivitamin With Minerals PO 1 tablet DAILY@0800 [facility] Administration Nitroglycerin 0.4 mg 10/13/18 16:53 Nitrostat SUBLINGUAL Q5M PRN CARDIAC/CHEST PAIN Nutritional Formula (Lactose Free) 120 ml 10/13/18 17:00 10/20/18 16:55 Ensure Enlive PO 120 ml 4X/DAY [facility] Administration Oxycodone HCl 5 mg 10/13/18 20:50 10/17/18 17:20 Oxyir PO 5 mg Q4H PRN PRN Administration SEVERE PAIN (6-10/10) Polyethylene Glycol 17 gm 10/14/18 06:00 10/20/18 05:48 Miralax PO Not Given DAILY [facility] Senna/Docusate Sodium 2 tablet 10/14/18 06:00 10/20/18 16:56 Senokot-S, Renata-Colace PO 1 tablet BID JUAN Administration Tamsulosin HCl 0.4 mg 10/14/18 17:30 10/20/18 16:56 Flomax PO 0.4 mg DAILY@1730 JUAN Administration Tramadol HCl 50 mg 10/13/18 20:50 10/19/18 14:45 Ultram PO 50 mg Q6H PRN PRN Administration MODERATE PAIN (4-5/10) Tuberculin PPD 5 tu 10/21/18 10:00 Tubersol, Aplisol, Ppd ID 10/21/18 10:01 X1 ONE Problem List (Last Reviewed 06/05/18 @ 13:40 by Fito Alcala MD) Debility (Acute) Chest pain (Acute) Coronary artery disease (Chronic) Acute on chronic diastolic (congestive) heart failure (Acute) Hypertension (Chronic) Pulmonary hypertension (Chronic) Stroke (Chronic) Lumbar spinal stenosis (Chronic) Hypomagnesemia (Chronic) BPH (benign prostatic hyperplasia) (Chronic) Glaucoma (Chronic) Constipation (Chronic) Vital Signs Temp Pulse Resp BP Pulse Ox 98.4 F 68 20 H 101/55 L 100 10/20/18 15:06 10/20/18 15:06 10/20/18 15:06 10/20/18 15:06 10/20/18 15:06 Oxygen Flow Rate (L/min) 5 Oxygen Delivery Method Nasal Cannula Weight: 97.069 kg Body Mass Index (BMI) 32.5 Sodium 133 mmol/L (136-145) L 10/14/18 21:50 Potassium 4.6 mmol/L (3.5-5.1) 10/14/18 21:50 Chloride 104 mmol/L (98-107) 10/14/18 21:50 Carbon Dioxide 26.0 mmol/L (21.0-32.0) 10/14/18 21:50 3 (5-15) L 10/14/18 21:50 BUN 39 mg/dL (7-18) H 10/14/18 21:50 1.13 mg/dL (0.70-1.30) 10/14/18 21:50 Est GFR (MDRD) Af Amer 80 mL/min (>60) 10/14/18 21:50 Est GFR (MDRD) Non-Af 66 mL/min (>60) 10/14/18 21:50 34.5 RATIO (10-20) H 10/14/18 21:50 Glucose 99 mg/dL (74-106) 10/14/18 21:50 Assessment/Plan: Psychotropic Medications: Unnecessary Medications: Bowel Regimen: - Provider Comments Provider responsibility: Provider responsible to enter orders to implement recommendations Provider Comments to Recommendations by Pharmacy: Agree
[2018-10-20 15:06] VITALS: BP 101/55; PULSE 68; RESP 20; TEMP 36.9; O2SAT 100
[2018-10-20] MEDS: Tamsulosin HCl 0.4 MG Capsule PO (16:56)
[2018-10-20] MEDS: Senna/Docusate Sodium 1 Tablet 2 TABLET PO (16:56)
[2018-10-20] MEDS: Atorvastatin Calcium 40 MG Tablet PO (19:48)
[2018-10-20] MEDS: Latanoprost 0.005% 1 Bottle 1 DRP EACH EYE (19:49)
[2018-10-21] MEDS: Furosemide 40 MG Tablet PO (05:25)
[2018-10-21] MEDS: APIXABAN 5 MG TABLET PO ×2 (05:26→17:37)
[2018-10-21] MEDS: Loratadine 10 MG Tablet PO (05:26)
[2018-10-21] MEDS: Senna/Docusate Sodium 1 Tablet 2 TABLET PO ×2 (05:26→17:37)
[2018-10-21] MEDS: Isosorbide Mononitrate 60 MG Tablet PO (05:26)
[2018-10-21 05:27] VITALS: BP 155/77; PULSE 73
[2018-10-21] MEDS: Metoprolol(XL)Succ 50 MG Tablet PO (05:27)
[2018-10-21] MEDS: Menthol/Lanolin/Calamine/Znox 113 GM Tube 1 APPLIC TOPICAL ×3 (05:30→19:58)
[2018-10-21] MEDS: Folic Acid 1 MG Tablet 0.5 MG PO (11:08)
[2018-10-21] MEDS: Multivitamins,Ther W-Minerals Tablet 1 TABLET PO (11:09)
[2018-10-21] MEDS: Magnesium Oxide 400 MG Tablet PO (11:09)
[2018-10-21] MEDS: Tuberculin,Purif.prot.deriv. 50 TU/ML Vial 5 ML ID (11:12)
--- NOTE | 2018-10-21 14:31 | CASEMGMT ---
Social Work IDT met with patient and for care plan meeting. Discussed progress in therapy. Patient is mod to total assist for ADLs and transfers. Difficultly walking over 3 ft in the room as pt gets very tired and has resp. issues. Pt states his goal is to try and get stronger and keep working with therapy. Therapy will adjust treating schedule for optimal time of energy from pt. Discussed Palliative services again - pt and both stated I thought I agreed to those Briefly summarized Palliative services and benefits - pt and agreed for referral to be made again. Pt goal is still to discharge home. Explained to and pt to see how the next couple days go with therapy, and will revisit progress early next week and determine a safe discharge plan. Spoke with nurse at [facility] to revisit pt for Palliative services. Nurse will schedule appt with . Will continue to follow. KELLI Mcnair
[2018-10-21 15:02] VITALS: BP 104/59; PULSE 80; RESP 16; TEMP 36.4; O2SAT 98
[2018-10-21] MEDS: Tamsulosin HCl 0.4 MG Capsule PO (17:38)
[2018-10-21] MEDS: Atorvastatin Calcium 40 MG Tablet PO (19:56)
[2018-10-21] MEDS: Latanoprost 0.005% 1 Bottle 1 DRP EACH EYE (19:58)
[2018-10-22 06:48] VITALS: BP 137/56; PULSE 63
[2018-10-22] MEDS: Senna/Docusate Sodium 1 Tablet 2 TABLET PO (06:48)
[2018-10-22] MEDS: APIXABAN 5 MG TABLET PO ×2 (06:48→17:48)
[2018-10-22] MEDS: Metoprolol(XL)Succ 50 MG Tablet PO (06:48)
[2018-10-22] MEDS: Loratadine 10 MG Tablet PO (06:48)
[2018-10-22] MEDS: Furosemide 40 MG Tablet PO (06:49)
[2018-10-22] MEDS: Isosorbide Mononitrate 60 MG Tablet PO (06:49)
[2018-10-22] MEDS: Menthol/Lanolin/Calamine/Znox 113 GM Tube 1 APPLIC TOPICAL ×3 (06:53→20:12)
[2018-10-22] MEDS: traMADol 50 MG Tablet PO (11:37)
[2018-10-22 16:00] VITALS: BP 118/59; PULSE 67; RESP 20; TEMP 36.5; O2SAT 99
[2018-10-22] MEDS: Tamsulosin HCl 0.4 MG Capsule PO (17:49)
[2018-10-22] MEDS: Latanoprost 0.005% 1 Bottle 1 DRP EACH EYE (20:10)
[2018-10-22] MEDS: Atorvastatin Calcium 40 MG Tablet PO (20:12)
[2018-10-23] MEDS: Senna/Docusate Sodium 1 Tablet 2 TABLET PO (05:27)
[2018-10-23 05:28] VITALS: BP 119/52; PULSE 64
[2018-10-23] MEDS: Isosorbide Mononitrate 60 MG Tablet PO (05:28)
[2018-10-23] MEDS: Loratadine 10 MG Tablet PO (05:28)
[2018-10-23] MEDS: Metoprolol(XL)Succ 50 MG Tablet PO (05:28)
[2018-10-23] MEDS: APIXABAN 5 MG TABLET PO ×2 (05:29→16:58)
[2018-10-23] MEDS: Furosemide 40 MG Tablet PO (05:31)
[2018-10-23] MEDS: Menthol/Lanolin/Calamine/Znox 113 GM Tube 1 APPLIC TOPICAL ×3 (05:33→20:37)
[2018-10-23 06:58] VITALS: O2SAT 98
[2018-10-23] MEDS: Magnesium Oxide 400 MG Tablet PO (08:46)
[2018-10-23] MEDS: Folic Acid 1 MG Tablet 0.5 MG PO (08:46)
[2018-10-23] MEDS: Multivitamins,Ther W-Minerals Tablet 1 TABLET PO (08:46)
--- NOTE | 2018-10-23 13:34 | MDS.RN ---
Information for the mds was obtained from review of the medication record, interview of resident, staff, and direct observation of resident's care.
--- NOTE | 2018-10-23 14:38 | CASEMGMT ---
Social Work Son, Rigo, contacted to discuss discharge planning for pt. Inquired about Medicaid and eligibility. Discussed at length with son about Medicaid requirements. to bring in some financial information. Contacted [facility] to obtain information on eligibility requirements. Met with and pt to discuss financial information. Pt is over resources but could liquidate and spend down to become eligible. hesitant on applying for Medicaid due to Estate Recovery. Expressed understanding of the difficulty of that decision; however, the Medicaid process and securing private duty aides takes time. stated she will think about it and let SW know. F/u with son to answer more questions and relay conversation with pt and . Son stated he will look into liquidating resources for eligibility and speak with his mom. Will continue to follow. KELLI McnairW
[2018-10-23 15:20] VITALS: BP 106/57; PULSE 78; RESP 21; TEMP 37; O2SAT 97
[2018-10-23] MEDS: Tamsulosin HCl 0.4 MG Capsule PO (16:58)
[2018-10-23] MEDS: Latanoprost 0.005% 1 Bottle 1 DRP EACH EYE (20:36)
[2018-10-23] MEDS: Atorvastatin Calcium 40 MG Tablet PO (20:36)
[2018-10-24 05:47] VITALS: BP 139/73; PULSE 71
[2018-10-24] MEDS: Loratadine 10 MG Tablet PO (05:47)
[2018-10-24] MEDS: Menthol/Lanolin/Calamine/Znox 113 GM Tube 1 APPLIC TOPICAL ×3 (05:47→21:29)
[2018-10-24] MEDS: Isosorbide Mononitrate 60 MG Tablet PO (05:47)
[2018-10-24] MEDS: Furosemide 40 MG Tablet PO (05:47)
[2018-10-24] MEDS: APIXABAN 5 MG TABLET PO ×2 (05:47→16:55)
[2018-10-24] MEDS: Senna/Docusate Sodium 1 Tablet 2 TABLET PO ×2 (05:47→16:55)
[2018-10-24] MEDS: Metoprolol(XL)Succ 50 MG Tablet PO (05:47)
[2018-10-24 07:22] VITALS: O2SAT 97
[2018-10-24] MEDS: Folic Acid 1 MG Tablet 0.5 MG PO (09:33)
[2018-10-24] MEDS: Magnesium Oxide 400 MG Tablet PO (09:34)
[2018-10-24] MEDS: Multivitamins,Ther W-Minerals Tablet 1 TABLET PO (09:34)
[2018-10-24 15:43] VITALS: BP 120/62; PULSE 71; RESP 18; TEMP 36.9; O2SAT 98
[2018-10-24] MEDS: Tamsulosin HCl 0.4 MG Capsule PO (16:55)
[2018-10-24] MEDS: Atorvastatin Calcium 40 MG Tablet PO (21:27)
[2018-10-24] MEDS: Latanoprost 0.005% 1 Bottle 1 DRP EACH EYE (21:29)
[2018-10-25] MEDS: Furosemide 40 MG Tablet PO (05:56)
[2018-10-25] MEDS: Senna/Docusate Sodium 1 Tablet 2 TABLET PO ×2 (05:56→17:17)
[2018-10-25] MEDS: Isosorbide Mononitrate 60 MG Tablet PO (05:56)
[2018-10-25] MEDS: APIXABAN 5 MG TABLET PO ×2 (05:56→17:17)
[2018-10-25] MEDS: Loratadine 10 MG Tablet PO (05:56)
[2018-10-25 05:57] VITALS: BP 123/63; PULSE 63
[2018-10-25] MEDS: Metoprolol(XL)Succ 50 MG Tablet PO (05:57)
[2018-10-25] MEDS: Menthol/Lanolin/Calamine/Znox 113 GM Tube 1 APPLIC TOPICAL ×3 (05:59→19:47)
[2018-10-25] MEDS: Multivitamins,Ther W-Minerals Tablet 1 TABLET PO (09:02)
[2018-10-25] MEDS: Folic Acid 1 MG Tablet 0.5 MG PO (09:02)
[2018-10-25] MEDS: Magnesium Oxide 400 MG Tablet PO (09:02)
--- NOTE | 2018-10-25 10:49 | NURSING ---
pt unpleasant, grumpy & very hard to please. Assisted to [facility] with 2 max assist for standing w/use of [facility] for transfer. Treats staff like we are beneath him and we should know his every need without asking him questions.
[2018-10-25 16:00] VITALS: BP 135/67; PULSE 71; RESP 20; TEMP 37.1; O2SAT 99
[2018-10-25] MEDS: Tamsulosin HCl 0.4 MG Capsule PO (17:17)
[2018-10-25] MEDS: Latanoprost 0.005% 1 Bottle 1 DRP EACH EYE (19:45)
[2018-10-25] MEDS: Atorvastatin Calcium 40 MG Tablet PO (19:45)
[2018-10-25 19:55] VITALS: PULSE 70; O2SAT 96
[2018-10-25 19:59] VITALS: PULSE 70; O2SAT 96
--- NOTE | 2018-10-26 00:15 | NURSING ---
Pt will multiple loose stools this shift. Stools severely mucus like. Stool sent to the lab.
[2018-10-26] MEDS: Menthol/Lanolin/Calamine/Znox 113 GM Tube 1 APPLIC TOPICAL ×3 (06:13→19:47)
[2018-10-26 06:14] VITALS: BP 131/60; PULSE 62
[2018-10-26] MEDS: Isosorbide Mononitrate 60 MG Tablet PO (06:14)
[2018-10-26] MEDS: APIXABAN 5 MG TABLET PO ×2 (06:14→18:10)
[2018-10-26] MEDS: Metoprolol(XL)Succ 50 MG Tablet PO (06:14)
[2018-10-26] MEDS: Furosemide 40 MG Tablet PO (06:14)
[2018-10-26] MEDS: Loratadine 10 MG Tablet PO (06:14)
[2018-10-26 07:00] VITALS: O2SAT 99
--- NOTE | 2018-10-26 07:02 | MDS.RN ---
Information for the mds was obtained from review of the clinical record, interview of resident, staff, and direct observation of resident's care.
[2018-10-26] MEDS: Multivitamins,Ther W-Minerals Tablet 1 TABLET PO (09:11)
[2018-10-26] MEDS: Magnesium Oxide 400 MG Tablet PO (09:11)
[2018-10-26] MEDS: Folic Acid 1 MG Tablet 0.5 MG PO (12:46)
--- NOTE | 2018-10-26 15:04 | PCM.CONS.P ---
History of Present Illness Date of Consult: 10/26/18 Reason for Consult: palliative eval discussion Requesting physician: Dr. Tello Primary care physician: Calderon Ramirez MD - History of Present Illness The patient is a 83 year old M seen for palliative eval in the TCU. Pt originally admitted to [facility] thru ER with Chest pain and SOB. Found to have PE and respiratory failure and diastolic CHf with underlying NSTEMI. He has multiple comorbidities. Had original bipap and placed on blood thinners, diuretics, and symptomatic care. Original consult placed for hospice with poor prognosis and pt and refused hospice consult in [facility]. Seemed to stabilize in the hospital and moved to TCU last week for rehab and PT/OT. Pt somewhat poorly motivated here and fatigued. Staff reports some improvement in therapies the past few days with more pt effort lately. Now on rtc oxygen and has hx of KARAN as well. Has long list of comorbidities. present for discussion and is open to palliation and discussed goals of care and treatment options. Up with walker and ANDREA noted. Some difficulty with sleep and fatigue and has poor appetite here. Was living at home with his . Denies pain and n/v. Claims his bowels are moving and no urinary difficulty. Has lift chair and a cane at home. Not interested in hospioce at present and seem to have knowledge deficit about it and his potential prognosis. Chart reviewed and discussed with care management. Patient Problems: Chronic Problems (Last Reviewed 06/05/18 @ 13:40 by Fito Alcala MD) Coronary artery disease (Chronic) Hypertension (Chronic) Pulmonary hypertension (Chronic) Stroke (Chronic) Lumbar spinal stenosis (Chronic) Hypomagnesemia (Chronic) BPH (benign prostatic hyperplasia) (Chronic) Glaucoma (Chronic) Constipation (Chronic) Essential (primary) hypertension (Chronic) Secondary pulmonary arterial hypertension (Chronic) Atherosclerotic heart disease of [place] coronary artery with other forms of angina pectoris (Chronic) PTCA/EASTON Anomalous LCX off of RCA with a 2.25 x 24 Promus Synergy and PTCA/EASTON of distal RCA in stent plaque protrusion with possible non occlusive thrombus w/ 3.5 x 32 Promus Synergy05/19/18 PTCA/EASTON distal RCA with a 3.5 x 38 Promus Syergy and EASTON mid RCA with a 4.0 x 32 Promus Synergy Stent 05/13/18 EASTON-Prox LAD w/ 3.5 mm x 20 mm Promus Stent 08/27/12 [id number] & proximal RCA 06/21/2002 Hyperlipidemia (Chronic) Surgical History: angioplasty - Stent., coronary bypass surgery, total hip arthroplasty, - - Hiatal hernia surgery. Psychiatric History: No pertinent psych hx Home Medications: Ambulatory Orders Medication Instructions Recorded Aspirin [Aspirin, Baby] 81 mg PO DAILY@0800 06/23/13 Metoprolol(XL)Succ [Toprol Xl 50 mg PO DAILY 06/23/13 (Beta Luis Felipe)] Cetirizine HCl [Zyrtec] 10 mg PO DAILY 03/25/15 Isosorbide Mononitrate [Isosorbide 60 mg PO DAILY 03/25/15 Mononitrate ER] Multivit-Min/FA/Lycopen/Lutein 1 ea PO DAILY 03/25/15 [Centrum Silver Tablet] atorvastatin 40 mg tablet 40 mg PO QHS tab 05/08/17 magnesium oxide 400 mg (241.3 mg 400 mg PO QDAY tab 05/08/17 magnesium) tablet furosemide 40 mg tablet 40 mg PO DAILY tab 12/05/17 tamsulosin 0.4 mg capsule 0.4 mg PO DAILY 30 Days #30 12/05/17 Folic Acid 0.4 mg PO DAILY@0800 05/10/18 Travoprost 0.004% [Travatan-Z 1 drop EACH EYE QHS 05/10/18 0.004% Eye Drop] Acetaminophen [Tylenol Tablet] 650 mg PO Q6H PRN PRN tablet 05/20/18 Aspirin/Acetaminophen/Caffeine 2 ea PO DAILY PRN 10/12/18 [Excedrin Migraine Caplet] Apixaban [Eliquis] 5 mg PO BID 10/13/18 Calcium Carbonate [Tums] 1,000 mg PO Q4H PRN PRN tab 10/13/18 Ensure Enlive 120 ml PO 4X/DAY 10/13/18 Nitroglycerin (INPATIENT USE) 0.4 mg SUBLINGUAL Q5M PRN tab.subl 10/13/18 [Nitrostat] Polyethylene Glycol 3350 [Miralax] 17 gm PO DAILY 10/13/18 Allergies diazepam [From Valium] Allergy (Intermediate, Verified 10/04/18 11:24) Other HALLUCINATIONS morphine Allergy (Intermediate, Verified 10/04/18 11:24) Other TWITCHES Maternal Family History: Family History (Last Reviewed 06/05/18 @ 13:40 by Fito Alcala MD) Father No problems noted. Mother Cancer Brother Throat cancer Brother COPD (chronic obstructive pulmonary disease) Brother No problems noted. Sister COPD (chronic obstructive pulmonary disease) Heart disease Sister COPD (chronic obstructive pulmonary disease) History Items: No pertinent history Paternal Family History: Family History (Last Reviewed 06/05/18 @ 13:40 by Fito Alcala MD) Father No problems noted. Mother Cancer Brother Throat cancer Brother COPD (chronic obstructive pulmonary disease) Brother No problems noted. 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 Has support of family. Code Status: DNC Advanced Care Planning: Has son who is DPOAHC. No apparent living will. Goals are for home care. Wants to go home and be comfortable. Beyond that does not offer much. expresses need for equipment and potential help if he is able to go home. Goals discussed with staff as well. Review of Systems Constitutional: Reports: Anorexia - helped with interview as pt not interested., Weakness, Fatigue. Denies: Chills, Fever, Night Sweats Eyes: Denies: Blurred vision, Cataracts, Vision Change HEENT: Reports: Nasal bleeding. Denies: Difficulty Hearing, Difficulty Swallowing, Dysphasia Cardiovascular: Reports: Chest Pain, Chest Pressure, Chest Tightness Respiratory: Reports: Shortness of Breath, Shortness of breath upon exertion. Denies: Cough, Hemoptysis, Pleuritic Pain Gastrointestinal: Denies: Abdominal Pain, Constipation, Diarrhea, Hematochezia, Melena Genitourinary: Reports: Dysuria, Frequency. Denies: Hematuria, Incontinence Musculoskeletal: Denies: Arm Pain, Back Pain, Joint Pain, Joint Tenderness, Muscle pain Skin: Reports: - - had stasis wound on left ankle now healed. Denies: Dryness, Lesions, Rash Neurological: Denies: Balance problems, Blurred vision, Difficulty swallowing, Focal weakness, Tremor, Seizures Psychiatric: Denies: Anxiety, Depression Endocrine: Denies: Change in Body Habitus, Heat/ Cold Intolerance Hematologic/ Lymphatic: Reports: Anemia. Denies: Adenopathy, Petechiae, Purpura - Difficult to get hx from patient. helpful with questions. Physical Exam Palliative Performance Scale %: 50 General: Alert, Oriented x3, Cooperative, - - fatigued up in chair HEENT: Atraumatic, PERRLA, EOMI, Normocephalic Oral: Moist Mucosa, No Gingival or Mucosal Lesions/ Ulcerations Neck: Supple, No JVD, No Nuchal Rigidity, Trachea Midline Lungs: Diminished, Rales, Short of Breath, - - O2 per n/c Cardiovascular: Regular rate, Regular Rhythm, No murmurs, No Ectopic Activity, No Gallop Abdomen: Bowel Sounds Present, Soft, Non Tender, Non-Distended, Obese Extremities: No clubbing, No cyanosis, No Calf Tenderness, Diminished Peripheral Pulses, Edema Skin: No rashes, No breakdown Musculoskeletal: No Tenderness to Palpation of Joints or Extremities, No Muscle Wasting, Arthritic Changes Lymphatic: No Cervical, Supraclavicular, or Inguinal Adenopathy Neurological: Cranial nerves II-XII grossly intact, Deep Tendon Reflexes 2+/4 and Symmetrical, Neuro grossly intact Psych/Mental Status: Appropriate, Flat Affect, Alert and oriented to time, place, person, mood and affect Objective: Vital Signs Temp Pulse Resp BP Pulse Ox 98.7 F 62 20 H 131/60 H 99 10/25/18 16:00 10/26/18 06:14 10/25/18 16:00 10/26/18 06:14 10/26/18 07:00 Oxygen Flow Rate (L/min) 5 Oxygen Delivery Method Nasal Cannula Weight: 214 lb Body Mass Index (BMI) 32.5 Intake and Output for Last 24 Hours 10/24/18 10/25/18 10/26/18 23:59 23:59 23:59 Intake Total 120 / 120 480 / 480 240 / 240 Output Total 250 / 250 Balance -130 / -130 480 / 480 240 / 240 Microbiology Past 72 Hours 10/26/18 00:10 C. 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 Moved to TCU with significant debility and has multiple comorbidities. PT/OT here and staff reports recent improvement in effort to move, etc.. Pt with ? motivation for therapies and offers little with interview. is helpful in interview process. Pt now on RTc O2 per n/c and denies pain, N/v or tremors. Does not like the food here. c/o of some difficulty with sleep here and up with walker and some ANDREA noted. Has healed stasis ulcer on left leg. REviewed ROS and treatment here. Wants to go home as his primary goal. Wants to be symptom free and avoid rehospitalization. Pt is DNRCC. Certainly do agree with current meds and therapies. Son is DPOAHC. If pt progresses then would recommend close f/u with potential home going process and palliative care. If fails to achieve much improvement or functionality with endurance and no symptoms then would recommened hospice. We explained the difference in the programs and they voiced understanding to some degree. Decline hospice at this time. Discussed his dx's and comorbidities. Feel overall prognosis is likely guarded to poor. At risk for further decompensation. They are aware as is care management. Will f/u in TCU and at home with palliative care for now. Support and education offered to them. Will f/u. Thanks.
[2018-10-26 15:54] VITALS: BP 125/52; PULSE 64; RESP 18; TEMP 37.2; O2SAT 100
[2018-10-26] MEDS: Tamsulosin HCl 0.4 MG Capsule PO (18:10)
[2018-10-26] MEDS: Latanoprost 0.005% 1 Bottle 1 DRP EACH EYE (19:45)
[2018-10-26] MEDS: Atorvastatin Calcium 40 MG Tablet PO (19:45)
[2018-10-27 05:42] VITALS: BP 142/63; PULSE 68
[2018-10-27] MEDS: APIXABAN 5 MG TABLET PO ×2 (05:42→16:48)
[2018-10-27] MEDS: Furosemide 40 MG Tablet PO (05:42)
[2018-10-27] MEDS: Metoprolol(XL)Succ 50 MG Tablet PO (05:42)
[2018-10-27] MEDS: Menthol/Lanolin/Calamine/Znox 113 GM Tube 1 APPLIC TOPICAL ×3 (05:42→19:41)
[2018-10-27] MEDS: Loratadine 10 MG Tablet PO (05:42)
[2018-10-27] MEDS: Isosorbide Mononitrate 60 MG Tablet PO (05:42)
[2018-10-27 07:56] VITALS: O2SAT 98
[2018-10-27] MEDS: Folic Acid 1 MG Tablet 0.5 MG PO (08:53)
[2018-10-27] MEDS: Magnesium Oxide 400 MG Tablet PO (08:53)
[2018-10-27] MEDS: Multivitamins,Ther W-Minerals Tablet 1 TABLET PO (08:53)
--- NOTE | 2018-10-27 14:03 | CASEMGMT ---
Social Work Spoke with pt's DIL about insurance coverage and preschool aide resources. Answered her questions and reexplained Medicaid and community resources available. Continuing to offer assistance for discharge planning. KELLI Mcnair METEOROLOGICAL AIDE
[2018-10-27 15:07] VITALS: BP 96/55; PULSE 81; RESP 20; TEMP 36.8; O2SAT 99
[2018-10-27] MEDS: Tamsulosin HCl 0.4 MG Capsule PO (16:48)
[2018-10-27] MEDS: Atorvastatin Calcium 40 MG Tablet PO (19:41)
[2018-10-27] MEDS: Latanoprost 0.005% 1 Bottle 1 DRP EACH EYE (19:41)
[2018-10-28] MEDS: Menthol/Lanolin/Calamine/Znox 113 GM Tube 1 APPLIC TOPICAL ×2 (05:16→21:50)
[2018-10-28 05:17] VITALS: BP 142/63; PULSE 63
[2018-10-28] MEDS: APIXABAN 5 MG TABLET PO ×2 (05:17→17:50)
[2018-10-28] MEDS: Isosorbide Mononitrate 60 MG Tablet PO (05:17)
[2018-10-28] MEDS: Loratadine 10 MG Tablet PO (05:17)
[2018-10-28] MEDS: Metoprolol(XL)Succ 50 MG Tablet PO (05:17)
[2018-10-28] MEDS: Furosemide 40 MG Tablet PO (05:17)
[2018-10-28 06:09] LABS: Absolute Lymphocyte Count 2.11 X10^3/uL (0.83-4.51); Absolute Neutrophil Count 3.5 X10^3/uL (2.0-7.7); Basophil# 0.03 X10^3/uL; Basophil% 0.5 % (0-1); Eosinophil# 0.19 X10^3/uL; Hematocrit 31.8 % (40-54); Hemoglobin 9.9 g/dL (13.0-16.5); Lymphocyte # 2.11 X10^3/ul (4.0); Lymphocyte % 33.3 % (19-41); Mean Corp Hgb Conc 31.1 g/dL (32-36); Mean Corpuscular Hgb 27.1 pg (27.0-32.0); Mean Corpuscular Volume 87.1 fL (80-94); Mean Platelet Vol. 9.8 fl (6.2-12.0); Monocyte# 0.44 X10^3/uL; NRBC Flagged by Analyzer 0 % (0-5); Neutrophil # 3.53 X10^3/uL (2.7-7.7); Neutrophil % 55.7 % (47-70); Platelet Count 279 K/mm3 (150-450); RBC Distribution Width SD 60.1 fl (35.1-43.9); Red Blood Count 3.65 M/mm3 (4.6-6.2); White Blood Count 6.3 K/mm3 (4.4-11.0)
[2018-10-28 06:32] LABS: Anion Gap 4 (5-15); BUN 15 mg/dL (7-18); BUN/Creat Ratio 16.4 RATIO (10-20); Calcium,Total 8.8 mg/dL (8.5-10.1); Chloride 108 mmol/L (98-107); Creatinine, Serum 0.91 mg/dL (0.70-1.30); EST Glomerular Filtration Rate 84 mL/min (>60); Est Glom Filt Rate - Afr Amer 102 mL/min (>60); Estimated Creatinine Clearance 60.55 ml/min; Glucose 87 mg/dL (74-106); Potassium 3.9 mmol/L (3.5-5.1); Sodium Level 139 mmol/L (136-145)
[2018-10-28] MEDS: Magnesium Oxide 400 MG Tablet PO (08:46)
[2018-10-28] MEDS: Multivitamins,Ther W-Minerals Tablet 1 TABLET PO (08:46)
[2018-10-28] MEDS: Folic Acid 1 MG Tablet 0.5 MG PO (08:46)
[2018-10-28 15:27] VITALS: BP 105/57; PULSE 75; RESP 20; TEMP 36.9; O2SAT 100
[2018-10-28] MEDS: Tamsulosin HCl 0.4 MG Capsule PO (17:50)
[2018-10-28] MEDS: Senna/Docusate Sodium 1 Tablet 2 TABLET PO (17:50)
[2018-10-28] MEDS: Atorvastatin Calcium 40 MG Tablet PO (21:50)
[2018-10-28] MEDS: Latanoprost 0.005% 1 Bottle 1 DRP EACH EYE (21:50)
[2018-10-29 04:06] VITALS: BP 134/63; PULSE 63
[2018-10-29] MEDS: Isosorbide Mononitrate 60 MG Tablet PO (04:06)
[2018-10-29] MEDS: Loratadine 10 MG Tablet PO (04:06)
[2018-10-29] MEDS: Furosemide 40 MG Tablet PO (04:06)
[2018-10-29] MEDS: Metoprolol(XL)Succ 50 MG Tablet PO (04:06)
[2018-10-29] MEDS: Senna/Docusate Sodium 1 Tablet 2 TABLET PO (04:07)
[2018-10-29] MEDS: Polyethylene Glycol 3350 17 GM PACKET PO (04:08)
[2018-10-29] MEDS: APIXABAN 5 MG TABLET PO ×2 (04:09→17:57)
[2018-10-29] MEDS: Menthol/Lanolin/Calamine/Znox 113 GM Tube 1 APPLIC TOPICAL ×3 (04:09→20:50)
[2018-10-29 04:11] VITALS: PULSE 65; O2SAT 97
[2018-10-29 06:40] VITALS: O2SAT 100
[2018-10-29] MEDS: Multivitamins,Ther W-Minerals Tablet 1 TABLET PO (08:48)
[2018-10-29] MEDS: Magnesium Oxide 400 MG Tablet PO (08:48)
[2018-10-29] MEDS: Folic Acid 1 MG Tablet 0.5 MG PO (08:48)
[2018-10-29 16:00] VITALS: BP 117/58; PULSE 73; RESP 14; TEMP 37; O2SAT 100
[2018-10-29] MEDS: Tamsulosin HCl 0.4 MG Capsule PO (17:57)
[2018-10-29] MEDS: Atorvastatin Calcium 40 MG Tablet PO (20:51)
[2018-10-29] MEDS: Latanoprost 0.005% 1 Bottle 1 DRP EACH EYE (20:51)
[2018-10-30 06:11] VITALS: BP 139/63; PULSE 64
[2018-10-30] MEDS: APIXABAN 5 MG TABLET PO ×2 (06:11→17:14)
[2018-10-30] MEDS: Loratadine 10 MG Tablet PO (06:11)
[2018-10-30] MEDS: Furosemide 40 MG Tablet PO (06:11)
[2018-10-30] MEDS: Menthol/Lanolin/Calamine/Znox 113 GM Tube 1 APPLIC TOPICAL ×3 (06:11→21:55)
[2018-10-30] MEDS: Senna/Docusate Sodium 1 Tablet 2 TABLET PO ×2 (06:11→17:14)
[2018-10-30] MEDS: Metoprolol(XL)Succ 50 MG Tablet PO (06:11)
[2018-10-30] MEDS: Isosorbide Mononitrate 60 MG Tablet PO (06:12)
[2018-10-30] MEDS: Folic Acid 1 MG Tablet 0.5 MG PO (08:25)
[2018-10-30] MEDS: Magnesium Oxide 400 MG Tablet PO (08:25)
[2018-10-30] MEDS: Multivitamins,Ther W-Minerals Tablet 1 TABLET PO (08:25)
[2018-10-30 15:48] VITALS: BP 117/60; PULSE 72; RESP 20; TEMP 37.1; O2SAT 100
[2018-10-30] MEDS: Tamsulosin HCl 0.4 MG Capsule PO (17:14)
[2018-10-30] MEDS: Atorvastatin Calcium 40 MG Tablet PO (21:55)
[2018-10-30] MEDS: oxyCODONE 5 MG Tablet PO (21:55)
[2018-10-30] MEDS: Latanoprost 0.005% 1 Bottle 1 DRP EACH EYE (21:55)
[2018-10-31 06:43] VITALS: PULSE 63
[2018-10-31] MEDS: Isosorbide Mononitrate 60 MG Tablet PO (06:43)
[2018-10-31] MEDS: Loratadine 10 MG Tablet PO (06:43)
[2018-10-31] MEDS: Senna/Docusate Sodium 1 Tablet 2 TABLET PO ×2 (06:43→17:12)
[2018-10-31] MEDS: Metoprolol(XL)Succ 50 MG Tablet PO (06:43)
[2018-10-31] MEDS: Furosemide 40 MG Tablet PO (06:44)
[2018-10-31] MEDS: Menthol/Lanolin/Calamine/Znox 113 GM Tube 1 APPLIC TOPICAL ×2 (06:44→22:45)
[2018-10-31] MEDS: APIXABAN 5 MG TABLET PO ×2 (06:44→17:12)
[2018-10-31] MEDS: Folic Acid 1 MG Tablet 0.5 MG PO (07:47)
[2018-10-31] MEDS: Multivitamins,Ther W-Minerals Tablet 1 TABLET PO (07:47)
[2018-10-31] MEDS: Magnesium Oxide 400 MG Tablet PO (07:47)
[2018-10-31 15:23] VITALS: BP 116/52; PULSE 68; RESP 18; TEMP 37.1; O2SAT 100
[2018-10-31] MEDS: Tamsulosin HCl 0.4 MG Capsule PO (17:12)
[2018-10-31] MEDS: Latanoprost 0.005% 1 Bottle 1 DRP EACH EYE (22:42)
[2018-10-31] MEDS: Atorvastatin Calcium 40 MG Tablet PO (22:42)
[2018-11-01 08:09] VITALS: BP 136/70; PULSE 70
[2018-11-01] MEDS: Isosorbide Mononitrate 60 MG Tablet PO (08:09)
[2018-11-01] MEDS: Metoprolol(XL)Succ 50 MG Tablet PO (08:09)
[2018-11-01] MEDS: APIXABAN 5 MG TABLET PO ×2 (08:09→17:11)
[2018-11-01] MEDS: Senna/Docusate Sodium 1 Tablet 2 TABLET PO ×2 (08:09→17:11)
[2018-11-01] MEDS: Loratadine 10 MG Tablet PO (08:09)
[2018-11-01] MEDS: Furosemide 40 MG Tablet PO (08:09)
[2018-11-01] MEDS: Multivitamins,Ther W-Minerals Tablet 1 TABLET PO (08:10)
[2018-11-01] MEDS: Magnesium Oxide 400 MG Tablet PO (08:10)
[2018-11-01] MEDS: Folic Acid 1 MG Tablet 0.5 MG PO (08:10)
[2018-11-01] MEDS: Menthol/Lanolin/Calamine/Znox 113 GM Tube 1 APPLIC TOPICAL ×2 (08:15→21:14)
[2018-11-01 16:00] VITALS: BP 100/61; PULSE 73; RESP 20; TEMP 37.4; O2SAT 100
[2018-11-01] MEDS: Tamsulosin HCl 0.4 MG Capsule PO (17:11)
[2018-11-01] MEDS: Latanoprost 0.005% 1 Bottle 1 DRP EACH EYE (21:12)
[2018-11-01] MEDS: Atorvastatin Calcium 40 MG Tablet PO (21:12)
[2018-11-02 06:15] VITALS: BP 140/64; PULSE 61
[2018-11-02] MEDS: Isosorbide Mononitrate 60 MG Tablet PO (06:15)
[2018-11-02] MEDS: Furosemide 40 MG Tablet PO (06:15)
[2018-11-02] MEDS: APIXABAN 5 MG TABLET PO ×2 (06:15→18:10)
[2018-11-02] MEDS: Senna/Docusate Sodium 1 Tablet 2 TABLET PO (06:15)
[2018-11-02] MEDS: Loratadine 10 MG Tablet PO (06:15)
[2018-11-02] MEDS: Metoprolol(XL)Succ 50 MG Tablet PO (06:15)
[2018-11-02] MEDS: Menthol/Lanolin/Calamine/Znox 113 GM Tube 1 APPLIC TOPICAL ×2 (06:15→21:05)
[2018-11-02] MEDS: oxyCODONE 5 MG Tablet PO (06:21)
[2018-11-02] MEDS: Folic Acid 1 MG Tablet 0.5 MG PO (08:43)
[2018-11-02] MEDS: Multivitamins,Ther W-Minerals Tablet 1 TABLET PO (08:43)
[2018-11-02] MEDS: Magnesium Oxide 400 MG Tablet PO (08:43)
[2018-11-02 16:00] VITALS: BP 110/57; PULSE 71; RESP 20; TEMP 37.3; O2SAT 94
[2018-11-02] MEDS: Tamsulosin HCl 0.4 MG Capsule PO (18:10)
[2018-11-02] MEDS: Atorvastatin Calcium 40 MG Tablet PO (21:04)
[2018-11-02] MEDS: Latanoprost 0.005% 1 Bottle 1 DRP EACH EYE (21:04)
[2018-11-03 06:06] VITALS: BP 135/61; PULSE 66
[2018-11-03] MEDS: Metoprolol(XL)Succ 50 MG Tablet PO (06:06)
[2018-11-03] MEDS: Menthol/Lanolin/Calamine/Znox 113 GM Tube 1 APPLIC TOPICAL ×2 (06:06→21:14)
[2018-11-03] MEDS: Loratadine 10 MG Tablet PO (06:07)
[2018-11-03] MEDS: Furosemide 40 MG Tablet PO (06:07)
[2018-11-03] MEDS: APIXABAN 5 MG TABLET PO ×2 (06:07→16:42)
[2018-11-03] MEDS: Isosorbide Mononitrate 60 MG Tablet PO (06:07)
[2018-11-03 06:48] VITALS: O2SAT 94
[2018-11-03] MEDS: Multivitamins,Ther W-Minerals Tablet 1 TABLET PO (08:29)
[2018-11-03] MEDS: Folic Acid 1 MG Tablet 0.5 MG PO (08:29)
[2018-11-03] MEDS: Magnesium Oxide 400 MG Tablet PO (08:29)
[2018-11-03] MEDS: traMADol 50 MG Tablet PO (10:07)
[2018-11-03 16:00] VITALS: BP 114/52; PULSE 74; RESP 18; TEMP 36.9; O2SAT 99
[2018-11-03] MEDS: Tamsulosin HCl 0.4 MG Capsule PO (16:42)
[2018-11-03] MEDS: Senna/Docusate Sodium 1 Tablet 2 TABLET PO (16:42)
[2018-11-03] MEDS: Atorvastatin Calcium 40 MG Tablet PO (21:10)
[2018-11-03] MEDS: Latanoprost 0.005% 1 Bottle 1 DRP EACH EYE (21:11)
[2018-11-04 06:08] VITALS: BP 128/61; PULSE 73
[2018-11-04] MEDS: APIXABAN 5 MG TABLET PO ×2 (06:08→16:31)
[2018-11-04] MEDS: Metoprolol(XL)Succ 50 MG Tablet PO (06:08)
[2018-11-04] MEDS: Isosorbide Mononitrate 60 MG Tablet PO (06:09)
[2018-11-04] MEDS: Furosemide 40 MG Tablet PO (06:09)
[2018-11-04] MEDS: Loratadine 10 MG Tablet PO (06:09)
[2018-11-04] MEDS: Menthol/Lanolin/Calamine/Znox 113 GM Tube 1 APPLIC TOPICAL ×2 (06:11→20:21)
[2018-11-04 06:42] VITALS: O2SAT 96
[2018-11-04] MEDS: Multivitamins,Ther W-Minerals Tablet 1 TABLET PO (09:44)
[2018-11-04] MEDS: Magnesium Oxide 400 MG Tablet PO (09:44)
[2018-11-04] MEDS: Folic Acid 1 MG Tablet 0.5 MG PO (09:44)
--- NOTE | 2018-11-04 10:44 | NURSING ---
Per Arelis in therapy, patient on RA during therapy session, including AM care and ambulation and remained at 94-95% on RA.
--- NOTE | 2018-11-04 12:47 | NURSING ---
Pt asleep in recliner, had been tolerating RA during therapy today with a pulse Ox of 94%. Pulse Ox taken and 80% on RA, 2L O2 applied. Denies SOB, pulse ox now 92%, will continue to monitor. Reported to HOOD Barcenas.
[2018-11-04 16:00] VITALS: BP 113/60; PULSE 71; RESP 20; TEMP 37.6; O2SAT 99
[2018-11-04] MEDS: Tamsulosin HCl 0.4 MG Capsule PO (16:30)
[2018-11-04] MEDS: Atorvastatin Calcium 40 MG Tablet PO (20:20)
[2018-11-04] MEDS: Latanoprost 0.005% 1 Bottle 1 DRP EACH EYE (20:21)
[2018-11-05 05:50] VITALS: BP 133/62; PULSE 65
[2018-11-05] MEDS: Furosemide 40 MG Tablet PO (05:50)
[2018-11-05] MEDS: Isosorbide Mononitrate 60 MG Tablet PO (05:50)
[2018-11-05] MEDS: Metoprolol(XL)Succ 50 MG Tablet PO (05:50)
[2018-11-05] MEDS: Loratadine 10 MG Tablet PO (05:50)
[2018-11-05] MEDS: APIXABAN 5 MG TABLET PO ×2 (05:50→18:03)
[2018-11-05] MEDS: Menthol/Lanolin/Calamine/Znox 113 GM Tube 1 APPLIC TOPICAL ×2 (05:52→21:29)
[2018-11-05] MEDS: Multivitamins,Ther W-Minerals Tablet 1 TABLET PO (09:27)
[2018-11-05] MEDS: Magnesium Oxide 400 MG Tablet PO (09:27)
[2018-11-05] MEDS: Folic Acid 1 MG Tablet 0.5 MG PO (09:28)
--- NOTE | 2018-11-05 09:31 | NURSING ---
pt resting in bed, eyes closed but awakens to verbal and tactile stimuli. Pt given ice and coke placed in cup as per pt request. pt refused to take pills while nurse in room. states leave on table and I will take them, I have no trouble taking them Call light in reach. table in reach.
[2018-11-05] MEDS: Polyethylene Glycol 3350 17 GM PACKET PO (13:30)
--- NOTE | 2018-11-05 14:14 | MDS.RN ---
Information for the mds was obtained from review of the clinical record, interview of resident, staff, and direct observation of resident's care.
--- NOTE | 2018-11-05 15:28 | CHAPLAIN ---
Type of Pastoral Visit ___ Initial Visit ___ Follow-up Visit ___ On-call Visit ___ General Patient Visit ___ Spiritual Assessment ___ Family Conference ___ Bereavement ___ Rapid Response ___ Code Blue _x__ Other (describe below) Pastoral Care Referral From ___ Patient ___ Family ___ Nurse ___ Physician ___ General Engineer ___ Historiography Professor ___ Other (describe below) Sacrament/Intervention ___ Active listening ___ Anointing ___ Methodist ___ Bereavement ___ Communion ___ Olivia exploration ___ ___ Life review ___ Prayer ___ Reconciliation ___ Sacrament of Sick ___ Supportive presence ___ Wedding ___ Other (describe below) Pastoral Comments patient was sleeping when attempt for visit was made
[2018-11-05 15:57] VITALS: BP 129/72; PULSE 68; RESP 20; TEMP 37.3; O2SAT 95
[2018-11-05] MEDS: Tamsulosin HCl 0.4 MG Capsule PO (18:03)
[2018-11-05] MEDS: Senna/Docusate Sodium 1 Tablet 2 TABLET PO (18:03)
[2018-11-05] MEDS: Atorvastatin Calcium 40 MG Tablet PO (21:25)
[2018-11-05] MEDS: Latanoprost 0.005% 1 Bottle 1 DRP EACH EYE (21:28)
[2018-11-06 06:43] VITALS: BP 143/64; PULSE 69
[2018-11-06] MEDS: Metoprolol(XL)Succ 50 MG Tablet PO (06:43)
[2018-11-06] MEDS: APIXABAN 5 MG TABLET PO ×2 (06:43→17:27)
[2018-11-06] MEDS: Loratadine 10 MG Tablet PO (06:44)
[2018-11-06] MEDS: Isosorbide Mononitrate 60 MG Tablet PO (06:44)
[2018-11-06] MEDS: Senna/Docusate Sodium 1 Tablet 2 TABLET PO ×2 (06:44→17:27)
[2018-11-06] MEDS: Furosemide 40 MG Tablet PO (06:44)
[2018-11-06] MEDS: Menthol/Lanolin/Calamine/Znox 113 GM Tube 1 APPLIC TOPICAL ×2 (06:45→20:09)
[2018-11-06] MEDS: Folic Acid 1 MG Tablet 0.5 MG PO (08:12)
[2018-11-06] MEDS: Multivitamins,Ther W-Minerals Tablet 1 TABLET PO (08:12)
[2018-11-06] MEDS: Magnesium Oxide 400 MG Tablet PO (08:13)
[2018-11-06 16:00] VITALS: BP 124/62; PULSE 79; RESP 18; TEMP 37.2; O2SAT 100
[2018-11-06] MEDS: Tamsulosin HCl 0.4 MG Capsule PO (17:27)
[2018-11-06] MEDS: Atorvastatin Calcium 40 MG Tablet PO (20:09)
[2018-11-06] MEDS: Latanoprost 0.005% 1 Bottle 1 DRP EACH EYE (20:10)
[2018-11-07] MEDS: APIXABAN 5 MG TABLET PO ×2 (05:00→17:26)
[2018-11-07] MEDS: Senna/Docusate Sodium 1 Tablet 2 TABLET PO ×2 (05:00→17:25)
[2018-11-07] MEDS: Loratadine 10 MG Tablet PO (05:00)
[2018-11-07] MEDS: Furosemide 40 MG Tablet PO (05:00)
[2018-11-07] MEDS: Menthol/Lanolin/Calamine/Znox 113 GM Tube 1 APPLIC TOPICAL ×2 (05:00→20:24)
[2018-11-07 05:01] VITALS: BP 130/61; PULSE 73
[2018-11-07] MEDS: Metoprolol(XL)Succ 50 MG Tablet PO (05:01)
[2018-11-07] MEDS: Isosorbide Mononitrate 60 MG Tablet PO (05:02)
[2018-11-07] MEDS: Magnesium Oxide 400 MG Tablet PO (07:47)
[2018-11-07] MEDS: Multivitamins,Ther W-Minerals Tablet 1 TABLET PO (07:47)
[2018-11-07] MEDS: Folic Acid 1 MG Tablet 0.5 MG PO (07:47)
[2018-11-07 14:15] VITALS: BP 117/62; PULSE 78; RESP 18; TEMP 36.9; O2SAT 94
[2018-11-07] MEDS: Tamsulosin HCl 0.4 MG Capsule PO (17:26)
[2018-11-07] MEDS: Atorvastatin Calcium 40 MG Tablet PO (20:21)
[2018-11-07] MEDS: Latanoprost 0.005% 1 Bottle 1 DRP EACH EYE (20:21)
[2018-11-07 20:25] VITALS: O2SAT 93
[2018-11-08 06:22] VITALS: BP 148/72; PULSE 76
[2018-11-08] MEDS: Furosemide 40 MG Tablet PO (06:22)
[2018-11-08] MEDS: Loratadine 10 MG Tablet PO (06:22)
[2018-11-08] MEDS: Senna/Docusate Sodium 1 Tablet 2 TABLET PO ×2 (06:22→17:03)
[2018-11-08] MEDS: APIXABAN 5 MG TABLET PO ×2 (06:22→17:04)
[2018-11-08] MEDS: Metoprolol(XL)Succ 50 MG Tablet PO (06:22)
[2018-11-08] MEDS: Isosorbide Mononitrate 60 MG Tablet PO (06:22)
[2018-11-08] MEDS: Menthol/Lanolin/Calamine/Znox 113 GM Tube 1 APPLIC TOPICAL ×2 (06:23→20:03)
[2018-11-08 07:30] VITALS: O2SAT 93
[2018-11-08] MEDS: Magnesium Oxide 400 MG Tablet PO (07:32)
[2018-11-08] MEDS: Folic Acid 1 MG Tablet 0.5 MG PO (07:32)
[2018-11-08] MEDS: Multivitamins,Ther W-Minerals Tablet 1 TABLET PO (07:32)
[2018-11-08 13:19] VITALS: BP 118/54; PULSE 77; RESP 16; TEMP 36.8; O2SAT 95
[2018-11-08] MEDS: Tamsulosin HCl 0.4 MG Capsule PO (17:03)
[2018-11-08] MEDS: Latanoprost 0.005% 1 Bottle 1 DRP EACH EYE (20:03)
[2018-11-08] MEDS: Atorvastatin Calcium 40 MG Tablet PO (20:03)
[2018-11-09] MEDS: APIXABAN 5 MG TABLET PO ×2 (04:11→16:14)
[2018-11-09] MEDS: Senna/Docusate Sodium 1 Tablet 2 TABLET PO ×2 (04:11→16:14)
[2018-11-09 04:12] VITALS: BP 135/69; PULSE 73
[2018-11-09] MEDS: Furosemide 40 MG Tablet PO (04:12)
[2018-11-09] MEDS: Metoprolol(XL)Succ 50 MG Tablet PO (04:12)
[2018-11-09] MEDS: Loratadine 10 MG Tablet PO (04:12)
[2018-11-09] MEDS: Isosorbide Mononitrate 60 MG Tablet PO (04:12)
[2018-11-09] MEDS: Menthol/Lanolin/Calamine/Znox 113 GM Tube 1 APPLIC TOPICAL ×2 (04:13→20:33)
[2018-11-09 07:29] VITALS: O2SAT 93
[2018-11-09] MEDS: Magnesium Oxide 400 MG Tablet PO (08:42)
[2018-11-09] MEDS: Folic Acid 1 MG Tablet 0.5 MG PO (08:42)
[2018-11-09] MEDS: Multivitamins,Ther W-Minerals Tablet 1 TABLET PO (08:42)
--- NOTE | 2018-11-09 11:15 | PN_ITS ---
Subjective: Resident seen in room, lying in bed. He has no complaints. His pain has resolved, he is slowly progressing with therapy. He no longer tells me he wants to , but nursing staff have noted he is grumpy. I asked him specifically if he was depressed, and he denies depression. Vitals/I&O's: Vital Signs Temp Pulse Resp BP Pulse Ox 98.2 F 73 16 135/69 H 95 11/08/18 13:19 11/09/18 04:12 11/08/18 13:19 11/09/18 04:12 11/08/18 13:19 Oxygen Flow Rate (L/min) 1 Oxygen Delivery Method Room Air Weight: 93.043 kg Body Mass Index (BMI) 32.5 Intake and Output for Last 24 Hours 11/07/18 11/08/18 11/09/18 23:59 23:59 23:59 Intake Total 800 / 800 360 / 360 240 / 240 Balance 800 / 800 360 / 360 240 / 240 Past Medical History Past Medical History (Chronic Problems): Chronic Problems (Last Reviewed 06/05/18 @ 13:40 by Fito Alcala MD) Coronary artery disease (Chronic) Hypertension (Chronic) Pulmonary hypertension (Chronic) Stroke (Chronic) Lumbar spinal stenosis (Chronic) Hypomagnesemia (Chronic) BPH (benign prostatic hyperplasia) (Chronic) Glaucoma (Chronic) Constipation (Chronic) Essential (primary) hypertension (Chronic) 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 with a 2.25 x 24 Promus Synergy and PTCA/EASTON of distal RCA in stent plaque protrusion with possible non occlusive thrombus w/ 3.5 x 32 Promus Synergy05/19/18 PTCA/EASTON distal RCA with a 3.5 x 38 Promus Syergy and EASTON mid RCA with a 4.0 x 32 Promus Synergy Stent 05/13/18 EASTON-Prox LAD w/ 3.5 mm x 20 mm Promus Stent 08/27/12 [id number] & proximal RCA 06/21/2002 Hyperlipidemia (Chronic) Medical History: Medical History (Last Reviewed 06/05/18 @ 13:40 by Fito Alcala MD) NSTEMI (non-ST elevated myocardial infarction) (Acute) I21.4 Essential (primary) hypertension (Chronic) I10 Secondary pulmonary arterial hypertension (Chronic) I27.21 Atherosclerotic heart disease of [place] coronary artery with other forms of angina pectoris (Chronic) I25.118 PTCA/EASTON Anomalous LCX off of RCA with a 2.25 x 24 Promus Synergy and PTCA/D ES of distal RCA in stent plaque protrusion with possible non occlusive thrombus w/ 3.5 x 32 Promus Synergy05/19/18 PTCA/EASTON distal RCA with a 3.5 x 38 Promus Syergy and EASTON mid RCA with a 4.0 x 32 Promus Synergy Stent 05/13/18 EASTON-Prox LAD w/ 3.5 mm x 20 mm Promus Stent 08/27/12 [id number] & proximal RCA 06/21/2002 Hyperlipidemia (Chronic) E78.5 CVA (cerebral vascular accident) I63.9 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 Pulmonary embolism I26.99 Right pulmonary embolus (Resolved) I26.99 Congestive heart failure (Inactive) I50.9 Systolic dysfunction Family history of hypertension (Inactive) Z82.49 long-term use of drug (Inactive) Z79.899 Precordial chest pain (Inactive) R07.2 Pulmonary hypertension (Inactive) 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 Allergies diazepam [From Valium] Allergy (Intermediate, Verified 10/04/18 11:24) Other HALLUCINATIONS morphine Allergy (Intermediate, Verified 10/04/18 11:24) Other TWITCHES Home Medications: Ambulatory Orders Medication Instructions Recorded Aspirin [Aspirin, Baby] 81 mg PO DAILY@0800 06/23/13 Metoprolol(XL)Succ [Toprol Xl 50 mg PO DAILY 06/23/13 (Beta Luis Felipe)] Cetirizine HCl [Zyrtec] 10 mg PO DAILY 03/25/15 Isosorbide Mononitrate [Isosorbide 60 mg PO DAILY 03/25/15 Mononitrate ER] Multivit-Min/FA/Lycopen/Lutein 1 ea PO DAILY 03/25/15 [Centrum Silver Tablet] atorvastatin 40 mg tablet 40 mg PO QHS tab 05/08/17 magnesium oxide 400 mg (241.3 mg 400 mg PO QDAY tab 05/08/17 magnesium) tablet furosemide 40 mg tablet 40 mg PO DAILY tab 12/05/17 tamsulosin 0.4 mg capsule 0.4 mg PO DAILY 30 Days #30 12/05/17 Folic Acid 0.4 mg PO DAILY@0800 05/10/18 Travoprost 0.004% [Travatan-Z 1 drop EACH EYE QHS 05/10/18 0.004% Eye Drop] Acetaminophen [Tylenol Tablet] 650 mg PO Q6H PRN PRN tablet 05/20/18 Aspirin/Acetaminophen/Caffeine 2 ea PO DAILY PRN 10/12/18 [Excedrin Migraine Caplet] Apixaban [Eliquis] 5 mg PO BID 10/13/18 Calcium Carbonate [Tums] 1,000 mg PO Q4H PRN PRN tab 10/13/18 Ensure Enlive 120 ml PO 4X/DAY 10/13/18 Nitroglycerin (INPATIENT USE) 0.4 mg SUBLINGUAL Q5M PRN tab.subl 10/13/18 [Nitrostat] Polyethylene Glycol 3350 [Miralax] 17 gm PO DAILY 10/13/18 Surgical History: Surgical History (Last Reviewed 06/05/18 @ 13:40 by Fito Alcala MD) H/O coronary artery bypass surgery (Resolved) Onset Date: 09/12/00 Z95.1 CABG X 5 vessels: CASTILLO to LAD,left radial artery to RCA, SVG to first snd second DX branches of the LAD and SVG to the lateral CX which had aberrant origin from the RCA 09/12/2000 History of coronary artery stent placement (Resolved) Onset Date: 05/13/18 Z95.5 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 2 sons Smoking Status: Never smoker Tobacco Use: Non-smoker Alcohol: None Drugs: None - *Family History Maternal Family History: Family History (Last Reviewed 06/05/18 @ 13:40 by Fito Alcala MD) Father No problems noted. Mother Cancer Brother Throat cancer Brother COPD (chronic obstructive pulmonary disease) Brother No problems noted. Sister COPD (chronic obstructive pulmonary disease) Heart disease Sister COPD (chronic obstructive pulmonary disease) History Items: No pertinent history Paternal Family History: Family History (Last Reviewed 06/05/18 @ 13:40 by Fito Alcala MD) Father No problems noted. Mother Cancer Brother Throat cancer Brother COPD (chronic obstructive pulmonary disease) Brother No problems noted. Sister COPD (chronic obstructive pulmonary disease) Heart disease Sister COPD (chronic obstructive pulmonary disease) History Items: No pertinent history Capacity - Capacity Assessment Tool Can the patient make a choice & communicate that choice?: Yes Can the patient understand benefits, risks and alternatives?: Yes Can the patient make a logical, rational choice?: Yes Is the choice the patient makes consistent w/ their values?: Yes Is there an impending, emergent risk to the patient?: No Does the patient have an Advance Directive?: Yes Is there a Surrogate Available?: Yes i.e. HCPOA: Yes i.e. close relative (spouse, child, parent, sibling)?: Yes Review of Systems Constitutional: Denies: Chills, Fever, Weight Change HEENT: Denies: Head Aches, Sinus Congestion, Sinus Drainage Cardiovascular: Denies: Chest Pain, Palpitations Respiratory: Denies: Cough, Shortness of breath at rest, Sputum production Gastrointestinal: Denies: Abdominal Pain, Nausea, Vomiting Genitourinary: Denies: Dysuria Musculoskeletal: Denies: Joint Pain, Joint Tenderness Skin: Denies: Rash, Wounds Neurological: Denies: Numbness, Tingling, Focal weakness Psychiatric: Denies: Anxiety, Depression, Homicidal Ideations, Suicidal Ideations Hematologic/ Lymphatic: Denies: Easy Bruising, Easy Bleeding Patient Problems: Active and Suspected Problems (Last Reviewed 06/05/18 @ 13:40 by Fito Alcala MD) Debility (Acute) Chest pain (Acute) Acute on chronic diastolic (congestive) heart failure (Acute) - Physical Exam General: Alert, Oriented x3, Cooperative HEENT: Atraumatic, PERRLA, EOMI, Normocephalic Neck: Supple, No JVD, Negative Carotid Bruits Lungs: Clear to auscultation, Normal air movement Cardiovascular: Regular rate, No murmurs Abdomen: Bowel Sounds Present, Soft, Non Tender Extremities: No edema, Capillary Refill Less than 3 Seconds Skin: No rashes, No breakdown Musculoskeletal: No Tenderness to Palpation of Joints or Extremities Neurological: Cranial nerves II-XII grossly intact Psych/Mental Status: Normal Affect, Appropriate Vital Signs Temp Pulse Resp BP Pulse Ox 98.2 F 73 16 135/69 H 95 11/08/18 13:19 11/09/18 04:12 11/08/18 13:19 11/09/18 04:12 11/08/18 13:19 Oxygen Flow Rate (L/min) 1 Oxygen Delivery Method Room Air Weight: 93.043 kg Body Mass Index (BMI) 32.5 Intake and Output for Last 24 Hours 11/07/18 11/08/18 11/09/18 23:59 23:59 23:59 Intake Total 800 / 800 360 / 360 240 / 240 Balance 800 / 800 360 / 360 240 / 240 Assessment/Plan All Active Problems (Last Reviewed 06/05/18 @ 13:40 by Fito Alcala MD) Acute respiratory failure with hypoxia (Acute) Pulmonary embolism (Acute) Debility (Acute) Chest pain (Acute) Acute on chronic diastolic (congestive) heart failure (Acute) Dyspnea on exertion (Acute) LUQ abdominal pain (Acute) NSTEMI (non-ST elevated myocardial infarction) (Acute) H/O coronary artery bypass surgery (Resolved 09/12/00) History of coronary artery stent placement (Resolved 05/13/18) Cellulitis (Resolved) Cellulitis and abscess of left lower extremity (Resolved) Chest pain (Resolved) Right pulmonary embolus (Resolved) 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 (Resolved) 83 year old male with below past medical history hospitalized for acute respiratory failure secondary to pulmonary embolism, complicated by acute on chronic diastolic heart failure, epistaxis, hemoptysis, admitted to TCU with debility, here for rehabilitation, strengthening, prior to discharge home with spouse. If he does not progress, consider hospice. * Debility - PT/OT. * Pain - Tramadol 50MG Q6H PRN moderate pain, Oxycodone 5MG Q4H PRN severe pain. * Bowel - Miralax 17GM daily, Senna/colace 2 tablets BID, Dulcolax 10MG MS daily PRN. * Pneumonia vaccination - Administer Prevnar 13 and/or Pneumovax 23 as necessary. * DVT prophylaxis - Not necessary, already on Eliquis. * Pulmonary Embolism - Eliquis 5MG BID. * Coronary Artery Disease - Metoprolol succinate 50MG daily, Imdur 60MG daily, NTG 0.4MG Q5M PRN. * Migraine headaches - Resolved. * Hyperlipidemia - Atorvastatin 40MG QHS. * GERD - TUMS 1000MG Q4H PRN. * Nutrition - MVI daily. * Folate deficiency - Folic Acid 0.5MG daily. * Chronic diastolic heart failure - Metoprolol succinate 50MG daily, Imdur 60MG daily, Lasix 40MG daily. * Glaucoma - Xalatan 1GTT OU QHS. * Allergic rhinitis - Loratadine 10MG daily. * Hypomagnesemia - Magnesium Oxide 400MG daily. * Skin irritation - Calmoseptine TID. * BPH - Tamsulosin 0.4MG daily. * Shortness of breath - Duoneb 3ML [id number] PRN, Albuterol 2.5MG Q2H PRN.
[2018-11-09 15:37] VITALS: BP 112/55; PULSE 83; RESP 20; TEMP 37.2; O2SAT 95
[2018-11-09] MEDS: Tamsulosin HCl 0.4 MG Capsule PO (16:14)
[2018-11-09] MEDS: Latanoprost 0.005% 1 Bottle 1 DRP EACH EYE (20:28)
[2018-11-09] MEDS: Atorvastatin Calcium 40 MG Tablet PO (20:29)
[2018-11-10] MEDS: APIXABAN 5 MG TABLET PO ×2 (04:38→17:36)
[2018-11-10] MEDS: Isosorbide Mononitrate 60 MG Tablet PO (04:38)
[2018-11-10 04:39] VITALS: BP 123/66; PULSE 65
[2018-11-10] MEDS: Loratadine 10 MG Tablet PO (04:39)
[2018-11-10] MEDS: Metoprolol(XL)Succ 50 MG Tablet PO (04:39)
[2018-11-10] MEDS: Furosemide 40 MG Tablet PO (04:39)
[2018-11-10] MEDS: Senna/Docusate Sodium 1 Tablet 2 TABLET PO ×2 (04:39→17:36)
[2018-11-10] MEDS: Menthol/Lanolin/Calamine/Znox 113 GM Tube 1 APPLIC TOPICAL ×2 (04:41→21:50)
[2018-11-10 07:18] VITALS: O2SAT 95
[2018-11-10] MEDS: Magnesium Oxide 400 MG Tablet PO (08:13)
[2018-11-10] MEDS: Multivitamins,Ther W-Minerals Tablet 1 TABLET PO (08:13)
[2018-11-10] MEDS: Folic Acid 1 MG Tablet 0.5 MG PO (08:13)
[2018-11-10 10:00] VITALS: RESP 16
--- NOTE | 2018-11-10 14:42 | MDS.RN ---
Information for the mds was obtained from review of the clinical record, interview of resident, staff, and direct observation of resident's care.
[2018-11-10 15:09] VITALS: BP 110/57; PULSE 80; RESP 18; TEMP 37.1; O2SAT 94
[2018-11-10] MEDS: Tamsulosin HCl 0.4 MG Capsule PO (17:36)
[2018-11-10] MEDS: Latanoprost 0.005% 1 Bottle 1 DRP EACH EYE (21:49)
[2018-11-10] MEDS: Atorvastatin Calcium 40 MG Tablet PO (21:50)
[2018-11-11] MEDS: APIXABAN 5 MG TABLET PO ×2 (06:35→17:07)
[2018-11-11] MEDS: Isosorbide Mononitrate 60 MG Tablet PO (06:35)
[2018-11-11] MEDS: Loratadine 10 MG Tablet PO (06:36)
[2018-11-11] MEDS: Furosemide 40 MG Tablet PO ×2 (06:36→17:07)
[2018-11-11 06:37] VITALS: BP 146/72; PULSE 72
[2018-11-11] MEDS: Metoprolol(XL)Succ 50 MG Tablet PO (06:37)
[2018-11-11] MEDS: Senna/Docusate Sodium 1 Tablet 2 TABLET PO ×2 (06:37→17:07)
[2018-11-11] MEDS: Menthol/Lanolin/Calamine/Znox 113 GM Tube 1 APPLIC TOPICAL ×2 (06:37→20:57)
[2018-11-11] MEDS: Folic Acid 1 MG Tablet 0.5 MG PO (07:53)
[2018-11-11] MEDS: Magnesium Oxide 400 MG Tablet PO (07:53)
[2018-11-11] MEDS: Multivitamins,Ther W-Minerals Tablet 1 TABLET PO (07:53)
[2018-11-11 08:18] VITALS: O2SAT 93
--- NOTE | 2018-11-11 12:11 | CASEMGMT ---
Social Work Spoke with pt about discharge plans - pt agreeable to DC 11/16 with Palliative Care and [facility] PT/OT/SN. Left message with son of above information. Pt to notify . [place] [facility] deliver day of discharge. Plan: DC home with 11/16 with Palliative Care, [facility] PT/OT/SN, hospital bed Yari Mcconnell, KELLI BIRMINGHAMW
--- NOTE | 2018-11-11 14:45 | NURSING ---
Back from therapy. Assisted to chair by therapist. Complains of pain #10/10 to Lt shoulder. Warm pack applied. Refuses offer of pain medications. Gets irritated at this RN for offering it. States none of that works. I've been wanting to see a doctor about this pain. I get shots in this arm. This RN offerred to set up an appt with pain management in regards to this. agreeable at bedside but resident will not answer this RN if he is agreeable as well, so states he will just let you know what he decides.
[2018-11-11 16:00] VITALS: BP 118/64; PULSE 77; RESP 18; TEMP 37.2; O2SAT 98
[2018-11-11] MEDS: Tamsulosin HCl 0.4 MG Capsule PO (17:08)
[2018-11-11] MEDS: Polyethylene Glycol 3350 17 GM PACKET PO (18:58)
--- NOTE | 2018-11-11 19:01 | NURSING ---
Pt requesting something for his bowels. Miralax given at this time that was scheduled for 0600 this AM that pt refused.
[2018-11-11] MEDS: Latanoprost 0.005% 1 Bottle 1 DRP EACH EYE (20:57)
[2018-11-11] MEDS: Atorvastatin Calcium 40 MG Tablet PO (20:57)
--- NOTE | 2018-11-11 21:26 | PCM.DC ---
- Discharge Diagnoses Current Active Problems: Current Active and Chronic Problems (Last Reviewed 06/05/18 @ 13:40 by Fito Alcala MD) Debility (Acute) Chest pain (Acute) Coronary artery disease (Chronic) Acute on chronic diastolic (congestive) heart failure (Acute) Hypertension (Chronic) Pulmonary hypertension (Chronic) Stroke (Chronic) Lumbar spinal stenosis (Chronic) Hypomagnesemia (Chronic) BPH (benign prostatic hyperplasia) (Chronic) Glaucoma (Chronic) Constipation (Chronic) You will use the following diet at home:: No restrictions, Regular Your food should be the consistency of: Regular Your liquids should be the consistency of: Regular/Thin Discharge Activity: Return to Normal Activity, May Shower, Use Walker Weight Bearing Status: Weight bearing as tolerated Call your doctor if you observe: Fever of 101 or Higher, Inability to urinate, Inability to have a bowel movement, Shortness of breath, Chest pain, Uncontrolled pain Allergies/Adverse Reactions: Allergies diazepam [From Valium] Allergy (Intermediate, Verified 10/04/18 11:24) Other HALLUCINATIONS morphine Allergy (Intermediate, Verified 10/04/18 11:24) Other TWITCHES Medications to take at Discharge Metoprolol(XL)Succ [Toprol Xl (Beta Luis Felipe)] 50 mg PO DAILY 06/23/13 Cetirizine HCl [Zyrtec] 10 mg PO DAILY 03/25/15 Isosorbide Mononitrate [Isosorbide Mononitrate ER] 60 mg PO DAILY 03/25/15 Multivit-Min/FA/Lycopen/Lutein [Centrum Silver Tablet] 1 ea PO DAILY 03/25/15 atorvastatin 40 mg tablet 40 mg PO QHS tab 05/08/17 magnesium oxide 400 mg (241.3 mg magnesium) tablet 400 mg PO QDAY tab 05/08/17 tamsulosin 0.4 mg capsule 0.4 mg PO DAILY 30 Days #30 12/05/17 Folic Acid 0.4 mg PO DAILY@0800 05/10/18 Travoprost 0.004% [Travatan-Z 0.004% Eye Drop] 1 drop EACH EYE QHS 05/10/18 Calcium Carbonate [Tums] 1,000 mg PO Q4H PRN PRN tab 10/13/18 Nitroglycerin (INPATIENT USE) [Nitrostat] 0.4 mg SUBLINGUAL Q5M PRN tab.subl 10/13/18 Apixaban [Eliquis] 5 mg PO BID #60 tab 11/11/18 Furosemide [Lasix] 40 mg PO BID #60 tab 11/11/18 Menthol/Lanolin/Calamine/Znox [Calmoseptine Ointment] 1 applic TOPICAL 0600,2200 tube 11/11/18 The following prescriptions were given: Apixaban [Eliquis] 5 mg PO BID #60 tab Transmission Status: Pending to [facility] #30 Furosemide [Lasix] 40 mg PO BID #60 tab Transmission Status: Pending to [facility] #30 Primary Care Physician: Calderon Ramirez MD [Primary Care Provider] - Please follow up with your Primary Care Physician in: 1 week. Test Results: Test results from this visit will be discussed in further detail at your follow-up appointment, if applicable. Please Follow Up With: Fito Alcala MD When: 2 weeks. Please Follow Up With: Kevin Winslow MD When: 2 WEEKS Proposed Discharge Date: 11/16/18
--- NOTE | 2018-11-11 21:28 | DS.PCM_ITS ---
Discharge Date and Diagnosis - Problem List Patient Problems: Active and Suspected Problems (Last Reviewed 06/05/18 @ 13:40 by Fito Alcala MD) Debility (Acute) Chest pain (Acute) Acute on chronic diastolic (congestive) heart failure (Acute) Date of Admission: 10/26/18 Date of Discharge: 11/16/18 - Primary Discharge Diagnosis Active and Suspected Problems (Last Reviewed 06/05/18 @ 13:40 by Fito Alcala MD) Debility (Acute) Chest pain (Acute) Acute on chronic diastolic (congestive) heart failure (Acute) - Secondary Discharge Diagnosis Chronic Problems (Last Reviewed 06/05/18 @ 13:40 by Fito Alcala MD) Coronary artery disease (Chronic) Hypertension (Chronic) Pulmonary hypertension (Chronic) Stroke (Chronic) Lumbar spinal stenosis (Chronic) Hypomagnesemia (Chronic) BPH (benign prostatic hyperplasia) (Chronic) Glaucoma (Chronic) Constipation (Chronic) Essential (primary) hypertension (Chronic) 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.25 x 24 Promus Synergy and PTCA/EASTON of distal RCA in stent plaque protrusion with possible non occlusive thrombus w/ 3.5 x 32 Promus Synergy05/19/18 PTCA/EASTON distal RCA with a 3.5 x 38 Promus Syergy and EASTON mid RCA with a 4.0 x 32 Promus Synergy Stent 05/13/18 EASTON-Prox LAD w/ 3.5 mm x 20 mm Promus Stent 08/27/12 [id number] & proximal RCA 06/21/2002 Hyperlipidemia (Chronic) Hospital Course and Treatment Imaging Results: 10/14/18 15:50 Diet: Regular Diet Food consistency:: Regular Liquid Consistency:: Regular/Thin Is pt able to select menu?: Yes Clinical Impression(s) from Imaging Studies Chest X-Ray 10/15/18 17:12 IMPRESSION: Infiltrate of the lateral right middle lobe, similar to the previous study. Cardiomegaly. Status post sternotomy. Calcified plaques of the aortic arch. Electronically Signed: Celio Soriano MD at 19:14 EDT , Service support , Operations: None Procedures: None Summary of Care Provided: The patient is a 83 year old Male with below past medical history hospitalized for acute respiratory failure secondary to pulmonary embolism, complicated by acute on chronic diastolic heart failure, epistaxis, hemoptysis, admitted to TCU with debility, here for rehabilitation, strengthening, prior to discharge home with spouse. If he does not progress, consider hospice. Discharge home with , [facility] for PT/OT/SN, Hospital bed, Palliative Care. Patient Problems: Active and Suspected Problems (Last Reviewed 06/05/18 @ 13:40 by Fito Alcala MD) Debility (Acute) Chest pain (Acute) Acute on chronic diastolic (congestive) heart failure (Acute) - Physical Exam Vital Signs Temp Pulse Resp BP Pulse Ox 98.9 F 77 18 118/64 98 11/11/18 16:00 11/11/18 16:00 11/11/18 16:00 11/11/18 16:00 11/11/18 16:00 Oxygen Flow Rate (L/min) 1 Oxygen Delivery Method Room Air Weight: 94.007 kg Body Mass Index (BMI) 32.5 Intake and Output for Last 24 Hours 11/09/18 11/10/18 11/11/18 23:59 23:59 23:59 Intake Total 840 / 840 960 / 960 720 / 720 Balance 840 / 840 960 / 960 720 / 720 Discharge Diet: No Restrictions Discharge Activity: Return to Normal Activity, May Shower, Use Walker Weight Bearing Status: Weight bearing as tolerated Call your doctor if you observe: Fever of 101 or Higher, Inability to urinate, Inability to have a bowel movement, Shortness of breath, Chest pain, Uncontrolled pain Home Medications: Medications to take at Discharge Metoprolol(XL)Succ [Toprol Xl (Beta Luis Felipe)] 50 mg PO DAILY 06/23/13 Cetirizine HCl [Zyrtec] 10 mg PO DAILY 03/25/15 Isosorbide Mononitrate [Isosorbide Mononitrate ER] 60 mg PO DAILY 03/25/15 Multivit-Min/FA/Lycopen/Lutein [Centrum Silver Tablet] 1 ea PO DAILY 03/25/15 atorvastatin 40 mg tablet 40 mg PO QHS tab 05/08/17 magnesium oxide 400 mg (241.3 mg magnesium) tablet 400 mg PO QDAY tab 05/08/17 tamsulosin 0.4 mg capsule 0.4 mg PO DAILY 30 Days #30 12/05/17 Folic Acid 0.4 mg PO DAILY@0800 05/10/18 Travoprost 0.004% [Travatan-Z 0.004% Eye Drop] 1 drop EACH EYE QHS 05/10/18 Calcium Carbonate [Tums] 1,000 mg PO Q4H PRN PRN tab 10/13/18 Nitroglycerin (INPATIENT USE) [Nitrostat] 0.4 mg SUBLINGUAL Q5M PRN tab.subl 10/13/18 Apixaban [Eliquis] 5 mg PO BID #60 tab 11/11/18 Furosemide [Lasix] 40 mg PO BID #60 tab 11/11/18 Menthol/Lanolin/Calamine/Znox [Calmoseptine Ointment] 1 applic TOPICAL 0600,2200 tube 11/11/18 Following Prescrptions Were Given to Patient: Apixaban [Eliquis] 5 mg PO BID #60 tab Transmission Status: Pending to [facility] #30 Furosemide [Lasix] 40 mg PO BID #60 tab Transmission Status: Pending to [facility] #30 Primary Care Physician: Calderon Ramirez MD [Primary Care Provider] - Please follow up with your Primary Care Physician in: 1 week. Please Follow Up With: Fito Alcala MD When: 2 weeks. Please Follow Up With: Kevin Winslow MD When: 2 WEEKS Disposition: Home with Home Health Minutes spent on discharge:: 35 Patient Condition:: Stable Medical Necessity - Tobacco Use Smoking Status: Never smoker Tobacco Use: Non-smoker Meaningful Use Info Meaningful Use Diagnoses (Choose all that apply): None applicable
--- NOTE | 2018-11-11 21:29 | PCM.PN.HH ---
Home Health Note - Plan Overview of reason of hospitalization: The patient is a 83 year old Male with below past medical history hospitalized for acute respiratory failure secondary to pulmonary embolism, complicated by acute on chronic diastolic heart failure, epistaxis, hemoptysis, admitted to TCU with debility, here for rehabilitation, strengthening, prior to discharge home with spouse. If he does not progress, consider hospice. Discharge home with , [facility] for PT/OT/SN, Hospital bed, Palliative Care. Problems: Patient was seen for (Last Reviewed 06/05/18 @ 13:40 by Fito Alcala MD) Debility (Acute) Chest pain (Acute) Coronary artery disease (Chronic) Acute on chronic diastolic (congestive) heart failure (Acute) Hypertension (Chronic) Pulmonary hypertension (Chronic) Stroke (Chronic) Lumbar spinal stenosis (Chronic) Hypomagnesemia (Chronic) BPH (benign prostatic hyperplasia) (Chronic) Glaucoma (Chronic) Constipation (Chronic) Complete List of Medical Problems (Last Reviewed 06/05/18 @ 13:40 by Fito Alcala MD) Acute respiratory failure with hypoxia (Acute) Pulmonary embolism (Acute) Debility (Acute) Chest pain (Acute) Coronary artery disease (Chronic) Acute on chronic diastolic (congestive) heart failure (Acute) Hypertension (Chronic) Pulmonary hypertension (Chronic) Stroke (Chronic) Lumbar spinal stenosis (Chronic) Hypomagnesemia (Chronic) BPH (benign prostatic hyperplasia) (Chronic) Glaucoma (Chronic) Constipation (Chronic) Dyspnea on exertion (Acute) LUQ abdominal pain (Acute) NSTEMI (non-ST elevated myocardial infarction) (Acute) Essential (primary) hypertension (Chronic) 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) Hyperlipidemia (Chronic) - Requirements and Reasons Disciplines Needed/Ordered: Penitentiary, Physical Therapy Reason for Disciplines: Disease Specific Monitoring/education, Medication Management/Knowledge Deficit, Gait Training, Stair Training, Fall Prevention, Home Safety/Equipment Instruction, Balance and/or Posture Training, Transfer Training Related To: Change in Medical Treatment Plan, Limited/Poor Endurance, Shortness of Breath with Activity, Physical Impairments, Unsteady Gait/Balance, Fall Risk Patient is unable to leave the home: Without Aid of Supportive Devices (crutches, cane, wheelchair, walker), Without the assistance of another person - Additional Disciplines Additional Disciplines Needed/Ordered: Occupational Therapy
[2018-11-12] MEDS: Loratadine 10 MG Tablet PO (04:43)
[2018-11-12] MEDS: Furosemide 40 MG Tablet PO ×2 (04:44→16:50)
[2018-11-12] MEDS: Isosorbide Mononitrate 60 MG Tablet PO (04:44)
[2018-11-12] MEDS: APIXABAN 5 MG TABLET PO ×2 (04:44→16:51)
[2018-11-12] MEDS: Senna/Docusate Sodium 1 Tablet 2 TABLET PO ×2 (04:44→16:50)
[2018-11-12 04:45] VITALS: BP 135/66; PULSE 67
[2018-11-12] MEDS: Metoprolol(XL)Succ 50 MG Tablet PO (04:45)
[2018-11-12] MEDS: Menthol/Lanolin/Calamine/Znox 113 GM Tube 1 APPLIC TOPICAL ×2 (04:49→20:38)
[2018-11-12 07:16] VITALS: O2SAT 95
[2018-11-12] MEDS: Multivitamins,Ther W-Minerals Tablet 1 TABLET PO (07:24)
[2018-11-12] MEDS: Folic Acid 1 MG Tablet 0.5 MG PO (07:24)
[2018-11-12] MEDS: Magnesium Oxide 400 MG Tablet PO (07:24)
[2018-11-12 16:00] VITALS: BP 110/53; PULSE 74; RESP 18; TEMP 36.8; O2SAT 100
[2018-11-12] MEDS: Tamsulosin HCl 0.4 MG Capsule PO ×2 (16:50→16:51)
[2018-11-12] MEDS: Latanoprost 0.005% 1 Bottle 1 DRP EACH EYE (20:36)
[2018-11-12] MEDS: Atorvastatin Calcium 40 MG Tablet PO (20:38)
[2018-11-13 05:29] VITALS: BP 141/72; PULSE 73
[2018-11-13] MEDS: Loratadine 10 MG Tablet PO (05:29)
[2018-11-13] MEDS: APIXABAN 5 MG TABLET PO ×2 (05:29→17:15)
[2018-11-13] MEDS: Isosorbide Mononitrate 60 MG Tablet PO (05:29)
[2018-11-13] MEDS: Metoprolol(XL)Succ 50 MG Tablet PO (05:29)
[2018-11-13] MEDS: Senna/Docusate Sodium 1 Tablet 2 TABLET PO (05:29)
[2018-11-13] MEDS: Furosemide 40 MG Tablet PO ×2 (05:29→17:15)
[2018-11-13] MEDS: Menthol/Lanolin/Calamine/Znox 113 GM Tube 1 APPLIC TOPICAL ×2 (05:31→20:26)
[2018-11-13] MEDS: Multivitamins,Ther W-Minerals Tablet 1 TABLET PO (07:21)
[2018-11-13] MEDS: Folic Acid 1 MG Tablet 0.5 MG PO (07:21)
[2018-11-13] MEDS: Magnesium Oxide 400 MG Tablet PO (07:21)
--- NOTE | 2018-11-13 11:07 | PCM.PN.PAL ---
Progress Note- Hospice Date: 11/13/18 Subjective: Pt is 83 y/o male with medical hx of hospitalized with acute respiratory failure secondary to PE and complicated by acute on chronic diastolic CHF, epistaxis, hemoptysis. Pt admitted to TCU with debility and for rehabilitation, strengthening prior to potential dc to home with spouse. Pt has made good progress while in TCU. Seen today in f/u. Discussed with staff. Up in chair. Now on room air. Up with walker and one assist and standby. Eating well. Denies pain. Bowels and bladder ok. Mood and affect seem to be better. No bleeding noted. Seems to have gained some strength. Wants to go home. DC plan for 11/16 to go home with home health and palliative care. Meds reviewed, etc.. Objective: Vital Signs Temp 98.2 F 11/12/18 16:00 Pulse 73 11/13/18 05:29 Resp 18 11/12/18 16:00 BP 141/72 H 11/13/18 05:29 Pulse Ox 100 11/12/18 16:00 Intake & Output 11/11/18 11/12/18 11/13/18 23:59 23:59 23:59 Intake Total 720 / 720 480 / 480 120 / 120 Balance 720 / 720 480 / 480 120 / 120 Weight: 207 lb 4 oz Intake: Oral 720 / 720 480 / 480 120 / 120 Other: Number of Voids 2 Incontinent Amount Large Current Medications Albuterol Sulfate (Ventolin Aerosols) 2.5 mg INHALATION Q2H PRN PRN PRN Reason: WHEEZING Albuterol/Ipratropium (Duoneb) 3 ml INHALATION Q6HWA.RT PRN PRN Reason: SHORTNESS OF BREATH Last Admin: 10/17/18 11:38 Dose: 3 ml Documented by: Apixaban (Eliquis) 5 mg PO BID [facility] Last Admin: 11/13/18 05:29 Dose: 5 mg Documented by: Atorvastatin Calcium (Lipitor) 40 mg PO QHS [facility] Last Admin: 11/12/18 20:38 Dose: 40 mg Documented by: Bisacodyl (Dulcolax) 10 mg RECTAL DAILY PRN PRN Reason: Constipation Last Admin: 10/13/18 22:16 Dose: 10 mg Documented by: Calamine/Phenol (Calmoseptine Ointment) 1 applic TOPICAL 0600,2200 [facility]; Protocol Last Admin: 11/13/18 05:31 Dose: 1 applicatio Documented by: Calcium Carbonate (Tums) 1,000 mg PO Q4H PRN PRN PRN Reason: INDIGESTION Last Admin: 10/17/18 11:50 Dose: 1,000 mg Documented by: Folic Acid (Folic Acid) 0.5 mg PO DAILY@0800 [facility] Last Admin: 11/13/18 07:21 Dose: 0.5 mg Documented by: Furosemide (Lasix) 40 mg PO BID [facility] Last Admin: 11/13/18 05:29 Dose: 40 mg Documented by: Isosorbide Mononitrate (Imdur) 60 mg PO DAILY [facility] Last Admin: 11/13/18 05:29 Dose: 60 mg Documented by: Latanoprost (Xalatan Opthalmic) 1 drop EACH EYE QHS [facility] Last Admin: 11/12/18 20:36 Dose: 1 drop Documented by: Loratadine (Claritin) 10 mg PO DAILY [facility] Last Admin: 11/13/18 05:29 Dose: 10 mg Documented by: Magnesium Oxide (Mag-Ox 400) [facility] Last Admin: 11/13/18 07:21 Dose: 400 mg Documented by: Metoprolol Succinate (Toprol Xl (Beta Luis Felipe)) 50 mg PO DAILY [facility] Last Admin: 11/13/18 05:29 Dose: 50 mg Documented by: Multivitamins/Minerals (Multivitamin With Minerals) 1 tablet PO DAILY@0800 [facility] Last Admin: 11/13/18 07:21 Dose: 1 tablet Documented by: Nitroglycerin (Nitrostat) 0.4 mg SUBLINGUAL Q5M PRN PRN Reason: CARDIAC/CHEST PAIN Oxycodone HCl (Oxyir) 5 mg PO Q4H PRN PRN PRN Reason: SEVERE PAIN (6-10/10) Last Admin: 11/02/18 06:21 Dose: 5 mg Documented by: Polyethylene Glycol (Miralax) 17 gm PO DAILY [facility] Last Admin: 11/13/18 05:30 Dose: Not Given Documented by: Senna/Docusate Sodium (Senokot-S, Renata-Colace) 2 tablet PO BID [facility] Last Admin: 11/13/18 05:29 Dose: 1 tablet Documented by: Tamsulosin HCl (Flomax) 0.4 mg PO DAILY@1730 JU[facility] Last Admin: 11/12/18 16:51 Dose: 0.4 mg Documented by: Tramadol HCl (Ultram) 50 mg PO Q6H PRN PRN PRN Reason: MODERATE PAIN (4-5/10) Last Admin: 11/03/18 10:07 Dose: 50 mg Documented by: - Physical Exam General: Alert, Oriented x3, Cooperative, No apparent distress HEENT: Atraumatic, PERRLA, EOMI Oral: Moist Mucosa Neck: Supple, No JVD, No Nodes, No Nuchal Rigidity Lungs: No rhonchi, No wheeze, No rales, Diminished Cardiovascular: Regular rate, Regular Rhythm, No murmurs Abdomen: Bowel Sounds Present, Soft, Non Tender, Obese Extremities: No clubbing, No cyanosis, Diminished Peripheral Pulses Skin: No rashes, No breakdown Musculoskeletal: No Tenderness to Palpation of Joints or Extremities, No Muscle Wasting, Arthritic Changes Lymphatic: No Cervical, Supraclavicular, or Inguinal Adenopathy Neurological: Neuro grossly intact Psych/Mental Status: Normal Affect, Appropriate Capacity - Capacity Assessment Tool Can the patient make a choice & communicate that choice?: Yes Can the patient understand benefits, risks and alternatives?: Yes Assessment/Plan All Active Problems (Last Reviewed 06/05/18 @ 13:40 by Fito Alcala MD) Acute respiratory failure with hypoxia (Acute) Pulmonary embolism (Acute) Debility (Acute) Chest pain (Acute) Acute on chronic diastolic (congestive) heart failure (Acute) Dyspnea on exertion (Acute) LUQ abdominal pain (Acute) NSTEMI (non-ST elevated myocardial infarction) (Acute) H/O coronary artery bypass surgery (Resolved 09/12/00) History of coronary artery stent placement (Resolved 05/13/18) Cellulitis (Resolved) Cellulitis and abscess of left lower extremity (Resolved) Chest pain (Resolved) Right pulmonary embolus (Resolved) 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 (Resolved) Pt is 83 y/o black male with hx as outlined prior and above. Dc plan for thursday 11/16 to go home with his and with home health. Will f/u at home with palliative care. Continue with therapies and strengthening at home. No home O2. Continue eliquis and meds reviewed. Has progressed well in TCU. Concern for reisk of further PE and conditioning. Strongly recomend f/u with Dr. Alcala and Dr. Winslow as well as Dr. Ramirez. Pt voiced understanding. Current meds important and reviewed. At this point not hospice appropriate but monitor closely. Support and education given today to pt. Plan home f/u with palliative care. Prognosis remains guarded to fair.
--- NOTE | 2018-11-13 14:33 | CASEMGMT ---
Social Work Spoke with patient's son and daughter in law to answer DC questions. Son requesting referral to [facility]. Referral made. Explained all DC services in place. No issues noted. Plan to DC 11/16. KELLI McnairW
[2018-11-13 16:00] VITALS: BP 125/57; PULSE 58; RESP 18; TEMP 37.1; O2SAT 98
[2018-11-13] MEDS: Atorvastatin Calcium 40 MG Tablet PO (20:26)
[2018-11-13] MEDS: Latanoprost 0.005% 1 Bottle 1 DRP EACH EYE (20:26)
[2018-11-13 20:28] VITALS: O2SAT 95
[2018-11-14 06:43] VITALS: BP 141/67; PULSE 71
[2018-11-14] MEDS: Loratadine 10 MG Tablet PO (06:43)
[2018-11-14] MEDS: Furosemide 40 MG Tablet PO ×2 (06:43→17:01)
[2018-11-14] MEDS: APIXABAN 5 MG TABLET PO ×2 (06:43→17:01)
[2018-11-14] MEDS: Metoprolol(XL)Succ 50 MG Tablet PO (06:43)
[2018-11-14] MEDS: Isosorbide Mononitrate 60 MG Tablet PO (06:43)
[2018-11-14] MEDS: Menthol/Lanolin/Calamine/Znox 113 GM Tube 1 APPLIC TOPICAL ×2 (06:44→22:14)
[2018-11-14] MEDS: Multivitamins,Ther W-Minerals Tablet 1 TABLET PO (08:45)
[2018-11-14] MEDS: Folic Acid 1 MG Tablet 0.5 MG PO (08:45)
[2018-11-14] MEDS: Magnesium Oxide 400 MG Tablet PO (08:45)
[2018-11-14 15:32] VITALS: BP 115/66; PULSE 71; RESP 18; TEMP 37.1; O2SAT 100
[2018-11-14] MEDS: Senna/Docusate Sodium 1 Tablet 2 TABLET PO (17:01)
[2018-11-14] MEDS: Tamsulosin HCl 0.4 MG Capsule PO (17:01)
[2018-11-14] MEDS: Atorvastatin Calcium 40 MG Tablet PO (22:14)
[2018-11-14] MEDS: Latanoprost 0.005% 1 Bottle 1 DRP EACH EYE (22:14)
[2018-11-15 06:28] VITALS: BP 129/64; PULSE 64
[2018-11-15] MEDS: Isosorbide Mononitrate 60 MG Tablet PO (06:28)
[2018-11-15] MEDS: APIXABAN 5 MG TABLET PO ×2 (06:28→17:57)
[2018-11-15] MEDS: Metoprolol(XL)Succ 50 MG Tablet PO (06:28)
[2018-11-15] MEDS: Loratadine 10 MG Tablet PO (06:28)
[2018-11-15] MEDS: Furosemide 40 MG Tablet PO ×2 (06:28→17:57)
[2018-11-15] MEDS: Senna/Docusate Sodium 1 Tablet 2 TABLET PO (06:29)
[2018-11-15] MEDS: Menthol/Lanolin/Calamine/Znox 113 GM Tube 1 APPLIC TOPICAL ×2 (06:29→20:52)
[2018-11-15] MEDS: Multivitamins,Ther W-Minerals Tablet 1 TABLET PO (08:41)
[2018-11-15] MEDS: Magnesium Oxide 400 MG Tablet PO (08:41)
[2018-11-15] MEDS: Folic Acid 1 MG Tablet 0.5 MG PO (08:41)
[2018-11-15 15:48] VITALS: BP 113/60; PULSE 72; RESP 20; TEMP 36.8; O2SAT 100
[2018-11-15] MEDS: Tamsulosin HCl 0.4 MG Capsule PO (17:58)
[2018-11-15] MEDS: Atorvastatin Calcium 40 MG Tablet PO (20:52)
[2018-11-15] MEDS: Latanoprost 0.005% 1 Bottle 1 DRP EACH EYE (20:52)
[2018-11-16] MEDS: Loratadine 10 MG Tablet PO (06:29)
[2018-11-16] MEDS: Isosorbide Mononitrate 60 MG Tablet PO (06:29)
[2018-11-16 06:31] VITALS: BP 118/56; PULSE 67
[2018-11-16] MEDS: Metoprolol(XL)Succ 50 MG Tablet PO (06:31)
[2018-11-16] MEDS: APIXABAN 5 MG TABLET PO (06:31)
[2018-11-16] MEDS: Furosemide 40 MG Tablet PO (06:31)
[2018-11-16] MEDS: Menthol/Lanolin/Calamine/Znox 113 GM Tube 1 APPLIC TOPICAL (06:33)
[2018-11-16] MEDS: Magnesium Oxide 400 MG Tablet PO (07:46)
[2018-11-16] MEDS: Folic Acid 1 MG Tablet 0.5 MG PO (07:46)
[2018-11-16] MEDS: Multivitamins,Ther W-Minerals Tablet 1 TABLET PO (07:46)
[2018-11-16 14:42] VITALS: BP 114/58; PULSE 70; RESP 18; TEMP 36.7; O2SAT 99
--- NOTE | 2018-11-23 10:47 | MDS.RN ---
Information for the mds was obtained from review of the clinical record, interview of resident, staff, and direct observation of resident's care.
== END 2018-11-16 14:45 | disposition home health service (06) | DRG 947 ==
PROVIDERS: Admitting Provider Family Medicine Geriatric Medicine; Family Provider Family Medicine; PCP Family Medicine; Visit Provider Family Medicine Geriatric Medicine
DX: R53.81 Other malaise (principal); I26.99 Other pulmonary embolism without acute cor pulmonale; I21.4 Non-ST elevation (NSTEMI) myocardial infarction; I50.32 Chronic diastolic (congestive) heart failure; G43.909 Migraine, unspecified, not intractable, without status migrainosus; E78.5 Hyperlipidemia, unspecified; I11.0 Hypertensive heart disease with heart failure; N40.0 Benign prostatic hyperplasia without lower urinary tract symptoms; I25.10 Atherosclerotic heart disease of native coronary artery without angina pectoris; K21.9 Gastro-esophageal reflux disease without esophagitis; H40.9 Unspecified glaucoma; M48.061 Spinal stenosis, lumbar region without neurogenic claudication; I27.21 Secondary pulmonary arterial hypertension; Z95.1 Presence of aortocoronary bypass graft; G47.33 Obstructive sleep apnea (adult) (pediatric); E53.8 Deficiency of other specified B group vitamins; E83.42 Hypomagnesemia
CPT/HCPCS: 36415; 71046; 80048; 85025; 87493; 94640; 97110; 97116; 97163; 97166; 97530; 97535; 97802

== ENCOUNTER → 2018-11-27 15:12 | Outpatient (CLI) | payer MEDICARE, OTHER, SELFPAY ==
[2018-11-19 10:43] VITALS: BMI 32.5
[2018-11-27 17:31] LABS: Absolute Lymphocyte Count 2.76 X10^3/uL (0.83-4.51); Absolute Neutrophil Count 3.1 X10^3/uL (2.0-7.7); Basophil# 0.02 X10^3/uL; Basophil% 0.3 % (0-1); Eosinophil# 0.18 X10^3/uL; Eosinophils% 2.7 % (0-5); Hematocrit 33.1 % (40-54); Hemoglobin 10.2 g/dL (13.0-16.5); Lymphocyte # 2.76 X10^3/ul (4.0); Mean Corp Hgb Conc 30.8 g/dL (32-36); Mean Corpuscular Hgb 27.4 pg (27.0-32.0); Mean Platelet Vol. 10.4 fl (6.2-12.0); Monocyte# 0.69 X10^3/uL; Monocyte% 10.3 % (0-10); NRBC Flagged by Analyzer 0 % (0-5); Neutrophil # 3.06 X10^3/uL (2.7-7.7); Neutrophil % 45.4 % (47-70); Platelet Count 248 K/mm3 (150-450); RBC Distribution Width CV 19.5 % (11.6-14.6); RBC Distribution Width SD 63.8 fl (35.1-43.9); Red Blood Count 3.72 M/mm3 (4.6-6.2); White Blood Count 6.7 K/mm3 (4.4-11.0)
[2018-11-27 17:42] LABS: Anion Gap 5 (5-15); BUN 18 mg/dL (7-18); BUN/Creat Ratio 11.4 RATIO (10-20); Chloride 106 mmol/L (98-107); Creatinine, Serum 1.58 mg/dL (0.70-1.30); EST Glomerular Filtration Rate 45 mL/min (>60); Est Glom Filt Rate - Afr Amer 54 mL/min (>60); Glucose 84 mg/dL (74-106); Sodium Level 139 mmol/L (136-145)
== END ==
PROVIDERS: Family Provider Family Medicine; PCP Family Medicine; Referring Provider Family Medicine; Visit Provider Family Medicine
DX: D64.9 Anemia, unspecified (principal)
CPT/HCPCS: 36415; 80048; 85025

== ENCOUNTER → 2018-12-25 11:51 | Outpatient (CLI) | payer MEDICARE, OTHER, SELFPAY ==
[2018-11-19 10:43] VITALS: BMI 32.5
[2018-12-11 10:25] VITALS: BMI 33.6
--- NOTE | 2018-12-26 08:23 | PFT_ITS ---
INTRODUCTION: The patient is an 83-year old -[place] male who presents for pulmonary function studies secondary to a diagnosis of dyspnea on exertion. Respiratory therapy reports good patient effort. Bronchodilators were used during testing. INTERPRETATION: Forced expiration spirometry demonstrates no evidence of a large airways obstructive ventilatory defect. There was no significant response to aerosolized bronchodilators. Spirograms are of good quality and plateau normally. Body plethysmography was performed and reveals a decrease TLC to 4.37 L, 78% of predicted, indicative of a mild restrictive ventilatory impairment. The remainder of the lung volumes are symmetrically reduced. Diffusing capacity by single breath CO is reduced at 50% of predicted. IMPRESSION: Isolated mild restrictive ventilatory impairment with disproportionate reduction in diffusing capacity.
== END ==
PROVIDERS: Family Provider Family Medicine; PCP Family Medicine; Referring Provider Nurse Practitioner Acute Care; Visit Provider Nurse Practitioner Acute Care
DX: R06.09 Other forms of dyspnea (principal)
CPT/HCPCS: 94060; 94726; 94729

== ENCOUNTER 2019-01-28 10:00 | Outpatient (RCR) | payer MEDICARE, SELFPAY ==
[2019-01-20 08:12] VITALS: BMI 35.4
[2019-01-20 09:56] VITALS: BP 158/78; PULSE 72; RESP 18; TEMP 37.5; BMI 34.7
--- NOTE | 2019-01-20 11:26 | PCM.WC.HP ---
(1) Ulcer of right lower extremity with fat layer exposed Status: Chronic Current Visit: Yes Code(s): L97.912 - Non-pressure chronic ulcer of unspecified part of right lower leg with fat layer exposed (2) Venous insufficiency Status: Suspected Current Visit: Yes Code(s): I87.2 - Venous insufficiency (chronic) (peripheral) (3) Bilateral leg edema Status: Chronic Current Visit: Yes Code(s): R60.0 - Localized edema (4) Other specified peripheral vascular diseases Status: Suspected Current Visit: Yes Code(s): I73.89 - Other specified peripheral vascular diseases (5) Malnutrition Status: Chronic Current Visit: Yes Code(s): E46 - Unspecified protein-calorie malnutrition (6) Cellulitis of right leg Status: Suspected Current Visit: Yes Code(s): L03.115 - Cellulitis of right lower limb History of Present Illness Date of Service: 01/21/19 Chief Complaint: Nonhealing wound of left lower leg History of Wound: 83-year-old black male who comes to the wound center referred by Dr. Feliciano for new large ulcer on the right leg. He relates he has had ulcers, swelling, and like blisters. He is previously known to the wound healing center within the past couple of years. Patient has history of quadruple bypass and use most of the veins from his left lower leg and an artery from his left forearm. Garcia states his left leg is always swollen and does not understand why. He thought this was an ulcer from using [place] weed killer. The onset of this ulcer was approximately 3 weeks ago. He denies any specific trauma. He has been performing wound care on his own at home with household items. His primary care physician started him on an oral antibiotics and recently recommended a refill. He denies odor or redness of the leg at this time. He denies fever, chill, nausea, vomiting, loss of appetite. He does have mild pain to the ulcer site. 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 with a 2.25 x 24 Promus Synergy and PTCA/EASTON of distal RCA in stent plaque protrusion with possible non occlusive thrombus w/ 3.5 x 32 Promus Synergy05/19/18 PTCA/EASTON distal RCA with a 3.5 x 38 Promus Syergy and EASTON mid RCA with a 4.0 x 32 Promus Synergy Stent 05/13/18 EASTON-Prox LAD w/ 3.5 mm x 20 mm Promus Stent 08/27/12 [id number] & proximal RCA 06/21/2002 Acute on chronic diastolic (congestive) heart failure (Chronic) Secondary pulmonary arterial hypertension (Chronic) Essential (primary) hypertension (Chronic) Hyperlipidemia (Chronic) Dyspnea on exertion (Chronic) Surgical History: angioplasty - Stent., coronary bypass surgery, total hip arthroplasty, - - Hiatal hernia surgery. Allergies/Adverse Reactions: Allergies diazepam [From Valium] Allergy (Intermediate, Verified 01/20/19 08:15) Other HALLUCINATIONS morphine Allergy (Intermediate, Verified 01/20/19 08:15) Other TWITCHES Home Medications: Ambulatory Orders Medication Instructions Recorded Metoprolol(XL)Succ [Toprol Xl 50 mg PO DAILY 06/23/13 (Beta Luis Felipe)] Cetirizine HCl [Zyrtec] 10 mg PO DAILY 03/25/15 Isosorbide Mononitrate [Isosorbide 60 mg PO DAILY 03/25/15 Mononitrate ER] Multivit-Min/FA/Lycopen/Lutein 1 ea PO DAILY 03/25/15 [Centrum Silver Tablet] magnesium oxide 400 mg (241.3 mg 400 mg PO QDAY tab 05/08/17 magnesium) tablet tamsulosin 0.4 mg capsule 0.4 mg PO DAILY 30 Days #30 12/05/17 Folic Acid 0.4 mg PO DAILY@0800 05/10/18 Travoprost 0.004% [Travatan-Z 1 drp EACH EYE QHS 05/10/18 0.004% Eye Drop] Nitroglycerin (INPATIENT USE) 0.4 mg SUBLINGUAL Q5M PRN tab.subl 10/13/18 [Nitrostat] Apixaban [Eliquis] 5 mg PO BID #60 tab 11/11/18 Furosemide [Lasix] 40 mg PO BID #60 tab 11/11/18 aspirin 81 mg tablet,delayed 81 mg PO QDAY #90 tab 12/11/18 release atorvastatin 40 mg tablet 40 mg PO QHS #90 tab 12/11/18 finasteride 5 mg tablet 5 mg PO DAILY #30 tab 12/11/18 hydrocodone 5 mg-acetaminophen 325 PO #84 tab 12/11/18 mg tablet naproxen 500 mg tablet 500 mg PO BID #60 tab 12/11/18 pantoprazole 20 mg tablet,delayed 40 mg PO DAILY #60 tab 12/11/18 release - Family History Maternal Family History: Family History (Last Reviewed 01/20/19 @ 08:16 by Inga Gracia) Father No problems noted. Mother Cancer Brother Throat cancer Brother COPD (chronic obstructive pulmonary disease) Brother No problems noted. Sister COPD (chronic obstructive pulmonary disease) Heart disease Sister COPD (chronic obstructive pulmonary disease) No pertinent history Paternal Family History: Family History (Last Reviewed 01/20/19 @ 08:16 by Inga Gracia) Father No problems noted. Mother Cancer Brother Throat cancer Brother COPD (chronic obstructive pulmonary disease) Brother No problems noted. Sister COPD (chronic obstructive pulmonary disease) Heart disease Sister COPD (chronic obstructive pulmonary disease) No pertinent history Smoking Status: Never smoker Review of Systems Constitutional: Denies: Chills, Fever, Fatigue Cardiovascular: Denies: Chest Pain, Claudication Respiratory: Denies: Shortness of Breath Gastrointestinal: Denies: Nausea, Vomiting Musculoskeletal: Reports: Leg Pain. Denies: Foot Pain, Joint Tenderness Skin: Reports: Skin Changes, Wounds Neurological: Reports: Balance problems Endocrine: Reports: Change in Body Habitus - Physical Exam Vital Signs Temp Pulse Resp BP 99.5 F H 72 18 158/78 H 01/20/19 09:56 01/20/19 09:56 01/20/19 09:56 01/20/19 09:56 General: Alert, Oriented x3, Cooperative, No apparent distress HEENT: Atraumatic Extremities: No cyanosis, Capillary Refill Less than 3 Seconds, No Calf Tenderness - Negative Masoud and Farrell sign bilateral, Diminished Peripheral Pulses - 2 out of 4 DP pulses bilaterally and nonpalpable PT pulses however additional edema at this level is noted, Edema - Moderate bilateral lower extremity Skin: Ulcer/ Wound - No purulence, erythema, streaking, maceration, deep tissue exposure necrosis. The ulcer bed is granular and fibrous with some overlying intact skin layer from drained indeed removed large bulla. There is a mild odor and. Also moisture is noted. There is no fluctuance or bogginess to palpation. Peripheral skin is hairless, atrophic, fragile, and hypopigmented Wound Measurements and Assessment WC - Nurse 1 - General Ulcer Measurement Start: 01/20/19 09:56 Freq: Status: Active Protocol: Activity Type Activity Date Activity User E-Sign Co-Sign Detail Recorded Client Recorded Date Recorded By Document 01/20/19 09:56 [id number] 01/20/19 10:14 01/20/19 09:56 Wound Center Nurse 1 [Ulcer Assessment] #4 RLE -Combined with other wound No -Current Size (cm) - Length 11.4 -Current Size (cm) - Width 15.0 -Current Size (cm) - Depth 0.1 -Total Square Cm 171.00 -Date of Last Picture (Recall this 01/20/19 field) -Photo Taken Yes -Epithelialization None Present -Tunneling No -Undermining/Tunneling No -Circular Undermining No -Exudate Amt Large -Exudate Type Yellow/Green -Wound Margin Distinct, Outline Attached -Granulation Amt Medium (34-66%) -Granulation Quality Red -Slough/Fibrin Yes -Necrosis Amt Small (1-33%) -Necrotic Tissue Type Adherent Slough -Structure Exposed N/A -Texture (Renata-wound Skin Appearance) Friable, Scarring -Moisture (Renata-wound Skin Appearance Weeping ) -Color (Renata-wound Skin Appearance) No Abnormality, Assessed -Temperature (Renata-wound Skin No Abnormality Appearance) (Pt Warm) -Tenderness on Palpation (Renata-wound Yes Skin Appearance) -Ulcer Cleansing Rinsed/ Irrigated with Saline -Foul Odor after Cleansing No -Anesthetic Used 4% Lidocaine Solution [Edema Assessment] -Lower Limb Edema Present Yes -Right Calf (cm) 43.6 -Right Ankle (cm) 23.2 -Left Calf (cm) 39.5 -Left Ankle (cm) 23.0 WC - Nurse 2 - General Ulcer CM Notes Start: 01/20/19 09:56 Freq: Status: Active Protocol: Activity Type Activity Date Activity User E-Sign Co-Sign Detail Recorded Client Recorded Date Recorded By Document 01/20/19 10:44 AN [id number] 01/20/19 10:51 AN 01/20/19 10:44 Wound Center Nurse 2 [Procedure/Treatment] #4 RLE -Time 10:44 -Correct Patient Yes -Correct Side, Site, Position Yes -Correct Procedure Yes -Procedure Performed Yes -Type of Procedure Debridement -Clinical Debridement Subcutaneous -Post Debridement Size (cm) - Length 11.5 -Post Debridement Size (cm) - Width 15.1 -Post Debridement Size (cm) - Depth 0.1 -Total Square Cm 173.65 -Wound/Ulcer Outcome Not Healed -Ulcer Cleansing Rinsed/ Irrigated with Saline -Foul Odor after Cleansing No -Bioengineered Tissue No -Bleeding Controlled with Pressure -Offloading No -Treatment Response Procedure Tolerated Well [See Physician Procedure note for Specifics] Pain Scale: 0-10 Numeric [Pain] -Is Patient Pain Free? Yes Musculoskeletal: No Tenderness to Palpation of Joints or Extremities, Muscle Wasting, - - Compartment right lower extremity soft Neurological: Sensory exam intact to light touch and pain Psych/Mental Status: Normal Affect, Appropriate Debridement Note Post-Debridement Measurements/Treatment WC - Nurse 2 - General Ulcer CM Notes Start: 01/20/19 09:56 Freq: Status: Active Protocol: Activity Type Activity Date Activity User E-Sign Co-Sign Detail Recorded Client Recorded Date Recorded By Document 01/20/19 10:44 AN [id number] 01/20/19 10:51 AN 01/20/19 10:44 Wound Center Nurse 2 #4 RLE -Time 10:44 -Correct Patient Yes -Correct Side, Site, Position Yes -Correct Procedure Yes -Procedure Performed Yes -Type of Procedure Debridement -Clinical Debridement Subcutaneous -Post Debridement Size (cm) - Length 11.5 -Post Debridement Size (cm) - Width 15.1 -Post Debridement Size (cm) - Depth 0.1 -Total Square Cm 173.65 -Wound/Ulcer Outcome Not Healed -Ulcer Cleansing Rinsed/ Irrigated with Saline -Foul Odor after Cleansing No -Bioengineered Tissue No -Bleeding Controlled with Pressure -Offloading No -Treatment Response Procedure Tolerated Well Pain Scale: 0-10 Numeric Is Patient Pain Free? Yes Wound debrided: leg Laterality: Right Type of Debridement: Excisional debridement Anesthesia Used: 5% Lidocaine Gel Depth: in the subcutaneous layer Percentage of wound debrided: 100 Instrument Used: #15 blade Tissue Removed: fibrous, devitalized subcutaneous, biofilm, slough Severity: Fat Layer Exposed Amount of bleeding with debridement: Mild Bleeding Controlled with: Pressure Patient tolerated procedure well Assessment/Plan Active Problems (Last Reviewed 01/20/19 @ 08:16 by Inga Gracia) Ulcer of right lower extremity with fat layer exposed (Chronic) Bilateral leg edema (Chronic) Malnutrition (Chronic) Assessment: Venous ulcer of right anterior lower leg with fat layer exposed. Venous insufficiency. Leg edema. History of recurrent ulcers with delayed healing. Cellulitis with treatment initiation of oral antibiotics. Bacterial contamination concern Plan: I reviewed and discussed his case. I reviewed his diagnostic data from November 27, 2018 including CBC and CMP without gross abnormalities. Subcutaneous excisional debridement was performed as noted in the clinical panel. Recommend changing the dressing daily with [employer] and I recommend Tubigrip compression dressing. To elevate limb at rest. To avoid idle standing or sitting. It is noted his primary care physician started him on antibiotics and he does have some signs of local inflammation without signs of systemic infection. He was reassured there is no redness or streaking noted at the ulcer site. A culture was obtained today. To complete his previously prescribed antibiotic course. It is okay to wash the ulcer site with regular soap and water prior to dressing changes. I recommend work-up for his veins and arteries of the lower extremity to determine if there is underlying etiology for these recurrent ulcers. A order for noninvasive arterial studies as well as venous Doppler with reflux evaluation was provided today. It is noted he did have these test performed within the past 2 to 5 years. It is also noted that he has had several cardiac procedures in which the leg veins were harvested for use. I recommend nutritional supplementation to optimize healing and a prescription for Lorenzo was provided. His work-up and medical documentation from Dr. Feliciano will be requested for continuity of care. To monitor for worsening status of local infection and to call the office immediately if this is noted. To return to the wound healing center in 1 week or call sooner if any questions or concerns. I did answer all his questions today and explained his etiology, treatment plan, and anticipated healing and management course.
[2019-01-20 17:35] LABS: M R Staph aureus DNA By PCR Negative (Negative); Probe Check PASS; Specimen Processing Control PASS; Staph aureus DNA By PCR NEGATIVE (Negative)
--- NOTE | 2019-01-28 10:06 | VDLE_ITS ---
Reason For Study: PVD RIGHT LEFT CFV is compressible, spontaneous, phasic, FV is compressible, spontaneous, phasic, competent and demonstrates normal competent and demonstrates normal augmentation. augmentation. FV is compressible, spontaneous, phasic, POP V is compressible, spontaneous, phasic, competent and demonstrates normal competent and demonstrates normal augmentation. augmentation. POP V is compressible, spontaneous, phasic, T/P Trunk is compressible. competent and demonstrates normal LT PerV is compressible. augmentation. Acute deep vein thrombosis is noted in the T/P Trunk is compressible. left posterior tibial vein. PTV is compressible. Acute deep vein thrombosis is noted in the Unable to visualized peroneal veins. left CFV with minimal flow noted. SFJ is competent and measures 0.52 x 0.52 cm. GSV proximal thigh measures 0.31 x 0.31 cm. INCOMPETENT agricultural research technician noted 16 cm above GSV at knee measures 0.37 x 0.42 cm. medial malleolus. GSV is competent throughout. GSV is harvested below knee. SSV proximal calf is competent and measures SFJ is INCOMPETENT and measures 0.48 x 0.48 0.20 x 0.20 cm. cm. Procedure GSV proximal thigh measures 0.39 x 0.40 cm. Exam performed in department. GSV at knee measures 0.28 x 0.27 cm. Unable to do arterial exam due to blood clot. GSV is competent throughout. A preliminary report was called and/or faxed SSV at junction is competent and measures to Fascione. Pt sent to ED. 0.23 x 0.22 cm. Interpretation Summary Acute deep vein thrombosis is noted in the left common femoral vein. Acute deep vein thrombosis is noted in the left posterior tibial vein. The remainder of the left lower extremity deep venous system is patent and compressible. The left femoral vein and popliteal vein are competent. Deep veins of the right lower extremity are patent and compressible segmentally. There is no evidence of right lower extremity deep vein thrombosis. Valvular competence appears intact within the proximal deep venous system on the right . The right great saphenous vein appears patent and compressible segmentally. The left great saphenous vein is patent and compressible above the knee, but previously harvested below the knee. The right sapheno-femoral junction is competent. The left sapheno-femoral junction is incompetent. Great saphenous veins are competent bilaterally. Small saphenous veins are patent and competent bilaterally. An incompetent agricultural research technician vein is noted in the left calf, located 16 centimeters proximal to the left medial malleolus. The right peroneal veins were not visualized. Ordering Physician: Michelle Escalante Referring Physician: Calderon Ramirez Performed By: Concha Fraire RVT
== END 2019-01-28 23:59 ==
LOC: CVS 10:00
PROVIDERS: Family Provider Family Medicine; PCP Family Medicine; Referring Provider Podiatrist; Visit Provider Podiatrist
DX: I87.2 Venous insufficiency (chronic) (peripheral) (principal); I73.89 Other specified peripheral vascular diseases; L97.812 Non-pressure chronic ulcer of other part of right lower leg with fat layer exposed; R60.0 Localized edema; I82.442 Acute embolism and thrombosis of left tibial vein; I82.412 Acute embolism and thrombosis of left femoral vein; G47.33 Obstructive sleep apnea (adult) (pediatric); I25.10 Atherosclerotic heart disease of native coronary artery without angina pectoris; I27.21 Secondary pulmonary arterial hypertension; I11.0 Hypertensive heart disease with heart failure; I50.32 Chronic diastolic (congestive) heart failure; E78.5 Hyperlipidemia, unspecified; Z86.711 Personal history of pulmonary embolism; Z79.899 Other long term (current) drug therapy; Z79.01 Long term (current) use of anticoagulants; Z79.82 Long term (current) use of aspirin
CPT/HCPCS: 11042; 11045; 87070; 87075; 87077; 87186; 87205; 87640; 93970; 99212; G0463

== ENCOUNTER 2019-01-28 11:38 | Emergency (ER) | payer MEDICARE, SELFPAY ==
[2019-01-20 09:56] VITALS: BMI 34.7
[2019-01-28 11:39] VITALS: BP 144/65; PULSE 62; RESP 18; TEMP 36.6; O2SAT 98; BMI 34.7
--- NOTE | 2019-01-28 11:42 | ED.RN ---
PT NEEDS BEDWEIGHT TAKEN.
--- NOTE | 2019-01-28 11:55 | ED.DCSUM_ITS ---
- ER Visit Summary Date of Service: 01/28/19 Chief Complaint: [DVT left leg] History of Present Illness: The patient is a 83 M [presents to the emergency department from outpatient ultrasound with a diagnosed DVT of the left common femoral and posterior tibial vein. Patient currently anticoagulated with El iquis which she is been on for 3 to 4 months. Patient denies any chest pain or shortness of breath. Patient has history of PE, coronary artery disease, CHF, and pulmonary hypertension. DVT study was ordered by podiatry. Patient has a chronic wound on his right lower extremity.] Physical Examination: [HEENT-PERRLA, EOMI. Cranial nerves II through XII grossly intact. TMs clear. Mucous membranes moist. No adenopathy. Cardiovascular-regular rate and rhythm without murmur or ectopy Lungs-clear to auscultation, chest wall stable without crepitus or subcu emphysema Abdomen-normoactive bowel sounds, soft, nontender, no rebound or rigidity, no peritoneal signs. Extremities-intact ?4, normal range of motion, normal pulses, atraumatic. Patient has +2 edema both lower extremities. Patient has a duration on his right lower extremity anterior tibial region.] Test Results: [None indicated] Emergency Department Course and Treatment: [Case was discussed with patient's primary care physician Dr. Calderon Ramirez. I was asked to discharge patient home with no further treatment at this time as he is on Eliquis. Dr. Calderon Ramirez will discuss with vascular to see if patient would benefit from possibly placing a [place] filter. It was felt patient can follow-up as an outpatient.] Treatment Plan: [Patient to follow-up with primary care physician to determine if patient is a candidate for [place] filter placement.] Disposition: [Discharged home in stable condition.] Impression: [Left lower extremity DVT] This note was generated with Digital Message [employer] dictation software. It may contain incorrect words, spelling, and punctuation that were not noted in review of the chart prior to signing ED Disposition - Plan for ED Patient: Referrals: Calderon Ramirez MD [Primary Care Provider] -
--- NOTE | 2019-01-28 12:19 | DCINST.ED_ITS ---
ED Disposition - Plan for ED Patient: Instructions: Dvt Prescriptions: Isosorbide Mononitrate [Imdur] 60 mg PO BID #60 tab Transmission Status: Pending to [facility] Amlodipine Besylate [Norvasc] 5 mg PO DAILY #30 tab Transmission Status: Pending to [facility] Referrals: Calderon Ramirez MD [Primary Care Provider] - 3-5 Days
--- NOTE | 2019-01-28 12:19 | ED.DEP ---
ED Disposition - Plan for ED Patient: Instructions: Dvt Referrals: Calderon Ramirez MD [Primary Care Provider] - 3-5 Days
--- NOTE | 2019-01-28 12:19 | ED.DEP ---
ED Disposition - Plan for ED Patient: Instructions: Dvt Prescriptions: Isosorbide Mononitrate [Imdur] 60 mg PO BID #60 tab Transmission Status: Pending to [facility] Amlodipine Besylate [Norvasc] 5 mg PO DAILY #30 tab Transmission Status: Pending to [facility] Referrals: Calderon Ramirez MD [Primary Care Provider] - 3-5 Days
[2019-01-28 13:08] VITALS: PULSE 66; RESP 17; O2SAT 97
== END 2019-01-28 13:10 | disposition home or self-care (01) ==
PROVIDERS: Emergency Provider Emergency Medicine; Family Provider Family Medicine; PCP Family Medicine
DX: I82.412 Acute embolism and thrombosis of left femoral vein (principal); I82.442 Acute embolism and thrombosis of left tibial vein; I27.21 Secondary pulmonary arterial hypertension; I25.10 Atherosclerotic heart disease of native coronary artery without angina pectoris; I11.0 Hypertensive heart disease with heart failure; I50.32 Chronic diastolic (congestive) heart failure; I87.2 Venous insufficiency (chronic) (peripheral); I73.89 Other specified peripheral vascular diseases; L97.812 Non-pressure chronic ulcer of other part of right lower leg with fat layer exposed; R60.0 Localized edema; E78.5 Hyperlipidemia, unspecified; G47.33 Obstructive sleep apnea (adult) (pediatric); Z79.01 Long term (current) use of anticoagulants; Z79.82 Long term (current) use of aspirin; Z79.899 Other long term (current) drug therapy; I25.2 Old myocardial infarction; Z86.711 Personal history of pulmonary embolism; Z95.1 Presence of aortocoronary bypass graft
CPT/HCPCS: 93970; 99282

== ENCOUNTER 2019-02-03 08:00 | Outpatient (RCR) | payer MEDICARE, SELFPAY ==
[2018-01-29 01:54] VITALS: BP 153/74; PULSE 67; RESP 18; TEMP 36.6
== END 2019-02-27 23:59 ==
LOC: WC 08:00
PROVIDERS: Family Provider Family Medicine; PCP Family Medicine; Visit Provider Nurse Practitioner
DX: I87.2 Venous insufficiency (chronic) (peripheral) (principal); L97.812 Non-pressure chronic ulcer of other part of right lower leg with fat layer exposed; R60.0 Localized edema; Z86.718 Personal history of other venous thrombosis and embolism
CPT/HCPCS: 11042; 11045

== ENCOUNTER 2019-02-10 11:15 | Outpatient (RCR) | payer MEDICARE, SELFPAY ==
[2019-01-29 01:32] VITALS: BP 158/78; PULSE 72; RESP 18; TEMP 37.5
[2019-02-03 11:34] VITALS: BP 159/74; PULSE 90; RESP 16; TEMP 37.3; BMI 34.7
--- NOTE | 2019-02-03 14:03 | PN.PCM_ITS ---
(1) Malnutrition Status: Acute Current Visit: Yes Code(s): E46 - Unspecified protein-calorie malnutrition (2) Delayed wound healing Status: Acute Current Visit: Yes Code(s): T14.8XXD - Other injury of unspecified body region, subsequent encounter (3) Bilateral leg edema Status: Chronic Current Visit: No Code(s): R60.0 - Localized edema (4) Malnutrition Status: Chronic Current Visit: No Code(s): E46 - Unspecified protein-calorie malnutrition (5) Cellulitis of right leg Status: Resolved Current Visit: Yes Code(s): L03.115 - Cellulitis of right lower limb (6) Venous insufficiency Status: Chronic Current Visit: Yes Code(s): I87.2 - Venous insufficiency (chronic) (peripheral) (7) Ulcer of right lower extremity with fat layer exposed Status: Chronic Current Visit: Yes Code(s): L97.912 - Non-pressure chronic ulcer of unspecified part of right lower leg with fat layer exposed (8) Deep venous thrombosis Status: Acute Current Visit: Yes Qualifiers: DVT location: lower extremity Laterality: left Code(s): I82.409 - Acute embolism and thrombosis of unspecified deep veins of unspecified lower extremity Type of Wound Date of Service: 02/03/19 Chief Complaint: Nonhealing wound of left lower leg History of Wound: 83-year-old black male who comes to the wound center referred by Dr. Feliciano for right leg ulcer. He relates he has had ulcers, swelling, and like blisters. He is previously known to the wound healing center within the past couple of years. He has been performing wound care this past week as advised. His primary care physician started him on an oral antibiotics and recently recommended a refill of cephalexin for additional 10 days. He denies odor or redness of the leg at this time. He denies fever, chill, nausea, vomiting, loss of appetite. He does have mild pain to the ulcer site that has decreased. He obtained his venous reflux exam to evaluate for venous insufficiency. At the time the exam there was evidence of acute blood clot of the left lower extremity lower and proximal aspects. It is been confirmed that he is on Eliquis and additional blood thinners were not recommended. He also followed up with his primary care physician about this and will further discuss the need for placement of a [place] filter. He plans to follow-up with vascular in regards to this as well. He denies shortness of breath or chest pain at this time. Progress of Wound: Improving - Physical Exam Vital Signs Temp Pulse Resp BP 99.1 F 90 16 159/74 H 02/03/19 11:34 02/03/19 11:34 02/03/19 11:34 02/03/19 11:34 General: Alert, Oriented x3, Cooperative, No apparent distress Extremities: No cyanosis, Capillary Refill Less than 3 Seconds, No Calf Tenderness - Negative Masoud and Farrell sign right and left, Diminished Peripheral Pulses, Edema Skin: Ulcer/ Wound - No purulence, erythema, streaking, odor, infection. Significant peripheral epithelization is noted. His skin is hairless and atrophic. There is no deep tissue exposed necrosis noted Wound Measurements and Assessment WC - Nurse 1 - General Ulcer Measurement Start: 02/03/19 11:30 Freq: Status: Active Protocol: Activity Type Activity Date Activity User E-Sign Co-Sign Detail Recorded Client Recorded Date Recorded By Document 02/03/19 11:34 [facility] [id number] 02/03/19 11:45 [facility] 02/03/19 11:34 Wound Center Nurse 1 [Ulcer Assessment] #4 RLE -Combined with other wound No -Current Size (cm) - Length 10.2 -Current Size (cm) - Width 13.7 -Current Size (cm) - Depth 0.1 -Total Square Cm 139.74 -Photo Taken No -Epithelialization Small 1-33% -Tunneling No -Undermining/Tunneling No -Circular Undermining No -Exudate Amt Medium -Exudate Type Serosanguineous -Wound Margin Distinct, Outline Attached -Granulation Amt Small (1-33%) -Granulation Quality Red -Slough/Fibrin Yes -Necrosis Amt Large (67-100%) -Necrotic Tissue Type Adherent Slough -Texture (Renata-wound Skin Appearance) Assessed, Scarring -Moisture (Renata-wound Skin Appearance Assessed,Dry/ ) Scaly -Color (Renata-wound Skin Appearance) Assessed -Temperature (Renata-wound Skin No Abnormality Appearance) (Pt Warm) -Tenderness on Palpation (Renata-wound No Skin Appearance) -Ulcer Cleansing soap and water -Foul Odor after Cleansing No -Anesthetic Used 4% Lidocaine Solution [Edema Assessment] -Lower Limb Edema Present Yes -Right Calf (cm) 45.1 -Right Ankle (cm) 24 - Nurse 2 - General Ulcer CM Notes Start: 02/03/19 11:30 Freq: Status: Active Protocol: Activity Type Activity Date Activity User E-Sign Co-Sign Detail Recorded Client Recorded Date Recorded By Document 02/03/19 12:22 [email or web address] [id number] 02/03/19 12:26 02/03/19 12:22 Wound Center Nurse 2 [Procedure/Treatment] #4 RLE -Time 12:22 -Correct Patient Yes -Correct Side, Site, Position Yes -Correct Procedure Yes -Procedure Performed Yes -Type of Procedure Debridement -Clinical Debridement Subcutaneous -Post Debridement Size (cm) - Length 6.5 -Post Debridement Size (cm) - Width 4.5 -Post Debridement Size (cm) - Depth 0.1 -Total Square Cm 29.25 -Wound/Ulcer Outcome Not Healed -Ulcer Cleansing Rinsed/ Irrigated with Saline -Foul Odor after Cleansing No -Bioengineered Tissue No -Bleeding Controlled with Pressure -Offloading No -Treatment Response Procedure Tolerated Well [See Physician Procedure note for Specifics] Pain Scale: 0-10 Numeric [Pain] -Is Patient Pain Free? Yes Musculoskeletal: No Tenderness to Palpation of Joints or Extremities, Muscle Wasting, - - Compartments soft to palpate bilateral lower extremities Neurological: Sensory exam intact to light touch and pain Psych/Mental Status: Normal Affect, Appropriate Debridement Note Post-Debridement Measurements/Treatment - Nurse 2 - General Ulcer CM Notes Start: 02/03/19 11:30 Freq: Status: Active Protocol: Activity Type Activity Date Activity User E-Sign Co-Sign Detail Recorded Client Recorded Date Recorded By Document 02/03/19 12:22 [email or web address] [id number] 02/03/19 12:26 02/03/19 12:22 Wound Center Nurse 2 #4 RLE -Time 12:22 -Correct Patient Yes -Correct Side, Site, Position Yes -Correct Procedure Yes -Procedure Performed Yes -Type of Procedure Debridement -Clinical Debridement Subcutaneous -Post Debridement Size (cm) - Length 6.5 -Post Debridement Size (cm) - Width 4.5 -Post Debridement Size (cm) - Depth 0.1 -Total Square Cm 29.25 -Wound/Ulcer Outcome Not Healed -Ulcer Cleansing Rinsed/ Irrigated with Saline -Foul Odor after Cleansing No -Bioengineered Tissue No -Bleeding Controlled with Pressure -Offloading No -Treatment Response Procedure Tolerated Well Pain Scale: 0-10 Numeric Is Patient Pain Free? Yes Wound debrided: anterior leg Laterality: Right Type of Debridement: Excisional debridement Anesthesia Used: 5% Lidocaine Gel Depth: in the subcutaneous layer Percentage of wound debrided: 100 Instrument Used: #15 blade Tissue Removed: fibrous, devitalized subcutaneous, biofilm, slough Severity: Fat Layer Exposed Amount of bleeding with debridement: Mild Bleeding Controlled with: Pressure Patient tolerated procedure well Assessment/Plan Active Problems (Last Reviewed 01/20/19 @ 08:16 by Inga Gracia) Venous insufficiency (Chronic) Malnutrition (Acute) Delayed wound healing (Acute) Ulcer of right lower extremity with fat layer exposed (Chronic) Deep venous thrombosis (Acute) Assessment: Venous ulcer of right anterior lower leg with fat layer exposed. Venous insufficiency. Acute deep venous thrombosis left lower and proximal limb. Leg edema. History of recurrent ulcers with delayed healing. Cellulitis with treatment initiation of oral antibiotics resolving Plan: I reviewed and discussed his case. I reviewed his diagnostic data from November 27, 2018 including CBC and CMP without gross abnormalities. Subcutaneous excisional debridement was performed as noted in the clinical panel. Recommend changing the dressing daily with Aquacel Ag and I recommend Tubigrip compression dressing. To elevate limb at rest. To avoid idle standing or sitting. It is noted his primary care physician started him on antibiotics and he does have some signs of local inflammation without signs of systemic infection. The refill was noted and he was advised to complete this course. I reviewed and discussed his cultures which demonstrated abnormal growth. Due to his improved clinical appearance I do not recommend additional antibiotics at this time. He was reassured there is no redness or streaking noted at the ulcer site. It is okay to wash the ulcer site with regular soap and water prior to dressing changes. I recommend work-up for his veins and arteries of the lower extremity to determine if there is underlying etiology for these recurrent ulcers. An order for noninvasive arterial studies as well as venous Doppler with reflux evaluation was provided previously. It is noted he did have these test performed within the past 2 to 5 years. His last noninvasive vascular studies on file from 2016 which demonstrated pretty normal blood flow. He had tried and biphasic waveforms at the ankle level. Right LIO of 1.26, left LIO of 1.41, right digital index of 1 and left digital index of 1.06. It is also noted that he has had several cardiac procedures in which the leg veins were harvested for use. To follow-up with Dr. Egan with vascular surgery for his blood clot status as well as his venous insufficiency status. I recommend nutritional supplementation to optimize healing and a prescription for Lorenzo or Premier protein supplementation [id number] was recommended. His work-up and medical documentation from Dr. Feliciano will be requested for continuity of care. This was reviewed. To return to the wound healing center in 1 week or call sooner if any questions or concerns. I did answer all his questions today and explained his etiology, treatment plan, and anticipated healing and management course.
[2019-02-10 11:46] VITALS: BP 131/71; PULSE 76; RESP 22; TEMP 36.2; BMI 34.7
--- NOTE | 2019-02-10 12:10 | PN.PCM_ITS ---
(1) Malnutrition Status: Chronic Current Visit: Yes Code(s): E46 - Unspecified protein- calorie malnutrition (2) Delayed wound healing Status: Chronic Current Visit: Yes Code(s): T14.8XXD - Other injury of unspecified body region, subsequent encounter (3) Bilateral leg edema Status: Chronic Current Visit: Yes Code(s): R60.0 - Localized edema (4) Cellulitis of right leg Status: Resolved Current Visit: Yes Code(s): L03.115 - Cellulitis of right lower limb (5) Venous insufficiency Status: Chronic Current Visit: Yes Code(s): I87.2 - Venous insufficiency (chronic) (peripheral) Comment: left (6) Ulcer of right lower extremity with fat layer exposed Status: Chronic Current Visit: Yes Code(s): L97.912 - Non-pressure chronic ulcer of unspecified part of right lower leg with fat layer exposed (7) Deep venous thrombosis Status: Acute Current Visit: Yes Qualifiers: DVT location: lower extremity Laterality: left Code(s): I82.409 - Acute embolism and thrombosis of unspecified deep veins of unspecified lower extremity Type of Wound Date of Service: 02/10/19 Chief Complaint: ulcer left lower leg History of Wound: 83-year-old male who comes to the wound center was referred by Dr. Feliciano for right leg ulcer. He has been performing wound care this past week as advised with improvement. He is taking antibiotics as prescribed. He denies odor or redness of the leg at this time. He denies fever, chill, nausea, vomiting, loss of appetite. H He obtained his venous reflux exam to evaluate for venous insufficiency. At the time the exam there was evidence of acute blood clot of the left lower extremity lower and proximal aspects. It is been confirmed that he is on Eliquis and additional blood thinners were not recommended. He also followed up with his primary care physician about this and will further discuss the need for placement of a [place] filter with vascular specialist, Dr. Egan. He denies shortness of breath or chest pain at this time. He is with his today. Progress of Wound: Improving - Physical Exam Vital Signs Temp Pulse Resp BP 97.2 F L 76 22 H 131/71 H 02/10/19 11:46 02/10/19 11:46 02/10/19 11:46 02/10/19 11:46 General: Alert, Oriented x3, Cooperative, No apparent distress Extremities: No cyanosis, Capillary Refill Less than 3 Seconds, No Calf Tenderness - Negative Masoud and Farrell sign right lower extremity, Edema - Right lower extremity and left lower extremity, Peripheral Pulses Normal, - - No fluctuance or bogginess on palpation in the right lower extremity compartments remain soft to palpate Skin: Ulcer/ Wound - No purulence, erythema, streaking, odor, infection. There is significant peripheral epithelialization noted to the ulcer site and this is healing well. There is no deep tissue exposure or maceration noted. His peripheral skin is atrophic, hairless and hyperpigmented. Wound Measurements and Assessment WC - Nurse 1 - General Ulcer Measurement Start: 02/03/19 11:30 Freq: Status: Active Protocol: Activity Type Activity Date Activity User E-Sign Co-Sign Detail Recorded Client Recorded Date Recorded By Document 02/10/19 11:46 DL [id number] 02/10/19 11:57 DL 02/10/19 11:46 Wound Center Nurse 1 [Ulcer Assessment] #4 RLE -Current Size (cm) - Length 0.1 -Current Size (cm) - Width 0.1 -Current Size (cm) - Depth 0.1 -Total Square Cm 0.01 -Photo Taken No -Exudate Amt None Present -Wound Margin Flat & Intact -Granulation Amt Large (67-100%) -Granulation Quality [place] -Necrosis Amt Small (1-33%) -Necrotic Tissue Type Adherent Slough -Structure Exposed N/A -Texture (Renata-wound Skin Appearance) Scarring -Moisture (Renata-wound Skin Appearance Dry/Scaly ) -Color (Renata-wound Skin Appearance) Hemosiderin Staining -Temperature (Renata-wound Skin No Abnormality Appearance) (Pt Warm) -Tenderness on Palpation (Renata-wound No Skin Appearance) -Ulcer Cleansing Wound Cleanser -Foul Odor after Cleansing No -Anesthetic Used 4% Lidocaine Solution [Edema Assessment] -Right Calf (cm) 43 -Right Ankle (cm) 22.6 WC - Nurse 2 - General Ulcer CM Notes Start: 02/03/19 11:30 Freq: Status: Active Protocol: Activity Type Activity Date Activity User E-Sign Co-Sign Detail Recorded Client Recorded Date Recorded By Document 02/10/19 12:00 [email or web address] [id number] 02/10/19 12:02 02/10/19 12:00 Wound Center Nurse 2 [Procedure/Treatment] #4 RLE -Correct Patient No -Correct Side, Site, Position No -Correct Procedure No -Procedure Performed No -Post Debridement Size (cm) - Length 0.1 -Post Debridement Size (cm) - Width 0.1 -Post Debridement Size (cm) - Depth 0.1 -Total Square Cm 0.01 -Wound/Ulcer Outcome Not Healed [See Physician Procedure note for Specifics] Pain Scale: 0-10 Numeric [Pain] -Is Patient Pain Free? Yes Musculoskeletal: No Tenderness to Palpation of Joints or Extremities, Muscle Wasting Neurological: Sensory exam intact to light touch and pain Psych/Mental Status: Normal Affect, Appropriate Debridement Note Post-Debridement Measurements/Treatment - Nurse 2 - General Ulcer CM Notes Start: 02/03/19 11:30 Freq: Status: Active Protocol: Activity Type Activity Date Activity User E-Sign Co-Sign Detail Recorded Client Recorded Date Recorded By Document 02/03/19 12:22 [id number] 02/03/19 12:26 Document 02/10/19 12:00 [id number] 02/10/19 12:02 02/03/19 02/10/19 12:22 12:00 Wound Center Nurse 2 #4 RLE -Time 12:22 -Correct Patient Yes No -Correct Side, Site, Position Yes No -Correct Procedure Yes No -Procedure Performed Yes No -Type of Procedure Debridement -Clinical Debridement Subcutaneous -Post Debridement Size (cm) - Length 6.5 0.1 -Post Debridement Size (cm) - Width 4.5 0.1 -Post Debridement Size (cm) - Depth 0.1 0.1 -Total Square Cm 29.25 0.01 -Wound/Ulcer Outcome Not Healed Not Healed -Ulcer Cleansing Rinsed/ Irrigated with Saline -Foul Odor after Cleansing No -Bioengineered Tissue No -Bleeding Controlled with Pressure -Offloading No -Treatment Response Procedure Tolerated Well Pain Scale: 0-10 Numeric Is Patient Pain Free? Yes Yes Wound debrided: anterior leg Laterality: Right Type of Debridement: Excisional debridement Anesthesia Used: 5% Lidocaine Gel Depth: in the subcutaneous layer Percentage of wound debrided: 100 Instrument Used: #15 blade Tissue Removed: fibrous, devitalized subcutaneous, biofilm,slough Severity: Fat Layer Exposed Amount of bleeding with debridement: Mild Bleeding Controlled with: Pressure Patient tolerated procedure well No debridement was completed today Assessment/Plan Active Problems (Last Reviewed 01/20/19 @ 08:16 by Inga Gracia) Venous insufficiency (Chronic) left Bilateral leg edema (Chronic) Malnutrition (Chronic) Delayed wound healing (Chronic) Ulcer of right lower extremity with fat layer exposed (Chronic) Deep venous thrombosis (Acute) Assessment: ulcer of right anterior lower leg with fat layer exposed. venous insufficiency left lower extremity. Acute deep venous thrombosis left lower and proximal limb; on Eliquis. Leg edema lower extremity. History of recurrent ulcers with delayed healing. Cellulitis with treatment initiation of oral antibiotics resolving Plan: I reviewed and discussed his case. I reviewed his diagnostic data from November 27, 2018 including CBC and CMP without gross abnormalities. Subcutaneous excisional debridement was performed as noted in the clinical panel. Recommend changing the dressing daily with Adaptic and hydrogel and I recommend Tubigrip compression dressing to the right lower extremity. To elevate limb at rest. To avoid idle standing or sitting. It is noted his primary care physician started him on antibiotics and he does have some recently resolved signs of local inflammation. The refill was noted and he was advised to complete this course. I reviewed and discussed his cultures which demonstrated abnormal growth. It is okay to wash the ulcer site with regular soap and water prior to dressing changes. I recommend work-up for his veins and arteries of the lower extremity to determine if there is underlying etiology for these recurrent ulcers. An order for noninvasive arterial studies as well as venous Doppler with reflux evaluation was provided previously. I His last noninvasive vascular studies on file from 2016 which demonstrated pretty normal blood flow. He had tried and biphasic waveforms at the ankle level. Right LIO of 1.26, left LIO of 1.41, right digital index of 1 and left digital index of 1.06. It is also noted that he has had several cardiac procedures in which the leg veins were harvested for use. His venous Doppler exam insufficiency in the left lower extremity only. To follow-up with Dr. Egan with vascular surgery for his blood clot status as well as his venous insufficiency status. To continue Eliquis as advised. I recommend nutritional supplementation to optimize healing and a prescription for [place] or Premier protein supplementation [id number] was recommended. His primary care physician's recent notes were reviewed. To return to the wound healing center in 1 week or call sooner if any questions or concerns. I did answer all his questions today and explained his etiology, treatment plan, and anticipated healing and management course.
== END 2019-02-27 23:59 ==
LOC: WC 11:15
PROVIDERS: Family Provider Family Medicine; PCP Family Medicine; Referring Provider Podiatrist; Visit Provider Podiatrist
DX: I87.2 Venous insufficiency (chronic) (peripheral) (principal); L97.812 Non-pressure chronic ulcer of other part of right lower leg with fat layer exposed; Z86.718 Personal history of other venous thrombosis and embolism; R60.0 Localized edema
CPT/HCPCS: 99213; G0463

== ENCOUNTER → 2019-02-11 20:25 | Outpatient (CLI) | payer MEDICARE, SELFPAY ==
[2019-01-20 09:56] VITALS: BMI 34.7
[2019-02-10 11:46] VITALS: BMI 34.7
== END ==
PROVIDERS: Family Provider Family Medicine; PCP Family Medicine; Referring Provider Internal Medicine Critical Care Medicine; Visit Provider Internal Medicine Critical Care Medicine
DX: G47.33 Obstructive sleep apnea (adult) (pediatric) (principal); I27.21 Secondary pulmonary arterial hypertension
CPT/HCPCS: 95811

== ENCOUNTER → 2019-02-15 15:57 | Outpatient (CLI) | payer MEDICARE, SELFPAY ==
[2019-02-10 11:46] VITALS: BMI 34.7
[2019-02-15 17:44] LABS: Absolute Lymphocyte Count 2.38 X10^3/uL (0.83-4.51); Absolute Neutrophil Count 2.8 X10^3/uL (2.0-7.7); Basophil# 0.03 X10^3/uL; Basophil% 0.5 % (0-1); Eosinophil# 0.32 X10^3/uL; Eosinophils% 5.3 % (0-5); Hematocrit 35.8 % (40-54); Hemoglobin 11.2 g/dL (13.0-16.5); Lymphocyte # 2.38 X10^3/ul (4.0); Lymphocyte % 39.7 % (19-41); Mean Corp Hgb Conc 31.3 g/dL (32-36); Mean Corpuscular Hgb 27.6 pg (27.0-32.0); Mean Corpuscular Volume 88.2 fL (80-94); Mean Platelet Vol. 10.6 fl (6.2-12.0); Monocyte# 0.47 X10^3/uL; Monocyte% 7.8 % (0-10); NRBC Flagged by Analyzer 0 % (0-5); Neutrophil # 2.78 X10^3/uL (2.7-7.7); Neutrophil % 46.5 % (47-70); Platelet Count 251 K/mm3 (150-450); RBC Distribution Width CV 17.2 % (11.6-14.6); RBC Distribution Width SD 55.5 fl (35.1-43.9); Red Blood Count 4.06 M/mm3 (4.6-6.2)
[2019-02-15 17:47] LABS: Anion Gap 6 (5-15); BUN 15 mg/dL (7-18); BUN/Creat Ratio 12.3 RATIO (10-20); Calcium,Total 9.2 mg/dL (8.5-10.1); Chloride 108 mmol/L (98-107); Creatinine, Serum 1.22 mg/dL (0.70-1.30); EST Glomerular Filtration Rate 60 mL/min (>60); Est Glom Filt Rate - Afr Amer 73 mL/min (>60); Glucose 89 mg/dL (74-106); Sodium Level 139 mmol/L (136-145)
== END ==
PROVIDERS: Family Provider Family Medicine; PCP Family Medicine; Visit Provider Family Medicine
DX: D64.9 Anemia, unspecified (principal); I10 Essential (primary) hypertension
CPT/HCPCS: 36415; 80048; 85025

== ENCOUNTER → 2019-02-23 12:03 | Outpatient (CLI) | payer MEDICARE, SELFPAY ==
[2019-01-20 08:12] VITALS: BMI 35.4
[2019-02-10 11:46] VITALS: BMI 34.7
[2019-02-23 12:56] VITALS: PULSE 64; PULSE 75; PULSE 77; PULSE 79; PULSE 85; O2SAT 91; O2SAT 93; O2SAT 94; O2SAT 95; O2SAT 96; O2SAT 97
--- NOTE | 2019-02-23 14:31 | PCM.PSN.6M ---
PSN 6 Minute Walk Test - 6 Minute Walk Test 6 Minute Walk Test: 6 Minute Walk Test PSN:6-Minute Walk Test Start: 02/23/19 12:55 Freq: Status: Active Protocol: RESP.6MINW Document 02/23/19 12:56 GOODDario (Rec: 02/23/19 12:59 JLDario [id number]) 6 Minute Walk Test Date Performed 02/23/19 Time Performed 12:30 Height 5 ft 7 in Weight: 99.79 kg Weight in Pounds 220.[address]: Kevin Winslow Assistive device used: Walker Pre-test Oxygen Delivery Method Room Air Pulse Ox (%) 95 Pulse Rate (60-100 beats/min) 64 Dyspnea Demetrius Scale (0-10) 0 Exertion Demetrius Scale (6-20) 6 1st minute Oxygen Delivery Method Room Air Pulse Ox (%) 91 Pulse Rate (60-100 beats/min) 77 2nd minute Oxygen Delivery Method Room Air Pulse Ox (%) 94 Pulse Rate (60-100 beats/min) 79 3rd minute Oxygen Delivery Method Room Air Pulse Ox (%) 97 Pulse Rate (60-100 beats/min) 77 4th minute Oxygen Delivery Method Room Air Pulse Ox (%) 96 Pulse Rate (60-100 beats/min) 85 5th minute Oxygen Delivery Method Room Air Pulse Ox (%) 96 Pulse Rate (60-100 beats/min) 85 6th minute Oxygen Delivery Method Room Air Pulse Ox (%) 93 Pulse Rate (60-100 beats/min) 75 Dyspnea Demetrius Scale (0-10) 0 Exertion Demetrius Scale (6-20) 14 Post-test Oxygen Delivery Method Room Air Pulse Ox (%) 96 Pulse Rate (60-100 beats/min) 75 Full Laps Walked 4 Partial Lap, Number of Tiles Walked 0 Total Distance Walked (ft) 236 - Interpretation Interpretation: The patient was able to ambulate 236 feet over the course of 6 minutes with the assistance of a walker and no breaks. Patient did experience significant desaturation as low as 91%, but no tachycardia was noted. These findings are consistent with a musculoskeletal limitation to exercise tolerance. - Recommendations Recommendations: No supplemental oxygen is indicated at this time.
== END ==
PROVIDERS: Family Provider Family Medicine; PCP Family Medicine; Referring Provider Internal Medicine Critical Care Medicine; Visit Provider Internal Medicine Critical Care Medicine
DX: I27.21 Secondary pulmonary arterial hypertension (principal)
CPT/HCPCS: 94618

== ENCOUNTER 2019-03-03 11:24 | Outpatient (RCR) | payer MEDICARE, SELFPAY ==
[2019-02-28 01:06] VITALS: BP 131/71; PULSE 76; RESP 22; TEMP 36.2
[2019-03-03 13:08] VITALS: BP 118/60; PULSE 66; RESP 18; TEMP 36.3; BMI 34.7
--- NOTE | 2019-03-03 16:59 | PCM.WC.PN ---
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 Code(s): I82.402 - Acute embolism and thrombosis of unspecified deep veins of left lower extremity (2) Ulcer of right lower extremity with fat layer exposed Status: Resolved Code(s): L97.912 - Non-pressure chronic ulcer of unspecified part of right lower leg with fat layer exposed (3) Bilateral leg edema Status: Chronic Code(s): R60.0 - Localized edema (4) Venous insufficiency Status: Chronic Code(s): I87.2 - Venous insufficiency (chronic) (peripheral) Comment: left Type of Wound Date of Service: 03/03/19 Chief Complaint: Right leg ulcer History of Wound: 83-year-old male who comes to the wound center referred by Dr. Feliciano for right leg ulcer. He is continue with compression therapy and a comprehensive wound healing plan. He denies drainage this past week and thinks the ulcer site is healed. Progress of Wound: healed - Physical Exam Vital Signs Temp Pulse Resp BP 97.4 F L 66 18 118/60 03/03/19 13:08 03/03/19 13:08 03/03/19 13:08 03/03/19 13:08 General: Alert, Oriented x3, Cooperative, No apparent distress HEENT: Atraumatic Extremities: No cyanosis, Capillary Refill Less than 3 Seconds, No Calf Tenderness, Diminished Peripheral Pulses, Edema Skin: Ulcer/ Wound - Full epithelialization is noted and there is no ulcer. The skin is atrophic and hairless. Wound Measurements and Assessment WC - Nurse 1 - General Ulcer Measurement Start: 03/03/19 13:08 Freq: Status: Active Protocol: Activity Type Activity Date Activity User E-Sign Co-Sign Detail Recorded Client Recorded Date Recorded By Document 03/03/19 13:08 DL [id number] 03/03/19 13:12 DL 03/03/19 13:08 Wound Center Nurse 1 [Ulcer Assessment] #4 RLE -Current Size (cm) - Length 0 -Current Size (cm) - Width 0 -Current Size (cm) - Depth 0 -Total Square Cm 0 -Photo Taken Yes -Exudate Amt None Present -Wound Margin Flat & Intact -Granulation Amt Large (67-100%) -Granulation Quality [place] -Necrosis Amt None Present (0 %) -Structure Exposed N/A -Texture (Renata-wound Skin Appearance) Scarring -Moisture (Renata-wound Skin Appearance Dry/Scaly ) -Color (Renata-wound Skin Appearance) Hemosiderin Staining -Temperature (Renata-wound Skin No Abnormality Appearance) (Pt Warm) -Tenderness on Palpation (Renata-wound No Skin Appearance) -Ulcer Cleansing Wound Cleanser -Foul Odor after Cleansing No WC - Nurse 2 - General Ulcer CM Notes Start: 03/03/19 13:08 Freq: Status: Active Protocol: Activity Type Activity Date Activity User E-Sign Co-Sign Detail Recorded Client Recorded Date Recorded By Document 03/03/19 13:29 [id number] 03/03/19 13:30 03/03/19 13:29 Wound Center Nurse 2 [Procedure/Treatment] -Correct Patient No -Correct Side, Site, Position No -Correct Procedure No -Procedure Performed No -Post Debridement Size (cm) - Length 0 -Post Debridement Size (cm) - Width 0 -Post Debridement Size (cm) - Depth 0 -Total Square Cm 0 -Wound/Ulcer Outcome Healed- Epithelialized [See Physician Procedure note for Specifics] Pain Scale: 0-10 Numeric [Pain] -Is Patient Pain Free? Yes Musculoskeletal: No Tenderness to Palpation of Joints or Extremities, Muscle Wasting Psych/Mental Status: Normal Affect, Appropriate Debridement Note Post-Debridement Measurements/Treatment WC - Nurse 2 - General Ulcer CM Notes Start: 03/03/19 13:08 Freq: Status: Active Protocol: Activity Type Activity Date Activity User E-Sign Co-Sign Detail Recorded Client Recorded Date Recorded By Document 03/03/19 13:29 [id number] 03/03/19 13:30 03/03/19 13:29 Wound Center Nurse 2 #4 RLE -Correct Patient No -Correct Side, Site, Position No -Correct Procedure No -Procedure Performed No -Post Debridement Size (cm) - Length 0 -Post Debridement Size (cm) - Width 0 -Post Debridement Size (cm) - Depth 0 -Total Square Cm 0 -Wound/Ulcer Outcome Healed- Epithelialized Pain Scale: 0-10 Numeric Is Patient Pain Free? Yes Wound debrided: leg Laterality: Right No debridement was completed today - healed today Assessment/Plan Assessment: right anterior lower leg has healed. Venous insufficiency left lower extremity. Acute deep venous thrombosis left lower and proximal limb. Leg edema. History of recurrent ulcers with delayed healing. Cellulitis with treatment initiation of oral antibiotics has resolved Plan: I reviewed and discussed his case. His ulcer site has healed and he was advised to discontinue nutritional supplementation and dressing care. To monitor this friable site as the skin remodels over the next couple months. His chronic lower extremity edema is noted and he was advised to continue with compression therapy to the right lower extremity. He has no local or systemic signs of illness at this time and I do not recommend antibiotic therapy. I recommend work-up for his veins and arteries of the lower extremity to determine if there is underlying etiology for these recurrent ulcers. An order for noninvasive arterial studies as well as venous Doppler with reflux evaluation was provided previously. It is noted he did have these test performed within the past 2 to 5 years. His prior arterial study from several years ago did not demonstrate any lack of perfusion. His last noninvasive vascular studies on file from 2016 which demonstrated pretty normal blood flow. He had biphasic waveforms at the ankle level. Right LIO of 1.26, left LIO of 1.41, right digital index of 1 and left digital index of 1.06. It is also noted that he has had several cardiac procedures in which the leg veins were harvested for use. To follow-up with Dr. Egan with vascular surgery for his blood clot status as well as his venous insufficiency status. On 01/30/2019 he had a venous Doppler performed which did not demonstrate any venous incompetence to the right lower extremity. There was incompetence to 1 of the perforating veins on the left lower extremity and with the a forementioned blood clot noted. He is discharged from the wound healing center at this time and will follow-up as needed.
== END 2019-03-30 23:59 ==
LOC: WC 11:24
PROVIDERS: Family Provider Family Medicine; PCP Family Medicine; Referring Provider Podiatrist; Visit Provider Podiatrist
DX: Z09 Encounter for follow-up examination after completed treatment for conditions other than malignant neoplasm (principal); I87.2 Venous insufficiency (chronic) (peripheral); R60.0 Localized edema; Z86.718 Personal history of other venous thrombosis and embolism
CPT/HCPCS: 99213; G0463

== ENCOUNTER → 2019-04-07 13:15 | Outpatient (CLI) | payer MEDICARE, SELFPAY ==
--- NOTE | 2019-04-07 13:19 | VDLE_ITS ---
Reason For Study: Chronic thrombosis Procedure LEFT Exam performed in department. GSV is normal. Compared to 01/28/19. CFV is compressible, spontaneous, phasic, A preliminary report was called and/or faxed competent, and demonstrates normal to Julisa. augmentation. FV is compressible, spontaneous, phasic, competent and demonstrates normal augmentation. POP V is compressible, spontaneous, phasic, competent and demonstrates normal augmentation. T/P Trunk is compressible. PTV is compressible. LT PerV is compressible. Interpretation Summary 1. Left leg no DVT. Ordering Physician: Rubén Egan Referring Physician: Calderon Ramirez Performed By: Concha Fraire RVT
== END ==
PROVIDERS: Family Provider Family Medicine; PCP Family Medicine; Referring Provider Surgery Vascular Surgery; Visit Provider Surgery Vascular Surgery
DX: Z86.718 Personal history of other venous thrombosis and embolism (principal)
CPT/HCPCS: 93971

== ENCOUNTER → 2019-04-16 14:47 | Outpatient (CLI) | payer MEDICARE, OTHER, SELFPAY ==
[2018-11-19 10:43] VITALS: BMI 32.5
[2019-04-08 13:08] VITALS: BMI 32.5
--- NOTE | 2019-04-16 14:48 | ECHOCS_ITS ---
Reason For Study: AFIB/FLUTTER Procedure This was a 2D Doppler, Color Flow transthoracic echocardiogram. The study was technically difficult. Exam performed in department. Left Ventricle Normal left ventricle. Concentric left ventricular hypertrophy. Left ventricular systolic function is normal. The estimated ejection fraction is 60% %. No evidence for diastolic dysfunction. No regional wall motion abnormalities noted. Right Ventricle Normal systolic function. Atria The left atrium is mildly enlarged. Mitral Valve The mitral valve is structurally normal. No prolapse or stenosis seen. Trivial mitral valve insufficiency. Tricuspid Valve Normal tricuspid valve. Mild (1+) tricuspid valve insufficiency. Pulmonary artery systolic pressure is 57 mmHg. Mild pulmonary hypertension. Aortic Valve Normal aortic valve. No aortic valve insufficiency. Pulmonic Valve The pulmonic valve is not well visualized. Medication 22 gauge I.V. with prn adaptor inserted into right arm. Diluted definity 4.0ml given slow IV push to enhance endocardial definition. MMode/2D Measurements & Calculations LVIDd: 3.4 cm IVSd: 1.3 cm Ao root diam: 3.5 cm LVIDs: 1.9 cm LVPWd: 1.3 cm RVDd: 3.2 cm FS: 44.6 % LAV(MOD-sp4): 85.8 ml LA A4 area: 24.9 cm2 LA dimension(2D): 4.2 cm RA A4 area: 22.8 cm2 Time Measurements MV dec time: 0.15 sec Doppler Measurements & Calculations MV E max mayank: 92.5 cm/sec Lat Peak E' Mayank: 8.4 cm/sec Med Peak E' Mayank: 5.4 cm/sec MV A max mayank: 60.9 cm/sec E/E' lat: 11.0 E/E' med: 17.1 MV E/A: 1.5 Ao V2 max: 121.0 cm/sec LV V1 max: 93.5 cm/sec PA V2 max: 74.9 cm/sec Ao max P.9 mmHg LV V1 max P.5 mmHg TR max mayank: 342.8 cm/sec TR max P.0 mmHg Interpretation Summary Normal left ventricle. Concentric left ventricular hypertrophy. Left ventricular systolic function is normal. The estimated ejection fraction is 60% %. No evidence for diastolic dysfunction. The left atrium is mildly enlarged. Trivial mitral valve insufficiency. Mild (1+) tricuspid valve insufficiency. Pulmonary artery systolic pressure is 57 mmHg. No aortic valve insufficiency. Mild pulmonary hypertension. Ordering Physician: Fito Alcala Referring Physician: Calderon Ramirez Performed By: Roberta Arguelles, BRADLEY, RVT
== END ==
PROVIDERS: Family Provider Family Medicine; PCP Family Medicine; Referring Provider Internal Medicine Cardiovascular Disease; Visit Provider Internal Medicine Cardiovascular Disease
DX: I27.20 Pulmonary hypertension, unspecified (principal); R06.09 Other forms of dyspnea
CPT/HCPCS: 93306; Q9957; A4216; C8929

== ENCOUNTER → 2019-05-14 14:06 | Outpatient (CLI) | payer MEDICARE, OTHER, SELFPAY ==
[2019-04-20 14:13] VITALS: BMI 32.5
--- NOTE | 2019-05-14 14:10 | RAD_ITS ---
STUDY: X-RAY - LEFT HUMERUS REASON FOR EXAM: Male, 83 years old. Pain in left arm from a fall TECHNIQUE: 3 view(s) of the humerus. COMPARISON: None. FINDINGS: There is diffuse demineralization of the humerus. There is visualized orthopedic tack within the left humeral head. There is bony osteopenia and degenerative change. There is visualized under expansion of the left lung. RAD/Humerus min 2 Views IMPRESSION: Degenerative change. No visualized acute fracture. Electronically Signed: Dejah Miller MD at 17:59 EST Tel , Service support ,
--- NOTE | 2019-05-14 14:10 | RAD_ITS ---
STUDY: X-RAY - LEFT SHOULDER REASON FOR EXAM: Male, 83 years old. pain in left arm from a fall TECHNIQUE: 2 view(s) of the shoulder. COMPARISON: September 08, 2018 FINDINGS: There is mild degenerative arthrosis of the glenohumeral articulation. Normal acromioclavicular joint. Normal acromion. Postoperative changes in the left humerus with a small tack in the left humeral head. There is degenerative change of the glenohumeral joint. The bones are osteopenic. The soft tissue structures are unremarkable. Normal visualized pulmonary apex. RAD/Shoulder min 2 Views IMPRESSION: Arthrosis. Postoperative change. Electronically Signed: Dejah Miller MD at 18:09 EST Tel , Service support ,
== END ==
PROVIDERS: PCP Family Medicine; Referring Provider Family Medicine; Visit Provider Family Medicine
DX: M19.012 Primary osteoarthritis, left shoulder (principal)
CPT/HCPCS: 73030; 73060

== ENCOUNTER 2019-06-06 06:58 | Emergency (ER) | payer MEDICARE, OTHER, SELFPAY ==
[2019-05-25 14:01] VITALS: BMI 32.5
[2019-06-06 06:59] VITALS: BP 167/81; PULSE 70; RESP 18; TEMP 36.6; O2SAT 98; BMI 33.7
--- NOTE | 2019-06-06 07:20 | RAD_ITS ---
STUDY: X-RAY - PELVIS AND RIGHT HIP REASON FOR EXAM: Male, 83 years old. Fall this am, right hip pain TECHNIQUE: 4 views of the pelvis and hip. COMPARISON: None. FINDINGS: There is a non-specific bowel gas pattern. Normal visualized soft tissue structures. Degenerative lumbar changes. Normal bilateral iliac wings, sacroiliac joints and visualized sacrum. Normal bilateral superior and inferior pubic rami. Normal pubic symphysis. Normal bilateral ischial tuberosities. Right hip prosthesis is noted in satisfactory alignment. No imaging evidence of dislocation or acute bone injury. RAD/HIP, UNI W/ Pelvis 2-3 Views IMPRESSION: No acute bone injury of the pelvis and hip. Electronically Signed: Bakari Faust DO at 8:44 EDT Tel [phone], Service support ,
--- NOTE | 2019-06-06 07:35 | RAD_ITS ---
STUDY: X-RAY - RIGHT KNEE REASON FOR EXAM: Male, 83 years old. Fall this am, knee abrasion and pain TECHNIQUE: 4 view(s) of the knee. COMPARISON: None. FINDINGS: Normal visualized distal femur. Normal visualized proximal tibia and fibula. Normal proximal tibiofibular articulation. Degenerative spurring and mild narrowing at the medial femorotibial compartment. Degenerative spurring and mild narrowing at the lateral femorotibial compartment. Degenerative spurring and narrowing at the patellofemoral articulation. The soft tissue structures are unremarkable. RAD/Knee 4 or More Views IMPRESSION: Degenerative changes of the knee. Electronically Signed: Bakari Faust DO at 8:32 EDT Tel [phone], Service support ,
--- NOTE | 2019-06-06 07:45 | ED.DCSUM_ITS ---
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 He basically reports he was tangled up in some of his bedding he still slid out of the bed landed on the right side as he try to reposition himself and get up he believes he skinned his right knee his chief complaint is the chronic right hip pain and new right knee pain he did not hit his head he was not ill in any way he is able to function at home with help of aids walking devices lift chairs Past Medical History - Allergies and Home Meds Allergies/Adverse Reactions: Allergies diazepam [From Valium] Allergy (Intermediate, Verified 06/06/19 06:58) Other HALLUCINATIONS morphine Allergy (Intermediate, Verified 06/06/19 06:58) Other TWITCHES Primary Care Physician: Calderon Ramirez MD [Primary Care Provider] - Past Medical History: - - As above and to include Surgical History: angioplasty - Stent., coronary bypass surgery, total hip arthroplasty, - - Hiatal hernia surgery. Smoking Status: Never smoker - Family History Maternal Family History: Family History (Last Reviewed 05/25/19 @ 16:57 by LUCIA Parisi) Father No problems noted. Mother Cancer Brother Throat cancer Brother COPD (chronic obstructive pulmonary disease) Brother No problems noted. Sister COPD (chronic obstructive pulmonary disease) Heart disease Sister COPD (chronic obstructive pulmonary disease) Family History: Reports: No pertinent history Paternal Family History: Family History (Last Reviewed 05/25/19 @ 16:57 by LUCIA Parisi) Father No problems noted. Mother Cancer Brother Throat cancer Brother COPD (chronic obstructive pulmonary disease) Brother No problems noted. Sister COPD (chronic obstructive pulmonary disease) Heart disease Sister COPD (chronic obstructive pulmonary disease) Family History: Reports: No pertinent history Review of Systems General: Denies: Chills, Fever, Sweats Eyes: Denies: Visual changes - bilaterally, Diplopia ENT: Denies: Rhinorrhea, Sore throat Cardiovascular: Denies: Chest pain, Palpitations Respiratory: Denies: Dyspnea, Cough, Dyspnea on exertion Gastrointestinal: Denies: Abdominal pain, Nausea, Vomiting, Diarrhea, Melena, Hematochezia Genitourinary: Denies: Dysuria, Hematuria, Frequency Musculoskeletal: Reports: Extremity Pain, - - He has multiple areas of pain chronically the only new issue is he has an abrasion and some very mild right kn ee pain. Denies: Back pain Skin: Denies: Rash, Wounds Neurological: Denies: Headache, Weakness, Numbness Physical Exam Vital Signs/Narrative: Vital Signs Temp Pulse Resp BP Pulse Ox 06/06/19 06:59 97.9 F 70 18 167/81 H 98 General: Well nourished, Well developed, No Acute Distress Head: Normocephalic, Atraumatic Eyes: Perrl, EOMI ENT: Moist mucous membranes, No rhinorrhea Neck: Supple, Nontender Cardiovascular: Regular rate, Regular rhythm, No murmurs Respiratory: No distress, CTA bilaterally, Chest nontender Abdomen: Soft, Nontender, Nondistended, Normal bowel sounds Back: Nontender, Normal Inspection Extremities: Nontender - He has chronic pain to the right hip he has no back pain, he is able to move the left leg, he is has decreased range of motion to the left shoulder related to chronic arthritis he has decreased range of motion to the right shoulder related to arthritis he basically is at his functional musculoskeletal neurologic and general medical baseline he has an abrasion about 2 cm to the right knee and some mild pain associate with the abrasion, No edema, - - He has edema to both lower extremities is chronic, he has decreased range of motion to the right leg he is able to extend the knee on the right, Skin: Normal color, No rash Neurological: Alert, Oriented x3, Cranial nerves II-XII grossly intact, Normal Strength, Normal Sensation Psychological: Normal affect, Normal Mood Diagnostic/Tx/Re-eval - Medical Decision Making Given all the above x-rays pain management The patient's x-rays are unremarkable DJD no fracture, explained the above to the patient the he is received wound care to the extremity he is not sure about his tetanus will update if necessary, he is comfort discharge home as he has walking devices lift chair etc. and a follow-up with his outpatient providers, Final impression is fall with right knee injury Home stable ED Disposition - Plan for ED Patient: Diagnosis: Right knee injury Instructions: KNEE PAIN, Meniscus Injury (Possible) Referrals: Calderon Ramirez MD [Primary Care Provider] -
[2019-06-06] MEDS: HYDROcodone Bitartrate/Apap 5/325 Tablet PO (07:53)
[2019-06-06] MEDS: Diphth,Pertuss(Acell),Tet Vac 0.5 ML Vial IM (09:14)
[2019-06-06 09:15] VITALS: BP 135/75; PULSE 61; RESP 18; O2SAT 97
== END 2019-06-06 09:18 | disposition home or self-care (01) ==
LOC: ED 07:36
PROVIDERS: Emergency Provider Emergency Medicine; PCP Family Medicine
DX: S80.211A Abrasion, right knee, initial encounter (principal); W06.XXXA Fall from bed, initial encounter; Y93.9 Activity, unspecified; Y92.9 Unspecified place or not applicable; I69.341 Monoplegia of lower limb following cerebral infarction affecting right dominant side; Z95.1 Presence of aortocoronary bypass graft; Z95.5 Presence of coronary angioplasty implant and graft; Z79.82 Long term (current) use of aspirin; Z79.01 Long term (current) use of anticoagulants
CPT/HCPCS: 73502; 73564; 90471; 90715; 99284

== ENCOUNTER → 2019-08-11 15:10 | Outpatient (CLI) | payer MEDICARE, OTHER, SELFPAY ==
--- NOTE | 2019-08-11 15:14 | VDLE_ITS ---
Reason For Study: Pain RIGHT LEFT GSV is normal. GSV is normal. CFV is compressible, spontaneous, phasic, CFV is compressible, spontaneous, phasic, competent and demonstrates normal competent, and demonstrates normal augmentation. augmentation. FV is compressible, spontaneous, phasic, FV is compressible, spontaneous, phasic, competent and demonstrates normal competent and demonstrates normal augmentation. augmentation. POP V is compressible, spontaneous, phasic, POP V is compressible, spontaneous, phasic, competent and demonstrates normal competent and demonstrates normal augmentation. augmentation. T/P Trunk is compressible. T/P Trunk is compressible. PTV is compressible. PTV is compressible. RT PerV is compressible. LT PerV is compressible. Unable to compress FV mid-distal, visualized Unable to compress FV mid-distal, visualized with color only. with color only. Procedure Exam performed in department. A preliminary report was called and/or faxed to [facility]. Interpretation Summary Deep veins of the lower extremities are bilaterally patent and compressible segmentally. There is no evidence of deep vein thrombosis on either side. Valvular competence appears intact within the proximal deep venous systems bilaterally. The great saphenous veins appear bilaterally patent and compressible segmentally. The mid- and distal femoral veins were evaluated by color flow only on both sides. Ordering Physician: Calderon Ramirez Referring Physician: Calderon Ramirez Performed By: Concha Fraire RVT
== END ==
PROVIDERS: PCP Family Medicine; Visit Provider Family Medicine
DX: M79.604 Pain in right leg (principal); M79.605 Pain in left leg
CPT/HCPCS: 93970

== ENCOUNTER 2019-08-31 15:25 | Emergency (ER) | payer MEDICARE, OTHER, SELFPAY ==
[2019-08-31] VITALS (7 sets, daily range): BP systolic 139–158; BP diastolic 64–76; PULSE 59–69; RESP 18–23; TEMP 36.9; O2SAT 93–100; BMI 34.9
[2019-08-31 15:50] LABS: Absolute Neutrophil Count 2.9 X10^3/uL (2.0-7.7); Basophil# 0.03 X10^3/uL; Basophil% 0.4 % (0-1); Eosinophil# 0.28 X10^3/uL; Eosinophils% 3.9 % (0-5); Hematocrit 37.1 % (40-54); Lymphocyte % 44.1 % (19-41); Mean Corp Hgb Conc 32.3 g/dL (32-36); Mean Corpuscular Hgb 28.8 pg (27.0-32.0); Mean Corpuscular Volume 89.2 fL (80-94); Mean Platelet Vol. 11.1 fl (6.2-12.0); NRBC Flagged by Analyzer 0 % (0-5); Neutrophil # 2.93 X10^3/uL (2.7-7.7); Neutrophil % 40.5 % (47-70); Platelet Count 235 K/mm3 (150-450); RBC Distribution Width CV 17.9 % (11.6-14.6); RBC Distribution Width SD 57.6 fl (35.1-43.9); Red Blood Count 4.16 M/mm3 (4.6-6.2); White Blood Count 7.3 K/mm3 (4.4-11.0)
--- NOTE | 2019-08-31 15:50 | RAD_ITS ---
STUDY: X-RAY CHEST REASON FOR EXAM: Male, 83 years old. CHEST PAIN TECHNIQUE: Single AP portable view of the chest. COMPARISON: 10/15/2018. FINDINGS: Low lung volumes. The lungs are clear and expanded. There is no demonstrated pleural abnormality. Normal size heart. Sternotomy wires are present. Normal mediastinum and donnie. Normal visualized pulmonary arteries. There is atherosclerotic calcification of the aortic arch. Mild degenerative changes of the thoracic spine and right shoulder. Soft tissues and bony structures are otherwise unremarkable. RAD/Chest 1 View (Portable) IMPRESSION: No acute findings. No acute findings. Electronically Signed: Martha Sanchez MD at 16:07 EDT Tel , Service support ,
[2019-08-31] MEDS: Aspirin 81 MG TAB.CHEW 324 MG PO (16:00)
--- NOTE | 2019-08-31 16:01 | ED.VIS.GEN ---
History of Present Illness Chief Complaint: Chest Pain Informant: Patient, Family Onset: Today Context: Sudden Onset Timing: Continuous Quality: Thumb pain sensation Location: Mid chest Current Severity: Mild Maximum Severity: Severe Worsened by: Nothing Relieved by: Significantly diminished after 2 nitro Associated Symptoms: Diaphoresis per visiting nurse. Narrative: Patient is an 83-year-old male with history of coronary disease, hypertension, congestive heart failure and peripheral vascular disease who presents with midsternal thumping sensation that occurred this morning. He states he was getting dressed. He did take nitro with significant improvement and possible total resolution. He took an additional nitroglycerin 5 minutes later. The pain is minimal at this time. He states he did not wish to come to the emergency department. The visiting nurse called the ambulance. Patient reports persistent edema of lower extremities. The edema is not worse. He denies fever, chills night sweats. He denies visual, ocular auditory symptoms. He denies dysphonia or dysphasia. He denies neck pain or neck stiffness. He denies shortness of breath. He denies nausea. He denies black or maroon stool. He has no known exposure to COVID. Prior similar symptoms: Yes - He does not recall because Recent Illness/Hospitalization: No - Past Medical History (1) KARAN (obstructive sleep apnea) Status: Acute (2) History of coronary artery stent placement Status: Resolved Comment: PTCA/EASTON Anomalous LCX off of RCA with a 2.25 x 24 Promus Synergy and PTCA/EASTON of distal RCA in stent plaque protrusion with possible non occlusive thrombus w/ 3.5 x 32 Promus Synergy05/19/18 PTCA/EASTON distal RCA with a 3.5 x 38 Promus Syergy and EASTON mid RCA with a 4.0 x 32 Promus Synergy Stent 05/13/18 EASTON-Prox LAD w/ 3.5 mm x 20 mm Promus Stent 08/27/12 [id number] & proximal RCA 06/21/2002 (3) 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 (4) Pulmonary embolism with acute cor pulmonale Status: Chronic (5) Acute on chronic diastolic (congestive) heart failure Status: Chronic (6) Secondary pulmonary arterial hypertension Status: Chronic (7) Essential (primary) hypertension Status: Chronic (8) Hyperlipidemia Status: Chronic (9) Other specified peripheral vascular diseases Status: Suspected (10) Venous insufficiency Status: Chronic Comment: left (11) Bilateral leg edema Status: Chronic Past Medical History - Allergies and Home Meds Allergies/Adverse Reactions: Allergies diazepam [From Valium] Allergy (Intermediate, Verified 08/31/19 15:26) Other HALLUCINATIONS morphine Allergy (Intermediate, Verified 08/31/19 15:26) Other TWITCHES Primary Care Physician: Calderon Ramirez MD [Primary Care Provider] - Surgical History: angioplasty - Stent., coronary bypass surgery, total hip arthroplasty, - - Hiatal hernia surgery. Lives: Spouse/ Significant Other Smoking Status: Former smoker - Quit smoking at the age of 16 Alcohol: None Drugs: None - Family History Maternal Family History: Family History (Last Reviewed 05/25/19 @ 16:57 by LUCIA Parisi) Father No problems noted. Mother Cancer Brother Throat cancer Brother COPD (chronic obstructive pulmonary disease) Brother No problems noted. Sister COPD (chronic obstructive pulmonary disease) Heart disease Sister COPD (chronic obstructive pulmonary disease) Family History: Reports: No pertinent history Paternal Family History: Family History (Last Reviewed 05/25/19 @ 16:57 by ELVA ParisiC) Father No problems noted. Mother Cancer Brother Throat cancer Brother COPD (chronic obstructive pulmonary disease) Brother No problems noted. Sister COPD (chronic obstructive pulmonary disease) Heart disease Sister COPD (chronic obstructive pulmonary disease) Family History: Reports: No pertinent history Review of Systems General: Denies: Chills, Fever, Malaise Eyes: Denies: Visual changes - bilaterally, Blurred Vision - bilaterally ENT: Denies: Rhinorrhea, Sore throat Cardiovascular: Reports: Chest pain Respiratory: Reports: Dyspnea on exertion. Denies: Dyspnea, Cough, Sputum, Orthopnea, Paroxysmal nocturnal dyspnea, -, - Gastrointestinal: Denies: Abdominal pain, Nausea, Vomiting, Diarrhea, Melena, Hematochezia Genitourinary: Denies: Dysuria, Hematuria, Frequency Musculoskeletal: Reports: Swelling. Denies: Myalgias, Arthralgias, Neck pain, Back pain, Extremity Pain, -, - Skin: Denies: Rash, Wounds Neurological: Reports: Headache - Patient reports headache after taking nitroglycerin., Weakness Endocrine: Denies: Polyuria, Polydipsia Hematologic: Reports: Easy bruising - Patient is on Eliquis Allergy: Denies: Uticaria, Swelling of the mouth Physical Exam Vital Signs/Narrative: Vital Signs Temp Pulse Resp BP Pulse Ox 08/31/19 15:48 97 08/31/19 15:41 66 23 H 141/76 H 96 08/31/19 15:27 98.5 F 69 18 158/68 H 93 General: Well nourished, Well developed, No Acute Distress Head: Normocephalic, Atraumatic Eyes: Negative for: Perrl, EOMI ENT: Moist mucous membranes, No rhinorrhea, - - Trachea is midline. There is no inspiratory expiratory stridor. Neck: Supple, Nontender, No lymphadenopathy, No JVD Cardiovascular: Regular rate, Regular rhythm, No murmurs, Normal S1, Normal S2 Respiratory: No distress, CTA bilaterally, Chest nontender Abdomen: Soft, Nontender, Nondistended, Normal bowel sounds Back: Nontender, Normal Inspection. Negative for: CVA tenderness Extremities: Tenderness, Edema - Pitting edema feet and both legs for plus millimeters. Negative for: Nontender, No edema, Calf Tenderness Skin: Normal color, No rash, No Trauma. Negative for: Cyanosis, Diaphoresis, Jaundice Neurological: Alert, Oriented x3, Cranial nerves II-XII grossly intact, Normal Strength, Normal Sensation. Negative for: Normal Gait Psychological: Depressed Diagnostic/Tx/Re-eval Chest X-Ray - ED: 1 View, Read by ED Physician, - - Single view portable chest x-ray is suboptimal. The x-ray is slightly rotated. Instrument volume is limited. The cardiac silhouette is unremarkable. Borderline cardiomegaly. There is no evidence of infiltrate, congestive heart failure, pleural effusion or pneumothorax. Osseous structures appear normal. The x-ray was interpreted by me at 1600. Impressions Chest X-Ray 08/31/19 15:50 IMPRESSION: No acute findings. No acute findings. Electronically Signed: Martha Sanchez MD at 16:07 EDT Tel , Service support , 08/31/19 15:50 Chest 1 View (Portable) [RAD] Stat Laboratory Results 08/31/19 08/31/19 08/31/19 15:30 15:30 15:30 WBC 7.3 RBC 4.16 L Hgb 12.0 L Hct 37.1 L MCV 89.2 MCH 28.8 MCHC 32.3 RDW Std Deviation 57.6 H RDW Coeff of Karen 17.9 H Plt Count 235 MPV 11.1 Immature Gran % (Auto) 0.100 Neut % (Auto) 40.5 L Lymph % (Auto) 44.1 H [place] % (Auto) 11.0 H Eos % (Auto) 3.9 Baso % (Auto) 0.4 Absolute Neuts (auto) 2.9 Absolute Lymphs (auto) 3.20 Nucleated RBC % 0 Sodium 138 Potassium 5.0 Chloride 105 Carbon Dioxide 25.0 Anion Gap 8 BUN 19 H Creatinine 1.26 Estim Creat Clear Calc 42.26 Est GFR (MDRD) Af Amer 70 Est GFR (MDRD) Non-Af 58 L BUN/Creatinine Ratio 15.1 Glucose 91 Calcium 9.0 Troponin I 0.016 B-Natriuretic Peptide 116.1 H CBC unremarkable. Differential reveals lymphocytosis. H&H 12.0 37.1 which is patient's baseline. Basic metabolic panel is unremarkable. Troponin is 0.016. BNP is 116.1. These are unremarkable. 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 Fito Alcala, was paged. Case was discussed with Dr. Fito Alcala. He informed me that when Eliquis was discontinued for past cardiac catheterization patient had a pulmonary embolus. He is reluctant to discontinue his Eliquis for cardiac catheterization. He recommended 3-hour delta troponin. EKG G at 3 hours is unchanged. Troponin increased to 0.041. Dr. Fito Alcala was made aware of results for repeat/3-hour EKG and troponin, Awaiting callback. - Rhythm Strip Rhythm Strip: Sinus Rhythm Rate: 71 Ectopy: None - Medical Decision Making With history of coronary disease multiple stents and initially relieved with nitro concerned this may represent coronary disease versus noncardiac etiology. Patient does have history of pulmonary embolus. History is not consistent with pulmonary most and patient is on Eliquis. He states he is compliant. GI etiology i.e. GERD, gastritis, peptic ulcer disease, biliary disease. Pneumothorax is a consideration as well. Cardiac work-up was initiated which included an EKG, chest x-ray and appropriate blood work. Patient received Tylenol for his headache and aspirin. Plan per discussion with Dr. Fito Alcala is Imdur twice daily and outpatient follow-up ED Disposition - Plan for ED Patient: Disposition: Home or Assisted Living Diagnosis: Angina at rest Instructions: ED Chest Pain Angina Stable Prescriptions: Isosorbide Mononitrate [Imdur] 60 mg PO BID.TCU #60 tab Prescription Printed Referrals: Calderon Ramirez MD [Primary Care Provider] - Additional Instructions: Increase Imdur from once a day to twice a day.
[2019-08-31] MEDS: Acetaminophen 325 MG Tablet 650 MG PO (16:03)
[2019-08-31 16:08] LABS: BNP,B-Type NATRIURETIC PEPTIDE 116.1 pg/mL (0-100)
[2019-08-31 16:12] LABS: Anion Gap 8 (5-15); BUN 19 mg/dL (7-18); BUN/Creat Ratio 15.1 RATIO (10-20); Chloride 105 mmol/L (98-107); Creatinine, Serum 1.26 mg/dL (0.70-1.30); EST Glomerular Filtration Rate 58 mL/min (>60); Est Glom Filt Rate - Afr Amer 70 mL/min (>60); Estimated Creatinine Clearance 42.26 ml/min; Glucose 91 mg/dL (74-106); Sodium Level 138 mmol/L (136-145)
[2019-08-31] MEDS: Isosorbide Mononitrate 60 MG Tablet PO (19:53)
== END 2019-08-31 20:10 | disposition home or self-care (01) ==
PROVIDERS: Emergency Medicine; Emergency Provider Emergency Medicine; PCP Family Medicine
DX: I25.118 Atherosclerotic heart disease of native coronary artery with other forms of angina pectoris (principal); I11.0 Hypertensive heart disease with heart failure; I50.33 Acute on chronic diastolic (congestive) heart failure; I27.21 Secondary pulmonary arterial hypertension; I87.2 Venous insufficiency (chronic) (peripheral); I73.9 Peripheral vascular disease, unspecified; E78.5 Hyperlipidemia, unspecified; Z95.5 Presence of coronary angioplasty implant and graft; Z86.711 Personal history of pulmonary embolism; Z79.01 Long term (current) use of anticoagulants; Z79.82 Long term (current) use of aspirin; Z79.899 Other long term (current) drug therapy; Z87.891 Personal history of nicotine dependence
CPT/HCPCS: 71045; 80048; 83880; 84484; 85025; 93005; 99285; A4216

== ENCOUNTER 2019-10-25 13:18 | Emergency (ER) | payer MEDICARE, OTHER, SELFPAY ==
[2019-10-08 16:10] VITALS: BMI 34.4
[2019-10-25 13:19] VITALS: BP 139/61; PULSE 59; RESP 16; TEMP 36.7; O2SAT 98; BMI 33.2
--- NOTE | 2019-10-25 14:06 | RAD_ITS ---
STUDY: X-RAY - LEFT SHOULDER REASON FOR EXAM: Male, 84 years old. FALL 3 DAYS AGO, LEFT SHOULDER AND FEMUR/HIP PAIN TECHNIQUE: Two view(s) of the shoulder. COMPARISON: None. FINDINGS: There is moderate degenerative arthrosis of the glenohumeral articulation. There is been resection of the distal portion of the left clavicle. Decreased distance of the humeral head and acromion in keeping with rotator cuff disease. A metallic clip is seen at that site most likely secondary to prior rotator cuff surgery. There is an enthesopathic erosion of the humeral head. The soft tissue structures are unremarkable. Normal visualized pulmonary apex. RAD/Shoulder min 2 Views IMPRESSION: Status post resection of the distal portion of the left clavicle and evidence of prior rotator cuff surgery. Decrease distance between the humeral head and acromion. Electronically Signed: Monico Sherman, at 14:58 EDT , Service support ,
--- NOTE | 2019-10-25 14:06 | RAD_ITS ---
STUDY: X-RAY - PELVIS REASON FOR EXAM: Male, 84 years old. FALL 3 DAYS AGO, LEFT SHOULDER AND FEMUR/HIP PAIN TECHNIQUE: One view of the pelvis was obtained. COMPARISON: None. FINDINGS: There is a non-specific bowel gas pattern. Normal visualized soft tissue structures. There is narrowing with cortical sclerosis and osteophyte formation of the sacroiliac joint consistent with degenerative osteoarthritic changes. Normal visualized bilateral superior and inferior pubic rami. Normal pubic symphysis. Normal ischial tuberosities. The patient is status post right hip replacement. Normal visualized left femoral head. Normal left acetabulum. There is moderate articular joint space narrowing of the left hip. Disc space narrowing and spondylosis of the lower lumbar spine. RAD/Pelvis 1 or 2 Views IMPRESSION: Moderate degree of joint space narrowing of the left hip joint. Electronically Signed: Monico Sherman, at 14:59 EDT , Service support ,
--- NOTE | 2019-10-25 14:06 | RAD_ITS ---
STUDY: X-RAY - LEFT FEMUR REASON FOR STUDY: Male, 84 years old. FALL 3 DAYS AGO, LEFT SHOULDER AND FEMUR/HIP PAIN TECHNIQUE: Four view(s) of the femur. COMPARISON: None. FINDINGS: Normal visualized femur. The patient is status post total knee replacement. Small joint effusion. RAD/Femur Min 2 Views IMPRESSION: Status post total knee replacement. Small joint effusion. Electronically Signed: Monico Sherman, at 14:58 EDT , Service support ,
--- NOTE | 2019-10-25 14:07 | ED.VIS.GEN ---
History of Present Illness Chief Complaint: Fall Narrative: 84-year-old male states that he was trying to pull the metal ring for a ceiling fan and tripped falling backwards onto his left hip and buttocks. He did not hit his head. He states he landed on the printer. This was a couple of days ago. He was told to come to the ER then but did not. He states that he can still get up and walk with his walker. Past Medical History - Allergies and Home Meds Allergies/Adverse Reactions: Allergies diazepam [From Valium] Allergy (Intermediate, Verified 10/25/19 13:19) Other HALLUCINATIONS morphine Allergy (Intermediate, Verified 10/25/19 13:19) Other TWITCHES Primary Care Physician: Calderon Ramirez MD [Primary Care Provider] - Surgical History: angioplasty - Stent., coronary bypass surgery, total hip arthroplasty, - - Hiatal hernia surgery. Smoking Status: Former smoker - Family History Maternal Family History: Family History (Last Reviewed 09/28/19 @ 14:16 by Amaya Holt) Father No problems noted. Mother Cancer Brother Throat cancer Brother COPD (chronic obstructive pulmonary disease) Brother No problems noted. Sister COPD (chronic obstructive pulmonary disease) Heart disease Sister COPD (chronic obstructive pulmonary disease) Family History: Reports: No pertinent history Paternal Family History: Family History (Last Reviewed 09/28/19 @ 14:16 by Amaya Holt) Father No problems noted. Mother Cancer Brother Throat cancer Brother COPD (chronic obstructive pulmonary disease) Brother No problems noted. Sister COPD (chronic obstructive pulmonary disease) Heart disease Sister COPD (chronic obstructive pulmonary disease) Family History: Reports: No pertinent history Review of Systems General: Denies: Chills, Fever, Sweats Eyes: Denies: Visual changes - bilaterally, Diplopia ENT: Denies: Rhinorrhea, Sore throat Cardiovascular: Denies: Chest pain, Palpitations Respiratory: Denies: Dyspnea, Cough, Dyspnea on exertion Gastrointestinal: Denies: Abdominal pain, Nausea, Vomiting, Diarrhea, Melena, Hematochezia Genitourinary: Denies: Dysuria, Hematuria, Frequency Musculoskeletal: Reports: Extremity Pain - Hip pain, left thigh pain, left shoulder pain. Denies: Back pain Skin: Denies: Rash, Wounds Neurological: Denies: Headache, Weakness, Numbness Physical Exam Vital Signs/Narrative: Vital Signs Temp Pulse Resp BP Pulse Ox 10/25/19 13:19 98.1 F 59 L 16 139/61 H 98 General: Well nourished, Well developed, No Acute Distress Head: Normocephalic, Atraumatic Eyes: Perrl, EOMI ENT: Moist mucous membranes, No rhinorrhea Neck: Supple, Nontender Cardiovascular: Regular rate Respiratory: No distress, CTA bilaterally, Chest nontender Back: Nontender, Normal Inspection Extremities: - - Is to palpation over the left hip and thigh. Negative logroll. No deformity but there is also tenderness to palpation over the left anterior shoulder. There is no obvious deformity. Patient has a limited range of motion but states this is chronic. Skin: Normal color, No rash Neurological: Alert, Oriented x3, Cranial nerves II-XII grossly intact, Normal Strength, Normal Sensation Psychological: Normal affect, Normal Mood Diagnostic/Tx/Re-eval Clinical Impression(s) from Imaging Studies Femur X-Ray 10/25/19 14:06 IMPRESSION: Status post total knee replacement. Small joint effusion. Electronically Signed: Monico Sherman, at 14:58 EDT , Service support , Pelvis X-Ray 10/25/19 14:06 IMPRESSION: Moderate degree of joint space narrowing of the left hip joint. Electronically Signed: Monico Sherman, at 14:59 EDT , Service support , Shoulder X-Ray 10/25/19 14:06 IMPRESSION: Status post resection of the distal portion of the left clavicle and evidence of prior rotator cuff surgery. Decrease distance between the humeral head and acromion. Electronically Signed: Monico Sherman at 14:58 EDT , Service support , - Medical Decision Making Patient was seen and evaluated on arrival for a fall 3 days ago. He states he is already been ambulatory and has been using a walker which makes it unlikely that he is sustained a major injury to his left shoulder or his hip however he wishes to have x-rays of these areas because his primary sent him in. These were performed and were negative. Patient was counseled to follow-up with his PCP who was going to refer him to an orthopedic surgeon. Patient is amenable to this plan is discharged home in stable condition. Impression: 1 mechanical fall 2. Left hip contusion 3. Left shoulder strain ED Disposition - Plan for ED Patient: Disposition: Home or Assisted Living Instructions: ED Mechanical Fall, ED CONTUSION Hip, ED Prevention Fall Referrals: Calderon Ramirez MD [Primary Care Provider] -
[2019-10-25 15:39] VITALS: BP 129/69; PULSE 59; RESP 18
== END 2019-10-25 15:56 | disposition home or self-care (01) ==
PROVIDERS: Emergency Provider Student in an Organized Health Care Education/Training Program; PCP Family Medicine
DX: S46.912A Strain of unspecified muscle, fascia and tendon at shoulder and upper arm level, left arm, initial encounter (principal); S70.02XA Contusion of left hip, initial encounter; W01.0XXA Fall on same level from slipping, tripping and stumbling without subsequent striking against object, initial encounter; Y93.89 Activity, other specified; Y92.9 Unspecified place or not applicable; Z87.891 Personal history of nicotine dependence; Z95.1 Presence of aortocoronary bypass graft
CPT/HCPCS: 72170; 73030; 73552; 99282

== ENCOUNTER 2020-02-23 15:00 | Outpatient (RCR) | payer MEDICARE, OTHER, SELFPAY ==
[2020-02-02 13:22] VITALS: BP 109/57; PULSE 67; RESP 16; TEMP 36.8; BMI 34.4
--- NOTE | 2020-02-02 13:45 | WC ---
PT WILL BRING MED LIST TO NEXT VISIT. ALLERGIES VERIFIED.
--- NOTE | 2020-02-02 22:37 | PN.PCM_ITS ---
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 Left leg blister History of Wound: 84-year-old male who comes to the wound center return for bilateral blisters and concern of reulceration. He is continue with compression therapy. He relates the blisters started within the past 3 weeks he denies injury. He does have fluctuating edema. He does have pain. He denies current drainage. He is with his today. Progress of Wound: Healed left. Stable right, new - Physical Exam Vital Signs Temp Pulse Resp BP 98.2 F 67 16 109/57 L 02/02/20 13:22 02/02/20 13:22 02/02/20 13:22 02/02/20 13:22 General: Alert, Oriented x3, Cooperative, No apparent distress Extremities: No cyanosis, Capillary Refill Less than 3 Seconds, No Calf Tenderness, Diminished Peripheral Pulses, Edema Skin: Ulcer/ Wound - No purulence, erythema, streaking, odor, infection. Dried skin from prior drained blister to left leg was debrided and there is full epithelialization noted. The right leg dried skin was debrided and there is pale granular superficial ulcer. His skin is atrophic, hairless, and hyperpigmented BLE Wound Measurements and Assessment WC - Nurse 1 - General Ulcer Measurement Start: 02/02/20 13:19 Freq: Status: Active Protocol: Activity Type Activity Date Activity User E-Sign Co-Sign Detail Recorded Client Recorded Date Recorded By Document 02/02/20 13:22 [facility] [id number] 02/02/20 13:42 [facility] 02/02/20 13:22 Wound Center Nurse 1 [Ulcer Assessment] #6- R BENOIT -Combined with other wound No -Current Size (cm) - Length 0.7 -Current Size (cm) - Width 0.5 -Current Size (cm) - Depth 0.1 -Total Square Cm 0.35 -Date of Last Picture (Recall this 02/02/20 field) -Photo Taken Yes -Epithelialization None Present -Tunneling No -Undermining/Tunneling No -Circular Undermining No -Exudate Amt None Present -Wound Margin Distinct, Outline Attached -Granulation Amt None Present (0 %) -Slough/Fibrin Yes -Necrosis Amt Large (67-100%) -Necrotic Tissue Type Eschar -Texture (Renata-wound Skin Appearance) Assessed, Scarring -Moisture (Renata-wound Skin Appearance Assessed,Dry/ ) Scaly -Color (Renata-wound Skin Appearance) Assessed -Temperature (Renata-wound Skin No Abnormality Appearance) (Pt Warm) -Tenderness on Palpation (Renata-wound No Skin Appearance) -Ulcer Cleansing SOAPY WATER -Foul Odor after Cleansing No -Anesthetic Used 4% Lidocaine Solution #5- R SUPERIOR BENOIT -Combined with other wound No -Current Size (cm) - Length 1.3 -Current Size (cm) - Width 2.6 -Current Size (cm) - Depth 0.1 -Total Square Cm 3.38 -Date of Last Picture (Recall this 02/02/20 field) -Photo Taken Yes -Epithelialization None Present -Tunneling No -Undermining/Tunneling No -Circular Undermining No -Exudate Amt None Present -Wound Margin Distinct, Outline Attached -Granulation Amt None Present (0 %) -Slough/Fibrin Yes -Necrosis Amt Large (67-100%) -Necrotic Tissue Type Adherent Slough -Texture (Renata-wound Skin Appearance) Assessed, Scarring -Moisture (Renata-wound Skin Appearance Assessed,Dry/ ) Scaly -Color (Renata-wound Skin Appearance) Assessed -Temperature (Renata-wound Skin No Abnormality Appearance) (Pt Warm) -Tenderness on Palpation (Renata-wound No Skin Appearance) -Ulcer Cleansing SOAPY WATER -Foul Odor after Cleansing No -Anesthetic Used 4% Lidocaine Solution [Edema Assessment] -Lower Limb Edema Present Yes -Right Calf (cm) 39.1 -Right Ankle (cm) 22.5 -Left Calf (cm) 38.7 -Left Ankle (cm) 23.4 WC - Nurse 2 - General Ulcer CM Notes Start: 02/02/20 13:19 Freq: Status: Active Protocol: Activity Type Activity Date Activity User E-Sign Co-Sign Detail Recorded Client Recorded Date Recorded By Document 02/02/20 14:07 [id number] 02/02/20 14:09 02/02/20 14:07 Wound Center Nurse 2 [Procedure/Treatment] #6- R BENOIT -Time 14:08 -Correct Patient Yes -Correct Side, Site, Position Yes -Correct Procedure Yes -Procedure Performed Yes -Type of Procedure Debridement -Clinical Debridement Subcutaneous -Tissue Removed Subcutaneous -Post Debridement (cm) - Length 0.9 -Post Debridement (cm) - Width 2.6 -Post Debridement (cm) - Depth 0.1 -Total Square (Post) (cm) 2.34 -Area of Debridement (cm) - Length 0.9 -Area of Debridement (cm) - Width 2.6 -Total Square (Area) (cm) 2.34 -Tunneling No -Undermining/Tunneling No -Circular Undermining No -Wound/Ulcer Outcome Not Healed -Ulcer Cleansing Rinsed/ Irrigated with Saline -Foul Odor after Cleansing No -Bioengineered Tissue No -Bleeding Controlled with Pressure -Offloading No -Treatment Response Procedure Tolerated Well -Debridement - Subq, 1st 20sq cm Yes [See Physician Procedure note for Specifics] Pain Scale: 0-10 Numeric [Pain] -Is Patient Pain Free? Yes - Nurse 3 - General Ulcer D/C NN Start: 02/02/20 13:19 Freq: Status: Active Protocol: Activity Type Activity Date Activity User E-Sign Co-Sign Detail Recorded Client Recorded Date Recorded By Document 02/02/20 14:24 [facility] [id number] 02/02/20 14:25 [facility] 02/02/20 14:24 Wound Care Nurse 3 [Wound Dressing] #6- R BENOIT -Ulcer Cleansing Rinsed/ Irrigated with Saline -Foul Odor after Cleansing No -Primary Dressing Applied C Hydrogel ($), NonAdherent Contact Layer -Primary Dressing Covered/Secured Dry Gauze & with Roll Gauze, Secured with Tape [Compression Applied] Right -Tubular Bandage Single Layer -Size of Tubigrip Used Size F -Size F ($) 1 Left -Tubular Bandage Single Layer -Size of Tubigrip Used Size F -Size F ($) 1 [Post Procedure Tolerated] -Treatment Response Procedure Tolerated Well Pain Scale: 0-10 Numeric [Pain] -Is Patient Pain Free? Yes - Visit Discharge [Visit Discharge Information] -Discharge Condition Stable -Ambulatory Status Wheelchair -Transportation [place] Musculoskeletal: No Tenderness to Palpation of Joints or Extremities, Muscle Wasting Neurological: Sensory exam intact to light touch and pain Psych/Mental Status: Normal Affect, Appropriate Debridement Note Post-Debridement Measurements/Treatment - Nurse 2 - General Ulcer CM Notes Start: 02/02/20 13:19 Freq: Status: Active Protocol: Activity Type Activity Date Activity User E-Sign Co-Sign Detail Recorded Client Recorded Date Recorded By Document 02/02/20 14:07 [id number] 02/02/20 14:09 02/02/20 14:07 Wound Center Nurse 2 #6- R BENOIT -Time 14:08 -Correct Patient Yes -Correct Side, Site, Position Yes -Correct Procedure Yes -Procedure Performed Yes -Type of Procedure Debridement -Clinical Debridement Subcutaneous -Tissue Removed Subcutaneous -Post Debridement (cm) - Length 0.9 -Post Debridement (cm) - Width 2.6 -Post Debridement (cm) - Depth 0.1 -Total Square (Post) (cm) 2.34 -Area of Debridement (cm) - Length 0.9 -Area of Debridement (cm) - Width 2.6 -Total Square (Area) (cm) 2.34 -Tunneling No -Undermining/Tunneling No -Circular Undermining No -Wound/Ulcer Outcome Not Healed -Ulcer Cleansing Rinsed/ Irrigated with Saline -Foul Odor after Cleansing No -Bioengineered Tissue No -Bleeding Controlled with Pressure -Offloading No -Treatment Response Procedure Tolerated Well -Debridement - Subq, 1st 20sq cm Yes Pain Scale: 0-10 Numeric Is Patient Pain Free? Yes - Nurse 3 - General Ulcer D/C NN Start: 02/02/20 13:19 Freq: Status: Active Protocol: Activity Type Activity Date Activity User E-Sign Co-Sign Detail Recorded Client Recorded Date Recorded By Document 02/02/20 14:24 [facility] [id number] 02/02/20 14:25 [facility] 02/02/20 14:24 Wound Care Nurse 3 #6- R BENOIT -Ulcer Cleansing Rinsed/ Irrigated with Saline -Foul Odor after Cleansing No -Primary Dressing Applied C Hydrogel ($), NonAdherent Contact Layer -Primary Dressing Covered/Secured with Dry Gauze & Roll Gauze, Secured with Tape Right -Tubular Bandage Single Layer -Size of Tubigrip Used Size F -Size F ($) 1 Left -Tubular Bandage Single Layer -Size of Tubigrip Used Size F -Size F ($) 1 Treatment Response Procedure Tolerated Well Pain Scale: 0-10 Numeric Is Patient Pain Free? Yes WC - Visit Discharge Discharge Condition Stable Ambulatory Status Wheelchair Transportation [place] Wound debrided: anterior leg Laterality: Right Type of Debridement: Excisional debridement Anesthesia Used: 5% Lidocaine Gel Depth: in the subcutaneous layer Percentage of wound debrided: 100 Instrument Used: #15 blade Tissue Removed: fibrous, devitalized subcutaneous, biofilm, slough Severity: Fat Layer Exposed Amount of bleeding with debridement: Mild Bleeding Controlled with: Pressure Patient tolerated procedure well Assessment/Plan Active Problems (Last Reviewed 12/20/19 @ 14:36 by Miri Amado NP, [facility]-C) Ulcer of right lower extremity with fat layer exposed (Acute) Bilateral leg edema (Chronic) Assessment: right anterior lower leg stable, no infection. Healed left leg ulcer. Venous insufficiency left lower extremity. 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 Leg edema bilateral lower extremities. History of recurrent ulcers with delayed healing Plan: I reviewed and discussed his case. His ulcer site has healed on the left lower extremity and is identified as a new site on the right leg. To monitor this friable site as the skin remodels over the next couple months. His chronic lower extremity edema is noted and he was advised to continue with compression therapy to the right lower extremity. He has no local or systemic signs of illness at this time and I do not recommend antibiotic therapy. An order for noninvasive arterial studies as well as venous Doppler with reflux evaluation was provided previously during his last wound at the wound healing center. He has suspected perfusion. He has a history of deep venous thrombosis and some venous insufficiency noted. He had prior biphasic waveforms at the ankle level. Right LIO of 1.26, left LIO of 1.41, right digital index of 1 and left digital index of 1.06. It is also noted that he has had several cardiac procedures in which the leg veins were harvested for use. There was incompetence to the legs. To follow-up at the wound healing center 1 week.
[2020-02-09 13:54] VITALS: BP 112/59; PULSE 68; RESP 16; TEMP 36.7; BMI 34.4
[2020-02-09 14:34] VITALS: BP 114/60
--- NOTE | 2020-02-09 22:22 | PN.PCM_ITS ---
(1) Ulcer of right lower extremity with fat layer exposed Status: Acute Code(s): L97.912 - Non-pressure chronic ulcer of unspecified part of right lower leg with fat layer exposed (2) Bilateral leg edema Status: Chronic Code(s): R60.0 - Localized edema Type of Wound Date of Service: 02/09/20 Chief Complaint: Right leg ulcer History of Wound: 84-year-old male who comes to the wound center return for bilateral blisters and concern of reulceration. He is continue with compression therapy. He has pain to the front of his shins. He denies redness or warmth to his calfs. He has a history of blood clot history and is on chronic Eliquis. He denies shortness of breath or chest pain. He is with his today. Progress of Wound: Stable right - Physical Exam Vital Signs Temp Pulse Resp BP 98.1 F 68 16 114/60 02/09/20 13:54 02/09/20 13:54 02/09/20 13:54 02/09/20 14:34 General: Alert, Oriented x3, Cooperative, No apparent distress Extremities: No cyanosis, Capillary Refill Less than 3 Seconds, No Calf Tenderness, Diminished Peripheral Pulses, Edema, - - Negative Farrell signs bilateral. No warmth or erythema to bilateral legs Skin: Ulcer/ Wound - No purulence, erythema, string, odor, infection. Peripheral epithelialization is noted. Adjacent skin is atrophic, - - Reduce fibrous ulcer base with increased granulation tissue Wound Measurements and Assessment WC - Nurse 1 - General Ulcer Measurement Start: 02/02/20 13:19 Freq: Status: Active Protocol: Activity Type Activity Date Activity User E-Sign Co-Sign Detail Recorded Client Recorded Date Recorded By Document 02/09/20 13:54 [facility] [id number] 02/09/20 14:05 [facility] 02/09/20 13:54 Wound Center Nurse 1 [Ulcer Assessment] #5- R BENOIT -Combined with other wound No -Current Size (cm) - Length 0.7 -Current Size (cm) - Width 2 -Current Size (cm) - Depth 0.1 -Total Square Cm 1.4 -Photo Taken No -Epithelialization Small 1-33% -Tunneling No -Undermining/Tunneling No -Circular Undermining No -Exudate Amt Medium -Exudate Type Serosanguineous -Wound Margin Distinct, Outline Attached -Granulation Amt Medium (34-66%) -Granulation Quality Red -Slough/Fibrin Yes -Necrosis Amt Medium (34-66%) -Necrotic Tissue Type Adherent Slough -Texture (Renata-wound Skin Appearance) Assessed, Scarring -Moisture (Renata-wound Skin Appearance Assessed,Dry/ ) Scaly -Color (Renata-wound Skin Appearance) Assessed -Temperature (Renata-wound Skin No Abnormality Appearance) (Pt Warm) -Tenderness on Palpation (Renata-wound No Skin Appearance) -Ulcer Cleansing soapy water -Foul Odor after Cleansing No -Anesthetic Used 5% Lidocaine Gel [Edema Assessment] -Lower Limb Edema Present Yes -Right Calf (cm) 40.1 -Right Ankle (cm) 21.7 MARGARITO - Nurse 2 - General Ulcer CM Notes Start: 02/02/20 13:19 Freq: Status: Active Protocol: Activity Type Activity Date Activity User E-Sign Co-Sign Detail Recorded Client Recorded Date Recorded By Document 02/09/20 14:17 SHIVA [id number] 02/09/20 14:22 SHIVA 02/09/20 14:17 Wound Center Nurse 2 [Procedure/Treatment] #5- R BENOIT -Time 14:17 -Correct Patient Yes -Correct Side, Site, Position Yes -Correct Procedure Yes -Procedure Performed Yes -Type of Procedure Debridement -Clinical Debridement Subcutaneous -Tissue Removed Subcutaneous -Post Debridement (cm) - Length 0.9 -Post Debridement (cm) - Width 2.0 -Post Debridement (cm) - Depth 0.1 -Total Square (Post) (cm) 1.80 -Area of Debridement (cm) - Length 0.9 -Area of Debridement (cm) - Width 2.0 -Total Square (Area) (cm) 1.80 -Tunneling No -Undermining/Tunneling No -Circular Undermining No -Wound/Ulcer Outcome Not Healed -Ulcer Cleansing Rinsed/ Irrigated with Saline -Foul Odor after Cleansing No -Bioengineered Tissue No -Bleeding Controlled with Pressure -Offloading No -Treatment Response Procedure Tolerated Well -Debridement - Subq, 1st 20sq cm Yes [See Physician Procedure note for Specifics] Pain Scale: 0-10 Numeric [Pain] -Is Patient Pain Free? Yes MARGARITO - Nurse 3 - General Ulcer D/C NN Start: 02/02/20 13:19 Freq: Status: Active Protocol: Activity Type Activity Date Activity User E-Sign Co-Sign Detail Recorded Client Recorded Date Recorded By Document 02/09/20 14:34 RB [id number] 02/09/20 14:36 RB 02/09/20 14:34 Wound Care Nurse 3 [Wound Dressing] #5- R BENOIT -Ulcer Cleansing Rinsed/ Irrigated with Saline -Primary Dressing Applied NonAdherent Contact Layer -Other Dressing hydrogel -Primary Dressing Covered/Secured Dry Gauze,Dry with Gauze & Roll Gauze,Secured with Tape [Compression Applied] Right -Other pt own tubigrip bilat single layer Left -Other single tubigrip [Post Procedure Tolerated] -Treatment Response Procedure Tolerated Well Vital Signs [Blood Pressure] -Blood Pressure (90/60-120/80) 114/60 -Blood Pressure Mean (mm Hg) 78 -Source Monitor -Position Semi-Fowlers -Blood Pressure Location Left Arm Pain Scale: 0-10 Numeric [Pain] -Is Patient Pain Free? Yes Teaching: Wound Center [Wound Center Education] (Items with an * have Printed Materials Available- Please identify what is given to patient under the Teaching materials given to patient and caregiver Section. Compression Wraps & Stockings -Person Taught Patient -Teaching Method Discussion -Response to teaching Verbalize understanding WC - Visit Discharge [Visit Discharge Information] -Discharge Condition Stable -Ambulatory Status Ambulatory -Transportation Private Auto -Medication Reconcilliation completed No & provided to patient/care provider -Clinical Summary of Care Provided Yes Neurological: Sensory exam intact to light touch and pain Psych/Mental Status: Normal Affect, Appropriate Debridement Note Post-Debridement Measurements/Treatment WC - Nurse 2 - General Ulcer CM Notes Start: 02/02/20 13:19 Freq: Status: Active Protocol: Activity Type Activity Date Activity User E-Sign Co-Sign Detail Recorded Client Recorded Date Recorded By Document 02/02/20 14:07 [id number] 02/02/20 14:09 Document 02/09/20 14:17 [id number] 02/09/20 14:22 02/02/20 02/09/20 14:07 14:17 Wound Center Nurse 2 #5- R BENOIT -Time 14:08 14:17 -Correct Patient Yes Yes -Correct Side, Site, Position Yes Yes -Correct Procedure Yes Yes -Procedure Performed Yes Yes -Type of Procedure Debridement Debridement -Clinical Debridement Subcutaneous Subcutaneous -Tissue Removed Subcutaneous Subcutaneous -Post Debridement (cm) - Length 0.9 0.9 -Post Debridement (cm) - Width 2.6 2.0 -Post Debridement (cm) - Depth 0.1 0.1 -Total Square (Post) (cm) 2.34 1.80 -Area of Debridement (cm) - Length 0.9 0.9 -Area of Debridement (cm) - Width 2.6 2.0 -Total Square (Area) (cm) 2.34 1.80 -Tunneling No No -Undermining/Tunneling No No -Circular Undermining No No -Wound/Ulcer Outcome Not Healed Not Healed -Ulcer Cleansing Rinsed/ Rinsed/ Irrigated with Irrigated with Saline Saline -Foul Odor after Cleansing No No -Bioengineered Tissue No No -Bleeding Controlled with Pressure Pressure -Offloading No No -Treatment Response Procedure Procedure Tolerated Well Tolerated Well -Debridement - Subq, 1st 20sq cm Yes Yes Pain Scale: 0-10 Numeric Is Patient Pain Free? Yes Yes WC - Nurse 3 - General Ulcer D/C NN Start: 02/02/20 13:19 Freq: Status: Active Protocol: Activity Type Activity Date Activity User E-Sign Co-Sign Detail Recorded Client Recorded Date Recorded By Document 02/02/20 14:24 [facility] [id number] 02/02/20 14:25 [facility] Document 02/09/20 14:34 [id number] 02/09/20 14:36 RB 02/02/20 02/09/20 14:24 14:34 Wound Care Nurse 3 #5- R BENOIT -Ulcer Cleansing Rinsed/ Rinsed/ Irrigated with Irrigated with Saline Saline -Foul Odor after Cleansing No -Primary Dressing Applied C Hydrogel ($), NonAdherent NonAdherent Contact Layer Contact Layer -Other Dressing hydrogel -Primary Dressing Covered/Secured with Dry Gauze & Dry Gauze,Dry Roll Gauze, Gauze & Roll Secured with Gauze,Secured Tape with Tape Right -Tubular Bandage Single Layer -Size of Tubigrip Used Size F -Size F ($) 1 -Other pt own tubigrip bilat single layer Left -Tubular Bandage Single Layer -Size of Tubigrip Used Size F -Size F ($) 1 -Other single tubigrip Treatment Response Procedure Procedure Tolerated Well Tolerated Well Vital Signs Blood Pressure (90/60-120/80) 114/60 Blood Pressure Mean (mm Hg) 78 Source Monitor Position Semi-Fowlers Blood Pressure Location Left Arm Pain Scale: 0-10 Numeric Is Patient Pain Free? Yes Yes Teaching: Wound Center Compression Wraps & Stockings -Person Taught Patient -Teaching Method Discussion -Response to teaching Verbalize understanding WC - Visit Discharge Discharge Condition Stable Stable Ambulatory Status Wheelchair Ambulatory Transportation [facility] Auto Medication Reconcilliation completed & No provided to patient/care provider Clinical Summary of Care Provided Yes Wound debrided: anterior leg Laterality: Right Type of Debridement: Excisional debridement Anesthesia Used: 5% Lidocaine Gel Depth: in the subcutaneous layer Percentage of wound debrided: 100 Instrument Used: #15 blade Tissue Removed: fibrous, devitalized subcutaneous tissue, biofilm, slough Severity: Fat Layer Exposed Amount of bleeding with debridement: Mild Bleeding Controlled with: Pressure Patient tolerated procedure well Assessment/Plan Active Problems (Last Reviewed 12/20/19 @ 14:36 by Miri Amado BLOOD BANK ORDER CONTROL CLERK, BLOOD BANK ORDER CONTROL CLERK-C) Ulcer of right lower extremity with fat layer exposed (Acute) Bilateral leg edema (Chronic) Assessment: right anterior lower leg stable, no infection. Venous insufficiency left lower extremity. 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 Leg edema bilateral lower extremities. History of recurrent ulcers with delayed healing Plan: I reviewed and discussed his case. The right leg ulcer site was debrided as noted in the clinical panel. To continue to change the dressing daily with hydrogel and Adaptic. His chronic lower extremity edema is noted and he was advised to continue with compression therapy to the right lower extremity. He has no local or systemic signs of illness at this time and I do not recommend antibiotic therapy. An order for noninvasive arterial studies as well as venous Doppler with reflux evaluation was provided previously during his last wound at the wound healing center. He has suspected perfusion. He has a history of deep venous thrombosis and some venous insufficiency noted. He had prior biphasic waveforms at the ankle level. Right LIO of 1.26, left LIO of 1.41, right digital index of 1 and left digital index of 1.06. It is also noted that he has had several cardiac procedures in which the leg veins were harvested for use. There was incompetence to the legs. To follow-up at the wound healing center 1 week.
[2020-02-23 15:18] VITALS: BP 129/73; PULSE 66; RESP 18; TEMP 36.3; BMI 34.4
[2020-02-23 15:50] VITALS: BP 126/70
--- NOTE | 2020-02-23 20:17 | PCM.WC.PN ---
(1) Ulcer of right lower extremity with fat layer exposed Status: Acute Code(s): L97.912 - Non-pressure chronic ulcer of unspecified part of right lower leg with fat layer exposed (2) Bilateral leg edema Status: Chronic Code(s): R60.0 - Localized edema (3) Other specified peripheral vascular diseases Status: Suspected Code(s): I73.89 - Other specified peripheral vascular diseases (4) Claudication of both lower extremities Status: Chronic Code(s): I73.9 - Peripheral vascular disease, unspecified (5) Right knee pain Status: Chronic Qualifiers: Chronicity: chronic Qualified Code(s): M25.561 - Pain in right knee; G89.29 - Other chronic pain Code(s): M25.561 - Pain in right knee (6) Venous insufficiency Status: Chronic Code(s): I87.2 - Venous insufficiency (chronic) (peripheral) Comment: left Type of Wound Date of Service: 02/23/20 Chief Complaint: Right leg ulcer History of Wound: 84-year-old male who comes to the wound center return for right leg ulcer. He is continue with compression therapy and elevation. He has pain to the front of his shins, right knee, and his entire calf. He describes his discomfort in a vague manner. He denies distinct burning or tingling. his pain radiates from his knee and is aggravated with activity. He has leg cramping with walking short distances but is unable to state the length of walking. He denies redness or warmth to his legs. He has a history of blood clot history and is on care home Eliquis. He denies shortness of breath or chest pain. He is with his today. He plans to follow up with pain management physician, Dr. Buckner next week. He also sees an orthopedic doctor for his knee and does not have a follow up session scheduled. Progress of Wound: improving - Physical Exam Vital Signs Temp Pulse Resp BP 97.4 F L 66 18 126/70 H 02/23/20 15:18 02/23/20 15:18 02/23/20 15:18 02/23/20 15:50 General: Alert, Oriented x3, Cooperative HEENT: Atraumatic Extremities: No cyanosis, Capillary Refill Less than 3 Seconds, Diminished Peripheral Pulses, Edema, Tenderness - Anterior and posterior legs bilateral. Compartments are soft. No bogginess or fluctuance. No warmth redness or streaking. No crepitus on palpation bilateral lower extremities Skin: Ulcer/ Wound - Small skin discontinuity without purulence, erythema, streaking, odor, infection. Significant peripheral epithelialization is noted. His skin is atrophic and hairless Wound Measurements and Assessment - Nurse 1 - General Ulcer Measurement Start: 02/02/20 13:19 Freq: Status: Active Protocol: Activity Type Activity Date Activity User E-Sign Co-Sign Detail Recorded Client Recorded Date Recorded By Document 02/23/20 15:18 [id number] 02/23/20 15:21 02/23/20 15:18 Wound Center Nurse 1 [Ulcer Assessment] #5- R BENOIT -Combined with other wound No -Current Size (cm) - Length 0.1 -Current Size (cm) - Width 0.1 -Current Size (cm) - Depth 0.1 -Total Square Cm 0.01 -Photo Taken No -Epithelialization Large 67-100% -Tunneling No -Undermining/Tunneling No -Circular Undermining No -Exudate Amt None Present -Wound Margin Indistinct, Non -Visible -Granulation Amt None Present (0 %) -Slough/Fibrin Yes -Necrosis Amt Large (67-100%) -Necrotic Tissue Type Adherent Slough -Structure Exposed N/A -Texture (Renata-wound Skin Appearance) Assessed, Localized Edema -Moisture (Renata-wound Skin Appearance Assessed,Dry/ ) Scaly -Color (Renata-wound Skin Appearance) Assessed, Hemosiderin Staining -Temperature (Renata-wound Skin No Abnormality Appearance) (Pt Warm) -Tenderness on Palpation (Renata-wound No Skin Appearance) -Ulcer Cleansing Rinsed/ Irrigated with Saline -Foul Odor after Cleansing No -Anesthetic Used 4% Lidocaine Solution - Nurse 2 - General Ulcer CM Notes Start: 02/02/20 13:19 Freq: Status: Active Protocol: Activity Type Activity Date Activity User E-Sign Co-Sign Detail Recorded Client Recorded Date Recorded By Document 02/23/20 15:21 [id number] 02/23/20 15:22 02/23/20 15:21 Wound Center Nurse 2 [Procedure/Treatment] -Time 15:21 -Correct Patient Yes -Correct Side, Site, Position Yes -Correct Procedure Yes -Procedure Performed Yes -Type of Procedure Debridement -Clinical Debridement Subcutaneous -Tissue Removed Subcutaneous -Post Debridement (cm) - Length 1.0 -Post Debridement (cm) - Width 1.0 -Post Debridement (cm) - Depth 0.1 -Total Square (Post) (cm) 1.00 -Area of Debridement (cm) - Length 1.0 -Area of Debridement (cm) - Width 1.0 -Total Square (Area) (cm) 1.00 -Tunneling No -Undermining/Tunneling No -Circular Undermining No -Wound/Ulcer Outcome Not Healed -Ulcer Cleansing Rinsed/ Irrigated with Saline -Foul Odor after Cleansing No -Bioengineered Tissue No -Bleeding Controlled with Pressure -Offloading No -Treatment Response Procedure Tolerated Well -Debridement - Subq, 1st 20sq cm Yes [See Physician Procedure note for Specifics] Pain Scale: 0-10 Numeric [Pain] -Is Patient Pain Free? Yes WC - Nurse 3 - General Ulcer D/C NN Start: 02/02/20 13:19 Freq: Status: Active Protocol: Activity Type Activity Date Activity User E-Sign Co-Sign Detail Recorded Client Recorded Date Recorded By Document 02/23/20 15:50 RB [id number] 02/23/20 15:51 RB 02/23/20 15:50 Wound Care Nurse 3 [Wound Dressing] #5- R BENOIT -Ulcer Cleansing Wound Cleanser -Primary Dressing Applied C Hydrogel ($), NonAdherent Contact Layer -Primary Dressing Covered/Secured Dry Gauze,Dry with Gauze & Roll Gauze,Secured with Tape [Compression Applied] Right -Other pt own tubigrip single layer [Post Procedure Tolerated] -Treatment Response Procedure Tolerated Well Vital Signs [Blood Pressure] -Blood Pressure (90/60-120/80) 126/70 H -Blood Pressure Mean (mm Hg) 88 -Source Monitor -Position Sitting -Blood Pressure Location Right Arm Pain Scale: 0-10 Numeric [Pain] -Is Patient Pain Free? Yes Teaching: Wound Center [Wound Center Education] (Items with an * have Printed Materials Available- Please identify what is given to patient under the Teaching materials given to patient and caregiver Section. Compression Wraps & Stockings -Person Taught Patient -Teaching Method Discussion, Demonstration -Response to teaching Reinforcement needed Dressing Your Wound -Person Taught Family,Primary Caregiver -Teaching Method Discussion, Demonstration -Response to teaching Reinforcement needed WC - Visit Discharge [Visit Discharge Information] -Discharge Condition Stable -Ambulatory Status Wheelchair -Transportation Private Auto -Medication Reconcilliation completed No & provided to patient/care provider -Clinical Summary of Care Provided Yes Musculoskeletal: No Tenderness to Palpation of Joints or Extremities, Muscle Wasting Neurological: Sensory exam intact to light touch and pain Psych/Mental Status: Normal Affect, Appropriate Debridement Note Post-Debridement Measurements/Treatment WC - Nurse 2 - General Ulcer CM Notes Start: 02/02/20 13:19 Freq: Status: Active Protocol: Activity Type Activity Date Activity User E-Sign Co-Sign Detail Recorded Client Recorded Date Recorded By Document 02/02/20 14:07 [id number] 02/02/20 14:09 Document 02/09/20 14:17 [id number] 02/09/20 14:22 Document 02/23/20 15:21 [id number] 02/23/20 15:22 02/02/20 02/09/20 02/23/20 14:07 14:17 15:21 Wound Center Nurse 2 #5- R BENOIT -Time 14:08 14:17 15:21 -Correct Patient Yes Yes Yes -Correct Side, Site, Position Yes Yes Yes -Correct Procedure Yes Yes Yes -Procedure Performed Yes Yes Yes -Type of Procedure Debridement Debridement Debridement -Clinical Debridement Subcutaneous Subcutaneous Subcutaneous -Tissue Removed Subcutaneous Subcutaneous Subcutaneous -Post Debridement (cm) - Length 0.9 0.9 1.0 -Post Debridement (cm) - Width 2.6 2.0 1.0 -Post Debridement (cm) - Depth 0.1 0.1 0.1 -Total Square (Post) (cm) 2.34 1.80 1.00 -Area of Debridement (cm) - Length 0.9 0.9 1.0 -Area of Debridement (cm) - Width 2.6 2.0 1.0 -Total Square (Area) (cm) 2.34 1.80 1.00 -Tunneling No No No -Undermining/Tunneling No No No -Circular Undermining No No No -Wound/Ulcer Outcome Not Healed Not Healed Not Healed -Ulcer Cleansing Rinsed/ Rinsed/ Rinsed/ Irrigated with Irrigated with Irrigated with Saline Saline Saline -Foul Odor after Cleansing No No No -Bioengineered Tissue No No No -Bleeding Controlled with Pressure Pressure Pressure -Offloading No No No -Treatment Response Procedure Procedure Procedure Tolerated Well Tolerated Well Tolerated Well -Debridement - Subq, 1st 20sq cm Yes Yes Yes Pain Scale: 0-10 Numeric Is Patient Pain Free? Yes Yes Yes WC - Nurse 3 - General Ulcer D/C NN Start: 02/02/20 13:19 Freq: Status: Active Protocol: Activity Type Activity Date Activity User E-Sign Co-Sign Detail Recorded Client Recorded Date Recorded By Document 02/02/20 14:24 [facility] [id number] 02/02/20 14:25 BM Document 02/09/20 14:34 RB [id number] 02/09/20 14:36 RB Document 02/23/20 15:50 RB [id number] 02/23/20 15:51 RB 02/02/20 02/09/20 02/23/20 14:24 14:34 15:50 Wound Care Nurse 3 #5- R BENOIT -Ulcer Cleansing Rinsed/ Rinsed/ Wound Cleanser Irrigated with Irrigated with Saline Saline -Foul Odor after Cleansing No -Primary Dressing Applied C Hydrogel ($), NonAdherent C Hydrogel ($), NonAdherent Contact Layer NonAdherent Contact Layer Contact Layer -Other Dressing hydrogel -Primary Dressing Covered/Secured with Dry Gauze & Dry Gauze,Dry Dry Gauze,Dry Roll Gauze, Gauze & Roll Gauze & Roll Secured with Gauze,Secured Gauze,Secured Tape with Tape with Tape Right -Tubular Bandage Single Layer -Size of Tubigrip Used Size F -Size F ($) 1 -Other pt own tubigrip pt own tubigrip bilat single single layer layer Left -Tubular Bandage Single Layer -Size of Tubigrip Used Size F -Size F ($) 1 -Other single tubigrip Treatment Response Procedure Procedure Procedure Tolerated Well Tolerated Well Tolerated Well Vital Signs Blood Pressure (90/60-120/80) 114/60 126/70 H Blood Pressure Mean (mm Hg) 78 88 Source Monitor Monitor Position Semi-Fowlers Sitting Blood Pressure Location Left Arm Right Arm Pain Scale: 0-10 Numeric Is Patient Pain Free? Yes Yes Yes Teaching: Wound Center Compression Wraps & Stockings -Person Taught Patient Patient -Teaching Method Discussion Discussion, Demonstration -Response to teaching Verbalize Reinforcement understanding needed Dressing Your Wound -Person Taught Family,Primary Caregiver -Teaching Method Discussion, Demonstration -Response to teaching Reinforcement needed WC - Visit Discharge Discharge Condition Stable Stable Stable Ambulatory Status Wheelchair Ambulatory Wheelchair Transportation [employer] Private Auto Medication Reconcilliation completed & No No provided to patient/care provider Clinical Summary of Care Provided Yes Yes Wound debrided: anterior leg Laterality: Right Type of Debridement: Excisional debridement Anesthesia Used: 5% Lidocaine Gel Depth: in the subcutaneous layer Percentage of wound debrided: 100 Instrument Used: #15 blade Tissue Removed: fibrous, devitalized subcutaneous, biofilm, slough Severity: Fat Layer Exposed Amount of bleeding with debridement: Mild Bleeding Controlled with: Pressure Patient tolerated procedure well Assessment/Plan Active Problems (Last Reviewed 12/20/19 @ 14:36 by Miri Amado HOUSING MANAGER, HOUSING MANAGER-C) Ulcer of right lower extremity with fat layer exposed (Acute) Claudication of both lower extremities (Chronic) Right knee pain (Chronic) Venous insufficiency (Chronic) left Bilateral leg edema (Chronic) Assessment: right anterior lower leg stable, no infection. Venous insufficiency left lower extremity. 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 Claudication and peripheral vascular disease suspected. Leg edema bilateral lower extremities. History of recurrent ulcers with delayed healing. Right knee pain Plan: I reviewed and discussed his case. The right leg ulcer site was debrided as noted in the clinical panel. To continue to change the dressing daily with hydrogel and Adaptic. His chronic lower extremity edema is noted and he was advised to continue with compression therapy to the right lower extremity. He has no local or systemic signs of illness at this time and I do not recommend antibiotic therapy. An order for noninvasive arterial studies as well as venous Doppler with reflux evaluation was provided previously during his last wound at the wound healing center. He has suspected perfusion according to his study from 2017. I do not x-ray recommend he get this updated due to his increased vague leg pains were reported. This may be consistent with claudication. He has a history of deep venous thrombosis and some venous insufficiency noted. To continue long-term Eliquis as managed by his primary care physician. He had prior biphasic waveforms at the ankle level. Right LIO of 1.26, left LIO of 1.41, right digital index of 1 and left digital index of 1.06. It is also noted that he has had several cardiac procedures in which the leg veins were harvested for use. There was incompetence to the legs. To follow-up with pain management physician and orthopedic physician. To follow-up at the wound healing center 2 weeks.
--- NOTE | 2020-05-08 12:21 | WC ---
02/02/20 [facility] Initial
== END 2020-02-28 23:59 ==
LOC: WC 15:00
PROVIDERS: PCP Family Medicine; Visit Provider Podiatrist
DX: I73.9 Peripheral vascular disease, unspecified (principal); L97.812 Non-pressure chronic ulcer of other part of right lower leg with fat layer exposed; R60.0 Localized edema; L97.822 Non-pressure chronic ulcer of other part of left lower leg with fat layer exposed; S80.822A Blister (nonthermal), left lower leg, initial encounter; S80.821A Blister (nonthermal), right lower leg, initial encounter; X58.XXXA Exposure to other specified factors, initial encounter; Z86.718 Personal history of other venous thrombosis and embolism; I87.2 Venous insufficiency (chronic) (peripheral); M25.561 Pain in right knee
CPT/HCPCS: 11042

== ENCOUNTER 2020-03-08 14:30 | Outpatient (RCR) | payer MEDICARE, OTHER, SELFPAY ==
[2020-02-29 00:07] VITALS: BP 126/70; PULSE 66; RESP 18; TEMP 36.3
--- NOTE | 2020-03-07 09:55 | ART_ITS ---
Reason For Study: PVD Procedure A bilateral lower extremity continuous wave Doppler with analog waveform analysis,segmental pressures,and ankle brachial indexes without exercise. Left Segmental Pressures Left brachial= 150mmHg. Left posterior tibial artery = 162mmHg. Left dorsalis pedis artery = 164mmHg. Left digit = 137 mmHg. The left dorsalis pedis waveforms are triphasic. The left posterior tibial artery waveforms are triphasic. Right Segmental Pressures Right brachial= 154mmHg. Right posterior tibial artery = 172mmHg. Right dorsalis pedis artery = 161mmHg. Right digit = 131 mmHg. The right dorsalis pedis waveforms are triphasic. The right posterior tibial artery waveforms are triphasic. Indices The right ankle brachial index by the dorsalis pedis is 1.05. The right ankle brachial index by the posterior tibial artery is 1.12. The right digital-brachial index is 0.85. The left ankle brachial index by the dorsalis pedis is 1.06. The left ankle brachial index by the posterior tibial artery is 1.05. The left digital-brachial index is 0.89. Interpretation Summary Triphasic Doppler waveforms are noted at ankle level bilaterally. Pulse-volume recording waveform amplitudes are diminished at digital level bilaterally, but satisfactory at low-thigh, calf, and ankle levels bilaterally. Resting ankle-brachial indices are normal bilaterally. Digital-brachial indices are normal bilaterally. There is no evidence of significant arterial occlusive disease in the lower extremities bilaterally. Ordering Physician: Michelle Escalante Referring Physician: Calderon Ramirez Performed By: Concha Fraire RVT
[2020-03-08 14:27] VITALS: BP 138/70; PULSE 61; RESP 18; TEMP 36.4; BMI 34.4
--- NOTE | 2020-03-08 21:27 | PN.PCM_ITS ---
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 He denies drainage and thinks the ulcer site has healed. He is continue with compression therapy and elevation. He has pain to the front of his shins, right knee, and his entire calf. He describes his discomfort in a vague manner. He denies distinct burning or tingling. his pain radiates from his knee and is aggravated with activity. He has leg cramping with walking short distances but is unable to state the length of walking. He denies redness or warmth to his legs. He has a history of blood clot history and is on [facility] Eliquis. He denies shortness of breath or chest pain. He is with his today. He plans to follow up with pain management physician, Dr. Buckner. He also sees an orthopedic doctor for his knee and does not have a follow up session scheduled. He completed his noninvasive vascular studies and would like to go over the results today. Progress of Wound: improving - Physical Exam Vital Signs Temp Pulse Resp BP 97.5 F L 61 18 138/70 H 03/08/20 14:27 03/08/20 14:27 03/08/20 14:27 03/08/20 14:27 General: Alert, Oriented x3, Cooperative, No apparent distress HEENT: Atraumatic Extremities: No cyanosis, Capillary Refill Less than 3 Seconds, No Calf Tenderness - Negative Masoud and Farrell sign bilateral, Diminished Peripheral Pulses, Edema Skin: Ulcer/ Wound - Full epithelialization is noted in the ulcer site is healed. There is no purulence, erythema, streaking, odor, infection. Wound Measurements and Assessment WC - Nurse 1 - General Ulcer Measurement Start: 03/08/20 14:23 Freq: Status: Active Protocol: Activity Type Activity Date Activity User E-Sign Co-Sign Detail Recorded Client Recorded Date Recorded By Document 03/08/20 14:27 ND [id number] 03/08/20 14:36 ND 03/08/20 14:27 Wound Center Nurse 1 [Ulcer Assessment] #5- R BENOIT -Combined with other wound No -Current Size (cm) - Length 0 -Current Size (cm) - Width 0 -Current Size (cm) - Depth 0 -Total Square Cm 0 -Photo Taken Yes -Epithelialization Large 67-100% [Edema Assessment] -Lower Limb Edema Present No WC - Nurse 2 - General Ulcer CM Notes Start: 03/08/20 14:23 Freq: Status: Active Protocol: Activity Type Activity Date Activity User E-Sign Co-Sign Detail Recorded Client Recorded Date Recorded By Document 03/08/20 15:04 [id number] 03/08/20 15:05 03/08/20 15:04 Wound Center Nurse 2 [Procedure/Treatment] #5- R BENOIT -Correct Patient No -Correct Side, Site, Position No -Correct Procedure No -Procedure Performed No -Post Debridement (cm) - Length 0 -Post Debridement (cm) - Width 0 -Post Debridement (cm) - Depth 0 -Total Square (Post) (cm) 0 -Area of Debridement (cm) - Length 0 -Area of Debridement (cm) - Width 0 -Total Square (Area) (cm) 0 -Wound/Ulcer Outcome Healed- Epithelialized [See Physician Procedure note for Specifics] Pain Scale: 0-10 Numeric [Pain] -Is Patient Pain Free? Yes Musculoskeletal: Muscle Wasting Neurological: Sensory exam intact to light touch and pain, - Psych/Mental Status: Normal Affect, Appropriate Debridement Note Post-Debridement Measurements/Treatment WC - Nurse 2 - General Ulcer CM Notes Start: 03/08/20 14:23 Freq: Status: Active Protocol: Activity Type Activity Date Activity User E-Sign Co-Sign Detail Recorded Client Recorded Date Recorded By Document 03/08/20 15:04 [id number] 03/08/20 15:05 03/08/20 15:04 Wound Center Nurse 2 #5- R BENOIT -Correct Patient No -Correct Side, Site, Position No -Correct Procedure No -Procedure Performed No -Post Debridement (cm) - Length 0 -Post Debridement (cm) - Width 0 -Post Debridement (cm) - Depth 0 -Total Square (Post) (cm) 0 -Area of Debridement (cm) - Length 0 -Area of Debridement (cm) - Width 0 -Total Square (Area) (cm) 0 -Wound/Ulcer Outcome Healed- Epithelialized Pain Scale: 0-10 Numeric Is Patient Pain Free? Yes No debridement was completed today - healed Assessment/Plan Active Problems (Last Reviewed 12/20/19 @ 14:36 by Miri Amado FIELD RESEARCH ASSOCIATE, FIELD RESEARCH ASSOCIATE-C) Claudication of both lower extremities (Chronic) Right knee pain (Chronic) Bilateral leg edema (Chronic) Assessment: right anterior lower leg ulcer healing. Venous insufficiency left lower extremity. 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 Claudication and peripheral vascular disease currently ruled out. Leg edema bilateral lower extremities. Right knee pain Plan: I reviewed and discussed his case. This ulcer site has healed and he was advised to discontinue dressing care. To monitor for reoccurrence. He was reassured there are no signs of infection. His chronic lower extremity edema is noted and he was advised to continue with compression therapy to the right lower extremity. His noninvasive vascular studies were reviewed and he has triphasic bilateral waveforms the lower extremities and no gross abnormalities or stenosis are suspected. To continue on Eliquis. It is also noted that he has had several cardiac procedures in which the leg veins were harvested for use. There was incompetence to the legs. To follow-up with pain management physician and orthopedic physician for further knee pain work-up which is not in the scope of care at the wound center. He is discharged at this time. He is advised to follow-up as needed.
== END 2020-03-30 23:59 ==
LOC: WC 14:30
PROVIDERS: PCP Family Medicine; Referring Provider Podiatrist; Visit Provider Podiatrist
DX: Z09 Encounter for follow-up examination after completed treatment for conditions other than malignant neoplasm (principal); I73.9 Peripheral vascular disease, unspecified; R60.0 Localized edema; M25.561 Pain in right knee; Z86.718 Personal history of other venous thrombosis and embolism; Z79.01 Long term (current) use of anticoagulants
CPT/HCPCS: 93923; 99212; G0463

== ENCOUNTER 2020-03-09 12:32 | Emergency (ER) | payer MEDICARE, OTHER, SELFPAY ==
[2020-03-08 14:27] VITALS: BMI 34.4
[2020-03-09 12:35] VITALS: BP 147/81; PULSE 77; RESP 16; TEMP 36.9; O2SAT 97; BMI 33.8
--- NOTE | 2020-03-09 13:04 | ED.VIS.GEN ---
History of Present Illness Chief Complaint: Complaint Informant: Patient Narrative: Patient is an 84-year-old male who presents to the emergency department for urinary retention, suprapubic abdominal pain and rectal pain. He states that he has not urinated over the past 24 hours. He is also constipated and states he has not had a bowel movement in the past 3 days. He has had issues with both of these before in the past. He is required Crowder catheter. He is not sure if he has had prostate problems. He has used enemas before in the past but did not have any to use this time. He denies any fevers or chills. No nausea or vomiting. He currently rates the abdominal pain as severe. He does have a history of abdominal hernia repair as well as open heart surgery. Past Medical History - Allergies and Home Meds Allergies/Adverse Reactions: Allergies diazepam [From Valium] Allergy (Intermediate, Verified 03/09/20 12:38) Other HALLUCINATIONS morphine Allergy (Intermediate, Verified 03/09/20 12:38) Other TWITCHES Primary Care Physician: Jaspreet Beal MD [STAFF PHYSICIAN] - 2 Days Calderon Ramirez MD [Primary Care Provider] - Prior records reviewed: Yes Surgical History: angioplasty - Stent., coronary bypass surgery, total hip arthroplasty, - - Hiatal hernia surgery. Smoking Status: Former smoker - Family History Maternal Family History: Family History (Last Reviewed 12/20/19 @ 14:36 by Miri Amado NP, MEDICAL LIBRARY ASSISTANT-C) Father No problems noted. Mother Cancer Brother Throat cancer Brother COPD (chronic obstructive pulmonary disease) Brother No problems noted. Sister COPD (chronic obstructive pulmonary disease) Heart disease Sister COPD (chronic obstructive pulmonary disease) Family History: Reports: No pertinent history Paternal Family History: Family History (Last Reviewed 12/20/19 @ 14:36 by Miri Amado NP, MEDICAL LIBRARY ASSISTANT-C) Father No problems noted. Mother Cancer Brother Throat cancer Brother COPD (chronic obstructive pulmonary disease) Brother No problems noted. Sister COPD (chronic obstructive pulmonary disease) Heart disease Sister COPD (chronic obstructive pulmonary disease) Family History: Reports: No pertinent history Review of Systems All systems negative except as indicated General: Denies: Chills, Fever, Sweats Eyes: Denies: Visual changes - bilaterally, Diplopia ENT: Denies: Rhinorrhea, Sore throat Cardiovascular: Denies: Chest pain, Palpitations Respiratory: Denies: Dyspnea, Cough, Dyspnea on exertion Gastrointestinal: Reports: Abdominal pain, Constipation. Denies: Nausea, Vomiting, Diarrhea, Melena, Hematochezia Genitourinary: Reports: Dysuria, - - Difficulty urinating. Denies: Hematuria, Frequency Musculoskeletal: Denies: Back pain, Extremity Pain Skin: Denies: Rash, Wounds Neurological: Denies: Headache, Weakness, Numbness Physical Exam Vital Signs/Narrative: Vital Signs Temp Pulse Resp BP Pulse Ox 03/09/20 12:35 98.4 F 77 16 147/81 H 97 General: Well nourished, Well developed, - - Patient does appear in pain Head: Normocephalic, Atraumatic Eyes: Perrl, EOMI ENT: Moist mucous membranes, No rhinorrhea Neck: Supple, Nontender Cardiovascular: Regular rate, Regular rhythm, No murmurs Respiratory: No distress, CTA bilaterally, Chest nontender Abdomen: Soft, Nondistended, Normal bowel sounds, Tender - , Lower quadrants bilaterally. Negative for: Rebound tenderness Rectal: - - No perineal rash or lesions present. Back: Nontender, Normal Inspection. Negative for: CVA tenderness Extremities: Nontender, No edema Skin: Normal color, No rash Neurological: Alert, Oriented x3, Cranial nerves II-XII grossly intact, Normal Strength, Normal Sensation Psychological: Normal affect, Normal Mood Diagnostic/Tx/Re-eval - Medical Decision Making Patient presents to the ED for urinary retention, constipation with pain. Will place a Crowder catheter to help with the patient's abdominal pain. Patient had very good relief of his abdominal discomfort with the Crowder catheter placement. He still complaining of rectal pain with the constipation. That time soapsuds enema was performed. He was able to pass stool. We will write a prescription for MiraLAX and Colace. He states that this is a chronic issue for him and is not having any new symptoms. This time I do not feel CT imaging or lab work is necessary. We will have him follow-up with his PCP. Warning signs and symptoms for which to return to the ED including worsening abdominal pain are reviewed. He understands and is agreeable this plan. Discharged home in stable condition. All questions answered. ED Disposition - Plan for ED Patient: Disposition: Home or Assisted Living Diagnosis: Urinary retention, Constipation Instructions: ED Constipation (Adult), ED Crowder Catheter, Care, ED Urinary Retention, Male Prescriptions: Docusate Sodium [Colace] 100 mg PO BID 15 Days #30 cap Transmission Status: Received by [facility]/pharmacy #[id number] Polyethylene Glycol 3350 [Miralax] 17 gm PO DAILY 5 Days #5 powd.pack Transmission Status: Received by [facility]/pharmacy #[id number] Referrals: Calderon Ramirez MD [Primary Care Provider] - Jaspreet Beal MD [STAFF PHYSICIAN] - 2 Days
[2020-03-09 13:42] LABS: Bacteria 0 SEEN /hpf (None Seen); Color, Urine Yellow (Yellow); Glucose, Dipstick Normal (Normal); Ketone-Dipstick Negative (Negative); Leukocyte Esterase-Dipstick Negative /ul (Negative); Mucous, Urine 0 SEEN /hpf (<or=2+); Nitrite-Dipstick Negative (Negative); Occult Blood-Urine 25 /ul (Negative); Protein-Dipstick 15 mg/dl (Negative); Red Blood Cells-Urine 0 SEEN /hpf (0-5); Squamous Epithelial Cells - UA 0 SEEN /hpf (0-5); Urine Bilirubin Dipstick Negative (Negative); Urine Clarity Clear (Clear); Urine Urobilinogen Normal (Normal); White Blood Cells 0 SEEN /hpf (0-5)
[2020-03-09 17:39] VITALS: BP 154/74; PULSE 78; RESP 16; O2SAT 96
[2020-03-09] MEDS: Magnesium Citrate 300 ML PO (20:00)
[2020-03-09 22:18] VITALS: BP 133/66; PULSE 70; RESP 18; O2SAT 95
--- NOTE | 2020-03-09 22:35 | ED.RN ---
THIS NURSE CALLED PT'S THEODORE AND INFORMED HER PT IS BEING DISCHARGED TO HOME. 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
--- NOTE | 2020-03-09 22:35 | ED.RN ---
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
[2020-03-09] MEDS: Ondansetron ODT 4 MG Tablet PO (22:53)
== END 2020-03-09 23:08 | disposition home or self-care (01) ==
PROVIDERS: Emergency Provider Emergency Medicine; PCP Family Medicine
DX: R33.9 Retention of urine, unspecified (principal); K59.00 Constipation, unspecified; Z95.1 Presence of aortocoronary bypass graft; Z95.5 Presence of coronary angioplasty implant and graft; Z79.82 Long term (current) use of aspirin; Z79.01 Long term (current) use of anticoagulants; Z79.899 Other long term (current) drug therapy; Z87.891 Personal history of nicotine dependence
CPT/HCPCS: 51702; 81001; 87086; 99285

== ENCOUNTER → 2020-06-22 | Outpatient (CLI) | payer MEDICARE, OTHER, SELFPAY ==
[2020-06-20 13:52] VITALS: BMI 34.2
== END | disposition home or self-care (01) ==
LOC: LABSPEC 11:12
PROVIDERS: PCP Family Medicine; Referring Provider Internal Medicine Critical Care Medicine; Visit Provider Internal Medicine Critical Care Medicine
DX: R06.09 Other forms of dyspnea (principal)
CPT/HCPCS: 87070; 87077; 87186; 87205

== ENCOUNTER 2020-09-07 10:30 | Outpatient (RCR) | payer MEDICARE, OTHER, SELFPAY ==
[2020-07-06 15:06] VITALS: BMI 34.2
[2020-08-31 09:19] VITALS: BP 133/65; PULSE 97; TEMP 36.4; BMI 34.2
--- NOTE | 2020-08-31 10:02 | HP.PCM_ITS ---
History of Present Illness Date of Service: 08/31/20 Chief Complaint: Left Leg Ulcer History of Wound: Mr. Kim is an 84-year-old who was referred by his terrazzo mechanic helper to the wound center due to recurrent left lower extremity ulcers. Has been seen here for prior ulcers. Most recent said to have started a week ago with blistering which subsequently opened up. Was seen by his terrazzo mechanic helper who subsequently referred him here. No known precipitating factor. Sleep in his lift chair because he is unable to lay on his back. He however states that he keeps his legs elevated. He has applied nothing. He feels well otherwise and does not report chills, fever, nausea, vomiting or change in bowel habit. [facility] Medical History (Updated 08/31/20 @ 12:[address] Jorge Valerio MD) Acute on chronic diastolic (congestive) heart failure Atherosclerotic heart disease of [place] coronary artery with other forms of angina pectoris Bilateral leg edema BPH (benign prostatic hyperplasia) Cellulitis of right leg Congestive heart failure Constipation CVA (cerebral vascular accident) Debility Deep venous embolism and thrombosis of left lower extremity Delayed wound healing Essential (primary) hypertension Family history of hypertension Foraminal stenosis of lumbar region Glaucoma History of pulmonary embolism Hyperlipidemia Hypomagnesemia [facility] use of drug Lumbar spinal stenosis Malnutrition NSTEMI (non-ST elevated myocardial infarction) (05/2018) KARAN (obstructive sleep apnea) Other specified peripheral vascular diseases Precordial chest pain Pulmonary embolism Pulmonary embolism with acute cor pulmonale (09/2018) Pulmonary hypertension Right pulmonary embolus Secondary pulmonary arterial hypertension Stroke Tricuspid valve disorder Ulcer of left lower extremity with fat layer exposed Ulcer of right lower extremity with fat layer exposed Venous insufficiency Home Medications metoprolol succinate 50 mg PO DAILY 06/23/13 [History Last Taken 08/31/19] magnesium oxide 400 mg (241.3 mg magnesium) tablet 400 mg PO DAILY tab 05/08/17 [History Last Taken 08/29/19] tamsulosin 0.4 mg capsule 0.4 mg PO DAILY 30 Days #30 12/05/17 [History Last Taken 08/31/19] folic acid 0.4 mg PO DAILY@0800 05/10/18 [History Last Taken 08/31/19] nitroglycerin 0.4 mg SL Q5M PRN tab.subl 10/13/18 [Rx Last Taken 08/31/19] atorvastatin 40 mg tablet 40 mg PO QHS #90 tab 12/11/18 [Rx Last Taken 08/29/19] finasteride 5 mg tablet 5 mg PO DAILY #30 tab 12/11/18 [History Last Taken 08/31/19] hydrocodone-acetaminophen 5-325mg 5mg-325mg 1 tab PO BID PRN PRN #84 tab 12/11/18 [History Last Taken 08/31/19] pantoprazole 20 mg tablet,delayed release 40 mg PO DAILY #60 tab 12/11/18 [History Last Taken 08/31/19] aspirin 81 mg PO DAILY@0800 08/31/19 [History Last Taken 08/31/19] cetirizine 10 mg PO DAILY 08/31/19 [History Last Taken 08/31/19] furosemide 40 mg PO DAILY 08/31/19 [History Last Taken 08/30/19] apixaban 5 mg tablet 5 mg PO BID tab 12/30/19 [History Last Taken Unknown] isosorbide mononitrate 60 mg tablet,extended release 24 hr 60 mg PO DAILY tablet 07/06/20 [History Last Taken Unknown] Allergy/AdvReac Type Severity Reaction Status Date / Time diazepam [From Valium] Allergy Intermediate Other Verified 06/20/20 13:53 morphine Allergy Intermediate Other Verified 06/20/20 13:53 Family History Father , Unknown cause No problems noted. Mother Cancer Brother Throat cancer Brother COPD (chronic obstructive pulmonary disease) Brother , unknown cause No problems noted. Sister COPD (chronic obstructive pulmonary disease) Heart disease Sister COPD (chronic obstructive pulmonary disease) Surgical History H/O coronary artery bypass surgery (09/12/00) History of coronary artery stent placement (05/19/18) History of repair of hiatal hernia Social History (Updated 07/06/20 @ 15:[address] Fito Alcala MD) Smoking Status: Former smoker pack-years: 15 ROS Constitutional Constitutional: Denies fatigue, fever(s), headache(s), increased appetite or lethargy Eyes Eyes: Denies decreased night vision, diplopia, exophthalmos, eye pain, floaters or foreign body ENT HEENT: Denies foreign body in nose, hearing loss, hoarseness, lip swelling, mouth pain or neck pain Cardiovascular Cardiovascular: Reports edema; Denies clubbing, cold extremities, cyanosis, dyspnea at rest or easily tiring during activity Respiratory/Chest Respiratory/Chest: Denies difficulty clearing secretions, dry cough, dusky skin, excessive phlegm production or pain with cough Gastrointestinal Gastrointestinal: Denies abdominal pain, chewing difficulty, diarrhea, dry heaves or dysphagia Genitourinary Genitourinary: Denies abdominal discomfort, burning urination, flank pain or genital bruising Musculoskeletal Musculoskeletal: Denies joint swelling, loss of height, muscle cramps, muscle spasms or muscle weakness Integumentary Integumentary: Reports wounds; Denies hirsutism, jaundice, lesions or unusual bruising Neurologic Neurologic: Denies dizziness, focal weakness, headache(s), lack of coordination, loss of vision or memory loss Psychiatric Psychiatric: Denies auditory hallucinations, behavioral changes, change in appetite, cognitive impairment or confusion Endocrine Endocrinology: Denies change in body appearance, excessive sweating, fatigue, flushing or heat intolerance Hematologic/Lymphatic Hematologic/Lymphatic: Denies anemia, easy bleeding, easy bruising or lymphadenopathy Allergic/Immunologic Allergic/Immunologic: Denies tongue swelling, hives, urticaria, eczemia or wheezing Vital Signs Vital Signs Vital Signs: 08/31/20 09:19 Temperature 97.5 F L Temperature Source Temporal Pulse Rate 97 Blood Pressure 133/65 H Blood Pressure Mean 87 Blood Pressure Source Monitor Blood Pressure Position Semi-Fowlers Blood Pressure Location Left Arm Weight Body Mass Index (BMI) 34.2 Physical Exam Const alert, oriented x3 and no apparent distress General Appearance: cooperative and comfortable HEENT Head and Scalp: normal to inspection and atraumatic Neck full ROM General: normal visual inspection Resp normal respiratory effort Effort and Inspection: able to speak in complete sentences Skin Wounds: wounds noted Neuro oriented x3, CN's II-XII intact bilaterally and moves all extremities Sensorium / Orientation: awake and alert Psych mental status grossly normal Appearance: grossly normal Activity / Motor Behavior: appropriate eye contact Speech: normal speech Debridement Note Debridement Note Post-Debridement Measurements and Additional Note: Post-Debridement Measurements/Treatment MARGARITO - Nurse 1 - General Ulcer Assessment Start: 08/31/20 09:19 Freq: Status: Active Protocol: DENIARuby Activity Type Activity Date Activity User E-Sign Co-Sign Detail Recorded Client Recorded Date Recorded By Document 08/31/20 09:19 ABRAHAN [id number] 08/31/20 09:27 ABRAHAN 08/31/20 09:19 - Today's Visit Information Type of service Initial Visit Arrival Mode Wheelchair Patient Identification Verified (Name & Yes ) Height and Weight Body Mass Index (BMI) 34.2 BMI Classification Obese Vital Signs Temperature (97.8 F-99.1 F) 97.5 F L Temperature Source Temporal Pulse Rate (60-100) 97 Pulse Location Monitor Blood Pressure (90/60-120/80) 133/65 H Blood Pressure Mean 87 Source Monitor Position Semi-Fowlers Blood Pressure Location Left Arm History Since Last Visit- (Skip if this is Patient's initial visit) Have you changed medications since your No last visit? Any new allergies or adverse reactions No Had a fall/change in ADL's that may No increase risk of falls Signs or symptoms of abuse and/or No neglect since last visit Have you been in the hospital since your No last visit? Has dressing in place as prescribed No Has compression in place as prescribed No Has offloadiing in place as prescribed No Experienced any changes in pain level or No management Left Footwear Regular Shoe Right Footwear Regular Shoe Pain Scale: 0-10 Numeric Is Patient Pain Free? Yes - Nurse 1 - General Ulcer Measurement Start: 08/31/20 09:19 Freq: Status: Active Protocol: Activity Type Activity Date Activity User E-Sign Co-Sign Detail Recorded Client Recorded Date Recorded By Document 08/31/20 09:19 ABRAHAN [id number] 08/31/20 09:27 ABRAHAN 08/31/20 09:19 Wound Center Nurse 1 #6 LLE Cluster -Current Size (cm) - Length 4.5 -Current Size (cm) - Width 6 -Current Size (cm) - Depth 0.1 -Total Square Cm 27.0 -Exudate Amt Medium -Exudate Type Serosanguineous -Wound Margin Distinct, Outline Attached -Granulation Amt Medium (34-66%) -Granulation Quality Red -Necrosis Amt Small (1-33%) -Necrotic Tissue Type Adherent Slough -Texture (Renata-wound Skin Appearance) Assessed, Scarring -Moisture (Renata-wound Skin Appearance) No Abnormality, Assessed -Color (Renata-wound Skin Appearance) No Abnormality, Assessed -Temperature (Renata-wound Skin No Abnormality Appearance) (Pt Warm) -Tenderness on Palpation (Renata-wound No Skin Appearance) -Ulcer Cleansing Rinsed/ Irrigated with Saline -Foul Odor after Cleansing No -Anesthetic Used 5% Lidocaine Gel Right Calf (cm) 38 Right Ankle (cm) 24 WC - Nurse 2 - General Ulcer CM Notes Start: 08/31/20 09:19 Freq: Status: Active Protocol: Activity Type Activity Date Activity User E-Sign Co-Sign Detail Recorded Client Recorded Date Recorded By Document 08/31/20 09:40 MW [id number] 08/31/20 09:44 MW 08/31/20 09:40 Wound Center Nurse 2 #6 LLE Cluster -Time 09:41 -Correct Patient Yes -Correct Side, Site, Position Yes -Correct Procedure Yes -Procedure Performed Yes -Type of Procedure Debridement -Clinical Debridement Subcutaneous -Tissue Removed Subcutaneous -Post Debridement (cm) - Length 5.0 -Post Debridement (cm) - Width 5.5 -Post Debridement (cm) - Depth 0.1 -Total Square (Post) (cm) 27.50 -Area of Debridement (cm) - Length 5.0 -Area of Debridement (cm) - Width 5.5 -Total Square (Area) (cm) 27.50 -Tunneling No -Undermining/Tunneling No -Circular Undermining No -Wound/Ulcer Outcome Not Healed -Ulcer Cleansing Rinsed/ Irrigated with Saline -Foul Odor after Cleansing No -Bioengineered Tissue No -Bleeding Controlled with Pressure -Offloading No -Treatment Response Procedure Tolerated Well -Debridement - Subq, 1st 20sq cm Yes -Debridement, SubQ, ea addt'l 20sq cm 1 or part thereof Pain Scale: 0-10 Numeric Is Patient Pain Free? Yes - Nurse 3 - General Ulcer D/C NN Start: 08/31/20 09:19 Freq: Status: Active Protocol: Activity Type Activity Date Activity User E-Sign Co-Sign Detail Recorded Client Recorded Date Recorded By Document 08/31/20 09:51 MS [id number] 08/31/20 09:53 MS 08/31/20 09:51 Wound Care Nurse 3 #6 LLE Cluster -Ulcer Cleansing Rinsed/ Irrigated with Saline -Primary Dressing Applied Promogran -Other Dressing adaptic -Primary Dressing Covered/Secured with Dry Gauze -Promogran 1 Left -Multi-Layered Wrap Application Multi-Layer Comp - Left ($) WC - Visit Discharge Discharge Condition Stable Ambulatory Status Wheelchair Transportation Private Auto Medication Reconcilliation completed & No provided to patient/care provider Clinical Summary of Care Provided Yes Additional Wound Wound debrided: Left lower extremity cluster Type of Debridement: Excisional debridement Anesthesia Used: 4% Lidocaine Solution Depth: Down to and including healthy tissue and in the subcutaneous layer Percentage of wound debrided: 100 Instrument Used: 5mm curette Tissue Removed: Slough and devitalized tissue Severity: Fat Layer Exposed Amount of bleeding with debridement: Mild Bleeding Controlled with: Pressure Patient tolerated procedure: Patient tolerated procedure well Charges/Coding Visit Charges Office Visits / Consults: [id number] OV L4 New Procedures Integumentary [id number]: [id number] Irish subq tissue 20 sq cm/< Assessment/Plan Assessment/Plan (1) Ulcer of left lower extremity with fat layer exposed: CODE(S): L97.922 - Non-pressure chronic ulcer of unspecified part of left lower leg with fat layer exposed (2) Other specified peripheral vascular diseases: CODE(S): I73.89 - Other specified peripheral vascular diseases (3) Venous insufficiency: CODE(S): I87.2 - Venous insufficiency (chronic) (peripheral) PLAN: Recurrent bilateral lower extremity ulcers. Now presents with a 1 week left lower extremity ulceration. Debridement done as documented above, procedure was well-tolerated. Promogran with Adaptic over top. Leave in place for a week. 3M wrap for edema management. Elevate lower extremities when seated and in bed. Increase protein intake. Vitamin C and zinc also recommended. There questions were answered and they were advised to call with any further questions or concerns. Follow-up in a week. This note was generated with [employer] software. It may contain incorrect words, spelling, and punctuation that were not noted in checking the note before signing.
[2020-09-07 10:39] VITALS: BP 129/83; PULSE 63; RESP 20; TEMP 36.2; BMI 34.2
--- NOTE | 2020-09-07 12:37 | PN.PCM_ITS ---
History of Present Illness Date of Service: 09/07/20 Chief Complaint: Left Leg Ulcer History of Wound: Mr. Kim is an 84-year-old who was referred by his self sealing fuel tank repairer to the wound center due to recurrent left lower extremity ulcers. Has been seen here for prior ulcers. Most recent said to have started a week ago with blistering which subsequently opened up. Was seen by his self sealing fuel tank repairer who subsequently referred him here. No known precipitating factor. Sleep in his lift chair because he is unable to lay on his back. He however states that he keeps his legs elevated. He has applied nothing. He feels well otherwise and does not report chills, fever, nausea, vomiting or change in bowel habit. Subjective Subjective Previous ulcers. Minimal skin tear of the medial lower leg. Feels well otherwise. Objective Data Objective Data Vital Signs: Vital Signs Temp Pulse Resp BP 97.2 F L 63 20 H 129/83 H 09/07/20 10:39 09/07/20 10:39 09/07/20 10:39 09/07/20 10:39 Body Mass Index (BMI) 34.2 Charges/Coding Visit Charges Office Visits / Consults: [id number] OV L3 Est Physical Exam Const alert, oriented x3 and no apparent distress General Appearance: cooperative and comfortable HEENT Head and Scalp: normal to inspection and atraumatic Neck full ROM General: normal visual inspection Resp normal respiratory effort Effort and Inspection: able to speak in complete sentences Skin Wounds: wounds noted Neuro oriented x3, CN's II-XII intact bilaterally and moves all extremities Sensorium / Orientation: awake and alert Psych mental status grossly normal Appearance: grossly normal Activity / Motor Behavior: appropriate eye contact Speech: normal speech Assessment/Plan Assessment/Plan (1) Ulcer of left lower extremity with fat layer exposed: CODE(S): L97.922 - Non-pressure chronic ulcer of unspecified part of left lower leg with fat layer exposed (2) Other specified peripheral vascular diseases: CODE(S): I73.89 - Other specified peripheral vascular diseases (3) Venous insufficiency: CODE(S): I87.2 - Venous insufficiency (chronic) (peripheral) PLAN: No debridement completed today, all sites healed. Minimal area of skin tear on the medial lower leg. Promogran with Adaptic over top. May remove in 3 to 4 days. Double layer Tubigrip for edema management. Elevate lower extremities when seated and in bed. Increase protein intake. Vitamin C and zinc also recommended. Their questions were answered and they were advised to call with any further questions or concerns. Discharge from the wound clinic This note was generated with [employer] dictation software. It may contain incorrect words, spelling, and punctuation that were not noted in checking the note before signing.
== END 2020-09-07 11:25 | disposition home or self-care (01) ==
LOC: WC 10:30
PROVIDERS: PCP Family Medicine; Referring Provider Podiatrist Foot & Ankle Surgery; Visit Provider Internal Medicine
DX: I73.89 Other specified peripheral vascular diseases (principal); I87.2 Venous insufficiency (chronic) (peripheral); L97.822 Non-pressure chronic ulcer of other part of left lower leg with fat layer exposed; I50.32 Chronic diastolic (congestive) heart failure; I25.10 Atherosclerotic heart disease of native coronary artery without angina pectoris; N44.00 Torsion of testis, unspecified; R60.0 Localized edema; Z86.711 Personal history of pulmonary embolism; I25.2 Old myocardial infarction; G47.33 Obstructive sleep apnea (adult) (pediatric); I11.0 Hypertensive heart disease with heart failure; I27.21 Secondary pulmonary arterial hypertension; Z79.899 Other long term (current) drug therapy; Z79.82 Long term (current) use of aspirin; Z79.01 Long term (current) use of anticoagulants; Z87.891 Personal history of nicotine dependence
CPT/HCPCS: 11042; 11045; 29581; 99213; G0463

== ENCOUNTER → 2020-10-16 11:18 | Outpatient (CLI) | payer MEDICARE, OTHER, SELFPAY | PROVIDERS: PCP Family Medicine; Visit Provider Nurse Practitioner Adult Health | DX: N39.0 Urinary tract infection, site not specified (principal) | CPT/HCPCS: 87086; 87088 ==

== ENCOUNTER → 2020-11-09 14:42 | Outpatient (CLI) | payer MEDICARE, OTHER, SELFPAY ==
[2020-11-09 17:39] LABS: Anion Gap 6 (5-15); BUN 18 mg/dL (7-18); Calcium,Total 9.2 mg/dL (8.5-10.1); Chloride 106 mmol/L (98-107); Creatinine, Serum 1.29 mg/dL (0.70-1.30); EST Glomerular Filtration Rate 56 mL/min (>60); Est Glom Filt Rate - Afr Amer 68 mL/min (>60); Glucose 79 mg/dL (74-106); Potassium 4.7 mmol/L (3.5-5.1); Sodium Level 139 mmol/L (136-145)
== END ==
PROVIDERS: PCP Family Medicine; Visit Provider Family Medicine
DX: R60.9 Edema, unspecified (principal)
CPT/HCPCS: 36415; 80048

== ENCOUNTER 2020-12-13 10:05 | Outpatient (RCR) | payer MEDICARE, OTHER, SELFPAY ==
[2020-12-13 10:17] VITALS: BP 138/61; PULSE 58; RESP 18; TEMP 36.1; O2SAT 96
--- NOTE | 2020-12-13 11:57 | HP.PCM_ITS ---
History of Present Illness Date of Service: 12/13/20 Chief Complaint: Left Leg Ulcer History of Wound: Mr. Kim is an 85-year-old who was referred by his reel worker to the wound center due to recurrent left lower extremity ulcers. Has been seen here for prior ulcers. Most recent said to have started a week ago with blistering which subsequently opened up. Was seen by his reel worker who subsequently referred him here. No known precipitating factor. Sleep in his lift chair because he is unable to lay on his back. He however states that he keeps his legs elevated. He has applied nothing. He feels well otherwise and does not report chills, fever, nausea, vomiting or change in bowel habit. [facility] Medical History Acute on chronic diastolic (congestive) heart failure Atherosclerotic heart disease of [place] coronary artery with other forms of angina pectoris Bilateral leg edema BPH (benign prostatic hyperplasia) Cellulitis of right leg Congestive heart failure Constipation CVA (cerebral vascular accident) Debility Deep venous embolism and thrombosis of left lower extremity Delayed wound healing Essential (primary) hypertension Family history of hypertension Foraminal stenosis of lumbar region Glaucoma History of pulmonary embolism Hyperlipidemia Hypomagnesemia 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 use of drug Lumbar spinal stenosis Malnutrition NSTEMI (non-ST elevated myocardial infarction) (05/2018) KARAN (obstructive sleep apnea) Other specified peripheral vascular diseases Precordial chest pain Pulmonary embolism Pulmonary embolism with acute cor pulmonale (09/2018) Pulmonary hypertension Right pulmonary embolus Secondary pulmonary arterial hypertension Stroke Tricuspid valve disorder Ulcer of left lower extremity with fat layer exposed Ulcer of right lower extremity with fat layer exposed Venous insufficiency Home Medications metoprolol succinate 50 mg PO DAILY 06/23/13 [History Last Taken 08/31/19] magnesium oxide 400 mg (241.3 mg magnesium) tablet 400 mg PO DAILY tab 05/08/17 [History Last Taken 08/29/19] tamsulosin 0.4 mg capsule 0.4 mg PO DAILY 30 Days #30 12/05/17 [History Last Taken 08/31/19] folic acid 0.4 mg PO DAILY@0800 05/10/18 [History Last Taken 08/31/19] nitroglycerin 0.4 mg SL Q5M PRN tab.subl 10/13/18 [Rx Last Taken 08/31/19] atorvastatin 40 mg tablet 40 mg PO QHS #90 tab 12/11/18 [Rx Last Taken 08/29/19] finasteride 5 mg tablet 5 mg PO DAILY #30 tab 12/11/18 [History Last Taken 08/31/19] hydrocodone-acetaminophen 5-325mg 5mg-325mg 1 tab PO BID PRN PRN #84 tab 12/11/18 [History Last Taken 08/31/19] pantoprazole 20 mg tablet,delayed release 40 mg PO DAILY #60 tab 12/11/18 [History Last Taken 08/31/19] aspirin 81 mg PO DAILY@0800 08/31/19 [History Last Taken 08/31/19] cetirizine 10 mg PO DAILY 08/31/19 [History Last Taken 08/31/19] furosemide 40 mg PO DAILY 08/31/19 [History Last Taken 08/30/19] apixaban 5 mg tablet 5 mg PO BID tab 12/30/19 [History Last Taken Unknown] isosorbide mononitrate 60 mg tablet,extended release 24 hr 60 mg PO DAILY tablet 07/06/20 [History Last Taken Unknown] cephalexin 500 mg capsule 500 mg PO .QID cap 12/06/20 [History Last Taken Unknown] Allergy/AdvReac Type Severity Reaction Status Date / Time diazepam [From Valium] Allergy Intermediate Other Verified 12/06/20 14:23 morphine Allergy Intermediate Other Verified 12/06/20 14:23 Family History (Updated 12/13/20 @ 12:03 by Marianna Mckeon NP, [employer]) Father , Unknown cause No problems noted. Mother Cancer Brother Throat cancer Brother COPD (chronic obstructive pulmonary disease) Brother , unknown cause No problems noted. Sister COPD (chronic obstructive pulmonary disease) Heart disease Sister COPD (chronic obstructive pulmonary disease) Other Debility Surgical History H/O coronary artery bypass surgery (09/12/00) History of coronary artery stent placement (05/19/18) History of repair of hiatal hernia Social History Smoking Status: Former smoker pack-years: 15 ROS Integumentary Integumentary: Reports dry skin, erythema, non-healing lesions, skin pain, skin swelling and wounds Vital Signs Vital Signs Vital Signs: 12/13/20 10:17 Temperature 97.0 F L Temperature Source Temporal Pulse Rate 58 L Respiratory Rate 18 Blood Pressure 138/61 H Blood Pressure Mean 86 Blood Pressure Source Monitor Blood Pressure Position Sitting Blood Pressure Location Right Arm Pulse Ox 96 Oxygen Delivery Method Room Air Physical Exam Const oriented x3 General Appearance: cooperative Exam Limitations: no limitations Resp normal respiratory effort Effort and Inspection: able to speak in complete sentences Auscultation: clear to auscultation bilaterally Cardio regular rate and regular rhythm Palpation: normal PMI Rate: regular rate Rhythm: regular rhythm GI Auscultation: normoactive bowel sounds Palpation: soft and no hepatosplenomegaly external exam normal Extremity no joint enlargement; Negative for normal to inspection, normal capillary refill, no clubbing, cyanosis or edema or no pedal edema General Extremity: normal exam except as noted Skin General Skin Exam: crusts, dry skin and erythema Neuro oriented x3 Psych Appearance: grossly normal Speech: normal speech Thought Content: normal thought content Judgement: judgement good Debridement Note Debridement Note Wound debrided: Left lower leg Type of Debridement: Excisional debridement Anesthesia Used: 5% Lidocaine Gel Depth: Down to and including healthy tissue Percentage of wound debrided: 100 Instrument Used: 7mm curette Tissue Removed: Devitalized tissue fibrin callus Severity: Limited To Skin Breakdown Amount of bleeding with debridement: None Patient tolerated procedure: Patient tolerated procedure well Post-Debridement Measurements and Additional Note: Post-Debridement Measurements/Treatment MARGARITO - Nurse 1 - General Ulcer Assessment Start: 12/13/20 10:06 Freq: Status: Active Protocol: BIANKA Activity Type Activity Date Activity User E-Sign Co-Sign Detail Recorded Client Recorded Date Recorded By Document 12/13/20 10:17 DE [id number] 12/13/20 10:38 DE 12/13/20 10:17 - Today's Visit Information Type of service Initial Visit Arrival Mode Crutches, Wheelchair Patient Identification Verified (Name & Yes ) Vital Signs Temperature (97.8 F-99.1 F) 97.0 F L Temperature Source Temporal Pulse Rate (60-100) 58 L Pulse Location Monitor Respiratory Rate (12-18) 18 Respiratory rate source Ausculation Pulse Oximetry 96 Oxygen Delivery Method Room Air Blood Pressure (90/60-120/80) 138/61 H Blood Pressure Mean 86 Source Monitor Position Sitting Blood Pressure Location Right Arm History Since Last Visit- (Skip if this is Patient's initial visit) Have you changed medications since your No last visit? Any new allergies or adverse reactions No Had a fall/change in ADL's that may No increase risk of falls Signs or symptoms of abuse and/or No neglect since last visit Have you been in the hospital since your No last visit? Has dressing in place as prescribed No Has compression in place as prescribed N/A Has offloadiing in place as prescribed N/A Experienced any changes in pain level or No management Left Footwear Regular Shoe Right Footwear Regular Shoe Pain Scale: 0-10 Numeric Is Patient Pain Free? Yes WC - Nurse 1 - General Ulcer Measurement Start: 12/13/20 10:06 Freq: Status: Active Protocol: Activity Type Activity Date Activity User E-Sign Co-Sign Detail Recorded Client Recorded Date Recorded By Document 12/13/20 10:17 DE [id number] 12/13/20 10:38 DE 12/13/20 10:17 Wound Center Nurse 1 #8 Right Med Calf -Current Size (cm) - Length 8 -Current Size (cm) - Width 4.4 -Current Size (cm) - Depth 0.1 -Total Square Cm 35.2 -Exudate Amt Small -Exudate Type Serosanguineous -Wound Margin Distinct, Outline Attached -Granulation Amt Small (1-33%) -Granulation Quality Rosita -Necrosis Amt None Present (0 %) -Texture (Renata-wound Skin Appearance) Assessed, Scarring -Moisture (Renata-wound Skin Appearance) No Abnormality, Assessed -Color (Renata-wound Skin Appearance) No Abnormality, Assessed -Temperature (Renata-wound Skin No Abnormality Appearance) (Pt Warm) -Tenderness on Palpation (Renata-wound No Skin Appearance) -Ulcer Cleansing Rinsed/ Irrigated with Saline -Foul Odor after Cleansing No -Anesthetic Used 4% Lidocaine Solution #7 left Garcia -Current Size (cm) - Length 2 -Current Size (cm) - Width 1.2 -Current Size (cm) - Depth 0.1 -Total Square Cm 2.4 -Exudate Amt Medium -Exudate Type Serosanguineous -Wound Margin Distinct, Outline Attached -Granulation Amt Small (1-33%) -Granulation Quality Rosita -Necrosis Amt None Present (0 %) -Texture (Renata-wound Skin Appearance) Assessed, Scarring -Moisture (Renata-wound Skin Appearance) Assessed,Dry/ Scaly -Color (Renata-wound Skin Appearance) No Abnormality, Assessed -Temperature (Renata-wound Skin No Abnormality Appearance) (Pt Warm) -Tenderness on Palpation (Renata-wound No Skin Appearance) -Ulcer Cleansing Rinsed/ Irrigated with Saline -Foul Odor after Cleansing No -Anesthetic Used 4% Lidocaine Solution Right Calf (cm) 42 Right Ankle (cm) 23 Left Calf (cm) 40 Left Ankle (cm) 24.5 WC - Nurse 2 - General Ulcer CM Notes Start: 12/13/20 10:06 Freq: Status: Active Protocol: Activity Type Activity Date Activity User E-Sign Co-Sign Detail Recorded Client Recorded Date Recorded By Document 12/13/20 10:55 MW [id number] 12/13/20 11:12 MW 12/13/20 10:55 Wound Center Nurse 2 #9 left medial ankle -Time 11:04 -Correct Patient Yes -Correct Side, Site, Position Yes -Correct Procedure Yes -Procedure Performed Yes -Type of Procedure Debridement -Clinical Debridement Subcutaneous -Tissue Removed Subcutaneous -Post Debridement (cm) - Length 1.0 -Post Debridement (cm) - Width 3.0 -Post Debridement (cm) - Depth 0.1 -Total Square (Post) (cm) 3.00 -Area of Debridement (cm) - Length 1.0 -Area of Debridement (cm) - Width 3.0 -Total Square (Area) (cm) 3.00 -Tunneling No -Undermining/Tunneling No -Circular Undermining No -Wound/Ulcer Outcome Not Healed -Ulcer Cleansing Rinsed/ Irrigated with Saline -Foul Odor after Cleansing No -Bioengineered Tissue No -Bleeding Controlled with Pressure -Offloading No -Treatment Response Procedure Tolerated Well -Debridement - Subq, 1st 20sq cm No #8 Right Med Calf -Time 11:00 -Correct Patient Yes -Correct Side, Site, Position Yes -Correct Procedure Yes -Procedure Performed Yes -Type of Procedure Debridement -Clinical Debridement Subcutaneous -Tissue Removed Subcutaneous -Post Debridement (cm) - Length 0.1 -Post Debridement (cm) - Width 0.1 -Post Debridement (cm) - Depth 0.1 -Total Square (Post) (cm) 0.01 -Area of Debridement (cm) - Length 0.1 -Area of Debridement (cm) - Width 0.1 -Total Square (Area) (cm) 0.01 -Tunneling No -Undermining/Tunneling No -Circular Undermining No -Wound/Ulcer Outcome Not Healed -Ulcer Cleansing Rinsed/ Irrigated with Saline -Foul Odor after Cleansing No -Bioengineered Tissue No -Bleeding Controlled with Pressure -Offloading No -Treatment Response Procedure Tolerated Well -Debridement - Subq, 1st 20sq cm Yes #7 left Garcia -Time 11:01 -Correct Patient Yes -Correct Side, Site, Position Yes -Correct Procedure Yes -Procedure Performed Yes -Type of Procedure Debridement -Clinical Debridement Subcutaneous -Tissue Removed Subcutaneous -Post Debridement (cm) - Length 1.5 -Post Debridement (cm) - Width 1.3 -Post Debridement (cm) - Depth 0.1 -Total Square (Post) (cm) 1.95 -Area of Debridement (cm) - Length 1.5 -Area of Debridement (cm) - Width 1.3 -Total Square (Area) (cm) 1.95 -Tunneling No -Undermining/Tunneling No -Circular Undermining No -Wound/Ulcer Outcome Not Healed -Ulcer Cleansing Rinsed/ Irrigated with Saline -Foul Odor after Cleansing No -Bioengineered Tissue No -Bleeding Controlled with Pressure -Offloading No -Treatment Response Procedure Tolerated Well -Debridement - Subq, 1st 20sq cm No Pain Scale: 0-10 Numeric Is Patient Pain Free? Yes Assessment/Plan Assessment/Plan (1) Atherosclerotic heart disease of [place] coronary artery with other forms of angina pectoris: CODE(S): I25.118 - Atherosclerotic heart disease of [place] coronary artery with other forms of angina pectoris (2) Venous insufficiency: CODE(S): I87.2 - Venous insufficiency (chronic) (peripheral) PLAN: Repeat the venous study from 2020 which shows no blockages which is hard to believe. (3) Bilateral leg edema: CODE(S): R60.0 - Localized edema PLAN: Double layer Tubigrip's (4) Nonhealing nonsurgical wound: CODE(S): T14.8XXA - Other injury of unspecified body region, initial encounter PLAN: Wash lower legs with antibacterial soap and then apply Xeroform dressing to all related areas cover with gauze and Reena and double layer Tubigrip every other day will order home health to come in and do dressing changes .
== END 2020-12-28 23:59 ==
LOC: WC 10:05
PROVIDERS: PCP Family Medicine; Visit Provider Nurse Practitioner
DX: I87.2 Venous insufficiency (chronic) (peripheral) (principal); I25.118 Atherosclerotic heart disease of native coronary artery with other forms of angina pectoris; L97.821 Non-pressure chronic ulcer of other part of left lower leg limited to breakdown of skin; R60.0 Localized edema; T14.8XXS Other injury of unspecified body region, sequela; I50.32 Chronic diastolic (congestive) heart failure; I11.0 Hypertensive heart disease with heart failure; N40.0 Benign prostatic hyperplasia without lower urinary tract symptoms; E78.5 Hyperlipidemia, unspecified; I27.21 Secondary pulmonary arterial hypertension; G47.33 Obstructive sleep apnea (adult) (pediatric); I25.2 Old myocardial infarction; Z86.711 Personal history of pulmonary embolism; Z79.899 Other long term (current) drug therapy; Z79.01 Long term (current) use of anticoagulants; Z79.82 Long term (current) use of aspirin; Z87.891 Personal history of nicotine dependence
CPT/HCPCS: 11042; 99213; G0463

== ENCOUNTER 2020-12-17 07:50 | Observation (INO) | payer MEDICARE, OTHER, SELFPAY ==
[2020-12-17 07:52] VITALS: BP 141/78; PULSE 67; RESP 18; TEMP 36.9; O2SAT 95; BMI 34.8
--- NOTE | 2020-12-17 08:08 | RAD_ITS ---
STUDY: X-RAY CHEST REASON FOR EXAM: Male, 85 years old. Fall TECHNIQUE: Single AP portable view of the chest. COMPARISON: 08/31/2019. FINDINGS: Hypoventilatory changes in the right lung base. No focal infiltrate is seen. There is no demonstrated pleural abnormality. Sternal cerclage wires and vascular clips are present from a prior sternotomy and coronary artery bypass graft procedure (CABG). The cardiac silhouette remains enlarged. Normal mediastinum and donnie. Normal visualized pulmonary arteries. There is atherosclerotic calcification of the aortic arch with tortuosity. Unchanged osseous structures. There is no demonstrated abnormality of the visualized soft tissue structures of the upper abdomen. RAD/Chest 1 View (Portable) IMPRESSION: 1. Enlargement of the cardiac silhouette. 2. Status post CABG. 3. No active pulmonary disease. Electronically Signed: Kunal Interiano MD at 9:13 EDT Tel , Service support ,
--- NOTE | 2020-12-17 08:08 | RAD_ITS ---
STUDY: X-RAY - RIGHT KNEE REASON FOR EXAM: Male, 85 years old. Status post fall TECHNIQUE: 2 view(s) of the knee. COMPARISON: None. FINDINGS: Normal visualized distal femur. Normal visualized proximal tibia and fibula. Normal proximal tibiofibular articulation. There is no demonstrated fracture. There is moderate degenerative arthrosis of the medial femorotibial compartment with moderate joint space narrowing. There is moderate degenerative arthrosis of the lateral femorotibial compartment with moderate joint space narrowing. There is moderate degenerative arthrosis of the patellofemoral articulation. There is no demonstrated joint effusion. There are vascular calcifications. RAD/Knee 1 or 2 Views IMPRESSION: Degenerative arthrosis. No demonstrated acute fracture. Electronically Signed: Kunal Interiano MD at 9:41 EDT Tel , Service support ,
--- NOTE | 2020-12-17 08:08 | CT_ITS ---
STUDY: CT BRAIN WITHOUT CONTRAST REASON FOR EXAM: Male, 85 years old. Formal RADIATION DOSAGE (If Supplied By Facility): CTDIvol = ( 83.33 ) mGy, DLP = ( 1443.21 ) mGycm TECHNIQUE: Transaxial CT imaging of the brain was performed without administration of intravenous contrast material. Individualized dose optimization techniques were used for this CT. COMPARISON: None. FINDINGS: There is no acute bleed or infarct. There are chronic ischemic and atrophic changes. The ventricles are normal in configuration. There is no hydrocephalus. The visualized paranasal sinuses are clear. The mastoid air cells are well aerated. There is no skull fracture. CT/Brain/Head without Contrast IMPRESSION: No acute intracranial abnormality. Chronic ischemic and atrophic changes. Electronically Signed: Gordon Ashton MD at 9:01 EDT Tel , Service support ,
--- NOTE | 2020-12-17 08:08 | RAD_ITS ---
STUDY: X-RAY - PELVIS AND RIGHT HIP REASON FOR EXAM: Male, 85 years old. Status post fall. TECHNIQUE: 3 views of the pelvis and hip. COMPARISON: None. FINDINGS: There is a non-specific bowel gas pattern. Surgical clips in the lower pelvic region. Degenerative changes in the lower lumbar spine. Normal bilateral iliac wings, sacroiliac joints and visualized sacrum. Normal bilateral superior and inferior pubic rami. Normal pubic symphysis. Normal bilateral ischial tuberosities. Status post right hip arthroplasty. Moderate degenerative arthrosis of the left hip. No demonstrated acute fracture. RAD/HIP, UNI W/ Pelvis 2-3 Views IMPRESSION: No demonstrated acute fracture. Electronically Signed: Kunal Interiano MD at 9:19 EDT Tel , Service support ,
--- NOTE | 2020-12-17 08:09 | CT_ITS ---
STUDY: CT ABDOMEN AND PELVIS WITHOUT CONTRAST REASON FOR EXAM: Male, 85 years old. Abdominal pain RADIATION DOSAGE (If Supplied By Facility): CTDIvol = ( 21.94 ) mGy, DLP = ( 1101.81 ) mGycm TECHNIQUE: Transaxial images were obtained from the dome of the diaphragm to the symphysis pubis without oral contrast, and without intravenous contrast. Sagittal and coronal images were reconstructed. Individualized dose optimization techniques were used for this CT. COMPARISON: [id number] FINDINGS: Evaluation of the abdominal viscera is limited in the absence of intravenous contrast. Evaluation is further limited by patient motion and by streak artifact due to the patient''s arms being at his sides.. There is atelectasis at the lung bases. The patient is status post sternotomy. The patient is status post cholecystectomy. The liver demonstrates an unremarkable unenhanced appearance. The spleen is normal in size. The pancreas demonstrates an unremarkable unenhanced appearance. The adrenal glands are within normal limits. There are no renal or ureteral stones. There is no hydronephrosis. There are stable cysts noted in the left kidney. There is a stable hiatal hernia. There is no bowel obstruction or inflammation. There is a large amount of stool in the colon, consistent with constipation. The appendix is visualized and appears normal. The aorta is normal in caliber. There is no abdominal or pelvic free air, free fluid, fluid collection or lymphadenopathy. There are no destructive osseous lesions. There are stable degenerative changes in the spine. The patient is status post right hip arthroplasty. CT/Abdomen/Pelvis without Cont IMPRESSION: Limited study. No acute abdominal or pelvic pathology demonstrated on this noncontrast CT. Constipation. Electronically Signed: Gordon Ashton MD at 9:08 EDT Tel , Service support ,
--- NOTE | 2020-12-17 08:11 | ED.VIS.FALL ---
HPI HPI - Fall History of Present Illness Chief Complaint: Fall Informant: patient Occured/Mechanism Occurred: Today Narrative Narrative: Patient presents secondary to fall. He states he was trying to go to his chair when he lost his balance and fell, unable to catch himself. He complains of right flank pain and right knee pain. Patient is on anticoagulants secondary to history of DVT and PE. He denies striking his head or loss of consciousness. 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 Delayed wound healing Essential (primary) hypertension Family history of hypertension Foraminal stenosis of lumbar region Glaucoma History of pulmonary embolism Hyperlipidemia Hypomagnesemia [facility] use of drug Lumbar spinal stenosis Malnutrition NSTEMI (non-ST elevated myocardial infarction) (05/2018) KARAN (obstructive sleep apnea) Other specified peripheral vascular diseases Precordial chest pain Pulmonary embolism Pulmonary embolism with acute cor pulmonale (09/2018) Pulmonary hypertension Right pulmonary embolus Secondary pulmonary arterial hypertension Stroke Tricuspid valve disorder Ulcer of left lower extremity with fat layer exposed Ulcer of right lower extremity with fat layer exposed Venous insufficiency Home Medications metoprolol succinate 50 mg PO DAILY 06/23/13 [History Last Taken 08/31/19] magnesium oxide 400 mg (241.3 mg magnesium) tablet 400 mg PO DAILY tab 05/08/17 [History Last Taken 08/29/19] tamsulosin 0.4 mg capsule 0.4 mg PO DAILY 30 Days #30 12/05/17 [History Last Taken 08/31/19] folic acid 0.4 mg PO DAILY@0800 05/10/18 [History Last Taken 08/31/19] nitroglycerin 0.4 mg SL Q5M PRN tab.subl 10/13/18 [Rx Last Taken 08/31/19] atorvastatin 40 mg tablet 40 mg PO QHS #90 tab 12/11/18 [Rx Last Taken 08/29/19] finasteride 5 mg tablet 5 mg PO DAILY #30 tab 12/11/18 [History Last Taken 08/31/19] hydrocodone-acetaminophen 5-325mg 5mg-325mg 1 tab PO BID PRN PRN #84 tab 12/11/18 [History Last Taken 08/31/19] pantoprazole 20 mg tablet,delayed release 40 mg PO DAILY #60 tab 12/11/18 [History Last Taken 08/31/19] aspirin 81 mg PO DAILY@0800 08/31/19 [History Last Taken 08/31/19] cetirizine 10 mg PO DAILY 08/31/19 [History Last Taken 08/31/19] furosemide 40 mg PO DAILY 08/31/19 [History Last Taken 08/30/19] apixaban 5 mg tablet 5 mg PO BID tab 12/30/19 [History Last Taken Unknown] isosorbide mononitrate 60 mg tablet,extended release 24 hr 60 mg PO DAILY tablet 07/06/20 [History Last Taken Unknown] cephalexin 500 mg capsule 500 mg PO .QID cap 12/06/20 [History Last Taken Unknown] Allergy/AdvReac Type Severity Reaction Status Date / Time diazepam [From Valium] Allergy Intermediate Other Verified 12/17/20 07:56 morphine Allergy Intermediate Other Verified 12/17/20 07:56 Family History Father , Unknown cause No problems noted. Mother Cancer Brother Throat cancer Brother COPD (chronic obstructive pulmonary disease) Brother , unknown cause No problems noted. Sister COPD (chronic obstructive pulmonary disease) Heart disease Sister COPD (chronic obstructive pulmonary disease) Other Debility Surgical History H/O coronary artery bypass surgery (09/12/00) History of coronary artery stent placement (05/19/18) History of repair of hiatal hernia Social History Smoking Status: Former smoker pack-years: 15 ROS ROS ED Constitutional Constitutional ED: Denies chills or fever(s) Eyes Eyes: Denies change in vision ENT ENT ED: Denies sore throat Cardiovascular Cardiovascular: Denies chest pain Respiratory/Chest Respiratory/Chest: Denies cough or dyspnea Gastrointestinal Gastrointestinal: Reports abdominal pain; Denies diarrhea, nausea or vomiting Genitourinary Genitourinary ED: Denies dysuria Musculoskeletal Musculoskeletal: Reports back pain Integumentary Denies rash Neurologic Neurologic: Denies headache(s) or weakness Allergic/Immunologic Allergic/Immunologic ED: Denies urticaria EXAM Physical Exam Const Vital Signs: 12/17/20 07:52 12/17/20 08:32 12/17/20 11:09 Temperature 98.4 F Temperature Source Oral Pulse Rate 67 69 Respiratory Rate 18 18 Respiratory Effort Normal Blood Pressure 141/78 H 141/67 H Blood Pressure Mean 99 91 Pulse Ox 95 94 Oxygen Delivery Method Room Air Room Air Room Air Positive well nourished and well developed General Appearance ED: well developed HEENT Reports normocephalic and head/scalp atraumatic Eyes PERRL and EOMs intact bilaterally Neck supple Chest Wall inspection of chest normal and palpation of chest normal Resp normal respiratory effort and clear to auscultation bilaterally Cardio regular rate and regular rhythm GI Palpation: soft and tender other (Tenderness palpation right mid abdomen. No overlying ecchymoses.) Back/Spine General Back: CVA tenderness right Extremity normal to inspection Extremity Narrative: Tenderness location of the anterior right knee. No significant edema. Neuro oriented x3 Sensorium / Orientation: alert Psych mental status grossly normal Skin no rashes or lesions noted MDM MDM MDM Narrative Medical decision making narrative: Lab work, CT scan, x-rays obtained. Lab Data Attestation: I reviewed the patient's lab results. Labs: Laboratory Results - last 24 hr 12/17/20 12/17/20 12/17/20 08:23 08:23 11:25 WBC 6.7 RBC 4.59 L Hgb 13.8 Hct 43.8 MCV 95.4 H MCH 30.1 MCHC 31.5 L RDW Std Deviation 59.3 H RDW Coeff of Karen 16.9 H Plt Count 202 MPV 10.5 Immature Gran % (Auto) 0.100 Neut % (Auto) 47.9 Lymph % (Auto) 41.8 H [place] % (Auto) 7.6 Eos % (Auto) 2.2 Baso % (Auto) 0.4 Absolute Neuts (auto) 3.2 Absolute Lymphs (auto) 2.81 Nucleated RBC % 0 Sodium 138 Potassium 4.4 Chloride 106 Carbon Dioxide 29.0 Anion Gap 3 L BUN 25 H Creatinine 1.49 H Estim Creat Clear Calc 34.50 Est GFR (MDRD) Af Amer 58 L Est GFR (MDRD) Non-Af 48 L BUN/Creatinine Ratio 16.8 Glucose 98 Calcium 9.1 Total Bilirubin 0.80 Direct Bilirubin 0.19 AST 54 H ALT 48 Alkaline Phosphatase 84 Total Protein 8.6 H Albumin 3.0 L Globulin 5.6 H Urine Color Yellow Urine Clarity Clear Urine pH 8.0 Ur Specific [place] 1.010 Urine Protein Negative Urine Glucose (UA) Normal Urine Ketones Negative Urine Occult Blood Negative Urine Nitrite Negative Urine Bilirubin Negative Urine Urobilinogen 4 H Ur Leukocyte Esterase Negative Urine RBC 0 SEEN Urine WBC 0 SEEN Ur Squamous Epith Cells 0-5 SEEN Urine Bacteria 0 SEEN Urine Mucus 0 SEEN Radiography Diagnostic Testing: Radiology Impression Brain CT 12/17/20 08:08 IMPRESSION: No acute intracranial abnormality. Chronic ischemic and atrophic changes. Electronically Signed: Gordon Ashton MD at 9:01 EDT Tel , Service support , Chest X-Ray 12/17/20 08:08 IMPRESSION: 1. Enlargement of the cardiac silhouette. 2. Status post CABG. 3. No active pulmonary disease. Electronically Signed: Kunal Interiano MD at 9:13 EDT Tel , Service support , Hip/Pelvis X-Ray 12/17/20 08:08 IMPRESSION: No demonstrated acute fracture. Electronically Signed: Kunal Interiano MD at 9:19 EDT Tel , Service support , Knee X-Ray 12/17/20 08:08 IMPRESSION: Degenerative arthrosis. No demonstrated acute fracture. Electronically Signed: Kunal Interiano MD at 9:41 EDT Tel , Service support , Abdomen/Pelvis CT 12/17/20 08:09 IMPRESSION: Limited study. No acute abdominal or pelvic pathology demonstrated on this noncontrast CT. Constipation. Electronically Signed: Gordon Ashton MD at 9:08 EDT Tel , Service support , Treatment and Re-Evaluation Comments:: Patient's lab work and urinalysis unremarkable. Chest x-ray per my interpretation reveals chronic changes. Right knee x-ray shows chronic arthritis but no obvious fracture. Right hip and pelvis x-ray shows no obvious fracture. Radiologist interpretations are reviewed. Patient was given a dose of [place] which he takes at home for pain. Following this nursing staff attempted to get him up but he is unable to move well or ambulate. He will require probable rehab before returning home. This was discussed with the patient at bedside and he is in agreement. I will speak with the hospitalist. Discharge Plan Triage Chief Complaint: Fall ED Provider: Ruth Farnsworth Dx/Rx/DC Orders Clinical Impression: Fall, Unable to ambulate Prescriptions: No Action magnesium oxide 400 mg tablet 400 mg PO DAILY RF: 0 tamsulosin 0.4 mg capsule 0.4 mg PO DAILY 30 Days Qty: 30 RF: 0 pantoprazole 20 mg tablet,delayed release (DR/EC) 40 mg PO DAILY Qty: 60 RF: 0 finasteride 5 mg tablet 5 mg PO DAILY Qty: 30 RF: 0 hydrocodone-acetaminophen 5-325 mg tablet 1 tab PO BID PRN PRN (Reason: pain) Qty: 84 RF: 0 atorvastatin 40 mg tablet 40 mg PO QHS Qty: 90 RF: 3 isosorbide mononitrate 60 mg tablet extended release 24 hr 60 mg PO DAILY RF: 0 apixaban 5 mg tablet 5 mg PO BID RF: 0 cephalexin 500 mg capsule 500 mg PO .QID RF: 0 metoprolol succinate 50 MG tablet 50 mg PO DAILY RF: 0 folic acid 0.4 MG tablet 0.4 mg PO DAILY@0800 RF: 0 nitroglycerin 0.4 MG tablet, sublingual 0.4 mg SL Q5M PRN (Reason: Cardiac/Chest Pain) RF: 0 cetirizine 10 MG tablet 10 mg PO DAILY RF: 0 furosemide 40 MG tablet 40 mg PO DAILY RF: 0 aspirin 81 MG tablet,delayed release (DR/EC) 81 mg PO DAILY@0800 RF: 0 Primary Care Provider: Calderon Ramirez Referrals: Calderon Ramirez MD [Primary Care Provider] - Disposition Disposition: Acute Care Hospital [facility]
[2020-12-17 08:34] LABS: Absolute Lymphocyte Count 2.81 X10^3/uL (0.83-4.51); Absolute Neutrophil Count 3.2 X10^3/uL (2.0-7.7); Basophil# 0.03 X10^3/uL; Basophil% 0.4 % (0-1); Eosinophil# 0.15 X10^3/uL; Eosinophils% 2.2 % (0-5); Hematocrit 43.8 % (40-54); Hemoglobin 13.8 g/dL (13.0-16.5); Lymphocyte # 2.81 X10^3/ul (0.83-4.51); Lymphocyte % 41.8 % (19-41); Mean Corp Hgb Conc 31.5 g/dL (32-36); Mean Corpuscular Hgb 30.1 pg (27.0-32.0); Mean Corpuscular Volume 95.4 fL (80-94); Mean Platelet Vol. 10.5 fl (6.2-12.0); Monocyte# 0.51 X10^3/uL; Monocyte% 7.6 % (0-10); NRBC Flagged by Analyzer 0 % (0-5); Neutrophil # 3.21 X10^3/uL (2.7-7.7); Neutrophil % 47.9 % (47-70); Platelet Count 202 K/mm3 (150-450); RBC Distribution Width CV 16.9 % (11.6-14.6); RBC Distribution Width SD 59.3 fl (35.1-43.9); Red Blood Count 4.59 M/mm3 (4.6-6.2); White Blood Count 6.7 K/mm3 (4.4-11.0)
[2020-12-17 08:49] LABS: AST(SGOT) 54 U/L (15-37); Alanine Aminotransfer ALT/SGPT 48 U/L (16-61); Alkaline Phosphatase 84 U/L (45-117); Anion Gap 3 (5-15); BUN 25 mg/dL (7-18); BUN/Creat Ratio 16.8 RATIO (10-20); Bilirubin, Direct 0.19 mg/dL (0.00-0.30); Calcium,Total 9.1 mg/dL (8.5-10.1); Chloride 106 mmol/L (98-107); Creatinine, Serum 1.49 mg/dL (0.70-1.30); EST Glomerular Filtration Rate 48 mL/min (>60); Est Glom Filt Rate - Afr Amer 58 mL/min (>60); Globulin 5.6 g/dL (2.2-4.2); Glucose 98 mg/dL (74-106); Potassium 4.4 mmol/L (3.5-5.1); Protein, Total 8.6 g/dL (6.4-8.2); Sodium Level 138 mmol/L (136-145)
[2020-12-17 11:09] VITALS: BP 141/67; PULSE 69; RESP 18; O2SAT 94
[2020-12-17] MEDS: HYDROcodone Bitartrate/Apap 5/325 Tablet PO (11:09)
[2020-12-17 11:37] LABS: Bacteria 0 SEEN /hpf (None Seen); Mucous, Urine 0 SEEN /hpf (<or=2+); Red Blood Cells-Urine 0 SEEN /hpf (0-5); White Blood Cells 0 SEEN /hpf (0-5)
[2020-12-17 11:39] LABS: Color, Urine Yellow (Yellow); Glucose, Dipstick Normal (Normal); Ketone-Dipstick Negative (Negative); Leukocyte Esterase-Dipstick Negative /ul (Negative); Nitrite-Dipstick Negative (Negative); Occult Blood-Urine Negative /ul (Negative); Protein-Dipstick Negative (Negative); Urine Bilirubin Dipstick Negative (Negative); Urine Clarity Clear (Clear); Urine Urobilinogen 4 mg/dl (Normal)
[2020-12-17 11:45] LABS: Squamous Epithelial Cells - UA 0-5 SEEN /hpf (0-5)
--- NOTE | 2020-12-17 12:00 | ED.RN ---
with assistance of medic, sat pt up in bed, assisted pt to standing. pt weak and unsteady.
--- NOTE | 2020-12-17 12:32 | HP.PCM.HOS_ITS ---
[facility] - General General Date of Admission: 12/17/20 Date of Service: 12/17/20 Chief Complaint: Fall, inability to get up HPI Narrative LOVELY SINGH, is a 85 M who presents after a fall. Patient at baseline ambulates with a walking stick. He also has a walker if he has to walk outside the house for longer distances. If he has a doctor's appointment he usually goes with the wound care. He was at home, got up to walk to the counter and 10 down the condition when his legs gave up and he felt himself falling. He tried to catch his fall but could not. He complains of pain in the right side of the body. He denied any recent illness or dizziness of palpitations or chest pain prior to the fall. His vitals in the ED has been stable. His imaging has been unremarkable. 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 Delayed wound healing Essential (primary) hypertension Family history of hypertension Foraminal stenosis of lumbar region Glaucoma History of pulmonary embolism Hyperlipidemia Hypomagnesemia snf use of drug Lumbar spinal stenosis Malnutrition NSTEMI (non-ST elevated myocardial infarction) (05/2018) KARAN (obstructive sleep apnea) Other specified peripheral vascular diseases Precordial chest pain Pulmonary embolism Pulmonary embolism with acute cor pulmonale (09/2018) Pulmonary hypertension Right pulmonary embolus Secondary pulmonary arterial hypertension Stroke Tricuspid valve disorder Ulcer of left lower extremity with fat layer exposed Ulcer of right lower extremity with fat layer exposed Venous insufficiency Home Medications metoprolol succinate 50 mg PO DAILY 06/23/13 [History Last Taken 08/31/19] magnesium oxide 400 mg (241.3 mg magnesium) tablet 400 mg PO DAILY tab 05/08/17 [History Last Taken 08/29/19] tamsulosin 0.4 mg capsule 0.4 mg PO DAILY 30 Days #30 12/05/17 [History Last Taken 08/31/19] folic acid 0.4 mg PO DAILY@0800 05/10/18 [History Last Taken 08/31/19] nitroglycerin 0.4 mg SL Q5M PRN tab.subl 10/13/18 [Rx Last Taken 08/31/19] atorvastatin 40 mg tablet 40 mg PO QHS #90 tab 12/11/18 [Rx Last Taken 08/29/19] finasteride 5 mg tablet 5 mg PO DAILY #30 tab 12/11/18 [History Last Taken 0 08/31/19] hydrocodone-acetaminophen 5-325mg 5mg-325mg 1 tab PO BID PRN PRN #84 tab 12/11/18 [History Last Taken 08/31/19] pantoprazole 20 mg tablet,delayed release 40 mg PO DAILY #60 tab 12/11/18 [Hist ory Last Taken 08/31/19] aspirin 81 mg PO DAILY@0800 08/31/19 [History Last Taken 08/31/19] cetirizine 10 mg PO DAILY 08/31/19 [History Last Taken 08/31/19] furosemide 40 mg PO DAILY 08/31/19 [History Last Taken 08/30/19] apixaban 5 mg tablet 5 mg PO BID tab 12/30/19 [History Last Taken Unknown] isosorbide mononitrate 60 mg tablet,extended release 24 hr 60 mg PO DAILY tablet 07/06/20 [History Last Taken Unknown] cephalexin 500 mg capsule 500 mg PO .QID cap 12/06/20 [History Last Taken Unknown] Allergy/AdvReac Type Severity Reaction Status Date / Time diazepam [From Valium] Allergy Intermediate Other Verified 12/17/20 07:56 morphine Allergy Intermediate Other Verified 12/17/20 07:56 Family History Father , Unknown cause No problems noted. Mother Cancer Brother Throat cancer Brother COPD (chronic obstructive pulmonary disease) Brother , unknown cause No problems noted. Sister COPD (chronic obstructive pulmonary disease) Heart disease Sister COPD (chronic obstructive pulmonary disease) Other Debility Surgical History H/O coronary artery bypass surgery (09/12/00) History of coronary artery stent placement (05/19/18) History of repair of hiatal hernia Social History (Updated 12/17/20 @ 14:[address] Kelsey Fuentes MD) household members: spouse and family Smoking Status: Former smoker pack-years: 15 alcohol intake: current substance use type: does not use ROS ROS Narrative Constitutional: Denies: Anorexia, Chills, Fever, Night Sweats, Weight Change, Malaise, Weakness, Fatigue. Eyes: Denies: Blurred vision, Cataracts, Conjunctivae Inflammation, Pain, Redness, Vision Change HEENT: Denies: Difficulty Hearing, Difficulty Swallowing, Head Aches, Hearing Changes, Sinus Congestion, Sinus Drainage Cardiovascular: Denies: Chest Pain, Orthopnea, Palpitations Respiratory: Denies: Cough, Shortness of breath at rest, Sputum production Gastrointestinal: Denies: Abdominal Pain, Nausea, Vomiting Genitourinary: Denies: Dysuria Musculoskeletal: Denies: Joint Pain, Joint stiffness, Joint swelling, Joint Tenderness Skin: Denies: Rash, Wounds Neurological: Denies: Numbness, Tingling, Focal weakness Vital Signs Vital Signs Vital Signs: 12/17/20 07:52 12/17/20 08:32 12/17/20 11:09 Temperature 98.4 F Temperature Source Oral Pulse Rate 67 69 Respiratory Rate 18 18 Respiratory Effort Normal Blood Pressure 141/78 H 141/67 H Blood Pressure Mean 99 91 Pulse Ox 95 94 Oxygen Delivery Method Room Air Room Air Room Air Weight Weight: 100.8 kg Body Mass Index (BMI) 34.8 Physical Exam Narrative Physical exam: General: Alert, Oriented x3, Cooperative, No apparent distress, appears frail HEENT: Atraumatic Oral: Moist Mucosa Neck: Supple Lungs: Clear to auscultation Cardiovascular: HS I+II, regular, no murmurs Abdomen: Bowel Sounds Present, Soft, Non Tender Extremities: Bilateral leg edema +1, chronic wounds on the leg Results Lab / Micro Data Result Diagrams: 12/17/20 08:23 12/17/20 08:23 Labs: Laboratory Results - last 24 hr 12/17/20 08:23: WBC 6.7, RBC 4.59 L, Hgb 13.8, Hct 43.8, MCV 95.4 H, MCH 30.1, MCHC 31.5 L, RDW Std Deviation 59.3 H, RDW Coeff of Karen 16.9 H, Plt Count 202, MPV 10.5, Immature Gran % (Auto) 0.100, Neut % (Auto) 47.9, Lymph % (Auto) 41.8 H, [place] % (Auto) 7.6, Eos % (Auto) 2.2, Baso % (Auto) 0.4, Absolute Neuts (auto) 3.2, Absolute Lymphs (auto) 2.81, Nucleated RBC % 0 12/17/20 08:23: Sodium 138, Potassium 4.4, Chloride 106, Carbon Dioxide 29.0, Anion Gap 3 L, BUN 25 H, Creatinine 1.49 H, Estim Creat Clear Calc 34.50, Est GFR (MDRD) Af Amer 58 L, Est GFR (MDRD) Non-Af 48 L, BUN/Creatinine Ratio 16.8, Glucose 98, Calcium 9.1, Total Bilirubin 0.80, Direct Bilirubin 0.19, AST 54 H, ALT 48, Alkaline Phosphatase 84, Total Protein 8.6 H, Albumin 3.0 L, Globulin 5.6 H 12/17/20 11:25: Urine Color Yellow, Urine Clarity Clear, Urine pH 8.0, Ur Specific [place] 1.010, Urine Protein Negative, Urine Glucose (UA) Normal, Urine Ketones Negative, Urine Occult Blood Negative, Urine Nitrite Negative, Urine Bilirubin Negative, Urine Urobilinogen 4 H, Ur Leukocyte Esterase Negative, Urine RBC 0 SEEN, Urine WBC 0 SEEN, Ur Squamous Epith Cells 0-5 SEEN, Urine Bacteria 0 SEEN, Urine Mucus 0 SEEN Radiology Impression Brain CT 12/17/20 08:08 IMPRESSION: No acute intracranial abnormality. Chronic ischemic and atrophic changes. Electronically Signed: Gordon Ashton MD at 9:01 EDT Tel , Service support , Chest X-Ray 12/17/20 08:08 IMPRESSION: 1. Enlargement of the cardiac silhouette. 2. Status post CABG. 3. No active pulmonary disease. Electronically Signed: Knual Interiano MD at 9:13 EDT Tel , Service support , Hip/Pelvis X-Ray 12/17/20 08:08 IMPRESSION: No demonstrated acute fracture. Electronically Signed: Kunal Interiano MD at 9:19 EDT Tel , Service support , Knee X-Ray 12/17/20 08:08 IMPRESSION: Degenerative arthrosis. No demonstrated acute fracture. Electronically Signed: Kunal Interiano MD at 9:41 EDT Tel , Service support , Abdomen/Pelvis CT 12/17/20 08:09 IMPRESSION: Limited study. No acute abdominal or pelvic pathology demonstrated on this noncontrast CT. Constipation. Electronically Signed: Gordon Ashton MD at 9:08 EDT Tel , Service support , Assessment & Plan Assessment/Plan (1) Fall: QUALIFIERS: Encounter type: initial encounter Qualified Code(s): W19.XXXA - Unspecified fall, initial encounter (2) Unable to ambulate: PLAN: 1. Acute fall, patient walks with a cane/walker/wheelchair dependent distances Reports that knees gave up and he could not catch his fall Inability to ambulate this is chronic, unclear etiology imaging shows no acute fracture Will check a cervical, thoracic and lumbar spine x-ray PT/OT to evaluate and treat Social work for discharge planning to subacute ADITYA, prerenal, in a patient with baseline creatinine of 1, secondary to dehydration and sepsis, would continue IV fluids, repeat BMP in a.m. If patient remains unable to ambulate, consider MRI of the spine 2. Bilateral leg ulcers, venous, follows with wound clinic Consult wound RN 3. Rest of his chronic medical conditions include hypertension, hyperlipidemia, previous history of PE, CAD status post CABG, status post stent/pulmonary hypertension, KARAN-stable for now Home meds reviewed Patient follows with cardiology and from neurology in the outpatient I discussed and explained in details the various types of CODE STATUS-full code, DNR CCA, DNR CC. Patient could not decide on what she wants in the event of a c ardiopulmonary arrest. He asked for time to think about it Time spent discussing CODE STATUS 18 minutes Charges/Coding Visit Charges Inpatient E&M: 14633 Init Hosp L3 Procedures Hospitalists Procedures: 58545 Advncd Care Plan 30 Min
[2020-12-17 12:43] VITALS: BP 125/56; PULSE 62; RESP 21; TEMP 37.1; O2SAT 96
[2020-12-17 14:23] VITALS: BP 143/65; PULSE 52; RESP 18; TEMP 36.6; O2SAT 100
[2020-12-17 14:26] VITALS: BMI 33.5
[2020-12-17 15:10] LABS: International Normalized Ratio 1.1
[2020-12-17] MEDS: 0.9% Normal Saline 1,000 ML 75 ML IV (16:51)
[2020-12-17] MEDS: 0.9% Saline Lock 10 ML Syringe IV (16:51)
[2020-12-17] MEDS: APIXABAN 5 MG TABLET PO (19:32)
[2020-12-17] MEDS: Acetaminophen 325 MG Tablet 650 MG PO (19:33)
[2020-12-17 20:00] VITALS: O2SAT 95
[2020-12-17 20:23] VITALS: BP 117/57; PULSE 66; RESP 18; TEMP 36.6; O2SAT 100
--- NOTE | 2020-12-17 22:49 | NURSING ---
1900 pandemic documentation
[2020-12-18] MEDS: cycloBENZAPRine HCl 5 MG TABLET PO (02:20)
[2020-12-18 02:23] VITALS: BP 137/61; PULSE 68; RESP 18; TEMP 36.9; O2SAT 97
--- NOTE | 2020-12-18 05:07 | NURSING ---
pt refused to have his blood drawn
[2020-12-18] MEDS: 0.9% Normal Saline 1,000 ML 75 ML IV (05:11)
[2020-12-18 07:45] VITALS: O2SAT 94
--- NOTE | 2020-12-18 08:02 | WOUNDNOTE ---
Was asked to see patient for wounds to bilateral lower legs. removed GEOVANNA wraps and dressings. no drainage noted. no open wounds noted. there are some areas of pink skin, but wounds appear to be healed. washed legs and feet with soap and water. pat dry. skin is very dry and flaky. applied aloe vesta. wrapped with kerlix. reapplied the GEOVANNA wraps from the base of the toes to just below the knees. pt tolerated well. see skin photos.
--- NOTE | 2020-12-18 08:11 | WOUNDNOTE ---
skin photo: bilateral lower legs
[2020-12-18 08:25] VITALS: BP 135/62; PULSE 71; RESP 18; TEMP 37.1; O2SAT 97
[2020-12-18] MEDS: APIXABAN 5 MG TABLET PO ×2 (10:06→21:12)
--- NOTE | 2020-12-18 11:05 | CASEMGMT ---
Addendum entered by Concha Rdz 12/18/20 12:14: Specialist: Dr. [facility], Dr. [facility]a [facility] Addendum entered by Concha Rdz 12/18/20 11:58: Pt's Marie now present at [facility]. SW in to speak with pt and Marie. Marie states pt's Pharmacy is [facility] and pt utilizes [employer] for transportation. Marie states pt is active with [facility] and RN was through [place], started last Friday. SW spoke with pt and Marie about discharge plans. Pt states at this time his preference is to return home. SW informed pt and Marie that PT/OT will work with pt and make recommendations. SW explained that if pt is requiring a lot of assistance, going back home may not be a safe option. Marie and pt state understanding. SW informed pt and Marie that this worker will await recommendations from PT/OT and will continue discussion of SNF plans later. Per assessment earlier, pt also denied any Substance Abuse and Mental Health Hx. SW to continue to follow, will await PT/OT recommendations Original Note: Social Work Assessment Referral Date: 12/17/2020 Date of Assessment: 12/18/2020 Reason for consult: Likely SNF placement Informant: Personal Status: SW met with pt to complete initial assessment. Pt is alert and orientated x3. SW introduced self and role at [facility]. Living Arrangements: Pt states that he lives with his Marie in a one story home with a Ramp to enter. DME: Cane, walker, lift chair ADLs: Dependent. Pt states pt's Marie is older than him and not able to assist. Pt states that he is able to ambulate, go to the bathroom on his own. Pt states the [facility] was supposed to start bathing him today too. Pt states that he and his were looking to getting someone to clean the house. Transportation: Pt states for doctor's appointments he uses wheelchair van transportation, pt unable to recall name of transportation company. PCP: Dr. Ramirez Pharmacy: Unable to recall name of Pharmacy HHC: Pt states that he has HHC that started yesterday. Pt unable to remember name of the agency. SNF: None, but then states was at [facility] in the past Community Resources: Pt states that he gets [employer], pt states he doesn't think he has a CM through [facility] SW spoke with pt about discharge plans, recommendation of SNF. Pt states that his used to work at [employer] and then states he was at [facility] in the past. SW asked pt if he would be agreeable to any of those SNF and pt states I don't know. Pt states that his will be in at [facility] at some point today. SW informed pt that this worker will come back to speak with him regarding SNF when his arrives. Pt states understanding. Patient was provided a list of SNF providers including quality and resource use data and consistent with the patient?s preferred geographic region, medical needs, and insurance network. Plan: Likely SNF, waiting to speak with pt when his arrives Concha Rdz MSW, [employer]
--- NOTE | 2020-12-18 11:46 | CASEMGMT ---
Notified Daryl in [facility] that pt is admitted.
[2020-12-18] MEDS: HYDROcodone Bitartrate/Apap 5/325 Tablet PO (13:15)
[2020-12-18] MEDS: Polyethylene Glycol 3350 17 GM PACKET PO (13:16)
--- NOTE | 2020-12-18 13:40 | PCM.PN.HOSP ---
Subjective Subjective Patient states he is feeling fine at this time. He is frustrated as he slid down in bed and is making it more difficult for him to eat. He does ask for his home [place] and MiraLA[place] to be started again. Family has requested that the bilateral lower extremity Dopplers that were ordered as an outpatient be done here for his lower extremity edema. Objective Data Objective Data Vital Signs: Vital Signs Temp Pulse Resp BP Pulse Ox 98.7 F 71 18 135/62 H 97 12/18/20 08:25 12/18/20 08:25 12/18/20 08:25 12/18/20 08:25 12/18/20 08:25 Oxygen Delivery Method Room Air Weight: 98.1 kg Body Mass Index (BMI) 33.5 Intake & Output: Intake and Output for Last 24 Hours 12/16/20 12/17/20 12/18/20 23:59 23:59 23:59 Intake Total 1725 / 1725 Output Total 925 / 925 Balance 800 / 800 Lab / Micro Data Result Diagrams: 12/17/20 08:23 12/17/20 08:23 Labs: Laboratory Results - last 24 hr 12/17/20 14:08: PT 14.0, INR 1.1 Physical Exam Const alert, oriented x3 and no apparent distress Constitutional Narrative: Overweight -[place]yr[place] male sitting up in bed eating breakfast, appears comfortable and nontoxic, also watching television Exam Limitations: no limitations HEENT head/scalp atraumatic Head and Scalp: normocephalic Resp normal respiratory effort, no retractions, no use of accessory muscles and clear to auscultation bilaterally Auscultation: Negative for crackles, rales, rhonchi or wheezes Cardio regular rate, S1 normal heart sound, S2 normal heart sound, no murmurs, no rub, no gallops, no clicks and no JVD GI normal to inspection, nondistended, normoactive bowel sounds, soft to palpation, non-tender and non-distended Extremity Extremity Narrative: Bilateral lower extremity pitting edema, dressings in place General Extremity: edema Peripheral Pulses: Yes pulses 2+ throughout Skin no rashes or lesions noted, skin turgor normal, no jaundice, no petechiae and no mottling Skin Narrative: Bilateral lower extremity wounds with dressings in place Neuro oriented x3 and moves all extremities Neuro Narrative: Generalized weakness Sensorium / Orientation: awake and alert Assessment & Plan Assessment/Plan (1) Fall: QUALIFIERS: Encounter type: initial encounter Qualified Code(s): W19.XXXA - Unspecified fall, initial encounter (2) Unable to ambulate: (3) Edema: (4) Nonhealing nonsurgical wound: PLAN: Fall/debility -Prior to admission patient states his knees gave out and he can catch his fall -Patient has had chronic issues with ambulation -PT/OT evaluation in progress -X-ray showed degenerative disease -Urine culture is unimpressive -Patient may need placement at discharge ADITYA on CKD stage IIIa -Continue IV fluids at 75 cc/h -Repeat BMP in the a.m. -If serum creatinine has normalized with discontinue IV fluids tomorrow -Baseline serum creatinine appears to be 1.2-1.3 Bilateral lower extremity edema -Bilateral lower extremity ultrasounds are pending -Suspect this is likely chronic Bilateral lower extremity wounds with delayed wound healing -Continue wound care after discharge -Wound care consultation while patient is hospitalized here -Continue his home [place] for his pain BPH -Continue Proscar -Continue Flomax GERD -Continue PPI CAD/HTN/HPL -Continue home medications History of stroke -Continue aspirin History of pulmonary emboli -Continue Eliquis HFpEF-compensated -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
--- NOTE | 2020-12-18 14:41 | CHAPLAIN ---
Type of Pastoral Visit _x__ Initial Visit ___ Follow-up Visit ___ On-call Visit ___ General Patient Visit ___ Spiritual Assessment ___ Family Conference ___ Bereavement ___ Rapid Response ___ Code Blue ___ Other (describe below) Pastoral Care Referral From _x__ Patient ___ Family ___ Nurse ___ Physician ___ Talent Management Specialist ___ Gusset Ripper ___ Other (describe below) Sacrament/Intervention _x__ Active listening ___ Anointing ___ Hoahaoism ___ Bereavement ___ Communion _x__ Olivia exploration ___ ___ Life review _x__ Prayer ___ Reconciliation ___ Sacrament of Sick _x__ Supportive presence ___ Wedding ___ Other (describe below) Pastoral Comments patient wants spiritual care support and expresses his olivia in God during life and in current situation; spouse at bedside; presence and prayer
[2020-12-18 15:29] VITALS: BP 133/55; PULSE 113; RESP 18; TEMP 37; O2SAT 98
--- NOTE | 2020-12-18 16:12 | CASEMGMT ---
HOOD CM in to discuss HSU form with patient. RN CM explained HSU form, patient voiced understanding. Pt signed form and filed in chart. Pt provided with a copy of signed HSU form. Patient had no further questions or concerns at this time.
[2020-12-18 21:11] VITALS: BP 131/69; PULSE 68; RESP 18; TEMP 37.4; O2SAT 98
[2020-12-18 21:12] VITALS: BP 131/69; PULSE 68
[2020-12-18] MEDS: Metoprolol(XL)Succ 50 MG Tablet PO (21:12)
--- NOTE | 2020-12-18 23:42 | PCS.PANDOC ---
PANDEMIC DOCUMENTATION INITIATED: Date: 11/13/2020 Time: 190
[2020-12-19 03:20] VITALS: BP 130/61; PULSE 58; RESP 18; TEMP 36.8; O2SAT 100
[2020-12-19 07:29] LABS: Absolute Lymphocyte Count 3.04 X10^3/uL (0.83-4.51); Absolute Neutrophil Count 3.1 X10^3/uL (2.0-7.7); Basophil# 0.03 X10^3/uL; Basophil% 0.4 % (0-1); Eosinophil# 0.22 X10^3/uL; Eosinophils% 3.1 % (0-5); Hematocrit 39.8 % (40-54); Hemoglobin 12.9 g/dL (13.0-16.5); Lymphocyte # 3.04 X10^3/ul (0.83-4.51); Lymphocyte % 43.2 % (19-41); Mean Corp Hgb Conc 32.4 g/dL (32-36); Mean Corpuscular Hgb 30.7 pg (27.0-32.0); Mean Corpuscular Volume 94.8 fL (80-94); Mean Platelet Vol. 10.9 fl (6.2-12.0); Monocyte# 0.62 X10^3/uL; Monocyte% 8.8 % (0-10); NRBC Flagged by Analyzer 0 % (0-5); Neutrophil # 3.11 X10^3/uL (2.7-7.7); Neutrophil % 44.4 % (47-70); Platelet Count 170 K/mm3 (150-450); RBC Distribution Width CV 16.4 % (11.6-14.6); RBC Distribution Width SD 57.2 fl (35.1-43.9)
[2020-12-19 08:00] VITALS: O2SAT 98
[2020-12-19 08:03] LABS: ALB/GLOB Ratio 0.5 RATIO (0.9-2.4); AST(SGOT) 44 U/L (15-37); Alanine Aminotransfer ALT/SGPT 35 U/L (16-61); Albumin, Serum 2.4 g/dL (3.2-5.0); Alkaline Phosphatase 77 U/L (45-117); Anion Gap 5 (5-15); BUN 25 mg/dL (7-18); BUN/Creat Ratio 23.8 RATIO (10-20); Calcium,Total 8.8 mg/dL (8.5-10.1); Chloride 107 mmol/L (98-107); Creatinine, Serum 1.05 mg/dL (0.70-1.30); EST Glomerular Filtration Rate 72 mL/min (>60); Est Glom Filt Rate - Afr Amer 87 mL/min (>60); Estimated Creatinine Clearance 48.96 ml/min; Globulin 4.8 g/dL (2.2-4.2); Glucose 88 mg/dL (74-106); Potassium 4.5 mmol/L (3.5-5.1); Protein, Total 7.2 g/dL (6.4-8.2); Sodium Level 135 mmol/L (136-145)
--- NOTE | 2020-12-19 08:15 | PN.HOSP_ITS ---
Objective Data Objective Data Vital Signs: Vital Signs Temp Pulse Resp BP Pulse Ox 98.3 F 58 L 18 130/61 H 100 12/19/20 03:20 12/19/20 03:20 12/19/20 03:20 12/19/20 03:20 12/19/20 03:20 Oxygen Delivery Method Room Air Weight: 100.471 kg Body Mass Index (BMI) 33.5 Intake & Output: Intake and Output for Last 24 Hours 12/17/20 12/18/20 12/19/20 23:59 23:59 23:59 Intake Total 3195 / 3195 250 / 250 Output Total 925 / 925 Balance 2270 / 2270 250 / 250 Lab / Micro Data Result Diagrams: 12/19/20 06:00 12/19/20 06:00 Labs: Laboratory Results - last 24 hr 12/19/20 06:00: WBC 7.0, RBC 4.20 L, Hgb 12.9 L, Hct 39.8 L, MCV 94.8 H, MCH 30.7, MCHC 32.4, RDW Std Deviation 57.2 H, RDW Coeff of Karen 16.4 H, Plt Count 170, MPV 10.9, Immature Gran % (Auto) 0.100, Neut % (Auto) 44.4 L, Lymph % (Auto) 43.2 H, [place] % (Auto) 8.8, Eos % (Auto) 3.1, Baso % (Auto) 0.4, Absolute Neuts (auto) 3.1, Absolute Lymphs (auto) 3.04, Nucleated RBC % 0 12/19/20 06:00: Sodium 135 L, Potassium 4.5, Chloride 107, Carbon Dioxide 23.0, Anion Gap 5, BUN 25 H, Creatinine 1.05, Estim Creat Clear Calc 48.96, Est GFR (MDRD) Af Amer 87, Est GFR (MDRD) Non-Af 72, BUN/Creatinine Ratio 23.8 H, Glucose 88, Calcium 8.8, Total Bilirubin 0.60, AST 44 H, ALT 35, Alkaline Phosphatase 77, Total Protein 7.2, Albumin 2.4 L, Globulin 4.8 H, Albumin/Globulin Ratio 0.5 L Assessment & Plan Assessment/Plan (1) Fall: QUALIFIERS: Encounter type: initial encounter Qualified Code(s): W19.XXXA - Unspecified fall, initial encounter (2) Unable to ambulate: (3) Edema: (4) Nonhealing nonsurgical wound: PLAN: Fall/debility -Prior to admission patient states his knees gave out and he can catch his fall -Patient has had chronic issues with ambulation -PT/OT evaluation in progress -X-ray showed degenerative disease -Urine culture is unimpressive -Patient may need placement at discharge ADITYA on CKD stage IIIa -Continue IV fluids at 75 cc/h -Repeat BMP in the a.m. -If serum creatinine has normalized with discontinue IV fluids tomorrow -Baseline serum creatinine appears to be 1.2-1.3 Bilateral lower extremity edema -Bilateral lower extremity ultrasounds are pending -Suspect this is likely chronic Bilateral lower extremity wounds with delayed wound healing -Continue wound care after discharge -Wound care consultation while patient is hospitalized here -Continue his home [place] for his pain BPH -Continue Proscar -Continue Flomax GERD -Continue PPI CAD/HTN/HPL -Continue home medications History of stroke -Continue aspirin History of pulmonary emboli -Continue Eliquis HFpEF-compensated -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
[2020-12-19 08:59] VITALS: BP 141/74; PULSE 55; RESP 16; TEMP 36.9; O2SAT 100
[2020-12-19] MEDS: Polyethylene Glycol 3350 17 GM PACKET PO (09:19)
[2020-12-19] MEDS: APIXABAN 5 MG TABLET PO (09:19)
[2020-12-19 09:20] VITALS: BP 141/74; PULSE 61
[2020-12-19] MEDS: Metoprolol(XL)Succ 50 MG Tablet PO (09:20)
--- NOTE | 2020-12-19 09:32 | WOUNDNOTE ---
Removed GEOVANNA wraps and dressings. no drainage noted. edema is much improved today. no open areas noted. washed legs and feet with soap and water. pat dry. applied aloe vesta and wrapped with kerlix. reapplied the GEOVANNA wraps from the base of the toes to just below the knees. pt tolerated well.
--- NOTE | 2020-12-19 09:42 | CASEMGMT ---
Addendum entered by Emi Pruitt 12/19/20 14:47: TC to Roseanne at [facility]. She is aware that pt is dc'ing today and referral faxed for resumption. Addendum entered by Emi Pruitt 12/19/20 10:03: Received tc back from Roseanne who states pt was receiving SN services only at this time. Original Note: TC to [facility] to verify that patient is active and to confirm which disciplines he is receiving. Left message on Roseanne liaison's vm with call back information.
--- NOTE | 2020-12-19 12:24 | CASEMGMT ---
Addendum entered by Concha Rdz 12/19/20 13:49: SW still waiting for PT/OT notes, no notes available from today. SW in to speak with pt. Pt confirms he worked with PT, states the other OT will be back in today. Pt states he did alright, states that he feels he is able to return home with [facility]. Pt states that he will need transportation back home. SW updated RN CM. SW updated physician. Plan: Home with [facility] Original Note: Social Work Note SW waiting for PT/OT notes from today. SW in to speak with pt. Pt sitting in chair. Pt states he was told he would be evaluated to see if he can return home. SW asked pt if PT/OT has worked with pt today and pt states they haven't. Pt states PT/OT worked with him yesterday but not today. SW asked pt if he will be coming in today. Pt states after she gets her hair done. SW informed pt that this worker will await PT/OT notes from today, and then will speak with pt about recommendations. Of note, pt did work with PT/OT yesterday and was min assist of 1 and walked 80 feet. Plan: TBD Concha Rdz CONTRACT ACCOUNTANT, OIL ANALYST
--- NOTE | 2020-12-19 14:26 | PCM.DC.SUM ---
Providers Date of Admission: 12/17/20 Primary Care Physician: Dr. Calderon Ramirez MD Consultations 12/17/20 14:38 Consult: Onc/Wound/order department supervisor Routine Comment: Consult: Onc/Wound/order department supervisor Routine Comment: Reason For Visit: RECURRENT FALLS Diagnosis Discharge Diagnosis (1) Fall: Status: Acute Code(s): W19.XXXA - Unspecified fall, initial encounter Qualifiers: Encounter type: initial encounter Qualified Code(s): W19.XXXA - Unspecified fall, initial encounter (2) Unable to ambulate: Status: Acute Code(s): R26.2 - Difficulty in walking, not elsewhere classified (3) Edema: Status: Acute Code(s): R60.9 - Edema, unspecified (4) Nonhealing nonsurgical wound: Status: Acute Code(s): T14.8XXA - Other injury of unspecified body region, initial encounter Medications at Discharge Home Medications metoprolol succinate 50 mg PO DAILY 06/23/13 magnesium oxide 400 mg (241.3 mg magnesium) tablet 400 mg PO DAILY tab 05/08/17 tamsulosin 0.4 mg capsule 0.4 mg PO DAILY 30 Days #30 12/05/17 nitroglycerin 0.4 mg SL Q5M PRN tab.subl 10/13/18 atorvastatin 40 mg tablet 40 mg PO QHS #90 tab 12/11/18 finasteride 5 mg tablet 5 mg PO DAILY #30 tab 12/11/18 hydrocodone-acetaminophen 5-325mg 5mg-325mg 1 tab PO BID PRN PRN #84 tab 12/11/18 pantoprazole 20 mg tablet,delayed release 40 mg PO DAILY #60 tab 12/11/18 aspirin 81 mg PO DAILY@0800 08/31/19 furosemide 40 mg PO BID 08/31/19 apixaban 5 mg tablet 5 mg PO BID tab 12/30/19 isosorbide mononitrate 60 mg tablet,extended release 24 hr 60 mg PO DAILY tablet 07/06/20 Hospital Course Summary of Care Provided Minutes Spent on Discharge: 35 Hospital Course: Patient is an 85-year-old gentleman admitted with progressive generalized weakness and falls 1. Progressive generalized weakness ?Attributed to dehydration managed with IV fluids 2. Acute renal insufficiency ?Patient managed with IV fluid with subsequent monitoring of electrolytes 3. Physical deconditioning - Requested for PT OT eval and social human services assistants to assist with discharge planning. Patient was offered the possibility of going to a intermediate facility he declined and opted for home with home health 4. 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 BPH -He is on both Proscar and Flomax did continue 6. GERD -Continue PPI 7. Hypertension - Blood pressure controlled, home medications continued with dose adjustment as needed 8. Dyslipidemia -Patient is on statin therapy, continued at home dose 9. Coronary artery disease ?With previous CABG and subsequent PCI with stent placement 10. History of previous CVA ?Patient is on antiplatelet therapy with aspirin did continue 11. History of pulmonary emboli -Continue Eliquis 12. HFpEF-compensated -Patient is on Lasix did continue 13. DVT prophylaxis -Continue Eliquis Physical Exam Narrative GENERAL: cooperative HEENT: Atraumatic; EYES; Anicteric, Normal Conjunctiva NECK; supple, normal thyroid, SKIN: No Rash PSYCH; Flat affect Weight / BMI Weight Weight: 100.471 kg Body Mass Index (BMI) 33.5 ABG / Lab / Microbiology Data Result Diagrams: 12/19/20 06:00 12/19/20 06:00 Laboratory: Laboratory Results - last 24 hr 12/19/20 06:00: WBC 7.0, RBC 4.20 L, Hgb 12.9 L, Hct 39.8 L, MCV 94.8 H, MCH 30.7, MCHC 32.4, RDW Std Deviation 57.2 H, RDW Coeff of Karen 16.4 H, Plt Count 170, MPV 10.9, Immature Gran % (Auto) 0.100, Neut % (Auto) 44.4 L, Lymph % (Auto) 43.2 H, [place] % (Auto) 8.8, Eos % (Auto) 3.1, Baso % (Auto) 0.4, Absolute Neuts (auto) 3.1, Absolute Lymphs (auto) 3.04, Nucleated RBC % 0 12/19/20 06:00: Sodium 135 L, Potassium 4.5, Chloride 107, Carbon Dioxide 23.0, Anion Gap 5, BUN 25 H, Creatinine 1.05, Estim Creat Clear Calc 48.96, Est GFR (MDRD) Af Amer 87, Est GFR (MDRD) Non-Af 72, BUN/Creatinine Ratio 23.8 H, Glucose 88, Calcium 8.8, Total Bilirubin 0.60, AST 44 H, ALT 35, Alkaline Phosphatase 77, Total Protein 7.2, Albumin 2.4 L, Globulin 4.8 H, Albumin/Globulin Ratio 0.5 L D/C Instructions Discharge Diet: No restrictions Discharge Activity: Return to Normal Activity Call your doctor if you observe: Fever of 101 or Higher, Shortness of breath, Fainting spells and Chest pain Meaningful Use Info Meaningful Use Diagnoses (Choose all that apply): None applicable Discharge Plan Admission Admit Date/Time: 12/17/20 12:27 Attending Provider: Eugene Barnes Primary Care Provider: Calderon Ramirez Discharge Orders/Prescriptions Prescriptions: Continued magnesium oxide 400 mg tablet 400 mg PO DAILY RF: 0 tamsulosin 0.4 mg capsule 0.4 mg PO DAILY 30 Days Qty: 30 RF: 0 pantoprazole 20 mg tablet,delayed release (DR/EC) 40 mg PO DAILY Qty: 60 RF: 0 finasteride 5 mg tablet 5 mg PO DAILY Qty: 30 RF: 0 hydrocodone-acetaminophen 5-325 mg tablet 1 tab PO BID PRN PRN (Reason: pain) Qty: 84 RF: 0 atorvastatin 40 mg tablet 40 mg PO QHS Qty: 90 RF: 3 isosorbide mononitrate 60 mg tablet extended release 24 hr 60 mg PO DAILY RF: 0 apixaban 5 mg tablet 5 mg PO BID RF: 0 metoprolol succinate 50 MG tablet 50 mg PO DAILY RF: 0 nitroglycerin 0.4 MG tablet, sublingual 0.4 mg SL Q5M PRN (Reason: Cardiac/Chest Pain) RF: 0 furosemide 40 MG tablet 40 mg PO BID RF: 0 aspirin 81 MG tablet,delayed release (DR/EC) 81 mg PO DAILY@0800 RF: 0 Referrals / Follow Up: Calderon Ramirez MD [Primary Care Provider] - Center,Wound [NON-STAFF] - Within 1 Week Disposition Disposition (needs filled in before D/C Order can be placed): Home Health Service Charges/Coding Visit Charges OBSV E&M: 09168 Observation care discharge
[2020-12-19 14:31] VITALS: BP 98/59; PULSE 68; RESP 16; TEMP 36.8; O2SAT 98
--- NOTE | 2020-12-19 15:58 | NURSING ---
dc instructions gone over the phone with over the phone. [facility] transportation being set up
== END 2020-12-19 18:53 | disposition home health service (06) ==
LOC: ED 12:23 → MS3 13:09
PROVIDERS: Internal Medicine; Admitting Provider Internal Medicine; Emergency Provider Emergency Medicine; PCP Family Medicine; Visit Provider Internal Medicine
DX: E86.0 Dehydration (principal); R53.1 Weakness; N40.0 Benign prostatic hyperplasia without lower urinary tract symptoms; K21.9 Gastro-esophageal reflux disease without esophagitis; G47.33 Obstructive sleep apnea (adult) (pediatric); I25.2 Old myocardial infarction; I27.21 Secondary pulmonary arterial hypertension; I87.2 Venous insufficiency (chronic) (peripheral); I50.32 Chronic diastolic (congestive) heart failure; I13.0 Hypertensive heart and chronic kidney disease with heart failure and stage 1 through stage 4 chronic kidney disease, or unspecified chronic kidney disease; I25.10 Atherosclerotic heart disease of native coronary artery without angina pectoris; N18.31 Chronic kidney disease, stage 3a; E78.5 Hyperlipidemia, unspecified; L97.822 Non-pressure chronic ulcer of other part of left lower leg with fat layer exposed; L97.812 Non-pressure chronic ulcer of other part of right lower leg with fat layer exposed; N17.9 Acute kidney failure, unspecified; R26.2 Difficulty in walking, not elsewhere classified; Z91.81 History of falling; Z95.1 Presence of aortocoronary bypass graft; Z86.711 Personal history of pulmonary embolism; Z86.718 Personal history of other venous thrombosis and embolism; Z79.899 Other long term (current) drug therapy; Z79.82 Long term (current) use of aspirin; Z79.01 Long term (current) use of anticoagulants; Z87.891 Personal history of nicotine dependence
CPT/HCPCS: 36415; 70450; 71045; 73502; 73560; 74176; 80048; 80053; 80076; 81001; 85025; 85610; 96360; 96361; 97110; 97162; 97166; 97530; 97802; 99218; 99285; J7030; A4216; G0378

== ENCOUNTER 2021-01-03 11:15 | Outpatient (RCR) | payer MEDICARE, OTHER, SELFPAY ==
[2020-12-29 00:36] VITALS: BP 138/61; PULSE 58; RESP 18; TEMP 36.1; O2SAT 96
[2021-01-03 11:19] VITALS: BP 125/63; PULSE 62; TEMP 36.2
--- NOTE | 2021-01-03 12:02 | PCM.WC.PN ---
History of Present Illness Date of Service: 01/03/21 Chief Complaint: Left Leg Ulcer History of Wound: Mr. Kim is an 85-year-old who was referred by his supervisor communications and signals to the wound center due to recurrent left lower extremity ulcers. Has been seen here for prior ulcers. Most recent said to have started a week ago with blistering which subsequently opened up. Was seen by his supervisor communications and signals who subsequently referred him here. No known precipitating factor. Sleep in his lift chair because he is unable to lay on his back. He however states that he keeps his legs elevated. He has applied nothing. He feels well otherwise and does not report chills, fever, nausea, vomiting or change in bowel habit. Progress of Wound: Patient has only been seen here once over a month ago for his bilateral lower extremity ulcers. Patient was basically admitted and has been in the hospital since then. Patient is here for follow-up after being discharged from the hospital and his legs are now healed. Patient was unable to get his arterial brachial and ultrasounds done in hospital but we will reschedule for outside the hospital. Patient will also be scheduled to see Dr. Egan for his atherosclerotic heart disease and coronary artery disease and he is got peripheral vascular disease of the lower extremities. Patient will continue wearing his compression stockings but he can stop all dressing changes. And patient will be discharged from the wound center we will call him with the results Subjective Subjective Patient is just asking about how he is going to get the arterial brachial study and ultrasounds done and we discussed that we will reschedule that and have him follow-up with Dr. Egan then. Objective Data Objective Data Bilateral lower legs are healed patient just needs to wear a compression stockings that we will give him a double layer Tubigrip that should be taken off while bathing and then reapplied after a lotion with amLactin cream Vital Signs: Vital Signs Temp Pulse Resp BP Pulse Ox 97.2 F L 62 18 125/63 H 96 01/03/21 11:19 01/03/21 11:19 12/29/20 00:36 01/03/21 11:19 12/29/20 00:36 Physical Exam Const oriented x3 General Appearance: cooperative Exam Limitations: no limitations HEENT normocephalic Head and Scalp: normal to inspection Face and Sinus: normal facial exam Nose: external nose normal General Ear: hearing grossly impaired External Ear: external ears normal Mouth: oral and palatal mucosa normal Eyes PERRL General Eye: normal appearance of both eyes Neck full ROM General: normal visual inspection Resp normal respiratory effort Effort and Inspection: able to speak in complete sentences Auscultation: clear to auscultation bilaterally Cardio regular rate and regular rhythm Palpation: normal PMI Rate: regular rate Rhythm: regular rhythm GI Auscultation: normoactive bowel sounds Palpation: soft and no hepatosplenomegaly external exam normal Back/Spine Cervical Spine: cervical ROM normal Thoracic Spine / Upper Back: normal to inspection Lumbar Spine / Lower Back: normal to inspection Extremity normal to inspection General Extremity: normal exam except as noted Skin no rashes or lesions noted Neuro oriented x3 Psych Appearance: grossly normal Speech: normal speech Thought Content: normal thought content Judgement: judgement good Debridement Note Debridement Note Wound debrided: Bilateral lower leg peripheral vascular disease with ulcers No debridement was completed: No debridement was completed today Post-Debridement Measurements and Additional Note: Post-Debridement Measurements/Treatment MARGARITO - Nurse 1 - General Ulcer Assessment Start: 01/03/21 11:19 Freq: Status: Active Protocol: BIANKA Activity Type Activity Date Activity User E-Sign Co-Sign Detail Recorded Client Recorded Date Recorded By Document 01/03/21 11:19 JOSE DE JESUS [id number] 01/03/21 11:31 JOSE DE JESUS 01/03/21 11:19 - Today's Visit Information Type of service Follow-up Visit (Physician/[facility]TER ) Arrival Mode Wheelchair Transfer Assistance Other Transfer Assist (Other) 2 assist Patient Identification Verified (Name & Yes ) Patient Requires Transmission-Based No Precautions Safety Precautions NA Vital Signs Temperature (97.8 F-99.1 F) 97.2 F L Temperature Source Temporal Pulse Rate (60-100) 62 Pulse Location Monitor Blood Pressure (90/60-120/80) 125/63 H Blood Pressure Mean (mm Hg) 83 Source Monitor History Since Last Visit- (Skip if this is Patient's initial visit) Have you changed medications since your No last visit? Any new allergies or adverse reactions No Had a fall/change in ADL's that may No increase risk of falls Signs or symptoms of abuse and/or No neglect since last visit Have you been in the hospital since your No last visit? Has dressing in place as prescribed Yes Has compression in place as prescribed Yes Has offloadiing in place as prescribed N/A Experienced any changes in pain level or No management Left Footwear Regular Shoe Right Footwear Regular Shoe Pain Scale: 0-10 Numeric Is Patient Pain Free? Yes WC - Nurse 1 - General Ulcer Measurement Start: 01/03/21 11:19 Freq: Status: Active Protocol: Activity Type Activity Date Activity User E-Sign Co-Sign Detail Recorded Client Recorded Date Recorded By Document 01/03/21 11:19 JOSE DE JESUS [id number] 01/03/21 11:31 AK 01/03/21 11:19 Wound Center Nurse 1 #9 left medial ankle -Combined with other wound No -Current Size (cm) - Length 0.1 -Current Size (cm) - Width 0.1 -Current Size (cm) - Depth 0.1 -Total Square Cm 0.01 -Photo Taken No -Epithelialization Large 67-100% -Tunneling No -Undermining/Tunneling No -Circular Undermining No -Change in Wound Grade/Stage No -Exudate Amt None Present -Granulation Amt None Present (0 %) -Slough/Fibrin No -Necrosis Amt None Present (0 %) -Structure Exposed N/A -Texture (Renata-wound Skin Appearance) Assessed, Scarring -Moisture (Renata-wound Skin Appearance) Assessed,Dry/ Scaly -Color (Renata-wound Skin Appearance) No Abnormality, Assessed -Temperature (Renata-wound Skin No Abnormality Appearance) (Pt Warm) -Ulcer Cleansing Soap and Water -Foul Odor after Cleansing No -Anesthetic Used 5% Lidocaine Gel #8 Right Med Calf -Current Size (cm) - Length 0.1 -Current Size (cm) - Width 0.1 -Current Size (cm) - Depth 0.1 -Total Square Cm 0.01 -Exudate Amt None Present -Wound Margin Indistinct, Non -Visible #7 left Garcia -Combined with other wound No -Current Size (cm) - Length 0.1 -Current Size (cm) - Width 0.1 -Current Size (cm) - Depth 0.1 -Total Square Cm 0.01 -Photo Taken No -Tunneling No -Undermining/Tunneling No -Circular Undermining No -Change in Wound Grade/Stage No -Exudate Amt None Present -Wound Margin Distinct, Outline Attached -Granulation Amt Small (1-33%) -Granulation Quality [place] -Texture (Renata-wound Skin Appearance) Assessed, Scarring -Moisture (Renata-wound Skin Appearance) Assessed,Dry/ Scaly -Color (Renata-wound Skin Appearance) No Abnormality, Assessed -Temperature (Renata-wound Skin No Abnormality Appearance) (Pt Warm) -Tenderness on Palpation (Renata-wound No Skin Appearance) -Ulcer Cleansing Rinsed/ Irrigated with Saline -Foul Odor after Cleansing No -Anesthetic Used 5% Lidocaine Gel Right Calf (cm) 38.2 Right Ankle (cm) 23.1 WC - Nurse 2 - General Ulcer CM Notes Start: 01/03/21 11:19 Freq: Status: Active Protocol: Activity Type Activity Date Activity User E-Sign Co-Sign Detail Recorded Client Recorded Date Recorded By Document 01/03/21 11:43 MW [id number] 01/03/21 11:50 MW 01/03/21 11:43 Wound Center Nurse 2 #9 left medial ankle -Time 11:43 -Correct Patient Yes -Correct Side, Site, Position Yes -Correct Procedure Yes -Procedure Performed No -Post Debridement (cm) - Length 0 -Post Debridement (cm) - Width 0 -Post Debridement (cm) - Depth 0 -Total Square (Post) (cm) 0 -Wound/Ulcer Outcome Healed- Epithelialized #8 Right Med Calf -Time 11:45 -Correct Patient Yes -Correct Side, Site, Position Yes -Correct Procedure Yes -Procedure Performed No -Tissue Removed Subcutaneous -Post Debridement (cm) - Length 0 -Post Debridement (cm) - Width 0 -Post Debridement (cm) - Depth 0 -Total Square (Post) (cm) 0 -Wound/Ulcer Outcome Healed- Epithelialized #7 left Garcia -Time 11:46 -Correct Patient Yes -Correct Side, Site, Position Yes -Correct Procedure Yes -Procedure Performed No -Post Debridement (cm) - Length 0 -Post Debridement (cm) - Width 0 -Post Debridement (cm) - Depth 0 -Total Square (Post) (cm) 0 -Wound/Ulcer Outcome Healed- Epithelialized Pain Scale: 0-10 Numeric Is Patient Pain Free? Yes Assessment/Plan Assessment/Plan (1) Ulcer of left lower extremity with fat layer exposed: CODE(S): L97.922 - Non-pressure chronic ulcer of unspecified part of left lower leg with fat layer exposed PLAN: Patient be rescheduled for arterial brachial and venous studies and referred to Dr. Egan. Patient will be discharged from the wound center (2) Venous insufficiency: CODE(S): I87.2 - Venous insufficiency (chronic) (peripheral) (3) Bilateral leg edema: CODE(S): R60.0 - Localized edema PLAN: She is to continue compression stockings till seen by Dr. Egan and use of AmLactin cream to the legs to get the dry skin off.
== END 2021-01-28 23:59 ==
LOC: WC 11:15
PROVIDERS: PCP Family Medicine; Visit Provider Nurse Practitioner
DX: I73.9 Peripheral vascular disease, unspecified (principal); L97.822 Non-pressure chronic ulcer of other part of left lower leg with fat layer exposed; I25.10 Atherosclerotic heart disease of native coronary artery without angina pectoris; R60.0 Localized edema; I87.2 Venous insufficiency (chronic) (peripheral)
CPT/HCPCS: 99213; G0463

== ENCOUNTER → 2021-02-09 15:02 | Outpatient (CLI) | payer MEDICARE, OTHER, SELFPAY ==
[2021-02-09 17:31] LABS: Anion Gap 6 (5-15); BUN 16 mg/dL (7-18); BUN/Creat Ratio 11.1 RATIO (10-20); Calcium,Total 8.8 mg/dL (8.5-10.1); Chloride 106 mmol/L (98-107); Creatinine, Serum 1.44 mg/dL (0.70-1.30); EST Glomerular Filtration Rate 50 mL/min (>60); Est Glom Filt Rate - Afr Amer 60 mL/min (>60); Glucose 88 mg/dL (74-106); Sodium Level 139 mmol/L (136-145)
== END ==
PROVIDERS: PCP Family Medicine; Referring Provider Family Medicine; Visit Provider Family Medicine
DX: R60.9 Edema, unspecified (principal)
CPT/HCPCS: 36415; 80048

== ENCOUNTER → 2021-03-14 11:05 | Outpatient (CLI) | payer MEDICARE, OTHER, SELFPAY ==
--- NOTE | 2021-03-14 11:09 | VDLE_ITS ---
Reason For Study: Swelling RIGHT LEFT CFV is compressible, spontaneous, phasic, CFV is compressible, spontaneous, phasic, competent and demonstrates normal competent, and demonstrates normal augmentation. augmentation. FV is compressible, spontaneous, phasic, FV is compressible, spontaneous, phasic, competent and demonstrates normal competent and demonstrates normal augmentation. augmentation. POP V is compressible, spontaneous, phasic, POP V is compressible, spontaneous, phasic, competent and demonstrates normal competent and demonstrates normal augmentation. augmentation. T/P Trunk is compressible. T/P Trunk is compressible. PTV is compressible. PTV is compressible. RT PerV is compressible. LT PerV is compressible. SFJ is competent and measures 0.61 x 0.60 cm. SFJ is competent and measures 0.47 x 0.54 cm. GSV proximal thigh measures 0.46 x 0.48 cm. GSV proximal thigh measures 0.40 x 0.38 cm. GSV at knee measures 0.34 x 0.36 cm. GSV above knee is competent. GSV is competent throughout. GSV at knee measures 0.22 x 0.25 cm. SSV at junction is competent and measures GSV below knee is INCOMPETENT for greater 0.21 x 0.21 cm. than 0.5 seconds. Procedure INCOMPETENT document management analyst noted 14 cm above This is a venous duplex using B-mode, color medial malleolus. flow and spectral Doppler. SSV at junction is INCOMPETENT for greater Exam performed in department. than 0.5 seconds and measures 0.22 x 0.25 cm. VL/Venous Duplex US - Donal Extrem Interpretation Summary Bilateral no evidence of DVT or SVT visualized. The left below-knee greater sap henous vein with reflux noted. LSV small at 2.5 mm with reflux at the junction. Ordering Physician: Rubén Egan Referring Physician: Calderon Ramirez Performed By: Concha Fraire RVT
== END ==
PROVIDERS: PCP Family Medicine; Referring Provider Surgery Vascular Surgery; Visit Provider Surgery Vascular Surgery
DX: M79.89 Other specified soft tissue disorders (principal); I82.592 Chronic embolism and thrombosis of other specified deep vein of left lower extremity; I83.009 Varicose veins of unspecified lower extremity with ulcer of unspecified site; G83.9 Paralytic syndrome, unspecified; I51.9 Heart disease, unspecified; E78.70 Disorder of bile acid and cholesterol metabolism, unspecified; Z86.711 Personal history of pulmonary embolism; Z86.73 Personal history of transient ischemic attack (TIA), and cerebral infarction without residual deficits
CPT/HCPCS: 93970

== ENCOUNTER 2021-05-09 14:48 | Outpatient (CLI) | payer MEDICARE, OTHER, SELFPAY ==
[2021-05-09 18:38] LABS: Anion Gap 5 (5-15); BUN 15 mg/dL (7-18); BUN/Creat Ratio 11.4 RATIO (10-20); Calcium,Total 8.9 mg/dL (8.5-10.1); Chloride 109 mmol/L (98-107); Cholesterol 128 mg/dL (200); Creatinine, Serum 1.32 mg/dL (0.70-1.30); EST Glomerular Filtration Rate 55 mL/min (>60); Est Glom Filt Rate - Afr Amer 66 mL/min (>60); Glucose 92 mg/dL (74-106); High Density Lipoprotein 39 mg/dL; Sodium Level 142 mmol/L (136-145); Triglycerides 146 mg/dL
[2021-05-09 18:39] LABS: PSA,Total - Annual Screen 0.51 ng/mL (0.00-4.00); Very Low Density Lipoprotein 29 mg/dL (5-40)
== END 2021-05-09 23:59 | disposition home or self-care (01) ==
LOC: MFPLAB 14:58
PROVIDERS: PCP Family Medicine; Referring Provider Family Medicine; Visit Provider Family Medicine
DX: I25.10 Atherosclerotic heart disease of native coronary artery without angina pectoris (principal); N40.0 Benign prostatic hyperplasia without lower urinary tract symptoms; Z12.5 Encounter for screening for malignant neoplasm of prostate
CPT/HCPCS: 36415; 80048; 80061; 84153; G0103